=== PATIENT | male | born 1935 | race Caucasian/White ===

== ENCOUNTER 2020-08-02 10:48 | Outpatient (CLI) | payer MEDICARE, OTHER, SELFPAY ==
--- NOTE | 2020-08-02 11:02 | USCV_ITS ---
Jesus Saucedo Age: 84 Gender: M : 1935 Exam Date: 08/02/2020 11:22 Ordering Phys: Lisa Murrieta MD Technologist: Leslie Hernandez [place] [facility] [place]: afib BP: 166 / 94 HR: 57 Rhythm: Atrial fibrillation Technical Quality: Good MEASUREMENTS (Male / Female) Normal Values 2D ECHO LV Diastolic Diameter PLAX 6.0 cm 4.2 - 5.9 / 3.9 - 5.3 cm LV Systolic Diameter PLAX 4.3 cm LV Chamber Size 4.6 cm IVS Diastolic Thickness 1.3 cm 0.6 - 1.0 / 0.6 - 0.9 cm IVS Systolic Thickness 2.3 cm LVPW Diastolic Thickness 1.5 cm 0.6 - 1.0 / 0.6 - 0.9 cm LVPW Systolic Thickness 1.9 cm RV Chamber Size 3.0 cm LVOT Diameter 2.1 cm LV Ejection Fraction 2D Teich 54.0 % LV Ejection Fraction MOD 2C 36.9 % LV Ejection Fraction 2C AL 42.1 % LA Diameter 6.7 cm LA Width 3.5 cm LA Height 5.4 cm RA Width 4.0 cm RA Height 4.8 cm Aorta at Sinotubular Diameter 3.2 cm M-MODE LV Diastolic Diameter MM 5.3 cm 4.2 - 5.9 / 3.9 - 5.3 cm LV Systolic Diameter MM 4.5 cm LV Ejection Fraction MM Teich 32.6 % IVS Diastolic Thickness MM 2.0 cm 0.6 - 1.0 / 0.6 - 0.9 cm IVS Systolic Thickness MM 2.1 cm LVPW Diastolic Thickness MM 2.4 cm 0.6 - 1.0 / 0.6 - 0.9 cm LVPW Systolic Thickness MM 2.7 cm RV Diastolic Diameter MM 1.9 cm Aortic Annulus Diameter 3.4 cm LA Ao Ratio MM 1.9 MV E Point Septal Separation 1.2 cm DOPPLER AV Peak Velocity 167.0 cm/s LVOT Peak Velocity 58.0 cm/s AV Area Cont Eq vti 1.5 cm squared AV Area Cont Eq pk 1.2 cm squared MV Area PHT 3.9 cm squared Mitral E to A Ratio 75.8 MV E' Velocity 91.0 cm/s TR Peak Velocity 267.7 cm/s TR Peak Gradient 28.7 mmHg TR Mean Velocity 188.1 cm/s TR Mean Gradient 16.5 mmHg TR Velocity Time Integral 94.8 cm TV Peak E Velocity 57.0 cm/s Right Atrial Pressure 3.0 mmHg Pulmonary Artery Systolic Pressu 31.7 mmHg PV Peak Velocity 87.0 cm/s RV Acceleration Time 0.1 s RV Ejection Time 0.4 s RV AcT/ET 0.3 FINDINGS Left Ventricle Mildly dilated left ventricle. LV systolic function is mildly reduced with EF of 40 to 45%. Mild global hypokinesis is seen. Diastolic function is indeterminate because of atrial fibrillation. Right Ventricle The right ventricle is normal in size and function. Right Atrium The right atrium is enlarged. Left Atrium The left atrium is severely enlarged. Mitral Valve Structurally normal mitral valve without significant stenosis or prolapse. There is moderate eccentric mitral regurgitation. Aortic Valve Structurally normal aortic valve without significant sclerosis or stenosis. There is mild aortic regurgitation. Tricuspid Valve Structurally normal tricuspid valve without significant stenosis. Mild tricuspid regurgitation. RVSP is 30 to 35 mmHg. This is consistent with mild pulmonary hypertension. Pulmonic Valve Structurally normal pulmonic valve without significant stenosis. There is no pulmonic regurgitation. Pericardium Normal pericardium without effusion. Aorta Normal ascending aorta dimension. CONCLUSIONS Mildly dilated left ventricle. LV systolic function is mildly reduced with EF of 40 to 45%. Mild global hypokinesis is seen. Diastolic function is indeterminate because of atrial fibrillation. Biatrial enlargement is seen. Mitral valve has moderate eccentric mitral regurgitation. Mild pulmonary hypertension is seen. Mild aortic regurgitation is noted. No comparison studies are available. Ayaan Sen MD (Electronically Signed) Final Date: 11 August 2020 17:42 S
== END 2020-08-02 10:49 | disposition home or self-care (01) ==
LOC: RAD 10:57
PROVIDERS: PCP Family Medicine; Visit Provider Internal Medicine Interventional Cardiology
DX: I48.91 Unspecified atrial fibrillation (principal); I25.10 Atherosclerotic heart disease of native coronary artery without angina pectoris; E78.5 Hyperlipidemia, unspecified; I42.9 Cardiomyopathy, unspecified; I08.0 Rheumatic disorders of both mitral and aortic valves; I27.20 Pulmonary hypertension, unspecified
CPT/HCPCS: 93306

== ENCOUNTER 2021-04-11 15:46 | Inpatient (IN) | payer MEDICARE, OTHER, SELFPAY ==
[2021-04-11] VITALS (12 sets, daily range): BP systolic 97–140; BP diastolic 51–73; PULSE 49–83; RESP 14–20; TEMP 36.4–37.1; O2SAT 83–100
--- NOTE | 2021-04-11 | XRR_ITS ---
PROCEDURE INFORMATION: Exam: XR Chest Exam date and time: 04/11/2021 4:43 PM Age: 85 years old Clinical indication: Device placement; Other: Et and og placement; Additional info: Et/og placement TECHNIQUE: Imaging protocol: XR of the chest. Views: 1 view. COMPARISON: No relevant prior studies available. FINDINGS: Tubes, catheters and devices: The endotracheal tube tip is in the upper thoracic trachea 5.7 cm above the robin. The orogastric tube is positioned in the stomach, well beyond the diaphragmatic hiatus. The tip is not imaged. Lungs: There is no consolidation. Pleural spaces: There is no pleural effusion or pneumothorax. Heart/Mediastinum: There is moderate enlargement of the cardiac silhouette. Bones/joints: Bones are unremarkable. XR/XR chest 1V portable [id number] IMPRESSION: 1. Endotracheal tube is in the upper thoracic trachea 5.7 cm above the robni. 2. OG tube is in the stomach. The tip is not imaged. Radiation Dose CTDIVOL = (mGy): DLP = (mGy-cm)
--- NOTE | 2021-04-11 16:02 | ECG_ITS ---
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 Measurements Intervals [place] Rate: 198 P: TX: QRS: 220 QRSD: 160 T: 60 QT: 232 QTc: 422 Interpretive Statements VENTRICULAR TACHYCARDIA RIGHT AXIS DEVIATION [QRS AXIS > 100] RIGHT BUNDLE BRANCH BLOCK [120+ ms QRS DURATION, UPRIGHT V1, 40+ ms S IN I/aVL/V4/V5/V6] No previous ECG available for comparison Electronically Signed On 04-12-2021 21:31:50 CDT by Ayaan Sen M.D. [id number] brissa
--- NOTE | 2021-04-11 16:20 | ECG_ITS ---
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 Measurements Intervals [place] Rate: 58 P: AR: QRS: 11 QRSD: 139 T: -36 QT: 481 QTc: 474 Interpretive Statements JUNCTIONAL RHYTHM DIFFUSE ST DEPRESSIONS No previous ECG available for comparison Electronically Signed On 04-12-2021 21:31:05 CDT by Ayaan Sen M.D. [id number] f
--- NOTE | 2021-04-11 16:24 | XACV_ITS ---
Ht: 188 cm Wt: 91 kg BSA: 2.18 m2 Gender: Male : 1935 Any Known Allergies: No known allergies Exam Priority: Routine Procedure(s): Procedure Description: Diagnostic procedure Procedure Description: PCI procedure Procedure Description: Drug Eluting Coronary Stent Procedure Description: PTCA Procedure Description: Miscellaneous Procedure Description: ACT Procedure Description: Coronary Angiography Diagnostic Cath Status: Emergency Diagnostic Findings * INDICATION: Patient presented with chest pain and dizziness. Found to be in ventricular tachycardia in the emergency room. Underwent successful cardioversion and is intubated and sedated. * Circumflex has luminal irregularities. * Left Main: minimal 30% stenosis, VENKAT: 3 flow. * Proximal Left Anterior Descending to Mid Left Anterior Descending: significant 80% stenosis, VENKAT: 3 flow. * Proximal Right Coronary Artery: subtotal occlusion, VENKAT: 3 flow. * Coronary angiography shows right dominance. PCI Status: Emergency PCI Indication: Other Interventional Findings * INDICATION: Ventricular tachycardia/ Critical ostial RCA/ Severe proximal LAD stenosis. * Procedure details: We engaged RCA with a JR4 guide catheter. IV heparin was administered to maintain an ACT above 250 seconds. A 0.014 run-through guidewire was used to cross the stenosis and was placed in distal vessel. 2.5 x 8 mm semicompliant balloon was used to predilate the stenosis in the ostial RCA. This was followed by placement of 3.0 x 12 mm resolute [place] drug-eluting stent. We postdilated the proximal part of stent with 3.5 x 8 mm NC balloon. There was concern for geographical miss of the ostium. We then placed a second stent 3.0x8mm ALEXANDRA proximally. Same 3.5x8mm NC balloon was used to post dilate the stent. Guidewire and guide catheter were removed. Final angiogram was performed that showed excellent stent expansion, VENKAT-3 flow and no residual stenosis. Guidewire and guide catheter were removed. We then turned our attention to the proximal LAD. We engaged the left main artery with XB 3.5 guide catheter. This was followed crossing the stenosis of 0.014 run-through guidewire. We predilated LAD stenosis with a 2.5 x 8 mm semicompliant balloon. With then placed 3.0 x 18 mm resolute [place] drug-eluting stent in proximal LAD. This was followed by placement of a second 3.0 x 15 mm drug-eluting stent overlapping with the proximal stent. We postdilated proximal part of stents with 3.5 x 8 mm NC balloon. At this time, final angiogram was performed that showed excellent stent expansion, no residual stenosis at VENKAT-3 flow.Patient left the Ux Architect in a stable condition. * Proximal Left Anterior Descending to Mid Left Anterior Descendin% stenosis treated with a AB TREK 2.50X8 RX BALLOON, AB TREK 2.75X15 RX BALLOON, MDT R LORAINE 3.0X18 ALEXANDRA, MDT R LORAINE 3.0X15 ALEXANDRA, and MDT NC EUPHORA RX 3.39T26CE BALLOON. 0% residual stenosis, VENKAT: 3 flow. * Proximal Right Coronary Artery: 99% stenosis treated with a AB TREK 2.50X8 RX BALLOON, MDT R LORAINE 3.0X12 ALEXANDRA, MDT NC EUPHORA RX 3.50F63VN BALLOON, and MDT R LORAINE 3.0X8 ALEXANDRA. 0% residual stenosis, VENKAT: 3 flow. Conclusions 1. Severe 99% ostial RCA stenosis s/p successful revascularization with ALEXANDRA x 2. 2. Severe proximal LAD stenosis s/p successful revascularization with ALEXANDRA X 2. Recommendations * Transfer to ICU. * Continue plavix. Will restart Eliquis tonight. * High intensity statin therapy. * Attempt extubation today. * Beta ashley therapy. Interventional RX Recommendation: PCI w/o planned CABG Diagnostic RX Recommendation: PCI w/o planned CABG Anticoagulation: Heparin Pressures Phase:Rest AO : 118 / 56 ( 78 ) @ 4:21:00 PM 186 / 93 ( 130 ) @ 4:46:00 PM 99 / 56 ( 73 ) @ 5:12:00 PM 126 / 64 ( 86 ) @ 5:25:00 PM Clinical Evaluation EBL: 5mL-10mL Procedural Details Pre-Procedure Time Out. Identified patient by full name and date of as verbalized by the patient/guarantor. Does the consent match the physician's order: N/A Emergent. Accurate & Complete Informed Consent: N/A Emergent. Inpatient/Outpatient History & Physical on Chart: N/A Emergent. If H&P is completed, is and addenduem needed: N/A Emergent; If yes, is the addendum complete: N/A Emergent. Visualize and Verify Site with Patient/Guarantor: N/A. Relevant Radiology Images available: N/A Emergent. Pre-op teaching completed and patient verbalized understanding. The risks, benefits, and alternatives of sedation and/or procedure were discussed by physician. The patient agrees to continue. Procedure started. [facility] Clinical Fraility Score: 5: Mildly Frail. Ux Architect Indications: ACS <= 24 hours. Chest Pain Symptom Assessment: Asymptomatic. Cardiovascular Instability: Yes, if yes, Hemodynamic Instability. Correct patient, site and procedure confirmed by cath team. PERRLA. 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 Lungs clear x 5 lobes. Equipment: 6F - Femoral. Physician arrived. Cardiac Cath Pack. ACIST Manifold Kit Model BT 2000. Heparinized Saline (2 units/mL), 1000 mL bag. Kit, Micropuncture. Physician scrubbed in. Immediate Pre-Procedure Time Out. Correct Patient: Yes; Correct Procedure: Yes; Correct Site: N/A Emergent; Correct Patient Position: N/A Emergent; Correct Supplies: N/A Emergent; Dried Flammable Prep: N/A Emergent; Blood Products Available: N/A Emergent;. bilateral groins was prepped with chloroprep then draped in the usual sterile fashion. Baseline sample Acquired. HR: 54 BPM. Patient arrived to lab pack chemist on a ventilator and will be managed by respiratiory. Lidocaine 1% infiltrated to the right groin. Arterial access obtained with micropuncture set. A 5 malagasy JL4 catheter in over wire. Multiple views taken of left coronary artery. Catheter removed over the standard wire. A CRD 5F JR4 Diagnostic Catheter was advanced over the wire and used for Right coronary angiography. Catheter removed over the standard wire. Inventory is CRD 6FR JR 4 GUIDE 100cm. Trinidad Graves RN circulating nurse for procedure. 6 malagasy JR 4 guide catheter was inserted over the wire. Runthrough guidewire was advanced through the guide catheter to lesion in the prox RCA. Inflation number : 1 A AB TREK 2.50X8 RX BALLOON was prepped and advanced across the Prox RCA , then inflated to 8 KAYLAH for 0:06 seconds. Inflation number: 2 The AB TREK 2.50X8 RX BALLOON was reinflated across the Prox RCA, to 8 KAYLAH for 0:18 seconds. Inflation number: 3 The AB TREK 2.50X8 RX BALLOON was reinflated across the Prox RCA, to 12 KAYLAH for 0:16 seconds. Balloon out. Inflation Number : 4 A MDT R LORAINE 3.0X12 ALEXANDRA -Lot Number# [id number] exp date 12/02/2023 was prepped and advanced across the Prox RCA. The stent was deployed at 14 KAYLAH for 0:25 seconds. Stent balloon out over wire. Results checked. Inflation number : 5 A MDT NC EUPHORA RX 3.44Z50RC BALLOON was prepped and advanced across the Prox RCA , then inflated to 12 KAYLAH for 0:24 seconds. Inflation number: 6 The MDT NC EUPHORA RX 3.12F56UN BALLOON was reinflated across the Prox RCA, to 14 KAYLAH for 0:17 seconds. Inflation number: 7 The MDT NC EUPHORA RX 3.84D19AR BALLOON was reinflated across the Prox RCA, to 12 KAYLAH for 0:13 seconds. Balloon out. Inflation Number : 8 A MDT R LORAINE 3.0X8 ALEXANDRA -Lot Number# [id number] exp date 12/24/2021 was prepped and advanced across the Prox RCA. The stent was deployed at 12 KAYLAH for 0:23 seconds. Stent balloon out over wire. Pt arrived to lab pack chemist with multiple drips running, including fentanyl, versed, dopamine. Inflation number: 9 The MDT NC EUPHORA RX 3.56U89NA BALLOON was reinflated across the Prox RCA, to 14 KAYLAH for 0:18 seconds. Balloon out. Wire out. Results checked. Guide catheter out. ACT drawn. Results 251 seconds. Therapeutic limits - pre-heparin administration 90-150 seconds and monitoring heparin during a vascular procedure >250 seconds. Inventory is CRD 6 FR XB 3.5 GUIDE. 6 malagasy XB 3.5 guide catheter was inserted over the wire. Runthrough guidewire was advanced through the guide catheter to lesion in the prox LAD. A second Runthrough guidewire was advanced through the guide catheter to lesion in the mid LAD. Second runthrough wire removed. Inflation number: 1 The AB TREK 2.50X8 RX BALLOON was reinflated across the Prox LAD, to 8 KAYLAH for 0:15 seconds. Inflation number: 2 The AB TREK 2.50X8 RX BALLOON was reinflated across the Prox LAD, to 12 KAYLAH for 0:27 seconds. Balloon out. Inflation number : 3 A AB TREK 2.75X15 RX BALLOON was prepped and advanced across the Prox LAD , then inflated to 10 KAYLAH for 0:22 seconds. Inflation number: 4 The AB TREK 2.75X15 RX BALLOON was reinflated across the Prox LAD, to 10 KAYLAH for 0:16 seconds. Inflation number: 5 The AB TREK 2.75X15 RX BALLOON was reinflated across the Prox LAD, to 8 KAYLAH for 0:22 seconds. Inflation number: 6 The AB TREK 2.75X15 RX BALLOON was reinflated across the Prox LAD, to 8 KAYLAH for 0:17 seconds. Balloon out. Inflation Number : 7 A MDT R LORAINE 3.0X18 ALEXANDRA -Lot Number# [id number] exp date 07/28/2022 was prepped and advanced across the Prox LAD. The stent was deployed at 12 KAYLAH for 0:32 seconds. Stent balloon out over wire. Inflation Number : 8 A MDT R LORAINE 3.0X15 ALEXANDRA -Lot Number# [id number] exp date 06/15/2022 was prepped and advanced across the Prox LAD. The stent was deployed at 12 KAYLAH for 0:25 seconds. Inflation number: 9 The stent balloon was then re-inflated across the Prox LAD to 12 KAYLAH for 0:12 seconds. Stent balloon out over wire. Inflation number: 10 The MDT NC EUPHORA RX 3.58Q46VC BALLOON was reinflated across the Prox LAD, to 16 KAYLAH for 0:16 seconds. Inflation number: 11 The MDT NC EUPHORA RX 3.18O01VK BALLOON was reinflated across the Prox LAD, to 12 KAYLAH for 0:15 seconds. Inflation number: 12 The MDT NC EUPHORA RX 3.05P18FI BALLOON was reinflated across the Prox LAD, to 16 KAYLAH for 0:22 seconds. Balloon out. Results checked. Wire out. Guide catheter out. Blood drawn to send to lab. ACT drawn. Results 349 seconds. Therapeutic limits - pre-heparin administration 90-150 seconds and monitoring heparin during a vascular procedure >250 seconds. A Right femoral angiogram was performed to determine safe placement of closure device. Ventilator Settings: TV: 500, FI02: 100, Mode: ac-vc, Rate: 14, PEEP: 5. A Angio-Seal VIP ([facility]. Kailash) was successful obtaining hemostatsis at the Right Femoral artery insertion site. Angioseal placed without complications. No signs or symptoms of hematoma noted. Sterile dressing applied per usual sterile fashion. Post Procedure: Pulses reassessed and unchanged. PERRLA. 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 Post-op diagnosis: cardiac arrest. Complications: none. Estimated blood loss: 5mL-10mL. No VTE prophylaxis required. Medication's Wasted: Nitro = 49.6 mg. Medication's Wasted: Heparin = 1000. units. Contrast type used: Omnipaque 300 mgI/mL, 500 mL bottle. Procedure completed. Patient transferred by bed to ICU. Vital chart was stopped. Access Site Site: Right Femoral artery Sheath Size: 6 Fr Hemostasis Method: Angio-Seal VIP ([facility]. Kailash) Hemostasis Success: Successful Procedure Medications Start: 5:19 PM Stop: 5:19 PM Medication: Heparin Amount: 5000 units Route: I.V. Start: 5:30 PM Stop: 5:30 PM Medication: Heparin Amount: 1000 units Route: I.V. Start: 5:30 PM Stop: 5:30 PM Medication: Aggrastat 12.5 mg/250 mL Amount: 46 ml Route: I.V. bolus Start: 5:33 PM Stop: 5:33 PM Medication: Aggrastat 12.5 mg/250 mL Amount: 16.6 ml/hr Route: I.V. bolus Start: 5:37 PM Stop: 5:37 PM Medication: Nitrogylcerin Amount: 200 mcg Route: I.C. Start: 5:53 PM Stop: 5:53 PM Medication: Heparin Amount: 2000 units Route: I.V. Start: 5:53 PM Stop: 5:53 PM Medication: Hydralazine Amount: 10 mg Route: I.V. Start: 6:06 PM Stop: 6:06 PM Medication: Heparin Amount: 1000 units Route: I.V. Start: 6:10 PM Stop: 6:10 PM Medication: Versed Amount: 1 mg Route: I.V. Start: 6:21 PM Stop: 6:21 PM Medication: Nitrogylcerin Amount: 200 mcg Route: I.C. Start: 6:22 PM Stop: 6:22 PM Medication: Heparin Amount: 1000 units Route: I.V. I, the attending physician, have reviewed and verified all procedure medications. Yes, all medications given per verbal order History/Risk Factors Hypertension: No Dyslipidemia: No Peripheral Arterial Disease (PAD): No Myocardial Infarction (WI): No Obesity: No Renal Disease: No Prior Interventions PCI: Yes CABG: No Valve Surgery: No Report Signatures Finalized by Ayaan Sen MD on 04/26/2021 01:58 PM
--- NOTE | 2021-04-11 16:53 | P.HP_ITS ---
Providers/Chief Complaint Admitting Physician: Ayaan Sen MD Primary Care Provider: Gene Peralta Chief Complaint: CP, Dizzy, Trouble Breathing History of Present Illness Jesus Saucedo is a 85 year old male with PMH of Coronary artery disease and hypertension patient started presented with chest pain and dizziness. According to his daughter, he was driving with her when complained of sudden onset dizziness, severe chest pain and shortness of breath. She switched places with him and drove him to the ER. In the ER he was found to be in Ventricular tachycardia and shocks x 3. He was also intubated. Per ER physician, he was mentating well even after the shock. Intubated and sedated. Post arrest EKG shows diffuse ST depressions. laboratory associate was activated and patient taken emergently to the collaborative physician. Coronary angiogram of the also had a thrombotic 99% occlusion of ostial RCA and severe proximal LAD stenosis. He underwent successful revascularization of both vessels. Review of Systems General: Reports: ROS unobtainable due to endotracheal tube and ROS unobtainable due to medical condition Medications/Allergies Home Medications Medication Instructions Recorded Confirmed Last Taken Type apixaban [Eliquis] 2.5 mg PO BID 04/12/21 04/12/21 Unknown History carvedilol 12.5 mg PO BID 04/12/21 04/12/21 Unknown History ezetimibe 10 mg PO DAILY 04/12/21 04/12/21 Unknown History furosemide 40 mg PO BID 04/12/21 04/12/21 Unknown History isosorbide mononitrate 30 mg PO DAILY 04/12/21 04/12/21 Unknown History losartan 25 mg PO DAILY 04/12/21 04/12/21 Unknown History nitroglycerin 0.4 mg SUBLINGUAL Q5MIN PRN 04/12/21 04/12/21 Unknown History potassium chloride 20 meq PO BID 04/12/21 04/12/21 Unknown History rosuvastatin 40 mg PO DAILY 04/12/21 04/12/21 Unknown History Allergies Allergy/AdvReac Type Severity Reaction Status Date / Time JACKIE Inhibitors Allergy Unknown Unknown Verified 04/12/21 10:57 PFSH Acute PFSH: Medical History (Updated 04/12/21 @ 11:15 by Ayaan Sne M.D) Coronary artery disease Hypertension Vitals/I&O/Wt Last Vital Signs Temp 97.5 F L 04/11/21 16:41 Pulse 83 04/11/21 16:41 Resp 20 H 04/11/21 16:41 Pulse Ox 96 04/11/21 16:41 Physical Exam Narrative: EXAM NARRATIVE: GENERAL: Patient is intubated and sedated NECK: No jugular vein distension. [] HEENT: No cyanosis. No icterus. No pallor. [] HEART: Bradycardic. S1 plus S2. LUNGS: Mild crackles ABDOMEN: Soft, nontender and nondistended. Positive bowel sounds. No guarding, rebound or tenderness. [] CENTRAL NERVOUS SYSTEM: Intubated and sedated EXTREMITIES: Lower extremities with 1+ edema bilaterally. Pulses palpable in the lower extremities, both dorsalis pedis and posterior tibial. [] Data : 04/12/21 04:51 04/12/21 04:51 A&P Assessment and plan (1) Ventricular tachycardia: Status: Acute (2) Coronary artery disease: Status: Acute (3) Hypertension: Status: Acute (4) Congestive heart failure: Status: Acute Patient presented with acute onset chest pain and went into ventricular tachycardia/cardiac arrest in the ER, had cardioversion shocks x 3. Taken emergently to collaborative physician Transfer to ICU Aspirin and Plavix Wean off lidocaine drip. We we will start metoprolol at a low dose versus bradycardic. Order echocardiogram. ECHO from july showed mildly reduced LV systolic function High intensity statin therapy. Monitor electrolytes and creatinine We will consult the hospitalist team for help with management of Vent and other medical conditions. Appreciate their recommendations. Attestations Medical Necessity Statement*: Care expected to cross 2 midnights. Patient presented with NM and cardiac arrest. Status post successful revascularization. Intubated and sedated currently. Coding Level of Care Code Acute Change Management Specialist for [facility] Diagnoses Ventricular tachycardia I47.2 Coronary artery disease I25.10 Hypertension I10 Congestive heart failure I50.9
[2021-04-11 17:06] LABS: Glucose Point of Care 141 mg/dL (70-110)
--- NOTE | 2021-04-11 17:06 | PC.NURSE ---
1608 DR Evans, rt, Chadd rn, Curly rn, Lennie rn Pete rn to bedside, left ac 18 dominique IV started, pads placed. patient alert, pale diaphoretic 1610 shock #1 delivered 1611 shock #2 delivered 1612 shock #3 delivered, 300 of Amioderone bolus in 250ml, sinus melissa, 2 mg versed. 1616 1 gram of magnesium 1618 18 dominique iv right ac, Stemi alert called 1622 accucheck 141, time ouot and prep for intubation 1623 20 of etomidate, 10of vec 1624 4000 heperin bolus, et tube 23 lip, 1627 lidocane drip started at 1 1631 18 fench og tube placed, asa given 1636 dopamine started at 3 mcg 1641 fentynal stared at 25 mg, versed stared at 2, plavix 600 mg oc tube, 1644 vs herat rate 47, bp/ 88/61, dopamine increased to 5mcg 1650 20 dominique iv left hand, 1654 cathlab to bedside, report by Dr Nowak 1656 patient to cathlab,
--- NOTE | 2021-04-11 17:14 | ED_ITS ---
HPI - Chest Pain General: Chief Complaint: Chest Pain Stated Complaint: CP, Dizzy, Trouble Breathin Time Seen by Provider: 04/11/21 16:31 History of Present Illness: HPI narrative: 85-year-old male presented to the emergency room with complaint of chest pain I was called for a critical patient to room 2 when I arrived patient was found to be in sustained V. fib was lethargic and poorly responsible MD complaint: chest pain Onset (ago): minute(s) Review of Systems General: Reports: ROS unobtainable due to medical condition PFSH ED PFSH: Medical History Acute MS Coronary artery disease Coronary artery disease Hypertension Ventricular tachycardia Physical Exam Narrative: EXAM NARRATIVE: Patient in unstable condition on arrival once monitor was placed he was found to be in V. tach. He was able to vocalize that he was having chest pain similar to his previous heart attack. See notes below. ACLS protocol was initiated. Resp: AUSCULTATION: crackles and diminished lung sounds OTHER: Exam prior to intubation Cardio: COMMON NORMALS: regular rate and regular rhythm RATE: regular rate and tachycardic RHYTHM: regular rhythm GI: COMMON NORMALS: Normal to inspection, nondistended, normoactive bowel sounds present, Soft to palpation, non-tender, No hepatosplenomegaly present and no masses PALPATION: Yes Soft to palpation and Yes No hepatosplenomegaly present Extremity: COMMON NORMALS: no pedal edema OTHER: Femoral pulses equal bilaterally Procedures Intubation Time out performed: Yes sedative: Etomidate paralytic: Succinylcholine Laryngoscope: fiber optic video scope Assist Device Used: fiber optic device ET Tube Size: 8.5 ET Tube Uncuffed: No Tube Secured Depth (cm): 22 Tube Placement Confirmation: visualized tube passing through cords, equal breath sounds bilaterally, no breath sounds over epigastrium and confirmation by capnometry Patient Tolerated Procedure: well Intubation Complications: none Course Vital Signs: Vital signs: Vital Signs Temperature 98.7 F 04/15/21 10:51 Pulse Rate 76 04/15/21 10:51 Respiratory Rate 18 04/15/21 10:51 Blood Pressure 175/95 04/15/21 10:51 Pulse Oximetry 98 04/15/21 10:51 MDM - Chest Pain MDM Narrative: Medical decision making narrative: See code note for full details. Initially on arrival patient very unstable once we had him on the monitor he was found to be in V. tach he was defibrillated 3 times and then maintained in normal sinus rhythm. He was very unstable and in respiratory distress. He was intubated and started on the ventilator. Subsequently he was given amiodarone and lidocaine. We also gave dopamine to support heart rate and blood pressure. Patient tolerated these interventions well. Cardiology was called during this process and consulted in the room. Once patient was adequately stabilized he was transferred directly to the Rotary Filter Operator under the care of Dr. Oshea. Lab Data: Labs: Lab Results 04/11/21 04/11/21 04/11/21 16:21 17:46 18:27 WBC 6.4 10^3/uL 10^3/ uL (4.0-10.0) RBC 3.56 10^6/uL L 10 ^6/uL (4.1-5.3) Hgb 11.2 g/dL L g/dL (11.7-16.6) Hct 33.5 % L % (42.0-52.0) MCV 94.1 fl H fl (80-94) MCH 31.5 pg pg (28.0-34.0) MCHC 33.4 g/dL g/dL (30.0-36.0) RDW 13.2 % % (12.1-15.1) Plt Count 143 10^3/cmm 10^3 /cmm (130-400) MPV 10.0 fL fL (7.4-10.4) Neut % (Auto) 74.9 % % Lymph % (Auto) 18.7 % % [place] % (Auto) 2.8 % % Eos % (Auto) 2.7 % % Baso % (Auto) 0.3 % % Neut # (Auto) 4.78 10^3/uL 10^3 /uL (1.8-7.7) Lymph # (Auto) 1.2 10^3/uL 10^3/ uL (0.8-4.8) [place] # (Auto) 0.2 10^3/uL 10^3/ uL (0.2-0.9) Eos # (Auto) 0.2 10^3/uL 10^3/ uL (0.0-0.8) Baso # (Auto) 0.0 10^3/uL 10^3/ uL (0.0-0.1) Nucleated RBC % (a uto) 0 % % Nucleated RBCs # 0.0 /100WBC /100W BC Specimen Type Arterial Sample Site Art line ABG pH 7.44 (7.35-7.45) ABG pCO2 32.0 mmHg L mmHg (35-45) ABG pO2 70.5 mmHg L mmHg (80.0-100.0) ABG HCO3 21.8 mmol/L L mmo l/L (22-26) ABG O2 Saturation 95.3 ABG Base Excess -1.6 mmol/L mmol/ L (-2.0-2.0) Daniel Test Pos A-a O2 Gradient 22.5 mmHg H mmHg (5-10) Hematocrit 38.5 % L % (42-52) Hgb O2 Saturation 93.6 % L % (95-100) Carboxyhemoglobin 0.9 %THgb %THgb (0.4-20.1) Methemoglobin 0.9 % % (0.4-1.5) Total Hemoglobin 12.6 g/dL L g/dL (14-18) Sodium 137.0 mmol/L mmol /L (131-143) Potassium 3.1 mmol/L L mmol /L (3.5-5.0) Glucose 193.0 mg/dL H mg/ dL (70-115) Ionized Calcium 1.1 mmol/L mmol/L (1.1-1.4) O2 Delivery Device Vent FiO2 40.0 % % Tidal Volume 0.50 PEEP 5.0 cmH20 cmH20 Incising Machine Operator ID [place] Chloride Carbon Dioxide Anion Gap BUN Creatinine GFR Calculation POC Glucose 141 mg/dL H mg/dL (70-110) Calculated Osmolal ity Calcium NT-Pro-B Natriuret Pep 04/11/21 04/11/21 18:27 18:27 WBC RBC Hgb Hct MCV MCH MCHC RDW Plt Count MPV Neut % (Auto) Lymph % (Auto) [place] % (Auto) Eos % (Auto) Baso % (Auto) Neut # (Auto) Lymph # (Auto) [place] # (Auto) Eos # (Auto) Baso # (Auto) Nucleated RBC % (a uto) Nucleated RBCs # Specimen Type Sample Site ABG pH ABG pCO2 ABG pO2 ABG HCO3 ABG O2 Saturation ABG Base Excess Daniel Test A-a O2 Gradient Hematocrit Hgb O2 Saturation Carboxyhemoglobin Methemoglobin Total Hemoglobin Sodium 133 mmol/L L mmol /L (136-145) Potassium 3.1 mmol/L L mmol /L (3.5-5.1) Glucose 231 mg/dL H mg/dL (65-115) Ionized Calcium O2 Delivery Device FiO2 Tidal Volume PEEP Incising Machine Operator ID Chloride 102 mmol/L mmol/L (98-107) Carbon Dioxide 20 mmol/L L mmol/ L (22-29) Anion Gap 14.1 (5-19) BUN 11 mg/dL mg/dL (8-23) Creatinine 0.9 mg/dL mg/dL (0.7-1.2) GFR Calculation Not Reportable POC Glucose Calculated Osmolal ity 283 mOsm/kg L mOs m/kg (285-295) Calcium 7.7 mg/dL L mg/dL (8.5-10.5) NT-Pro-B Natriuret Pep 1446 pg/mL H pg/m L (0-450) Critical Care Time Critical Care Time: Critical Care Time: Yes Total Critical Care Time: 30 Attestation: This case had a high probability of a clinically significant, sudden, or life threatening deterioration of this patient's condition which required my full and direct attention, intervention and personal management. Patient required ACLS protocols. Critical care separate of other procedures particularly intubation. Discharge Plan Discharge Patient Disposition: Admitted As Inpatient Admit Provider: Ayaan Sen Clinical Impression: Acute non-ST elevation myocardial infarction (NSTEMI), Sustained VT (ventricular tachycardia) Condition: Stable Discharge Diet: Cardiac Discharge Activity: Increase activity as tolerated Coding Level of Care Code ED Field Logistics Coordinator for Lawson Zelaya
[2021-04-11 17:58] LABS: ABG PH Result 7.44 (7.35-7.45); Arterial Blood Gas Hematocrit 38.5 % (42-52); Base Excess ABG -1.6 mmol/L (-2.0-2.0); Blood Gas Allen Test Pos; Blood Gas Sample Type Arterial; Carboxyhemoglobin 0.9 %THgb (0.4-20.1); HCO3 ABG 21.8 mmol/L (22-26); HGB O2 Sat 93.6 % (95-100); Ionized Calcium Level - ABG 1.1 mmol/L (1.1-1.4); Methemoglobin 0.9 % (0.4-1.5); Oxygen Saturation ABG 95.3; PO2 ABG 70.5 mmHg (80.0-100.0); Potassium Level - ABG 3.1 mmol/L (3.5-5.0); Total Hemoglobin 12.6 g/dL (14-18)
[2021-04-11 17:59] LABS: Alveolar-Arterial Oxygen Gradi 22.5 mmHg (5-10); Blood Gas Operator Identificat MONRO; Blood Gas Sample Site ART LINE; Oxygen Device VENT
[2021-04-11 18:35] LABS: Basophils % 0.3 %; Eosinophils # 0.2 10^3/uL (0.0-0.8); Eosinophils % 2.7 %; Hematocrit 33.5 % (42.0-52.0); Hemoglobin 11.2 g/dL (11.7-16.6); Lymphocytes # 1.2 10^3/uL (0.8-4.8); Lymphocytes % 18.7 %; Mean Corpuscular HGB Conc 33.4 g/dL (30.0-36.0); Mean Corpuscular Hemoglobin 31.5 pg (28.0-34.0); Mean Corpuscular Volume 94.1 fl (80-94); Monocytes # 0.2 10^3/uL (0.2-0.9); Monocytes % 2.8 %; Neutrophils # 4.78 10^3/uL (1.8-7.7); Neutrophils % 74.9 %; Nucleated Red Blood Cells % 0 %; Platelet Count 143 10^3/cmm (130-400); Red Blood Count 3.56 10^6/uL (4.1-5.3); Red Cell Distribution Width 13.2 % (12.1-15.1); White Blood Count 6.4 10^3/uL (4.0-10.0)
[2021-04-11 18:55] LABS: Anion Gap 14.1 (5-19); Blood Urea Nitrogen 11 mg/dL (8-23); Calcium 7.7 mg/dL (8.5-10.5); Carbon Dioxide 20 mmol/L (22-29); Chloride 102 mmol/L (98-107); Glucose 231 mg/dL (65-115); Osmolality Calculated 283 mOsm/kg (285-295); Potassium 3.1 mmol/L (3.5-5.1); Sodium 133 mmol/L (136-145)
--- NOTE | 2021-04-11 19:07 | PC.NURSE ---
Arrived from helper animal laboratory via bed, intubated and ventilated with BVM until ventilator hooked up per RT. Dr. Gauthier at bedside observed melissa cardia in the 40's and 50's no n.o. associated with melissa cardia. v.o. given to stop agrrastat at 2140 and get EKG
--- NOTE | 2021-04-11 19:37 | ECG_ITS ---
[facility] Test Date: 2021-04-11 Pat Name: Jesus Saucedo Department: Room: ICU10 Gender: Male Senior Tax Analyst: : 1935 Requested By: Ayaan Sen Order Number: [id number] Anders MD: Ayaan Sen M.D. Measurements Intervals [place] Rate: 49 P: [place]: QRS: -10 QRSD: 145 T: -33 QT: 517 QTc: 471 Interpretive Statements ATRIAL FIBRILLATION WITH SLOW VENTRICULAR RESPONSE Compared to ECG 04/11/2021 16:20:02 No significant changes Electronically Signed On 04-12-2021 21:40:31 CDT by Ayaan Sen M.D. [id number]
[2021-04-11] MEDS: potassium chloride premix 100 ML 25 MEQ IV (19:39)
[2021-04-11] MEDS: sodium chloride 0.9% 1,000 ML 100 ML IV (19:40)
[2021-04-11 20:23] LABS: NT Pro B Type Natriuretic Pept 1446 pg/mL (0-450)
[2021-04-11] MEDS: atorvastatin 40 mg Tablet PO (20:25)
--- NOTE | 2021-04-11 21:19 | PC.NURSE ---
HR drops down to 30s irregular with pauses and pvcs, MAP 62 to 63, Dr. Diaz at bedside gave v.o. to start dopamine, lidocaine drip thats dc on sep stopped
--- NOTE | 2021-04-11 21:23 | PM.CONSULT ---
Providers/Reason For Consult Consulting Physician/Specialty*: Anna Diaz MD Reason for Consult*: medical comorbidity management Attending Physician: Ayaan Sen M.D Primary Care Provider: Gene Peralta History of Present Illness History of Present Illness Jesus Saucedo is a 85 year old male that presented to ER today with acute onset chest pain, palpitations while driving, brought to ER by family and found to be in V fib. He was lethragc and poorly responsive per ER note, EKG showed diffuse ST segment depressions. Patient had CPR and defibrillation x 3. he was intubated and taken emergently to computer lab assistant where he was found to have critical LAD lesion and had stent placement. He has been brought to the ICU thereafter. He was briefly on dopamine for bradycardia which has since been discontinued. At time of evaluation, patient is intubated and sedated with fentanyl and versed. HR ranging between 45-50 with intermittent pauses, MAP currently at 65. Review of Systems General: Reports: ROS unobtainable due to endotracheal tube Meds/Allergies Current Medications Current Medications Generic Name Dose Route Start Last Admin Trade Name Freq PRN Reason Stop Dose Admin Atorvastatin Calcium 40 mg 04/11/21 21:00 04/11/21 20:25 Atorvastatin 40 Mg Tablet PO 40 mg BEDTIME RICARDO Administration Sodium Chloride 1,000 mls @ 100 mls/hr 04/11/21 19:15 04/11/21 19:40 Sodium Chloride 0.9% IV 100 mls/hr .Q10H RICARDO Administration Potassium Chloride 100 mls @ 25 mls/hr 04/11/21 19:15 04/11/21 19:39 K-Jaleel IV 04/11/21 23:14 25 mls/hr ONCE ONE Administration Metoprolol Tartrate 25 mg 04/11/21 19:10 04/11/21 19:40 Metoprolol Tartrate 50 Mg Tablet PO Not Given BID RICARDO PFSH Acute PFSH: Medical History Coronary artery disease Vitals/I&O/Wt Last Vital Signs Temp 97.5 F L 04/11/21 16:41 Pulse 54 L 04/11/21 19:10 Resp 15 04/11/21 19:15 BP 126/73 04/11/21 19:10 Pulse Ox 99 04/11/21 19:15 Weight last 48 hrs Weight 98.43 kg Physical Exam Narrative: EXAM NARRATIVE: General: intubated, sedated HEENT: pupils bilaterally equal and reactive Chest: Normal vesicular breath sounds CVS: S1-S2 regular, no murmurs, no tachycardia Abdomen: Soft, nontender, no organomegaly, bowel sounds present Neuro: No focal deficits, no facial deformity, AO x3, power 5/5 in all limbs A&P Assessment and plan (1) Acute LA: Status: Acute Qualifiers: Myocardial infarction type: non-ST elevation myocardial infarction Qualified Code(s): I21.4 - Non-ST elevation (NSTEMI) myocardial infarction (2) Coronary artery disease: Status: Acute Qualifiers: Coronary Disease-Associated Artery/Lesion type: [place] artery [place] vs. transplanted heart: [place] heart Associated angina: unspecified whether angina present Qualified Code(s): I25.10 - Atherosclerotic heart disease of [place] coronary artery without angina pectoris (3) Ventricular tachycardia: Status: Acute Additional A&P Information Presenting with acute LA and venticular arrhythmia s/p CPR, defibrilaltion x 3 , intubated upon arrival emergently taken to computer lab assistant s/p angiogram and ALEXANDRA in LAD In ICU for cirtical care thereafter Intubated- on fentanyl and versed currently - appropriately sedated Bradycardic with HR 45-50, MAP currently at 65, lidocaine infusion just turned off. Will monitor closely for improvement in HR. If persistent bradycardia &/or hypotension, will resume dopamine infusion. Currently on ASA and plavix, metoprolol, stain echocardiogram ordered, pending Consult Attestations Medical Necessity Statement: per admitting note, ICU care post acute LA Critical Care Time: The high probability of a clinically significant, sudden or life threatening deterioration of the patient's [cardiovascular, respiratory] system(s) required my full and direct attention, intervention and personal management. The critical care time is as shown. This time is in addition to time spent performing any reported procedures but includes the following: [x] Data and vital sign review and interpretation [x] Patient assessment, examination and intervention [x] Documentation [x] Medication orders and management Critical Care Time (min): 35 Coding Level of Care Code Acute Notching Machine Operator for Lawson Zelaya Diagnoses Acute LA I21.4 Myocardial infarction type: non-ST elevation myocardial infarction Coronary artery disease I25.10 Coronary Disease-Associated Artery/Lesion type: [place] artery [place] vs. transplanted heart: [place] heart Associated angina: unspecified whether angina present Ventricular tachycardia I47.2
--- NOTE | 2021-04-11 23:25 | PC.NURSE ---
fentanyl and versed running from pathology laboratory aide not scanned in sep, Rx brought new labels to scan
[2021-04-12] VITALS (30 sets, daily range): BP systolic 93–162; BP diastolic 48–95; PULSE 50–81; RESP 13–18; O2SAT 93–99
[2021-04-12 01:02] LABS: INR 1.18 (0.8-1.2)
[2021-04-12 01:04] LABS: Partial Thromboplastin Time 47.7 SECONDS (23.9-36.7)
--- NOTE | 2021-04-12 04:00 | XRR_ITS ---
PROCEDURE INFORMATION: Exam: XR Chest Exam date and time: 04/12/2021 4:00 AM Age: 85 years old Clinical indication: Device placement; Ett placement (vent status); Additional info: Tubes, lines TECHNIQUE: Imaging protocol: XR of the chest. Views: 1 view. Total images: 1 COMPARISON: CR XR chest 1V portable [id number] 04/11/2021 4:29 PM FINDINGS: Tubes, catheters and devices: An endotracheal tube is present, terminating above the robin by 5 cm. Enteric tube is seen with the tip in the body of the stomach. Lungs: Nonspecific bibasilar opacities, favoring atelectasis or pneumonia. Pleural spaces: Unremarkable. No pleural effusion. No pneumothorax. Heart/Mediastinum: Heart is enlarged but stable when compared to the prior exam. Bones/joints: Osseous structures are unchanged from the prior exam. XR/XR chest 1V portable [id number] IMPRESSION: 1. An endotracheal tube is present, terminating above the robin by 5 cm. 2. Enteric tube is seen with the tip in the body of the stomach. 3. Heart is enlarged but stable when compared to the prior exam. 4. Nonspecific bibasilar opacities, favoring atelectasis or pneumonia. Radiation Dose CTDIVOL = (mGy): DLP = (mGy-cm)
--- NOTE | 2021-04-12 04:07 | PC.NURSE ---
approximately 2300 Dr. Diaz approved order for foly insertion, approximately 0000 bleeding from mouth and penis reported to dr Diaz, clotting times drawn
[2021-04-12 04:11] LABS: ABG PH Result 7.51 (7.35-7.45); Arterial Blood Gas Hematocrit 37.8 % (42-52); Base Excess ABG -0.7 mmol/L (-2.0-2.0); Blood Gas Allen Test Pos; Blood Gas Sample Site Radial, left; Blood Gas Sample Type Arterial; HCO3 ABG 21.3 mmol/L (22-26); Oxygen Device VENT; PO2 ABG 81.4 mmHg (80.0-100.0)
--- NOTE | 2021-04-12 04:15 | PC.NURSE ---
11 beat run vtach, few minutes later two five eat runs reported to Dr. Diaz t.jacque for 12.5 mg metoprolol
[2021-04-12] MEDS: metoprolol tartrate 25 mg Tablet 12.5 MG PO ×2 (04:33→05:42)
--- NOTE | 2021-04-12 04:56 | PC.NURSE ---
Dr. Diaz called and gave t.o. for 2nd dose of 12.5 mg metoprolol to equal 25 mg total if systolic above 100
[2021-04-12 05:21] LABS: Basophils % 0.4 %; Eosinophils % 0.3 %; Hematocrit 36.3 % (42.0-52.0); Hemoglobin 11.8 g/dL (11.7-16.6); Lymphocytes # 1.2 10^3/uL (0.8-4.8); Lymphocytes % 16.3 %; Mean Corpuscular HGB Conc 32.5 g/dL (30.0-36.0); Mean Corpuscular Hemoglobin 31.7 pg (28.0-34.0); Mean Corpuscular Volume 97.6 fl (80-94); Monocytes # 0.9 10^3/uL (0.2-0.9); Monocytes % 11.4 %; Neutrophils # 5.29 10^3/uL (1.8-7.7); Neutrophils % 71.2 %; Nucleated Red Blood Cells % 0 %; Platelet Count 141 10^3/cmm (130-400); Red Blood Count 3.72 10^6/uL (4.1-5.3); Red Cell Distribution Width 13.7 % (12.1-15.1); White Blood Count 7.4 10^3/uL (4.0-10.0)
[2021-04-12] MEDS: sodium chloride 0.9% 1,000 ML 100 ML IV (05:43)
[2021-04-12 05:46] LABS: Anion Gap 13.5 (5-19); Blood Urea Nitrogen 13 mg/dL (8-23); Calcium 8.4 mg/dL (8.5-10.5); Carbon Dioxide 19 mmol/L (22-29); Chloride 109 mmol/L (98-107); Chol HDL Ratio 3.84 mg/dL (1.0-5.00); Cholesterol 123 mg/dL (0-200); Glucose 106 mg/dL (65-115); HDL Cholesterol 32 mg/dL (60-100); LDL Cholesterol Calculated 66 mg/dL (50-129); LDL HDL Ratio 2.06 RATIO (0.00-3.22); Osmolality Calculated 287 mOsm/kg (285-295); Potassium 3.5 mmol/L (3.5-5.1); Sodium 138 mmol/L (136-145); Triglycerides 124 mg/dL (0-150)
[2021-04-12 05:53] LABS: Estmated Average Glucose 108; Hemoglobin A1C 5.4 % (4.0-6.0)
[2021-04-12 05:58] LABS: Slide Review Slide Review Perform
[2021-04-12 06:34] LABS: Magnesium 2.1 mg/dL (1.7-2.3)
[2021-04-12] MEDS: clopidogrel 75 mg Tablet PO (08:10)
[2021-04-12] MEDS: aspirin 81 mg EC Tablet PO (08:10)
[2021-04-12] MEDS: metoprolol tartrate 50 mg Tablet 25 MG PO ×2 (08:10→17:07)
--- NOTE | 2021-04-12 09:11 | ECG_ITS ---
[facility] Test Date: 2021-04-12 Pat Name: Jesus Saucedo Department: Room: ICU10 Gender: Male Baker Head: : 1935 Requested By: Ayaan Sen Order Number: [id number] Anders MD: Ayaan Sen M.D. Measurements Intervals [place] Rate: 49 P: ID: QRS: -45 QRSD: 142 T: 124 QT: 559 QTc: 505 Interpretive Statements ATRIAL FIBRILLATION RIGHT BUNDLE BRANCH BLOCK [120+ ms QRS DURATION, UPRIGHT V1, 40+ ms S IN I/aVL/V4/V5/V6] LEFT ANTERIOR FASCICULAR BLOCK [QRS AXIS <= -45, QR IN I, RS IN II] LEFT VENTRICULAR HYPERTROPHY AND ST-T CHANGE [VOLTAGE CRITERIA PLUS ST/T ABNORMALITY] PROLONGED QT INTERVAL CRITICAL TEST RESULT Compared to ECG 04/11/2021 19:14:24 Right bundle-branch block now present Left anterior fascicular block now present Prolonged QT interval now present Ventricular-paced complex(es) or rhythm no longer present Electronically Signed On 04-12-2021 21:35:45 CDT by Ayaan Sen M.D. [id number]
--- NOTE | 2021-04-12 09:33 | PC.NURSE ---
0700 Report received, assessment completed. No s/s of pain or SOB. Remains intubated and sedated. Gtts per orders. NS infusion stopped per orders. Some episodes of bradycardia noted into upper 40's. OGT in place. Sanderson cath in place, scant amount of blood noted around catheter. No active bleeding noted. Area cleaned and stat lock applied. Pt repositioned, sanderson and oral care performed. Will continue to monitor. 0915 Md at bedside, aware of bradycardic episodes. Weaning sedation down to attempt to wake pt to ascertain responsiveness per MD orders. Will monitor.
[2021-04-12] MEDS: FUROsemide 10 mg/mL SDV 2mL 20 MG IVP (10:56)
--- NOTE | 2021-04-12 11:16 | P.PN_ITS ---
Subjective Subjective: Interval history: Patient is doing much better today. He has been extubated. Mentating well. His blood pressure is still elevated. Has good urine output Vitals/I&O/Wt Last Vital Signs Temp 97.5 F L 04/11/21 16:41 Pulse 67 04/12/21 05:46 Resp 14 04/12/21 10:30 BP 126/73 04/11/21 19:10 Pulse Ox 96 04/12/21 10:30 04/11/21 04/12/21 04/12/21 22:59 06:59 14:59 Intake Total 1100 / 1100 599.225 / 599.225 Output Total 600 / 600 450 / 1050 Balance -600 / -600 650 / 50 599.225 / 599.225 Weight last 48 hrs Weight 215 lb Weight 217 lb Physical Exam Narrative: EXAM NARRATIVE: GENERAL: Patient is awake, alert and oriented x3 NECK: No jugular vein distension. [] HEENT: No cyanosis. No icterus. No pallor. [] HEART: Normal rate and rhythm, S1+S2, grade 2/6 systolic murmur LUNGS: Mild crackles ABDOMEN: Soft, nontender and nondistended. Positive bowel sounds. No guarding, rebound or tenderness. [] CENTRAL NERVOUS SYSTEM: Intubated and sedated EXTREMITIES: Lower extremities with 1+ edema bilaterally. Pulses palpable in the lower extremities, both dorsalis pedis and posterior tibial. [] Urinary Catheter Management^: Whitman: Cath Placed During This Visit: yes Reason for Continuing Indwelling Catheter: Accurate Measurement of Urinary Output in Critically Ill Patients Urinary Catheter Date of Insertion: 04/11/21 Urinary Catheter Time of Insertion: 22:12 Data : 04/13/21 05:05 04/13/21 05:05 A&P Assessment and plan (1) Ventricular tachycardia: Status: Acute (2) Coronary artery disease: Status: Acute Qualifiers: Coronary Disease-Associated Artery/Lesion type: [place] artery [place] vs. transplanted heart: [place] heart Associated angina: unspecified whether ang alen present Qualified Code(s): I25.10 - Atherosclerotic heart disease of [place] coronary artery without angina pectoris (3) Hypertension: Status: Acute (4) Congestive heart failure: Status: Acute Patient presented with acute onset chest pain and went into ventricular tachycardia/cardiac arrest in the ER, had cardioversion shocks x 3. Taken emergently to clinical lab technologist. Found to have severe thrombotic subtotal occlusion of ostial RCA and severe proximal LAD stenosis. Underwent successful revascularization with ALEXANDRA x4. Was extubated today. Oxygenating well on 3 L oxygen. Continue ICU stable. Aspirin and Plavix Continue metoprolol. Heart rates have improved since extubation. Echocardiogram pending. High intensity statin therapy. Monitor electrolytes and creatinine Hospitalist team on consult. Appreciate their recommendations. Attestations Medical Necessity Statement*: Care expected to cross 2 midnights. Patient had presented with ventricular tachycardia and cardiac arrest status post revascularization of RCA and LAD. Extubated today. Coding Level of Care Code Acute Curator [employer] for fifi Zelaya Diagnoses Ventricular tachycardia I47.2 Coronary artery disease I25.10 Coronary Disease-Associated Artery/Lesion type: [place] artery [place] vs. transplanted heart: [place] heart Associated angina: unspecified whether angina present Hypertension I10 Congestive heart failure I50.9
--- NOTE | 2021-04-12 11:42 | PC.NURSE ---
Sedation off, pt following some commands. On CPAP at this time. MD aware. Orders to extubate. RT notified.
--- NOTE | 2021-04-12 11:58 | PC.NURSE ---
Pt extubated to 4LNC per MD orders. Tolerated well. VSS. Follows all commands. Resting quietly in bed.
[2021-04-12 12:05] LABS: Add Urine Microscopic? YES; Bilirubin Urine Neg (Negative); Blood Urine 3+ (Negative); Glucose Urine UA Norm (Normal); Ketones Urine Negative (Negative); Leukocyte Esterase Urine Negative (Negative); Nitrate Urine Negative (Negative); Protein Urine Neg (Negative); Specific Gravity, Urine 1.005 (1.005-1.030); Urine Appearance Clear (CLEAR); Urine Color Straw (Yellow); Urobilinogen Urine Norm (Negative); pH Urine 6.5 (5-7)
[2021-04-12 12:07] LABS: Add Urine Culture? Yes; Bacteria Urine TRACE /hpf; RBC Urine 25-40 /hpf (0-2)
[2021-04-12 12:34] LABS: Troponin T (5th) Once 885 ng/L (0-15)
[2021-04-12] MEDS: metoprolol tartrate 25 mg Tablet PO (14:35)
--- NOTE | 2021-04-12 14:39 | PC.NURSE ---
Bedside swallow study done. Slight cough noted with water. Able to swallow small pill with a small amount of water without difficulty. Will monitor.
[2021-04-12 15:47] LABS: Anion Gap 11.1 (5-19); Blood Urea Nitrogen 11 mg/dL (8-23); Calcium 8.5 mg/dL (8.5-10.5); Carbon Dioxide 24 mmol/L (22-29); Chloride 110 mmol/L (98-107); Glucose 128 mg/dL (65-115); Magnesium 2.1 mg/dL (1.7-2.3); Osmolality Calculated 295 mOsm/kg (285-295); Potassium 3.1 mmol/L (3.5-5.1); Sodium 142 mmol/L (136-145)
--- NOTE | 2021-04-12 15:53 | P.PN_ITS ---
Subjective Subjective: Interval history: Seen multiple times during the day. Early in the morning patient was on sedation. Sedation was been given IV Lasix 20 mg and was later extubated around 12 to 3 L nasal cannula. Has remained hemodynamically stable and afebrile. Has an occasional VPCs. Vitals/I&O/Wt Last Vital Signs Temp 97.5 F L 04/11/21 16:41 Pulse 75 04/12/21 14:00 Resp 13 04/12/21 11:33 BP 126/73 04/11/21 19:10 Pulse Ox 98 04/12/21 11:33 04/12/21 04/12/21 04/12/21 06:59 14:59 22:59 Intake Total 1100 / 1100 601.183 / 601.183 Output Total 450 / 1050 Balance 650 / 50 601.183 / 601.183 Weight last 48 hrs Weight 97.522 kg Weight 98.43 kg Physical Exam Narrative: EXAM NARRATIVE: General: No acute distress, AO x3, drowsy HEENT: PERRLA, pupils bilaterally equal and reactive Chest: Normal vesicular breath sounds, no added sounds, equal good air entry bilaterally CVS: S1-S2 regular, no murmurs, no tachycardia, no gallops, no rubs Abdomen: Soft, nontender, no organomegaly, bowel sounds present Neuro: No focal deficits, no facial deformity, AO x3, power 5/5 in all limbs Urinary Catheter Management^: Whitman: Cath Placed During This Visit: yes Reason for Continuing Indwelling Catheter: Accurate Measurement of Urinary Output in Critically Ill Patients Urinary Catheter Date of Insertion: 04/11/21 Urinary Catheter Time of Insertion: 22:12 Data : 04/12/21 04:51 04/12/21 15:06 Micro: Microbiology 04/12/21 12:30 Gram Stain - Final Sputum - Endotracheal Tube Aspirate A&P Assessment and plan (1) Acute [place]: Status: Acute Qualifiers: Myocardial infarction type: non-ST elevation myocardial infarction Qualified Code(s): I21.4 - Non-ST elevation (NSTEMI) myocardial infarction (2) Coronary artery disease: Status: Acute Qualifiers: Coronary Disease-Associated Artery/Lesion type: [place] artery [place] vs. transplanted heart: [place] heart Associated angina: unspecified whether angina present Qualified Code(s): I25.10 - Atherosclerotic heart disease of [place] coronary artery without angina pectoris (3) Ventricular tachycardia: Status: Acute (4) Respiratory failure: Status: Acute Additional A&P Information CAD/acute MN: Treatment as per cardiology. Continue with Plavix, statin. Continue with home dose of Eliquis. Check HbA1c, lipid panel Check echocardiogram. Atrial fibrillation: Possible past medical history as well. Continue with low-dose beta-ashley and Eliquis. Keep potassium around 4, magnesium around 2. Respiratory failure: Intubated on arrival to the ER. ABG acceptable today morning. IV Lasix 20 mg. Wean off sedation. Plan for extubation later in the day. Sputum culture prior to extubation. Repeat BMP at 5. Thank you for involving us in the care of Mr. Saucedo. Please call with any questions. Attestations Medical Necessity Statement*: As per primary team. Time Spent in Patient Care: Greater than 35 minutes (>than 50% of time spent in counselling and/or direct pt care on unit) . Coding Level of Care Code Acute Ophthalmic Nurse for Lawson Zelaya Diagnoses Acute [place] I21.4 Myocardial infarction type: non-ST elevation myocardial infarction Coronary artery disease I25.10 Coronary Disease-Associated Artery/Lesion type: [place] artery [place] vs. transplanted heart: [place] heart Associated angina: unspecified whether angina present Ventricular tachycardia I47.2 Respiratory failure J96.90
[2021-04-12] MEDS: potassium chloride oral liq 20 mEq/15 mL UDC 80 MEQ PO (16:08)
[2021-04-12] MEDS: hyDRALAzine 20 mg/mL INJ 1 mL 10 MG IVP (17:28)
[2021-04-12] MEDS: amlodipine 5 mg Tablet PO (17:39)
--- NOTE | 2021-04-12 17:43 | PC.NURSE ---
Shift Note Frequent safety and comfort rounds continue. Orders and/or nursing care completed as indicated. Patient monitored for response to intervention and treatment(s). Education provided includes treatment plan and medication regimen. Pt and family verbalize understanding. Pt requires reminding, AAO to self only, reoriented as needed. PRN med givne for HTN, acquisition consultant aware. No other issues noted. Will continue to monitor.
--- NOTE | 2021-04-12 18:00 | PC.NURSE ---
wasted 50ml fentanyl and 57ml versed with Lesa GUIDRY.
--- NOTE | 2021-04-12 19:13 | USCV_ITS ---
Willis Saucedomie Age: 85 Gender: M : 1935 Exam Date: 04/12/2021 08:26 Ordering Phys: Ayaan Sen M.D ([email or web address]) Technologist: [place] [facility] [place]: Post cardiac arrest BP: 100 / 50 HR: 60 Rhythm: Sinus Technical Quality: Fair MEASUREMENTS (Male / Female) Normal Values 2D ECHO LV Diastolic Diameter PLAX 4.5 cm 4.2 - 5.9 / 3.9 - 5.3 cm LV Systolic Diameter PLAX 3.6 cm LV Chamber Size 4.9 cm IVS Diastolic Thickness 1.7 cm 0.6 - 1.0 / 0.6 - 0.9 cm IVS Systolic Thickness 2.1 cm LVPW Diastolic Thickness 1.1 cm 0.6 - 1.0 / 0.6 - 0.9 cm LVPW Systolic Thickness 0.9 cm RV Chamber Size 3.6 cm LVOT Diameter 1.9 cm LV Ejection Fraction 2D Teich 42.1 % LV Ejection Fraction MOD 2C 41.8 % LV Ejection Fraction 2C AL 46.3 % LA Diameter 3.7 cm LA Width 4.7 cm LA Height 7.1 cm RA Width 3.7 cm RA Height 7.0 cm Aorta at Sinotubular Diameter 2.8 cm M-MODE LV Diastolic Diameter MM 6.4 cm 4.2 - 5.9 / 3.9 - 5.3 cm LV Systolic Diameter MM 5.4 cm LV Ejection Fraction MM Teich 32.8 % IVS Diastolic Thickness MM 1.1 cm 0.6 - 1.0 / 0.6 - 0.9 cm IVS Systolic Thickness MM 1.3 cm LVPW Diastolic Thickness MM 1.4 cm 0.6 - 1.0 / 0.6 - 0.9 cm LVPW Systolic Thickness MM 1.4 cm RV Diastolic Diameter MM 0.8 cm Aortic Annulus Diameter 3.8 cm LA Ao Ratio MM 1.3 DOPPLER AV Peak Velocity 160.0 cm/s LVOT Peak Velocity 135.0 cm/s AV Area Cont Eq vti 2.8 cm squared AV Area Cont Eq pk 2.5 cm squared MV Area PHT 3.7 cm squared MV E' Velocity 52.0 cm/s Mitral E to MV E' Ratio 9.4 Mitral E to LV E' Lateral Ratio 8.4 Mitral E to LV E' Septal Ratio 10.6 TR Peak Velocity 217.0 cm/s TR Peak Gradient 18.8 mmHg TV Peak E Velocity 32.0 cm/s Right Atrial Pressure 15.0 mmHg Pulmonary Artery Systolic Pressu 33.8 mmHg PV Peak Velocity 81.0 cm/s RV Acceleration Time 0.1 s RV Ejection Time 0.2 s RV AcT/ET 0.3 FINDINGS Left Ventricle Normal left ventricular size. LV systolic function is mildly reduced with EF of 40-45%. Has mild global hypokinesis with moderate hypokinesis of the inferior wall. Diastolic function is indeterminate because of atrial fibrillation. Right Ventricle The right ventricle is normal in size and function. Right Atrium The right atrium is dilated Left Atrium The left atrium is severely dilated Mitral Valve Structurally normal mitral valve without significant stenosis or prolapse. There is mild mitral regurgitation. Aortic Valve Structurally normal aortic valve without significant sclerosis or stenosis. There is mild aortic regurgitation. Tricuspid Valve Structurally normal tricuspid valve without significant stenosis. Trace regurgitation. RVSP is 30-35mmHg consistent with mild pulmonary hypertension Pulmonic Valve Structurally normal pulmonic valve without significant stenosis. There is no pulmonic regurgitation. Pericardium Normal pericardium without effusion. Aorta Normal ascending aorta dimension. CONCLUSIONS LV systolic function is mildly reduced with EF of 40-45%. Above mentioned regional wall motion abnormalities Diastolic function is indeterminate because of atrial fibrillation. Biatrial enlargement Mild mitral regurgitation Mild aortic regurgitation Mild pulmonary hypertension Compared to prior echocardiogram from 07/2020, inferior wall is moderately hypokinetic now but overall LV systolic function is unchanged at 40-45% Ayaan Sen MD (Electronically Signed) Final Date: 13 April 2021 11:00 S
[2021-04-12] MEDS: apixaban 5 mg Tablet PO (19:55)
[2021-04-12] MEDS: atorvastatin 40 mg Tablet PO (19:55)
[2021-04-13] VITALS (27 sets, daily range): BP systolic 109–176; BP diastolic 66–119; PULSE 47–82; RESP 12–25; TEMP 36.6–36.9; O2SAT 92–98
[2021-04-13 05:25] LABS: Basophils % 0.2 %; Eosinophils # 0.1 10^3/uL (0.0-0.8); Eosinophils % 1.2 %; Hematocrit 34.8 % (42.0-52.0); Hemoglobin 11.1 g/dL (11.7-16.6); Lymphocytes # 1.9 10^3/uL (0.8-4.8); Lymphocytes % 22.5 %; Mean Corpuscular HGB Conc 31.9 g/dL (30.0-36.0); Mean Corpuscular Hemoglobin 31.4 pg (28.0-34.0); Mean Corpuscular Volume 98.6 fl (80-94); Mean Platelet Volume 10.7 fL (7.4-10.4); Monocytes # 0.9 10^3/uL (0.2-0.9); Monocytes % 10.6 %; Neutrophils # 5.56 10^3/uL (1.8-7.7); Neutrophils % 65.4 %; Nucleated Red Blood Cells % 0 %; Platelet Count 129 10^3/cmm (130-400); Red Blood Count 3.53 10^6/uL (4.1-5.3); Red Cell Distribution Width 14.2 % (12.1-15.1); White Blood Count 8.5 10^3/uL (4.0-10.0)
[2021-04-13 05:55] LABS: Blood Urea Nitrogen 9 mg/dL (8-23); Calcium 8.8 mg/dL (8.5-10.5); Carbon Dioxide 20 mmol/L (22-29); Chloride 112 mmol/L (98-107); Glucose 94 mg/dL (65-115); Osmolality Calculated 290 mOsm/kg (285-295); Sodium 141 mmol/L (136-145)
[2021-04-13 06:14] LABS: Anion Gap 12.6 (5-19); Potassium 3.6 mmol/L (3.5-5.1)
--- NOTE | 2021-04-13 07:21 | PC.NURSE ---
Report received, assessment completed. Pt AAOx4, makes all needs known. Pt coughed up some bloody sputum, will monitor. Whitman cath in place. VSS. Will monitor.
[2021-04-13] MEDS: potassium chloride oral liq 20 mEq/15 mL UDC 40 MEQ PO ×2 (08:06→18:38)
[2021-04-13] MEDS: metoprolol tartrate 50 mg Tablet 25 MG PO (08:07)
[2021-04-13] MEDS: clopidogrel 75 mg Tablet PO (08:07)
[2021-04-13] MEDS: apixaban 5 mg Tablet PO ×2 (08:07→20:23)
[2021-04-13] MEDS: losartan 50 mg Tablet PO (09:25)
--- NOTE | 2021-04-13 10:46 | PM.PN ---
Subjective Subjective: Interval history: Patient is doing much better today. Denies any chest pain. Has good urine output. Blood pressure is elevated. Vitals/I&O/Wt Last Vital Signs Temp 98.4 F 04/13/21 08:00 Pulse 74 04/13/21 08:00 Resp 16 04/13/21 08:00 BP 143/71 04/13/21 10:00 Pulse Ox 96 04/13/21 09:00 04/12/21 04/13/21 04/13/21 22:59 06:59 14:59 Intake Total 420 / 1021.183 450 / 450 Output Total 1725 / 1725 850 / 2575 Balance -1305 / -703.817 -850 / -1553.817 450 / 450 Weight last 48 hrs Weight 215 lb Weight 215 lb Weight 217 lb Physical Exam Narrative: EXAM NARRATIVE: GENERAL: Patient is awake, alert and oriented x3 NECK: No jugular vein distension. [] HEENT: No cyanosis. No icterus. No pallor. [] HEART: Normal rate and rhythm, S1+S2, grade 2/6 systolic murmur LUNGS: Mild crackles ABDOMEN: Soft, nontender and nondistended. Positive bowel sounds. No guarding, rebound or tenderness. [] CENTRAL NERVOUS SYSTEM: Intubated and sedated EXTREMITIES: Lower extremities with 1+ edema bilaterally. Pulses palpable in the lower extremities, both dorsalis pedis and posterior tibial. [] Urinary Catheter Management^: Whitman: Cath Placed During This Visit: yes Reason for Continuing Indwelling Catheter: Accurate Measurement of Urinary Output in Critically Ill Patients Urinary Catheter Date of Insertion: 04/11/21 Urinary Catheter Time of Insertion: 22:12 Data : 04/13/21 05:05 04/13/21 05:05 Micro: Microbiology 04/12/21 11:20 Urine Culture - Preliminary Urine,Clean Catch 04/12/21 12:30 Gram Stain - Final Sputum - Endotracheal Tube Aspirate A&P Assessment and plan (1) Ventricular tachycardia: Status: Acute (2) Coronary artery disease: Status: Acute Qualifiers: Coronary Disease-Associated Artery/Lesion type: [place] artery [place] vs. transplanted heart: [place] heart Associated angina: unspecified whether angina present Qualified Code(s): I25.10 - Atherosclerotic heart disease of [place] coronary artery without angina pectoris (3) Hypertension: Status: Acute (4) Congestive heart failure: Status: Acute Patient presented with acute onset chest pain and went into ventricular tachycardia/cardiac arrest in the ER, had cardioversion shocks x 3. Taken emergently to labeling associate. Found to have severe thrombotic subtotal occlusion of ostial RCA and severe proximal LAD stenosis. Underwent successful revascularization with ALEXANDRA x4. Was extubated today. Oxygenating well. Patient is stable to be transferred out of ICU Aspirin and Plavix We will uptitrate metoprolol to 50 mg twice daily. Start losartan 50 mg daily as blood pressure is elevated. Close monitoring of blood pressure. Echo performed yesterday shows mildly reduced LV systolic function of 40 to 45%. Moderate hypokinesis of inferior wall. High intensity statin therapy. Patient is diuresing well. His creatinine has improved to 0.7. Hospitalist team on consult. Appreciate their recommendations. Attestations Medical Necessity Statement*: Care expected to cross 2 midnights. Patient had presented with cardiac arrest and underwent successful revascularization of RCA and LAD. He was extubated yesterday. He is stable to be transferred out of ICU today. Coding Level of Care Code Acute Horticultural Services Supervisor for Lawson Zelaya Diagnoses Ventricular tachycardia I47.2 Coronary artery disease I25.10 Coronary Disease-Associated Artery/Lesion type: [place] artery [place] vs. transplanted heart: [place] heart Associated angina: unspecified whether angina present Hypertension I10 Congestive heart failure I50.9
--- NOTE | 2021-04-13 11:06 | XRR_ITS ---
PROCEDURE INFORMATION: Exam: XR Chest Exam date and time: 04/13/2021 11:06 AM Age: 85 years old Clinical indication: Shortness of breath; Additional info: SOB TECHNIQUE: Imaging protocol: XR of the chest. Views: 1 view. COMPARISON: CR (CHEST, ) 04/12/2021 6:03 AM FINDINGS: Lungs: Mild basilar atelectasis/scarring. No consolidation. Pleural spaces: Small effusions not excluded. No pneumothorax. Heart/Mediastinum: Cardiac silhouette mildly enlarged. Bones/joints: Unremarkable. XR/XR chest 1V portable [id number] IMPRESSION: 1. Mild basilar atelectasis/scarring. No consolidation. 2. Small pleural effusions not excluded. Radiation Dose CTDIVOL = (mGy): DLP = (mGy-cm)
[2021-04-13] MEDS: FUROsemide 10 mg/mL SDV 2mL 20 MG IVP (11:17)
--- NOTE | 2021-04-13 11:24 | PC.NURSE ---
Pt c/o increased SOB, notified . New orders for 20mg lasix IV, STAT CXR. Lung sounds unchanged from this AM, remains clear but coarse, diminished bilateral lower breath sounds. Orders processed. Lasix given, awaiting CXR.
--- NOTE | 2021-04-13 12:31 | P.PN_ITS ---
Subjective Subjective: Interval history: Patient doing much better. Extubated yesterday afternoon. Currently on 2 L saturating 92%. Heart rate better. Blood pressure elevated today. Being managed as per cardiology team. Had one episode of difficulty in breathing for which he required Lasix. Has remained hemodynamically stable and afebrile otherwise. Vitals/I&O/Wt Last Vital Signs Temp 98.4 F 04/13/21 08:00 Pulse 74 04/13/21 08:00 Resp 16 04/13/21 08:00 BP 143/71 04/13/21 10:00 Pulse Ox 96 04/13/21 09:00 04/12/21 04/13/21 04/13/21 22:59 06:59 14:59 Intake Total 420 / 1021.183 450 / 450 Output Total 1725 / 1725 850 / 2575 Balance -1305 / -703.817 -850 / -1553.817 450 / 450 Weight last 48 hrs Weight 97.522 kg Weight 97.522 kg Weight 98.43 kg Physical Exam Narrative: EXAM NARRATIVE: General: No acute distress, AO x3, drowsy HEENT: PERRLA, pupils bilaterally equal and reactive Chest: Normal vesicular breath sounds, no added sounds, equal good air entry bilaterally CVS: S1-S2 regular, no murmurs, no tachycardia, no gallops, no rubs Abdomen: Soft, nontender, no organomegaly, bowel sounds present Neuro: No focal deficits, no facial deformity, AO x3, power 5/5 in all limbs Urinary Catheter Management^: Whitman: Cath Placed During This Visit: yes Reason for Continuing Indwelling Catheter: Accurate Measurement of Urinary Output in Critically Ill Patients Urinary Catheter Date of Insertion: 04/11/21 Urinary Catheter Time of Insertion: 22:12 Data : 04/13/21 05:05 04/13/21 05:05 Micro: Microbiology 04/12/21 11:20 Urine Culture - Preliminary Urine,Clean Catch 04/12/21 12:30 Gram Stain - Final Sputum - Endotracheal Tube Aspirate A&P Assessment and plan (1) Acute PR: Status: Acute Qualifiers: Myocardial infarction type: non-ST elevation myocardial infarction Qualified Code(s): I21.4 - Non-ST elevation (NSTEMI) myocardial infarction (2) Coronary artery disease: Status: Acute Qualifiers: Coronary Disease-Associated Artery/Lesion type: [place] artery [place] vs. transplanted heart: [place] heart Associated angina: unspecified whether angina present Qualified Code(s): I25.10 - Atherosclerotic heart disease of [place] coronary artery without angina pectoris (3) Ventricular tachycardia: Status: Acute (4) Respiratory failure: Status: Resolved Additional A&P Information CAD/acute PR: Treatment as per cardiology. Continue with Plavix, statin. Continue with home dose of Eliquis. Lipid panel, A1c results appreciated. Echocardiogram shows an EF of 40 to 45% with moderate hypokinesis of the inferior wall and mild global LV hypokinesia, mild MR. Atrial fibrillation: Possible past medical history as well. Continue with low-dose beta-ashley and Eliquis. Keep potassium around 4, magnesium around 2. Respiratory failure: Extubated on April 12. Check proBNP. Chest x-ray. IV Lasix 20 mg. Monitor strict input output charting. Can transfer to CSU if okay with cardiology. Thank you for involving us in the care of Mr. Saucedo. Please call with any questions. Attestations Medical Necessity Statement*: As per primary team. Time Spent in Patient Care: Greater than 35 minutes (>than 50% of time spent in counselling and/or direct pt care on unit) . Coding Level of Care Code Acute Night Warehouse Selector for Lawson Zelaya Diagnoses Acute [place] I21.4 Myocardial infarction type: non-ST elevation myocardial infarction Coronary artery disease I25.10 Coronary Disease-Associated Artery/Lesion type: [place] artery [place] vs. transplanted heart: [place] heart Associated angina: unspecified whether angina present Ventricular tachycardia I47.2 Respiratory failure J96.90
[2021-04-13 14:02] LABS: NT Pro B Type Natriuretic Pept 3731 pg/mL (0-450)
[2021-04-13] MEDS: metoprolol tartrate 50 mg Tablet PO (17:13)
[2021-04-13 17:40] LABS: Magnesium 1.8 mg/dL (1.7-2.3); Potassium 3.4 mmol/L (3.5-5.1)
--- NOTE | 2021-04-13 18:06 | PC.NURSE ---
Shift Note Frequent safety and comfort rounds continue. Orders and/or nursing care completed as indicated. Patient monitored for response to intervention and treatment(s). Education provided includes treatment plan and medication regimen. Patient and/or financial services sales representative verbalizes understanding but needs frequent reminding. Pt verbalizes that he is ready to go home often. Reminded that he will need to be in hospital for a few days. VSS. Potassium and magnesium redrawn due to extensive diuresis today. Labs reported to MD, awaiting orders. Pt has been up to chair 3 times today, ambulates with assist x 1 for standby. No c/o CP or any other issues. Will continue to monitor.
[2021-04-13] MEDS: atorvastatin 40 mg Tablet PO (20:23)
[2021-04-14] VITALS (19 sets, daily range): BP systolic 127–175; BP diastolic 65–116; PULSE 49–73; RESP 15–35; TEMP 36.5–37.3; O2SAT 89–99
[2021-04-14 04:36] LABS: Basophils % 0.5 %; Eosinophils # 0.3 10^3/uL (0.0-0.8); Eosinophils % 3.1 %; Hematocrit 37.8 % (42.0-52.0); Hemoglobin 12.1 g/dL (11.7-16.6); Lymphocytes # 2.3 10^3/uL (0.8-4.8); Lymphocytes % 26.4 %; Mean Corpuscular Hemoglobin 30.8 pg (28.0-34.0); Mean Corpuscular Volume 96.2 fl (80-94); Mean Platelet Volume 10.7 fL (7.4-10.4); Monocytes # 0.8 10^3/uL (0.2-0.9); Monocytes % 9.4 %; Neutrophils # 5.29 10^3/uL (1.8-7.7); Neutrophils % 60.4 %; Nucleated Red Blood Cells % 0 %; Platelet Count 156 10^3/cmm (130-400); Red Blood Count 3.93 10^6/uL (4.1-5.3); Red Cell Distribution Width 13.6 % (12.1-15.1); White Blood Count 8.8 10^3/uL (4.0-10.0)
[2021-04-14 05:04] LABS: Blood Urea Nitrogen 8 mg/dL (8-23); Calcium 9.1 mg/dL (8.5-10.5); Carbon Dioxide 22 mmol/L (22-29); Chloride 110 mmol/L (98-107); Glucose 101 mg/dL (65-115); Osmolality Calculated 288 mOsm/kg (285-295); Sodium 140 mmol/L (136-145)
--- NOTE | 2021-04-14 08:00 | PM.PN ---
Subjective Subjective: Interval history: Patient is overall doing well. His blood pressure is still elevated. Denies any chest pain or shortness of breath. Has been in negative fluid balance. Vitals/I&O/Wt Last Vital Signs Temp 99.0 F 04/14/21 07:00 Pulse 66 04/14/21 07:00 Resp 25 H 04/14/21 07:00 BP 135/74 04/14/21 07:00 Pulse Ox 95 04/14/21 07:00 04/13/21 04/14/21 04/14/21 22:59 06:59 14:59 Intake Total 772 / 1462 Output Total 450 / 2450 500 / 2950 Balance 322 / -988 -500 / -1488 Weight last 48 hrs Weight 210 lb Weight 215 lb Physical Exam Narrative: EXAM NARRATIVE: GENERAL: Patient is awake, alert and oriented x3 NECK: No jugular vein distension. [] HEENT: No cyanosis. No icterus. No pallor. [] HEART: Normal rate and rhythm, S1+S2, grade 2/6 systolic murmur LUNGS: Mild crackles ABDOMEN: Soft, nontender and nondistended. Positive bowel sounds. No guarding, rebound or tenderness. [] CENTRAL NERVOUS SYSTEM: Intubated and sedated EXTREMITIES: Lower extremities with 1+ edema bilaterally. Pulses palpable in the lower extremities, both dorsalis pedis and posterior tibial. [] Urinary Catheter Management^: Whitman: Cath Placed During This Visit: yes Reason for Continuing Indwelling Catheter: Accurate Measurement of Urinary Output in Critically Ill Patients Urinary Catheter Date of Insertion: 04/11/21 Urinary Catheter Time of Insertion: 22:12 Data : 04/14/21 04:14 04/14/21 04:14 Micro: Microbiology 04/12/21 12:30 Gram Stain - Final Sputum - Endotracheal Tube Aspirate Sputum Culture - Preliminary Gram Negative Rods 04/12/21 11:20 Urine Culture - Preliminary Urine,Clean Catch A&P Assessment and plan (1) Ventricular tachycardia: Status: Acute (2) Coronary artery disease: Status: Acute Qualifiers: Coronary Disease-Associated Artery/Lesion type: [place] artery [place] vs. transplanted heart: [place] heart Associated angina: unspecified whether angina present Qualified Code(s): I25.10 - Atherosclerotic heart disease of [place] coronary artery without angina pectoris (3) Hypertension: Status: Acute (4) Congestive heart failure: Status: Acute Patient presented with acute onset chest pain and went into ventricular tachycardia/cardiac arrest in the ER, had cardioversion shocks x 3. Taken emergently to custodial laborer. Found to have severe thrombotic subtotal occlusion of ostial RCA and severe proximal LAD stenosis. Underwent successful revascularization with ALEXANDRA x4. Was extubated on Wednesday. Oxygenating well. He has been started on lasix 20mg BID Aspirin and Plavix We will uptitrate losartan to 100mg daily. Will add amlodipine 5mg daily Echo performed yesterday shows mildly reduced LV systolic function of 40 to 45%. Moderate hypokinesis of inferior wall. High intensity statin therapy. Patient is stable to be transferred out of the ICU Hospitalist team on consult. Appreciate their recommendations. Attestations Medical Necessity Statement*: Care expected to cross 2 midnights. Patient presented with cardiac arrest and underwent successful revascularization of the LAD and RCA. Currently requiring diuresis. Coding Level of Care Code Acute Software Database Architect for Lawson Zelaya Diagnoses Ventricular tachycardia I47.2 Coronary artery disease I25.10 Coronary Disease-Associated Artery/Lesion type: [place] artery [place] vs. transplanted heart: [place] heart Associated angina: unspecified whether angina present Hypertension I10 Congestive heart failure I50.9
[2021-04-14] MEDS: FUROsemide 20 mg Tablet PO ×2 (08:06→17:56)
[2021-04-14] MEDS: losartan 50 mg Tablet PO (08:06)
[2021-04-14] MEDS: clopidogrel 75 mg Tablet PO (08:06)
[2021-04-14] MEDS: apixaban 5 mg Tablet PO ×2 (08:06→20:13)
[2021-04-14] MEDS: metoprolol tartrate 50 mg Tablet PO (08:07)
--- NOTE | 2021-04-14 09:20 | PC.NURSE ---
Pt sitting up in chair in room for breakfast. AAOx4, makes all needs known, CLWR. VSS, bradycardic at times, occasional PVC's. No c/o SOB or CP. Urine draining freely to BSD, will monitor.
[2021-04-14] MEDS: losartan 50 mg Tablet 100 MG PO (09:28)
[2021-04-14] MEDS: amlodipine 5 mg Tablet PO (09:28)
--- NOTE | 2021-04-14 09:44 | PC.CHAP ---
Pastoral Care Encounter/Spiritual Assessment Type of Contact [] Declined seo executive visit [] Patient/Family/Request visit [] Outpatient visit [] Follow-up visit [] Physician referral [] Code/Alert [x] Routine visit [] Staff referral [] Actively dying [] Patient sleeping [] Family support [] [] Out of room [] Palliative care [] [] Receiving care in room [] Pre-surgical visit [] Trauma [] Long length of stay [x] ICU visit [] Other: Relational/Emotional Strength [] Patient feels connected with others/family/visitors/staff [] Distress [] Loneliness/isolation [] Abandonment Spirituality of Patient [] Person of Shy [] Attends Islam of their Shy [] Believes in Prayer [] Reads Bible or Church materials [] There are Spiritual issues to be addressed Yard Labor Supervisor Interventions [x] Prayer [] Active listening [] Non-anxious presence [] Spiritual/emotional support [] Crisis/trauma care [] Spiritual counseling [] Bereavement support [] Provided bereavement packet [] Provided Bible/devotional materials [] Provided toy/stuffed animal, coloring book to patient or family member [] Provided Communion [] Anointing/[place] [] Salvation [x] Completed spiritual assessment [] Other: Impact on Illness or Injury [] Angry [] Fearful [] Anxious [] Often cries [] Exhaustion [] Unable to work [] Unable to attend tenriism [] Unable to walk/stand [] Unable to read [] Unable to drive [] Unable to eat/drink [] Unable to sleep [] Unable to be with family [] Patient intubated [] Other: Summary patient setting in chair having breakfast... prayed for total healing Time spent with patient 5 min
--- NOTE | 2021-04-14 10:08 | PC.NURSE ---
Pt had 8 beat run of vtach. notified. VO given to remove catheter.
--- NOTE | 2021-04-14 11:23 | PC.NURSE ---
Catheter removed, tolerated well. Pt educated to use urinal and to notify staff if need to empty urinal. Episodes of bradycardia into low 40's. aware of bradycardic episodes.
--- NOTE | 2021-04-14 11:57 | PC.NURSE ---
Urine noted to be light red in color with a small clot noted in urinal.
--- NOTE | 2021-04-14 13:01 | PC.SOCIAL ---
IMM Update: pg 2 of IMM updated and reviewed w/ patient. Copy provided.
--- NOTE | 2021-04-14 13:21 | PC.NURSE ---
1245 Report given to Luis Eduardo GUIDRY
--- NOTE | 2021-04-14 13:45 | PC.NURSE ---
PT transferred to room 101. Tolerated well, hooked to CSU monitor. CSU nurse, Luis Eduardo at bedside.
--- NOTE | 2021-04-14 15:31 | PM.PN ---
Subjective Subjective: Interval history: Patient was seen and examined this morning, no acute events overnight.overall he is doing.H/R slightly on lower side.Metoprolol.T dose has been reduced to 25 mg po BID. His other vitals and labs have been reviewed. Medications: Reviewed: Yes Vitals/I&O/Wt Last Vital Signs Temp 97.7 F 04/14/21 11:00 Pulse 49 L 04/14/21 11:00 Resp 20 H 04/14/21 11:00 BP 152/75 04/14/21 11:00 Pulse Ox 96 04/14/21 11:00 04/14/21 04/14/21 04/14/21 06:59 14:59 22:59 Intake Total 600 / 600 Output Total 500 / 2950 725 / 725 Balance -500 / -1488 -125 / -125 Weight last 48 hrs Weight 95.254 kg Weight 97.522 kg Physical Exam Const: COMMON NORMALS: patient oriented x3 HENMT: COMMON NORMALS: normocephalic and atraumatic HEAD & SCALP: normocephalic and atraumatic Resp: OTHER: Minimal basal crackles at lung bases Cardio: COMMON NORMALS: regular rate, regular rhythm, S1 normal heart sound present, S2 normal heart sound present, No gallops present (Cardio), No murmurs present (Cardio), No rub (Cardio) and Peripheral pulses 2+ throughout RATE: regular rate RHYTHM: regular rhythm HEART SOUNDS: S1 normal heart sound present and S2 normal heart sound present PERIPHERAL PULSES: Peripheral pulses 2+ throughout GI: COMMON NORMALS: Normal to inspection, nondistended, normoactive bowel sounds present, Soft to palpation, non-tender, No hepatosplenomegaly present and no masses AUSCULTATION: Yes normoactive bowel sounds PALPATION: Yes Soft to palpation and Yes No hepatosplenomegaly present RECTAL EXAM: Yes deferred Extremity: COMMON NORMALS: no clubbing, cyanosis or edema and no pedal edema Neuro: COMMON NORMALS: patient oriented x3 Urinary Catheter Management^: Whitman: Cath Placed During This Visit: yes, but has since been removed by the nurse Reason for Continuing Indwelling Catheter: Decision to DC Catheter Urinary Catheter Date of Insertion: 04/11/21 Urinary Catheter Time of Insertion: 22:12 Date Urinary Catheter Removed: 04/14/21 Time Urinary Catheter Discontinued: 11:08 Data : 04/14/21 04:14 04/14/21 04:14 Micro: Microbiology 04/12/21 12:30 Gram Stain - Final Sputum - Endotracheal Tube Aspirate Sputum Culture - Final Klebsiella pneumoniae 04/12/21 11:20 Urine Culture - Final Urine,Clean Catch A&P Assessment and plan (1) Acute [place]: Status: Acute Qualifiers: Myocardial infarction type: non-ST elevation myocardial infarction Qualified Code(s): I21.4 - Non-ST elevation (NSTEMI) myocardial infarction (2) Coronary artery disease: Status: Acute Qualifiers: Associated angina: unspecified whether angina present Coronary Disease-Associated Artery/Lesion type: [place] artery [place] vs. transplanted heart: [place] heart Qualified Code(s): I25.10 - Atherosclerotic heart disease of [place] coronary artery without angina pectoris (3) Ventricular tachycardia: Status: Acute (4) Respiratory failure: Status: Resolved Additional A&P Information CAD/acute WA: Treatment as per cardiology. Continue with Plavix, statin. Continue with home dose of Eliquis. Lipid panel, A1c results appreciated. Echocardiogram shows an EF of 40 to 45% with moderate hypokinesis of the inferior wall and mild global LV hypokinesia, mild MR. Atrial fibrillation: Currently rate Controlled.H/r has dropped to as low as 49. Continue with low-dose beta-ashley and Eliquis. Keep potassium around 4, magnesium around 2. Respiratory failure:S/P Extubation. Currently saturating well on 2ls Continue Lasix 20 mg po BID Monitor strict input output charting. Medicine will sign off now call us with question Attestations Medical Necessity Statement*: per primary team Coding Level of Care Code Acute Phlebotomy Coordinator for [facility] Fwd Exam Detailed Diagnoses Acute [place] I21.4 Myocardial infarction type: non-ST elevation myocardial infarction Coronary artery disease I25.10 Associated angina: unspecified whether angina present Coronary Disease-Associated Artery/Lesion type: [place] artery [place] vs. transplanted heart: [place] heart Ventricular tachycardia I47.2 Respiratory failure J96.90
[2021-04-14] MEDS: metoprolol tartrate 25 mg Tablet PO (20:13)
[2021-04-14] MEDS: atorvastatin 40 mg Tablet PO (20:13)
[2021-04-15 03:00] VITALS: BP 111/51; PULSE 62; RESP 18; O2SAT 96
[2021-04-15] MEDS: temazepam 15 mg Capsule PO (03:09)
[2021-04-15 05:20] VITALS: PULSE 71
[2021-04-15 08:11] VITALS: BP 175/95
[2021-04-15] MEDS: metoprolol tartrate 25 mg Tablet PO (08:11)
[2021-04-15] MEDS: FUROsemide 20 mg Tablet PO (08:11)
[2021-04-15] MEDS: apixaban 5 mg Tablet PO (08:11)
[2021-04-15] MEDS: amlodipine 5 mg Tablet PO (08:11)
[2021-04-15] MEDS: clopidogrel 75 mg Tablet PO (08:11)
[2021-04-15] MEDS: losartan 50 mg Tablet 100 MG PO (08:11)
[2021-04-15 08:54] VITALS: BP 175/95; PULSE 76; RESP 18; TEMP 37.1; O2SAT 98
--- NOTE | 2021-04-15 09:42 | PM.DCS ---
Discharge Providers Date of Admission: 04/11/21 18:44 Date of Discharge: April 15, 2021 Attending Provider at Admission: Ayaan Sen M.D Attending Provider at Discharge: Ayaan Sen M.D Primary Care Provider: Gene Peralta Diagnoses at Discharge Discharge Diagnosis (1) Acute CT: Qualifiers: Myocardial infarction type: non-ST elevation myocardial infarction Qualified Code(s): I21.4 - Non-ST elevation (NSTEMI) myocardial infarction (2) Coronary artery disease: Qualifiers: Associated angina: unspecified whether angina present Coronary Disease-Associated Artery/Lesion type: [place] artery [place] vs. transplanted heart: [place] heart Qualified Code(s): I25.10 - Atherosclerotic heart disease of [place] coronary artery without angina pectoris (3) Ventricular tachycardia: (4) Respiratory failure: Status: Resolved (5) Sustained VT (ventricular tachycardia): Status: Acute (6) Cardiac arrest: Status: Acute (7) Cardiomyopathy: Status: Acute (8) Atrial fibrillation: Status: Acute Reason for Visit Reason for Visit: NSTEMI/ Cardiac arrest Hospital Course Hospital Course 85 year old male with PMH of Coronary artery disease, atrial fibrillation and hypertension patient presented with chest pain and dizziness. According to his daughter, he was driving with her when complained of sudden onset dizziness, severe chest pain and shortness of breath. She switched places with him and drove him to the ER. In the ER he was found to be in Ventricular tachycardia and shocks x 3. He was also intubated. Per ER physician, he was mentating well even after the shock. Intubated and sedated. Post arrest EKG shows diffuse ST depressions. oil laboratory analyst was activated and patient taken emergently to the component lab tech. Coronary angiogram of the also had a thrombotic 99% occlusion of ostial RCA and severe proximal LAD stenosis. He underwent successful revascularization of both vessels. He was successfully extubated. He went back into A. fib with normal heart rate. No more VT episodes however had PVCs on telemetry. His heart rate has been staying low. Metoprolol dose could not be increased secondary to bradycardia. He stayed stable and plan for discharge on Eliquis and Plavix. He will be scheduled for outpatient cardiology follow up. Physical Exam Narrative: EXAM NARRATIVE: Patient is awake, alert and oriented x3 NECK: No jugular vein distension. [] HEENT: No cyanosis. No icterus. No pallor. [] HEART: Normal rate and rhythm, S1+S2, grade 2/6 systolic murmur LUNGS: Mild crackles ABDOMEN: Soft, nontender and nondistended. Positive bowel sounds. No guarding, rebound or tenderness. [] CENTRAL NERVOUS SYSTEM: Intubated and sedated EXTREMITIES: Lower extremities with 1+ edema bilaterally. Pulses palpable in the lower extremities, both dorsalis pedis and posterior tibial. [] Urinary Catheter Management^: Whitman: Cath Placed During This Visit: yes, but has since been removed by the nurse Reason for Continuing Indwelling Catheter: Decision to DC Catheter Urinary Catheter Date of Insertion: 04/11/21 Urinary Catheter Time of Insertion: 22:12 Date Urinary Catheter Removed: 04/14/21 Time Urinary Catheter Discontinued: 11:08 Discharge Data Data Completed and Pending: Completed Studies During Hospitalization Category Date Time Status XR chest 1V mary ble [id number] AM LABS Exams 04/12/21 04:00 Completed XR chest 1V mary ble [id number] Stat Exams 04/13/21 11:06 Completed XR chest 1V mary ble [id number] Urgent Exams 04/11/21 Completed CV. 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 Stat Exams 04/11/21 16:24 Taken Vitals: Last Vital Signs Temp 98.7 F 04/15/21 08:54 Pulse 76 04/15/21 08:54 Resp 18 04/15/21 08:54 BP 175/95 04/15/21 08:54 Pulse Ox 98 04/15/21 08:54 Discharge Plan Discharge Patient Disposition: Home Condition: Stable Prescriptions: New amlodipine 5 mg Tablet 5 mg PO DAILY Qty: 90 RF: 3 Eliquis 5 mg Tablet 5 mg PO BID@0900,2100 Qty: 90 RF: 3 clopidogrel 75 mg Tablet 75 mg PO DAILY Qty: 90 RF: 3 Continued isosorbide mononitrate 30 mg tablet extended release 24 hr 30 mg PO DAILY RF: 0 potassium chloride 20 mEq tablet,ER particles/crystals 20 meq PO BID RF: 0 nitroglycerin 0.4 mg tablet, sublingual 0.4 mg sublingual Q5MIN PRN (Reason: Chest Pain) RF: 0 ezetimibe 10 mg tablet 10 mg PO DAILY RF: 0 rosuvastatin 40 mg tablet 40 mg PO DAILY RF: 0 Discontinued furosemide 40 mg tablet 40 mg PO BID RF: 0 carvedilol 12.5 mg tablet 12.5 mg PO BID RF: 0 losartan 25 mg tablet 25 mg PO DAILY RF: 0 Eliquis 2.5 mg tablet 2.5 mg PO BID RF: 0 No Action metoprolol tartrate 25 mg tablet 12.5 mg PO BID RF: 0 losartan 100 mg tablet 150 mg PO DAILY Qty: 240 RF: 3 furosemide 40 mg tablet 40 mg PO DAILY Qty: 90 RF: 3 Centrum Silver 400-250 mcg Tablet,Chewable 1 tab PO DAILY RF: 0 Discharge Orders: Discharge Order (Routine); Ordered 04/15/21 Ordered By: Ayaan Sen Referrals: Ayaan Sen M.D [Physician] - 1 month (Please follow-up with Dr. Sen on on at 3:00P.M. If you have any questions or need to reschedule. Please call ) Nancy Jorgensen FNP [Nurse Practitioner] - 7-10 days (Please follow-up Nancy Jorgensen on at 10:15A.M. If you have any questions or need to reschedule. Please call ) Discharge Diet: Cardiac Discharge Activity: Increase activity as tolerated Patient Instructions: Metoprolol (By mouth), Amlodipine (By mouth), Losartan (By mouth) (Cozaar), Clopidogrel (By mouth) (Plavix), Apixaban (By mouth) (Eliquis), Coronary Angioplasty (DC), Hypertension (DC), CHF Stoplight, Opioid Safety, Post Angiogram Home Care Instructions Discharge Attestations Time Spent in Discharge Care*: greater than 30 min Quality Metrics Clinical Quality Measures During this hospital stay, did patient experience: AMI Clinical Trial Participant: No Contraindication to aspirin (AMI): Aspirin given Contraindication to statin: Statin prescribed Coding Level of Care Code Acute Chg FW DC note Diagnoses Acute CT I21.4 Myocardial infarction type: non-ST elevation myocardial infarction Coronary artery disease I25.10 Associated angina: unspecified whether angina present Coronary Disease-Associated Artery/Lesion type: [place] artery [place] vs. transplanted heart: [place] heart Ventricular tachycardia I47.2 Respiratory failure J96.90 Sustained VT (ventricular tachycardia) I47.2 Cardiac arrest I46.9 Cardiomyopathy I42.9 Atrial fibrillation I48.91
[2021-04-15 10:51] VITALS: BP 175/95; PULSE 76; RESP 18; TEMP 37.1; O2SAT 98
--- NOTE | 2021-04-15 11:45 | PC.NURSE ---
Pt education provided, no questions or concerns and family present to help interpret. Pt VS stable upon departure. Left via w/c with family.
--- NOTE | 2021-04-16 15:33 | PC.SOCIAL ---
discharge follow up call made, spoke with patient and patients daughter. patient denies chest pain or shortness of breath. reports incision looks good, free from redness of swelling. spoke with pts daughter and she is helping with medications. patient is taking medication as prescribed. picked up all new meds from the pharmacy. they are aware of lasix being changed. patient has follow up appointments with hung treadwell and dr. harvey and the daughter is aware of dates and times.
== END 2021-04-15 11:45 | disposition home or self-care (01) | DRG 246 ==
LOC: ER 16:36 → CCL 17:14 → ICU 18:45 → CSU 04-14 13:30
PROVIDERS: Student in an Organized Health Care Education/Training Program; Admitting Provider Internal Medicine; Emergency Provider Family Medicine; PCP Family Medicine; Visit Provider Internal Medicine
PROC: 027137Z Dilation of Coronary Artery, Two Arteries with Four or More Drug-eluting Intraluminal Devices, Percutaneous Approach (ICD-10-PCS; principal; 2021-04-11 16:45)
PROC: 027137Z Dilation of Coronary Artery, Two Arteries with Four or More Drug-eluting Intraluminal Devices, Percutaneous Approach (ICD-10-PCS; 2021-04-11 16:45)
DX: I21.4 Non-ST elevation (NSTEMI) myocardial infarction (principal); I46.2 Cardiac arrest due to underlying cardiac condition; J96.00 Acute respiratory failure, unspecified whether with hypoxia or hypercapnia; I47.2 Ventricular tachycardia; I25.10 Atherosclerotic heart disease of native coronary artery without angina pectoris; I11.0 Hypertensive heart disease with heart failure; I50.9 Heart failure, unspecified; I25.2 Old myocardial infarction; I48.91 Unspecified atrial fibrillation
CPT/HCPCS: 31500; 36415; 36416; 36600; 51702; 71045; 80048; 80051; 80061; 81001; 82330; 82803; 82805; 82962; 83036; 83735; 83880; 84132; 84484; 85025; 85347; 85610; 85730; 87070; 87077; 87086; 87186; 87205; 93005; 93306; 93454; 94002; 94003; 94799; 96365; 96375; 97110; 97161; 97165; 99291; A4570; C1725; C1760; C1769; C1874; C1887; C1894; C9600; C9601; J0360; J1644; J1940; J2250; J3010; J3246; J3475; J3480; J3490; J7030; Q9967

== ENCOUNTER → 2021-04-21 10:08 | Outpatient (BNVA) | payer MEDICARE, OTHER, SELFPAY | PROVIDERS: PCP Family Medicine; Visit Provider Nurse Practitioner Family | DX: I10 Essential (primary) hypertension (principal); I21.4 Non-ST elevation (NSTEMI) myocardial infarction; I50.9 Heart failure, unspecified; Z09 Encounter for follow-up examination after completed treatment for conditions other than malignant neoplasm; I25.10 Atherosclerotic heart disease of native coronary artery without angina pectoris | CPT/HCPCS: 80048 ==

== ENCOUNTER 2021-04-25 10:33 | Inpatient (IN) | payer MEDICARE, OTHER, SELFPAY ==
[2021-04-25] VITALS (47 sets, daily range): BP systolic 86–146; BP diastolic 50–86; PULSE 61–250; RESP 13–32; TEMP 35.7–36.7; O2SAT 70–100; BMI 24.7
[2021-04-25] MEDS: amiodarone 50 mg/mL SDV 3 mL 150 MG IVP (10:40)
[2021-04-25] MEDS: amiodarone 50 mg/mL SDV 3 mL 300 MG IVP (10:46)
[2021-04-25] MEDS: EPINEPHrine 0.1 mg/mL SYR 10 mL 1 MG IVP ×2 (10:46→10:49)
[2021-04-25] MEDS: sodium bicarbonate 8.4% 1 mEq/mL 50mL Syr 50 MEQ IVP (10:47)
[2021-04-25] MEDS: atropine 0.1 mg/mL Syr 10 mL 1 MG IVP (10:50)
--- NOTE | 2021-04-25 10:52 | ECG_ITS ---
[facility] Test Date: 2021-04-25 Pat Name: Jesus Saucedo Department: Room: ICU02 Gender: Male Sat Tutor: : 1935 Requested By: Zach Singer Order Number: [id number] Reading MD: Ayaan Sen M.D. Measurements Intervals [place] Rate: 105 P: CO: QRS: 59 QRSD: 131 T: 18 QT: 395 QTc: 523 Interpretive Statements ATRIAL FIBRILLATION WITH RAPID VENTRICULAR RESPONSE INTRAVENTRICULAR CONDUCTION DELAY [130+ ms QRS DURATION] POSSIBLE INFERIOR MYOCARDIAL INFARCTION , PROBABLY OLD [30 ms Q WAVE IN II/aVF] Compared to ECG 04/12/2021 10:24:49 Intraventricular conduction delay now present Myocardial infarct finding now present Right bundle-branch block no longer present Left anterior fascicular block no longer present Left ventricular hypertrophy no longer present ST (T wave) deviation no longer present Prolonged QT interval no longer present Electronically Signed On 04-25-2021 22:42:34 CDT by Ayaan Sen M.D. [email or web address]
--- NOTE | 2021-04-25 10:52 | XR_ITS ---
WS: [id number] Portable AP upright chest, 04/25/2021 Clinical Data: chest pain; intubated Comparison: Portable chest, 04/13/2021. Findings: Endotracheal tube is above the robin. There is left basilar atelectasis and/or small conso lidation. The right lung is clear. No nodules or masses are seen. The heart is slightly enlarged. The aortic arch shows calcification and tortuosity. Monitor leads are on the chest wall. XR/XR chest 1V portable [id number] Impression: 1. Endotracheal tube above the robin. 2. Cardiomegaly. 3. Possible consolidation and/or atelectasis at the left lung base.
[2021-04-25] MEDS: midazolam 1 mg/mL INJ 2 mL 0.5 MG IVP ×2 (11:00→11:25)
[2021-04-25 11:03] LABS: Basophils # 0.1 10^3/uL (0.0-0.1); Basophils % 0.7 %; Eosinophils # 0.6 10^3/uL (0.0-0.8); Eosinophils % 6.5 %; Lymphocytes # 4.4 10^3/uL (0.8-4.8); Lymphocytes % 51.3 %; Mean Corpuscular HGB Conc 32.5 g/dL (30.0-36.0); Mean Corpuscular Hemoglobin 31.2 pg (28.0-34.0); Mean Corpuscular Volume 95.9 fl (80-94); Mean Platelet Volume 9.5 fL (7.4-10.4); Monocytes # 0.7 10^3/uL (0.2-0.9); Monocytes % 8.5 %; Neutrophils # 2.81 10^3/uL (1.8-7.7); Neutrophils % 32.9 %; Nucleated Red Blood Cells % 0 %; Platelet Count 282 10^3/cmm (130-400); Red Blood Count 4.17 10^6/uL (4.1-5.3); Red Cell Distribution Width 13.2 % (12.1-15.1); White Blood Count 8.5 10^3/uL (4.0-10.0)
--- NOTE | 2021-04-25 11:07 | XACV_ITS ---
Exam Room: [facility] Ht: 180 cm Wt: 80 kg BSA: 2.01 m2 Gender: Male : 1935 Any Known Allergies: No known allergies Exam Priority: Routine Procedure(s): Procedure Description: Diagnostic procedure Procedure Description: PCI procedure Procedure Description: PTCA Procedure Description: Coronary Angiography Diagnostic Cath Status: Emergency Diagnostic Findings * Left Main has mild to moderate distal disease. * Left Anterior Descending is patent stent in the proximal segment.. * Circumflex has diffuse luminal irregularities. * Proximal Right Coronary Artery: obstructive 70% stenosis, VENKAT: 3 flow. Hazy lesion is seen. * Coronary angiography shows right dominance. PCI Status: Emergency PCI Indication: Other Interventional Findings * Procedure details: We engaged RCA with a JR4 guide catheter. IV heparin was administered to maintain an ACT above 250 seconds. A 0.014 run-through guidewire was used to cross the stenosis and was placed in PLV branch. 3.5 x 8 mm NC balloon was lost to perform balloon angioplasty inside ostial RCA stent. At this time final angiogram was performed that showed excellent stent expansion, VENKAT-3 flow and no residual stenosis. Guidewire and guide catheter were removed. 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 * Proximal Right Coronary Artery: 70% stenosis treated with a MDT NC EUPHORA RX [id number] BALLOON. 0% residual stenosis, VENKAT: 3 flow. Conclusions 1. There is 2. hazy stenosis inside ostial RCA stent 3. that was successfully revascularized with balloon angioplasty.. 4. Patent LAD stent. 5. Proximal Right Coronary Artery was treated with a Balloon. Recommendations * Continue aspirin and Plavix. * Transfer to ICU. * Extubate when possible. * Continue beta-ashley and amiodarone. Interventional RX Recommendation: PCI w/o planned CABG Diagnostic RX Recommendation: PCI w/o planned CABG Anticoagulation: Heparin Pressures Phase:Rest AO : 83 / 36 ( 42 ) @ 11:06:00 AM 150 / 69 ( 97 ) @ 11:17:00 AM 106 / 62 ( 81 ) @ 11:19:00 AM Clinical Evaluation EBL: 5mL-10mL Procedural Details Procedure Consent Obtained. Pre-Procedure Time Out. Identified patient by full name and date of as verbalized by the patient/guarantor. Does the consent match the physician's order: N/A Emergent. Accurate & Complete Informed Consent: N/A Emergent. Inpatient/Outpatient History & Physical on Chart: N/A Emergent. If H&P is completed, is and addenduem needed: N/A Emergent; If yes, is the addendum complete: N/A. Visualize and Verify Site with Patient/Guarantor: N/A. Relevant Radiology Images available: N/A. Pre-op teaching completed and patient verbalized understanding. The risks, benefits, and alternatives of sedation and/or procedure were discussed by physician. The patient agrees to continue. Procedure started. [facility] Clinical Fraility Score: 5: Mildly Frail. Welding Equipment Repairer Indications: Cardiac Arrhythmia. Chest Pain Symptom Assessment: Atypical Angina. Cardiovascular Instability: Yes, if yes, Ventricular Arrhythmias. Correct patient, site and procedure confirmed by cath team. PERRLA. Strong, equal hand tennis player bilaterally. Lungs clear x 5 lobes. Patient arrived to lab animal technician on a ventilator and will be managed by respiratiory. Physician notified. Baseline sample Acquired. HR: 89 BPM. Equipment: 6F - Femoral. Cardiac Cath Pack. ACIST Manifold Kit Model BT 2000. Heparinized Saline (2 units/mL), 1000 mL bag. Kit, Micropuncture. Inventory is CRD 6FR JR [address] Villarreal present at this time to give sedation orders. Physician arrived. Pt arrived with sanderson and NG tube in place. Lidocaine 1% infiltrated to the left groin. Arterial access obtained with micropuncture set. A 5 ukrainian JL4 catheter in over wire. Catheter removed over the standard wire. 6 ukrainian JR 4 guide catheter was inserted over the wire. propofol decreased to 5 mcg/kg/min. Norepi increased to 12 mcg/min. Pt arrived with propofol at 10 mcg/kg/min. Pt arrived with amiodorone at 0.5mg/ min. Multiple views taken of right coronary artery. Guide catheter out. A 5 ukrainian JR4 catheter in over wire. Catheter removed over the standard wire. Runthrough guidewire was advanced through the guide catheter to lesion in the prox RCA. Wire out. Guide catheter out. 6 ukrainian 3DRC guide catheter was inserted over the wire. Runthrough guidewire was advanced through the guide catheter to lesion in the prox RCA. Pt recieved 600 mg Plavix via OG tube in ER. Inflation number : 1 A MDT NC EUPHORA RX [id number] BALLOON was prepped and advanced across the Prox RCA , then inflated to 14 KAYLAH for 0:18 seconds. Inflation number: 2 The MDT NC EUPHORA RX [id number] BALLOON was reinflated across the Prox RCA, to 12 KAYLAH for 0:16 seconds. Inflation number: 3 The MDT NC EUPHORA RX [id number] BALLOON was reinflated across the Prox RCA, to 12 KAYLAH for 0:22 seconds. Balloon out. Results checked. Wire out. Guide catheter out. A Left femoral angiogram was performed to determine safe placement of closure device. A Perclose (Datapipe) was successful obtaining hemostatsis at the Left Femoral artery insertion site. Propofol increased to 10 mcg/kg/min. Perclose placed without complications. No signs or symptoms of hematoma noted. Sterile dressing applied per usual sterile fashion. Post Procedure: Pulses reassessed and unchanged. PERRLA. Strong, equal hand tennis player bilaterally. No VTE prophylaxis required. Medication's Wasted: Heparin = 1000 units. Physician scrubbed out. Contrast type used: Visipaque 320 mgI/mL, 500 mL bottle. Complications: none. Estimated blood loss: 5mL-10mL. Post-op diagnosis: moderate to severe instent stenosis prox RCA. Procedure completed. Patient transferred by bed to ICU. Vital chart was stopped. Access Site Site: Left Femoral artery Sheath Size: 6 Fr Hemostasis Method: Perclose (Datapipe) Hemostasis Success: Successful Procedure Medications Start: 11:56 AM Stop: 11:56 AM Medication: 0.9% Saline Amount: 250 ml Route: I.V. bolus Start: 11:58 AM Stop: 11:58 AM Medication: Versed Amount: 1 mg Route: I.V. Start: 11:58 AM Stop: 11:58 AM Medication: Fentanyl Amount: 50 mcg Route: I.V. Start: 12:08 PM Stop: 12:08 PM Medication: Levophed (norepinephrine) Amount: 10 mcg/min Route: I.V. drip Start: 12:19 PM Stop: 12:19 PM Medication: Fentanyl Amount: 50 mcg Route: I.V. Start: 12:19 PM Stop: 12:19 PM Medication: Versed Amount: 1 mg Route: I.V. Start: 12:35 PM Stop: 12:35 PM Medication: Heparin Amount: 5000 units Route: I.V. I, the attending physician, have reviewed and verified all procedure medications. Yes, all medications given per verbal order History/Risk Factors Hypertension: No Dyslipidemia: No Peripheral Arterial Disease (PAD): No Myocardial Infarction (AL): No Obesity: No Renal Disease: No Prior Interventions PCI: Yes CABG: No Valve Surgery: No Report Signatures Finalized by Ayaan Sen MD on 05/11/2021 07:51 PM
--- NOTE | 2021-04-25 11:10 | PC.NURSE ---
Pt arrives to ED with chest pain and shortness of breath. He has hx of 3 stents recently, pt in v-tach at 250, after failed vagal maneuvers, pt still in distress, rate continues to increase to 275. 1039: Pt cardioverted at 200J, continues in V-tach 1040: 150mg Amiodarone administered 1041: Pt cardioverted at 200J again, continues in V-tach. 1042: Pt now in asystole, Code blue called, chest compressions started. 1044: RT, Dr. Guadalupe, Ambreen RN, Jeannie RN, Sushant RN, Chadd RN in room. 1046: 1mg Epi administered 1047: 1 amp Sodium bicarb administered. 1049: 1mg epi administered. Pt in V-fib 1050: Pt defibrillated at 200J. Pt now sinus melissa with pulse. Atropine administered at this time as well, improvement in rate noted. See Mar for Versed r/t sedation afterward.
[2021-04-25 11:22] LABS: ABG PCO2 27.2 mmHg (35-45); ABG PH Result 7.32 (7.35-7.45); Base Excess ABG -10.6 mmol/L (-2.0-2.0); Oxygen Saturation ABG 98.3
--- NOTE | 2021-04-25 11:22 | ED_ITS ---
HPI - Chest Pain General: Chief Complaint: Chest Pain Stated Complaint: SVT, CHEST PAIN Time Seen by Provider: 04/25/21 10:36 Source: patient and EMS Mode of arrival: EMS Limitations: other (Patient is in ventricular tachycardia) History of Present Illness: HPI narrative: Patient with complaints of chest pain or shortness of breath upon arrival. Telemetry shows ventricular tac hycardia rate up to 220-270. See procedure note and critical care for procedures done. After discussion with family, patient reportedly had chest pain shortness of breath and anxiety just before arrival to the hospital. EMS was called patient was transported to the emergency room with diagnosis of SVT. Upon presentation emergency room and my physical exam, patient was found to be in ventricular tachycardia. Patient has recent possible history of acute OH with sustained ventricular tachycardia that required lexical cardioversion 2 to 3 weeks ago. Patient had 3 stents at that time. Family also states that there was a problem with his aorta but problem is not known. Patient is allergic to aspirin. Family states that rate controlling medication was not given this morning due to his heart rate being 49. MD complaint: chest pain, chest heaviness and chest discomfort Pertinent past history: coronary artery disease and prior OH Onset (ago): minute(s) (30) Timing of current episode: constant Prior episodes: Yes Onset: during rest Pain location: substernal Pain radiation: none Severity: mild Quality: aching Relieving factors: nothing Exacerbating factors: nothing Context: new medications Associated symptoms: Reports dyspnea and palpitations; Deny abdominal pain, fever(s), nausea, syncope or vomiting Treatment prior to arrival: none Review of Systems Const: Reports: fatigue and malaise; Denies: fever(s) or chills Eyes: Denies: change in vision ENMT: Denies: throat pain Card: Reports: chest pain, palpitations and dyspnea on exertion; Denies: syncope Resp: Reports: dyspnea and non-productive cough GI: Denies: abdominal pain, nausea or vomiting : Denies: flank pain Musc: Denies: neck pain or back pain Skin/Breast: Denies: rash or pruritus Neuro: Denies: headache(s) or numbness in extremities Psych: Reports: anxiety Lyle/Lymph: Denies: enlarged lymph nodes PFSH ED PFSH: Medical History Acute OH Acute non-ST elevation myocardial infarction (NSTEMI) Coronary artery disease Coronary artery disease Hypertension Sustained VT (ventricular tachycardia) Ventricular tachycardia Social History Smoking and tobacco status: never smoked Physical Exam Const: COMMON NORMALS: patient oriented x3, alert and well nourished GENERAL APPEARANCE: cooperative and anxious ORIENTATION/CONSCIOUSNESS: Yes awake, Yes oriented to person, Yes oriented to place and Yes oriented to time OTHER: Patient is anxious moderate general malaise. Telemetry shows ventricular tachycardia initially to 220/min HENMT: COMMON NORMALS: normocephalic and atraumatic HEAD & SCALP: normocephalic and atraumatic FACE & SINUS: normal facial exam Eye: COMMON NORMALS: EOMs intact bilaterally Neck/C-Spine: COMMON NORMALS: full ROM, no lymphadenopathy, supple and no meningeal signs GENERAL: Yes normal visual inspection Lymph: LYMPHATIC: no lymphadenopathy noted Chest: COMMONS NORMALS: normal inspection of the chest and normal palpation of entire chest wall CHEST: No Ecchymosis present and No rash Resp: COMMON NORMALS: normal respiratory effort and No retractions EFFORT & INSPECTION: No respiratory distress AUSCULTATION: rales (Mild) bilateral Cardio: COMMON NORMALS: regular rate and Peripheral pulses 2+ throughout JUGULAR VENOUS DISTENTION: other (Mild JVD) RATE: regular rate and tachycardic PERIPHERAL PULSES: Peripheral pulses 2+ throughout OTHER: Patient did have good pulses bilaterally with the ventricular tachycardia initially. However, after second defibrillation, patient became pulseless and CPR was started. GI: COMMON NORMALS: Normal to inspection, nondistended, normoactive bowel sounds present and non-tender : COMMON NORMALS: Yes no CVA tenderness BLADDER/KIDNEY EXAM: Yes no CVA tenderness Back/Pelvis: COMMON NORMALS: no CVA tenderness Extremity: COMMON NORMALS: normal to inspection, full ROM and capillary refill normal Neuro: COMMON NORMALS: patient oriented x3, CN's II-XII intact bilaterally, no focal motor deficits and no sensory deficits noted SENSORIUM/ORIENTATION: Yes alert, Yes oriented to person, Yes oriented to place and Yes oriented to time MENINGEAL SIGNS: Yes no meningeal signs Psych: COMMON NORMALS: mental status grossly normal and Normal thought process present THOUGHT PROCESS: Normal thought process present Skin: COMMON NORMALS: no rashes or lesions noted and no wounds GENERAL SKIN EXAM: no rashes or lesions noted Procedures Intubation Time out performed: No sedative: none paralytic: other (none) Laryngoscope: other ([place] scope) ET Tube Size: 7.5 ET Tube Uncuffed: Yes Tube Secured Depth (cm): 24 Tube Secured Location: teeth Tube Placement Confirmation: visualized tube passing through cords, equal breath sounds bilaterally and no breath sounds over epigastrium Patient Tolerated Procedure: well and no complications Intubation Complications: none Additional Comments: No complications. Oxygen saturation 98% after intubation. Patient intubated approximately 2 minutes after patient went into asystole. See critical care documentation for cardioversion notes. No sedation done with cardioversion. Cardioversion done couple minutes after patient arrives emergency room. Course ED course: After patient was found to have unstable ventricular tachycardia, cardioversion was done twice a 200 J. Patient converted to asystole with second cardioversion after no conversion with first cardioversion. Patient progressed from asystole to ventricular fibrillation. Patient obtained an atrial rate rhythm after third cardioversion and administration of epinephrine, atropine, bicarb and amiodarone. CPR was done by the nurse for approximately 10 minutes.. I did supervise the CPR. Vital Signs: Vital signs: Vital Signs Temperature 97.8 F 04/25/21 10:57 Pulse Rate 250 H 04/25/21 10:57 Respiratory Rate 26 H 04/25/21 10:57 Blood Pressure 90/50 04/25/21 10:57 Pulse Oximetry 96 04/25/21 10:57 MDM - Chest Pain MDM Narrative: Medical decision making narrative: see nursing assessment. Cardiology was consulted immediately after patient converted to atrial rhythm and pulse was regained. Dr. Sen came to the emergency room and evaluate the patient. He will take the patient to the Change Management Facilitator this morning. He asked that the hospitalist admit the patient to ICU. He asked that the patient received Plavix or aspirin. Patient is allergic to aspirin so Plavix will be given. Patient is intubated. Hospitalist asked for orogastric to be done ; we will give Plavix via orogastric tube. Patient's blood pressure was 96 over 50s. Therefore will hold on propofol for sedation. Patient responds well to half milligram of Versed as needed. Labs are pending. Lab Data: Attestation: I reviewed the patient's lab results. Labs: Lab Results 04/25/21 04/25/21 04/25/21 10:50 10:50 10:55 WBC 8.5 10^3/uL 10^3/ uL (4.0-10.0) RBC 4.17 10^6/uL 10^6 /uL (4.1-5.3) Hgb 13.0 g/dL g/dL (11.7-16.6) Hct 40.0 % L % (42.0-52.0) MCV 95.9 fl H fl (80-94) MCH 31.2 pg pg (28.0-34.0) MCHC 32.5 g/dL g/dL (30.0-36.0) RDW 13.2 % % (12.1-15.1) Plt Count 282 10^3/cmm 10^3 /cmm (130-400) MPV 9.5 fL fL (7.4-10.4) Neut % (Auto) 32.9 % % Lymph % (Auto) 51.3 % % Harris % (Auto) 8.5 % % Eos % (Auto) 6.5 % % Baso % (Auto) 0.7 % % Neut # (Auto) 2.81 10^3/uL 10^3 /uL (1.8-7.7) Lymph # (Auto) 4.4 10^3/uL 10^3/ uL (0.8-4.8) Harris # (Auto) 0.7 10^3/uL 10^3/ uL (0.2-0.9) Eos # (Auto) 0.6 10^3/uL 10^3/ uL (0.0-0.8) Baso # (Auto) 0.1 10^3/uL 10^3/ uL (0.0-0.1) Nucleated RBC % (a uto) 0 % % Nucleated RBCs # 0.0 /100WBC /100W BC APTT 35.0 SECONDS SECO NDS (23.9-36.7) Specimen Type Cancelled Sample Site Cancelled O2 Sat Pulse Oxime try Cancelled ABG pH ABG pCO2 ABG pO2 ABG HCO3 ABG O2 Saturation ABG Base Excess Daniel Test Cancelled A-a O2 Gradient Cancelled Hematocrit Cancelled Hgb O2 Saturation Cancelled Carboxyhemoglobin Cancelled Methemoglobin Cancelled Total Hemoglobin Cancelled Sodium Potassium Glucose Ionized Calcium Respiration Rate Cancelled O2 Delivery Device Cancelled O2 Liters/Min Cancelled SIMV Cancelled Vent Mode Cancelled Mechanical Rate Cancelled Spontaneous Rate Cancelled FiO2 Cancelled Tidal Volume Cancelled PEEP Cancelled Pressure Support Cancelled Pressure Control Cancelled CPAP Cancelled Mode BiPAP Cancelled Specimen Drawn By Cancelled Curtain Cutter ID Cancelled Crit Value Read Ba ck Cancelled Blood Gas Notified Time Cancelled 04/25/21 11:05 WBC RBC Hgb Hct MCV MCH MCHC RDW Plt Count MPV Neut % (Auto) Lymph % (Auto) Harris % (Auto) Eos % (Auto) Baso % (Auto) Neut # (Auto) Lymph # (Auto) Harris # (Auto) Eos # (Auto) Baso # (Auto) Nucleated RBC % (a uto) Nucleated RBCs # APTT Specimen Type arterial Sample Site lr O2 Sat Pulse Oxime try ABG pH 7.32 L (7.35-7.45) ABG pCO2 27.2 mmHg L mmHg (35-45) ABG pO2 110.0 mmHg H mmHg (80.0-100.0) ABG HCO3 14.0 mmol/L L mmo l/L (22-26) ABG O2 Saturation 98.3 ABG Base Excess -10.6 mmol/L L mm ol/L (-2.0-2.0) Daniel Test pos A-a O2 Gradient 136.7 mmHg H mmHg (5-10) Hematocrit 38.9 % L % (42-52) Hgb O2 Saturation 96.7 % % (95-100) Carboxyhemoglobin 0.6 %THgb %THgb (0.4-20.1) Methemoglobin 0.9 % % (0.4-1.5) Total Hemoglobin 12.7 g/dL L g/dL (14-18) Sodium 143.0 mmol/L mmol /L (131-143) Potassium 2.7 mmol/L L mmol /L (3.5-5.0) Glucose 209.0 mg/dL H mg/ dL (70-115) Ionized Calcium 1.2 mmol/L mmol/L (1.1-1.4) Respiration Rate O2 Delivery Device vent O2 Liters/Min SIMV Vent Mode Mechanical Rate Spontaneous Rate FiO2 40.0 % % Tidal Volume PEEP Pressure Support Pressure Control CPAP Mode BiPAP Specimen Drawn By Curtain Cutter ID amh Crit Value Read Ba ck Blood Gas Notified Time Imaging Data^: CXR: Attestation: I personally reviewed and interpreted this imaging study as follows: My impression: Endotracheal tube in good position in the trachea. There is a small left pleural effusion. Nothing else acute. EKG Data^: EKG 1: Attestation: I personally reviewed and interpreted this EKG as follows: EKG interpretation date: 04/25/21 EKG interpretation time: 11:05 Prior EKG tracings: not available for review Ischemic changes: non-specific ST-T wave changes Interpretation: EKG shows atrial fibrillation with right ventricular rate with rate of 105. IVCD, nonspecific ST-T changes. LVH. No acute OH. EKG was after cardioversion. Other EKG comments: Initial telemetry showed ventricular tachycardia with rate of 220-270. This was before cardioversion. Critical Care Time Critical Care Time: Critical Care Time: Yes Total Critical Care Time: 50 Attestation: See orders. Patient required 2 separate conscious cardioversion 200 J. Patient then required another cardioversion while unconscious at 200 J. Patient was in respiratory distress and having active chest pain at the initial cardioversion. Patient had no change in rhythm with first cardioversion. After second cardioversion, patient went into asystole and became unconscious. CPR and ACLS protocol was followed. Patient was given initially 150 mg amiodarone followed by another 150 mg of amiodarone for a total of 300 mg of amiodarone. Patient was also given epinephrine 1 or 2 doses of 1 mg each. Patient also given milligram atropine and amp of bicarb. Patient was intubated with 7.5 mm endotracheal tube via the glide scope without complications. No sedation was required for intubation. No aspiration. No emesis in the posterior pharynx. Patient intubated on first attempt. Endotracheal tube was at 24 cm at the teeth. Good breath sounds bilaterally. No epigastric sounds. Oxygen saturation 98% on ventilator. Again no complications with intubation. Family was notified of the procedure and results. Discharge Plan Discharge Patient Disposition: Admitted As Inpatient Admit Provider: Emmanuel Villarreal Clinical Impression: Sustained VT (ventricular tachycardia), Unstable angina pectoris Chest pain Qualifiers: Chest pain type: chest pain due to myocardial ischemia Ischemic chest pain type: unstable angina pectoris Qualified Code(s): I20.0 - Unstable angina Condition: Critical Discharge Activity: Bedrest Coding Level of Care Code ED Special Education Professional for Lawson Zelaya
[2021-04-25 11:23] LABS: Arterial Blood Gas Hematocrit 38.9 % (42-52); Blood Gas Allen Test pos; Blood Gas Operator Identificat amh; Blood Gas Sample Site lr; Oxygen Device vent; Potassium Level - ABG 2.7 mmol/L (3.5-5.0)
[2021-04-25 11:24] LABS: Alveolar-Arterial Oxygen Gradi 136.7 mmHg (5-10); Carboxyhemoglobin 0.6 %THgb (0.4-20.1); HGB O2 Sat 96.7 % (95-100); Ionized Calcium Level - ABG 1.2 mmol/L (1.1-1.4); Methemoglobin 0.9 % (0.4-1.5); Total Hemoglobin 12.7 g/dL (14-18)
[2021-04-25] MEDS: fentaNYL 50 mcg/mL INJ 2mL 25 MCG IVP (11:25)
[2021-04-25 11:31] LABS: Troponin(5th) Baseline 22 ng/L (0-15)
[2021-04-25] MEDS: clopidogrel 300 mg Tablet OG-TUBE (11:37)
[2021-04-25] MEDS: propofol 1,000 MG/100 ML INJ 5.78 MG IV (11:38)
--- NOTE | 2021-04-25 11:38 | PC.PHAR ---
pt unable to verify due to intubation - pt daughter states he no longer takes carvedilol 12.5 mg BID, pt is only taking metoprolol 12.5mg BID occasionally because his heart rate has been so low lately.
--- NOTE | 2021-04-25 11:40 | PM.HP ---
Providers/Chief Complaint Admitting Physician: Emmanuel Villarreal MD Primary Care Provider: Gene Peralta Chief Complaint: SVT, CHEST PAIN History of Present Illness Jesus Saucedo is a 85 year old male who presents to the hospital with shortness of breath. Apparently he was in ventricular tachycardia at an accelerated rate over 200. Cardioversion was attempted, and he ended up going into ventricular fibrillation. He received several doses of amiodarone and was placed on an amiodarone drip. He received CPR. He received at least 2 doses of epinephrine, 1 dose of bicarb, 1 dose of atropine. Eventually sinus rhythm was achieved. During this time he was intubated. He has been taken to the [facility] for evaluation of his coronary arteries, and plan is to admit him to the ICU following this. He had a similar admission April 11 for which an LAD stent was placed. He was discharged on the . Ejection fraction at that time was approximately 40% with mild valvular abnormalities and inferior wall motion abnormality. Following the code he came awake, was able to look around prior to sedation. Review of Systems General: Reports: ROS unobtainable due to mental status (Intubated and sedated) Medications/Allergies Home Medications Medication Instructions Recorded Confirmed Last Taken Type ezetimibe 10 mg PO DAILY 04/12/21 04/25/21 Unknown History isosorbide mononitrate 30 mg PO DAILY 04/12/21 04/25/21 Unknown History nitroglycerin 0.4 mg SUBLINGUAL Q5MIN PRN 04/12/21 04/25/21 Unknown History potassium chloride 20 meq PO BID 04/12/21 04/25/21 Unknown History rosuvastatin 40 mg PO DAILY 04/12/21 04/25/21 Unknown History amlodipine 5 mg PO DAILY #90 tab 04/15/21 04/25/21 Unknown Rx apixaban [Eliquis] 5 mg PO BID@0900,2100 #90 tab 04/15/21 04/25/21 Unknown Rx clopidogrel 75 mg PO DAILY #90 tab 04/15/21 04/25/21 Unknown Rx furosemide 40 mg tablet 40 mg PO DAILY #90 tab 04/21/21 04/25/21 Unknown Rx losartan 100 mg tablet 150 mg PO DAILY #240 tab 04/21/21 04/25/21 Unknown Rx metoprolol tartrate 25 mg tablet 12.5 mg PO BID tab 04/21/21 04/25/21 Unknown History [id number] acid-lutein [Centrum 1 tab PO DAILY 04/25/21 04/25/21 Unknown History Silver] Allergies Allergy/AdvReac Type Severity Reaction Status Date / Time JACKIE Inhibitors Allergy Unknown Unknown Verified 04/21/21 09:35 aspirin Allergy ALGY-Hives Verified 04/21/21 09:35 PFSH Acute PFSH: Medical History (Updated 04/25/21 @ 11:53 by Emmanuel Villarreal MD) Acute GA Acute non-ST elevation myocardial infarction (NSTEMI) Coronary artery disease Coronary artery disease Hyperlipidemia Hypertension Sustained VT (ventricular tachycardia) Ventricular tachycardia Surgical History Stented coronary artery Social History Smoking and tobacco status: never smoked Supplemental PFSH Information: Unable to review family history or social history currently secondary to intubation and sedation. Vitals/I&O/Wt Last Vital Signs Temp 97.8 F 04/25/21 10:57 Pulse 250 H 04/25/21 10:57 Resp 26 H 04/25/21 10:57 BP 90/50 04/25/21 10:57 Pulse Ox 96 04/25/21 10:57 Weight last 48 hrs Weight 80.286 kg Physical Exam Narrative: EXAM NARRATIVE: General exam is an intubated white male who will come awake when stimulated. HEENT: Atraumatic and normocephalic. Endotracheal tube and orogastric tube no noted. Neck is supple no lymphadenopathy or thyromegaly Cardiovascular regular rate and rhythm, heart sounds distant. No obvious murmur Lungs clear no wheezing or crackles Abdomen is soft, positive bowel sounds. No obvious organomegaly exam Whitman noted Extremities no cyanosis clubbing. Trace of edema. Cap refill intact. Skin no rash Neuro no obvious focal deficits. Urinary Catheter Management^: Whitman: Cath Placed During This Visit: yes Urinary Catheter Date of Insertion: 04/25/21 Urinary Catheter Time of Insertion: 11:00 Data : 04/25/21 10:50 04/25/21 10:50 A&P Assessment and plan (1) Sustained VT (ventricular tachycardia): Cardioverted in the emergency department and amiodarone drip initiated. Coronary angiogram to be done momentarily Potassium 3.6. Will supplement. Awaiting magnesium. Status: Acute (2) Cardiac arrest: See above Serial troponins Echocardiogram, limited Cardiology consultation Await angiogram Status: Acute (3) Coronary artery disease: Continue statin Hold beta-ashley secondary to hypotension currently Angiogram momentarily Continue Plavix Patient allergic to from Status: Acute (4) Cardiomyopathy: Last ejection fraction 40%. Repeat, limited echo Status: Acute (5) Hypertension: Hold meds secondary hypotension. Status: Acute (6) Pneumonia: Possible pneumonia with left lower lobe infiltrate Initiate Zosyn, vancomycin Sputum culture Blood culture Status: Acute Additional A&P Information Full code Patient on Eliquis prior to hospitalization. Unknown yet if he took his morning medications. Currently undergoing angiogram. Will determine if anticoagulation needs to continue following this. SCDs currently for DVT prophylaxis. Attestations Medical Necessity Statement*: Will need greater than 2 midnight stay for evaluation and treatment of cardiac arrhythmia status post code Time Spent in Patient Care: Greater than 35 minutes Coding Level of Care Code Acute [facility] Worker for Lawson Zelaya Diagnoses Sustained VT (ventricular tachycardia) I47.2 Cardiac arrest I46.9 Coronary artery disease I25.10 Cardiomyopathy I42.9 Hypertension I10 Pneumonia J18.9
[2021-04-25 11:44] LABS: Anion Gap 16.6 (5-19); Blood Urea Nitrogen 9 mg/dL (8-23); Calcium 9.2 mg/dL (8.5-10.5); Carbon Dioxide 21 mmol/L (22-29); Chloride 104 mmol/L (98-107); Glucose 105 mg/dL (65-115); NT Pro B Type Natriuretic Pept 834 pg/mL (0-450); Osmolality Calculated 285 mOsm/kg (285-295); Potassium 3.6 mmol/L (3.5-5.1); Sodium 138 mmol/L (136-145)
--- NOTE | 2021-04-25 12:03 | USCV_ITS ---
Jesus Saucedo Age: 85 Gender: M : 1935 Exam Date: 04/25/2021 15:55 Ordering Phys: Emmanuel Vilalrreal MD Technologist: Leslie Hernandez [place] [facility] [place]ication: S/P CODE BP: / HR: Rhythm: Sinus Technical Quality: Adequate MEASUREMENTS (Male / Female) Normal Values FINDINGS Left Ventricle Technically limited quality echocardiogram. LV systolic function is moderately reduced with EF of 35-40%. Moderate global hypokinesis Right Ventricle Grossly normal Right Atrium Enlarged Left Atrium Left atrium is enlarged Mitral Valve Grossly normal. Mild mitral regurgitation Aortic Valve Aortic valve is mildly thickened. Tricuspid Valve Not well visualized Pulmonic Valve Not visualized Pericardium Grossly normal Aorta Not well visualized CONCLUSIONS Technically limited quality echocardiogram because of limited ultrasonic windows LV systolic function is moderately reduced with EF of 35-40%. Moderate global hypokinesis Biatrial enlargement Mild mitral regurgitation Compared to prior echocardiogram from 02/11/2021,LV systolic function is reduced further to 35-40%. Ayaan Sen MD (Electronically Signed) Final Date: 25 April 2021 18:28 S
[2021-04-25 12:12] LABS: Bacteria Urine 3+ /hpf; Bilirubin Urine Neg (Negative); Blood Urine Neg (Negative); Glucose Urine UA Norm (Normal); Ketones Urine Negative (Negative); Leukocyte Esterase Urine Trace (Negative); Nitrate Urine Negative (Negative); Protein Urine Trace (Negative); RBC Urine 0-4 /hpf (0-2); Urine Appearance Hazy (CLEAR); Urine Color Yellow (Yellow); Urobilinogen Urine Norm (Negative); pH Urine 7 (5-7)
[2021-04-25 12:13] LABS: Add Urine Culture? Yes; Amorphous Sediment Urine 2+ /hpf; Mucus Urine 1+ /hpf
[2021-04-25 12:33] LABS: Magnesium 2.1 mg/dL (1.7-2.3)
[2021-04-25 13:38] LABS: Thyroid Stimulating Hormone 1.71 uIU/mL (0.27-4.20)
--- NOTE | 2021-04-25 13:58 | PM.CONSULT ---
Providers/Reason For Consult Consulting Physician/Specialty*: Ayaan Sen MD/ Cardiology Reason for Consult*: Ventricular tachycardia Requesting Physician: Dr Anayeli TELLO Attending Physician: Emmanuel Villarreal MD Primary Care Provider: Gene Peralta History of Present Illness History of Present Illness Jesus Saucedo is a 85 year old male with past medical history of atrial fibrillation, hypertension, coronary artery disease who had recent ventricular tachycardia event a couple of weeks ago when he underwent successful revascularization of ostial RCA with ALEXANDRA x2 and proximal LAD with ALEXANDRA x1. He presented today again with chest pain, shortness of breath and was found to be in ventricular tachycardia. He underwent cardioversion and was intubated. EKG post arrest showed ST depressions and prolonged QTC interval. Coronary angiogram was performed as he had recent stents placed and he had VT. Patient had patent LAD stent. RCA stent was ostial in location and difficult to engage. However flow was present throughout RCA. In ostial RCA stent haziness was noted concerning for possible thrombus. Given we did not have IVUS availability, balloon angioplasty was performed and flow improved after angioplasty. Review of Systems General: Reports: ROS unobtainable due to endotracheal tube Meds/Allergies Home Medications and Allergies Home Medications Medication Instructions Recorded Confirmed Last Taken Type ezetimibe 10 mg PO DAILY 04/12/21 04/25/21 Unknown History isosorbide mononitrate 30 mg PO DAILY 04/12/21 04/25/21 Unknown History nitroglycerin 0.4 mg SUBLINGUAL Q5MIN PRN 04/12/21 04/25/21 Unknown History potassium chloride 20 meq PO BID 04/12/21 04/25/21 Unknown History rosuvastatin 40 mg PO DAILY 04/12/21 04/25/21 Unknown History amlodipine 5 mg PO DAILY #90 tab 04/15/21 04/25/21 Unknown Rx apixaban [Eliquis] 5 mg PO BID@0900,2100 #90 tab 04/15/21 04/25/21 Unknown Rx clopidogrel 75 mg PO DAILY #90 tab 04/15/21 04/25/21 Unknown Rx furosemide 40 mg tablet 40 mg PO DAILY #90 tab 04/21/21 04/25/21 Unknown Rx losartan 100 mg tablet 150 mg PO DAILY #240 tab 04/21/21 04/25/21 Unknown Rx metoprolol tartrate 25 mg tablet 12.5 mg PO BID tab 04/21/21 04/25/21 Unknown History cx-wmy-ngznc acid-lutein [Centrum 1 tab PO DAILY 04/25/21 04/25/21 Unknown History Silver] Allergies Allergy/AdvReac Type Severity Reaction Status Date / Time JACKIE Inhibitors Allergy Unknown Unknown Verified 04/21/21 09:35 aspirin Allergy ALGY-Hives Verified 04/21/21 09:35 Current Medications Current Medications Generic Name Dose Route Start Last Admin Trade Name Aliza PRN Reason Stop Dose Admin Amiodarone HCl 900 mg/ 518 mls @ 0 mls/hr 04/25/21 10:45 04/25/21 11:09 Dextrose/ IV Miscellaneous IV 1 mg/min Supplies .Q0M RICARDO 34.53 mls/hr Administration Protocol Per Protocol Propofol 1,000 mg in 100 mls @ 0 mls/hr 04/25/21 11:30 04/25/21 11:38 Diprivan IV 12 mcg/kg/min .Q0M RICARDO 5.78 mls/hr Administration Protocol Per Protocol PFSH Acute PFSH: Medical History Acute [place] Acute non-ST elevation myocardial infarction (NSTEMI) Atrial fibrillation Coronary artery disease Coronary artery disease Hyperlipidemia Hypertension Sustained VT (ventricular tachycardia) Ventricular tachycardia Surgical History Stented coronary artery Social History Smoking and tobacco status: never smoked Vitals/I&O/Wt Last Vital Signs Temp 97.8 F 04/25/21 10:57 Pulse 250 H 04/25/21 10:57 Resp 26 H 04/25/21 10:57 BP 90/50 04/25/21 10:57 Pulse Ox 96 04/25/21 10:57 Weight last 48 hrs Weight 177 lb Physical Exam Narrative: EXAM NARRATIVE: NARRATIVE: Intubated and sedated NECK: No jugular vein distension. [] HEENT: No cyanosis. No icterus. No pallor. [] HEART: Normal rate and rhythm, S1+S2, grade 2/6 systolic murmur LUNGS: Mild crackles ABDOMEN: Soft, nontender and nondistended. Positive bowel sounds. No guarding, rebound or tenderness. [] CENTRAL NERVOUS SYSTEM: Intubated and sedated EXTREMITIES: Lower extremities with 1+ edema bilaterally. Pulses palpable in the lower extremities, both dorsalis pedis and posterior tibial. [] Urinary Catheter Management^: Whitman: Cath Placed During This Visit: yes Urinary Catheter Date of Insertion: 04/25/21 Urinary Catheter Time of Insertion: 11:00 A&P Assessment and plan (1) Sustained VT (ventricular tachycardia): Status: Acute (2) Coronary artery disease: Status: Acute (3) Congestive heart failure: Status: Acute (4) Hypertension: Status: Acute (5) Cardiomyopathy: Status: Acute (6) Atrial fibrillation: Status: Acute Patient has presented with ventricular tachycardia. Given his recent stents he underwent coronary angiogram that showed patent LAD stent. RCA stents were ostial in location and difficult to engage with the guide catheter. Possible haziness seen in the stent. Given IVUS nonavailability, we proceeded with balloon angioplasty of the stent to ensure excellent flow. VT is unlikely to be ischemic in nature as overall patient has good coronary blood supply. It could be secondary to prior scar, prolonged QT or idiopathic.As patient has 2 episodes of sustained ventricular tachycardia in last 2-3 weeks, requiring cardioversion, we will recommend placement of ICD. This will also allow us to increase the dose of beta blockers/anti-arrhthmics as he is bradycardic at baseline. Will consult Dr Diamond for ICD placement on Wednesday. Patient is on amiodarone drip. We will repeat EKG and if QTc interval is still prolonged, we will stop amnio drip. Continue Eliquis 5 mg twice daily and plavix 75 daily Start metoprolol at low dose and can uptitrate the dose if heart rate tolerates. Order limited echocardiogram to assess the LV systolic function Keep Mg >2, K > 4 Thank you for involving us with care of this patient. We will continue to follow. Please call with questions. Coding Level of Care Code Acute Climatology Professor for Chg Fwd Diagnoses Sustained VT (ventricular tachycardia) I47.2 Coronary artery disease I25.10 Congestive heart failure I50.9 Hypertension I10 Cardiomyopathy I42.9 Atrial fibrillation I48.91
[2021-04-25] MEDS: morphine 4 mg/mL SDV 1 mL 2 MG IVP ×3 (14:18→23:40)
--- NOTE | 2021-04-25 14:23 | PC.RESP ---
extubated pt extubated and placed on 3lpm nc
--- NOTE | 2021-04-25 14:30 | PC.NURSE ---
Admit Note Patient admitted to ICU 2 from [facility] via bed. Covering service notified. Patient presents with clothing, wallet, belt, nitro, chewing tobacco, and chap stick as personal belongings. Family shown to room. Orders reviewed & will continue to monitor. Patient came intubated. Patient had amiodarone at 0.5, Propofol at 10, saline at 75, and norepinephrine at 12. Around 1355 the patient was extubated. Family was brought in after extubation. Patient and/or community health program representative oriented to environment, equipment, and informed of the following as found in the admission booklet: patient rights & responsibilities, visitor policy, hand and respiratory hygiene practice. Other education includes: admin teaching, CAUTI education, pain program, and treatment plan. Patient verbalized understanding.
--- NOTE | 2021-04-25 14:54 | XR_ITS ---
WS: [id number] Portable AP upright chest, 04/25/2021, 1457 hours Clinical Data: post cath Comparison: Portable chest, today, 1109 hours. Findings: No nodules, masses or effusions are seen. The heart is large. The pulmonary vascularity is not increased. No pneumonia or pneumothorax is seen. There is left basilar atelectasis and/or consoli dation. The endotracheal tube has been removed. Monitor leads on the chest wall. XR/XR chest 1V portable [id number] Impression: 1. No change in cardiomegaly and left basilar consolidation or atelectasis. 2. Removal of endotracheal tube.
[2021-04-25] MEDS: piperacillin-tazobactam 3.375 GM in sodium chloride 0.9% (plus) 50 ML IV ×2 (15:35→20:01)
[2021-04-25] MEDS: pantoprazole 40 mg SDV IVP (15:35)
[2021-04-25] MEDS: lidocaine 1% 5 ML in potassium chloride premix 100 ML 25 ML IV (15:36)
[2021-04-25] MEDS: vancomycin 1,250 MG/250 ML PIGGYBACK 250 MG IV (16:45)
[2021-04-25] MEDS: acetaminophen 325 mg Tablet 650 MG PO (16:45)
--- NOTE | 2021-04-25 16:52 | ECG_ITS ---
[facility] Test Date: 2021-04-25 Pat Name: Jesus Saucedo Department: Room: ICU02 Gender: Male Cad Draftsman: : 1935 Requested By: Zach Singer Order Number: [id number] Anders MD: Ayaan Sen M.D. Measurements Intervals [place] Rate: 80 P: ME: QRS: -12 QRSD: 126 T: 0 QT: 438 QTc: 505 Interpretive Statements ATRIAL FIBRILLATION MODERATE INTRAVENTRICULAR CONDUCTION DELAY [110+ ms QRS DURATION] VOLTAGE CRITERIA FOR LVH [MEETS CRITERIA IN ONE OF: R(aVL), S(V1), R(V5), R(V5/V6)+S(V1)] MODERATE ST DEPRESSION [0.05+ mV ST DEPRESSION] PROLONGED QT INTERVAL Compared to ECG 04/25/2021 11:01:40 Left ventricular hypertrophy now present ST (T wave) deviation now present Prolonged QT interval now present Myocardial infarct finding no longer present Electronically Signed On 04-25-2021 22:48:48 CDT by Ayaan Sen M.D. [id number]
[2021-04-25] MEDS: oxyCODONE 5 mg IR Tab/Cap PO ×2 (17:29→21:17)
[2021-04-25 18:01] LABS: Troponin 5 6HR 819.9 ng/L (0-15); Troponin 5 6HR Delta 797.9 ng/L (0-12)
--- NOTE | 2021-04-25 18:32 | PC.NURSE ---
Patient states that when he does not move the pain is at a 3. The patient states that when he feels like he needs to cough or moves his arms the pain is goes up to 10 or 20, on a zero to 10 pain scale. The room is darkened and TV turned on.
--- NOTE | 2021-04-25 18:53 | PC.NURSE ---
Shift Note Frequent safety and comfort rounds continue. Orders and/or nursing care completed as indicated. Patient monitored for response to intervention and treatment(s). Education provided includes treatment plan, medications, new results, and pain control plan. Patient verbalized understanding. Patient states, I was ok but after I took a shower this morning this started . Patient states the moving arms and coughing makes the pain in his chest worse. Patient expresses concern about the pain in his chest. Stated that the patient had cardioversion and CRP. Turned on TV for the patient and the patient went to sleep with the television playing.
[2021-04-25] MEDS: HYDROmorphone 1 mg/mL INJ 1 mL IVP (20:52)
[2021-04-25 22:06] LABS: SARS Covid-2 Antigen Negative (Negative)
[2021-04-25] MEDS: acetaminophen-codeine 120-12 mg/5 mL UDC 2.5 ML PO (23:01)
[2021-04-26] VITALS (55 sets, daily range): BP systolic 99–158; BP diastolic 56–96; PULSE 57–93; RESP 13–31; TEMP 36.8–37.1; O2SAT 86–98
[2021-04-26] MEDS: oxyCODONE 5 mg IR Tab/Cap PO ×3 (01:25→14:56)
[2021-04-26] MEDS: HYDROmorphone 1 mg/mL INJ 1 mL IVP ×3 (04:13→20:02)
[2021-04-26] MEDS: piperacillin-tazobactam 3.375 GM in sodium chloride 0.9% (plus) 50 ML IV ×3 (04:14→20:04)
[2021-04-26 05:13] LABS: Basophils % 0.2 %; Eosinophils % 0.1 %; Hematocrit 34.9 % (42.0-52.0); Hemoglobin 11.3 g/dL (11.7-16.6); Lymphocytes # 1.8 10^3/uL (0.8-4.8); Lymphocytes % 14.4 %; Mean Corpuscular HGB Conc 32.4 g/dL (30.0-36.0); Mean Corpuscular Hemoglobin 31.3 pg (28.0-34.0); Mean Corpuscular Volume 96.7 fl (80-94); Mean Platelet Volume 9.7 fL (7.4-10.4); Monocytes % 8.1 %; Neutrophils # 9.73 10^3/uL (1.8-7.7); Neutrophils % 76.8 %; Nucleated Red Blood Cells % 0 %; Platelet Count 211 10^3/cmm (130-400); Red Blood Count 3.61 10^6/uL (4.1-5.3); Red Cell Distribution Width 13.5 % (12.1-15.1); White Blood Count 12.7 10^3/uL (4.0-10.0)
[2021-04-26 05:45] LABS: Alanine Aminotransferase 60 U/L (0-41); Albumin Level 3.4 g/dL (3.5-5.2); Alkaline Phosphatase 57 IU/L (40-130); Anion Gap 14.3 (5-19); Aspartate Amino Transferase 70 U/L (0-40); Blood Urea Nitrogen 11 mg/dL (8-23); Calcium 8.7 mg/dL (8.5-10.5); Carbon Dioxide 21 mmol/L (22-29); Chloride 107 mmol/L (98-107); Glucose 101 mg/dL (65-115); Magnesium 1.9 mg/dL (1.7-2.3); Osmolality Calculated 286 mOsm/kg (285-295); Potassium 4.3 mmol/L (3.5-5.1); Sodium 138 mmol/L (136-145); Total Bilirubin 0.8 mg/dL (0.15-1.2); Total Protein 6.4 g/dL (6.6-8.7)
--- NOTE | 2021-04-26 08:01 | PC.NURSE ---
1120 recd. from [facility] on amiodarone at o.5
--- NOTE | 2021-04-26 08:46 | XRR_ITS ---
PROCEDURE INFORMATION: Exam: XR Chest Exam date and time: 04/26/2021 8:46 AM Age: 85 years old Clinical indication: Pain; Chest pressure; Additional info: Chest pain TECHNIQUE: Imaging protocol: XR of the chest. Views: 1 view. COMPARISON: CR XR chest 1V portable [id number] 04/25/2021 2:54 PM FINDINGS: Lungs and pleural spaces: Pulmonary vascular congestion with evidence for mild interstitial edema. Streaky left basilar opacities similar to prior, with suspected small effusion. No dense consolidation is appreciated. Small right effusion not excluded. No visible pneumothorax. Heart/Mediastinum: Cardiac silhouette remains moderately enlarged. Bones/joints: Unremarkable. XR/XR chest 1V portable [id number] IMPRESSION: No significant interval change. Findings most consistent with congestive failure with mild edema and suspected small effusions, left greater than right. Developing left lower lobe pneumonia difficult to exclude. Radiation Dose CTDIVOL = (mGy): DLP = (mGy-cm)
[2021-04-26 08:59] LABS: D Dimer 7.26 ug/mIFEU (0-0.59)
[2021-04-26] MEDS: atorvastatin 40 mg Tablet 80 MG PO (10:19)
[2021-04-26] MEDS: clopidogrel 75 mg Tablet PO (10:20)
[2021-04-26] MEDS: pantoprazole 40 mg SDV IVP (10:20)
[2021-04-26] MEDS: vancomycin 1,250 MG/250 ML PIGGYBACK 100 MG IV (10:21)
--- NOTE | 2021-04-26 10:37 | PC.NURSE ---
m.s. given for chest pain. when pt coughing, can feel ribs grating in upper right chest area. he describes the feeling he gets prior to coughing as a bubble that starts down low then comes on up.
--- NOTE | 2021-04-26 10:47 | PC.NURSE ---
Removal of Whitman catheter, 10 mL of fluid removed from balloon. Pt tolerated removal of Whitman well. Emptied 230 mL of urine out of bag into the toilet. GERARD AguilarN
[2021-04-26] MEDS: amiodarone 200 mg Tablet 400 MG PO (10:59)
[2021-04-26] MEDS: apixaban 5 mg Tablet PO ×2 (10:59→20:04)
[2021-04-26] MEDS: morphine 4 mg/mL SDV 1 mL 2 MG IVP (11:11)
--- NOTE | 2021-04-26 11:52 | P.PN_ITS ---
Subjective Subjective: Interval history: Patient is overall doing well. Extubated yesterday. He has chest pain when coughs . Possible pneumonia noted on CXR and is on treatment per medicine team. QTc prolonged on the EKG. Telemetry has occasional PVCs. Vitals/I&O/Wt Last Vital Signs Temp 98.2 F 04/26/21 08:00 Pulse 70 04/26/21 10:30 Resp 20 H 04/26/21 11:11 BP 143/65 04/26/21 10:30 Pulse Ox 93 04/26/21 10:30 04/25/21 04/26/21 04/26/21 22:59 06:59 14:59 Intake Total 455 / 499.598 100 / 599.598 568 / 568 Output Total 375 / 375 500 / 875 230 / 230 Balance 80 / 124.598 -400 / -275.402 338 / 338 Weight last 48 hrs Weight 180 lb 7.279 oz Weight 177 lb Physical Exam Narrative: EXAM NARRATIVE: NARRATIVE: Alert and oriented x3 NECK: No jugular vein distension. [] HEENT: No cyanosis. No icterus. No pallor. [] HEART: Normal rate and rhythm, S1+S2, grade 2/6 systolic murmur LUNGS: Mild crackles ABDOMEN: Soft, nontender and nondistended. Positive bowel sounds. No guarding, rebound or tenderness. [] CENTRAL NERVOUS SYSTEM: Alert and oriented x 3 EXTREMITIES: Lower extremities with 1+ edema bilaterally. Pulses palpable in the lower extremities, both dorsalis pedis and posterior tibial. [] Urinary Catheter Management^: Whitman: Cath Placed During This Visit: yes, but has since been removed by the nurse Reason for Continuing Indwelling Catheter: Not indwelling catheter Urinary Catheter Date of Insertion: 04/25/21 Urinary Catheter Time of Insertion: 11:00 Date Urinary Catheter Removed: 04/26/21 Time Urinary Catheter Discontinued: 10:35 Data : 04/26/21 04:36 04/26/21 04:36 Micro: Microbiology 04/25/21 11:30 Urine Culture - Preliminary Urine,Clean Catch Enterococcus species 04/25/21 14:07 Gram Stain - Final Sputum - Endotracheal Tube Aspirate Sputum Culture - Preliminary 04/25/21 17:22 Blood Culture - Preliminary Blood SPECIMEN COLLECTED 04/25/21 17:08 Blood Culture - Preliminary Blood SPECIMEN COLLECTED 04/25/21 14:07 MRSA Culture - Final Nose A&P Assessment and plan (1) Sustained VT (ventricular tachycardia): Status: Acute (2) Coronary artery disease: Status: Acute (3) Congestive heart failure: Status: Acute (4) Hypertension: Status: Acute (5) Cardiomyopathy: Status: Acute (6) Atrial fibrillation: Status: Acute (7) Prolonged QT interval: Status: Acute Patient has presented with ventricular tachycardia. Given his recent stents he underwent coronary angiogram that showed patent LAD stent. RCA stents were ostial in location and difficult to engage with the guide catheter. Possible haziness seen in the stent. Given IVUS nonavailability, we proceeded with balloon angioplasty of the stent to ensure excellent flow. VT unlikely to be ischemic in nature as overall patient has good coronary blood supply. It could be secondary to prior scar, prolonged QTc or idiopathic. As patient has 2 episodes of sustained ventricular tachycardia in last 2-3 weeks, requiring cardioversion, we will recommend placement of ICD. This will also allow us to increase the dose of beta blockers/anti-arrhthmics as he is melissa cardic at baseline. Will consult Dr Diamond for ICD placement on Wednesday. EKG showing prolonged QTc. Stop amiodarone. Start metoprolol 12.5 mg BID. Can uptitrate to 25mg BID, if heart rate tolerates. Start Mexiletine 200 mg TID. Continue Eliquis 5 mg twice daily and plavix 75 daily ECHO shows reduction of EF to 35-40% from 40-45% on last echocardiogram Keep Mg >2, K > 4 Thank you for involving us with care of this patient. We will continue to follow. Please call with questions. Attestations Medical Necessity Statement*: Care expected to cross 2 midnights. Coding Level of Care Code Acute Claim Processing Specialist for g Fwd Diagnoses Sustained VT (ventricular tachycardia) I47.2 Coronary artery disease I25.10 Congestive heart failure I50.9 Hypertension I10 Cardiomyopathy I42.9 Atrial fibrillation I48.91 Prolonged QT interval R94.31
[2021-04-26] MEDS: magnesium sulfate premix 2 GM/50 ML PIGGYBACK IV (12:56)
--- NOTE | 2021-04-26 13:14 | P.PN_ITS ---
Subjective Subjective: Interval history: Overnight bradycardia noted on telemetry this morning heart rate was ultimately 60-80 A. fib He was extubated on 04/25 He was saturating 2 L however this was weaned off this morning and he was saturating well on room air No active shortness of breath He does experience chest pain on deep breathing Requested D-dimer this morning to rule PE D-dimer 7.2 EKG showing QTC prolongation 505 amiodarone discontinued this morning, started metoprolol as per cardiology recommendations, Dr. Sen also recommended mexiletine 200 mg every 8 hours Patient finished amiodarone drip today, no p.o. amiodarone tablets for concern of QTC prolongation Clean cardiac cath Potassium 4.3 magnesium 1.9, will replete magnesium today as well Awaiting AICD placement Whitman catheter to be removed today Repeat chest x-ray this morning Vitals/I&O/Wt Last Vital Signs Temp 98.2 F 04/26/21 08:00 Pulse 70 04/26/21 10:30 Resp 20 H 04/26/21 11:11 BP 143/65 04/26/21 10:30 Pulse Ox 93 04/26/21 10:30 04/25/21 04/26/21 04/26/21 22:59 06:59 14:59 Intake Total 455 / 499.598 100 / 599.598 818 / 818 Output Total 375 / 375 500 / 875 230 / 230 Balance 80 / 124.598 -400 / -275.402 588 / 588 Weight last 48 hrs Weight 81.853 kg Weight 80.286 kg Physical Exam Narrative: EXAM NARRATIVE: Patient was awake and alert Saturating well on room air Does experience chest pain with deep breathing, he also experiences cough on deep breathing Abdomen soft Lower extremity trace edema Whitman catheter with concentrated urine to be removed today EOMI, PERRLA Nonfocal neuro exam Urinary Catheter Management^: Whitman: Cath Placed During This Visit: yes, but has since been removed by the nurse Reason for Continuing Indwelling Catheter: Not indwelling catheter Urinary Catheter Date of Insertion: 04/25/21 Urinary Catheter Time of Insertion: 11:00 Date Urinary Catheter Removed: 04/26/21 Time Urinary Catheter Discontinued: 10:35 Data : 04/26/21 04:36 04/26/21 04:36 Micro: Microbiology 04/25/21 11:30 Urine Culture - Preliminary Urine,Clean Catch Enterococcus species 04/25/21 14:07 Gram Stain - Final Sputum - Endotracheal Tube Aspirate Sputum Culture - Preliminary 04/25/21 17:22 Blood Culture - Preliminary Blood SPECIMEN COLLECTED 04/25/21 17:08 Blood Culture - Preliminary Blood SPECIMEN COLLECTED 04/25/21 14:07 MRSA Culture - Final Nose A&P Assessment and plan (1) Prolonged QT interval: Status: Acute (2) Atrial fibrillation: Status: Acute (3) Pneumonia: Status: Acute (4) Cardiomyopathy: Status: Acute (5) Cardiac arrest: Status: Acute (6) Chest pain: Status: Acute Qualifiers: Chest pain type: chest pain due to myocardial ischemia Ischemic chest pain type: unstable angina pectoris Qualified Code(s): I20.0 - Unstable angina (7) Sustained VT (ventricular tachycardia): Status: Acute (8) Congestive heart failure: Status: Acute (9) Hypertension: Status: Acute Additional A&P Information Cardiac arrest Unstable V. tach in ER, he was cardioverted twice at 200 J, patient converted to asystole after 2nd cardioversion from asystole converted to V. fib &after administration of epinephrine, atropine bicarb and amiodarone and 3rd cardioversion atrial rhythm was obtained CPR was continued for about 10 minutes He was taken to the [facility] Administrative Assistant, no significant blockage/stenosis noted He was returned to ICU, extubated on 04/25 to 3 L nasal cannula This morning he saturating well on room air Finished amiodarone gtt. Requested D-dimer to rule out PE Patient did receive 200-240 cc of contrast during cath yesterday I would do CTA chest tomorrow he is already anticoagulated therapeutically Awaiting AICD placement by Dr. Dimaond For QT prolongation received mag today magnesium 1.9, potassium normal, discontinue amiodarone, Dr. Sen recommended mexiletine 200 mg every 8 hours and metoprolol 12.5 twice daily which can be increased to 25 twice daily if he stays hemodynamically stable We will touch base with pharmacy as well Chest x-ray consistent with mild interstitial edema left lower lobe pneumonia not excluded noticed leukocytosis which could be stress leukemoid reaction, he has been afebrile, I would continue his antibiotics for now Cardiomyopathy with EF 35 to 40%, clinically does not look to be in fluid overload state can start Lasix at lower dose Full code Remove Whitman catheter currently today 3L nasal cannula discontinued saturating well on room air Cardiac diet He is fully anticoagulated Attestations Medical Necessity Statement*: Continue ICU management Time Spent in Patient Care: Greater than 35 minutes Coding Level of Care Code Acute Vault Worker for Chg Fwd Diagnoses Prolonged QT interval R94.31 Atrial fibrillation I48.91 Pneumonia J18.9 Cardiomyopathy I42.9 Cardiac arrest I46.9 Chest pain I20.0 Chest pain type: chest pain due to myocardial ischemia Ischemic chest pain type: unstable angina pectoris Sustained VT (ventricular tachycardia) I47.2 Congestive heart failure I50.9 Hypertension I10
--- NOTE | 2021-04-26 15:29 | PC.NURSE ---
assisted out of bed with c/o lots of pain on movement. oxy ir on board. ambulated from room to icu 5 and back to chair. tol. shahid.
--- NOTE | 2021-04-26 16:25 | PC.NURSE ---
attempted to use urinal prior to ambulation. voided minimal amt.
--- NOTE | 2021-04-26 16:44 | PC.NURSE ---
encouraged to sit up until supper time. coughing not as frequent.
--- NOTE | 2021-04-26 17:33 | PC.NURSE ---
daughter called back concerned about her dads c/o dizziness, while they were visiting. stated when he was having the irregular heart beats {coupletts, pvcs.}his eyes would roll back and he would close his eyes just very briefly, then he would open them and be fine. assured her i would put him back to bed as soon as he was through eating.
--- NOTE | 2021-04-26 18:22 | PC.NURSE ---
returned to bed, after voiding 100cc. very painful prodctive cough of tenacious thick krishna sputum.
[2021-04-26] MEDS: metoprolol tartrate 25 mg Tablet 12.5 MG PO (20:04)
[2021-04-26] MEDS: MEXILETINE 200 MG 200 EACH PO (23:48)
[2021-04-27] VITALS (58 sets, daily range): BP systolic 113–169; BP diastolic 56–101; PULSE 56–88; RESP 13–26; TEMP 36.4–37.2; O2SAT 83–97
[2021-04-27] MEDS: morphine 4 mg/mL SDV 1 mL 2 MG IVP ×2 (00:12→08:19)
[2021-04-27 03:25] LABS: Basophils % 0.2 %; Eosinophils # 0.1 10^3/uL (0.0-0.8); Eosinophils % 0.6 %; Hemoglobin 11.1 g/dL (11.7-16.6); Lymphocytes # 1.5 10^3/uL (0.8-4.8); Lymphocytes % 13.3 %; Mean Corpuscular HGB Conc 32.6 g/dL (30.0-36.0); Mean Corpuscular Hemoglobin 31.3 pg (28.0-34.0); Mean Corpuscular Volume 95.8 fl (80-94); Mean Platelet Volume 9.8 fL (7.4-10.4); Monocytes # 0.9 10^3/uL (0.2-0.9); Monocytes % 7.8 %; Neutrophils % 77.7 %; Nucleated Red Blood Cells % 0 %; Platelet Count 220 10^3/cmm (130-400); Red Blood Count 3.55 10^6/uL (4.1-5.3); Red Cell Distribution Width 13.5 % (12.1-15.1); White Blood Count 10.9 10^3/uL (4.0-10.0)
[2021-04-27] MEDS: HYDROmorphone 1 mg/mL INJ 1 mL IVP ×2 (03:29→22:10)
[2021-04-27] MEDS: oxyCODONE 5 mg IR Tab/Cap PO ×2 (03:30→11:24)
[2021-04-27] MEDS: vancomycin 1,250 MG/250 ML PIGGYBACK 250 MG IV ×2 (03:31→16:07)
--- NOTE | 2021-04-27 03:44 | PC.NURSE ---
Patient complaining of several episodes of pain this shift. Gave pain medication per MAR and orders. Continue care.
[2021-04-27 03:52] LABS: Anion Gap 13.2 (5-19); Blood Urea Nitrogen 10 mg/dL (8-23); Calcium 8.7 mg/dL (8.5-10.5); Carbon Dioxide 20 mmol/L (22-29); Chloride 105 mmol/L (98-107); Glucose 104 mg/dL (65-115); Magnesium 1.9 mg/dL (1.7-2.3); Osmolality Calculated 277 mOsm/kg (285-295); Potassium 4.2 mmol/L (3.5-5.1); Sodium 134 mmol/L (136-145)
[2021-04-27 03:54] LABS: Vancomycin Trough 8.2 ug/mL (10-15)
[2021-04-27 04:54] LABS: Procalcitonin 0.16 ng/mL (0-0.5)
[2021-04-27] MEDS: piperacillin-tazobactam 3.375 GM in sodium chloride 0.9% (plus) 50 ML IV ×3 (04:55→20:19)
--- NOTE | 2021-04-27 07:00 | CTR_ITS ---
PROCEDURE INFORMATION: Exam: CTA Chest With Contrast Exam date and time: 04/27/2021 7:00 AM Age: 85 years old Clinical indication: Intercostal and sternal or substernal pain; Additional info: Cardiac arrest TECHNIQUE: Imaging protocol: Computed tomographic angiography of the chest with contrast. 3D rendering (Not supervised by radiologist): MIP and/or 3D reconstructed images were created by the technologist. Radiation optimization: All CT scans at this facility use at least one of these dose optimization techniques: automated exposure control; mA and/or kV adjustment per patient size (includes targeted exams where dose is matched to clinical indication); or iterative reconstruction. Contrast material: OMNIPAQUE 350; Contrast volume: 70 ml; Contrast route: INTRAVENOUS (IV); COMPARISON: XR CHEST 04/26/2021 12:12 PM RADIATION DOSE METRICS: Total DLP (mGy-cm): 598.97 FINDINGS: Pulmonary arteries: No sign of acute pulmonary embolism. There is a single thin web-like filling defect in the right intralobar artery, adherent to the wall of the pulmonary artery, which would be compatible with residual change from a remote prior embolic episode. Aorta: The thoracic aorta is atherosclerotic. No thoracic aortic aneurysm or displaced intimal calcifications. Lungs: Mild bilateral lower lobe atelectasis. Pleural spaces: Small right pleural effusion. Trace left pleural effusion. No pneumothorax. Heart: The heart is enlarged. No pericardial effusion. There is coronary artery disease. The RV/LV ratio is approximately 0.8. Lymph nodes: No pathologically enlarged lymph nodes. Small calcified right hilar lymph node from prior granulomatous disease. Bones/joints: There is diffuse idiopathic skeletal hyperostosis. Soft tissues: No acute soft tissue abnormality. CT/CT angio chest PE protcl [id number] IMPRESSION: 1. No sign of acute pulmonary embolism. 2. Cardiomegaly. Coronary artery disease. Radiation Dose CTDIVOL = (mGy): DLP = 598.97 (mGy-cm)
[2021-04-27] MEDS: iohexol 350 mg/mL 100 mL Btl IV (08:56)
[2021-04-27] MEDS: metoprolol tartrate 25 mg Tablet 12.5 MG PO ×2 (09:06→20:20)
[2021-04-27] MEDS: atorvastatin 40 mg Tablet 80 MG PO (09:07)
[2021-04-27] MEDS: clopidogrel 75 mg Tablet PO (09:07)
[2021-04-27] MEDS: FUROsemide 20 mg Tablet PO (09:07)
[2021-04-27] MEDS: MEXILETINE 200 MG 200 EACH PO (09:07)
[2021-04-27] MEDS: acetaminophen-codeine 120-12 mg/5 mL UDC 2.5 ML PO ×2 (09:08→17:35)
[2021-04-27] MEDS: pantoprazole 40 mg SDV IVP (09:08)
[2021-04-27] MEDS: apixaban 5 mg Tablet PO ×2 (09:15→20:20)
--- NOTE | 2021-04-27 11:44 | ECG_ITS ---
[facility] Test Date: 2021-04-27 Pat Name: Jesus Saucedo Department: Room: ICU02 Gender: Male Steno Typist: : 1935 Requested By: Charley Covington Order Number: [id number] Anders MD: Mike Gonzalez M.D. Measurements Intervals [place] Rate: 70 P: [place]: QRS: -14 QRSD: 122 T: 191 QT: 450 QTc: 487 Interpretive Statements ATRIAL FIBRILLATION MODERATE T-WAVE ABNORMALITY, CONSIDER LATERAL ISCHEMIA [-0.1+ mV T-WAVE IN I/aVL/V5/V6] Compared to ECG 04/25/2021 14:59:54 T-wave abnormality now present Possible ischemia now present Intraventricular conduction delay no longer present Left ventricular hypertrophy no longer present ST (T wave) deviation no longer present Prolonged QT interval no longer present Electronically Signed On 04-27-2021 18:41:32 CDT by Mike Gonzalez M.D. [id number]
--- NOTE | 2021-04-27 12:15 | PM.PN ---
Subjective Subjective: Interval history: Seen and examined this morning. Patient was sitting up in his recliner feeling well. He had no acute events overnight and did not complain of any issues. However he did state that every time he coughs it hurts on the right side of his chest. He feels as if the had broken a rib related to CPR. Otherwise chest pain does not occur at rest. He is aware that he will be evaluated for ICD tomorrow by Dr. Diamond. Vitals/I&O/Wt Last Vital Signs Temp 97.8 F 04/27/21 10:00 Pulse 73 04/27/21 10:00 Resp 17 04/27/21 11:24 BP 137/82 04/27/21 10:00 Pulse Ox 94 04/27/21 11:24 04/26/21 04/27/21 04/27/21 22:59 06:59 14:59 Intake Total 400 / 1218 330 / 1548 440 / 440 Output Total 275 / 505 375 / 375 Balance 400 / 988 55 / 1043 65 / 65 Weight last 48 hrs Weight 95.878 kg Weight 81.853 kg Physical Exam Narrative: EXAM NARRATIVE: General: Alert oriented x3, patient seen sitting up in recliner appearing very comfortable. Vitals stable on monitor at bedside. HEENT: Normocephalic, atraumatic, EOMI, breathing comfortably. Cardio: Regular rate rhythm, normal S1-S2, no murmurs rubs gallops, Respiratory: Good bilateral air entry, no wheezes no rhonchi appreciated GI: Abdomen soft, nontender, nondistended, bowel sounds + Behavior: Appropriate and cooperative Extremities: Trace lower extremity edema present., no cyanosis Urinary Catheter Management^: Whitman: Cath Placed During This Visit: yes, but has since been removed by the nurse Reason for Continuing Indwelling Catheter: Accurate Measurement of Urinary Output in Critically Ill Patients Urinary Catheter Date of Insertion: 04/25/21 Urinary Catheter Time of Insertion: 11:00 Date Urinary Catheter Removed: 04/26/21 Time Urinary Catheter Discontinued: 11:00 Data : 04/27/21 02:40 04/27/21 02:40 Micro: Microbiology 04/25/21 14:07 Gram Stain - Final Sputum - Endotracheal Tube Aspirate Sputum Culture - Final 04/25/21 17:22 Blood Culture - Preliminary Blood NEGATIVE TO DATE 04/25/21 17:08 Blood Culture - Preliminary Blood NEGATIVE TO DATE 04/25/21 11:30 Urine Culture - Preliminary Urine,Clean Catch Enterococcus species A&P Assessment and plan (1) Prolonged QT interval: Status: Acute (2) Atrial fibrillation: Status: Acute (3) Pneumonia: Status: Acute (4) Cardiomyopathy: Status: Acute (5) Cardiac arrest: Status: Acute (6) Chest pain: Status: Acute Qualifiers: Chest pain type: chest pain due to myocardial ischemia Ischemic chest pain type: unstable angina pectoris Qualified Code(s): I20.0 - Unstable angina (7) Sustained VT (ventricular tachycardia): Status: Acute (8) Congestive heart failure: Status: Acute (9) Hypertension: Hold meds secondary hypotension. Status: Acute Additional A&P Information #Cardiac arrest Unstable V. tach in ER, he was cardioverted twice at 200 J, patient converted to asystole after 2nd cardioversion from asystole converted to V. fib &after administration of epinephrine, atropine bicarb and amiodarone and 3rd cardioversion atrial rhythm was obtained CPR was continued for about 10 minutes He was taken to the [employer] [facility], no significant blockage/stenosis noted He was returned to ICU, extubated on 04/25 to 3 L nasal cannula This morning he saturating well on room air Finished amiodarone gtt. D-Dimer elevated. CTA ruled out PE 04/27 Awaiting AICD placement by Dr. Diamond 04/27: For QT prolongation: On mexelitine but was having blurry vision and feeling tremulous. Held afternoon dose after discussing with Dr. Sen. He will evaluate patient and dose adjust. Nurse notified. 04/26: Dr. Sen recommended mexiletine 200 mg every 8 hours and metoprolol 12.5 twice daily which can be increased to 25 twice daily if he stays hemodynamically stable. Continue antibiotics for now. Cardiomyopathy with EF 35 to 40%, clinically does not look to be in fluid overload state. Will consider starting lasix at lower dose in AM. Full code Cardiac diet DVT PPX: Patient on Eliquis. Attestations Medical Necessity Statement*: > 24 hours of hospital stay Time Spent in Patient Care: less than 15 minutes Coding Level of Care Code Acute Retail Management Trainee for [facility] Diagnoses Prolonged QT interval R94.31 Atrial fibrillation I48.91 Pneumonia J18.9 Cardiomyopathy I42.9 Cardiac arrest I46.9 Chest pain I20.0 Chest pain type: chest pain due to myocardial ischemia Ischemic chest pain type: unstable angina pectoris Sustained VT (ventricular tachycardia) I47.2 Congestive heart failure I50.9 Hypertension I10
--- NOTE | 2021-04-27 13:00 | PC.NURSE ---
All care and documentation provided by student nurse Alejandra Wu was directly supervised by this nurse.
--- NOTE | 2021-04-27 15:00 | PM.PN ---
Subjective Subjective: Interval history: Patient is overall doing well. He was started on mexiletine however had adverse effects from it including shaking, vision disturbance and nausea. No more VT episodes. Vitals/I&O/Wt Last Vital Signs Temp 98.1 F 04/27/21 14:30 Pulse 70 04/27/21 14:44 Resp 21 H 04/27/21 14:30 BP 143/69 04/27/21 14:30 Pulse Ox 95 04/27/21 14:30 04/27/21 04/27/21 04/27/21 06:59 14:59 22:59 Intake Total 330 / 1548 440 / 440 Output Total 275 / 505 700 / 700 Balance 55 / 1043 -260 / -260 Weight last 48 hrs Weight 211 lb 6 oz Weight 180 lb 7.279 oz Physical Exam Narrative: EXAM NARRATIVE: NARRATIVE: Alert and oriented x3 NECK: No jugular vein distension. [] HEENT: No cyanosis. No icterus. No pallor. [] HEART: Normal rate and rhythm, S1+S2, grade 2/6 systolic murmur LUNGS: Mild crackles ABDOMEN: Soft, nontender and nondistended. Positive bowel sounds. No guarding, rebound or tenderness. [] CENTRAL NERVOUS SYSTEM: Alert and oriented x 3 EXTREMITIES: Lower extremities with 1+ edema bilaterally. Pulses palpable in the lower extremities, both dorsalis pedis and posterior tibial. [] Urinary Catheter Management^: Wihtman: Cath Placed During This Visit: yes, but has since been removed by the nurse Reason for Continuing Indwelling Catheter: Accurate Measurement of Urinary Output in Critically Ill Patients Urinary Catheter Date of Insertion: 04/25/21 Urinary Catheter Time of Insertion: 11:00 Date Urinary Catheter Removed: 04/26/21 Time Urinary Catheter Discontinued: 11:00 Data : 04/28/21 03:09 04/28/21 03:09 Micro: Microbiology 04/25/21 14:07 Gram Stain - Final Sputum - Endotracheal Tube Aspirate Sputum Culture - Final 04/25/21 17:22 Blood Culture - Preliminary Blood NEGATIVE TO DATE 04/25/21 17:08 Blood Culture - Preliminary Blood NEGATIVE TO DATE 04/25/21 11:30 Urine Culture - Preliminary Urine,Clean Catch Enterococcus species A&P Assessment and plan (1) Sustained VT (ventricular tachycardia): Status: Acute (2) Coronary artery disease: Status: Acute (3) Congestive heart failure: Status: Acute (4) Hypertension: Status: Acute (5) Cardiomyopathy: Status: Acute (6) Atrial fibrillation: Status: Acute (7) Prolonged QT interval: Status: Acute Patient has presented with ventricular tachycardia. Given his recent stents he underwent coronary angiogram that showed patent LAD stent. RCA stents were ostial in location and difficult to engage with the guide catheter. Possible haziness seen in the stent. Given IVUS nonavailability, we proceeded with balloon angioplasty of the stent to ensure excellent flow. VT unlikely to be ischemic in nature as overall patient has good coronary blood supply. It could be secondary to prior scar, prolonged QTc or idiopathic. As patient has 2 episodes of sustained ventricular tachycardia in last 2-3 weeks, requiring cardioversion, we will recommend placement of ICD. This will also allow us to increase the dose of beta blockers/anti-arrhthmics as he is bradycardic at baseline. Will consult Dr Diamond for ICD placement on Wednesday. EKG showing prolonged QTc. Amiodarone was stopped and mexiletine started. However patient did not tolerate mexiletine secondary to adverse effects. That has been held. Uptitrate metoprolol. Continue Eliquis 5 mg twice daily and plavix 75 daily ECHO shows reduction of EF to 35-40% from 40-45% on last echocardiogram Keep Mg >2, K > 4 Thank you for involving us with care of this patient. We will continue to follow. Please call with questions. Attestations Medical Necessity Statement*: Care expected to cross 2 midnights. Coding Level of Care Code Acute Electro Mechanical Technician for [facility] Zelaya Diagnoses Sustained VT (ventricular tachycardia) I47.2 Coronary artery disease I25.10 Congestive heart failure I50.9 Hypertension I10 Cardiomyopathy I42.9 Atrial fibrillation I48.91 Prolonged QT interval R94.31
--- NOTE | 2021-04-27 19:10 | PC.NURSE ---
Shift Note Frequent safety and comfort rounds continue. Orders and/or nursing care completed as indicated. Patient monitored for response to intervention and treatment(s). Education provided includes upcoming procedures, care plan, and medications. Patient and/or packaging sales representative verbalized understanding. Patient spent most of day up in chair with family at beside. Patient ambulated today and tolerated well. Patient received pain mediation in the morning and did not require any more pain medication until the evening.
[2021-04-28] VITALS (38 sets, daily range): BP systolic 119–182; BP diastolic 67–112; PULSE 55–100; RESP 16–25; TEMP 36.5–36.9; O2SAT 70–97; BMI 28.3
[2021-04-28] MEDS: HYDROmorphone 1 mg/mL INJ 1 mL IVP ×3 (04:21→20:54)
[2021-04-28 04:25] LABS: Basophils % 0.3 %; Eosinophils # 0.2 10^3/uL (0.0-0.8); Eosinophils % 2.1 %; Hematocrit 34.2 % (42.0-52.0); Hemoglobin 11.2 g/dL (11.7-16.6); Lymphocytes # 1.4 10^3/uL (0.8-4.8); Lymphocytes % 17.3 %; Mean Corpuscular HGB Conc 32.7 g/dL (30.0-36.0); Mean Corpuscular Hemoglobin 31.6 pg (28.0-34.0); Mean Corpuscular Volume 96.6 fl (80-94); Mean Platelet Volume 9.8 fL (7.4-10.4); Monocytes # 0.8 10^3/uL (0.2-0.9); Monocytes % 9.9 %; Neutrophils # 5.57 10^3/uL (1.8-7.7); Neutrophils % 70.1 %; Nucleated Red Blood Cells % 0 %; Platelet Count 217 10^3/cmm (130-400); Red Blood Count 3.54 10^6/uL (4.1-5.3); Red Cell Distribution Width 13.3 % (12.1-15.1); White Blood Count 7.9 10^3/uL (4.0-10.0)
--- NOTE | 2021-04-28 04:32 | ECG_ITS ---
[facility] Test Date: 2021-04-28 Pat Name: Jesus Saucedo Department: Room: ICU02 Gender: Male General Office Clerk: : [id number] Requested By: Anna Diaz Order Number: [id number] Anders MD: Mike Gonzalez M.D. Measurements Intervals [place] Rate: 89 P: [place]: QRS: 7 QRSD: 118 T: -9 QT: 335 QTc: 409 Interpretive Statements Atrial fibrillation with a frequent PVCs. ST-T changes, may assess anterolateral ischemia ABNORMAL RHYTHM ECG Compared to ECG 04/27/2021 13:18:27 No significant changes Electronically Signed On 04-28-2021 23:39:54 CDT by Mike Gonzalez M.D. [id number]
[2021-04-28 04:40] LABS: Glucose Point of Care 107 mg/dL (70-110)
--- NOTE | 2021-04-28 04:50 | PM.MISC ---
Miscellaneous Note Purpose of Documentation: V Tach Note: Called by RN that patient had changed to SVT on monitor at 4:17AM. He had already received 6mg and then 12 mg iv Adenosine at 4:22 and 4:23 by the time of my assessment. BP 193/93mmhg at time of onset of symptoms. Rhythm on monitor and telemetry per my read was Vtach, stable with pulse, HR 190bpm, alert and awake, c/o chest pain , BP 106/76 mmHg. Then received 150mg iv amiodarone at 4:25AM. Converted to sinus rhythm with frequent VPCs at 4:30pm. 12 lead EKG taken. Qtc interval 382msec. Chest pain improved. Started on amiodarone infusion at 1mg/min. Pending electrolytes including K and Mag at this time. Dr. Sen updated.
[2021-04-28 04:59] LABS: Anion Gap 13.5 (5-19); Blood Urea Nitrogen 10 mg/dL (8-23); Calcium 8.4 mg/dL (8.5-10.5); Carbon Dioxide 23 mmol/L (22-29); Chloride 104 mmol/L (98-107); Glucose 93 mg/dL (65-115); Magnesium 1.7 mg/dL (1.7-2.3); Osmolality Calculated 283 mOsm/kg (285-295); Potassium 3.5 mmol/L (3.5-5.1); Sodium 137 mmol/L (136-145)
--- NOTE | 2021-04-28 05:00 | PC.NURSE ---
Patient went into SVT at 0417 for approximately 10 minutes with a sustained heart rate between 195-200 bpm. The patient was hooked up to the zoll monitor on the crash cart, and 6mg of adenosine was administered with no success. Another 12 mg. of adenosine was administered followed by 150 mg of Amiodarone. A stat EKG was performed, and the heart rated steadily decreased. The results of the EKG showed a normal sinus rhythm. An amiodarone drip was started 0440 at 1mg/min. During the SVT episode the patient remained awake and alert. Additionally, the patient was started on 2L nasal cannula and a dose of dilaudid 1 mg was administered at 0421. Dr. Diaz came quickly to the bedside once notified that the SVT had started. Patient currently denies any pain.
--- NOTE | 2021-04-28 05:24 | PC.NURSE ---
Cherie Chandler (granddaughter) was notified at 0524 of her grandfather's SVT episode that took place at 0417 this morning.
[2021-04-28] MEDS: vancomycin 1,250 MG/250 ML PIGGYBACK 250 MG IV ×2 (05:40→16:28)
[2021-04-28] MEDS: piperacillin-tazobactam 3.375 GM in sodium chloride 0.9% (plus) 50 ML IV ×3 (05:43→20:54)
[2021-04-28] MEDS: lidocaine 1% 5 ML in potassium chloride premix 100 ML 25 ML IV (05:45)
--- NOTE | 2021-04-28 08:20 | P.PN_ITS ---
Subjective Subjective: Interval history: Seen and examined this morning. Acute overnight events noted. Patient went into V. tach around 4 in the morning was given amiodarone load and then placed on a drip. Mexiletine has not been given since yesterday due to his side effect symptoms. I discussed with cardiology this morning we can keep him off the mexiletine and continue with the amiodarone drip. He will also be evaluated for ICD placement today. Vitals/I&O/Wt Last Vital Signs Temp 98.2 F 04/28/21 04:00 Pulse 85 04/28/21 07:30 Resp 25 H 04/28/21 07:30 BP 159/91 04/28/21 07:30 Pulse Ox 92 04/28/21 07:30 04/27/21 04/28/21 04/28/21 22:59 06:59 14:59 Intake Total 1017 / 1457 352 / 1809 Output Total 125 / 825 650 / 1475 Balance 892 / 632 -298 / 334 Weight last 48 hrs Weight 92.334 kg Weight 95.878 kg Physical Exam Narrative: EXAM NARRATIVE: General: Alert oriented x3, seen laying in bed appearing very comfortable. HEENT: Normocephalic, atraumatic, EOMI, breathing comfortably. Cardio: Regular rate rhythm, normal S1-S2, no murmurs rubs gallops, Respiratory: Good bilateral air entry, no wheezes no rhonchi appreciated GI: Abdomen soft, nontender, nondistended, bowel sounds + Behavior: Appropriate and cooperative Extremities: Trace lower extremity edema present., no cyanosis Urinary Catheter Management^: Whitman: Cath Placed During This Visit: yes, but has since been removed by the nurse Reason for Continuing Indwelling Catheter: Accurate Measurement of Urinary Output in Critically Ill Patients Urinary Catheter Date of Insertion: 04/25/21 Urinary Catheter Time of Insertion: 11:00 Date Urinary Catheter Removed: 04/26/21 Time Urinary Catheter Discontinued: 11:00 Data : 04/28/21 03:09 04/28/21 03:09 Micro: Microbiology 04/25/21 11:30 Urine Culture - Final Urine,Clean Catch Enterococcus faecalis 04/25/21 14:07 Gram Stain - Final Sputum - Endotracheal Tube Aspirate Sputum Culture - Final A&P Assessment and plan (1) Prolonged QT interval: Status: Acute (2) Atrial fibrillation: Status: Acute (3) Pneumonia: Status: Acute (4) Cardiomyopathy: Status: Acute (5) Cardiac arrest: Status: Acute (6) Chest pain: Status: Acute Qualifiers: Chest pain type: chest pain due to myocardial ischemia Ischemic chest pain type: unstable angina pectoris Qualified Code(s): I20.0 - Unstable angina (7) Sustained VT (ventricular tachycardia): Status: Acute (8) Congestive heart failure: Status: Acute (9) Hypertension: Hold meds secondary hypotension. Status: Acute Additional A&P Information #Cardiac arrest #V.Tach Unstable V. tach in ER, he was cardioverted twice at 200 J, patient converted to asystole after 2nd cardioversion from asystole converted to V. fib &after administration of epinephrine, atropine bicarb and amiodarone and 3rd cardioversion atrial rhythm was obtained CPR was continued for about 10 minutes He was taken to the Software Release Manager, no significant blockage/stenosis noted He was returned to ICU, extubated on 04/25 to 3 L nasal cannula D-Dimer elevated. CTA ruled out PE 04/27 Awaiting AICD placement by Dr. Diamond Patient got 1 dose of insulin but started having blurry vision and feeling tremulous. The later doses were held. Overnight patient had an episode of V. tach at 4 in the morning and was given an amnio load and started on amiodarone drip. At this time we will continue the amiodarone drip as per cardiology recommendations. He will also be receiving an ICD tomorrow on 1:30 PM. We will do serial EKGs to monitor the QTC. Continue antibiotics for now. Cardiomyopathy with EF 35 to 40%, clinically does not look to be in fluid overload state. Full code Cardiac diet DVT PPX: Patient on Eliquis. Patient has requested that I call his daughter for an update and I will be calling her today. Attestations Medical Necessity Statement*: Will require further inpatient stay due to ICD placement tomorrow and monitoring of his arrhythmia. Time Spent in Patient Care: 16 - 35 minutes Coding Level of Care Code Acute Pattern Keeper for [employer] Diagnoses Prolonged QT interval R94.31 Atrial fibrillation I48.91 Pneumonia J18.9 Cardiomyopathy I42.9 Cardiac arrest I46.9 Chest pain I20.0 Chest pain type: chest pain due to myocardial ischemia Ischemic chest pain type: unstable angina pectoris Sustained VT (ventricular tachycardia) I47.2 Congestive heart failure I50.9 Hypertension I10
--- NOTE | 2021-04-28 08:35 | PC.SOCIAL ---
IMM update IMM updated with patient. Verbalized an understanding. Copy Pg 2 provided. Initialled, dated, timed, and placed in chart.
[2021-04-28] MEDS: FUROsemide 20 mg Tablet PO (08:46)
--- NOTE | 2021-04-28 08:47 | P.PN_ITS ---
Subjective Subjective: Interval history: Patient had episode of V. tach this morning. Resolved after receiving amiodarone. He is overall doing well. Plan for ICD placement tomorrow. Vitals/I&O/Wt Last Vital Signs Temp 98.2 F 04/28/21 04:00 Pulse 85 04/28/21 07:30 Resp 25 H 04/28/21 07:30 BP 159/91 04/28/21 07:30 Pulse Ox 92 04/28/21 07:30 04/27/21 04/28/21 04/28/21 22:59 06:59 14:59 Intake Total 1017 / 1457 352 / 1809 Output Total 125 / 825 650 / 1475 Balance 892 / 632 -298 / 334 Weight last 48 hrs Weight 203 lb 9 oz Weight 211 lb 6 oz Physical Exam Narrative: EXAM NARRATIVE: NARRATIVE: Alert and oriented x3 NECK: No jugular vein distension. [] HEENT: No cyanosis. No icterus. No pallor. [] HEART: Normal rate and rhythm, S1+S2, grade 2/6 systolic murmur LUNGS: Mild crackles ABDOMEN: Soft, nontender and nondistended. Positive bowel sounds. No guarding, rebound or tenderness. [] CENTRAL NERVOUS SYSTEM: Alert and oriented x 3 EXTREMITIES: Lower extremities with 1+ edema bilaterally. Pulses palpable in the lower extremities, both dorsalis pedis and posterior tibial. [] Urinary Catheter Management^: Whitman: Cath Placed During This Visit: yes, but has since been removed by the nurse Reason for Continuing Indwelling Catheter: Accurate Measurement of Urinary Output in Critically Ill Patients Urinary Catheter Date of Insertion: 04/25/21 Urinary Catheter Time of Insertion: 11:00 Date Urinary Catheter Removed: 04/26/21 Time Urinary Catheter Discontinued: 11:00 Data : 04/30/21 04:27 04/30/21 04:27 Micro: Microbiology 04/25/21 11:30 Urine Culture - Final Urine,Clean Catch Enterococcus faecalis 04/25/21 14:07 Gram Stain - Final Sputum - Endotracheal Tube Aspirate Sputum Culture - Final A&P Assessment and plan (1) Sustained VT (ventricular tachycardia): Status: Acute (2) Coronary artery disease: Status: Acute (3) Congestive heart failure: Status: Acute (4) Hypertension: Status: Acute (5) Cardiomyopathy: Status: Acute (6) Atrial fibrillation: Status: Acute (7) Prolonged QT interval: Status: Acute Patient has presented with ventricular tachycardia. Given his recent stents he underwent coronary angiogram that showed patent LAD stent. RCA stents were ostial in location and difficult to engage with the guide catheter. Possible haziness seen in the stent. Given IVUS nonavailability, we proceeded with balloon angioplasty of the stent to ensure excellent flow. VT unlikely to be ischemic in nature as overall patient has good coronary blood supply. It could be secondary to prior scar, prolonged QTc or idiopathic. As patient has 2 episodes of sustained ventricular tachycardia in last 2-3 weeks, requiring cardioversion, we will recommend placement of ICD. This will also allow us to increase the dose of beta blockers/anti-arrhthmics as he is bradycardic at baseline. Will consult Dr Diamond for ICD placement on Wednesday. EKG showing prolonged QTc. Amiodarone was stopped and mexiletine started. However patient did not tolerate mexiletine secondary to adverse effects. That has been held. We will uptitrate dose of metoprolol once ICD is in place. Continue Eliquis 5 mg twice daily and plavix 75 daily ECHO shows reduction of EF to 35-40% from 40-45% on last echocardiogram Keep Mg >2, K > 4 Thank you for involving us with care of this patient. We will continue to follow. Please call with questions. Attestations Medical Necessity Statement*: Care expected to cross 2 midnights. Coding Level of Care Code Acute Coin Wrapping Machine Operator for [facility] Diagnoses Sustained VT (ventricular tachycardia) I47.2 Coronary artery disease I25.10 Congestive heart failure I50.9 Hypertension I10 Cardiomyopathy I42.9 Atrial fibrillation I48.91 Prolonged QT interval R94.31
[2021-04-28] MEDS: pantoprazole 40 mg SDV IVP ×2 (09:10→09:14)
[2021-04-28] MEDS: mupirocin oint 22 gm 1 APPLIC NOSTRIL-B (09:14)
--- NOTE | 2021-04-28 09:26 | PC.CHAP ---
Pastoral Care Encounter/Spiritual Assessment Type of Contact [] Declined end finder twisting department visit [] Patient/Family/Request visit [] Outpatient visit [] Follow-up visit [] Physician referral [] Code/Alert [x] Routine visit [] Staff referral [] Actively dying [] Patient sleeping [] Family support [] [] Out of room [] Palliative care [] [] Receiving care in room [] Pre-surgical visit [] Trauma [] Long length of stay [x] ICU visit [] Other: Relational/Emotional Strength [] Patient feels connected with others/family/visitors/staff [] Distress [] Loneliness/isolation [] Abandonment Spirituality of Patient [] Person of Shy [] Attends Mormonism of their Shy [] Believes in Prayer [] Reads Bible or Jainism materials [] There are Spiritual issues to be addressed Relief Worker Interventions [x] Prayer [x] Active listening [x] Non-anxious presence [x] Spiritual/emotional support [] Crisis/trauma care [] Spiritual counseling [] Bereavement support [] Provided bereavement packet [] Provided Bible/devotional materials [] Provided toy/stuffed animal, coloring book to patient or family member [] Provided Communion [] Anointing/[place] [] Salvation [x] Completed spiritual assessment [] Other: Impact on Illness or Injury [] Angry [] Fearful [] Anxious [] Often cries [] Exhaustion [] Unable to work [] Unable to attend caodaism [] Unable to walk/stand [] Unable to read [] Unable to drive [] Unable to eat/drink [] Unable to sleep [] Unable to be with family [] Patient intubated [] Other: Summary confusion, as to what day, time and why he was in hospital Time spent with patient 5 min
[2021-04-28] MEDS: atorvastatin 40 mg Tablet 80 MG PO (09:45)
[2021-04-28] MEDS: metoprolol tartrate 25 mg Tablet PO ×2 (09:45→20:54)
[2021-04-28] MEDS: chlorhexidine gluconate 4% Btl 118 mL 1 APPLIC TOPICAL ×2 (09:46→18:24)
--- NOTE | 2021-04-28 13:00 | ECG_ITS ---
[facility] Test Date: 2021-04-28 Pat Name: Jesus Saucedo Department: Room: ICU02 Gender: Male Licensed Retail Supervisor: : 1935 Requested By: Charley Covington Order Number: [id number] Anders MD: Mike Gonzalez M.D. Measurements Intervals [place] Rate: 61 P: [place]: QRS: -3 QRSD: 110 T: 196 QT: 424 QTc: 428 Interpretive Statements ATRIAL FIBRILLATION ST DEVIATION AND MODERATE T-WAVE ABNORMALITY, CONSIDER LATERAL ISCHEMIA [-0.1+ mV T-WAVE IN I/aVL/V5/V6] Compared to ECG 04/28/2021 04:34:39 T-wave abnormality now present Possible ischemia now present Ventricular-paced complex(es) or rhythm no longer present Electronically Signed On 04-28-2021 23:56:20 CDT by Mike Gonzalez M.D. [id number]
[2021-04-28] MEDS: morphine 4 mg/mL SDV 1 mL 2 MG IVP (13:45)
--- NOTE | 2021-04-28 14:30 | PC.NURSE ---
[address] Oshea of HR in 50-60 and occasionally upper 40s He says to leave Amnio gtt on unless HR constissitly in 40's then call again.
[2021-04-28 16:13] LABS: Vancomycin Trough 14.1 ug/mL (10-15)
[2021-04-28] MEDS: clopidogrel 75 mg Tablet PO (18:24)
--- NOTE | 2021-04-28 18:25 | PM.CONSULT ---
Providers/Reason For Consult Consulting Physician/Specialty*: Dr. Diamond/cardiothoracic surgery Reason for Consult*: AICD implantation Requesting Physician: Dr. Sen Attending Physician: Charley Covington MD Primary Care Provider: Gene Peralta History of Present Illness History of Present Illness Jesus Saucedo is an 85 year old male currently in ICU bed 2. He was admitted on April 25 complaining of dyspnea and was found to be in V. tach with accelerated rate of over 200. Attempted cardioversion resulted in ventricular fibrillation which required CPR per ACLS protocol. He received amiodarone, epinephrine, atropine, and bicarb. Subsequently developed sinus rhythm. He then was intubated for airway protection and taken to the catheterization laboratory for evaluation prior stenting of the LAD and RCA performed on April 11 during her ER presentation with subsequent ventricular fibrillation. Stents were found to be patent. Given has had 2 episodes of V. tach/V. fib in the past 3 weeks with subsequent CPR and cardioversion, Dr. Sen feels Mr. Holloway would benefit from AICD implantation. He is in agreement. Currently he is in a sinus rhythm though he has had recurrent A. fib. He has been on Plavix, and Eliquis. Eliquis has been discontinued. I did hold his Plavix for 1 dose. He will receive a dose this afternoon and the morning dose will be held prior to AICD implantation. Review of Systems Const: Reports: fatigue; Denies: fever(s), chills, change in appetite, change in weight or night sweats Eyes: Denies: change in vision or blurry vision ENMT: Denies: odynophagia or hoarseness Card: Reports: chest pain (Prior CPR), palpitations, irregular heart rhythm, lightheadedness, pre-syncope and dyspnea on exertion; Denies: edema Resp: Reports: dyspnea; Denies: productive cough GI: Denies: abdominal pain, nausea, vomiting, dysphagia, heartburn or change in bowel habits : Denies: difficulty urinating, dysuria, urinary frequency, urinary urgency or urinary hesitancy Musc: Reports: neck pain; Denies: extremity pain or extremity swelling Skin/Breast: Denies: rash Neuro: Reports: headache(s) and difficulty walking; Denies: numbness in extremities, weakness in extremities or sensory changes Psych: Denies: anxiety, depression or change in appetite Endo: Denies: polyuria, polydipsia or cold intolerance Lyle/Lymph: Denies: easy bruising, easy bleeding, petechiae or enlarged lymph nodes Meds/Allergies Home Medications and Allergies Home Medications Medication Instructions Recorded Confirmed Last Taken Type ezetimibe 10 mg PO DAILY 04/12/21 04/25/21 Unknown History isosorbide mononitrate 30 mg PO DAILY 04/12/21 04/25/21 Unknown History nitroglycerin 0.4 mg SUBLINGUAL Q5MIN PRN 04/12/21 04/25/21 Unknown History potassium chloride 20 meq PO BID 04/12/21 04/25/21 Unknown History rosuvastatin 40 mg PO DAILY 04/12/21 04/25/21 Unknown History amlodipine 5 mg PO DAILY #90 tab 04/15/21 04/25/21 Unknown Rx apixaban [Eliquis] 5 mg PO BID@0900,2100 #90 tab 04/15/21 04/25/21 Unknown Rx clopidogrel 75 mg PO DAILY #90 tab 04/15/21 04/25/21 Unknown Rx furosemide 40 mg tablet 40 mg PO DAILY #90 tab 04/21/21 04/25/21 Unknown Rx losartan 100 mg tablet 150 mg PO DAILY #240 tab 04/21/21 04/25/21 Unknown Rx metoprolol tartrate 25 mg tablet 12.5 mg PO BID tab 04/21/21 04/25/21 Unknown History jm-oyp-tidrt acid-lutein [Centrum 1 tab PO DAILY 04/25/21 04/25/21 Unknown History Silver] mexiletine 200 mg PO TID 04/26/21 04/26/21 04/26/21 History Allergies Allergy/AdvReac Type Severity Reaction Status Date / Time JACKIE Inhibitors Allergy Unknown Unknown Verified 04/21/21 09:35 aspirin Allergy ALGY-Hives Verified 04/21/21 09:35 Current Medications Current Medications Generic Name Dose Route Start Last Admin Trade Name Freq PRN Reason Stop Dose Admin Acetaminophen 650 mg 04/25/21 12:06 04/25/21 16:45 Acetaminophen 325 Mg Tablet PO 650 mg Q6H PRN Administration MILD PAIN Acetaminophen/Codeine Phosphate 2.5 ml 04/25/21 22:40 04/27/21 17:35 Acetaminophen-Codeine 120-12 Mg/5 Ml Udc PO 2.5 ml Q8H PRN Administration MODERATE PAIN Atorvastatin Calcium 80 mg 04/26/21 09:00 04/28/21 09:45 Atorvastatin 40 Mg Tablet PO 80 mg DAILY RICARDO Administration Chlorhexidine Gluconate 1 applic 04/28/21 09:00 04/28/21 18:24 Chlorhexidine Gluconate 4% Btl 118 Ml TOPICAL 1 applic BID RICARDO Administration Furosemide 20 mg 04/27/21 08:00 04/28/21 08:46 Furosemide 20 Mg Tablet PO 20 mg DAILY@0800 RICARDO Administration Hydromorphone HCl 1 mg 04/25/21 20:11 04/28/21 08:58 Hydromorphone 1 Mg/Ml Inj 1 Ml IVP 1 mg Q6H PRN Administration pain Norepinephrine Bitartrate 4 mg 254 mls @ 0 mls/hr 04/25/21 12:00 04/25/21 13:50 / Dextrose IV 0 mcg/min .Q0M RICARDO 0 mls/hr Titration Protocol Per Protocol Piperacillin Sod/Tazobactam 50 mls @ 12.5 mls/hr 04/25/21 12:30 04/28/21 13:48 Sod 3.375 gm/ Sodium Chloride IV 12.5 mls/hr Q8H RICARDO Administration Protocol Vancomycin/PEG/NADA/Lysine/Water 1,250 mg in 250 mls @ 250 mls/hr 04/27/21 16:00 04/28/21 16:28 Vancocin IV 250 mls/hr Q12H RICARDO Administration Amiodarone HCl 900 mg/ 518 mls @ 0 mls/hr 04/28/21 04:30 04/28/21 11:00 Dextrose/ IV Miscellaneous IV 0.5 mg/min Supplies .Q0M RICARDO 17.27 mls/hr Titration Protocol Per Protocol Metoprolol Tartrate 25 mg 04/28/21 09:45 04/28/21 09:45 Metoprolol Tartrate 25 Mg Tablet PO 25 mg BID@0900,2100 RICARDO Administration Morphine Sulfate 2 mg 04/25/21 11:18 04/28/21 13:45 Morphine 4 Mg/Ml Sdv 1 Ml IVP 2 mg Q4H PRN Administration SEVERE PAIN Non-Formulary Medication 200 mg 04/26/21 17:15 04/27/21 09:07 Mexiletine PO 200 mg TID RICARDO Administration Oxycodone HCl 5 mg 04/25/21 16:52 04/27/21 11:24 Oxycodone 5 Mg Ir Tab/Cap PO 5 mg Q4H PRN Administration MODERATE PAIN Pantoprazole Sodium 40 mg 04/25/21 13:00 04/28/21 09:14 Pantoprazole 40 Mg Sdv IVP 40 mg DAILY RICARDO Administration PFSH Acute PFSH: Medical History Acute [place] Acute non-ST elevation myocardial infarction (NSTEMI) Atrial fibrillation Coronary artery disease Coronary artery disease Hyperlipidemia Hypertension Sustained VT (ventricular tachycardia) Ventricular tachycardia Surgical History Stented coronary artery Social History Smoking and tobacco status: never smoked Vitals/I&O/Wt Last Vital Signs Temp 98.4 F 04/28/21 14:00 Pulse 67 04/28/21 18:00 Resp 16 04/28/21 18:00 BP 138/75 04/28/21 18:00 Pulse Ox 97 04/28/21 18:00 04/28/21 04/28/21 04/28/21 06:59 14:59 22:59 Intake Total 352 / 1809 493.69 / 493.69 60 / 553.69 Output Total 650 / 1475 450 / 450 550 / 1000 Balance -298 / 334 43.69 / 43.69 -490 / -446.31 Weight last 48 hrs Weight 203 lb 9 oz Weight 211 lb 6 oz Physical Exam HENMT: COMMON NORMALS: normocephalic, atraumatic, hearing grossly normal bilaterally, external ears normal and Normal external nose present HEAD & SCALP: normocephalic and atraumatic NOSE: Normal external nose present EXTERNAL EAR: Yes external ears normal Neck/C-Spine: COMMON NORMALS: supple; negative for no lymphadenopathy GENERAL: Yes trachea midline, No anterior neck swelling and No tracheal deviation Chest: COMMONS NORMALS: negative for normal palpation of entire chest wall (Tenderness anteriorly) CHEST: Yes Symmetrical chest wall rise Resp: COMMON NORMALS: normal respiratory effort, No retractions and No use of accessory muscles EFFORT & INSPECTION: Yes able to speak in complete sentences and Yes symmetric chest movement AUSCULTATION: diminished lung sounds on the right in the lower lung ramirez Cardio: COMMON NORMALS: regular rate and S1 normal heart sound present JUGULAR VENOUS DISTENTION: no JVD PALPATION: abnormal PMI RATE: regular rate HEART SOUNDS: S1 normal heart sound present BRUITS: no abdominal aortic bruits PERIPHERAL PULSES: radial pulses present Extremity: COMMON NORMALS: no calf tenderness GENERAL: No cyanosis and Yes edema (Trace) Urinary Catheter Management^: Whitman: Cath Placed During This Visit: yes, but has since been removed by the nurse Reason for Continuing Indwelling Catheter: Accurate Measurement of Urinary Output in Critically Ill Patients Urinary Catheter Date of Insertion: 04/25/21 Urinary Catheter Time of Insertion: 11:00 Date Urinary Catheter Removed: 04/26/21 Time Urinary Catheter Discontinued: 11:00 Data Micro: Micro: Microbiology 04/25/21 11:30 Urine Culture - Fi nal Urine,Clean Catch Enterococcus fa ecalis A&P Assessment and plan (1) Sustained VT (ventricular tachycardia): Plan for AICD implantation tomorrow. Eliquis has been held. Dr. Sen is concerned of stent thrombosis, therefore Plavix will be continued. He will receive a dose this evening. Rationale for AICD implantation was discussed. All questions answered. He appears to have a good understanding. He will be at increased risk for wound and bleeding complication related to Plavix administration for his stents. Status: Acute Consult Attestations Medical Necessity Statement: Recurrent malignant ventricular arrhythmia requiring electrical cardioversion and CPR. AICD recommended Time Spent in Patient Care: 16 - 35 minutes Coding Level of Care Code Acute Adjunct Faculty Mathematics Department for [facility] Diagnoses Sustained VT (ventricular tachycardia) I47.2
[2021-04-28] MEDS: guaiFENesin-dextromethorphan UDC 10 mL 5 ML PO (20:58)
[2021-04-29] VITALS (27 sets, daily range): BP systolic 120–178; BP diastolic 62–106; PULSE 52–97; RESP 17–26; TEMP 36.7–37.7; O2SAT 90–98; BMI 28.3
--- NOTE | 2021-04-29 | SCC_ITS ---
Procedure Done: AICD implantation 52.6 seconds of fluoroscopic guidance, for a cumulative dose of 19.30 mGy, was provided to Dr. Diamond by the radiology department. C-arm images of the chest were saved for the patient's permanent record. MTDD
[2021-04-29] MEDS: vancomycin 1,250 MG/250 ML PIGGYBACK 250 MG IV (04:22)
[2021-04-29] MEDS: piperacillin-tazobactam 3.375 GM in sodium chloride 0.9% (plus) 50 ML IV ×3 (04:24→21:20)
[2021-04-29] MEDS: HYDROmorphone 1 mg/mL INJ 1 mL IVP ×2 (05:10→11:04)
--- NOTE | 2021-04-29 07:25 | P.PN_ITS ---
Subjective Subjective: Interval history: Awake on rounds. Other than the chest discomfort and soreness from his previous CPR, he has no other complaints. He is in good spirits. No concerns reported by nurses. No substantial arrhythmias reported. He did receive Plavix yesterday afternoon. I will hold his Plavix this morning for his planned AICD this afternoon. He will still be at an incre ased risk for bleeding complications, however given his recent coronary stenting, this seems to be the best balanced approach for stent protection and that hopefully allowing for decrease chance for hematoma or bleeding complications from his AICD implantation. Vitals/I&O/Wt Last Vital Signs Temp 98.3 F 04/29/21 04:00 Pulse 74 04/29/21 07:00 Resp 22 H 04/29/21 07:00 BP 164/90 04/29/21 07:00 Pulse Ox 91 04/29/21 07:00 04/28/21 04/29/21 04/29/21 22:59 06:59 14:59 Intake Total 360 / 853.69 659.31 / 1513.00 Output Total 550 / 1000 750 / 1750 Balance -190 / -146.31 -90.69 / -237.00 Weight last 48 hrs Weight 203 lb 9 oz Weight 203 lb 9 oz Physical Exam Chest: COMMONS NORMALS: normal inspection of the chest Resp: COMMON NORMALS: normal respiratory effort, No retractions and No use of accessory muscles EFFORT & INSPECTION: Yes able to speak in complete sentences and Yes symmetric chest movement Cardio: COMMON NORMALS: regular rate, regular rhythm, S1 normal heart sound present and No rub (Cardio) RATE: regular rate RHYTHM: regular rhythm HEART SOUNDS: S1 normal heart sound present Urinary Catheter Management^: Whitman: Cath Placed During This Visit: yes, but has since been removed by the nurse Reason for Continuing Indwelling Catheter: Accurate Measurement of Urinary Output in Critically Ill Patients Urinary Catheter Date of Insertion: 04/25/21 Urinary Catheter Time of Insertion: 11:00 Date Urinary Catheter Removed: 04/26/21 Time Urinary Catheter Discontinued: 11:00 Data : 04/28/21 03:09 04/28/21 03:09 A&P Assessment and plan (1) Sustained VT (ventricular tachycardia): Planned AICD implantation this afternoon. Given her recent coronary stenting, only 1 dose of Plavix has been held, which is this morning. He will have an increased risk for bleeding complications related to his antiplatelet therapy. Status: Acute Attestations Medical Necessity Statement*: Repetitive episodes of V. tach/V. fib. Planned AICD implantation. Time Spent in Patient Care: less than 15 minutes Coding Level of Care Code Acute Endodontic Assistant for [facility] Diagnoses Sustained VT (ventricular tachycardia) I47.2
--- NOTE | 2021-04-29 07:25 | PC.NURSE ---
Shift Note Frequent safety and comfort rounds continue. Orders and/or nursing care completed as indicated. Patient monitored for response to intervention and treatment(s). Education provided to patient and to the daughter via telephone. The patient has remained NPO in preparation for the scheduled surgery. Urine output was 750 mL, and the patient appeared to have less chest pain issues than the assembler 1st shift before. Robitussin was given once, and 1 mg of Dilaudid twice during the shift for pain. The patient was able to sleep some, once the bed had been laid flat. There were several times when the patient displayed episodes of confusion and tried to get out of bed. There were a couple of blood pressure readings where the SBP had read in the 160-170's. The only drip continually running as of now is Amiodarone. The patient has remained on room air with an oxygen saturation that has stayed in the low 90's, and lungs sound clear. Despite the confusion the patient is alert, and oriented to person, place, time, and situation.
[2021-04-29] MEDS: benzonatate 100 mg Capsule PO ×2 (07:54→21:53)
[2021-04-29] MEDS: FUROsemide 20 mg Tablet PO (07:55)
[2021-04-29] MEDS: atorvastatin 40 mg Tablet 80 MG PO (07:55)
[2021-04-29] MEDS: metoprolol tartrate 25 mg Tablet PO (07:55)
[2021-04-29] MEDS: pantoprazole 40 mg SDV IVP (07:55)
[2021-04-29] MEDS: chlorhexidine gluconate 4% Btl 118 mL 1 APPLIC TOPICAL (07:56)
--- NOTE | 2021-04-29 08:00 | XRR_ITS ---
PROCEDURE INFORMATION: Exam: XR Chest Exam date and time: 04/29/2021 8:00 AM Age: 85 years old Clinical indication: Dyspnea; Additional info: Preop aicd/? Lll infiltrate TECHNIQUE: Imaging protocol: XR of the chest. Views: 1 view. COMPARISON: CR (CHEST, ) 04/26/2021 12:12 PM FINDINGS: Lungs: Patchy bibasilar opacities which may be seen with atelectasis or other infiltrates. Pleural spaces: Small pleural effusions. Heart/Mediastinum: Mild cardiomegaly. Bones/joints: No acute fracture. XR/XR chest 1V portable [id number] IMPRESSION: Patchy bibasilar opacities which may be seen with atelectasis or other infiltrates. Small pleural effusions. Radiation Dose CTDIVOL = (mGy): DLP = (mGy-cm)
--- NOTE | 2021-04-29 08:43 | P.PN_ITS ---
Subjective Subjective: Interval history: Seen this morning. Patient continues to complain of reproducible pinpoint pain on right side of his chest. He believes he broke a rib there. The pain is pleuritic in nature. He also says he was experiencing a little bit of heartburn this morning. I offered him a GI cocktail. Vitals are stable no arrhythmia on telemetry noted this morning. He will be going for ICD placement today with Dr. Diamond. I also updated the family yesterday and spoke to granddaughter. Vitals/I&O/Wt Last Vital Signs Temp 98.3 F 04/29/21 04:00 Pulse 74 04/29/21 07:00 Resp 22 H 04/29/21 07:00 BP 164/90 04/29/21 07:00 Pulse Ox 91 04/29/21 07:00 04/28/21 04/29/21 04/29/21 22:59 06:59 14:59 Intake Total 360 / 853.69 659.31 / 1513.00 Output Total 550 / 1000 750 / 1750 Balance -190 / -146.31 -90.69 / -237.00 Weight last 48 hrs Weight 92.334 kg Weight 92.334 kg Physical Exam Narrative: EXAM NARRATIVE: General: Alert oriented x3, seen laying in bed appearing very comfortable. HEENT: Normocephalic, atraumatic, EOMI, breathing comfortably. Cardio: Regular rate rhythm, normal S1-S2, no murmurs rubs gallops, chest pain on right side of chest is reproducible to palpation. Respiratory: Good bilateral air entry, mild rhonchi appreciated bilaterally at bases. GI: Abdomen soft, nontender, nondistended, bowel sounds + Behavior: Appropriate and cooperative Extremities: Trace lower extremity edema present., no cyanosis Whitman catheter in place draining dark yellow urine. Urinary Catheter Management^: Whitman: Cath Placed During This Visit: yes, but has since been removed by the nurse Reason for Continuing Indwelling Catheter: Accurate Measurement of Urinary Output in Critically Ill Patients Urinary Catheter Date of Insertion: 04/25/21 Urinary Catheter Time of Insertion: 11:00 Date Urinary Catheter Removed: 04/26/21 Time Urinary Catheter Discontinued: 11:00 Data : 04/28/21 03:09 04/28/21 03:09 A&P Assessment and plan (1) Prolonged QT interval: Status: Acute (2) Atrial fibrillation: Status: Acute (3) Pneumonia: Status: Acute (4) Cardiomyopathy: Status: Acute (5) Cardiac arrest: Status: Acute (6) Chest pain: Status: Acute Qualifiers: Chest pain type: chest pain due to myocardial ischemia Ischemic chest pain type: unstable angina pectoris Qualified Code(s): I20.0 - Unstable angina (7) Sustained VT (ventricular tachycardia): Status: Acute (8) Congestive heart failure: Status: Acute (9) Hypertension: Hold meds secondary hypotension. Status: Acute Additional A&P Information #Cardiac arrest #V.Tach Unstable V. tach in ER, he was cardioverted twice at 200 J, patient converted to asystole after 2nd cardioversion from asystole converted to V. fib &after administration of epinephrine, atropine bicarb and amiodarone and 3rd cardioversion atrial rhythm was obtained CPR was continued for about 10 minutes He was taken to the [facility], no significant blockage/stenosis noted He was returned to ICU, extubated on 04/25 to 3 L nasal cannula D-Dimer elevated. CTA ruled out PE 04/27 Awaiting AICD placement by Dr. Diamond Patient got 1 dose of insulin but started having blurry vision and feeling tremulous. The later doses were held. 04/28 Overnight patient had an episode of V. tach at 4 in the morning and was given an amnio load and started on amiodarone drip. At this time we will continue the amiodarone drip as per ca rdiology recommendations. Patient will go for ICD placement today at 1:30 PM. EKGs were done and QTC was not prolonged. Continue antibiotics for now. Cardiomyopathy with EF 35 to 40%, clinically does not look to be in fluid overload state. Eliquis was held by Dr. Diamond yesterday evening. Only 1 dose of Plavix held this morning due to concern of stent thrombosis. Full code Cardiac diet DVT PPX: Patient on Eliquis. Family updated 04/28 Attestations Medical Necessity Statement*: Requires another 48 hours of hospital stay Time Spent in Patient Care: less than 15 minutes Coding Level of Care Code Acute Funeral Home Manager for [facility] Diagnoses Prolonged QT interval R94.31 Atrial fibrillation I48.91 Pneumonia J18.9 Cardiomyopathy I42.9 Cardiac arrest I46.9 Chest pain I20.0 Chest pain type: chest pain due to myocardial ischemia Ischemic chest pain type: unstable angina pectoris Sustained VT (ventricular tachycardia) I47.2 Congestive heart failure I50.9 Hypertension I10
[2021-04-29] MEDS: morphine 4 mg/mL SDV 1 mL 2 MG IVP (10:18)
[2021-04-29] MEDS: lidocaine 2% viscous 15 ML, aluminum-mag hydrox-simethicon 30 ML, sucralfate oral liq 1 GM PO (12:20)
--- NOTE | 2021-04-29 12:35 | XR_ITS ---
WS: [id number] PORTABLE CHEST HISTORY: follow up pneumonia COMPARISON: 04/29/2021 Hyperinflated lungs. Mild pulmonary congestion. Small bilateral pleural effusions. No areas of dense consolidation. No pneumothorax. Cardiac size: Mildly enlarged cardiac silhouette. Mediastinum/Aorta: Mild atherosclerosis aorta. No osseous abnormality seen. XR/XR chest 1V portable [id number] IMPRESSION: 1. Small bilateral pleural effusions and mild pulmonary congestion. 2. Moderate cardiomegaly. 3. No focal pneumonia.
--- NOTE | 2021-04-29 12:41 | PC.NURSE ---
PRN pain medications given for chest pain. Pain unrelieved. GI cocktail given.
--- NOTE | 2021-04-29 13:00 | PC.NURSE ---
Pt has been getting up and urinating in in bedside commode this shift
--- NOTE | 2021-04-29 13:19 | P.PN_ITS ---
Subjective Subjective: Interval history: Patient had ICD placement today. Doing well. Vitals/I&O/Wt Last Vital Signs Temp 98.3 F 04/29/21 04:00 Pulse 68 04/29/21 11:00 Resp 20 H 04/29/21 11:04 BP 152/85 04/29/21 11:00 Pulse Ox 94 04/29/21 11:04 04/28/21 04/29/21 04/29/21 22:59 06:59 14:59 Intake Total 360 / 853.69 659.31 / 1513.00 80 / 80 Output Total 550 / 1000 750 / 1750 500 / 500 Balance -190 / -146.31 -90.69 / -237.00 -420 / -420 Weight last 48 hrs Weight 203 lb 9 oz Weight 203 lb 9 oz Physical Exam Narrative: EXAM NARRATIVE: NARRATIVE: Alert and oriented x3 NECK: No jugular vein distension. [] HEENT: No cyanosis. No icterus. No pallor. [] HEART: Normal rate and rhythm, S1+S2, grade 2/6 systolic murmur LUNGS: Mild crackles ABDOMEN: Soft, nontender and nondistended. Positive bowel sounds. No guarding, rebound or tenderness. [] CENTRAL NERVOUS SYSTEM: Alert and oriented x 3 EXTREMITIES: Lower extremities with 1+ edema bilaterally. Pulses palpable in the lower extremities, both dorsalis pedis and posterior tibial. [] Urinary Catheter Management^: Whitman: Cath Placed During This Visit: yes, but has since been removed by the nurse Reason for Continuing Indwelling Catheter: Accurate Measurement of Urinary Output in Critically Ill Patients Urinary Catheter Date of Insertion: 04/25/21 Urinary Catheter Time of Insertion: 11:00 Date Urinary Catheter Removed: 04/26/21 Time Urinary Catheter Discontinued: 11:00 Data : 04/30/21 04:27 04/30/21 04:27 A&P Assessment and plan (1) Sustained VT (ventricular tachycardia): Status: Acute (2) Coronary artery disease: Status: Acute (3) Congestive heart failure: Status: Acute (4) Hypertension: Status: Acute (5) Cardiomyopathy: Status: Acute (6) Atrial fibrillation: Status: Acute (7) Prolonged QT interval: Status: Acute Patient has presented with ventricular tachycardia. Given his recent stents he underwent coronary angiogram that showed patent LAD stent. RCA stents were ostial in location and difficult to engage with the guide catheter. Possible haziness seen in the stent. Given IVUS nonavailability, we proceeded with balloon angioplasty of the stent to ensure excellent flow. VT unlikely to be ischemic in nature as overall patient has good coronary blood supply. It could be secondary to prior scar, prolonged QTc or idiopathic. As patient has 2 episodes of sustained ventricular tachycardia in last 2-3 weeks, requiring cardioversion, ICD has an ICD has been placed today. Patient could not tolerate mexiletine before. Uptitrate metoprolol to 100 mg twice daily. We can add cardizem 30mg q6 hours Continue Eliquis 5 mg twice daily and plavix 75 daily ECHO shows reduction of EF to 35-40% from 40-45% on last echocardiogram Keep Mg >2, K > 4 Thank you for involving us with care of this patient. We will continue to follow. Please call with questions. Attestations Medical Necessity Statement*: 2280 Coding Level of Care Code Acute Clay Hoister for [facility] Diagnoses Sustained VT (ventricular tachycardia) I47.2 Coronary artery disease I25.10 Congestive heart failure I50.9 Hypertension I10 Cardiomyopathy I42.9 Atrial fibrillation I48.91 Prolonged QT interval R94.31
--- NOTE | 2021-04-29 13:36 | PC.NURSE ---
Yeimy, $20, nitro, and chewing tobacco given to daughter. She states she is going to take it home with her.
[2021-04-29 13:37] LABS: Procalcitonin 0.11 ng/mL (0-0.5)
--- NOTE | 2021-04-29 13:46 | PC.NURSE ---
Patient left for surgery with OR staff. Family aware.
--- NOTE | 2021-04-29 14:14 | SC_ITS ---
WS: [id number] Exam: C-arm [place] for Pacemaker Date/Time of Exam: 04/29/2021 2:14 PM Reason For Exam: aicd placement Single anterior posterior C-arm image of the upper chest is submitted for evaluation. An ICD is noted in place over the upper left chest. The leads course across the upper chest and inferiorly along the right cardiac silhouette. No other significant finding on this limited study.
[2021-04-29] MEDS: lidocaine 1% INJ 20 mL INJECTION (14:31)
[2021-04-29] MEDS: ceFAZolin 1,000 mg SDV 1000 MG IRRIGATION (14:31)
--- NOTE | 2021-04-29 15:28 | P.OP_ITS ---
Operative Report Date of procedure: April 29, 2021 Pre-op Diagnosis: Recurrent ventricular fibrillation/tachycardia Post-op diagnosis: same Procedure Done: AICD implantation Implants: AICD and lead Surgeon: Jose Eduardo Diamond Anesthesia: MAC and Local Complications: None: Post procedure chest x-ray pending Findings: Fluoroscopy utilized for guidewire and lead advancement and positioning Condition: stable Disposition: PACU Brief History: Mr. Saucedo is an 85-year-old gentleman who presented with V. tach on April 25. He had had prior cardiac intervention on April 11 with stenting to the LAD and RCA. Follow-up catheterization this hospitalization revealed the stents are widely patent. He had a prior admission for V. tach/V. fib as well. He has chronic A. fib. Because of his recurrent malignant arrhythmias, AICD has been recommended by Dr. Sen. Rationale for this was Discussed with Mr. Child. Appropriate consents have been obtained. Procedure: Procedure: Mr. Saucedo was taken to the OR suite and placed in the supine position over a shoulder roll. He received conscious sedation with continuous anesthesia monitoring by. His entire chest was sterilely prepped and draped. 1% lidocaine was infiltrated in the left subclavicular region. While in Trendelenburg position, utilizing modified seldinger technique, a guidewire was placed in the left subclavian vein. This was confirmed in position by fluoroscopy. Next, after infiltration with lidocaine, a subcutaneous pocket was created beginning from the exit point of the guidewire and extending laterally and inferiorly. Cautery was utilized to create the pocket just above the pectoralis musculature. Hemostasis was confirmed. An antibiotic-soaked sponge was placed in the wound. A dilator and tear-away sheath was placed over the guidewire and advanced under fluoroscopy. Guidewire and dilator were removed. Next using a combination of curved and straight stylettes, the right ventricular lead was placed in position by fluoroscopy. The distal screw was extended. Interrogation was then performed confirming appropriate parameters. The tear- away sheath was then removed and the ventricular lead was sewn to the floor of the subcutaneous pocket. Generator was brought into the field, and after confirmation of hemostasis in the subcutaneous pocket, the leads was connected to the generator with appropriate capture. Generator was placed in a Tyvec pouch for further prophylaxis against infection. The entire system was interrogated by fluoroscopy. Leads and generator were secured in the pocket. Sponge and needle count was correct. The wound was then closed in 2 layers of 3-0 Vicryl suture. Skin was reapproximated in a subcuticular manner with 4-0 Monocryl suture. A pressure dressing was applied. The left arm was placed in a sling. The patient had equal breath sounds bilaterally. He was then gillespie sferred to the PACU, where chest x-ray is currently pending. He will continue to be monitored in the ICU Following are the specifics of this system: Right ventricular lead is 62 cm and model [id number]. Serial number [id number] Ventricular lead had sensing of 10.3 mV with an impedance of 513 ohms. Threshold was 0.75 [employer] generator: Model # [id number] Serial # [id number] AICD is currently active with mode being VVI at 50 with therapy on for VT/V. fib
--- NOTE | 2021-04-29 15:53 | ANES.PREANE2 ---
Pre-Anesthetic Assessment Pre-Anesthetic Assessment: Height/Weight: Height 1.8 m Weight 92.334 kg Temp Pulse Resp BP Pulse Ox 98.3 F 52 L 18 147/86 96 04/29/21 04:00 04/29/21 14:00 04/29/21 13:00 04/29/21 13:00 04/29/21 13:00 Preop Diagnosis: Recurrent ventricular fibrillation/tachycardia Proposed Procedure: Operation Date: 04/25/21 11:00 Proposed Procedures p Percutaneous Coronary Intervention(Not Applicable) - Ayaan Sen M.D Operation Date: 04/29/21 13:30 Proposed Procedures p Defibrillator Placement(Not Applicable) - Jose Eduardo Diamond MD Was Beta Sudhir taken within 24 hours: Yes Was Clonidine taken within 24 hours: N/A Social: Social History: No tobacco Exam: Pre-Anes Outpt Exam: alert, oriented x 3 and clear to auscultation bilaterally Airway: Submandibular: WNL Cervical ROM: WNL MP: 2 CV/HEM: CV/HEM: Arrythmia, CAD, CHF and HTN Anesthetic Plan: ASA status: 3 Anesthesia: Anesthesia Evaluation and MAC Risk of > 500 ml blood loss (7ml/kg in children): No Meds/Allergies Current Medications: Current Medications Generic Name Dose Route Start Last Admin Trade Name Freq PRN Reason Stop Dose Admin Acetaminophen 650 mg 04/25/21 12:06 04/25/21 16:45 Acetaminophen 32 5 Mg Tablet PO 650 mg Q6H PRN Administration MILD PAIN Acetaminophen/Code ine Phosphate 2.5 ml 04/25/21 22:40 04/27/21 17:35 Acetaminophen-Co deine 120-12 Mg/5 Ml Udc PO 2.5 ml Q8H PRN Administration MODERATE PAIN Atorvastatin Calci um 80 mg 04/26/21 09:00 04/29/21 07:55 Atorvastatin 40 Mg Tablet PO 80 mg DAILY RICARDO Administration Benzonatate 100 mg 04/25/21 20:11 04/29/21 07:54 Benzonatate 100 Mg Capsule PO 100 mg TID PRN Administration COUGH Furosemide 20 mg 04/27/21 08:00 04/29/21 07:55 Furosemide 20 Mg Tablet PO 20 mg DAILY@0800 RICARDO Administration Guaifenesin/Dextro methorphan 5 ml 04/26/21 13:33 04/28/21 20:58 Guaifenesin-Dext romethorphan Udc 1 0 Ml PO 5 ml Q4H PRN Administration COUGH Hydromorphone HCl 1 mg 04/25/21 20:11 04/29/21 11:04 Hydromorphone 1 Mg/Ml Inj 1 Ml IVP 1 mg Q6H PRN Administration pain Norepinephrine Bit artrate 4 mg 254 mls @ 0 mls/h r 04/25/21 12:00 04/25/21 13:50 / Dextrose IV 0 mcg/min .Q0M RICARDO 0 mls/hr Titration Protocol Per Protocol Amiodarone HCl 900 mg/ 518 mls @ 0 mls/h r 04/28/21 04:30 04/29/21 05:10 Dextrose/ IV Misce llaneous IV 0.5 mg/min Supplies .Q0M RICARDO 17.27 mls/hr Administration Protocol Per Protocol Metoprolol Tartrat e 25 mg 04/28/21 09:45 04/29/21 07:55 Metoprolol Tartr ate 25 Mg Tablet PO 25 mg BID@0900,2100 RICARDO Administration Non-Formulary Medi cation 200 mg 04/26/21 17:15 04/27/21 09:07 Mexiletine PO 200 mg TID RICARDO Administration Oxycodone HCl 5 mg 04/25/21 16:52 04/27/21 11:24 Oxycodone 5 Mg I r Tab/Cap PO 5 mg Q4H PRN Administration MODERATE PAIN Pantoprazole Sodiu m 40 mg 04/25/21 13:00 04/29/21 07:55 Pantoprazole 40 Mg Sdv IVP 40 mg DAILY RICARDO Administration PFSH Anesthesia PFSH: Medical History Acute MO Acute non-ST elevation myocardial infarction (NSTEMI) Atrial fibrillation Coronary artery disease Coronary artery disease Hyperlipidemia Hypertension Sustained VT (ventricular tachycardia) Ventricular tachycardia Surgical History Stented coronary artery Social History Smoking and tobacco status: never smoked Supplemental PFSH Information: Unable to review family history or social history currently secondary to intubation and sedation. Data Anesthesia CBC & Chem 7: 04/28/21 03:09 04/28/21 03:09 Other Labs: Laboratory Results - last 48 hr 04/28/21 04/28/21 04/28/21 03:09 03:09 04:24 WBC 7.9 RBC 3.54 L Hgb 11.2 L Hct 34.2 L MCV 96.6 H MCH 31.6 MCHC 32.7 RDW 13.3 Plt Count 217 MPV 9.8 Neut % (Auto) 70.1 Lymph % (Auto) 17.3 [place] % (Auto) 9.9 Eos % (Auto) 2.1 Baso % (Auto) 0.3 Neut # (Auto) 5.57 Lymph # (Auto) 1.4 [place] # (Auto) 0.8 Eos # (Auto) 0.2 Baso # (Auto) 0.0 Nucleated RBC % (auto) 0 Nucleated RBCs # 0.0 Sodium 137 Potassium 3.5 Chloride 104 Carbon Dioxide 23 Anion Gap 13.5 BUN 10 Creatinine 0.7 GFR Calculation Not Reportable Glucose 93 POC Glucose 107 Calculated Osmolality 283 L Calcium 8.4 L Magnesium 1.7 Procalcitonin Vancomycin Trough 04/28/21 04/28/21 15:11 15:11 WBC RBC Hgb Hct MCV MCH MCHC RDW Plt Count MPV Neut % (Auto) Lymph % (Auto) [place] % (Auto) Eos % (Auto) Baso % (Auto) Neut # (Auto) Lymph # (Auto) [place] # (Auto) Eos # (Auto) Baso # (Auto) Nucleated RBC % (auto) Nucleated RBCs # Sodium Potassium Chloride Carbon Dioxide Anion Gap BUN Creatinine GFR Calculation Glucose POC Glucose Calculated Osmolality Calcium Magnesium Procalcitonin 0.11 Vancomycin Trough 14.1 Cardiac Studies: Echocardiogram 04/12/21
--- NOTE | 2021-04-29 16:11 | ANE.PACU2 ---
Inpatient post-anesthesia follow up: Vital signs: Temperature 98.0 F Pulse Rate [Left R adial] 250 Pulse Rate 69 Respiratory Rate 20 Blood Pressure [Ri ght Arm] 90/50 Blood Pressure 154/71 Pulse Oximetry 94 Oxygen Delivery Me thod Room Air Oxygen Flow Rate 2 Fraction of Inspir ed Oxygen 40 Hydration adequate: Yes Nausea and vomiting: No Pain level: 2 Mental status: Baseline
--- NOTE | 2021-04-29 16:52 | PC.NURSE ---
Pt returned from OR at around 1532 on a non re breather with amio running. Dressing on left upper chest is dry and intact and arm is in sling.
--- NOTE | 2021-04-29 16:55 | PC.NURSE ---
Infiltration Where amio was running previously had infiltrated and IV was pulled by OR staff. Site was red, warm to touch, and was blanchable. Area was marked, warm compress was applied and arm was elevated. No pain at site. Dr. Covington aware. No new orders
--- NOTE | 2021-04-29 19:05 | PC.NURSE ---
This nurse noticed Vtach on the monitor and when she entered the patients room he was thrashing around in bed, sling was off, and patient was attempting to hit the staff with monitor wires. Patient was very confused thinking we were trying to hurt him and he stated he did not know where he was. PRN orders were entered. Other staff was in room and assisted in calming the patient down. Multiple episodes of vtach was noted on the monitor at this time. All lasting around 30 seconds and the patients reports a shocking feeling in chest every time. Dr. Covington and Dr. Sen aware.
[2021-04-29] MEDS: lidocaine drip 2,000 MG/500 ML PREMIX 30 MG IV (19:51)
[2021-04-29] MEDS: metoprolol tartrate 50 mg Tablet 100 MG PO (20:17)
[2021-04-29 21:15] LABS: Basophils % 0.6 %; Eosinophils # 0.2 10^3/uL (0.0-0.8); Eosinophils % 2.5 %; Hematocrit 37.1 % (42.0-52.0); Hemoglobin 12.4 g/dL (11.7-16.6); Lymphocytes # 0.5 10^3/uL (0.8-4.8); Lymphocytes % 7.4 %; Mean Corpuscular HGB Conc 33.4 g/dL (30.0-36.0); Mean Corpuscular Hemoglobin 31.4 pg (28.0-34.0); Mean Corpuscular Volume 93.9 fl (80-94); Mean Platelet Volume 9.2 fL (7.4-10.4); Monocytes # 0.8 10^3/uL (0.2-0.9); Monocytes % 11.5 %; Neutrophils # 5.25 10^3/uL (1.8-7.7); Neutrophils % 77.7 %; Nucleated Red Blood Cells % 0 %; Platelet Count 251 10^3/cmm (130-400); Red Blood Count 3.95 10^6/uL (4.1-5.3); Red Cell Distribution Width 13.3 % (12.1-15.1); White Blood Count 6.8 10^3/uL (4.0-10.0)
[2021-04-29] MEDS: metoprolol tartrate 1 mg/1 mL SDV 5 mL 5 MG IVP (21:20)
[2021-04-30] VITALS (24 sets, daily range): BP systolic 106–167; BP diastolic 57–109; PULSE 55–94; RESP 12–28; TEMP 36.4–37.2; O2SAT 90–95
--- NOTE | 2021-04-30 | PC.NURSE ---
From [id number] the patient's new ICD detected/treated: 15 treated VT, with a total therapy ATP (Antitachycardia pacing) X24 and 35J shock X3. Please see the full report of the pacemaker interrogation in the patient's binder for any further information. Dr. Sen was on the floor shortly at the start of shift and gave orders for 100 mg of Metoprolol PO and also to adminster 5 mg of metoprolol IVP. Further instructions given were to start a lidocaine drip, and to stop the amiodarone drip 1 hour after starting the lidocaine drip. Lastly, he requested the pacemaker to be interrogated, which report has since been handed to Dr. Sen. Before the physician left, he said to start the patient on a cardizem drip if the pacemaker started going off again. Andria, the clubhouse manager for [employer] had also given permission for the patient's daughters to come by. They were both with their father until about 2300. The patient has had no further episodes of ventricular tachycardia this shift. The patient is alert and oriented to person, place, time, and situation. Despite being oriented and alert, the patient displays confusion.
[2021-04-30] MEDS: piperacillin-tazobactam 3.375 GM in sodium chloride 0.9% (plus) 50 ML IV (04:53)
[2021-04-30 05:33] LABS: Basophils % 0.3 %; Eosinophils # 0.2 10^3/uL (0.0-0.8); Hematocrit 38.8 % (42.0-52.0); Lymphocytes # 0.8 10^3/uL (0.8-4.8); Lymphocytes % 12.5 %; Mean Corpuscular HGB Conc 30.9 g/dL (30.0-36.0); Mean Corpuscular Hemoglobin 31.3 pg (28.0-34.0); Mean Corpuscular Volume 101.3 fl (80-94); Mean Platelet Volume 9.8 fL (7.4-10.4); Monocytes # 0.8 10^3/uL (0.2-0.9); Monocytes % 12.5 %; Neutrophils # 4.49 10^3/uL (1.8-7.7); Neutrophils % 71.2 %; Nucleated Red Blood Cells % 0 %; Platelet Count 231 10^3/cmm (130-400); Red Blood Count 3.83 10^6/uL (4.1-5.3); Red Cell Distribution Width 13.4 % (12.1-15.1); White Blood Count 6.3 10^3/uL (4.0-10.0)
[2021-04-30 06:06] LABS: Anion Gap 12.9 (5-19); Blood Urea Nitrogen 9 mg/dL (8-23); Calcium 8.5 mg/dL (8.5-10.5); Carbon Dioxide 23 mmol/L (22-29); Chloride 103 mmol/L (98-107); Glucose 104 mg/dL (65-115); Magnesium 1.9 mg/dL (1.7-2.3); Osmolality Calculated 281 mOsm/kg (285-295); Sodium 136 mmol/L (136-145)
[2021-04-30 06:18] LABS: Potassium 2.9 mmol/L (3.5-5.1)
--- NOTE | 2021-04-30 06:38 | P.PN_ITS ---
Subjective Subjective: Interval history: POD #1 status post AICD implantation. Nurses report Mr. Saucedo had a restless night and was moving his left arm well above his head, despite the fact that it was supposed to be secured in a shoulder immobilizer. He has little recall of events of last night. He appears to be appropriate and at baseline this morning. Oriented to person place and time. Surgical dressing was removed. The incision line is intact, clean and dry. No obvious fluid collections or evidence for hematoma. Sterile dressing was reapplied and secured. Vitals/I&O/Wt Last Vital Signs Temp 99 F 04/30/21 00:00 Pulse 71 04/30/21 06:00 Resp 22 H 04/30/21 06:00 BP 142/91 04/30/21 06:00 Pulse Ox 90 04/30/21 06:00 04/29/21 04/29/21 04/30/21 14:59 22:59 06:59 Intake Total 80 / 80 270.851 / 350.851 50 / 400.851 Output Total 1100 / 1100 450 / 1550 700 / 2250 Balance -1020 / -1020 -179.149 / -1199.149 -650 / -1849.149 Weight last 48 hrs Weight 203 lb 9 oz Physical Exam Chest: OTHER: Left subclavicular incision is intact and dry. No apparent pocket fluid collection. New sterile dressing reapplied. Urinary Catheter Management^: Whitman: Cath Placed During This Visit: yes, but has since been removed by the nurse Reason for Continuing Indwelling Catheter: Accurate Measurement of Urinary Output in Critically Ill Patients Urinary Catheter Date of Insertion: 04/25/21 Urinary Catheter Time of Insertion: 11:00 Date Urinary Catheter Removed: 04/26/21 Time Urinary Catheter Discontinued: 11:00 Data : 04/30/21 04:27 04/30/21 04:27 A&P Assessment and plan (1) Status post implantation of automatic cardioverter/defibrillator (AICD): POD #1 status post AICD implantation Limit activity with left upper extremity for 2 weeks. Do not raise left arm above eye level for 2 weeks. Incision line should be covered daily for the next 5 days. May follow-up at [facility] pacemaker clinic 1 week after discharge. 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
[2021-04-30 06:52] LABS: Phosphorus 2.3 mg/dL (2.5-4.5)
--- NOTE | 2021-04-30 07:00 | PC.NURSE ---
There were no further episodes where the pacemaker went off or started pacing since the earlier episodes at the start of the shift. The patient remained pleasant and cooperative. Denied any pain, but experienced bouts of coughing fits. The patient's total urine output was 700 mL. The lidocaine drip remains running at 2 mg/min. Shift report given to Jasmine.
[2021-04-30] MEDS: lidocaine 1% 5 ML in potassium chloride premix 100 ML 25 ML IV (07:34)
[2021-04-30] MEDS: potassium chloride ER 20 mEq Tablet 40 MEQ PO (07:35)
[2021-04-30] MEDS: FUROsemide 20 mg Tablet PO (07:35)
[2021-04-30] MEDS: docusate sodium 100 mg Capsule PO (09:24)
[2021-04-30] MEDS: metoprolol tartrate 50 mg Tablet 100 MG PO (09:24)
[2021-04-30] MEDS: polyethylene glycol 3350 Pkt 17 gm PO (09:25)
--- NOTE | 2021-04-30 09:26 | P.PN_ITS ---
Subjective Subjective: Interval history: Patient is doing well. He had multiple VT episodes last evening and had 3 shocks and multiple ATP runs on device interrogation. Patient was started on lidocaine gtt last night and had uptitration of metoprolol. Vitals/I&O/Wt Last Vital Signs Temp 99 F 04/30/21 00:00 Pulse 86 04/30/21 09:00 Resp 20 H 04/30/21 09:00 BP 158/80 04/30/21 09:00 Pulse Ox 93 04/30/21 09:00 04/29/21 04/30/21 04/30/21 22:59 06:59 14:59 Intake Total 270.851 / 350.851 50 / 400.851 Output Total 450 / 1550 700 / 2250 Balance -179.149 / -1199.149 -650 / -1849.149 Weight last 48 hrs Weight 203 lb 9 oz Physical Exam Narrative: EXAM NARRATIVE: NARRATIVE: Alert and oriented x3 NECK: No jugular vein distension. [] HEENT: No cyanosis. No icterus. No pallor. [] HEART: Normal rate and rhythm, S1+S2, grade 2/6 systolic murmur LUNGS: Mild crackles ABDOMEN: Soft, nontender and nondistended. Positive bowel sounds. No guarding, rebound or tenderness. [] CENTRAL NERVOUS SYSTEM: Alert and oriented x 3 EXTREMITIES: Lower extremities with 1+ edema bilaterally. Pulses palpable in the lower extremities, both dorsalis pedis and posterior tibial. [] Urinary Catheter Management^: Whitman: Cath Placed During This Visit: yes, but has since been removed by the nurse Reason for Continuing Indwelling Catheter: Accurate Measurement of Urinary Output in Critically Ill Patients Urinary Catheter Date of Insertion: 04/25/21 Urinary Catheter Time of Insertion: 11:00 Date Urinary Catheter Removed: 04/26/21 Time Urinary Catheter Discontinued: 11:00 Data : 05/01/21 04:53 05/01/21 04:53 A&P Assessment and plan (1) Sustained VT (ventricular tachycardia): Status: Acute (2) Coronary artery disease: Status: Acute (3) Congestive heart failure: Status: Acute (4) Hypertension: Status: Acute (5) Cardiomyopathy: Status: Acute (6) Atrial fibrillation: Status: Acute (7) Prolonged QT interval: Status: Acute Patient has presented with ventricular tachycardia. Given his recent stents he underwent coronary angiogram that showed patent LAD stent. RCA stents were ostial in location and difficult to engage with the guide catheter. Possible haziness seen in the stent. Given IVUS nonavailability, we proceeded with balloon angioplasty of the stent to ensure excellent flow. VT unlikely to be ischemic in nature as overall patient has good coronary blood supply. It could be secondary to prior scar, prolonged QTc or idiopathic. As patient has 2 episodes of sustained ventricular tachycardia in last 2-3 weeks, requiring cardioversion, ICD was placed yesterday. Patient went into VT again last evening and had multiple shocks. Has been put on lidocaine drip. We will start Cardizem 30 mg every 6 hours. Continue metoprolol 100 mg twice daily. We will stop lidocaine drip. Mexiletine was again started however patient was having hallucinations which could be from lidocaine drip. Mexiletine is also stopped now. Continue Eliquis 5 mg twice daily and plavix 75 daily ECHO shows reduction of EF to 35-40% from 40-45% on last echocardiogram Keep Mg >2, K > 4 Had a discussion with the EP team in [place] who recommend medical therapy at this time as VT ablation would be high risk given his age. We will also start amiodarone 400 mg twice daily. It will be titrated down to 200 mg twice daily in 1 week. I had a detailed family discussion and family understands the rationale of continued medical therapy and agree with it. Patient also does not want to be transferred out at this time. Thank you for involving us with care of this patient. We will continue to follow. Please call with questions. Attestations Medical Necessity Statement*: Care expected to cross 2 midnights. Coding Level of Care Code Acute Rehabilitation Assistant for Lawson Zelaya Diagnoses Sustained VT (ventricular tachycardia) I47.2 Coronary artery disease I25.10 Congestive heart failure I50.9 Hypertension I10 Cardiomyopathy I42.9 Atrial fibrillation I48.91 Prolonged QT interval R94.31
[2021-04-30] MEDS: atorvastatin 40 mg Tablet 80 MG PO (09:40)
--- NOTE | 2021-04-30 09:58 | PC.CHAP ---
Pastoral Care Encounter/Spiritual Assessment Type of Contact [] Declined informatics consultant visit [] Patient/Family/Request visit [] Outpatient visit [] Follow-up visit [] Physician referral [] Code/Alert [x] Routine visit [] Staff referral [] Actively dying [] Patient sleeping [] Family support [] [] Out of room [] Palliative care [] [x] Receiving care in room [] Pre-surgical visit [] Trauma [] Long length of stay [x] ICU visit [] Other: Relational/Emotional Strength [] Patient feels connected with others/family/visitors/staff [] Distress [] Loneliness/isolation [] Abandonment Spirituality of Patient [] Person of Shy [] Attends Taoism of their Shy [] Believes in Prayer [] Reads Bible or Yazidi materials [] There are Spiritual issues to be addressed [employer] 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 Interventions [x] Prayer [] Active listening [] Non-anxious presence [] Spiritual/emotional support [] Crisis/trauma care [] Spiritual counseling [] Bereavement support [] Provided bereavement packet [] Provided Bible/devotional materials [] Provided toy/stuffed animal, coloring book to patient or family member [] Provided Communion [] Anointing/[place] [] Salvation [x] Completed spiritual assessment [] Other: Impact on Illness or Injury [] Angry [] Fearful [] Anxious [] Often cries [] Exhaustion [] Unable to work [] Unable to attend mosque [] Unable to walk/stand [] Unable to read [] Unable to drive [] Unable to eat/drink [] Unable to sleep [] Unable to be with family [] Patient intubated [] Other: Summary Time spent with patient
[2021-04-30] MEDS: dilTIAZem 30 mg Tablet PO ×3 (10:38→21:39)
[2021-04-30] MEDS: diphenhydrAMINE 25 mg Capsule PO (10:38)
[2021-04-30] MEDS: pantoprazole 40 mg SDV IVP (10:39)
[2021-04-30] MEDS: MEXILETINE 200 MG 200 EACH PO (11:36)
--- NOTE | 2021-04-30 11:45 | PC.NURSE ---
Around 0900 Dr. Nadya casillas. Talked to the patient about possible transfer to a [facility] for a specialized procedure that could stop the heart from receiving the electrical impulses that cause ventricular rhythms. Told nurse to contact her after Dr. Francy casillas with his care plan. Got orders for Muralax and Docusate for constipation. Around 1000 Dr. Francy casillas. Gave new medication orders. Told nurse that plan of care is to see how the medications work. Notifed Dr. Covington about rounding with Dr. Sen. Got order to turn Lidocaine off at noon. Patient called family and stated, You need to come. I don't feel that I will make it . Talked to the patient after the phone call. Patient stated that when he took some oral medications and drank water he got sort of breath. Patient stated that he got that feeling. Stayed with the patient and explained the care plan. Explained that if something was wrong then the nursing staff and doctors would be in the room taking care of the patient. Stayed with the patient until he verbalized that he was feeling better and not afraid. Called family and explained that with the shortness of breath the patient felt afraid. Updated the family about doctor rounding and care plan. Explained to the family if something was critical with the patient then we would be the ones calling the family. Family verbalized understanding. Family told nurse that they are planning on visiting and will come shortly. Family visiting patient. Educated family and patient about possible transfer and reason getting patient to a specialized cardiac hospital.
--- NOTE | 2021-04-30 11:47 | PC.SOCIAL ---
IMM Update: pg 2 of IMM updated and reviewed w/ patient. Copy provided.
--- NOTE | 2021-04-30 11:52 | PM.PN ---
Subjective Subjective: Interval history: Seen and examined this morning. Events noted from yesterday. Patient did get his AICD placed and was shocked 3x after going into V.tach. Metoprolol 100 was given and he was started on lidocaine drip. He seemed to do ok overnight on lidocaine. Patient was confused yesterday and doesnt really remember yesterdays events this morning. He offers no complaints today and says he feels well. Vitals/I&O/Wt Last Vital Signs Temp 97.7 F 04/30/21 10:00 Pulse 72 04/30/21 10:00 Resp 12 04/30/21 10:00 BP 136/60 04/30/21 10:00 Pulse Ox 95 04/30/21 10:00 04/29/21 04/30/21 04/30/21 22:59 06:59 14:59 Intake Total 270.851 / 350.851 50 / 010.905 3752.5 / 1462.5 Output Total 450 / 1550 700 / 2250 300 / 300 Balance -179.149 / -1199.149 -650 / -2932.064 2270.5 / 1162.5 Weight last 48 hrs Weight 92.334 kg Physical Exam Narrative: EXAM NARRATIVE: General: Alert oriented x3, seen laying in bed appearing very comfortable. lidocaine gtt running. HEENT: Normocephalic, atraumatic, EOMI, breathing comfortably. Cardio: Regular rate rhythm, normal S1-S2, no murmurs rubs gallops, no chest pain on palpation on right side today. Respiratory: Good bilateral air entry, mainly clear to auscultation. GI: Abdomen soft, nontender, nondistended, bowel sounds + Behavior: Appropriate and cooperative Extremities: Trace lower extremity edema present., no cyanosis Whitman catheter in place draining dark yellow urine. Urinary Catheter Management^: Whitman: Cath Placed During This Visit: yes, but has since been removed by the nurse Reason for Continuing Indwelling Catheter: Accurate Measurement of Urinary Output in Critically Ill Patients Urinary Catheter Date of Insertion: 04/25/21 Urinary Catheter Time of Insertion: 11:00 Date Urinary Catheter Removed: 04/26/21 Time Urinary Catheter Discontinued: 11:00 Data : 04/30/21 04:27 04/30/21 04:27 A&P Assessment and plan (1) Prolonged QT interval: Status: Acute (2) Atrial fibrillation: Status: Acute (3) Pneumonia: Status: Acute (4) Cardiomyopathy: Status: Acute (5) Cardiac arrest: Status: Acute (6) Chest pain: Status: Acute Qualifiers: Chest pain type: chest pain due to myocardial ischemia Ischemic chest pain type: unstable angina pectoris Qualified Code(s): I20.0 - Unstable angina (7) Sustained VT (ventricular tachycardia): Status: Acute (8) Congestive heart failure: Status: Acute (9) Hypertension: Hold meds secondary hypotension. Status: Acute Additional A&P Information #Cardiac arrest #V.Tach #Atrial fibrillation #HTN #HLD Unstable V. tach in ER, he was cardioverted twice at 200 J, patient converted to asystole after 2nd cardioversion from asystole converted to V. fib &after administration of epinephrine, atropine bicarb and amiodarone and 3rd cardioversion atrial rhythm was obtained CPR was continued for about 10 minutes He was taken to the Metal Patternmaker Apprentice, no significant blockage/stenosis noted He was returned to ICU, extubated on 04/25 to 3 L nasal cannula D-Dimer elevated. CTA ruled out PE 04/27 ICD was placed 04/29. Patient had v.tach and was shocked x3 in evening Metoprolol 100 was given and lidocaine ggt started. ICD interrogation requested. As per cardio recs, will start cardizem 30 q6 hours, metoprolol 100 BID and wean off lidocaine drip. Amio has been turned off. Will restart mexelitine at lower dose of 200 BID see patient response. Restart eliquis and plavix. Dressing changed by Dr. Hinds this morning. No evidence of hematoma at ICD site. Further management as per cardio, #Constipation - Will order miralax and doc senna. Full code Cardiac diet DVT PPX: Patient on Eliquis. Family was here night of 04/29 and stayed with patient till 11 pm. Attestations Medical Necessity Statement*: requires Icu level care additional > 48 hours Time Spent in Patient Care: 16 - 35 minutes Coding Level of Care Code Acute Ux Design Manager for g Fwd Diagnoses Prolonged QT interval R94.31 Atrial fibrillation I48.91 Pneumonia J18.9 Cardiomyopathy I42.9 Cardiac arrest I46.9 Chest pain I20.0 Chest pain type: chest pain due to myocardial ischemia Ischemic chest pain type: unstable angina pectoris Sustained VT (ventricular tachycardia) I47.2 Congestive heart failure I50.9 Hypertension I10
[2021-04-30] MEDS: clopidogrel 75 mg Tablet PO (12:13)
[2021-04-30 12:57] LABS: Anion Gap 9.8 (5-19); Blood Urea Nitrogen 10 mg/dL (8-23); Calcium 8.6 mg/dL (8.5-10.5); Carbon Dioxide 24 mmol/L (22-29); Chloride 103 mmol/L (98-107); Glucose 74 mg/dL (65-115); Osmolality Calculated 274 mOsm/kg (285-295); Potassium 3.8 mmol/L (3.5-5.1); Sodium 133 mmol/L (136-145)
--- NOTE | 2021-04-30 14:43 | PC.NURSE ---
[id number] Covington about patient vitals, sinus melissa heart rate 54, oxygen at 92, blood pressure 125/63 (83). Notifed that the family would like to know more about possible transfer. Notified that patient had some pacing. Notified that patient is seeing bugs on the reed. Dr. Covington stated that Dr. Sen was going to talk to the family. [id number]. Sen rounded with the family. Dr. Sen explained what the procedure would do and chance of success with the family. The family agreed for Dr. Sen to get consult with a specialist who does the procedures before making a decision. Dr. Sen stated the alternatives. Dr. Sen ordered for the Mexiletine to be stopped. Family wanted to talk to case management about insurance and meals on wheels. Called case management to visit with family.
[2021-04-30] MEDS: acetaminophen 325 mg Tablet 650 MG PO (15:29)
--- NOTE | 2021-04-30 16:06 | PC.NURSE ---
Dr. Sen educated family that chance of success is low and risk of complications are high. The family decided to not transfer the patient. Family said that they want to treat with medications. Family stated that they have people at home that can look after patient upon discharge. Dr. Covington notified that Dr. Sen talked with family and that family wants to do medications for now. Patient voiced dissatisfaction that he has only Tylenol ordered for pain. Educated that patient did not need pain mediation throughout the day. Educated patient that when asked about pain he denied it. Educated patient that the goal is to be able to go home with no pain or pain mediation needed.
--- NOTE | 2021-04-30 17:09 | PC.NURSE ---
Gave information booklet about pacer and/or defibrillator to family. Educated the family about when to call the physician and/or nurse. Educated family that the patient needs to keep identification card with patient at all times. Informed the family that the card is temporary and a permanent card will arrive in the mail.
[2021-04-30] MEDS: amiodarone 200 mg Tablet 400 MG PO (18:34)
--- NOTE | 2021-04-30 18:51 | PC.NURSE ---
Shift Note Frequent safety and comfort rounds continue. Orders and/or nursing care completed as indicated. Patient monitored for response to intervention and treatment(s). Education provided includes new medication, care plan, and disease precess. Patient and/or international account representative verbalized understanding. Patient states that he does not see bugs on the reed at this moment. Patient stated the he seen bugs throughout the day. Patient resting in bed at the moment. Patient rounded on frequently.
[2021-04-30] MEDS: apixaban 5 mg Tablet PO (21:35)
[2021-05-01] VITALS (20 sets, daily range): BP systolic 119–165; BP diastolic 61–98; PULSE 51–71; RESP 16–27; TEMP 36.6–37; O2SAT 91–98; BMI 27.8
[2021-05-01] MEDS: acetaminophen 325 mg Tablet 650 MG PO ×3 (00:02→20:20)
[2021-05-01] MEDS: guaiFENesin-dextromethorphan UDC 10 mL 5 ML PO (00:03)
[2021-05-01] MEDS: dilTIAZem 30 mg Tablet PO ×3 (04:01→20:20)
[2021-05-01 05:41] LABS: Basophils % 0.6 %; Eosinophils # 0.5 10^3/uL (0.0-0.8); Eosinophils % 8.4 %; Hematocrit 37.1 % (42.0-52.0); Hemoglobin 12.1 g/dL (11.7-16.6); Lymphocytes # 1.5 10^3/uL (0.8-4.8); Lymphocytes % 22.6 %; Mean Corpuscular HGB Conc 32.6 g/dL (30.0-36.0); Mean Corpuscular Hemoglobin 31.5 pg (28.0-34.0); Mean Corpuscular Volume 96.6 fl (80-94); Mean Platelet Volume 9.7 fL (7.4-10.4); Monocytes # 0.8 10^3/uL (0.2-0.9); Neutrophils # 3.54 10^3/uL (1.8-7.7); Neutrophils % 54.9 %; Nucleated Red Blood Cells % 0 %; Platelet Count 219 10^3/cmm (130-400); Red Blood Count 3.84 10^6/uL (4.1-5.3); Red Cell Distribution Width 13.7 % (12.1-15.1); White Blood Count 6.5 10^3/uL (4.0-10.0)
[2021-05-01 06:10] LABS: Anion Gap 10.3 (5-19); Blood Urea Nitrogen 11 mg/dL (8-23); Calcium 8.4 mg/dL (8.5-10.5); Carbon Dioxide 23 mmol/L (22-29); Chloride 106 mmol/L (98-107); Glucose 88 mg/dL (65-115); Magnesium 2.2 mg/dL (1.7-2.3); Osmolality Calculated 281 mOsm/kg (285-295); Potassium 3.3 mmol/L (3.5-5.1); Sodium 136 mmol/L (136-145)
--- NOTE | 2021-05-01 06:32 | PC.NURSE ---
Shift Note Frequent safety and comfort rounds continue. Orders and/or nursing care completed as indicated. Patient monitored for response to intervention and treatment(s). Education provided to the patient and on the phone to the patient's daughter. There were no new changes that took place during the shift. The patient experienced about 2 medium size bowel movements and had 400 mL or urine output. The patient went from bradycardia to a normal sinus rhythm with PAC's, and a BBB. The patient was awake, alert, and oriented to person, place, time and situation.
[2021-05-01] MEDS: metoprolol tartrate 50 mg Tablet 100 MG PO ×2 (07:46→20:19)
[2021-05-01] MEDS: clopidogrel 75 mg Tablet PO (07:57)
[2021-05-01] MEDS: amiodarone 200 mg Tablet 400 MG PO ×2 (07:57→17:31)
[2021-05-01] MEDS: FUROsemide 20 mg Tablet PO (07:58)
[2021-05-01] MEDS: atorvastatin 40 mg Tablet 80 MG PO (07:58)
[2021-05-01] MEDS: apixaban 5 mg Tablet PO ×2 (07:58→20:20)
[2021-05-01] MEDS: pantoprazole 40 mg SDV IVP (08:05)
[2021-05-01] MEDS: potassium chloride oral liq 20 mEq/15 mL UDC 40 MEQ PO (09:54)
--- NOTE | 2021-05-01 10:02 | PC.CHAP ---
Pastoral Care Encounter/Spiritual Assessment Type of Contact [] Declined research laboratory technician visit [] Patient/Family/Request visit [] Outpatient visit [] Follow-up visit [] Physician referral [] Code/Alert [x] Routine visit [] Staff referral [] Actively dying [] Patient sleeping [] Family support [] [] Out of room [] Palliative care [] [] Receiving care in room [] Pre-surgical visit [] Trauma [] Long length of stay [x] ICU visit [x] Other: sitting up in chair.... Relational/Emotional Strength [] Patient feels connected with others/family/visitors/staff [] Distress [] Loneliness/isolation [] Abandonment Spirituality of Patient [x] Person of Shy [] Attends Christianity of their Shy [] Believes in Prayer [] Reads Bible or Sabianism materials [] There are Spiritual issues to be addressed Crop And Soil Technician Interventions [x] Prayer [x] Active listening [x] Non-anxious presence [x] Spiritual/emotional support [] Crisis/trauma care [] Spiritual counseling [] Bereavement support [] Provided bereavement packet [] Provided Bible/devotional materials [] Provided toy/stuffed animal, coloring book to patient or family member [] Provided Communion [] Anointing/[facility] [] Salvation [x] Completed spiritual assessment [] Other: Impact on Illness or Injury [] Angry [] Fearful [] Anxious [] Often cries [] Exhaustion [] Unable to work [] Unable to attend lutheran [] Unable to walk/stand [] Unable to read [] Unable to drive [] Unable to eat/drink [] Unable to sleep [] Unable to be with family [] Patient intubated [] Other: Summary feeling stronger.. coloring much better... Time spent with patient 5 min
--- NOTE | 2021-05-01 12:16 | P.PN_ITS ---
Subjective Subjective: Interval history: Seen this morning. He has not had any more arrhythmias overnight. He will be placed on amiodarone 400 twice daily, metoprolol 100 twice daily and Cardizem 30 every 6 hours. He is stable to move out of the ICU today. We will move him to cardiac stepdown. Patient reports feeling well and has no complaints. He also states his chest pain on the right side that he was having for the last few days has also gotten a lot better at this point. Vitals/I&O/Wt Last Vital Signs Temp 98.1 F 05/01/21 04:00 Pulse 51 L 05/01/21 10:00 Resp 22 H 05/01/21 10:00 BP 135/61 05/01/21 10:00 Pulse Ox 98 05/01/21 10:00 04/30/21 05/01/21 05/01/21 22:59 06:59 14:59 Intake Total 957 / 2762.375 100 / 2862.375 Output Total 150 / 600 400 / 1000 450 / 450 Balance 807 / 2162.375 -300 / 1862.375 -450 / -450 Weight last 48 hrs Weight 90.407 kg Physical Exam Narrative: EXAM NARRATIVE: General: Alert oriented x3, seen laying in bed appearing in good spirits today. HEENT: Normocephalic, atraumatic, EOMI, breathing comfortably. Cardio: Regular rate rhythm, normal S1-S2, no murmurs rubs gallops, no chest pain on palpation on right side today. Respiratory: Good bilateral air entry, mainly clear to auscultation. GI: Abdomen soft, nontender, nondistended, bowel sounds + Behavior: Appropriate and cooperative Extremities: Trace lower extremity edema present., no cyanosis Urinary Catheter Management^: Whitman: Cath Placed During This Visit: yes, but has since been removed by the nurse Reason for Continuing Indwelling Catheter: Accurate Measurement of Urinary Output in Critically Ill Patients Urinary Catheter Date of Insertion: 04/25/21 Urinary Catheter Time of Insertion: 11:00 Date Urinary Catheter Removed: 04/26/21 Time Urinary Catheter Discontinued: 11:00 Data : 05/01/21 04:53 05/01/21 04:53 Micro: Microbiology 04/25/21 17:22 Blood Culture - Final Blood NO GROWTH AFTER 5 DAYS 04/25/21 17:08 Blood Culture - Final Blood NO GROWTH AFTER 5 DAYS A&P Assessment and plan (1) Prolonged QT interval: Status: Acute (2) Atrial fibrillation: Status: Acute (3) Pneumonia: Status: Acute (4) Cardiomyopathy: Status: Acute (5) Cardiac arrest: Status: Acute (6) Chest pain: Status: Acute Qualifiers: Chest pain type: chest pain due to myocardial ischemia Ischemic chest pain type: unstable angina pectoris Qualified Code(s): I20.0 - Unstable angina (7) Sustained VT (ventricular tachycardia): Status: Acute (8) Congestive heart failure: Status: Acute (9) Hypertension: Hold meds secondary hypotension. Status: Acute Additional A&P Information #Cardiac arrest #V.Tach #Atrial fibrillation #HTN #HLD Unstable V. tach in ER, he was cardioverted twice at 200 J, patient converted to asystole after 2nd cardioversion from asystole converted to V. fib &after administration of epinephrine, atropine bicarb and amiodarone and 3rd cardioversion atrial rhythm was obtained CPR was continued for about 10 minutes He was taken to the Security Control Center Operator, no significant blockage/stenosis noted He was returned to ICU, extubated on 04/25 to 3 L nasal cannula D-Dimer elevated. CTA ruled out PE 04/27 ICD was placed 04/29. Patient had v.tach and was shocked x3 in evening Metoprolol 100 was given and lidocaine ggt started. ICD interrogation requested. Eliquis and Plavix have been continued 04/30 Continue patient on metoprolol 100 twice daily, Cardizem 30 every 6 and amiodarone 400 twice daily as per cardiology recommendations. We will move patient from ICU to cardiac stepdown floor today. If he continues to stay stable we will plan for discharge tomorrow to home with outpatient cardiology follow-up. #Constipation - Will order miralax and doc senna. Full code Cardiac diet DVT PPX: Patient on Eliquis. Dr. Sen updated the family yesterday in detail. I will call them today as well. Attestations Medical Necessity Statement*: Potential discharge in next 24 to 48 hours. Time Spent in Patient Care: 16 - 35 minutes Coding Level of Care Code Acute Material Control Specialist for [facility] Fwd Diagnoses Prolonged QT interval R94.31 Atrial fibrillation I48.91 Pneumonia J18.9 Cardiomyopathy I42.9 Cardiac arrest I46.9 Chest pain I20.0 Chest pain type: chest pain due to myocardial ischemia Ischemic chest pain type: unstable angina pectoris Sustained VT (ventricular tachycardia) I47.2 Congestive heart failure I50.9 Hypertension I10
--- NOTE | 2021-05-01 12:20 | P.PN_ITS ---
Subjective Subjective: Interval history: Patient is doing well. No chest pain. He is volume overloaded. Vitals/I&O/Wt Last Vital Signs Temp 98.1 F 05/01/21 04:00 Pulse 51 L 05/01/21 10:00 Resp 22 H 05/01/21 10:00 BP 135/61 05/01/21 10:00 Pulse Ox 98 05/01/21 10:00 04/30/21 05/01/21 05/01/21 22:59 06:59 14:59 Intake Total 957 / 2762.375 100 / 2862.375 Output Total 150 / 600 400 / 1000 450 / 450 Balance 807 / 2162.375 -300 / 1862.375 -450 / -450 Weight last 48 hrs Weight 199 lb 5 oz Physical Exam Narrative: EXAM NARRATIVE: NARRATIVE: Alert and oriented x3 NECK: No jugular vein distension. [] HEENT: No cyanosis. No icterus. No pallor. [] HEART: Normal rate and rhythm, S1+S2, grade 2/6 systolic murmur LUNGS: Mild crackles ABDOMEN: Soft, nontender and nondistended. Positive bowel sounds. No guarding, rebound or tenderness. [] CENTRAL NERVOUS SYSTEM: Alert and oriented x 3 EXTREMITIES: Lower extremities with 1+ edema bilaterally. Pulses palpable in the lower extremities, both dorsalis pedis and posterior tibial. [] Urinary Catheter Management^: Whitman: Cath Placed During This Visit: yes, but has since been removed by the nurse Reason for Continuing Indwelling Catheter: Accurate Measurement of Urinary Output in Critically Ill Patients Urinary Catheter Date of Insertion: 04/25/21 Urinary Catheter Time of Insertion: 11:00 Date Urinary Catheter Removed: 04/26/21 Time Urinary Catheter Discontinued: 11:00 Data : 05/02/21 03:25 05/03/21 03:52 Micro: Microbiology 04/25/21 17:22 Blood Culture - Final Blood NO GROWTH AFTER 5 DAYS 04/25/21 17:08 Blood Culture - Final Blood NO GROWTH AFTER 5 DAYS A&P Assessment and plan (1) Sustained VT (ventricular tachycardia): Status: Acute (2) Coronary artery disease: Status: Acute (3) Congestive heart failure: Status: Acute (4) Hypertension: Status: Acute (5) Cardiomyopathy: Status: Acute (6) Atrial fibrillation: Status: Acute (7) Prolonged QT interval: Status: Acute Patient has presented with ventricular tachycardia. Given his recent stents he underwent coronary angiogram that showed patent LAD stent. RCA stents were ostial in location and difficult to engage with the guide catheter. Possible haziness seen in the stent. Given IVUS nonavailability, we proceeded with balloon angioplasty of the stent to ensure excellent flow. VT unlikely to be ischemic in nature as overall patient has good coronary blood supply. Likely secondary to prior scar tissue. As patient has 2 episodes of sustained ventricular tachycardia in last 2-3 weeks, requiring cardioversion, ICD was placed yesterday. Patient went into VT after getting the ICD and had multiple shocks. Cardizem stopped as patient has heart failure symptoms. Continue metoprolol 100 mg twice daily. We will stop lidocaine drip. Mexiletine was again started however patient was having hallucinations which could be from lidocaine drip. Mexiletine is also stopped now. For volume overload, patient has been given lasix 40mg daily Continue Eliquis 5 mg twice daily and plavix 75 daily ECHO shows reduction of EF to 35-40% from 40-45% on last echocardiogram Keep Mg >2, K > 4 Had a discussion with the EP team in [place] who recommend medical therapy at this time as VT ablation would be high risk given his age. Has been started on amiodarone 400mg bid. It will be titrated down to 200 mg twice daily in 1 week. I had a detailed family discussion and family understands the rationale of continued medical therapy and agree with it. Patient also does not want to be transferred out at this time. Thank you for involving us with care of this patient. We will continue to follow. Please call with questions. Attestations Medical Necessity Statement*: Care expected to cross 2 midnights. Coding Level of Care Code Acute Center Human Resources Manager for [facility] Diagnoses Sustained VT (ventricular tachycardia) I47.2 Coronary artery disease I25.10 Congestive heart failure I50.9 Hypertension I10 Cardiomyopathy I42.9 Atrial fibrillation I48.91 Prolonged QT interval R94.31
--- NOTE | 2021-05-01 12:42 | XR_ITS ---
WS: [id number] Exam: XR chest 1V portable [id number] Date/Time of Exam: 05/01/2021 1:00 PM Reason For Exam: shortness of breath Comparison 04/29/2021. Right-sided pleural effusion show slight increase. Very small left basal pleural effusion. The heart is enlarged but unchanged in size. A cardiac pacer superimposes the left chest. The lungs remain full y expanded. No focal infiltrates are seen. Regional bony elements are intact. The mediastinum is unre markable in appearance. XR/XR chest 1V portable [id number] IMPRESSION: 1. Slight increase in right-sided pleural effusion. Small stable appearing left pleural effusion. 2. Cardiac enlargement unchanged. 3. No acute infiltrates are noted.
[2021-05-01] MEDS: FUROsemide 10 mg/mL SDV 2mL 20 MG IVP (14:19)
--- NOTE | 2021-05-01 17:45 | PC.NURSE ---
Patient arrived to floor via wheelchair, pt oriented to room and call das use. Pt is resting in bed with family at bedside.
[2021-05-01 18:32] LABS: NT Pro B Type Natriuretic Pept 3329 pg/mL (0-450)
--- NOTE | 2021-05-01 20:26 | PC.NURSE ---
Received report from SUZY Coronado. Patient resting in bed watching TV. Patient using pillow to splint during cough. Patient s/p code with broken ribs. Instructed patient on Tylenol, metoprolol, cardizem, eliquis. Patient verbalized understanding.
--- NOTE | 2021-05-01 23:05 | PC.NURSE ---
Patient reports not being able to sleep. Stated, I have not slept in 3 nights.
[2021-05-02] VITALS (9 sets, daily range): BP systolic 105–169; BP diastolic 74–80; PULSE 52–67; RESP 19–23; TEMP 36.4–36.9; O2SAT 92–96
[2021-05-02] MEDS: temazepam 15 mg Capsule PO ×2 (00:41→20:02)
[2021-05-02 04:04] LABS: Basophils % 0.7 %; Eosinophils # 0.3 10^3/uL (0.0-0.8); Hematocrit 36.2 % (42.0-52.0); Hemoglobin 11.8 g/dL (11.7-16.6); Lymphocytes # 1.3 10^3/uL (0.8-4.8); Mean Corpuscular HGB Conc 32.6 g/dL (30.0-36.0); Mean Corpuscular Hemoglobin 31.3 pg (28.0-34.0); Mean Platelet Volume 9.5 fL (7.4-10.4); Monocytes # 0.8 10^3/uL (0.2-0.9); Monocytes % 14.3 %; Neutrophils # 3.28 10^3/uL (1.8-7.7); Neutrophils % 56.7 %; Nucleated Red Blood Cells % 0 %; Platelet Count 220 10^3/cmm (130-400); Red Blood Count 3.77 10^6/uL (4.1-5.3); Red Cell Distribution Width 13.8 % (12.1-15.1); White Blood Count 5.8 10^3/uL (4.0-10.0)
[2021-05-02 04:27] LABS: Anion Gap 12.5 (5-19); Blood Urea Nitrogen 10 mg/dL (8-23); Calcium 8.6 mg/dL (8.5-10.5); Carbon Dioxide 24 mmol/L (22-29); Chloride 106 mmol/L (98-107); Glucose 87 mg/dL (65-115); Magnesium 2.1 mg/dL (1.7-2.3); Osmolality Calculated 286 mOsm/kg (285-295); Potassium 3.5 mmol/L (3.5-5.1); Sodium 139 mmol/L (136-145)
[2021-05-02] MEDS: acetaminophen 325 mg Tablet 650 MG PO ×2 (05:47→15:50)
--- NOTE | 2021-05-02 06:12 | PC.NURSE ---
Shift Note Frequent safety and comfort rounds continue. Orders and/or nursing care completed as indicated. Patient monitored for response to intervention and treatment(s). Education provided includes Restoril and Tylenol. Patient verbalized complete understanding. Pateint was given Restoril 15mg PO as documented and ordered by Dr Dorsey. Patient stated, I was able to get a good couple hours of sleep last night. Patient reports feeling much better however still has pain to chest s/p code with rib fx. Tylenol given as ordered. Patient sitting on edge of bed. Patient look good this evening. Patient's heart rate is currently 55-56bpm. Patient denies other needs. No further distress observed. Will continue to monitor.
--- NOTE | 2021-05-02 08:08 | XR_ITS ---
WS: [id number] Exam: XR chest 1V portable [id number] Date/Time of Exam: 05/02/2021 8:10 AM Reason For Exam: follow up Comparison 05/01/2021. Bibasal pleural effusions are noted most marked on the right. Mild cardiac enlargement unchanged. No consolidating infiltrates or pneumothorax. A cardiac pacer superimposes the left chest. XR/XR chest 1V portable [id number] IMPRESSION: 1. Bibasal pleural effusions most marked on the right. Overall, very little jayson nge since previous study.
[2021-05-02] MEDS: metoprolol tartrate 50 mg Tablet 100 MG PO ×2 (08:57→20:02)
[2021-05-02] MEDS: FUROsemide 40 mg Tablet PO (08:57)
[2021-05-02] MEDS: atorvastatin 40 mg Tablet 80 MG PO (08:57)
[2021-05-02] MEDS: clopidogrel 75 mg Tablet PO (08:57)
[2021-05-02] MEDS: apixaban 5 mg Tablet PO ×2 (08:57→20:02)
[2021-05-02] MEDS: amiodarone 200 mg Tablet 400 MG PO ×2 (08:57→17:02)
[2021-05-02] MEDS: pantoprazole 40 mg SDV IVP (08:58)
[2021-05-02] MEDS: FUROsemide 10 mg/mL SDV 4mL 40 MG IVP (08:58)
--- NOTE | 2021-05-02 11:13 | PC.SOCIAL ---
IMM updated IMM updated with patient. Verbalized an understanding. Copy Pg 2 provided. Initialled, dated, timed, and placed in chart.
--- NOTE | 2021-05-02 14:53 | P.PN_ITS ---
Subjective Subjective: Interval history: Seen today. He does not really report any major improvement in his shortness of breath. However he is a little bit better. No acute events overnight. Patient would like to know when he can go home and I told him he cannot leave today. Vitals/I&O/Wt Last Vital Signs Temp 97.6 F 05/02/21 12:00 Pulse 54 L 05/02/21 12:00 Resp 19 H 05/02/21 03:24 BP 105/80 05/02/21 12:00 Pulse Ox 96 05/02/21 12:00 05/01/21 05/02/21 05/02/21 22:59 06:59 14:59 Intake Total 118 / 633 420 / 1053 834 / 834 Output Total 700 / 1325 450 / 1775 1100 / 1100 Balance -582 / -692 -30 / -722 -266 / -266 Weight last 48 hrs Weight 94.892 kg Weight 90.407 kg Physical Exam Narrative: EXAM NARRATIVE: General: Alert oriented x3, seen laying in bed appearing comfortable. HEENT: Normocephalic, atraumatic, EOMI, breathing comfortably. Cardio: Regular rate rhythm, normal S1-S2, no murmurs rubs gallops, Respiratory: Bilateral air entry moderately okay, mild crackles heard at the bases. GI: Abdomen soft, nontender, nondistended, bowel sounds + Behavior: Appropriate and cooperative Extremities: Trace lower extremity edema present., no cyanosis Urinary Catheter Management^: Whitman: Cath Placed During This Visit: yes, but has since been removed by the nurse Reason for Continuing Indwelling Catheter: Accurate Measurement of Urinary Output in Critically Ill Patients Urinary Catheter Date of Insertion: 04/25/21 Urinary Catheter Time of Insertion: 11:00 Date Urinary Catheter Removed: 04/26/21 Time Urinary Catheter Discontinued: 11:00 Data : 05/02/21 03:25 05/02/21 03:25 A&P Assessment and plan (1) Prolonged QT interval: Status: Acute (2) Atrial fibrillation: Status: Acute (3) Pneumonia: Status: Acute (4) Cardiomyopathy: Status: Acute (5) Cardiac arrest: Status: Acute (6) Chest pain: Status: Acute Qualifiers: Chest pain type: chest pain due to myocardial ischemia Ischemic chest pain type: unstable angina pectoris Qualified Code(s): I20.0 - Unstable angina (7) Sustained VT (ventricular tachycardia): Status: Acute (8) Congestive heart failure: Status: Acute (9) Hypertension: Status: Acute Additional A&P Information #Cardiac arrest #V.Tach #Atrial fibrillation #HTN #HLD Unstable V. tach in ER, he was cardioverted twice at 200 J, patient converted to asystole after 2nd cardioversion from asystole converted to V. fib &after administration of epinephrine, atropine bicarb and amiodarone and 3rd cardioversion atrial rhythm was obtained CPR was continued for about 10 minutes He was taken to the Central Communications Specialist, no significant blockage/stenosis noted He was returned to ICU, extubated on 04/25 to 3 L nasal cannula D-Dimer elevated. CTA ruled out PE 04/27 ICD was placed 04/29. Patient had v.tach and was shocked x3 in evening Metoprolol 100 was given and lidocaine ggt started. ICD interrogation requested. Eliquis and Plavix have been continued 04/30 Continue patient on metoprolol 100 twice daily, and amiodarone 400 twice daily as per cardiology recommendations. Patient moved from ICU to the floor 05/01. He complained of shortness of breath yesterday. Chest x-ray was done which showed increasing bilateral pleural effusions right greater than left. BNP was elevated at 3300. Cardizem has now been discontinued as per cardiology recommendations. We will place him on Lasix 40 IV daily to diurese him. Possibility of transferring patient to higher level of care for elec trophysiology study was discussed with family extensively by the computer numeric control setter. After discussing they have decided to pursue medical management for now. #Constipation - Will order miralax and doc senna. Full code Cardiac diet DVT PPX: Patient on Eliquis. Family was updated yesterday. Attestations Medical Necessity Statement*: Will require greater than 2 midnight stay at this point. Coding Level of Care Code Acute Physiological Chemist for Alejandrog Fwd Diagnoses Prolonged QT interval R94.31 Atrial fibrillation I48.91 Pneumonia J18.9 Cardiomyopathy I42.9 Cardiac arrest I46.9 Chest pain I20.0 Chest pain type: chest pain due to myocardial ischemia Ischemic chest pain type: unstable angina pectoris Sustained VT (ventricular tachycardia) I47.2 Congestive heart failure I50.9 Hypertension I10
[2021-05-02] MEDS: benzonatate 100 mg Capsule PO (17:02)
[2021-05-02 18:05] LABS: Anion Gap 12.1 (5-19); Blood Urea Nitrogen 10 mg/dL (8-23); Calcium 8.5 mg/dL (8.5-10.5); Carbon Dioxide 25 mmol/L (22-29); Chloride 103 mmol/L (98-107); Glucose 124 mg/dL (65-115); Osmolality Calculated 284 mOsm/kg (285-295); Potassium 3.1 mmol/L (3.5-5.1); Sodium 137 mmol/L (136-145)
--- NOTE | 2021-05-02 19:42 | PC.NURSE ---
Shift Note Frequent safety and comfort rounds continue. Orders and/or nursing care completed as indicated. Patient monitored for response to intervention and treatment(s). Education provided includes deep breathing and coughing exercises. Patient and/or statement services representative verbalizes understanding. Will continue to monitor.
[2021-05-02] MEDS: potassium chloride oral liq 20 mEq/15 mL UDC 40 MEQ PO (20:01)
[2021-05-03 00:28] VITALS: BP 146/78; PULSE 55; RESP 24; O2SAT 93
[2021-05-03] MEDS: temazepam 15 mg Capsule PO (01:55)
--- NOTE | 2021-05-03 02:04 | PC.NURSE ---
Patient c/o no sleep. Reports only sleeping for about 2.5 hours . Patient had requested another sleeping pill. Informed patient that was probably not possible. Dr Dorsey on the floor at this time. Discussed this with her in passing and received a verbal order to give 2nd dose of Restoril 15mg PO now. RBVO. Instructed patient that this RN was able to talk to the doctor and would be able to give a second of his sleeping medication. Patient most grateful and expressed great thanks verbalizing compete understanding. Patient denies pain or other needs. Report chest pain from post code compressions improving. No distress observed.
[2021-05-03 03:50] VITALS: BP 162/80; PULSE 63; RESP 27; TEMP 36.9; O2SAT 97
[2021-05-03 05:18] VITALS: PULSE 63
[2021-05-03 05:36] LABS: Anion Gap 13.2 (5-19); Blood Urea Nitrogen 8 mg/dL (8-23); Calcium 8.5 mg/dL (8.5-10.5); Carbon Dioxide 24 mmol/L (22-29); Chloride 107 mmol/L (98-107); Glucose 88 mg/dL (65-115); Magnesium 1.9 mg/dL (1.7-2.3); Osmolality Calculated 290 mOsm/kg (285-295); Potassium 3.2 mmol/L (3.5-5.1); Sodium 141 mmol/L (136-145)
--- NOTE | 2021-05-03 06:01 | PC.NURSE ---
Shift Note Frequent safety and comfort rounds continue. Orders and/or nursing care completed as indicated. Patient monitored for response to intervention and treatment(s). Education provided includes Restoril. Patient verbalized understanding. Patient reports being able to sleep with the Restoril however only lasting about two and half hours at a time. Does seem to feel better however and not requesting tylenol as often for his chest pain. Patient stated, I am ready to go home and sleep in my own bed. Patient denies other needs or complaints presently. No distress observed. Will continue to monitor.
[2021-05-03 08:00] VITALS: BP 159/80; PULSE 64; RESP 21; O2SAT 95
--- NOTE | 2021-05-03 08:16 | XRR_ITS ---
PROCEDURE INFORMATION: Exam: XR Chest Exam date and time: 05/03/2021 8:16 AM Age: 85 years old Clinical indication: Shortness of breath; Additional info: Follow up TECHNIQUE: Imaging protocol: XR of the chest. Views: 1 view. COMPARISON: CR XR chest 1V portable [id number] 05/02/2021 8:18 AM FINDINGS: Tubes, catheters and devices: A permanent pacemaker appears intact. Lungs: There is bibasilar opacity consistent with bibasilar infiltration/atelectasis and small effusions. This is more prominently on the right side. Pleural spaces: No pneumothorax. Heart/Mediastinum: The cardiac silhouette is enlarged but unchanged. Bones/joints: Unremarkable. XR/XR chest 1V portable [id number] IMPRESSION: Bibasilar opacity consistent with basilar infiltration/atelectasis and effusions. No significant change.. Radiation Dose CTDIVOL = (mGy): DLP = (mGy-cm)
[2021-05-03] MEDS: potassium chloride oral liq 20 mEq/15 mL UDC 40 MEQ PO (09:27)
[2021-05-03] MEDS: clopidogrel 75 mg Tablet PO (09:27)
[2021-05-03] MEDS: pantoprazole 40 mg SDV IVP (09:27)
[2021-05-03] MEDS: atorvastatin 40 mg Tablet 80 MG PO (09:27)
[2021-05-03] MEDS: FUROsemide 10 mg/mL SDV 4mL 40 MG IVP ×2 (09:27→14:24)
[2021-05-03] MEDS: metoprolol tartrate 50 mg Tablet 100 MG PO (09:28)
[2021-05-03] MEDS: amiodarone 200 mg Tablet 400 MG PO (09:28)
[2021-05-03] MEDS: apixaban 5 mg Tablet PO (09:30)
[2021-05-03 10:08] LABS: NT Pro B Type Natriuretic Pept 2597 pg/mL (0-450)
--- NOTE | 2021-05-03 11:51 | P.DS_ITS ---
Discharge Providers Date of Admission: 04/25/21 11:20 Date of Discharge: May 03, 2021 Attending Provider at Admission: Emmanuel Villarreal MD Attending Provider at Discharge: Charley Covington MD Primary Care Provider: Gene Peralta Diagnoses at Discharge Discharge Diagnosis (1) Sustained VT (ventricular tachycardia): Status: Resolved Permanent problem details: Continue current regimen including beta-ashley, amiodarone. Appear to be stable not in VT anymore. Can be discharged home. (2) Coronary artery disease: Status: Resolved (3) Congestive heart failure: Status: Acute Permanent problem details: Well compensated, continue current continue current regimen (4) Hypertension: Status: Acute Permanent problem details: Well-controlled (5) Cardiomyopathy: Status: Acute Permanent problem details: History of ischemic cardiomyopathy, do not need revascularization, continue optimal medical regimen (6) Atrial fibrillation: Status: Acute Permanent problem details: Rate control on anticoagulation (7) Prolonged QT interval: Status: Resolved Reason for Visit Reason for Visit: SVT, CHEST PAIN Hospital Course Hospital Course Jesus Saucedo is a 85 year old male who presents to the hospital with shortness of breath. Apparently he was in ventricular tachycardia at an accelerated rate over 200. Cardioversion was attempted, and he ended up going into ventricular fibrillation. He received several doses of amiodarone and was placed on an amiodarone drip. He received CPR. He received at least 2 doses of epinephrine, 1 dose of bicarb, 1 dose of atropine. Eventually sinus rhythm was achieved. During this time he was intubated. He has been taken to the [facility] for evaluation of his coronary arteries, and plan is to admit him to the ICU following this. He had a similar admission April 11 for which an LAD stent was placed. He was discharged on the . Ejection fraction at that time was approximately 40% with mild valvular abnormalities and inferior wall motion abnormality. Following the code he came awake, was able to look around prior to sedation. Course Unstable V. tach in ER, he was cardioverted twice at 200 J, patient converted to asystole after 2nd cardioversion from asystole converted to V. fib &after administration of epinephrine, atropine bicarb and amiodarone and 3rd cardioversion atrial rhythm was obtained CPR was continued for about 10 minutes He was taken to the [facility], no significant blockage/stenosis noted He was returned to ICU, extubated on 04/25 to 3 L nasal cannula D-Dimer elevated. CTA ruled out PE 04/27 ICD was placed 04/29. Patient had v.tach and was shocked x3 in evening Metoprolol 100 was given and lidocaine ggt started. ICD interrogation requested. Eliquis and Plavix have been continued 04/30 Continue patient on metoprolol 100 twice daily, and amiodarone 400 twice daily as per cardiology recommendations. Patient moved from ICU to the floor 05/01. Patient developed acute on chronic systolic HF. Chest x-ray was done which showed increasing bilateral pleural effusions right greater than left. BNP was elevated at 3300. Cardizem has now been discontinued as per cardiology recommendations. He was diuresed with IV lasix. Possibility of transferring patient to higher level of care for electrophysiology study was discussed with family extensively by the top case assembler. After discussing they have decided to pursue medical management for now. Patient was moved to [facility]. AFter addequate diuresis, patient was discharged home. His new medications were sent to [facility] as it was a weekend. It was confirmed from patient that he would be able to diamond picker his prescriptions. He was discharged to follow closely with cardiology.Patient's discharged med rec was personally done by cardiology and I was asked to only place discharge order. Physical Exam Narrative: EXAM NARRATIVE: General: Alert oriented x3, seen laying in bed appearing comfortable. HEENT: Normocephalic, atraumatic, EOMI, breathing comfortably. Cardio: Regular rate rhythm, normal S1-S2, no murmurs rubs gallops, Respiratory: Bilateral air entry moderately okay, lungs CTA GI: Abdomen soft, nontender, nondistended, bowel sounds + Behavior: Appropriate and cooperative Extremities: Trace lower extremity edema present., no cyanosis Urinary Catheter Management^: Whitman: Cath Placed During This Visit: yes, but has since been removed by the nurse Reason for Continuing Indwelling Catheter: Accurate Measurement of Urinary Output in Critically Ill Patients Urinary Catheter Date of Insertion: 04/25/21 Urinary Catheter Time of Insertion: 11:00 Date Urinary Catheter Removed: 04/26/21 Time Urinary Catheter Discontinued: 11:00 Discharge Data Data Completed and Pending: Completed Studies During Hospitalization Category Date Time Status CT angio chest PE protcl [id number] Rout ine Cat Scan 04/27/21 07:00 Completed CXRP [XR chest 1V portable [id number]] R outine Exams 04/25/21 14:54 Completed CXRP [XR chest 1V portable [id number]] R outine Exams 04/26/21 08:46 Completed XR chest 1V mary ble [id number] Routine Exams 04/29/21 08:00 Completed XR chest 1V mary ble [id number] Routine Exams 04/29/21 12:35 Completed XR chest 1V mary ble [id number] Stat Exams 04/25/21 10:52 Completed XR chest 1V mary ble [id number] Stat Exams 05/01/21 12:42 Completed XR chest 1V mary ble [id number] Urgent Exams 05/02/21 08:08 Completed XR chest 1V mary ble [id number] Urgent Exams 05/03/21 08:16 Completed CV. echo limited [id number] Routine Ultrasound 04/25/21 12:03 Completed Pending at discharge Category Date Time Status PHARMACIST HELPER request for service Stat Exams 04/25/21 11:07 Taken Labs from last 24 hours 05/03/21 05/03/21 05/02/21 03:52 03:52 17:36 Sodium 141 137 Potassium 3.2 L 3.1 L Chloride 107 103 Carbon Dioxide 24 25 Anion Gap 13.2 12.1 BUN 8 10 Creatinine 0.7 0.6 L GFR Calculation Not Reportable Not Reportable Glucose 88 124 H Calculated Osmolal ity 290 284 L Calcium 8.5 8.5 Magnesium 1.9 2.0 NT-Pro-B Natriuret Pep 2597 H Vitals: Last Vital Signs Temp 98.5 F 05/03/21 03:50 Pulse 64 05/03/21 08:00 Resp 21 H 05/03/21 08:00 BP 159/80 05/03/21 08:00 Pulse Ox 95 05/03/21 08:00 Discharge Plan Discharge Patient Disposition: Home Condition: Stable Prescriptions: New metoprolol tartrate 50 mg Tablet 100 mg PO BID@0900,2100 30 Days Qty: 120 RF: 0 Pacerone 200 mg Tablet 400 mg PO BID 30 Days Qty: 120 RF: 0 Continued losartan 100 mg tablet 150 mg PO DAILY Qty: 240 RF: 3 furosemide 40 mg tablet 40 mg PO DAILY Qty: 90 RF: 3 isosorbide mononitrate 30 mg tablet extended release 24 hr 30 mg PO DAILY RF: 0 potassium chloride 20 mEq tablet,ER particles/crystals 20 meq PO BID RF: 0 nitroglycerin 0.4 mg tablet, sublingual 0.4 mg sublingual Q5MIN PRN (Reason: Chest Pain) RF: 0 rosuvastatin 40 mg tablet 40 mg PO DAILY RF: 0 Eliquis 5 mg Tablet 5 mg PO BID@0900,2100 Qty: 90 RF: 3 clopidogrel 75 mg Tablet 75 mg PO DAILY Qty: 90 RF: 3 Centrum Silver 400-250 mcg Tablet,Chewable 1 tab PO DAILY RF: 0 Discontinued metoprolol tartrate 25 mg tablet 12.5 mg PO BID RF: 0 ezetimibe 10 mg tablet 10 mg PO DAILY RF: 0 amlodipine 5 mg Tablet 5 mg PO DAILY Qty: 90 RF: 3 mexiletine 200 mg PO TID RF: 0 Discharge Orders: Discharge Order (Routine); Ordered 05/03/21 Ordered By: Charley Covington Referrals: [facility] [Outside] Ayaan Sen M.D [Physician] - 1 month ([facility] will contact you to schedule an follow-up appointment with Dr. Sen in 1 month. If you haven't heard from them by Wednesday. Please call ) Gene Peralta [Primary Care Provider] - 05/09/21 ([facility] will contact you to schedule an follow-up appointment in 4 to 7 days. If you haven't heard from them by Wednesday. Please call ) Nancy Jorgensen FNP [Nurse Practitioner] - 05/08/21 ([facility] will contact you to schedule an follow-up appointment in 1 week. If you haven't heard from them by Wednesday. Please call ) Discharge Diet: Cardiac and Low Salt Discharge Activity: Increase activity as tolerated Patient Instructions: Metoprolol (By mouth), Amiodarone (By mouth), A-fib (Atrial Fibrillation) (DC), Coronary Angioplasty (DC), CHF Stoplight, Chest Pain Stoplight, Opioid Safety, Pneumonia Stoplight, Post Pacemaker - Diamond Discharge Attestations Time Spent in Discharge Care*: greater than 30 min Quality Metrics Clinical Quality Measures During this hospital stay, did patient experience: AMI Clinical Trial Participant: No Contraindication to aspirin (AMI): Aspirin given Contraindication to statin: Statin prescribed Contraindication to PCI: PCI performed Coding Level of Care Code Acute Chg FW DC note Diagnoses Sustained VT (ventricular tachycardia) I47.2 Coronary artery disease I25.10 Congestive heart failure I50.9 Hypertension I10 Cardiomyopathy I42.9 Atrial fibrillation I48.91 Prolonged QT interval R94.31
--- NOTE | 2021-05-03 12:42 | PM.PN ---
Subjective Subjective: Interval history: No more significant arrhythmia patient is status post ICD and left angiogram. Overall he is fine and would like to go home Vitals/I&O/Wt Last Vital Signs Temp 98.5 F 05/03/21 03:50 Pulse 64 05/03/21 08:00 Resp 21 H 05/03/21 08:00 BP 159/80 05/03/21 08:00 Pulse Ox 95 05/03/21 08:00 05/02/21 05/03/21 05/03/21 22:59 06:59 14:59 Intake Total 237 / 1071 Output Total 450 / 1550 750 / 2300 350 / 350 Balance -213 / -479 -750 / -1229 -350 / -350 Weight last 48 hrs Weight 206 lb 3.2 oz Weight 209 lb 3.2 oz Physical Exam Narrative: EXAM NARRATIVE: GENERAL: Patient is alert, awake and oriented x3. NECK: No jugular vein distension. HEENT: No cyanosis. No icterus. No pallor. HEART: Regular S1 and S2. No murmur, rub or gallop. LUNGS: Clear to auscultate bilaterally. ABDOMEN: Soft, nontender and nondistended. Positive bowel sounds. No guarding, rebound or tenderness. CENTRAL NERVOUS SYSTEM: Grossly nonfocal. EXTREMITIES: Lower extremities without edema bilaterally. Urinary Catheter Management^: Whitman: Cath Placed During This Visit: yes, but has since been removed by the nurse Reason for Continuing Indwelling Catheter: Accurate Measurement of Urinary Output in Critically Ill Patients Urinary Catheter Date of Insertion: 04/25/21 Urinary Catheter Time of Insertion: 11:00 Date Urinary Catheter Removed: 04/26/21 Time Urinary Catheter Discontinued: 11:00 Data : 05/02/21 03:25 05/03/21 03:52 A&P Assessment and plan (1) Sustained VT (ventricular tachycardia): Status: Acute (2) Coronary artery disease: Status: Acute (3) Congestive heart failure: Status: Acute (4) Hypertension: Status: Acute (5) Cardiomyopathy: Status: Acute (6) Atrial fibrillation: Status: Acute (7) Prolonged QT interval: Status: Acute Patient has presented with ventricular tachycardia. Given his recent stents he underwent coronary angiogram that showed patent LAD stent. RCA stents were ostial in location and difficult to engage with the guide catheter. Possible haziness seen in the stent. Given IVUS nonavailability, we proceeded with balloon angioplasty of the stent to ensure excellent flow. VT unlikely to be ischemic in nature as overall patient has good coronary blood supply. Likely secondary to prior scar tissue. As patient has 2 episodes of sustained ventricular tachycardia in last 2-3 weeks, requiring cardioversion, ICD was placed yesterday. Patient went into VT after getting the ICD and had multiple shocks. Cardizem stopped as patient has heart failure symptoms. Continue metoprolol 100 mg twice daily. We will stop lidocaine drip. Mexiletine was again started however patient was having hallucinations which could be from lidocaine drip. Mexiletine is also stopped now. For volume overload, patient has been given lasix 40mg daily Continue Eliquis 5 mg twice daily and plavix 75 daily ECHO shows reduction of EF to 35-40% from 40-45% on last echocardiogram Keep Mg >2, K > 4 Had a discussion with the EP team in [place] who recommend medical therapy at this time as VT ablation would be high risk given his age. Has been started on amiodarone 400mg bid. It will be titrated down to 200 mg twice daily in 1 week. I had a detailed family discussion and family understands the rationale of continued medical therapy and agree with it. Patient also does not want to be transferred out at this time. Thank you for involving us with care of this patient. We will continue to follow. Please call with questions. Attestations Medical Necessity Statement*: From cardiovascular perspective patient can be discharged home, follow up with Nancy treadwell in [address] Sen in 4 weeks Coding Level of Care Code Established Pt Acute Physician Office Nurse for Lawson Fwkaycee Patient Type Established History Detailed Exam Detailed Medical Decision Making Moderate Complexity Diagnoses Sustained VT (ventricular tachycardia) I47.2 Coronary artery disease I25.10 Congestive heart failure I50.9 Hypertension I10 Cardiomyopathy I42.9 Atrial fibrillation I48.91 Prolonged QT interval R94.31
[2021-05-03] MEDS: benzonatate 100 mg Capsule PO (14:23)
[2021-05-03] MEDS: acetaminophen 325 mg Tablet 650 MG PO (14:23)
[2021-05-03 14:40] VITALS: O2SAT 93; O2SAT 95
[2021-05-03 15:15] VITALS: BP 164/90; PULSE 60; RESP 18; O2SAT 95
--- NOTE | 2021-05-03 15:15 | PC.NURSE ---
Discharge Note Patient discharged to Home via Private vehicle accompanied by family. Discharge instructions reviewed with patient and/or manufacturer's representative. Mobile pharmacy medications and/or prescriptions provided. Belongings/home medications returned.
== END 2021-05-03 15:15 | disposition home health service (06) | DRG 224 ==
LOC: ER 11:21 → ICU 11:25 → CSU 05-01 17:22
PROVIDERS: Hospitalist; Internal Medicine; Thoracic Surgery (Cardiothoracic Vascular Surgery); Admitting Provider Internal Medicine; Emergency Provider Family Medicine; PCP Family Medicine; Visit Provider Internal Medicine
PROC: B211YZZ Fluoroscopy of Multiple Coronary Arteries using Other Contrast (ICD-10-PCS; principal; 2021-04-25 11:00)
PROC: 0JH608Z Insertion of Defibrillator Generator into Chest Subcutaneous Tissue and Fascia, Open Approach (ICD-10-PCS; CPT 33249; principal; 2021-04-29 13:30)
DX: I47.1 Supraventricular tachycardia (principal); I50.23 Acute on chronic systolic (congestive) heart failure; I25.110 Atherosclerotic heart disease of native coronary artery with unstable angina pectoris; T82.855A Stenosis of coronary artery stent, initial encounter; I42.9 Cardiomyopathy, unspecified; Z95.5 Presence of coronary angioplasty implant and graft; Y71.1 Therapeutic (nonsurgical) and rehabilitative cardiovascular devices associated with adverse incidents; Z88.8 Allergy status to other drugs, medicaments and biological substances; I11.0 Hypertensive heart disease with heart failure; I46.9 Cardiac arrest, cause unspecified; I48.91 Unspecified atrial fibrillation; Z79.02 Long term (current) use of antithrombotics/antiplatelets; Z79.01 Long term (current) use of anticoagulants; K59.00 Constipation, unspecified; T46.2X5A Adverse effect of other antidysrhythmic drugs, initial encounter; H53.8 Other visual disturbances
CPT/HCPCS: 36415; 36416; 36600; 51702; 71045; 71275; 76000; 80048; 80051; 80053; 80202; 81001; 82330; 82805; 82962; 83735; 83880; 84100; 84145; 84443; 84484; 85025; 85378; 85730; 86140; 87040; 87070; 87077; 87086; 87186; 87205; 87426; 87641; 92920; 93005; 93308; 94002; 94799; 97116; 97161; 99291; C1722; C1725; C1760; C1769; C1777; C1887; C1894; C9113; J0171; J0282; J0461; J0690; J1170; J1644; J1940; J2001; J2250; J2270; J2543; J2704; J3010; J3370; J3475; J3480; J3490; J7060; Q9967

== ENCOUNTER → 2021-05-08 16:21 | Outpatient (BNVA) | payer MEDICARE, OTHER, SELFPAY | PROVIDERS: PCP Family Medicine; Visit Provider Nurse Practitioner Family | DX: I50.9 Heart failure, unspecified (principal); I10 Essential (primary) hypertension; I48.91 Unspecified atrial fibrillation; Z95.810 Presence of automatic (implantable) cardiac defibrillator | CPT/HCPCS: 80048 ==

== ENCOUNTER → 2021-05-21 15:49 | Outpatient (BNVA) | payer MEDICARE, OTHER, SELFPAY | PROVIDERS: PCP Family Medicine; Visit Provider Internal Medicine | DX: I42.9 Cardiomyopathy, unspecified (principal); I25.10 Atherosclerotic heart disease of native coronary artery without angina pectoris; E78.5 Hyperlipidemia, unspecified; I10 Essential (primary) hypertension | CPT/HCPCS: 80048; 83880 ==

== ENCOUNTER → 2021-06-12 08:50 | Outpatient (BNVA) | payer MEDICARE, OTHER, SELFPAY | PROVIDERS: PCP Family Medicine; Visit Provider Internal Medicine | DX: I42.9 Cardiomyopathy, unspecified (principal); E78.5 Hyperlipidemia, unspecified | CPT/HCPCS: 80048; 83880 ==

== ENCOUNTER → 2021-07-28 08:40 | Outpatient (BNVA) | payer MEDICARE, OTHER, SELFPAY | PROVIDERS: PCP Family Medicine; Visit Provider Internal Medicine | DX: E78.5 Hyperlipidemia, unspecified (principal); I10 Essential (primary) hypertension; I25.10 Atherosclerotic heart disease of native coronary artery without angina pectoris; I42.9 Cardiomyopathy, unspecified | CPT/HCPCS: 80048; 83880 ==

== ENCOUNTER 2021-11-08 04:31 | Emergency (ER) | payer MEDICARE, OTHER, SELFPAY ==
[2021-11-08 04:37] VITALS: BP 125/83; PULSE 50; RESP 20; TEMP 37.1; O2SAT 98; BMI 28.3
[2021-11-08 04:54] VITALS: BP 131/80; PULSE 50; RESP 20; O2SAT 96
--- NOTE | 2021-11-08 05:13 | XRR_ITS ---
PROCEDURE INFORMATION: Exam: XR Chest Exam date and time: 11/08/2021 5:24 AM Age: 85 years old Clinical indication: Shortness of breath. Pacemaker. Coronary stent. History of prostate cancer. TECHNIQUE: Imaging protocol: XR of the chest. Views: 1 view. COMPARISON: CR XR chest 1V portable [id number] 05/03/2021 8:43 AM FINDINGS: Tubes, catheters and devices: A left subclavian AICD is again noted. Lungs: There is hazy opacity in the peripheral mid right chest which may reflect developing pneumonia. Consider CT to better characterize if clinically warranted. Probable bibasilar atelectasis. Pleural spaces: No pleural effusion. No pneumothorax. Heart/Mediastinum: The cardiac silhouette is unchanged. No gross evidence of pneumomediastinum. Bones/joints: No gross fracture. XR/XR chest 1V portable [id number] IMPRESSION: 1. There is hazy opacity in the peripheral mid right chest which may reflect developing pneumonia. Consider CT to better characterize if clinically warranted. 2. Stable cardiomegaly.
--- NOTE | 2021-11-08 05:15 | ECG_ITS ---
[facility] Test Date: 2021-11-08 Pat Name: Jesus Saucedo Department: Room: Gender: Male Environmental Science Instructor: : 1935 Requested By: Jeff Easton Order Number: [id number] Anders MD: Mike Gonzalez M.D. Measurements Intervals [place] Rate: 50 P: DC: QRS: -58 QRSD: 189 T: 148 QT: 557 QTc: 508 Interpretive Statements ELECTRONIC VENTRICULAR PACEMAKER-100% V paced rhythm PROLONGED QT INTERVAL CRITICAL TEST RESULT Compared to ECG 04/28/2021 15:37:09 Prolonged QT interval now present T-wave abnormality no longer present Possible ischemia no longer present Electronically Signed On 11-08-2021 21:58:32 CDT by Mike Gonzalez M.D. [email or web address]
--- NOTE | 2021-11-08 05:46 | ED_ITS ---
Documented by User: Jeff Eid DO 11/08/21 19:26 HPI - SOB/Dyspnea General: Chief Complaint: Shortness of Breath/Dyspnea Stated Complaint: SOB Time Seen by Provider: 11/08/21 04:51 Source: patient and family History of Present Illness: HPI Narrative: 85-year-old gentleman with a history of heart failure. He is here with shortness of breath. He states that he cannot walk much more than 15 to 20 feet without shortness of breath. He has trouble lying flat. He essentially has 3 pillow orthopnea. He denies any fever, cough, congestion. He has noticed some increased leg swelling. He refuses an IV this morning. MD elicited complaint: shortness of breath Pertinent past history: congestive heart failure Onset (ago): day(s) Context: anxiety (According to daughter) Timing: intermittent Severity: moderate Exacerbating factors: lying flat and exertion Relieving factors: oxygen Known history of: congestive heart failure Associated symptoms: Reports cough (Mild nonproductive); Deny abdominal pain, chest congestion, chest pain, fever(s), nausea, palpitations or vomiting Treatment prior to arrival: none Review of Systems Const: Denies: fever(s) ENMT: Denies: throat pain Card: Denies: chest pain or palpitations Resp: Reports: dyspnea and non-productive cough (Mild); Denies: productive cough or chest congestion GI: Denies: abdominal pain, nausea or vomiting Psych: Reports: anxiety [facility] ED PFSH: Medical History Acute AL Acute non-ST elevation myocardial infarction (NSTEMI) Atrial fibrillation Rate control on anticoagulation Coronary artery disease Coronary artery disease Hyperlipidemia Hypertension Well-controlled Sustained VT (ventricular tachycardia) Continue current regimen including beta-ashley, amiodarone. Appear to be stable not in VT anymore. Can be discharged home. Ventricular tachycardia Surgical History Stented coronary artery Social History Smoking and tobacco status: current every day smoker smokeless tobacco Smokeless tobacco user: chewing tobacco Alcohol intake: never Physical Exam Const: GENERAL APPEARANCE: cooperative and frail appearing (Mildly) ORIENTATION/CONSCIOUSNESS: Yes awake, Yes oriented to person, Yes oriented to place and Yes oriented to time HENMT: COMMON NORMALS: normocephalic, atraumatic and Normal external nose present HEAD & SCALP: normocephalic and atraumatic NOSE: Normal external nose present Eye: COMMON NORMALS: Equal, round and reactive pupils present and EOMs intact bilaterally PUPIL: Yes Equal, round and reactive pupils present Chest: COMMONS NORMALS: normal inspection of the chest CHEST: Yes Symmetrical chest wall rise Resp: COMMON NORMALS: clear to auscultation bilaterally EFFORT & INSPECTION: Yes tachypneic, No labored and No tracheal deviation AUSCULTATION: clear to auscultation bilaterally, no rhonchi and wheezes expiratory wheezes Cardio: COMMON NORMALS: regular rate RATE: regular rate RHYTHM: abnormal rhythm irregularly irregular GI: COMMON NORMALS: Normal to inspection, nondistended, normoactive bowel sounds present, Soft to palpation and non-tender PALPATION: Yes Soft to palpation Extremity: GENERAL: Yes edema Neuro: SENSORIUM/ORIENTATION: Yes oriented to person, Yes oriented to place and Yes oriented to time Course Vital Signs: Vital signs: Vital Signs Temperature 98.8 F 11/08/21 04:37 Pulse Rate 50 L 11/08/21 10:24 Respiratory Rate 18 11/08/21 10:24 Blood Pressure 131/87 11/08/21 10:24 Pulse Oximetry 94 11/08/21 10:24 MDM - SOB/Dyspnea Lab Data : 11/08/21 05:48 11/08/21 05:48 Labs/Radiology: Radiology Impressions Chest X-Ray 11/08/21 05:13 IMPRESSION: 1. There is hazy opacity in the peripheral mid right chest which may reflect developing pneumonia. Consider CT to better characterize if clinically warranted. 2. Stable cardiomegaly. Laboratory Results WBC 5.8 10^3/uL (4.0-10.0) 11/08/21 05:48 RBC 3.21 10^6/uL (4.1-5.3) L 11/08/21 05:48 Hgb 9.9 g/dL (11.7-16.6) L 11/08/21 05:48 Hct 31.7 % (42.0-52.0) L 11/08/21 05:48 MCV 98.8 fl (80-94) H 11/08/21 05:48 MCH 30.8 pg (28.0-34.0) 11/08/21 05:48 MCHC 31.2 g/dL (30.0-36.0) 11/08/21 05:48 RDW 14.8 % (12.1-15.1) 11/08/21 05:48 Plt Count 191 10^3/cmm (130-400) 11/08/21 05:48 MPV 9.8 fL (7.4-10.4) 11/08/21 05:48 Neut % (Auto) 56.4 % 11/08/21 05:48 Lymph % (Auto) 28.0 % 11/08/21 05:48 [place] % (Auto) 11.4 % 11/08/21 05:48 Eos % (Auto) 3.1 % 11/08/21 05:48 Baso % (Auto) 0.9 % 11/08/21 05:48 Neut # (Auto) 3.26 10^3/uL (1.8-7.7) 11/08/21 05:48 Lymph # (Auto) 1.6 10^3/uL (0.8-4.8) 11/08/21 05:48 [place] # (Auto) 0.7 10^3/uL (0.2-0.9) 11/08/21 05:48 Eos # (Auto) 0.2 10^3/uL (0.0-0.8) 11/08/21 05:48 Baso # (Auto) 0.1 10^3/uL (0.0-0.1) 11/08/21 05:48 Nucleated RBC % (auto) 0 % 11/08/21 05:48 Nucleated RBCs # 0.0 /100WBC 11/08/21 05:48 Sodium 140 mmol/L (136-145) 11/08/21 05:48 Potassium 3.9 mmol/L (3.5-5.1) 11/08/21 05:48 Chloride 106 mmol/L (98-107) 11/08/21 05:48 Carbon Dioxide 23 mmol/L (22-29) 11/08/21 05:48 Anion Gap 14.9 (5-19) 11/08/21 05:48 BUN 19 mg/dL (8-23) 11/08/21 05:48 Creatinine 1.4 mg/dL (0.7-1.2) H 11/08/21 05:48 GFR Calculation Not Reportable 11/08/21 05:48 Glucose 99 mg/dL (65-115) 11/08/21 05:48 Calculated Osmolality 292 mOsm/kg (285-295) 11/08/21 05:48 Calcium 9.4 mg/dL (8.5-10.5) 11/08/21 05:48 Magnesium 2.5 mg/dL (1.7-2.3) H 11/08/21 05:48 Total Bilirubin 0.5 mg/dL (0.15-1.2) 11/08/21 05:48 AST 21 U/L (0-40) 11/08/21 05:48 ALT 21 U/L (0-41) 11/08/21 05:48 Alkaline Phosphatase 68 IU/L (40-130) 11/08/21 05:48 Troponin T Baseline 26 ng/L (0-15) H 11/08/21 05:48 Troponin T 120 Minute 26.21 ng/L (0-15) H 11/08/21 08:11 Delta Troponin T 0.21 ABS# (0-10) 11/08/21 08:11 NT-Pro-B Natriuret Pep 2595 pg/mL (0-450) H 11/08/21 05:48 Total Protein 6.5 g/dL (6.6-8.7) L 11/08/21 05:48 Albumin 3.8 g/dL (3.5-5.2) 11/08/21 05:48 Globulin 2.7 g/dL (1.3-4.6) 11/08/21 05:48 Discharge Plan Discharge Patient Disposition: Home Clinical Impression: Congestive heart failure, Atrial fibrillation Condition: Stable Prescriptions: Changed furosemide 40 mg tablet 40 mg PO BID Qty: 0 0RF Rx Instructions: Take 1.5 in the morning and take 1 tab in the afternoon. No Action acetaminophen [Tylenol Extra Strength] 500 mg tablet 500 mg PO Q6H PRN0RF losartan 100 mg tablet 100 mg PO DAILY 0RF budesonide-formoterol 160-4.5 mcg/actuation HFA aerosol inhaler 2 puff inhalation BID 0RF albuterol sulfate 90 mcg/actuation HFA aerosol inhaler 2 puff inhalation BID 0RF Pacerone 200 mg tablet 200 mg PO DAILY Qty: 90 3RF isosorbide mononitrate 30 mg tablet extended release 24 hr 30 mg PO DAILY 0RF potassium chloride 20 mEq tablet,ER particles/crystals 20 meq PO BID 0RF nitroglycerin 0.4 mg tablet, sublingual 0.4 mg sublingual Q5MIN PRN (Reason: Chest Pain) 0RF rosuvastatin 40 mg tablet 40 mg PO DAILY 0RF Eliquis 5 mg Tablet 5 mg PO BID@0900,2100 Qty: 90 3RF clopidogrel 75 mg Tablet 75 mg PO DAILY Qty: 90 3RF Centrum Silver 400-250 mcg Tablet,Chewable 1 tab PO DAILY 0RF Discharge Orders: Discharge ED (Routine); Ordered 11/08/21 Ordered By: Jayant Nowak Referrals: Gene Peralta [Primary Care Provider] - Discharge Diet: Usual diet Discharge Activity: Increase activity as tolerated Patient Instructions: Opioid Safety Activity Restrictions/Additional Instructions: Activities as tolerated. Increase your Lasix to 40 mg twice daily. During that time and take your potassium 3 times daily. Recheck with your primary care doctor within 1 week. Sign Out Sign Out Data: Patient Sign Out occurred on 11/08/21 at 06:43. Patient's care was discussed, and care was transferred from to Jayant Nowak DO. Coding Level of Care Code ED [place] Counselor for Chg Fwd Documented by User: Jayant Nowak DO 11/08/21 11:01 HPI - SOB/Dyspnea General: Chief Complaint: Shortness of Breath/Dyspnea Stated Complaint: SOB Time Seen by Provider: 11/08/21 04:51 PFSH ED PFSH: Medical History Acute AL Acute non-ST elevation myocardial infarction (NSTEMI) Atrial fibrillation Rate control on anticoagulation Coronary artery disease Coronary artery disease Hyperlipidemia Hypertension Well-controlled Sustained VT (ventricular tachycardia) Continue current regimen including beta-ashley, amiodarone. Appear to be stable not in VT anymore. Can be discharged home. Ventricular tachycardia Surgical History Stented coronary artery Social History Smoking and tobacco status: current every day smoker smokeless tobacco Smokeless tobacco user: chewing tobacco Alcohol intake: never Course Vital Signs: Vital signs: Vital Signs Temperature 98.8 F 11/08/21 04:37 Pulse Rate 50 L 11/08/21 10:24 Respiratory Rate 18 11/08/21 10:24 Blood Pressure 131/87 11/08/21 10:24 Pulse Oximetry 94 11/08/21 10:24 MDM - SOB/Dyspnea Medical Decision Making Care assumed a change of shift from Dr. Eid. Patient states he is feeling better. He was given Lasix by Dr. Eid he has had improvement since he began diuresing. He has no chest pain prefers to just go home. Looks like he is in exacerbation of his CHF. We will increase his Lasix to 40 twice daily have him take potassium 3 times daily for the next several days follow-up with his primary care doctor or court officer within the week. Return if he has further problems. Medical Records I reviewed the patient's medical records. Lab Data I reviewed the patient's lab results. : 11/08/21 05:48 11/08/21 05:48 Labs/Radiology: Radiology Impressions Chest X-Ray 11/08/21 05:13 IMPRESSION: 1. There is hazy opacity in the peripheral mid right chest which may reflect developing pneumonia. Consider CT to better characterize if clinically warranted. 2. Stable cardiomegaly. Laboratory Results WBC 5.8 10^3/uL (4.0-10.0) 11/08/21 05:48 RBC 3.21 10^6/uL (4.1-5.3) L 11/08/21 05:48 Hgb 9.9 g/dL (11.7-16.6) L 11/08/21 05:48 Hct 31.7 % (42.0-52.0) L 11/08/21 05:48 MCV 98.8 fl (80-94) H 11/08/21 05:48 MCH 30.8 pg (28.0-34.0) 11/08/21 05:48 MCHC 31.2 g/dL (30.0-36.0) 11/08/21 05:48 RDW 14.8 % (12.1-15.1) 11/08/21 05:48 Plt Count 191 10^3/cmm (130-400) 11/08/21 05:48 MPV 9.8 fL (7.4-10.4) 11/08/21 05:48 Neut % (Auto) 56.4 % 11/08/21 05:48 Lymph % (Auto) 28.0 % 11/08/21 05:48 [place] % (Auto) 11.4 % 11/08/21 05:48 Eos % (Auto) 3.1 % 11/08/21 05:48 Baso % (Auto) 0.9 % 11/08/21 05:48 Neut # (Auto) 3.26 10^3/uL (1.8-7.7) 11/08/21 05:48 Lymph # (Auto) 1.6 10^3/uL (0.8-4.8) 11/08/21 05:48 [place] # (Auto) 0.7 10^3/uL (0.2-0.9) 11/08/21 05:48 Eos # (Auto) 0.2 10^3/uL (0.0-0.8) 11/08/21 05:48 Baso # (Auto) 0.1 10^3/uL (0.0-0.1) 11/08/21 05:48 Nucleated RBC % (auto) 0 % 11/08/21 05:48 Nucleated RBCs # 0.0 /100WBC 11/08/21 05:48 Sodium 140 mmol/L (136-145) 11/08/21 05:48 Potassium 3.9 mmol/L (3.5-5.1) 11/08/21 05:48 Chloride 106 mmol/L (98-107) 11/08/21 05:48 Carbon Dioxide 23 mmol/L (22-29) 11/08/21 05:48 Anion Gap 14.9 (5-19) 11/08/21 05:48 BUN 19 mg/dL (8-23) 11/08/21 05:48 Creatinine 1.4 mg/dL (0.7-1.2) H 11/08/21 05:48 GFR Calculation Not Reportable 11/08/21 05:48 Glucose 99 mg/dL (65-115) 11/08/21 05:48 Calculated Osmolality 292 mOsm/kg (285-295) 11/08/21 05:48 Calcium 9.4 mg/dL (8.5-10.5) 11/08/21 05:48 Magnesium 2.5 mg/dL (1.7-2.3) H 11/08/21 05:48 Total Bilirubin 0.5 mg/dL (0.15-1.2) 11/08/21 05:48 AST 21 U/L (0-40) 11/08/21 05:48 ALT 21 U/L (0-41) 11/08/21 05:48 Alkaline Phosphatase 68 IU/L (40-130) 11/08/21 05:48 Troponin T Baseline 26 ng/L (0-15) H 11/08/21 05:48 Troponin T 120 Minute 26.21 ng/L (0-15) H 11/08/21 08:11 Delta Troponin T 0.21 ABS# (0-10) 11/08/21 08:11 NT-Pro-B Natriuret Pep 2595 pg/mL (0-450) H 11/08/21 05:48 Total Protein 6.5 g/dL (6.6-8.7) L 11/08/21 05:48 Albumin 3.8 g/dL (3.5-5.2) 11/08/21 05:48 Globulin 2.7 g/dL (1.3-4.6) 11/08/21 05:48 Discharge Plan Discharge Patient Disposition: Home Clinical Impression: Congestive heart failure, Atrial fibrillation Condition: Stable Prescriptions: Changed furosemide 40 mg tablet 40 mg PO BID Qty: 0 0RF Rx Instructions: Take 1.5 in the morning and take 1 tab in the afternoon. No Action acetaminophen [Tylenol Extra Strength] 500 mg tablet 500 mg PO Q6H PRN0RF losartan 100 mg tablet 100 mg PO DAILY 0RF budesonide-formoterol 160-4.5 mcg/actuation HFA aerosol inhaler 2 puff inhalation BID 0RF albuterol sulfate 90 mcg/actuation HFA aerosol inhaler 2 puff inhalation BID 0RF Pacerone 200 mg tablet 200 mg PO DAILY Qty: 90 3RF isosorbide mononitrate 30 mg tablet extended release 24 hr 30 mg PO DAILY 0RF potassium chloride 20 mEq tablet,ER particles/crystals 20 meq PO BID 0RF nitroglycerin 0.4 mg tablet, sublingual 0.4 mg sublingual Q5MIN PRN (Reason: Chest Pain) 0RF rosuvastatin 40 mg tablet 40 mg PO DAILY 0RF Eliquis 5 mg Tablet 5 mg PO BID@0900,2100 Qty: 90 3RF clopidogrel 75 mg Tablet 75 mg PO DAILY Qty: 90 3RF Centrum Silver 400-250 mcg Tablet,Chewable 1 tab PO DAILY 0RF Discharge Orders: Discharge ED (Routine); Ordered 11/08/21 Ordered By: Jayant Nowak Referrals: Gene Peralta [Primary Care Provider] - Discharge Diet: Usual diet Discharge Activity: Increase activity as tolerated Patient Instructions: Opioid Safety Activity Restrictions/Additional Instructions: Activities as tolerated. Increase your Lasix to 40 mg twice daily. During that time and take your potassium 3 times daily. Recheck with your primary care doctor within 1 week. Sign Out Sign Out Data: Patient Sign Out occurred on 11/08/21 at 06:43. Patient's care was discussed, and care was transferred from to Jayant Nowak DO. Coding Level of Care Code ED [place] Counselor for Lawson Zelaya
[2021-11-08 05:55] LABS: Basophils # 0.1 10^3/uL (0.0-0.1); Basophils % 0.9 %; Eosinophils # 0.2 10^3/uL (0.0-0.8); Eosinophils % 3.1 %; Hematocrit 31.7 % (42.0-52.0); Hemoglobin 9.9 g/dL (11.7-16.6); Lymphocytes # 1.6 10^3/uL (0.8-4.8); Mean Corpuscular HGB Conc 31.2 g/dL (30.0-36.0); Mean Corpuscular Hemoglobin 30.8 pg (28.0-34.0); Mean Corpuscular Volume 98.8 fl (80-94); Mean Platelet Volume 9.8 fL (7.4-10.4); Monocytes # 0.7 10^3/uL (0.2-0.9); Monocytes % 11.4 %; Neutrophils # 3.26 10^3/uL (1.8-7.7); Neutrophils % 56.4 %; Nucleated Red Blood Cells % 0 %; Platelet Count 191 10^3/cmm (130-400); Red Blood Count 3.21 10^6/uL (4.1-5.3); Red Cell Distribution Width 14.8 % (12.1-15.1); White Blood Count 5.8 10^3/uL (4.0-10.0)
[2021-11-08 06:19] LABS: Troponin(5th) Baseline 26 ng/L (0-15)
[2021-11-08] MEDS: FUROsemide 40 mg Tablet 80 MG PO (06:23)
[2021-11-08 06:26] LABS: Alanine Aminotransferase 21 U/L (0-41); Albumin Level 3.8 g/dL (3.5-5.2); Alkaline Phosphatase 68 IU/L (40-130); Anion Gap 14.9 (5-19); Aspartate Amino Transferase 21 U/L (0-40); Blood Urea Nitrogen 19 mg/dL (8-23); Calcium 9.4 mg/dL (8.5-10.5); Carbon Dioxide 23 mmol/L (22-29); Chloride 106 mmol/L (98-107); Globulin 2.7 g/dL (1.3-4.6); Glucose 99 mg/dL (65-115); Magnesium 2.5 mg/dL (1.7-2.3); NT Pro B Type Natriuretic Pept 2595 pg/mL (0-450); Osmolality Calculated 292 mOsm/kg (285-295); Potassium 3.9 mmol/L (3.5-5.1); Sodium 140 mmol/L (136-145); Total Bilirubin 0.5 mg/dL (0.15-1.2); Total Protein 6.5 g/dL (6.6-8.7)
--- NOTE | 2021-11-08 07:02 | PC.NURSE ---
Report received from CHAO Hernadez. Pt sitting at side of bed for comfort. Resp even and unlabored. Lung sounds diminished with fine crackles at bases.
--- NOTE | 2021-11-08 07:15 | ECG_ITS ---
[facility] Test Date: 2021-11-08 Pat Name: Jesus Saucedo Department: Room: Gender: Male [employer]: : 1935 Requested By: Jeff Easton Order Number: [id number] Anders MD: Mike Gonzalez M.D. Measurements Intervals [place] Rate: 49 P: [place]: QRS: -56 QRSD: 190 T: 142 QT: 549 QTc: 500 Interpretive Statements ELECTRONIC VENTRICULAR PACEMAKER. 100% V paced with ABNORMAL RHYTHM ECG Compared to ECG 11/08/2021 06:29:28 Prolonged QT interval no longer present Electronically Signed On 11-08-2021 22:02:14 CDT by Mike Gonzalez M.D. [email or web address]
[2021-11-08 08:45] LABS: Troponin 5 2HR 26.21 ng/L (0-15)
[2021-11-08 09:14] LABS: Troponin 5 2HR Delta 0.21 ABS# (0-10)
[2021-11-08 09:18] VITALS: BP 131/93; PULSE 50; RESP 22; O2SAT 91
[2021-11-08 10:24] VITALS: BP 131/87; PULSE 50; RESP 18; O2SAT 94
== END 2021-11-08 10:25 | disposition home or self-care (01) ==
PROVIDERS: Emergency Medicine; Emergency Provider Family Medicine; PCP Family Medicine
DX: I50.9 Heart failure, unspecified (principal); I48.91 Unspecified atrial fibrillation; I25.2 Old myocardial infarction; I25.10 Atherosclerotic heart disease of native coronary artery without angina pectoris; I10 Essential (primary) hypertension; E78.5 Hyperlipidemia, unspecified; F17.290 Nicotine dependence, other tobacco product, uncomplicated; Z79.01 Long term (current) use of anticoagulants
CPT/HCPCS: 36415; 71045; 80053; 83735; 83880; 84484; 85025; 93005; 99285

== ENCOUNTER → 2021-12-19 10:41 | Outpatient (BNVA) | payer MEDICARE, OTHER, SELFPAY | PROVIDERS: PCP Family Medicine; Visit Provider Internal Medicine | DX: I25.10 Atherosclerotic heart disease of native coronary artery without angina pectoris (principal); E78.5 Hyperlipidemia, unspecified; Z95.810 Presence of automatic (implantable) cardiac defibrillator; I48.91 Unspecified atrial fibrillation; I10 Essential (primary) hypertension; I42.9 Cardiomyopathy, unspecified; I25.2 Old myocardial infarction; Z79.01 Long term (current) use of anticoagulants | CPT/HCPCS: 99214 ==

== ENCOUNTER 2022-02-21 20:27 | Emergency (ER) | payer MEDICARE, OTHER, SELFPAY ==
[2022-02-21 20:56] VITALS: BP 87/53; PULSE 110; RESP 16; TEMP 36.3; O2SAT 99; BMI 28.3
--- NOTE | 2022-02-21 21:16 | W.ED.FALL ---
Documented by User: Wili Bazan MD 03/09/22 22:04 HPI - Fall General: Chief Complaint: Fall Stated Complaint: Fall hand and Back\Wrist Time Seen by Provider: 02/21/22 21:16 History of Present Illness: 86-year-old gentleman on Eliquis who presents to the emergency department due to fall. He reports being at his baseline health and he tried to grab his dog that was running around. He tried to walk backwards and falling backwards and landing on his back. He denies loss of consciousness. Currently endorses moderate intensity back and rib pain. He has been dealing with low blood pressure issues but denies preceding lightheadedness or dizziness he simply tripped. End HPI. Fall from: standing Loss of consciousness: None Prolonged down time: no Symptoms prior to fall: none Context: tripped/slipped Review of Systems General: Reports: 10 or more systems reviewed and unremarkable except in HPI and below PFSH ED PFSH: Medical History Acute IN Acute non-ST elevation myocardial infarction (NSTEMI) Anemia Atrial fibrillation Rate control on anticoagulation Chronic kidney disease Coronary artery disease Coronary artery disease Hyperlipidemia Hypertension Well-controlled Sustained VT (ventricular tachycardia) Continue current regimen including beta-ashley, amiodarone. Appear to be stable not in VT anymore. Can be discharged home. Ventricular tachycardia Surgical History Stented coronary artery Family History Other CAD (coronary artery disease) Social History Smoking and tobacco status: never smoked Alcohol intake: never Physical Exam Const: COMMON NORMALS: alert GENERAL APPEARANCE: cooperative and well developed HENMT: COMMON NORMALS: normocephalic and atraumatic HEAD & SCALP: normocephalic and atraumatic THROAT: posterior oropharynx normal OTHER: No garcia signs or raccoon eyes. No hemotympanum. No otorrhea or rhinorrhea. Jaw alignment normal. Dentition baseline. No obvious bony step-offs. No septal hematoma. No evidence of ocular entrapment. Eye: COMMON NORMALS: conjunctivae normal CONJUNCTIVA: Yes conjunctivae normal SCLERA: sclerae normal Neck/C-Spine: COMMON NORMALS: supple GENERAL: Yes trachea midline Chest: OTHER: Lateral chest wall pain Resp: COMMON NORMALS: normal respiratory effort and clear to auscultation bilaterally EFFORT & INSPECTION: Yes able to speak in complete sentences AUSCULTATION: clear to auscultation bilaterally Cardio: COMMON NORMALS: regular rate and regular rhythm RATE: regular rate RHYTHM: regular rhythm GI: COMMON NORMALS: Soft to palpation PALPATION: Yes Soft to palpation and No Tenderness to palpation present (GI) Back/Pelvis: OTHER: He and L-spine tenderness palpation. Extremity: GENERAL: Yes normal exam except as noted and No edema OTHER: Hand and wrist pain to palpation, no snuffbox tenderness. CMS intact. Neuro: COMMON NORMALS: moves all extremities SENSORIUM/ORIENTATION: Yes alert and No Orientation impaired Psych: COMMON NORMALS: mental status grossly normal and Normal thought process present THOUGHT PROCESS: Normal thought process present Course ED course: - Patient was seen and evaluated by me at bedside - Patient placed on cardiac monitors, IV access obtained - Initial evaluation notable for exam as above. Head to toe exam performed. - Labs and xrays personally interpreted by me -Analgesia ordered and Tdap for skin tears. -No indication currently for laboratory studies -Handed off pending completion of imaging studies. Vital Signs: Vital signs: Vital Signs Temperature 97.4 F L 02/21/22 20:56 Pulse Rate 65 02/22/22 01:30 Respiratory Rate 18 02/22/22 01:30 Blood Pressure 115/71 02/22/22 01:30 Pulse Oximetry 93 02/22/22 01:30 Oxygen Delivery Ri thod 02/22/22 01:30 MDM - Fall Medical Decision Making 86-year-old gentleman presenting with mechanical fall. Head to toe exam performed and appropriate imaging ordered. Handed off pending completion of imaging reads. 86 year old gentleman checked out to me by doctor Bazan at shift change. this gentleman was pending CT results. CT of the head and cervical spine showed no acute abnormality. CT of the chest abdomen and pelvis revealed a chalk stick fracture through T9 and T10. the patient is completely neurologically intact distally. There does not appear to be significant herniation or cord compression or involvement By imaging. He will be placed in a TLSO brace allowed to follow up with orthopedic spine surgery. His wrist is also placed in a thumb spica splint given his snuff box tenderness on exam despite negative X-ray. He will follow up for this as well. Medical Records I reviewed the patient's medical records. Lab Data I reviewed the patient's lab results. Radiology Impressions Cervical Spine CT 02/21/22 21:27 IMPRESSION: No fracture is identified. Chest/Abdomen/Pelvis CT 02/21/22 21:27 IMPRESSION: 1. Possible ankylosing spondylitis with bridging lateral vertebral body ossifications and ossification of the supraspinous ligament. 2. Chalk stick fracture through the T9 and T10 vertebral bodies going through the anterior and lateral T9-T10 syndesmophytes with some widening or distraction of the anterior vertebral disc space and associated fracture/step-off through the posterior T9-T10 spinous process syndesmophyte. Sagittal series 9, image 35, coronal series 8, images 41-45. Essentially this is a hyperextension fracture/injury in a patient with ankylosing spondylitis. Chalk stick fractures occur through fused spines, classically seen with ankylosing spondylitis or DISH syndrome. IMPRESSION: No acute findings. COMMENTS: Consistent with the [employer]'s Incidental Findings Committee white paper (J Am Jeremy Radiol 2018): Any incidental renal lesion less than 1 cm or classified as too small to characterize, or any incidental cystic renal lesion characterized as simple-appearing, is likely benign. No follow-up imaging is recommended for these lesions per consensus recommendations based on imaging criteria. Hand X-Ray 02/21/22 21:27 IMPRESSION: 1. No fracture is identified 2. Small metallic foreign body of uncertain significance Head CT 02/21/22 21:27 IMPRESSION: No acute intracranial finding Wrist X-Ray 02/21/22 21:27 IMPRESSION: No acute findings. Discharge Plan Discharge Patient Disposition: Home Clinical Impression: Fall, Multiple contusions, Closed fracture of thoracic vertebral body Condition: Stable Prescriptions: No Action acetaminophen [Tylenol Extra Strength] 500 mg tablet 500 mg PO Q6H PRN (Reason: Pain) (DME) Thumb Spica See Rx Instructions .Route .MEDSUPPLY Qty: 1 0RF Rx Instructions: As directed. (DME) Bone Growth Stimulator E0748 See Rx Instructions .Route .MEDSUPPLY Qty: 1 0RF Rx Instructions: As directed isosorbide mononitrate 30 mg tablet extended release 24 hr 30 mg PO QAM potassium chloride 20 mEq tablet,ER particles/crystals 20 meq PO BID nitroglycerin 0.4 mg tablet, sublingual 0.4 mg sublingual Q5MIN PRN (Reason: Chest Pain) rosuvastatin 40 mg tablet 40 mg PO BEDTIME Centrum Silver 400-250 mcg Tablet,Chewable 1 tab PO DAILY levothyroxine 75 mcg tablet 75 mcg PO QAM bumetanide 2 mg tablet 2 mg PO BID trazodone 50 mg tablet 50 mg PO BEDTIME PRN (Reason: Sleep) albuterol sulfate 90 mcg/actuation HFA aerosol inhaler 2 puff INHALATION Q6H PRN (Reason: Shortness Of Breath) clopidogrel 75 mg tablet 75 mg PO QAM amiodarone 100 mg tablet 100 mg PO QAM Eliquis 5 mg tablet 5 mg PO BID@07,19 oxycodone 10 mg tablet 10 mg PO Q4H PRN (Reason: pain) 7 Days Qty: 40 0RF tamsulosin 0.4 mg Capsule 0.4 mg PO DAILY Qty: 30 0RF oxycodone 10 mg tablet 10 mg PO Q4H PRN (Reason: pain) 7 Days Qty: 40 0RF metoprolol tartrate 25 mg tablet 25 mg PO BID Qty: 60 0RF losartan 25 mg tablet 25 mg PO DAILY Qty: 90 0RF diphenhydramine HCl 12.5 mg/5 mL Elixir 12.5 mg PO Q4H PRN (Reason: Itching) 7 Days Qty: 500 0RF Discharge Orders: Discharge ED (Routine); Ordered 02/22/22 Ordered By: eJff Eid Referrals: Juan Zhang DO [Physician] - 4-7 days Gene Peralta [Primary Care Provider] - 4-7 days Discharge Diet: Usual diet Discharge Activity: Increase activity as tolerated Patient Instructions: Fall Prevention for Older Adults (ED), Contusion in Adults (ED) Activity Restrictions/Additional Instructions: Thank you for visiting the emergency department. You were seen and evaluated for fall. Stay in your splint for the wrist, until seen by either your doctor or orthopedics. This will need to be re-imaged in a week or so. When not in bed, you should wear your TLSO brace for your back fracture. You will get a call at the beginning of the week for a follow-up appointment with orthopedic spine. Their numbers listed on these instructions should you not get that call. Return to the emergency department for any development of neurological symptoms such as weakness, significant numbness or tingling, loss of function of your bowel or bladder control that is new, or any other concerns. The treatment for this is supportive. Please follow-up with your primary care provider. Please return to the emergency department for uncontrolled symptoms or anything else that you are concerned about a feel needs emergency department evaluation. Coding Level of Care Code ED Termite Technician for Chg Fwd Documented by User: Jeff Eid DO 02/22/22 16:41 HPI - Fall General: Chief Complaint: Fall Stated Complaint: Fall hand and Back\Wrist Time Seen by Provider: 02/21/22 21:16 [facility] ED PFSH: Medical History Acute IN Acute non-ST elevation myocardial infarction (NSTEMI) Anemia Atrial fibrillation Rate control on anticoagulation Chronic kidney disease Coronary artery disease Coronary artery disease Hyperlipidemia Hypertension Well-controlled Sustained VT (ventricular tachycardia) Continue current regimen including beta-ashley, amiodarone. Appear to be stable not in VT anymore. Can be discharged home. Ventricular tachycardia Surgical History Stented coronary artery Family History Other CAD (coronary artery disease) Social History Smoking and tobacco status: never smoked Alcohol intake: never Course Vital Signs: Vital signs: Vital Signs Temperature 97.4 F L 02/21/22 20:56 Pulse Rate 65 02/22/22 01:30 Respiratory Rate 18 02/22/22 01:30 Blood Pressure 115/71 02/22/22 01:30 Pulse Oximetry 93 02/22/22 01:30 Oxygen Delivery Me thod 02/22/22 01:30 MDM - Fall Medical Decision Making 86 year old gentleman checked out to me by doctor Beni at shift change. this gentleman was pending CT results. CT of the head and cervical spine showed no acute abnormality. CT of the chest abdomen and pelvis revealed a chalk stick fracture through T9 and T10. the patient is completely neurologically intact distally. There does not appear to be significant herniation or cord compression or involvement By imaging. He will be placed in a TLSO brace allowed to follow up with orthopedic spine surgery. His wrist is also placed in a thumb spica splint given his snuff box tenderness on exam despite negative X-ray. He will follow up for this as well. Lab Data Radiology Impressions Cervical Spine CT 02/21/22 21:27 IMPRESSION: No fracture is identified. Chest/Abdomen/Pelvis CT 02/21/22 21:27 IMPRESSION: 1. Possible ankylosing spondylitis with bridging lateral vertebral body ossifications and ossification of the supraspinous ligament. 2. Chalk stick fracture through the T9 and T10 vertebral bodies going through the anterior and lateral T9-T10 syndesmophytes with some widening or distraction of the anterior vertebral disc space and associated fracture/step-off through the posterior T9-T10 spinous process syndesmophyte. Sagittal series 9, image 35, coronal series 8, images 41-45. Essentially this is a hyperextension fracture/injury in a patient with ankylosing spondylitis. Chalk stick fractures occur through fused spines, classically seen with ankylosing spondylitis or DISH syndrome. IMPRESSION: No acute findings. COMMENTS: Consistent with the [employer]'s Incidental Findings Committee white paper (J Am Jeremy Radiol 2018): Any incidental renal lesion less than 1 cm or classified as too small to characterize, or any incidental cystic renal lesion characterized as simple-appearing, is likely benign. No follow-up imaging is recommended for these lesions per consensus recommendations based on imaging criteria. Hand X-Ray 02/21/22 21:27 IMPRESSION: 1. No fracture is identified 2. Small metallic foreign body of uncertain significance Head CT 02/21/22 21:27 IMPRESSION: No acute intracranial finding Wrist X-Ray 02/21/22 21:27 IMPRESSION: No acute findings. Discharge Plan Discharge Patient Disposition: Home Clinical Impression: Fall, Multiple contusions, Closed fracture of thoracic vertebral body Condition: Stable Prescriptions: No Action acetaminophen [Tylenol Extra Strength] 500 mg tablet 500 mg PO Q6H PRN (Reason: Pain) (DME) Thumb Spica See Rx Instructions .Route .MEDSUPPLY Qty: 1 0RF Rx Instructions: As directed. (DME) Bone Growth Stimulator E0748 See Rx Instructions .Route .MEDSUPPLY Qty: 1 0RF Rx Instructions: As directed isosorbide mononitrate 30 mg tablet extended release 24 hr 30 mg PO QAM potassium chloride 20 mEq tablet,ER particles/crystals 20 meq PO BID nitroglycerin 0.4 mg tablet, sublingual 0.4 mg sublingual Q5MIN PRN (Reason: Chest Pain) rosuvastatin 40 mg tablet 40 mg PO BEDTIME Centrum Silver 400-250 mcg Tablet,Chewable 1 tab PO DAILY levothyroxine 75 mcg tablet 75 mcg PO QAM bumetanide 2 mg tablet 2 mg PO BID trazodone 50 mg tablet 50 mg PO BEDTIME PRN (Reason: Sleep) albuterol sulfate 90 mcg/actuation HFA aerosol inhaler 2 puff INHALATION Q6H PRN (Reason: Shortness Of Breath) clopidogrel 75 mg tablet 75 mg PO QAM amiodarone 100 mg tablet 100 mg PO QAM Eliquis 5 mg tablet 5 mg PO BID@07,19 oxycodone 10 mg tablet 10 mg PO Q4H PRN (Reason: pain) 7 Days Qty: 40 0RF tamsulosin 0.4 mg Capsule 0.4 mg PO DAILY Qty: 30 0RF oxycodone 10 mg tablet 10 mg PO Q4H PRN (Reason: pain) 7 Days Qty: 40 0RF metoprolol tartrate 25 mg tablet 25 mg PO BID Qty: 60 0RF losartan 25 mg tablet 25 mg PO DAILY Qty: 90 0RF diphenhydramine HCl 12.5 mg/5 mL Elixir 12.5 mg PO Q4H PRN (Reason: Itching) 7 Days Qty: 500 0RF Discharge Orders: Discharge ED (Routine); Ordered 02/22/22 Ordered By: Jeff Eid Referrals: Leatha,Juan H, DO [Physician] - 4-7 days Gene Peralta [Primary Care Provider] - 4-7 days Discharge Diet: Usual diet Discharge Activity: Increase activity as tolerated Patient Instructions: Fall Prevention for Older Adults (ED), Contusion in Adults (ED) Activity Restrictions/Additional Instructions: Thank you for visiting the emergency department. You were seen and evaluated for fall. Stay in your splint for the wrist, until seen by either your doctor or orthopedics. This will need to be re-imaged in a week or so. When not in bed, you should wear your TLSO brace for your back fracture. You will get a call at the beginning of the week for a follow-up appointment with orthopedic spine. Their numbers listed on these instructions should you not get that call. Return to the emergency department for any development of neurological symptoms such as weakness, significant numbness or tingling, loss of function of your bowel or bladder control that is new, or any other concerns. The treatment for this is supportive. Please follow-up with your primary care provider. Please return to the emergency department for uncontrolled symptoms or anything else that you are concerned about a feel needs emergency department evaluation. Coding Level of Care Code ED Termite Technician for Lawson Zelaya
--- NOTE | 2022-02-21 21:27 | XRR_ITS ---
PROCEDURE INFORMATION: Exam: XR Left Hand Exam date and time: 02/21/2022 9:34 PM Age: 86 years old Clinical indication: Injury or trauma; Fall; Blunt trauma (contusions or hematomas); Hand; Left; Additional info: Fall, pain, bruising 1st digit TECHNIQUE: Imaging protocol: Radiologic exam of the Left hand. Views: 3 or more views. COMPARISON: No relevant prior studies available. FINDINGS: Bones/joints: Normal. Soft tissues: There is a small metallic opaque foreign body in the index finger adjacent to the 2nd proximal PIP joint. XR/XR hand LT min 3V* [id number] IMPRESSION: 1. No fracture is identified 2. Small metallic foreign body of uncertain significance
--- NOTE | 2022-02-21 21:27 | XRR_ITS ---
PROCEDURE INFORMATION: Exam: XR Left Wrist Exam date and time: 02/21/2022 9:34 PM Age: 86 years old Clinical indication: Injury or trauma; Fall; Blunt trauma (contusions or hematomas); Wrist; Left; Additional info: Fall, pain TECHNIQUE: Imaging protocol: Radiologic exam of the Left wrist. Views: 3 or more views. COMPARISON: No relevant prior studies available. FINDINGS: Bones/joints: Normal. Soft tissues: Normal. XR/XR wrist LT min 3V* [id number] IMPRESSION: No acute findings.
--- NOTE | 2022-02-21 21:27 | CTR_ITS ---
PROCEDURE INFORMATION: Exam: CT Chest With Contrast; Diagnostic Exam date and time: 02/21/2022 10:37 PM Age: 86 years old Clinical indication: Injury or trauma; Fall; Lower; Blunt trauma (contusions or hematomas); Injury date: 02-21-22; Injury details: Fell and injured left hand/wrist and mid to low back pain; Prior surgery; Surgery date: 6+ months; Surgery type: Appy, defibulator; Additional info: Fall on thinners, back and rib pain TECHNIQUE: Imaging protocol: Diagnostic computed tomography of the chest with contrast. Radiation optimization: All CT scans at this facility use at least one of these dose optimization techniques: automated exposure control; mA and/or kV adjustment per patient size (includes targeted exams where dose is matched to clinical indication); or iterative reconstruction. Contrast material: OMPNIPAQUE 350; Contrast volume: 95 ml; Contrast route: INTRAVENOUS (IV); COMPARISON: CT angio chest PE protcl [id number] 04/27/2021 8:43 AM RADIATION DOSE METRICS: Total DLP (mGy-cm): 1346.72 FINDINGS: Tubes, catheters and devices: Left -sided pacemaker. Lungs: Unremarkable. No consolidation. No masses. Pleural spaces: Unremarkable. No pneumothorax. No pleural effusion. Heart: Stable severe calcified coronary artery disease. Lymph nodes: Unremarkable. No enlarged lymph nodes. Vasculature: Unremarkable. No aortic aneurysm. Bones/joints: Possible ankylosing spondylitis with bridging lateral vertebral body ossifications and ossification of the supraspinous ligament. Chalk stick fracture through the T9 and T10 vertebral bodies going through the anterior and lateral T9-T10 syndesmophytes with some widening or distraction of the anterior vertebral disc space and associated fracture/step-off through the posterior T9-T10 spinous process syndesmophyte. Sagittal series 9, image 35, coronal series 8, images 41-45. Essentially this is a hyperextension fracture/injury in a patient with ankylosing spondylitis. Chalk stick fractures occur through fused spines, classically seen with ankylosing spondylitis or DISH syndrome. Soft tissues: Unremarkable. PROCEDURE INFORMATION: Exam: CT Abdomen And Pelvis With Contrast Exam date and time: 02/21/2022 10:37 PM Age: 86 years old Clinical indication: Injury or trauma; Fall; Lower; Blunt trauma (contusions or hematomas); Injury date: 02-21-22; Injury details: Fell and injured left hand/wrist and mid to low back pain; Prior surgery; Surgery date: 6+ months; Surgery type: Appy, defibulator; Additional info: Fall on thinners, back and rib pain TECHNIQUE: Imaging protocol: Computed tomography of the abdomen and pelvis with contrast. Radiation optimization: All CT scans at this facility use at least one of these dose optimization techniques: automated exposure control; mA and/or kV adjustment per patient size (includes targeted exams where dose is matched to clinical indication); or iterative reconstruction. Contrast material: OMPNIPAQUE 350; Contrast volume: 95 ml; Contrast route: INTRAVENOUS (IV); COMPARISON: CT angio chest PE protcl [id number] 04/27/2021 8:43 AM RADIATION DOSE METRICS: Total DLP (mGy-cm): 1346.72 FINDINGS: Liver: Normal. No mass. Gallbladder and bile ducts: Normal. No calcified stones. No ductal dilation. Pancreas: Normal. No ductal dilation. Spleen: Normal. No splenomegaly. Adrenal glands: Normal. No mass. Kidneys and ureters: Multiple left renal simple cysts with the largest measuring > 1.0 cm. Stomach and bowel: Mild colonic diverticulosis. Appendix: No evidence of appendicitis. Intraperitoneal space: Unremarkable. No free air. No significant fluid collection. Vasculature: Calcification of the abdominal aorta and/or iliac arteries consistent with atherosclerotic vessel disease. One or more calcified pelvic phleboliths. Lymph nodes: Unremarkable. No enlarged lymph nodes. Urinary bladder: Unremarkable as visualized. Reproductive: Unremarkable as visualized. Bones/joints: Unremarkable. No acute fracture. Soft tissues: Unremarkable. Other findings: Severe calcified peripheral vascular disease. CT/CT chest abd pel w con* IMPRESSION: 1. Possible ankylosing spondylitis with bridging lateral vertebral body ossifications and ossification of the supraspinous ligament. 2. Chalk stick fracture through the T9 and T10 vertebral bodies going through the anterior and lateral T9-T10 syndesmophytes with some widening or distraction of the anterior vertebral disc space and associated fracture/step-off through the posterior T9-T10 spinous process syndesmophyte. Sagittal series 9, image 35, coronal series 8, images 41-45. Essentially this is a hyperextension fracture/injury in a patient with ankylosing spondylitis. Chalk stick fractures occur through fused spines, classically seen with ankylosing spondylitis or DISH syndrome. IMPRESSION: No acute findings. COMMENTS: Consistent with the [employer] [place]'s Incidental Findings Committee white paper (J Am Jeremy Radiol 2018): Any incidental renal lesion less than 1 cm or classified as too small to characterize, or any incidental cystic renal lesion characterized as simple-appearing, is likely benign. No follow-up imaging is recommended for these lesions per consensus recommendations based on imaging criteria.
--- NOTE | 2022-02-21 21:27 | CTR_ITS ---
PROCEDURE INFORMATION: Exam: CT Cervical Spine Without Contrast Exam date and time: 02/21/2022 10:32 PM Age: 86 years old Clinical indication: Injury or trauma; Fall; Blunt trauma; Injury date: 02-21-22; Injury details: Fell and injured left hand/wrist and mid to low back pain; Additional info: Fall, head strike TECHNIQUE: Imaging protocol: Computed tomography of the cervical spine without contrast. Radiation optimization: All CT scans at this facility use at least one of these dose optimization techniques: automated exposure control; mA and/or kV adjustment per patient size (includes targeted exams where dose is matched to clinical indication); or iterative reconstruction. COMPARISON: CT head wo con* [id number] 02/21/2022 10:28 PM RADIATION DOSE METRICS: Total DLP (mGy-cm): 161.87 FINDINGS: Bones/joints: No fracture is identified. Discs/Spinal canal/Neural foramina: There is decreased height of the C4-C5 disc space. There is degenerative change in the anterior atlantoaxial joint. Lungs: Lung apices are normal. Soft tissues: Unremarkable. CT/CT cervical spin wo con* [id number] IMPRESSION: No fracture is identified.
--- NOTE | 2022-02-21 21:27 | CTR_ITS ---
PROCEDURE INFORMATION: Exam: CT Head Without Contrast Exam date and time: 02/21/2022 10:28 PM Age: 86 years old Clinical indication: Injury or trauma; Fall; Blunt trauma (contusions or hematomas); Without loss of consciousness; Injury date: 02-21-22; Injury details: Fell and injured left hand/wrist and mid to low back pain; Prior surgery; Surgery date: 6+ months; Surgery type: Appy, defibulator; Additional info: Fall head strike +thinners TECHNIQUE: Imaging protocol: Computed tomography of the head without contrast. Radiation optimization: All CT scans at this facility use at least one of these dose optimization techniques: automated exposure control; mA and/or kV adjustment per patient size (includes targeted exams where dose is matched to clinical indication); or iterative reconstruction. COMPARISON: No relevant prior studies available. RADIATION DOSE METRICS: Total DLP (mGy-cm): 1039.98 FINDINGS: Brain: There is moderate cortical atrophy. Low-density changes in the white matter are consistent with nonspecific small vessel chronic ischemic change. There is no intracranial mass, hemorrhage or edema. Cerebral ventricles: No ventriculomegaly. Paranasal sinuses: Visualized sinuses are unremarkable. No fluid levels. Mastoid air cells: Visualized mastoid air cells are well aerated. Bones/joints: Unremarkable. No acute fracture. Soft tissues: Unremarkable. CT/CT head wo con* [id number] IMPRESSION: No acute intracranial finding
[2022-02-21] MEDS: morphine 4 mg/mL SDV 1 mL IVP (21:44)
[2022-02-21] MEDS: tetanus-dipt-pertussis 0.5 mL SDV IM (21:44)
[2022-02-21 21:55] VITALS: BP 83/42; PULSE 50; RESP 19; O2SAT 94
[2022-02-22 00:14] VITALS: PULSE 50; RESP 18; O2SAT 94
[2022-02-22 01:30] VITALS: BP 115/71; PULSE 65; RESP 18; O2SAT 93
== END 2022-02-22 01:42 | disposition home or self-care (01) ==
PROVIDERS: Emergency Provider Emergency Medicine; PCP Family Medicine
DX: S22.078A Other fracture of T9-T10 vertebra, initial encounter for closed fracture (principal); T14.8XXA Other injury of unspecified body region, initial encounter; Z79.01 Long term (current) use of anticoagulants; W19.XXXA Unspecified fall, initial encounter; I25.2 Old myocardial infarction; I25.10 Atherosclerotic heart disease of native coronary artery without angina pectoris; E78.5 Hyperlipidemia, unspecified; I10 Essential (primary) hypertension; Z23 Encounter for immunization
CPT/HCPCS: 70450; 71260; 72125; 73110; 73130; 74177; 90471; 90715; 96374; 99285; J2270; Q9967

== ENCOUNTER → 2022-02-26 08:26 | Outpatient (BNVA) | payer MEDICARE, OTHER, SELFPAY | PROVIDERS: PCP Family Medicine; Visit Provider Orthopaedic Surgery | DX: S22.079A Unspecified fracture of T9-T10 vertebra, initial encounter for closed fracture (principal); S69.92XA Unspecified injury of left wrist, hand and finger(s), initial encounter; W19.XXXA Unspecified fall, initial encounter; M45.4 Ankylosing spondylitis of thoracic region | CPT/HCPCS: 72070; 72100; 73130; 99204 ==

== ENCOUNTER 2022-02-26 10:39 | Outpatient (CLI) | payer MEDICARE, OTHER, SELFPAY | END 2022-02-26 10:40 | disposition home or self-care (01) | LOC: SPT 10:40 | PROVIDERS: PCP Family Medicine; Visit Provider Orthopaedic Surgery | DX: Z46.89 Encounter for fitting and adjustment of other specified devices (principal); M25.532 Pain in left wrist | CPT/HCPCS: 97760; L3809 ==

== ENCOUNTER 2022-03-02 12:37 | Inpatient (IN) | payer MEDICARE, OTHER, SELFPAY ==
[2022-02-27 10:01] VITALS: BMI 28.3
--- NOTE | 2022-02-27 10:31 | ECG_ITS ---
[facility] Test Date: 2022-02-27 Pat Name: Jesus Saucedo Department: Room: Gender: Male Director Veterinary: : 1935 Requested By: Mak Garcia Order Number: [id number] Anders MD: Christopher Aguilera M.D. Measurements Intervals [place] Rate: 49 P: [place]: QRS: -56 QRSD: 190 T: 123 QT: 578 QTc: 525 Interpretive Statements ELECTRONIC VENTRICULAR PACEMAKER PROLONGED QT INTERVAL CRITICAL TEST RESULT Compared to ECG 11/08/2021 07:16:10 Prolonged QT interval now present Electronically Signed On 02-28-2022 9:19:32 CDT by Christopher Aguilera M.D. [id number]
--- NOTE | 2022-02-27 13:05 | ANES.PREANE2 ---
Pre-Anesthetic Assessment Height/Weight: Height 1.78 m Weight 89.358 kg Preop Diagnosis: Unstable thoracic spine fracture Operation Date: 03/02/22 07:00 Proposed Procedures p T7-T12 POSTERIOR INSTRUMENTAION PERCUTANEOUSLY [id number]/04258/M45.4(Not Applicable) - Juan Zhang, Familial anesthetic complications: none Was Beta Sudhir taken within 24 hours: N/A Was Clonidine taken within 24 hours: N/A Social No alcohol and No tobacco Exam alert, oriented x 3 and clear to auscultation bilaterally Bradycardia with regular rhythm Airway Submandibular: within normal limits Cervical ROM: within normal limits Mallampati: Class II Dentition: full Pulmonary Denies COPD, KYRA CV/HEM Acquired Immunodeficiency Syndrome, Anemia, Arrythmia (Prolonged QT, Hx of sustained vtach requiring CPR, defib and subsequent pacemaker/ICD ), Coronary Artery Disease (RCA with ALEXANDRA x2 and proximal LAD with ALEXANDRA x1), Hypertension and Myocardial Infarction Hx of cardiomyopathy Pacemaker ICD - VVI lower rate 50 ([employer] VISIA AF [id number] - SN [id number]) EKG 02/27/22 ? Intervals? [place]? Rate: ? 49 ? P:? [place]:? QRS:? -56 QRSD: ? 190? T:? 123 QT: ? 578? QTc:? 525? Interpretive Statements ELECTRONIC VENTRICULAR PACEMAKER PROLONGED QT INTERVAL CRITICAL TEST RESULT Compared to ECG 11/08/2021 07:16:10 Prolonged QT interval now present [id number] ? EKG 11/08/21 Intervals? [place]? Rate: ? 49 ? P:? [place]:? QRS:? -56 QRSD: ? 190? T:? 142 QT: ? 549? QTc:? 500? Interpretive Statements ELECTRONIC VENTRICULAR PACEMAKER.? 100% V paced with ABNORMAL RHYTHM ECG Compared to ECG 11/08/2021 06:29:28 Prolonged QT interval no longer present Electronically Signed On 11-08-2021 22:02:14 CDT by Mike Gonzalez M.D. [id number] TTE 04/2021 ?CONCLUSIONS ?Technically limited quality echocardiogram because of limited ?ultrasonic windows ?LV systolic function is moderately reduced with EF of 35-40%. ?Moderate global hypokinesis ?Biatrial enlargement ?Mild mitral regurgitation ?Compared to prior echocardiogram from 02/11/2021,LV systolic ?function is reduced further to 35-40%. Hepatic None reported GI None reported Metabolic None reported [facility] Akylosing spondylitis Acute thoracic fracture Neuropsych Head CT 02/21/22 CT/CT head wo con* [id number] IMPRESSION: No acute intracranial finding ? Anesthetic Plan ASA status: 4 Anesthesia: Anesthesia Evaluation and General Other: We discussed risk and benefits of general anesthesia including PONV, sore throat (sometimes severe), corneal abrasion, positioning and peripheral nerve injuries, life threatening allergic reaction, post operative ICU admission requiring prolonged intubation, aspiration, stroke, heart attack, , and rare incidences of recall. Patient consents to proceed with general anesthesia. Plan GETA, arterial line, defibrillation/cardiovdrsion patches, possible central line Risk of > 500 ml blood loss (7ml/kg in children): No Other Pertinent Information Pre op labs drawn and sent 02/27/22, no results noted. Re-ordered for DOS along with Type and Screen. Cardilogist contacted by pre op RN. Per software designer hold apixaban, continue clopidogrel through surgery . Medications/Allergies Home Medications Medication Instructions Recorded Confirmed Last Taken Type isosorbide mononitrate 30 mg 30 mg PO DAILY 04/12/21 02/27/22 Unknown History tablet,extended release 24 hr nitroglycerin 0.4 mg sublingual 0.4 mg sublingual Q5MIN PRN Chest 04/12/21 02/27/22 Unknown History tablet Pain potassium chloride 20 mEq 20 meq PO BID 04/12/21 02/27/22 Unknown History tablet,extended release(part/cryst) rosuvastatin 40 mg tablet 40 mg PO DAILY 04/12/21 02/27/22 Unknown History multivit with min-folic 1 tab PO DAILY 04/25/21 02/26/22 Unknown History acid-lutein 400 mcg-250 mcg chewable tablet (Centrum Silver) acetaminophen 500 mg tablet 500 mg PO Q6H PRN Pain 05/21/21 02/27/22 Unknown History (Tylenol Extra Strength) losartan 100 mg tablet 100 mg PO DAILY 08/22/21 02/27/22 Unknown History furosemide 40 mg tablet 40 mg PO BID #0 tabs 11/08/21 02/27/22 Unknown Rx apixaban 5 mg tablet (Eliquis) 5 mg PO BID@0900,2100 #90 tabs 12/04/21 02/27/22 Unknown Rx amiodarone 100 mg tablet 100 mg PO DAILY #90 tabs 12/19/21 02/27/22 Unknown Rx clopidogrel 75 mg tablet 75 mg PO DAILY #90 tabs 01/28/22 02/27/22 Unknown Rx Thumb Spica #1 ea 02/26/22 02/26/22 Unknown Rx Allergies Allergy/AdvReac Type Severity Reaction Status Date / Time JACKIE Inhibitors Allergy Unknown Unknown Verified 02/26/22 08:10 aspirin Allergy ALGY-Hives Verified 02/26/22 08:10 Latex, Natural Rubber Allergy ALGY-Rash Verified 02/27/22 10:12 [facility] Anesthesia Medical History Acute [place] Acute non-ST elevation myocardial infarction (NSTEMI) Atrial fibrillation Rate control on anticoagulation Coronary artery disease Coronary artery disease Hyperlipidemia Hypertension Well-controlled Sustained VT (ventricular tachycardia) Continue current regimen including beta-sudhir, amiodarone. Appear to be stable not in VT anymore. Can be discharged home. Ventricular tachycardia Surgical History Stented coronary artery Social History Smoking and tobacco status: never smoked Alcohol intake: never Data Anesthesia Cardiac Studies: Echocardiogram 04/12/21 Echocardiogram Limited Views 04/25/21 Echocardiogram Ultrasound 08/02/20
[2022-02-27 14:08] LABS: Basophils % 0.7 %; Eosinophils # 0.4 10^3/uL (0.0-0.8); Eosinophils % 6.8 %; Hemoglobin 9.3 g/dL (11.7-16.6); Lymphocytes # 1.5 10^3/uL (0.8-4.8); Lymphocytes % 28.3 %; Mean Corpuscular Volume 93.5 fl (80-94); Mean Platelet Volume 10.2 fL (7.4-10.4); Monocytes # 0.8 10^3/uL (0.2-0.9); Monocytes % 14.7 %; Neutrophils # 2.68 10^3/uL (1.8-7.7); Neutrophils % 49.1 %; Nucleated Red Blood Cells % 0 %; Platelet Count 267 10^3/cmm (130-400); Red Blood Count 3.21 10^6/uL (4.1-5.3); White Blood Count 5.5 10^3/uL (4.0-10.0)
[2022-02-27 14:32] LABS: Anion Gap 15.4 (5-19); Blood Urea Nitrogen 25 mg/dL (8-23); Calcium 8.8 mg/dL (8.5-10.5); Carbon Dioxide 24 mmol/L (22-29); Chloride 101 mmol/L (98-107); Glucose 81 mg/dL (65-115); Osmolality Calculated 285 mOsm/kg (285-295); Potassium 4.4 mmol/L (3.5-5.1); Sodium 136 mmol/L (136-145)
[2022-02-27 14:40] LABS: Creatinine Clr Calc Pharmacy 41.2446
[2022-03-02] VITALS (26 sets, daily range): BP systolic 95–164; BP diastolic 55–121; PULSE 50–89; RESP 12–19; TEMP 36.1–36.9; O2SAT 91–100; BMI 32.7
--- NOTE | 2022-03-02 | SCC_ITS ---
Procedure done: 1. T7-T12 Posterior spine instrumentation 2. Use of computer navigation Stereotactic for spine 42 seconds of fluoroscopic guidance, for a cumulative dose of 96.4 mGy, was provided to Dr. Zhang by the radiology department. C-arm images of the lumbar spine were saved for the patient's permanent record. [facility]
--- NOTE | 2022-03-02 | XR_ITS ---
WS: [id number] Exam: XR thoracic spine 1V [id number] Date/Time of Exam: 03/02/2022 12:00 AM Reason For Exam: T7-T12 fusion Intraoperative images of the mid and lower thoracic spine submitted for evaluation. AP and lateral images depict pedicle screws in place from T7 to T12. No other significant finding on this limited study.
--- NOTE | 2022-03-02 06:51 | W.PM.OPSUD ---
Surgery/Procedure H&P Update DATE OF PROCEDURE: March 02, 2022 DATE H&P PERFORMED: 02/26/22 H&P UPDATE INFORMATION: I have reviewed H&P completed within last 30 days, I have examined patient prior to procedure and No changes to prior documentation PREOP DIAGNOSIS: T9-T10 Fracture PLANNED PROCEDURE: Operation Date: 03/02/22 07:00 Proposed Procedures p T7-T12 POSTERIOR INSTRUMENTAION PERCUTANEOUSLY [id number]/17089/M45.4(Not Applicable) - Juan Zhang DO
[2022-03-02] MEDS: sodium chloride 0.9% 1,000 ML 30 ML IV (06:53)
[2022-03-02 06:58] LABS: Basophils # 0.1 10^3/uL (0.0-0.1); Eosinophils # 0.4 10^3/uL (0.0-0.8); Hematocrit 28.7 % (42.0-52.0); Lymphocytes # 1.8 10^3/uL (0.8-4.8); Lymphocytes % 28.1 %; Mean Corpuscular HGB Conc 31.4 g/dL (30.0-36.0); Mean Corpuscular Hemoglobin 28.9 pg (28.0-34.0); Mean Corpuscular Volume 92.3 fl (80-94); Mean Platelet Volume 9.6 fL (7.4-10.4); Monocytes # 0.9 10^3/uL (0.2-0.9); Monocytes % 14.8 %; Neutrophils # 3.14 10^3/uL (1.8-7.7); Neutrophils % 49.9 %; Nucleated Red Blood Cells % 0 %; Platelet Count 275 10^3/cmm (130-400); Red Blood Count 3.11 10^6/uL (4.1-5.3); Red Cell Distribution Width 17.1 % (12.1-15.1); White Blood Count 6.3 10^3/uL (4.0-10.0)
--- NOTE | 2022-03-02 06:59 | P.ANESUD_ITS ---
Pre-Anesthetic Update Pre-Anesthetic Assessment: Date of Surgery/Procedure: 03/02/22 Preop Becca gnosis: T9-T10 Fracture Proposed Procedure: Operation Date: 03/02/22 07:00 Proposed Procedures p T7-T12 POSTERIOR INSTRUMENTAION PERCUTANEOUSLY [id number]/48791/M45.4(Not Applicable) - Juan Zhang, DO Any changes to Pre-Anesthetic Assessment?: No Last Intake: Intake Last Liquid Date 03/01/22 Last Liquid Time 21:15 Last Solid Date 03/01/22 Last Solid Time 16:30 Labs Last 48hrs: Short CBC 03/02/22 Range/Units 06:42 WBC 6.3 (4.0-10.0) 10^3/ uL Hgb 9.0 L (11.7-16.6) g/dL Hct 28.7 L (42.0-52.0) % MCV 92.3 (80-94) fl Plt Count 275 (130-400) 10^3/c mm Neut % (Auto) 49.9 % Neut # (Auto) 3.14 (1.8-7.7) 10^3/u L Vitals: Temperature 97.0 F L 03/02/22 06:15 Temperature Source Temporal Artery S can 03/02/22 06:15 Pulse Rate 50 L 03/02/22 06:15 Respiratory Rate 18 03/02/22 06:15 Blood Pressure 124/63 03/02/22 06:15 Blood Pressure Carey n 83 03/02/22 06:15 Pulse Oximetry 95 03/02/22 06:15 Oxygen Delivery Me thod 03/02/22 06:23 Exam: Pre-Anes Outpt Exam: alert, oriented x 3, clear to auscultation bilaterally and regular rate & rhythm Cardiac Studies: Echocardiogram 04/12/21 Echocardiogram Limited Views 04/25/21 Echocardiogram Ultrasound 08/02/20
[2022-03-02] MEDS: ceFAZolin 2,000 MG in sodium chloride 0.9% (plus) 50 ML 100 MG IV ×3 (07:07→20:50)
[2022-03-02 07:21] LABS: Anion Gap 14.3 (5-19); Blood Urea Nitrogen 31 mg/dL (8-23); Calcium 9.3 mg/dL (8.5-10.5); Carbon Dioxide 23 mmol/L (22-29); Chloride 104 mmol/L (98-107); Glucose 92 mg/dL (65-115); Osmolality Calculated 290 mOsm/kg (285-295); Potassium 4.3 mmol/L (3.5-5.1); Sodium 137 mmol/L (136-145)
[2022-03-02] MEDS: vancomycin 1,000 MG SDV 1000 MG XX (08:34)
--- NOTE | 2022-03-02 08:37 | SUR.OPER ---
Family Notified Of Patient's Status Via Phone.
--- NOTE | 2022-03-02 09:00 | P.ANESASSM_ITS ---
Pre-Anesthetic Assessment Height/Weight: Height 1.78 m Weight 89.358 kg Temp Pulse Resp BP Pulse Ox O2 Del Method 97.0 F L 50 L 18 124/63 95 03/02/22 06:15 03/02/22 06:15 03/02/22 06:15 03/02/22 06:15 03/02/22 06:15 03/02/22 06:23 Preop Diagnosis: T9-T10 Fracture Operation Date: 03/02/22 07:00 Proposed Procedures p T7-T12 POSTERIOR INSTRUMENTAION PERCUTANEOUSLY [id number]/[id number]/M45.4(Not Applicable) - Juan Zhang DO Last intake: Intake Last Liquid Date 03/01/22 Last Liquid Time 21:15 Last Solid Date 03/01/22 Last Solid Time 16:30 CV/HEM Acquired Immunodeficiency Syndrome Medications/Allergies Home Medications Medication Instructions Recorded Confirmed Last Taken Type isosorbide mononitrate 30 mg 30 mg PO DAILY 04/12/21 03/02/22 03/01/22 History tablet,extended release 24 hr nitroglycerin 0.4 mg sublingual 0.4 mg sublingual Q5MIN PRN Chest 04/12/21 03/02/22 Unknown History tablet Pain potassium chloride 20 mEq 20 meq PO BID 04/12/21 03/02/22 03/01/22 History tablet,extended release(part/cryst) rosuvastatin 40 mg tablet 40 mg PO DAILY 04/12/21 03/02/22 03/01/22 History multivit with min-folic 1 tab PO DAILY 04/25/21 03/02/22 03/01/22 History acid-lutein 400 mcg-250 mcg chewable tablet (Centrum Silver) acetaminophen 500 mg tablet 500 mg PO Q6H PRN Pain 05/21/21 03/02/22 03/01/22 History (Tylenol Extra Strength) losartan 100 mg tablet 100 mg PO DAILY 08/22/21 03/02/22 03/01/22 History furosemide 40 mg tablet 40 mg PO BID #0 tabs 11/08/21 03/02/22 03/01/22 Rx apixaban 5 mg tablet (Eliquis) 5 mg PO BID@0900,2100 #90 tabs 12/04/21 03/02/22 02/27/22 Rx amiodarone 100 mg tablet 100 mg PO DAILY #90 tabs 12/19/21 03/02/22 03/01/22 Rx clopidogrel 75 mg tablet 75 mg PO DAILY #90 tabs 01/28/22 03/02/22 03/02/22 05:00 Rx Thumb Spica #1 ea 02/26/22 02/26/22 Unknown Rx hydrocodone 5 mg-acetaminophen 325 1 tab PO Q6H PRN Pain 03/02/22 03/02/22 03/02/22 05:00 History mg tablet levothyroxine 75 mcg tablet 75 mcg PO DAILY 03/02/22 03/02/22 03/01/22 History Allergies Allergy/AdvReac Type Severity Reaction Status Date / Time JACKIE Inhibitors Allergy Unknown Unknown Verified 03/02/22 06:16 aspirin Allergy ALGY-Hives Verified 03/02/22 06:16 Latex, Natural Rubber Allergy ALGY-Rash Verified 03/02/22 06:16 Current Medications Generic Name Dose Route Start Last Admin Trade Name Freq PRN Reason Stop Dose Admin Sodium Chloride 1,000 mls @ 30 mls/hr 03/02/22 06:00 03/02/22 06:53 Sodium Chloride 0.9% IV 03/03/22 05:59 30 mls/hr .Q24H RICARDO Administration PFSH Anesthesia Medical History Acute [place] Acute non-ST elevation myocardial infarction (NSTEMI) Atrial fibrillation Rate control on anticoagulation Coronary artery disease Coronary artery disease Hyperlipidemia Hypertension Well-controlled Sustained VT (ventricular tachycardia) Continue current regimen including beta-ashley, amiodarone. Appear to be s table not in VT anymore. Can be discharged home. Ventricular tachycardia Surgical History Stented coronary artery Social History Smoking and tobacco status: never smoked Alcohol intake: never Data Anesthesia : 03/02/22 06:42 03/02/22 06:40 Short CBC 03/02/22 Range/Units 06:42 WBC 6.3 (4.0-10.0) 10^3/uL Hgb 9.0 L (11.7-16.6) g/dL Hct 28.7 L (42.0-52.0) % MCV 92.3 (80-94) fl Plt Count 275 (130-400) 10^3/cmm Neut % (Auto) 49.9 % Neut # (Auto) 3.14 (1.8-7.7) 10^3/uL BMP 03/02/22 06:40 Sodium 137 Potassium 4.3 Chloride 104 Carbon Dioxide 23 BUN 31 H Creatinine 1.7 H Glucose 92 Calcium 9.3 Blood Bank 03/02/22 06:40 Blood Type A Positive Rho(D) Type Positive Antibody Screen Negative Cardiac Studies: Echocardiogram 04/12/21 Echocardiogram Limited Views 04/25/21 Echocardiogram Ultrasound 08/02/20
--- NOTE | 2022-03-02 10:48 | PM.OP ---
Operative Report Date of procedure: March 02, 2022 Pre-op diagnosis: Preop Diagnosis T9-T10 Fracture Post-op diagnosis: same Procedure done: 1. T7-T12 Posterior spine instrumentation 2. Use of computer navigation Stereotactic for spine Surgeon: Juan Zhang Rodeo Performer: Julio Cesar Louie Rodeo Performer: The rn surgical pcu, Julio Cesar Louie, BRANDY was needed for his expertise with spine fracture. He was important and necessary throughout the procedure to complete in a safe and timely manner. He assisted with patient positioning prepping and draping tissue retraction suctioning of the operative field protection of the dural sac and tissue closure Estimated blood loss (mL): 100 Procedure: 1. T7-T12 Posterior spine instrumentation 2. Use of computer navigation Stereotactic for spine Patient was brought to the operative suite after undergoing anesthesia all areas impingement were well-padded after he was placed into the prone position. Patient was then prepped and draped in normal sterile fashion. Skin incision was made over the L1 spinous process. A spinous process clamp was clamped onto the spinous process. And then this will fiducial was attached to this. The C-arm was brought in and the information from the serum after it spun around the patient was linked into the computer in order to facilitate using computer navigation to play screws. Next attention was brought to placing screws. This was done by using a computer navigated Jamshidi needle. This was placed at the lateral edge of the pedicle and then driven into the pedicle and following computer navigation. This was brought about mcfp into the vertebral body. Then a guidewire was passed. Then a computer navigated tap was used and then the screw was placed under computer navigation. T10-11 and 12 were 6.5 screws T7-8 and 9 were 4.5 screws. The screws were placed using this technique bilaterally at T7, T8, T9, T10, T11, and T12. Once the screws were passed the C-arm was again brought in and spun around the patient in order to facilitate evaluating screw. Screws were found to be in good position. Next attention was brought to passing the rods. The rods were bent in order to facilitate the patient's kyphosis and then were passed subcutaneously under the fascia. 3 to the screws this was done bilaterally. And caps were then passed to lock the rods down. Rods were then torqued into position. And then the tubes were then broken off. AP lateral fluoroscopy ensure that the hardware and fracture in good position. Wounds were then irrigated vancomycin powder was placed and wounds were closed with 0 Vicryl 2-0 Vicryl and Monocryl suture. Sterile dressings were applied and patient was transferred to PACU in stable condition.
[2022-03-02] MEDS: HYDROmorphone 1 mg/mL INJ 1 mL 0.25 MG IVP ×2 (11:05→11:20)
--- NOTE | 2022-03-02 11:29 | SUR.PHASEI ---
1039 PT TO PACU AWAKE RESTLESS ON RT SIDE, PT MOANING AND SAYING , ( OH IT HURTS , GET ME UP) PT REORIENTED FREQUENTLY TO PLACE AND RECENT SURGERY, MONITIR PACED RYTHM IN 50'S, NO ECTOPY, VSS IV TO RT WRIST #20 PATENT WITH NS 150ML UP AT KVO RATE PER GRAVITY. ARTERIAL LINE TO RT INNER WRIST PATENT FLUSHES EASILY,WRIST BRACE IN PLACE, IV #18 TO LT FOREARM, PATENT WITH BLOOD TUBING AND NS, HEPLOCKED. PT BACK DRESSING D/I LARGE DRESSING TO BACK CONKLIN CATHETER LATEX FREE PATENT OF YELLOW URINE TO TUBING AND BAG, STATLOCK TO RT INNER THIGH. BILAT SCDS ON .PT MOVES BOTH LOWER EXTREMITIES WEAKLY TO COMMAND, EQUALLY, PT CONFUSED AND DOES NOT FOLLOW INSTRUCTIONS WELL 1105 PT CRYING OUT WITH PAIN, SEE MED GIVEN, PT AWAKE ORIENTED TO SELF ONLY, DRESSING TO BACK D/I PT CONTINUES TO MOVE BILAT FEET EQUALLY, DR GUTIERREZ AT BEDSIDE, NO FAMILY IN WAITING ROOM.
--- NOTE | 2022-03-02 11:54 | SUR.PHASEI ---
1120 PT STILL C/O OF PAIN OF 10 PT REPOSTIONED TO BACK PER PT REQUEST, PT DRESSING TO BACK D/I CONKLIN EMPTIED OF YELLOW CLEAR URINE, PT REMAINS CONFUSED TO ALL BUT SELF, FAMILY Keila MCELROY CALLED AND UPDATED PT STABLE AND WAITING FOR FLOOR ROOM, FAMILY NOT HERE AT THIS TIME TO SIGN PERMISSION FOR LABS , NURSING DOOR TO DOOR SALESMAN CALLED AND VERBAL CONSENT NOT ADEQUATE IN THIS CASE. 1200 PT SLEEPS OFF AND ON , PT C/O OF PAIN OF 10 ON AWAKENING, THEN QUICKLY BACK TO SLEEP VSS IV PATENT ,PREPARING TO PULL ART LINE.
--- NOTE | 2022-03-02 12:38 | SUR.PHASEI ---
PT SLEEPS IF NOT DISTURBED ART LINE REMOVED INTACT TO RT WRIST, DRESSING TO BACK D/I RT HAND PINK WARM, WITH CAP RFILL LESS THAN 3 SECONDS, PT MOVES BILAT FEET TO COMMAND, PT REMAINS CONFUSED TO ALL BUT NAME, PT NOW OUT OF PHASE ONE AND IN HOLDING WILL CALL REPORT.
--- NOTE | 2022-03-02 12:40 | PM.CONSULT ---
Providers/Reason For Consult Consulting Physician/Specialty*: Emmanuel Villarreal MD, Hospitalist Reason for Consult*: Medical management Attending Physician: Juan Zhang DO Primary Care Provider: Gene Peralta History of Present Illness History of Present Illness Jesus Saucedo is a 86 year old male who underwent spinal surgery today secondary to fracture at T9/10 following a fall on February 21. He has a past medical history of ischemic cardiomyopathy and atrial fibrillation for which she was on Eliquis and Plavix. Eliquis was held prior to surgery, but Plavix continued. From my understanding his estimated blood loss was only 100 cc, he tolerated surgery well without complication. I am seeing the patient in the direct postoperative period. He is able to answer few questions but is still sleepy. He denies any chest discomfort currently. He has some back pain, which is expected following his surgery. Review of Systems General: Reports: 10 or more systems reviewed and unremarkable except in HPI and below Const: Denies: fever(s) Eyes: Denies: change in vision ENMT: Denies: throat pain Card: Denies: chest pain Resp: Denies: dyspnea GI: Denies: abdominal pain : Denies: flank pain Musc: Reports: back pain Skin/Breast: Denies: rash Neuro: Denies: headache(s) Psych: Denies: anxiety or depression Endo: Denies: polyuria Lyle/Lymph: Denies: easy bruising All/Imm: Denies: urticaria Medications/Allergies Home Medications Medication Instructions Recorded Confirmed Last Taken Type isosorbide mononitrate 30 mg 30 mg PO DAILY 04/12/21 03/02/22 03/01/22 History tablet,extended release 24 hr nitroglycerin 0.4 mg sublingual 0.4 mg sublingual Q5MIN PRN Chest 04/12/21 03/02/22 Unknown History tablet Pain potassium chloride 20 mEq 20 meq PO BID 04/12/21 03/02/22 03/01/22 History tablet,extended release(part/cryst) rosuvastatin 40 mg tablet 40 mg PO DAILY 04/12/21 03/02/22 03/01/22 History multivit with min-folic 1 tab PO DAILY 04/25/21 03/02/22 03/01/22 History acid-lutein 400 mcg-250 mcg chewable tablet (Centrum Silver) acetaminophen 500 mg tablet 500 mg PO Q6H PRN Pain 05/21/21 03/02/22 03/01/22 History (Tylenol Extra Strength) losartan 100 mg tablet 100 mg PO DAILY 08/22/21 03/02/22 03/01/22 History furosemide 40 mg tablet 40 mg PO BID #0 tabs 11/08/21 03/02/22 03/01/22 Rx apixaban 5 mg tablet (Eliquis) 5 mg PO BID@0900,2100 #90 tabs 12/04/21 03/02/22 02/27/22 Rx amiodarone 100 mg tablet 100 mg PO DAILY #90 tabs 12/19/21 03/02/22 03/01/22 Rx clopidogrel 75 mg tablet 75 mg PO DAILY #90 tabs 01/28/22 03/02/22 03/02/22 05:00 Rx Thumb Spica #1 ea 02/26/22 02/26/22 Unknown Rx Bone Growth Stimulator [id number] #1 ea 03/02/22 Unknown Rx hydrocodone 5 mg-acetaminophen 325 1 tab PO Q6H PRN Pain 03/02/22 03/02/22 03/02/22 05:00 History mg tablet levothyroxine 75 mcg tablet 75 mcg PO DAILY 03/02/22 03/02/22 03/01/22 History Allergies Allergy/AdvReac Type Severity Reaction Status Date / Time JACKIE Inhibitors Allergy Unknown Unknown Verified 03/02/22 06:16 aspirin Allergy ALGY-Hives Verified 03/02/22 06:16 Latex, Natural Rubber Allergy ALGY-Rash Verified 03/02/22 06:16 Current Medications Generic Name Dose Route Start Last Admin Trade Name Freq PRN Reason Stop Dose Admin Hydromorphone HCl 0.25 mg 03/02/22 07:22 03/02/22 11:20 Hydromorphone 1 Mg/Ml Inj 1 Ml IVP 03/03/22 07:22 0.25 mg Q10M PRN Administration Pain level 4-6 PACU Phase I Sodium Chloride 1,000 mls @ 30 mls/hr 03/02/22 06:00 03/02/22 06:53 Sodium Chloride 0.9% IV 03/03/22 05:59 30 mls/hr .Q24H RICARDO Administration PFSH Acute PFSH: Medical History (Updated 03/02/22 @ 12:47 by Emmanuel Villarreal MD) Acute [place] Acute non-ST elevation myocardial infarction (NSTEMI) Anemia Atrial fibrillation Rate control on anticoagulation Chronic kidney disease Coronary artery disease Coronary artery disease Hyperlipidemia Hypertension Well-controlled Sustained VT (ventricular tachycardia) Continue current regimen including beta-ashley, amiodarone. Appear to be stable not in VT anymore. Can be discharged home. Ventricular tachycardia Surgical History Stented coronary artery Family History Other CAD (coronary artery disease) Social History Smoking and tobacco status: never smoked Alcohol intake: never Vitals/I&O/Wt Last Vital Signs Temp 97.5 F L 03/02/22 12:20 Pulse 52 L 03/02/22 12:20 Resp 16 03/02/22 12:20 BP 140/85 03/02/22 12:20 Pulse Ox 98 03/02/22 12:20 O2 Del Method 03/02/22 12:20 O2 Flow Rate 3 03/02/22 12:20 03/01/22 03/02/22 03/02/22 22:59 06:59 14:59 Intake Total 950 / 950 Output Total 250 / 250 Balance 700 / 700 Physical Exam Narrative: General exam demonstrates a white male, complaining of back pain, who can focus and answer a few questions in the postoperative period HEENT: Pupils are equally round. Head is atraumatic and normocephalic. There is a small abrasion left cheek, likely from tape. Oropharynx is clear Neck is supple no lymphadenopathy or thyromegaly Cardiovascular regular rate and rhythm with a 2/6 systolic murmur heard best at the right upper sternal border Lungs clear no wheezing or crackles Abdomen is soft positive bowel sounds. No obvious organomegaly exam demonstrates Whitman catheter Extremities demonstrate no cyanosis or clubbing. Trace edema is present. He is able to move both lower extremities with dorsi and plantar flexion Skin no rash, see findings on HEENT. Neuro no obvious focal deficits Urinary Catheter Management: 2-way Urethral Latex Free: Cath Placed During This Visit: yes Urinary Catheter Date of Insertion: 03/02/22 Urinary Catheter Time of Insertion: 07:25 Data : 03/02/22 06:42 03/02/22 06:40 Other Labs: Preoperative EKG demonstrated ventricular paced rhythm A&P Assessment and plan (1) Thoracic spine fracture: Patient is directly postoperative T7-T12 instrumentation and fusion for T9/10 chalk stick fracture. Eliquis was held preoperatively, Plavix continued. As per orthopedic spine surgery Therapy consultations Status: Acute (2) Anemia: Patient with anemia preoperatively Monitor hemoglobin postoperatively Status: Acute (3) Chronic kidney disease: Patient with evidence of chronic kidney disease Avoid renal toxic medication No NSAIDs Status: Acute (4) Coronary artery disease: Continue patient's home medications Status: Acute (5) Atrial fibrillation: Currently on amiodarone, anticoagulant. Note that he has a ventricular pacer and was in a paced rhythm prior to surgery Status: Acute (6) Hypertension: Continue home medications Status: Acute (7) Cardiomyopathy: Has known ischemic cardiomyopathy. Last intervention April 2021 with 2 RCA and 2 LAD stents. Ejection fraction is approximately 35 to 40%. Reduce postoperative fluids to 50 cc an hour, monitor for any fluid overload Status: Acute Plan Multiple other medical problems as outlined in his past medical history Full code currently Eliquis will suffice for DVT prophylaxis Thank you for this consultation Consult Attestations Medical Necessity Statement: As per primary Coding Level of Care Code Acute Surgical Elastic Knitter Hand Frame for Chg Fwd Diagnoses Thoracic spine fracture S22.009A Anemia D64.9 Chronic kidney disease N18.9 Coronary artery disease I25.10 Atrial fibrillation I48.91 Hypertension I10 Cardiomyopathy I42.9
--- NOTE | 2022-03-02 13:05 | SUR.PHASEI ---
PT TO FLOOR PER BED, GRANDDAUGHTER CHANG CALLED AND UPDATED THAT PT IS GOING TO 255 BED 2 , PT AWAKES OFF AND ON, SLEEPS IF NOT DISTURBED, PT ORIENTED TO SELF AND SURGERY ONLY, VSS MONITOR REMAINS PACED NO ECTOPY, BEDSIDE HANDOFF TO RN, DRESSING D/I CONKLIN PATENT AND IV TO RT WRIST PATENT. PT MOVES BILAT FEET TO COMMAND.
--- NOTE | 2022-03-02 13:27 | ANE.PACU2 ---
Inpatient post-anesthesia follow up: Airway intact: Yes Vital signs: Temperature 97.8 F Pulse Rate 50 Respiratory Rate 12 Blood Pressure 154/93 Pulse Oximetry 98 Oxygen Delivery Me thod Nasal Cannula Oxygen Flow Rate 3 Fraction of Inspir ed Oxygen Hydration adequate: Yes Nausea and vomiting: No Pain level: 1 Mental status: Baseline
[2022-03-02] MEDS: HYDROcodone-acetaminophen 5-325 mg Tablet PO ×3 (14:16→23:18)
[2022-03-02] MEDS: lactated ringers 1,000 ML 50 ML IV (14:43)
[2022-03-02] MEDS: docusate sodium 100 mg Capsule PO (18:03)
[2022-03-02] MEDS: FUROsemide 40 mg Tablet PO (18:03)
[2022-03-02] MEDS: potassium chloride ER 20 mEq Tablet PO (18:03)
[2022-03-03] VITALS (12 sets, daily range): BP systolic 106–140; BP diastolic 46–66; PULSE 56–63; RESP 16–18; TEMP 36.4–36.8; O2SAT 90–98
[2022-03-03] MEDS: HYDROcodone-acetaminophen 5-325 mg Tablet PO ×3 (03:20→13:02)
--- NOTE | 2022-03-03 03:25 | PC.NURSE ---
Patient weaned to room air. Oxygen saturation 95 percent on room air.
[2022-03-03] MEDS: ceFAZolin 2,000 MG in sodium chloride 0.9% (plus) 50 ML 100 MG IV (04:27)
--- NOTE | 2022-03-03 06:06 | PC.NURSE ---
Patient alert and oriented, but forgetful. Bed alarm set.
--- NOTE | 2022-03-03 07:28 | PM.PN ---
Subjective Subjective: POD 1 Patient sitting at bedside with mild back pain. Denies any shortness of breath, chest pain, headaches. Vitals/I&O/Wt Last Vital Signs Temp 98.0 F 03/03/22 03:53 Pulse 56 L 03/03/22 03:53 Resp 18 03/03/22 03:53 BP 135/66 03/03/22 03:53 Pulse Ox 96 03/03/22 03:53 O2 Del Method 03/03/22 03:53 O2 Flow Rate 2 03/02/22 23:40 03/02/22 03/03/22 03/03/22 22:59 06:59 14:59 Intake Total 580 / 1530 950 / 2480 Output Total 1400 / 1650 Balance 580 / 1280 -450 / 830 Weight last 48 hrs Weight 228 lb 3.2 oz Physical Exam Narrative: Patient presents alert and oriented x3 with a good general appearance normal mood and affect. Normal coordination normal stability. Mild tenderness around the incisional site with the incision appear clean and dry. No signs of erythema or drainage. No signs of infection. Patient denies any fevers or chills. 4/5 motor strength both lower extremities with negative straight leg raise bilaterally. Calves are supple no medial thigh tenderness. Pulses are 2+ at the dorsalis pedis and posterior tibial region. Good capillary refill throughout normal sensation light touch both lower extremities. Urinary Catheter Management: 2-way Urethral Latex Free: Cath Placed During This Visit: yes, but has since been removed by the nurse Reason for Continuing Indwelling Catheter: Decision to DC Catheter Urinary Catheter Date of Insertion: 03/02/22 Urinary Catheter Time of Insertion: 07:25 Date Urinary Catheter Removed: 03/03/22 Time Urinary Catheter Discontinued: 05:27 Data : 03/02/22 06:42 03/02/22 06:40 A&P Assessment and plan (1) Thoracic spine fracture: Physical therapy to evaluate and mobilize. No bending lifting or twisting activities. Continue incentive spirometry for pulmonary toilet. We will see him back in the office in 1 week's time for wound check. Status: Acute (2) S/P spinal fusion: Status: Acute Attestations Medical Necessity Statement*: home later today if stable with Physical therapy Coding Level of Care Code Acute Plant Health Care Technician for Lawson Zelaya Diagnoses Thoracic spine fracture S22.009A S/P spinal fusion Z98.1
[2022-03-03] MEDS: FUROsemide 40 mg Tablet PO (08:02)
[2022-03-03] MEDS: multivitamin therapeutic Tablet 1 TAB PO (08:02)
[2022-03-03] MEDS: atorvastatin 40 mg Tablet 80 MG PO (08:02)
[2022-03-03] MEDS: potassium chloride ER 20 mEq Tablet PO (08:03)
[2022-03-03] MEDS: clopidogrel 75 mg Tablet PO (08:03)
[2022-03-03] MEDS: amiodarone 200 mg Tablet 100 MG PO (08:03)
[2022-03-03] MEDS: docusate sodium 100 mg Capsule PO (08:03)
[2022-03-03] MEDS: losartan 50 mg Tablet 100 MG PO (08:03)
[2022-03-03] MEDS: levothyroxine 75 mcg Tablet PO (08:03)
[2022-03-03] MEDS: isosorbide mononitrate ER 30 mg Tablet PO (08:03)
--- NOTE | 2022-03-03 08:46 | PM.PN ---
Subjective Subjective: Jesus reports it is hard to get comfortable secondary to his back pain. His catheter was removed this morning and he is having some difficulty urinating. Denies any chest pain. Reports his shortness of breath is at baseline. Medications: Reviewed: Yes Vitals/I&O/Wt Last Vital Signs Temp 97.6 F 03/03/22 07:33 Pulse 60 03/03/22 07:33 Resp 18 03/03/22 07:33 BP 140/61 03/03/22 08:03 Pulse Ox 93 03/03/22 07:33 O2 Del Method 03/03/22 07:33 O2 Flow Rate 2 03/02/22 23:40 03/02/22 03/03/22 03/03/22 22:59 06:59 14:59 Intake Total 580 / 1530 950 / 2480 Output Total 1400 / 1650 Balance 580 / 1280 -450 / 830 Weight last 48 hrs Weight 103.51 kg Physical Exam Narrative: General exam complains of some back pain Neck is supple no lymphadenopathy or thyromegaly Cardiovascular regular rate and rhythm with a 2/6 systolic murmur heard best at the right upper sternal border Lungs clear no wheezing or crackles Abdomen is soft positive bowel sounds. No obvious organomegaly Extremities demonstrate no cyanosis or clubbing. Trace edema is present. He is able to move both lower extremities with dorsi and plantar flexion Skin no rash, see findings on HEENT. Urinary Catheter Management: 2-way Urethral Latex Free: Cath Placed During This Visit: yes, but has since been removed by the nurse Reason for Continuing Indwelling Catheter: Decision to DC Catheter Urinary Catheter Date of Insertion: 03/02/22 Urinary Catheter Time of Insertion: 07:25 Date Urinary Catheter Removed: 03/03/22 Time Urinary Catheter Discontinued: 05:27 Data : 03/02/22 06:42 03/02/22 06:40 A&P Assessment and plan (1) Thoracic spine fracture: Patient is postoperative day #1 T7-T12 instrumentation and fusion for T9/10 chalk stick fracture. Eliquis was held preoperatively, Plavix continued. Both have currently been restarted As per orthopedic spine surgery Therapy consultations Status: Acute (2) Anemia: Patient with anemia preoperatively. Awaiting repeat hemoglobin today Status: Acute (3) Chronic kidney disease: Patient with evidence of chronic kidney disease Avoid renal toxic medication No NSAIDs Awaiting repeat creatinine today Status: Acute (4) Coronary artery disease: Continue patient's home medications Status: Acute (5) Atrial fibrillation: Currently on amiodarone, anticoagulant. Note that he has a ventricular pacer and was in a paced rhythm prior to surgery Status: Acute (6) Hypertension: Continue home medications Status: Acute (7) Cardiomyopathy: Has known ischemic cardiomyopathy. Last intervention April 2021 with 2 RCA and 2 LAD stents. Ejection fraction is approximately 35 to 40%. Reduce postoperative fluids to 50 cc an hour, monitor for any fluid overload IV fluids can now be discontinued Status: Acute Plan Multiple other medical problems as outlined in his past medical history Full code currently Tan will suffice for DVT prophylaxis Thank you for this consultation Attestations Medical Necessity Statement*: As per primary Coding Level of Care Code Acute Test Lab Technician for Lawson Zelaya Diagnoses Thoracic spine fracture S22.009A Anemia D64.9 Chronic kidney disease N18.9 Coronary artery disease I25.10 Atrial fibrillation I48.91 Hypertension I10 Cardiomyopathy I42.9
[2022-03-03 08:50] LABS: Basophils % 0.1 %; Hematocrit 25.3 % (42.0-52.0); Hemoglobin 7.9 g/dL (11.7-16.6); Lymphocytes # 1.3 10^3/uL (0.8-4.8); Lymphocytes % 11.1 %; Mean Corpuscular HGB Conc 31.2 g/dL (30.0-36.0); Mean Corpuscular Hemoglobin 29.3 pg (28.0-34.0); Mean Corpuscular Volume 93.7 fl (80-94); Mean Platelet Volume 9.4 fL (7.4-10.4); Monocytes % 8.1 %; Neutrophils # 9.41 10^3/uL (1.8-7.7); Neutrophils % 80.1 %; Nucleated Red Blood Cells % 0 %; Platelet Count 246 10^3/cmm (130-400); Red Cell Distribution Width 17.3 % (12.1-15.1); White Blood Count 11.8 10^3/uL (4.0-10.0)
[2022-03-03 09:02] LABS: Blood Urea Nitrogen 29 mg/dL (8-23); Carbon Dioxide 22 mmol/L (22-29); Chloride 102 mmol/L (98-107); Glucose 103 mg/dL (65-115); Osmolality Calculated 288 mOsm/kg (285-295); Sodium 136 mmol/L (136-145)
[2022-03-03 09:06] LABS: Anion Gap 16.8 (5-19); Potassium 4.8 mmol/L (3.5-5.1)
--- NOTE | 2022-03-03 12:04 | PC.CHAP ---
Pastoral Care Encounter/Spiritual Assessment Type of Contact [] Declined doctor of nurse anesthesia practice visit [] Patient/Family/Request visit [] Outpatient visit [] Follow-up visit [] Physician referral [] Code/Alert [x] Routine visit [] Staff referral [] Actively dying [] Patient sleeping [] Family support [] [] Out of room [] Palliative care [] [] Receiving care in room [] Pre-surgical visit [] Trauma [] Long length of stay [] ICU visit [] Other: Relational/Emotional Strength [x] Patient feels connected with others/family/visitors/staff [] Distress [] Loneliness/isolation [] Abandonment Spirituality of Patient [x] Person of Shy [] Attends Jainism of their Shy [x] Believes in Prayer [] Reads Bible or Anglican materials [] There are Spiritual issues to be addressed Paper Baler Interventions x] Prayer [] Active listening [] Non-anxious presence [] Spiritual/emotional support [] Crisis/trauma care [] Spiritual counseling [] Bereavement support [] Provided bereavement packet [] Provided Bible/devotional materials [] Provided toy/stuffed animal, coloring book to patient or family member [] Provided Communion [] Anointing/[place] [] Salvation [x] Completed spiritual assessment [] Other: Impact on Illness or Injury [] Angry [] Fearful [] Anxious [] Often cries [] Exhaustion [] Unable to work [] Unable to attend orthodoxy [] Unable to walk/stand [] Unable to read [] Unable to drive [] Unable to eat/drink [] Unable to sleep [] Unable to be with family [] Patient intubated [] Other: Summary Time spent with patient t5 min
[2022-03-03] MEDS: FUROsemide 10 mg/mL SDV 2mL 20 MG IVP (13:53)
[2022-03-03] MEDS: sodium chloride 0.9% (100 ml) 100 ML (13:53)
--- NOTE | 2022-03-05 11:16 | P.DS_ITS ---
Discharge Providers Date of Admission: 03/02/22 12:37 Date of Discharge: 03/03/2022 Attending Provider at Admission: Juan Zhang DO Attending Provider at Discharge: Juan Zhang DO Primary Care Provider: Gene Peralta Diagnoses at Discharge Discharge Diagnosis (1) Thoracic spine fracture: Status: Acute (2) Anemia: Status: Acute (3) Chronic kidney disease: Status: Acute (4) Coronary artery disease: Status: Acute (5) Atrial fibrillation: Status: Acute Permanent problem details: Rate control on anticoagulation (6) Hypertension: Status: Acute Permanent problem details: Well-controlled (7) Cardiomyopathy: Status: Acute Permanent problem details: History of ischemic cardiomyopathy, do not need revascularization, continue optimal medical regimen Reason for Visit Reason for Visit: T7-T12 POSTERIOR INSTRUMENTATION PERCUTANEOUSLY 22 Hospital Course Hospital Course uneventful Physical Exam Urinary Catheter Management: 2-way Urethral Latex Free: Cath Placed During This Visit: yes, but has since been removed by the nurse Reason for Continuing Indwelling Catheter: Decision to DC Catheter Urinary Catheter Date of Insertion: 03/02/22 Urinary Catheter Time of Insertion: 07:25 Date Urinary Catheter Removed: 03/03/22 Time Urinary Catheter Discontinued: 05:27 Discharge Data Studies Completed and Pending Completed Studies During Hospitalization Category Date Time Status XR thoracic spine 1V 26030 Routine Exams 03/02/22 Completed Laboratory Results WBC 11.8 10^3/uL (4.0-10.0) H 03/03/22 08:38 RBC 2.70 10^6/uL (4.1-5.3) L 03/03/22 08:38 Hgb 7.9 g/dL (11.7-16.6) L 03/03/22 08:38 Hct 25.3 % (42.0-52.0) L 03/03/22 08:38 MCV 93.7 fl (80-94) 03/03/22 08:38 MCH 29.3 pg (28.0-34.0) 03/03/22 08:38 MCHC 31.2 g/dL (30.0-36.0) 03/03/22 08:38 RDW 17.3 % (12.1-15.1) H 03/03/22 08:38 Plt Count 246 10^3/cmm (130-400) 03/03/22 08:38 MPV 9.4 fL (7.4-10.4) 03/03/22 08:38 Neut % (Auto) 80.1 % 03/03/22 08:38 Lymph % (Auto) 11.1 % 03/03/22 08:38 Crook % (Auto) 8.1 % 03/03/22 08:38 Eos % (Auto) 0.0 % 03/03/22 08:38 Baso % (Auto) 0.1 % 03/03/22 08:38 Neut # (Auto) 9.41 10^3/uL (1.8-7.7) H 03/03/22 08:38 Lymph # (Auto) 1.3 10^3/uL (0.8-4.8) 03/03/22 08:38 Crook # (Auto) 1.0 10^3/uL (0.2-0.9) H 03/03/22 08:38 Eos # (Auto) 0.0 10^3/uL (0.0-0.8) 03/03/22 08:38 Baso # (Auto) 0.0 10^3/uL (0.0-0.1) 03/03/22 08:38 Nucleated RBC % (auto) 0 % 03/03/22 08:38 Nucleated RBCs # 0.0 /100WBC 03/03/22 08:38 Sodium 136 mmol/L (136-145) 03/03/22 08:38 Potassium 4.8 mmol/L (3.5-5.1) 03/03/22 08:38 Chloride 102 mmol/L (98-107) 03/03/22 08:38 Carbon Dioxide 22 mmol/L (22-29) 03/03/22 08:38 Anion Gap 16.8 (5-19) 03/03/22 08:38 BUN 29 mg/dL (8-23) H 03/03/22 08:38 Creatinine 1.4 mg/dL (0.7-1.2) H 03/03/22 08:38 GFR Calculation Not Reportable 03/03/22 08:38 Glucose 103 mg/dL (65-115) 03/03/22 08:38 Calculated Osmolality 288 mOsm/kg (285-295) 03/03/22 08:38 Calcium 9.0 mg/dL (8.5-10.5) 03/03/22 08:38 Blood Type A Positive 03/02/22 06:40 Rho(D) Type Positive 03/02/22 06:40 Antibody Screen Negative 03/02/22 06:40 Crossmatch See Detail 03/02/22 06:40 Vitals Last Vital Signs Temp 97.6 F 03/03/22 15:55 Pulse 63 03/03/22 15:55 Resp 18 03/03/22 15:55 BP 122/62 03/03/22 15:55 Pulse Ox 98 03/03/22 15:55 O2 Del Method 03/03/22 11:43 O2 Flow Rate 1 03/03/22 08:00 Discharge Plan Discharge Patient Disposition: Home Health Service Condition: Stable Prescriptions: New hydrocodone-acetaminophen 5-325 mg Tablet 1 - 2 tab PO Q4H PRN (Reason: Moderate To Severe Pain) Qty: 30 0RF Continued acetaminophen [Tylenol Extra Strength] 500 mg tablet 500 mg PO Q6H PRN (Reason: Pain) losartan 100 mg tablet 100 mg PO QAM (DME) Thumb Spica See Rx Instructions .Route .MEDSUPPLY Qty: 1 0RF Rx Instructions: As directed. (DME) Bone Growth Stimulator E0748 See Rx Instructions .Route .MEDSUPPLY Qty: 1 0RF Rx Instructions: As directed isosorbide mononitrate 30 mg tablet extended release 24 hr 30 mg PO QAM potassium chloride 20 mEq tablet,ER particles/crystals 20 meq PO BID nitroglycerin 0.4 mg tablet, sublingual 0.4 mg sublingual Q5MIN PRN (Reason: Chest Pain) rosuvastatin 40 mg tablet 40 mg PO BEDTIME Centrum Silver 400-250 mcg Tablet,Chewable 1 tab PO DAILY hydrocodone-acetaminophen 5-325 mg Tablet 1 tab PO Q6H MDD 4 tabs PRN (Reason: Pain) levothyroxine 75 mcg tablet 75 mcg PO QAM No Action bumetanide 2 mg tablet 2 mg PO BID trazodone 50 mg tablet 50 mg PO BEDTIME PRN (Reason: Sleep) metoprolol tartrate 100 mg tablet 100 mg PO BID albuterol sulfate 90 mcg/actuation HFA aerosol inhaler 2 puff INHALATION Q6H PRN (Reason: Shortness Of Breath) clopidogrel 75 mg tablet 75 mg PO QAM amiodarone 100 mg tablet 100 mg PO QAM Eliquis 5 mg tablet 5 mg PO BID@ Discharge Orders: Discharge Order (Routine); Ordered 03/03/22 Ordered By: Julio Cesar Louie Referrals: [facility] [Outside] Juan Zhang DO [Physician] - 03/17/22 10:30 am (APPOINTMENT WITH [facility]) Discharge Diet: Advance as tolerated Discharge Activity: Limit activity as instructed Patient Instructions: Hydrocodone/Acetaminophen (By mouth), Anterior Posterior Spinal Fusion (DC), Opioid Safety Activity Restrictions/Additional Instructions: Thank you for choosing [facility] for your care! The following is a list of instructions, from your provider, to follow upon your discharge to ensure you have the optimal recovery from your recent injury or surgery. Follow-up care is a graves part of your treatment and safety. Be sure to make and go to all appointments and call your doctor if you are having problems. If you do not already have a follow-up appointment made, call Dr. Zhang's] office in the next 1-3 days to make follow up appointment for 1 weeks at [phone]. It is also a good idea to know your test results and keep a list of the medicines you take. Medications will be prescribed for you at your provider's discretion. These medications are to be used as instructed; if they are taken more often that pre scribed they will not be refilled early and in most cases will not be refilled at all. > When a refill is needed, you should contact jef guerrero 2-3 business days before your prescription runs out. Medications will NOT be refilled by ssn/ssbn weapons equipment operator providers after hours! > Many pain medications contain Tylenol (Acetaminophen). Do not consume more than 4,000 mg of Tylenol per day in total with any combination of medications. > Pain medications can cause constipation. Please use an over the counter stool softener as directed, while taking pain medications. Consult your local pharmacist with questions or recommendations on stool softeners. If constipation persists, contact our office or your primary care provider. > While under our care, you are not to receive pain medications or other controlled substances from any other provider unless our office is notified and approves. Any attempts to do so will result in refusal to prescribe any further pain medications and possible dismissal from our practice. ? Walking is essential for the healing process after surgery. We would like you to slowly advance your walking. This should be done on rel atively flat clear ground (inside or out) or can be done on a treadmill. Remember this goal does not have to happen all at once, slowly increase your distance and duration. This can be broken into more more than one walk per day as tolerated. Patients who walk as directed after surgery rarely require Physical Therapy. In the unlikely event this issue arises your provider will direct hospital staff to make the appropriate arrangements. ? No lifting over 5 pounds {a gallon of milk) or bending/twisting until further notice. Each of these activities places an unnecessary amount of stress onto the body and can impede the delicate healing process. > Instead of bending at the waist, keep your back straight and bend at the knees. > Instead of twisting your torso, keep your back straight and turn your entire body with your feet. ? You may sleep in any position which makes you comfortable. Many patients find comfort sleeping in a reclining chair. It is not abnormal to have difficulty sleeping for the first several weeks following your surgery. We recommend trying Benadry! or Tylenol PM as directed to help with your sleeping difficulties. Both medications are over the counter and available without prescription. ? NO SMOKING!!! Smoking dramatically increases the probability of developing postoperative wound infections. ? Common complaints after lumbar and/or thoracic spine surgery include, but are not limited to: numbness and/or tingling in the legs, pain around the incision and surrounding tissues, muscle spasms, or stiffness of the middle to low back. Contact our office if these symptoms persist or if an acute change occurs. ? No driving for the first 3-5days, and not while taking narcotics until seen at your follow-up appointment and cleared. There are no restrictions for riding on short trips, however if you take a longer trip, arrangements should be made to make regular stops to get out of the vehicle and stretch . ? Swelling is an unfortunate event that will take place with any surgery and is the primary source of your postoperative discomfort. While walking and regular approved activities helps control inflammation, there are additional steps you can take to minimize swelling. > Place ice over the surgical site and surrounding tissue for twenty minutes, followed by applying a low/medium heat (heating pad) for an additional twenty minutes every 1-2 hours as needed for painrelief. > You may use of over the counter anti-inflammatory medications (Ibuprofen, Motrin, Aleve, Advil, etc) as directed on the package label. These types of medicines will significantly reduce the amount of discomfort you experience after surgery from swelling. It should be noted that if you have and allergy to any of these medications, or a history of ulcers or kidney disease you should consult you primary care provider prior to starting these medications. Discharge Attestations Time Spent in Discharge Care*: less than 30 min Quality Metrics Clinical Quality Measures [ No reported AMI, CVA or VTE this stay] Coding Level of Care Code Acute [facility] [place] note Diagnoses Thoracic spine fracture S22.009A Anemia D64.9 Chronic kidney disease N18.9 Coronary artery disease I25.10 Atrial fibrillation I48.91 Hypertension I10 Cardiomyopathy I42.9
== END 2022-03-03 15:55 | disposition home health service (06) | DRG 460 ==
LOC: MEDSURG 12:37
PROVIDERS: Anesthesiology; Internal Medicine; Admitting Provider Orthopaedic Surgery; PCP Family Medicine; Visit Provider Orthopaedic Surgery
PROC: 0RG70J1 Fusion of 2 to 7 Thoracic Vertebral Joints with Synthetic Substitute, Posterior Approach, Posterior Column, Open Approach (ICD-10-PCS; principal; 2022-03-02 07:00)
DX: S22.079A Unspecified fracture of T9-T10 vertebra, initial encounter for closed fracture (principal); X58.XXXA Exposure to other specified factors, initial encounter; M45.4 Ankylosing spondylitis of thoracic region; Z88.8 Allergy status to other drugs, medicaments and biological substances; Z79.02 Long term (current) use of antithrombotics/antiplatelets; Z79.51 Long term (current) use of inhaled steroids; I25.2 Old myocardial infarction; I48.91 Unspecified atrial fibrillation; I25.10 Atherosclerotic heart disease of native coronary artery without angina pectoris; Z95.5 Presence of coronary angioplasty implant and graft; E78.5 Hyperlipidemia, unspecified; I12.9 Hypertensive chronic kidney disease with stage 1 through stage 4 chronic kidney disease, or unspecified chronic kidney disease; N18.9 Chronic kidney disease, unspecified; I25.5 Ischemic cardiomyopathy; D63.1 Anemia in chronic kidney disease; Z79.891 Long term (current) use of opiate analgesic
CPT/HCPCS: 36415; 36416; 36430; 51702; 71045; 72020; 76000; 80048; 80053; 81001; 82962; 85014; 85018; 85025; 86706; 86803; 86850; 86900; 86920; 87086; 87340; 87426; 87806; 93005; 96374; 97116; 97161; 97530; 99285; C1713; J1100; J1170; J1940; J2270; J2370; J2405; J2704; J3010; J3370; J3490; J7030; J7050; P9040

== ENCOUNTER 2022-03-04 08:00 | Inpatient (IN) | payer MEDICARE, OTHER, SELFPAY ==
[2022-03-04] VITALS (9 sets, daily range): BP systolic 122–150; BP diastolic 55–68; PULSE 60–89; RESP 15–25; TEMP 36.6–37.3; O2SAT 84–94; BMI 28.3
--- NOTE | 2022-03-04 08:18 | PC.NURSE ---
Pt reportedly had previously fallen, resulting in a broken wrist and needing back surgery. pt reports he had a back surgery, but does not know what kind of surgery, discharged home yesterday. reports he came to ED because of back pain, states he was up all night because of the pain. States he was prescribed hydrocodone-acetaminophen 5-325mg a few days prior to surgery from his PCP. Was not discharged home with any different pain medications due to this. Family reports pt is wanting to be admitted to the hospital for pain control due to his pain medication is prescribed every 6 hours and that it only lasts around an hour. Also would like his catheter that was placed during hospitalization taken out. reports he was told he is supposed to have the catheter in until his follow up with his PCP. Pt resting in bed, lung sounds clear bilat. 2+ edema to BLE, reportedly baseline for pt, clear yellow urine noted in catheter bag. skin pink/warm/dry.
--- NOTE | 2022-03-04 08:23 | ED_ITS ---
HPI - Back Pain/Injury General: Chief Complaint: Back Pain/Injury Stated Complaint: Back pain from surgery Time Seen by Provider: 03/04/22 08:05 Source: patient Mode of arrival: ambulatory Limitations: no limitations History of Present Illness: 86-year-old male who underwent thoracic spine surgery 2 days ago at our facility. Patient has a known history of ankylosing spondylitis patient had a traumatic fracture of ankle spine at T9 and 10 and underwent external fixation from T7-T12 posteriorly done by Dr. Zhang. He was discharged home yesterday states he had significant pain last night was not able to sleep. Prior to his procedure he was on Eliquis. He has a history of an ischemic cardiomyopathy as well and has atrial fibrillation hospitalist was consulted postoperatively. Eliquis was held prior to surgery with the Plavix was continued. He has some chronic kidney disease in addition although this. Postop his fluids are managed to avoid congestive heart failure. His primary complaint today is that of pain in his back he has no significant shortness of breath or orthopnea. MD elicited complaint: back pain Pertinent past history: prior back pain Quality: sharp Location: thoracic spine Radiation: none Exacerbating factors: movement and walking Relieving factors: sitting upright Context: other (Recent surgery) Associated symptoms: Reports difficulty walking, fatigue and weakness; Deny abdominal pain, arthralgias, chills, change in bowel habits, dysuria, fecal incontinence, fever(s), hematuria, myalgias, nausea, numbness, syncope, tingling/numbness/burning, urinary frequency, urinary urgency or vomiting Review of Systems Const: Reports: fatigue and malaise; Denies: fever(s) or chills ENMT: Denies: throat pain, ear or mastoid pain, nasal discharge or nasal congestion Card: Denies: chest pain or syncope Resp: Denies: dyspnea, productive cough or non-productive cough GI: Denies: abdominal pain, nausea, vomiting, fecal incontinence or change in bowel habits : Reports: difficulty urinating (Postop urinary retention); Denies: dysuria, urinary urgency or hematuria Musc: Reports: back pain Skin/Breast: Denies: rash or pruritus Neuro: Reports: difficulty walking PFSH ED PFSH: Medical History (Updated 03/04/22 @ 09:40 by Jayant Nowak DO) Acute [place] Acute non-ST elevation myocardial infarction (NSTEMI) Anemia Atrial fibrillation Rate control on anticoagulation Chronic kidney disease Coronary artery disease Coronary artery disease Hyperlipidemia Hypertension Well-controlled Sustained VT (ventricular tachycardia) Continue current regimen including beta-ashley, amiodarone. Appear to be stable not in VT anymore. Can be discharged home. Ventricular tachycardia Surgical History Stented coronary artery Family History Other CAD (coronary artery disease) Social History Smoking and tobacco status: never smoked Alcohol intake: never Physical Exam Const: COMMON NORMALS: no acute distress GENERAL APPEARANCE: cooperative and comfortable ORIENTATION/CONSCIOUSNESS: Yes awake, Yes oriented to person, Yes oriented to place and Yes oriented to time HENMT: COMMON NORMALS: normocephalic, atraumatic and hearing grossly normal bilaterally HEAD & SCALP: normocephalic and atraumatic Resp: COMMON NORMALS: normal respiratory effort, No retractions, No use of accessory muscles and clear to auscultation bilaterally AUSCULTATION: clear to auscultation bilaterally Cardio: COMMON NORMALS: regular rate, regular rhythm and No murmurs present (Cardio) RATE: regular rate RHYTHM: regular rhythm GI: COMMON NORMALS: Soft to palpation and No hepatosplenomegaly present AUSCULTATION: Yes normoactive bowel sounds PALPATION: Yes Soft to palpation, No Tenderness to palpation present (GI), No Guarding due to palpation present (GI) and Yes No hepatosplenomegaly present Extremity: COMMON NORMALS: normal to inspection, capillary refill normal, no clubbing, cyanosis or edema, no calf tenderness and no pedal edema Neuro: SENSORIUM/ORIENTATION: Yes oriented to person, Yes oriented to place and Yes oriented to time Skin: COMMON NORMALS: no rashes or lesions noted GENERAL SKIN EXAM: no rashes or lesions noted OTHER: Examination of the skin incision there is some ecchymosis around the incision sites of very mild periincisional erythema and no signs of infection no evidence of drainage no evidence of hematoma significant swelling or purulence. Course Vital Signs: Vital signs: Vital Signs Temperature 97.8 F 03/04/22 08:07 Pulse Rate 70 03/04/22 09:33 Respiratory Rate 25 H 03/04/22 09:33 Blood Pressure 128/68 03/04/22 09:33 Pulse Oximetry 92 03/04/22 09:33 Oxygen Delivery Me thod 03/04/22 08:07 MDM - Back Pain/Injury Medical Decision Making Discussed with Dr. Zhang from orthopedics. He will readmit for pain control. He has consultation note from hospitalist for medical management anticipate placement for rehab Medical Records I reviewed the patient's medical records. Labs I reviewed the patient's lab results. : 03/04/22 09:15 03/04/22 09:15 Radiology Impressions Chest X-Ray 03/04/22 08:36 IMPRESSION: 1. Cardiac enlargement. No change. 2. No acute infiltrate or other significant finding. Discharge Plan Discharge Patient Disposition: Admitted As Inpatient Admit Provider: Juan Zhang Clinical Impression: Thoracic spine fracture, S/P spinal fusion, Hypertension, Chronic kidney disease, Status post implantation of automatic cardioverter/defibrillator (AICD), Cardiomyopathy, Atrial fibrillation, Anemia, Coronary artery disease Condition: Stable Coding Level of Care Code ED Bilingual Customer Service for Chg Garcia
--- NOTE | 2022-03-04 08:36 | ECG_ITS ---
[facility] Test Date: 2022-03-04 Pat Name: Jesus Saucedo Department: Room: Gender: Male [employer]: : [id number] Requested By: Jayant Leavitt Order Number: [id number] Anders MD: Carrie Dallas M.D. Measurements Intervals [place] Rate: 62 P: W[place]: QRS: -3 QRSD: 123 T: -86 QT: 477 QTc: 487 Interpretive Statements POSSIBLY SINUS RHYTHM WITH DEMAND V PACING AND PVC'S MODERATE INTRAVENTRICULAR CONDUCTION DELAY [110+ ms QRS DURATION] ST DEVIATION AND MODERATE T-WAVE ABNORMALITY, CONSIDER ANTEROLATERAL ISCHEMIA DEVIATION AND MODERATE T-WAVE ABNORMALITY, CONSIDER INFERIOR ISCHEMIA Compared to ECG 02/27/2022 10:53:28 Intraventricular conduction delay now present T-wave abnormality now present Possible ischemia now present Prolonged QT interval no longer present Electronically Signed On 03-05-2022 6:08:13 CDT by Carrie Dallas M.D. [id number]
--- NOTE | 2022-03-04 08:36 | XR_ITS ---
WS: [id number] Exam: XR chest 1V portable [id number] Date/Time of Exam: 03/04/2022 8:46 AM Reason For Exam: dyspnea/cough Comparison 11/08/2021. The lungs are fully expanded and clear. The heart is enlarged but unchanged in size. A cardiac pacer superimposes the left chest. No pleural effusions noted. Fusion hardware in the thoracic spine. Bony structures are otherwise intact. XR/XR chest 1V portable [id number] IMPRESSION: 1. Cardiac enlargement. No change. 2. No acute infiltrate or other significant finding.
[2022-03-04 09:23] LABS: Basophils % 0.4 %; Eosinophils # 0.1 10^3/uL (0.0-0.8); Eosinophils % 1.4 %; Hematocrit 27.8 % (42.0-52.0); Hemoglobin 8.7 g/dL (11.7-16.6); Lymphocytes # 1.4 10^3/uL (0.8-4.8); Lymphocytes % 14.9 %; Mean Corpuscular HGB Conc 31.3 g/dL (30.0-36.0); Mean Corpuscular Hemoglobin 28.8 pg (28.0-34.0); Mean Corpuscular Volume 92.1 fl (80-94); Mean Platelet Volume 9.1 fL (7.4-10.4); Monocytes % 10.8 %; Neutrophils # 6.61 10^3/uL (1.8-7.7); Nucleated Red Blood Cells % 0 %; Platelet Count 227 10^3/cmm (130-400); Red Blood Count 3.02 10^6/uL (4.1-5.3); Red Cell Distribution Width 17.7 % (12.1-15.1); White Blood Count 9.2 10^3/uL (4.0-10.0)
[2022-03-04] MEDS: fentaNYL 50 mcg/mL INJ 2mL IVP (09:24)
--- NOTE | 2022-03-04 09:29 | P.CONIM_ITS ---
Providers/Reason For Consult Consulting Physician/Specialty*: Emmanuel Villarreal MD, Hospitalist Reason for Consult*: MEdical Mgmt Requesting Physician: Dr. Zhang Attending Physician: Juan Zhang DO Primary Care Provider: Gene Peralta History of Present Illness History of Present Illness Jesus Saucedo is a 86 year old male to the emergency department with uncontrolled pain. Released from the hospital yesterday after spinal surgery for fracture at T9/T10. He received his surgery on March 02, with fusion and instrumentation T7-T12. He did well during his hospital stay with the exception of anemia, acute on chronic likely from blood loss in which he received 1 unit of packed red blood cells. He also had some urinary retention for which a catheter was placed and left on the discharge. He reports he has quite a bit of back pain. He is still getting up and down. It is uncontrolled with his current hydrocodone order. He feels a little nauseous because of the pain. He states his breathing is short but it always is. Chest discomfort. Family is present during my interview. Review of Systems General: Reports: 10 or more systems reviewed and unremarkable except in HPI and below Const: Denies: fever(s) or chills Eyes: Denies: change in vision ENMT: Denies: throat pain Card: Denies: chest pain Resp: Reports: dyspnea GI: Denies: abdominal pain Musc: Reports: back pain; Denies: neck pain Skin/Breast: Denies: rash Psych: Reports: sleeping less; Denies: anxiety or depression Endo: Denies: polyuria Lyle/Lymph: Denies: easy bruising All/Imm: Denies: urticaria Medications/Allergies Home Medications Medication Instructions Recorded Confirmed Last Taken Type isosorbide mononitrate 30 mg 30 mg PO QAM 04/12/21 03/04/22 03/01/22 History tablet,extended release 24 hr nitroglycerin 0.4 mg sublingual 0.4 mg sublingual Q5MIN PRN Chest 04/12/21 03/04/22 Unknown History tablet Pain potassium chloride 20 mEq 20 meq PO BID 04/12/21 03/04/22 03/03/22 History tablet,extended release(part/cryst) rosuvastatin 40 mg tablet 40 mg PO BEDTIME 04/12/21 03/04/22 03/03/22 History multivit with min-folic 1 tab PO DAILY 04/25/21 03/04/22 03/03/22 History acid-lutein 400 mcg-250 mcg chewable tablet (Centrum Silver) acetaminophen 500 mg tablet 500 mg PO Q6H PRN Pain 05/21/21 03/04/22 03/01/22 History (Tylenol Extra Strength) losartan 100 mg tablet 100 mg PO QAM 08/22/21 03/04/22 03/03/22 History Thumb Spica #1 ea 02/26/22 03/04/22 Unknown Rx Bone Growth Stimulator E0748 #1 ea 03/02/22 03/04/22 Unknown Rx hydrocodone 5 mg-acetaminophen 325 1 tab PO Q6H PRN Pain 03/02/22 03/04/22 03/04/22 03:00 History mg tablet levothyroxine 75 mcg tablet 75 mcg PO QAM 03/02/22 03/04/22 03/03/22 History hydrocodone 5 mg-acetaminophen 325 1 - 2 tab PO Q4H PRN Moderate To 03/03/22 03/04/22 Unknown Rx mg tablet Severe Pain #30 tabs albuterol sulfate 90 mcg/actuation 2 puff inhalation Q6H PRN 03/04/22 03/04/22 Unknown History aerosol inhaler Shortness Of Breath amiodarone 100 mg tablet 100 mg PO QAM 03/04/22 03/04/22 03/03/22 History apixaban 5 mg tablet (Eliquis) 5 mg PO BID@07,19 03/04/22 03/04/22 03/03/22 History bumetanide 2 mg tablet 2 mg PO BID 03/04/22 03/04/22 03/03/22 History clopidogrel 75 mg tablet 75 mg PO QAM 03/04/22 03/04/22 03/03/22 History metoprolol tartrate 100 mg tablet 100 mg PO BID 03/04/22 03/04/22 03/03/22 History trazodone 50 mg tablet 50 mg PO BEDTIME PRN Sleep 03/04/22 03/04/22 5 Days Ago History ~02/27/22 doesnt want pt Allergies Allergy/AdvReac Type Severity Reaction Status Date / Time JACKIE Inhibitors Allergy Unknown Unknown Verified 03/04/22 09:41 aspirin Allergy ALGY-Hives Verified 03/04/22 09:41 Latex, Natural Rubber Allergy ALGY-Rash Verified 03/04/22 09:41 PFSH Acute PFSH: Medical History Acute [place] Acute non-ST elevation myocardial infarction (NSTEMI) Anemia Atrial fibrillation Rate control on anticoagulation Chronic kidney disease Coronary artery disease Coronary artery disease Hyperlipidemia Hypertension Well-controlled Sustained VT (ventricular tachycardia) Continue current regimen including beta-ashley, amiodarone. Appear to be stable not in VT anymore. Can be discharged home. Ventricular tachycardia Surgical History Stented coronary artery Family History Other CAD (coronary artery disease) Social History Smoking and tobacco status: never smoked Alcohol intake: never Vitals/I&O/Wt Last Vital Signs Temp 97.8 F 03/04/22 08:07 Pulse 89 03/04/22 08:07 Resp 23 H 03/04/22 09:24 BP 138/57 03/04/22 08:07 Pulse Ox 94 03/04/22 09:24 O2 Del Method 03/04/22 08:07 Weight last 48 hrs Weight 89.358 kg Physical Exam Narrative: White male, complaining of back pain in the area of surgery. Conversant. HEENT: Atraumatic and normocephalic. Pupils equally round. Oropharynx clear. Neck is supple no lymphadenopathy thyromegaly Cardiovascular regular rate and rhythm with 2/6 systolic murmur Lungs diminished breath sounds Abdomen is soft with positive bowel sounds. No obvious organomegaly. No pain exam Whitman Extremities 2+ edema Skin no rash Neuro no focal deficits Back demonstrates bandage covering surgical site. Will defer to orthopedics for evaluation of this. Data : 03/04/22 09:15 03/04/22 09:15 Other Labs: LFTs normal with exception of AST of 71 Urinalysis ordered and pending Chest x-ray no infiltrate A&P Assessment and plan (1) S/P spinal fusion: Post operative day number 2 . Readmitted today with increased pain. Pain control per primary PT eval discharge planning Status: Acute (2) Cardiomyopathy: Continue current home meds. Status: Acute (3) Chronic kidney disease: Renal function currently stable Status: Acute (4) Atrial fibrillation: Heart rate controlled currently Continue Eliquis. Status: Acute (5) Anemia: Transfused yesterday. Had acute on chronic anemia, likely acute post operative blood loss. Hemoglobin today is appropriate following transfusion yesterday. Continue to monitor inpatient. Status: Acute (6) Hypertension: Continue home meds. Status: Acute Plan Other medical problems as listed in [facility] Eliquis will suffice for DVT prophylaxis. Thank you for consultation. Consult Attestations Medical Necessity Statement: As per primary. Coding Level of Care Code Acute Locomotive Engineer Electric for g Fwd Diagnoses S/P spinal fusion Z98.1 Cardiomyopathy I42.9 Chronic kidney disease N18.9 Atrial fibrillation I48.91 Anemia D64.9 Hypertension I10
--- NOTE | 2022-03-04 09:42 | PC.NURSE ---
attempted to call report for Med Surg. Nurse unavailable at this time and will return call to ED for report.
[2022-03-04 09:46] LABS: Alanine Aminotransferase 34 U/L (0-41); Albumin Level 3.4 g/dL (3.5-5.2); Alkaline Phosphatase 124 U/L (40-130); Anion Gap 11.8 (5-19); Aspartate Amino Transferase 71 U/L (0-40); Blood Urea Nitrogen 28 mg/dL (8-23); Calcium 9.2 mg/dL (8.5-10.5); Carbon Dioxide 26 mmol/L (22-29); Chloride 100 mmol/L (98-107); Globulin 3.3 g/dL (1.3-4.6); Glucose 113 mg/dL (65-115); Osmolality Calculated 282 mOsm/kg (285-295); Potassium 4.8 mmol/L (3.5-5.1); Sodium 133 mmol/L (136-145); Total Bilirubin 0.9 mg/dL (0.15-1.2); Total Protein 6.7 g/dL (6.6-8.7)
--- NOTE | 2022-03-04 09:48 | PC.PHAR ---
pts and daughter verified pts medications-rx filled 02/17/22 30d/ for trazodone 50mg hs pts states stop giving the pt this medication 5 days ago states she doesnt want the pt to take-states the pt is only using the albuterol inhaler-spiriva respimat filled 11/11/21 states pt not using-notes made in the pharmacy comment
--- NOTE | 2022-03-04 10:51 | P.HP_ITS ---
Providers/Chief Complaint Admitting Physician: Juan Zhang DO Primary Care Provider: Gene Peralta Chief Complaint: Back pain from surgery History of Present Illness Jesus Saucedo is a 86 year old male who underwent a T7-T12 instrumented fusion on 03/02/2022. He was discharged home with increased strength of hydrocodone tens but unfortunately the pharmacy would not fill because he had a prescription for hydrocodone fives and it was not time for more pain medication. His pain became uncontrolled last evening could not gain any control of his pain that presented to the emergency room on 03/04/2022. He denies any falls denies any new injuries although his pain is localized in the surgical region. Denies any leg pain denies any shortness of breath or chest pain. His biggest complaint also is the itching around the incisional sites. He was evaluated in room 259 bed 1 with family present and appeared very comfortable. An extensive review of the patient's past medical history, surgical history, allergies, medications, family history, social history, and review of systems was completed Review of Systems Const: Reports: fatigue and malaise; Denies: fever(s) or chills ENMT: Denies: throat pain, ear or mastoid pain, nasal discharge or nasal congestion Card: Denies: chest pain or syncope Resp: Denies: dyspnea, productive cough or non-productive cough GI: Denies: abdominal pain, nausea, vomiting, fecal incontinence or change in bowel habits : Reports: difficulty urinating (Postop urinary retention); Denies: dysuria, urinary urgency or hematuria Musc: Reports: back pain Skin/Breast: Denies: rash or pruritus Neuro: Reports: difficulty walking Medications/Allergies Home Medications Medication Instructions Recorded Confirmed Last Taken Type isosorbide mononitrate 30 mg 30 mg PO QAM 04/12/21 03/04/22 03/01/22 History tablet,extended release 24 hr nitroglycerin 0.4 mg sublingual 0.4 mg sublingual Q5MIN PRN Chest 04/12/21 03/04/22 Unknown History tablet Pain potassium chloride 20 mEq 20 meq PO BID 04/12/21 03/04/22 03/03/22 History tablet,extended release(part/cryst) rosuvastatin 40 mg tablet 40 mg PO BEDTIME 04/12/21 03/04/22 03/03/22 History multivit with min-folic 1 tab PO DAILY 04/25/21 03/04/22 03/03/22 History acid-lutein 400 mcg-250 mcg chewable tablet (Centrum Silver) acetaminophen 500 mg tablet 500 mg PO Q6H PRN Pain 05/21/21 03/04/22 03/01/22 History (Tylenol Extra Strength) losartan 100 mg tablet 100 mg PO QAM 08/22/21 03/04/22 03/03/22 History Thumb Spica #1 ea 02/26/22 03/04/22 Unknown Rx Bone Growth Stimulator E0748 #1 ea 03/02/22 03/04/22 Unknown Rx hydrocodone 5 mg-acetaminophen 325 1 tab PO Q6H PRN Pain 03/02/22 03/04/22 03/04/22 03:00 History mg tablet levothyroxine 75 mcg tablet 75 mcg PO QAM 03/02/22 03/04/22 03/03/22 History hydrocodone 5 mg-acetaminophen 325 1 - 2 tab PO Q4H PRN Moderate To 03/03/22 03/04/22 Unknown Rx mg tablet Severe Pain #30 tabs albuterol sulfate 90 mcg/actuation 2 puff inhalation Q6H PRN 03/04/22 03/04/22 Unknown History aerosol inhaler Shortness Of Breath amiodarone 100 mg tablet 100 mg PO QAM 03/04/22 03/04/22 03/03/22 History apixaban 5 mg tablet (Eliquis) 5 mg PO BID@07,19 03/04/22 03/04/22 03/03/22 History bumetanide 2 mg tablet 2 mg PO BID 03/04/22 03/04/22 03/03/22 History clopidogrel 75 mg tablet 75 mg PO QAM 03/04/22 03/04/22 03/03/22 History metoprolol tartrate 100 mg tablet 100 mg PO BID 03/04/22 03/04/22 03/03/22 History trazodone 50 mg tablet 50 mg PO BEDTIME PRN Sleep 03/04/22 03/04/22 5 Days Ago History ~02/27/22 doesnt want pt Allergies Allergy/AdvReac Type Severity Reaction Status Date / Time JACKIE Inhibitors Allergy Unknown Unknown Verified 03/04/22 09:41 aspirin Allergy ALGY-Hives Verified 03/04/22 09:41 Latex, Natural Rubber Allergy ALGY-Rash Verified 03/04/22 09:41 PFSH Acute 2 PFSH: Medical History (Updated 03/04/22 @ 09:40 by Jayant Nowak DO) Acute [place] Acute non-ST elevation myocardial infarction (NSTEMI) Anemia Atrial fibrillation Rate control on anticoagulation Chronic kidney disease Coronary artery disease Coronary artery disease Hyperlipidemia Hypertension Well-controlled Sustained VT (ventricular tachycardia) Continue current regimen including beta-ashley, amiodarone. Appear to be stable not in VT anymore. Can be discharged home. Ventricular tachycardia Surgical History Stented coronary artery Family History Other CAD (coronary artery disease) Social History Smoking and tobacco status: never smoked Alcohol intake: never Vitals/I&O/Wt Last Vital Signs Temp 97.8 F 03/04/22 08:07 Pulse 60 03/04/22 09:59 Resp 19 H 03/04/22 09:59 BP 150/58 03/04/22 09:59 Pulse Ox 93 03/04/22 09:59 O2 Del Method 03/04/22 10:25 Weight last 48 hrs Weight 197 lb Weight 197 lb Physical Exam Narrative: Patient presents alert and oriented x3 with a good general appearance normal mood and affect. Normal coordination normal stability. Mild tenderness around the incisional site with the incision appear clean and dry. No signs of erythema or drainage. No signs of infection. Patient denies any fevers or chills. 4/5 motor strength both lower extremities with negative straight leg raise bilaterally. Calves are supple no medial thigh tenderness. Pulses are 2+ at the dorsalis pedis and posterior tibial region. 1+ edema in both lower extremities. good capillary refill throughout normal sensation light touch both lower extremities. HENMT: COMMON NORMALS: normocephalic Resp: COMMON NORMALS: normal respiratory effort Cardio: COMMON NORMALS: regular rate and regular rhythm GI: COMMON NORMALS: Soft to palpation and non-tender : COMMON NORMALS: Yes no CVA tenderness Psych: COMMON NORMALS: mental status grossly normal and cooperative Data : 03/04/22 09:15 03/04/22 09:15 A&P Assessment and plan (1) S/P spinal fusion: Discussed at length with the family we will place him back on the pain medication that he was taking during his hospitalization 2 days ago which is Oxy codon IR. We will consult physical therapy to begin mobilization and reevaluation. We will consult social service technician for placement. Encourage incentive spirometry for pulmonary toilet. Hospitalist team is available for medical management. We will have SCDs for mechanical DVT prophylaxis. Dressing changed with Silverlon dressing. Status: Acute (2) Thoracic spine fracture: Status: Acute (3) Anemia: Status: Acute Attestations Medical Necessity Statement*: await placement and pain control Coding Level of Care Code Established Pt Acute [place] Machine Operator for Chg Fwd Patient Type Established History Expanded Problem Focused Exam Expanded Problem Focused Medical Decision Making Low Complexity Diagnoses S/P spinal fusion Z98.1 Thoracic spine fracture S22.009A Anemia D64.9
[2022-03-04] MEDS: FUROsemide 10 mg/mL SDV 4mL 40 MG IVP (11:49)
[2022-03-04] MEDS: oxyCODONE 5 mg IR Tab/Cap 10 MG PO ×2 (11:49→17:58)
[2022-03-04 16:23] LABS: Hepatitis B Surface AB 3.5 (11.5-1000); Hepatitis B Surface Antigen Non-Reactive (Nonreactive); Hepatitis C Virus Antibody Non-Reactive (Nonreactive)
[2022-03-04 17:12] LABS: HIV 1 & 2 Antibody Non-Reactive (Non-Reactiv); HIV 1 & 2 Antigen Non-Reactive (Non-Reactiv)
[2022-03-04] MEDS: bumetanide 1 mg Tablet 2 MG PO (17:57)
[2022-03-04] MEDS: metoprolol tartrate 50 mg Tablet 100 MG PO (17:57)
[2022-03-04] MEDS: potassium chloride ER 20 mEq Tablet PO (17:59)
[2022-03-04 18:29] LABS: Add Urine Culture? Yes; Add Urine Microscopic? YES; Bilirubin Urine Neg (Negative); Blood Urine 3+ (Negative); Glucose Urine UA Norm (Normal); Ketones Urine Negative (Negative); Leukocyte Esterase Urine Negative (Negative); Nitrate Urine Negative (Negative); Protein Urine Neg (Negative); RBC Urine 50-80 /hpf (0-2); Squamous Epithelial Cell Urine 0-4 /hpf (0-5); Urine Appearance Clear (CLEAR); Urine Color Yellow (Yellow); Urobilinogen Urine Norm (Negative); WBC Urine 0-4 /hpf (0-5); pH Urine 6.5 (5-7)
[2022-03-04] MEDS: atorvastatin 40 mg Tablet 80 MG PO (20:17)
[2022-03-04] MEDS: apixaban 5 mg Tablet PO (20:17)
[2022-03-04 20:39] LABS: Glucose Point of Care 124 mg/dL (70-110)
[2022-03-05] VITALS (12 sets, daily range): BP systolic 96–146; BP diastolic 44–68; PULSE 50–98; RESP 16–24; TEMP 36.1–36.8; O2SAT 91–96
[2022-03-05] MEDS: oxyCODONE 5 mg IR Tab/Cap 10 MG PO ×4 (01:00→16:30)
[2022-03-05] MEDS: diphenhydrAMINE 12.5 mg/5 mL UDC 10 mL PO ×4 (01:00→17:08)
[2022-03-05 03:09] LABS: Basophils % 0.5 %; Eosinophils # 0.2 10^3/uL (0.0-0.8); Eosinophils % 3.1 %; Hematocrit 27.4 % (42.0-52.0); Hemoglobin 8.6 g/dL (11.7-16.6); Mean Corpuscular HGB Conc 31.4 g/dL (30.0-36.0); Mean Corpuscular Hemoglobin 29.6 pg (28.0-34.0); Mean Corpuscular Volume 94.2 fl (80-94); Mean Platelet Volume 9.3 fL (7.4-10.4); Monocytes # 0.8 10^3/uL (0.2-0.9); Monocytes % 13.1 %; Neutrophils # 4.37 10^3/uL (1.8-7.7); Nucleated Red Blood Cells % 0 %; Platelet Count 193 10^3/cmm (130-400); Red Blood Count 2.91 10^6/uL (4.1-5.3); Red Cell Distribution Width 17.7 % (12.1-15.1); White Blood Count 6.4 10^3/uL (4.0-10.0)
[2022-03-05 03:45] LABS: Anion Gap 10.8 (5-19); Blood Urea Nitrogen 23 mg/dL (8-23); Calcium 8.9 mg/dL (8.5-10.5); Carbon Dioxide 29 mmol/L (22-29); Chloride 98 mmol/L (98-107); Glucose 103 mg/dL (65-115); Osmolality Calculated 282 mOsm/kg (285-295); Potassium 3.8 mmol/L (3.5-5.1); Sodium 134 mmol/L (136-145)
[2022-03-05] MEDS: levothyroxine 75 mcg Tablet PO (05:05)
[2022-03-05] MEDS: amiodarone 200 mg Tablet 100 MG PO (05:05)
[2022-03-05] MEDS: isosorbide mononitrate ER 30 mg Tablet PO (05:05)
[2022-03-05] MEDS: clopidogrel 75 mg Tablet PO (05:06)
[2022-03-05] MEDS: apixaban 5 mg Tablet PO ×2 (05:06→17:04)
[2022-03-05] MEDS: losartan 50 mg Tablet 100 MG PO (05:06)
[2022-03-05 06:15] LABS: Glucose Point of Care 117 mg/dL (70-110)
--- NOTE | 2022-03-05 07:53 | PM.PN ---
Subjective Subjective: Patient resting comfortably. Denies any chest pain, shortness of breath or headaches. Denies any lightheadedness or dizziness. He is very difficult of hearing. Vitals/I&O/Wt Last Vital Signs Temp 98.3 F 03/05/22 07:46 Pulse 53 L 03/05/22 07:46 Resp 18 03/05/22 07:46 BP 117/47 03/05/22 07:46 Pulse Ox 91 03/05/22 07:46 O2 Del Method 03/05/22 07:46 03/04/22 03/05/22 03/05/22 22:59 06:59 14:59 Intake Total 120 / 360 Output Total 2950 / 2950 1000 / 3950 Balance -2830 / -2590 -1000 / -3590 Weight last 48 hrs Weight 197 lb Weight 197 lb Physical Exam Narrative: Patient presents alert and oriented x3 with a good general appearance normal mood and affect. Normal coordination normal stability. Mild tenderness around the incisional site with the incision appear to be clean and dry. No signs of erythema or drainage. No signs of infection. Patient denies any fevers or chills. 4/5 motor strength both lower extremities with negative straight leg raise bilaterally. Calves are supple no medial thigh tenderness. Pulses are 2+ at the dorsalis pedis and posterior tibial region. Good capillary refill throughout normal sensation light touch both lower extremities. Data : 03/05/22 02:48 03/05/22 02:48 A&P Assessment and plan (1) S/P spinal fusion: Physical therapy to mobilize. travel services professional to work with placement to a rehab facility or [facility] facility for continued work on his deconditioning. Continue incentive spirometry for pulmonary toilet. Patient has better control of his pain with the oxycodone IR. Okay to discharge to skilled facility or rehab facility when bed available from an orthopedic standpoint. Status: Acute (2) Anemia: Status: Acute Attestations Medical Necessity Statement*: Awaiting Bed at SNF/Rehab facility Coding Level of Care Code Acute Retail Pharmacist for g Fwd Diagnoses S/P spinal fusion Z98.1 Anemia D64.9
--- NOTE | 2022-03-05 08:19 | PM.PN ---
Subjective Subjective: Jesus reports he has less pain. He denies any shortness of breath. Swelling is better. Medications: Reviewed: Yes Vitals/I&O/Wt Last Vital Signs Temp 98.3 F 03/05/22 07:46 Pulse 53 L 03/05/22 07:46 Resp 18 03/05/22 07:46 BP 117/47 03/05/22 07:46 Pulse Ox 91 03/05/22 07:46 O2 Del Method 03/05/22 07:46 03/04/22 03/05/22 03/05/22 22:59 06:59 14:59 Intake Total 120 / 360 Output Total 2950 / 2950 1000 / 3950 Balance -2830 / -2590 -1000 / -3590 Weight last 48 hrs Weight 89.358 kg Weight 89.358 kg Physical Exam Narrative: White male, reporting his pain is better. Significant diuresis noted from yesterday Neck is supple no lymphadenopathy thyromegaly Cardiovascular regular rate and rhythm with 2/6 systolic murmur Lungs diminished breath sounds Abdomen is soft with positive bowel sounds. No obvious organomegaly. No pain exam Whitman Extremities trace to 1+ edema Skin no rash Neuro no focal deficits Back demonstrates bandage covering surgical site. Will defer to orthopedics for evaluation of this. Data : 03/05/22 02:48 03/05/22 02:48 A&P Assessment and plan (1) S/P spinal fusion: Post operative day number 3 . Readmitted 03/04 with increased pain. Pain control per primary PT eval discharge planning Status: Acute (2) Cardiomyopathy: Continue current home meds. Status: Acute (3) Chronic kidney disease: Renal function currently stable Status: Acute (4) Atrial fibrillation: Heart rate controlled currently Continue Eliquis. Status: Acute (5) Anemia: Transfused 03/04. Had acute on chronic anemia, likely acute post operative blood loss. Hemoglobin appears stable Continue to monitor inpatient. Status: Acute (6) Hypertension: Continue home meds. Status: Acute Plan Urinary retention. Discharged with Whitman last hospital stay. Add Flomax. Other medical problems as listed in [facility] Eliquis will suffice for DVT prophylaxis. Thank you for consultation. Attestations Medical Necessity Statement*: As per primary Coding Level of Care Code Acute Collective Bargaining Specialist for [facility] Fw Diagnoses S/P spinal fusion Z98.1 Cardiomyopathy I42.9 Chronic kidney disease N18.9 Atrial fibrillation I48.91 Anemia D64.9 Hypertension I10
[2022-03-05] MEDS: metoprolol tartrate 50 mg Tablet 100 MG PO ×2 (09:27→17:03)
[2022-03-05] MEDS: potassium chloride ER 20 mEq Tablet PO ×2 (09:27→17:09)
[2022-03-05] MEDS: bumetanide 1 mg Tablet 2 MG PO ×2 (09:27→17:03)
[2022-03-05] MEDS: tamsulosin 0.4 mg Capsule PO (09:30)
--- NOTE | 2022-03-05 10:55 | PC.CHAP ---
Pastoral Care Encounter/Spiritual Assessment Type of Contact [] Declined middle school resource teacher visit [] Patient/Family/Request visit [] Outpatient visit [] Follow-up visit [] Physician referral [] Code/Alert [x] Routine visit [] Staff referral [] Actively dying [] Patient sleeping [] Family support [] [] Out of room [] Palliative care [] [x] Receiving care in room [] Pre-surgical visit [] Trauma [x] Long length of stay [] ICU visit [] Other: Relational/Emotional Strength [x] Patient feels connected with others/family/visitors/staff [] Distress [] Loneliness/isolation [] Abandonment Spirituality of Patient [x] Person of Shy [] Attends Latter-Day of their Shy [x] Believes in Prayer [] Reads Bible or Nondenominational materials [] There are Spiritual issues to be addressed Upkeep Worker Interventions [x] Prayer [x] Active listening [x] Non-anxious presence [x] Spiritual/emotional support [] Crisis/trauma care [x] Spiritual counseling [] Bereavement support [] Provided bereavement packet [] Provided Bible/devotional materials [] Provided toy/stuffed animal, coloring book to patient or family member [] Provided Communion [] Anointing/[place] [] Salvation [x] Completed spiritual assessment [] Other: Impact on Illness or Injury [] Angry [] Fearful [x] Anxious [] Often cries [] Exhaustion [x] Unable to work [] Unable to attend restorationist [] Unable to walk/stand [] Unable to read [] Unable to drive [] Unable to eat/drink [] Unable to sleep [] Unable to be with family [] Patient intubated [] Other: Summary blockage had surgery well prpbable go into rehad or be able to go home at some point has a pastive attitude Time spent with patient 10 mins
[2022-03-05 11:05] LABS: Glucose Point of Care 109 mg/dL (70-110)
[2022-03-05] MEDS: atorvastatin 40 mg Tablet 80 MG PO (20:22)
[2022-03-05] MEDS: sodium chloride 0.9% 250 ML IV (20:50)
[2022-03-06] VITALS (11 sets, daily range): BP systolic 78–144; BP diastolic 36–66; PULSE 55–82; RESP 13–20; TEMP 36.6–37.1; O2SAT 83–97
--- NOTE | 2022-03-06 00:02 | PC.NURSE ---
midnight vitals- O2 sat when this nurse initially took pt O2 sat it was approx 85%. pt was asleep, and when woken up and started talking pt saturation went up to 97% within two minutes.
[2022-03-06 02:39] LABS: Hematocrit 26.4 % (42.0-52.0); Hemoglobin 8.2 g/dL (11.7-16.6)
[2022-03-06 03:13] LABS: Anion Gap 12.6 (5-19); Blood Urea Nitrogen 22 mg/dL (8-23); Calcium 8.6 mg/dL (8.5-10.5); Carbon Dioxide 28 mmol/L (22-29); Chloride 99 mmol/L (98-107); Glucose 100 mg/dL (65-115); Osmolality Calculated 285 mOsm/kg (285-295); Potassium 3.6 mmol/L (3.5-5.1); Sodium 136 mmol/L (136-145)
[2022-03-06] MEDS: oxyCODONE 5 mg IR Tab/Cap 10 MG PO ×2 (04:56→18:23)
[2022-03-06] MEDS: amiodarone 200 mg Tablet 100 MG PO (05:41)
[2022-03-06] MEDS: apixaban 5 mg Tablet PO ×2 (05:41→18:23)
[2022-03-06] MEDS: levothyroxine 75 mcg Tablet PO (05:41)
[2022-03-06] MEDS: clopidogrel 75 mg Tablet PO (05:41)
[2022-03-06] MEDS: potassium chloride ER 20 mEq Tablet PO ×2 (08:24→18:23)
[2022-03-06] MEDS: tamsulosin 0.4 mg Capsule PO (08:24)
--- NOTE | 2022-03-06 08:35 | PM.PN ---
Subjective Subjective: Patient sitting up eating breakfast pain is controlled. Anticipate being discharged home or discharged to nursing care facility today Vitals/I&O/Wt Last Vital Signs Temp 98.1 F 03/06/22 04:38 Pulse 55 L 03/06/22 04:38 Resp 18 03/06/22 04:56 BP 120/66 03/06/22 04:38 Pulse Ox 97 03/06/22 00:01 O2 Del Method 03/06/22 04:38 03/05/22 03/06/22 03/06/22 22:59 06:59 14:59 Intake Total 540 / 1140 50 / 1190 Output Total 750 / 750 2000 / 2750 Balance -210 / 390 -1950 / -1560 Weight last 48 hrs Weight 197 lb Physical Exam Narrative: Dressing is dry. No drainage. Data : 03/06/22 01:55 03/06/22 01:55 Micro: Microbiology 03/04/22 18:15 Urine Culture - Final Urine,Clean Catch A&P Assessment and plan (1) S/P spinal fusion: Status post percutaneous spinal fusion. At this point patient is ready for discharge with his home with home health or to a nursing care facility. Status: Acute Attestations Medical Necessity Statement*: Okay to discharge Coding Level of Care Code Acute Infrastructure Manager for [facility] Diagnoses S/P spinal fusion Z98.1
--- NOTE | 2022-03-06 08:36 | PM.PN ---
Subjective Subjective: Jesus reports he is doing okay. Pain under control. He is hungry this morning. No shortness of breath currently. Custom Decorating Consultant was called early this morning, with slightly low blood pressure and orders to hold several of his medicines were given. Blood pressure currently much improved. He got a small bolus of IV fluids. Medications: Reviewed: Yes Vitals/I&O/Wt Last Vital Signs Temp 98.1 F 03/06/22 04:38 Pulse 55 L 03/06/22 04:38 Resp 18 03/06/22 04:56 BP 120/66 03/06/22 04:38 Pulse Ox 97 03/06/22 00:01 O2 Del Method 03/06/22 04:38 03/05/22 03/06/22 03/06/22 22:59 06:59 14:59 Intake Total 540 / 1140 50 / 1190 Output Total 750 / 750 2000 / 2750 Balance -210 / 390 -1950 / -1560 Weight last 48 hrs Weight 89.358 kg Physical Exam Narrative: White male no distress Neck is supple no lymphadenopathy thyromegaly Cardiovascular regular rate and rhythm with 2/6 systolic murmur Lungs diminished breath sounds. No crackles Abdomen is soft with positive bowel sounds. No obvious organomegaly. No pain exam [facility] Extremities trace edema Skin no rash Neuro no focal deficits Back demonstrates bandage covering surgical site. Data : 03/06/22 01:55 03/06/22 01:55 Micro: Microbiology 03/04/22 18:15 Urine Culture - Final Urine,Clean Catch A&P Assessment and plan (1) S/P spinal fusion: Post operative day number 4 . Readmitted 03/04 with increased pain. Pain currently under good control Continue physical therapy Discharge planning Status: Acute (2) Cardiomyopathy: Blood pressure was slightly low this morning as was heart rate. Reduce losartan to 50 mg daily Reduce metoprolol to 75 mg twice daily No other changes needed Status: Acute (3) Chronic kidney disease: Renal function currently stable Status: Acute (4) Atrial fibrillation: Heart rate controlled currently Continue Eliquis. Status: Acute (5) Anemia: Transfused 03/04. Had acute on chronic anemia, likely acute post operative blood loss. Hemoglobin appears stable Will need continued monitoring outpatient. No evidence of acute ongoing bleeding Status: Acute (6) Hypertension: Continue home meds. Status: Acute Plan Urinary retention. Discharged with [facility] last hospital stay. Flomax. Currently with [facility]. Will require urology follow-up. Other medical problems as listed in PMH Eliquis will suffice for DVT prophylaxis. Thank you for consultation. Attestations Medical Necessity Statement*: As per primary Coding Level of Care Code Acute Mold Repairer for [facility] Diagnoses S/P spinal fusion Z98.1 Cardiomyopathy I42.9 Chronic kidney disease N18.9 Atrial fibrillation I48.91 Anemia D64.9 Hypertension I10
--- NOTE | 2022-03-06 08:46 | PM.DCS ---
Discharge Providers Date of Admission: 03/04/22 08:41 Date of Discharge: March 06, 2022 Attending Provider at Admission: Juan Zhang DO Attending Provider at Discharge: Juan Zhang DO Primary Care Provider: Gene Peralta Diagnoses at Discharge Discharge Diagnosis (1) S/P spinal fusion: Status: Acute (2) Cardiomyopathy: Status: Acute Permanent problem details: History of ischemic cardiomyopathy, do not need revascularization, continue optimal medical regimen (3) Chronic kidney disease: Status: Acute (4) Atrial fibrillation: Status: Acute Permanent problem details: Rate control on anticoagulation (5) Anemia: Status: Acute (6) Hypertension: Status: Acute Permanent problem details: Well-controlled Reason for Visit Reason for Visit: Back pain from surgery Hospital Course Hospital Course Patient was readmitted for pain control at this point his pain is well controlled. His stay was uneventful. Discharge Data Studies Completed and Pending Completed Studies During Hospitalization Category Date Time Status XR chest 1V portable [id number] Stat Exams 03/04/22 08:36 Completed Radiology Impressions Chest X-Ray 03/04/22 08:36 IMPRESSION: 1. Cardiac enlargement. No change. 2. No acute infiltrate or other significant finding. Laboratory Results WBC 6.4 10^3/uL (4.0-10.0) 03/05/22 02:48 RBC 2.91 10^6/uL (4.1-5.3) L 03/05/22 02:48 Hgb 8.2 g/dL (11.7-16.6) L 03/06/22 01:55 Hct 26.4 % (42.0-52.0) L 03/06/22 01:55 MCV 94.2 fl (80-94) H 03/05/22 02:48 MCH 29.6 pg (28.0-34.0) 03/05/22 02:48 MCHC 31.4 g/dL (30.0-36.0) 03/05/22 02:48 RDW 17.7 % (12.1-15.1) H 03/05/22 02:48 Plt Count 193 10^3/cmm (130-400) 03/05/22 02:48 MPV 9.3 fL (7.4-10.4) 03/05/22 02:48 Neut % (Auto) 68.0 % 03/05/22 02:48 Lymph % (Auto) 15.0 % 03/05/22 02:48 [place] % (Auto) 13.1 % 03/05/22 02:48 Eos % (Auto) 3.1 % 03/05/22 02:48 Baso % (Auto) 0.5 % 03/05/22 02:48 Neut # (Auto) 4.37 10^3/uL (1.8-7.7) 03/05/22 02:48 Lymph # (Auto) 1.0 10^3/uL (0.8-4.8) 03/05/22 02:48 [place] # (Auto) 0.8 10^3/uL (0.2-0.9) 03/05/22 02:48 Eos # (Auto) 0.2 10^3/uL (0.0-0.8) 03/05/22 02:48 Baso # (Auto) 0.0 10^3/uL (0.0-0.1) 03/05/22 02:48 Nucleated RBC % (auto) 0 % 03/05/22 02:48 Nucleated RBCs # 0.0 /100WBC 03/05/22 02:48 Sodium 136 mmol/L (136-145) 03/06/22 01:55 Potassium 3.6 mmol/L (3.5-5.1) 03/06/22 01:55 Chloride 99 mmol/L (98-107) 03/06/22 01:55 Carbon Dioxide 28 mmol/L (22-29) 03/06/22 01:55 Anion Gap 12.6 (5-19) 03/06/22 01:55 BUN 22 mg/dL (8-23) 03/06/22 01:55 Creatinine 1.3 mg/dL (0.7-1.2) H 03/06/22 01:55 GFR Calculation Not Reportable 03/06/22 01:55 Glucose 100 mg/dL (65-115) 03/06/22 01:55 POC Glucose 109 mg/dL (70-110) 03/05/22 11:01 Calculated Osmolality 285 mOsm/kg (285-295) 03/06/22 01:55 Calcium 8.6 mg/dL (8.5-10.5) 03/06/22 01:55 Total Bilirubin 0.9 mg/dL (0.15-1.2) 03/04/22 09:15 AST 71 U/L (0-40) H 03/04/22 09:15 ALT 34 U/L (0-41) 03/04/22 09:15 Alkaline Phosphatase 124 U/L (40-130) 03/04/22 09:15 Total Protein 6.7 g/dL (6.6-8.7) 03/04/22 09:15 Albumin 3.4 g/dL (3.5-5.2) L 03/04/22 09:15 Globulin 3.3 g/dL (1.3-4.6) 03/04/22 09:15 Urine Color Yellow (Yellow) 03/04/22 18:15 Urine Appearance Clear (CLEAR) 03/04/22 18:15 Urine pH 6.5 (5-7) 03/04/22 18:15 Ur Specific [place] 1.000 (1.005-1.030) L 03/04/22 18:15 Urine Protein Neg (Negative) 03/04/22 18:15 Urine Glucose (UA) Norm (Normal) 03/04/22 18:15 Urine Ketones Negative (Negative) 03/04/22 18:15 Urine Blood 3+ (Negative) H 03/04/22 18:15 Urine Nitrate Negative (Negative) 03/04/22 18:15 Urine Bilirubin Neg (Negative) 03/04/22 18:15 Urine Urobilinogen Norm mg/dL (Negative) 03/04/22 18:15 Ur Leukocyte Esterase Negative (Negative) 03/04/22 18:15 Urine RBC 50-80 /hpf (0-2) H 03/04/22 18:15 Urine WBC 0-4 /hpf (0-5) H 03/04/22 18:15 Ur Squamous Epith Cells 0-4 /hpf (0-5) H 03/04/22 18:15 Amorphous Sediment Not Reportable 03/04/22 18:15 Urine Bacteria None /hpf (NONE) 03/04/22 18:15 Hep Bs Antigen Non-reactive (Nonreactive) 03/04/22 15:35 Hep Bs Antibody 3.5 (11.5-1000) L 03/04/22 15:35 Hepatitis C Antibody Non-reactive (Nonreactive) 03/04/22 15:35 HIV 1&2 Ab & HIV 1 Ag Non-reactive (Non-Reactiv) 03/04/22 15:35 HIV 1&2 Antibody Non-reactive (Non-Reactiv) 03/04/22 15:35 Vitals Last Vital Signs Temp 98.1 F 03/06/22 04:38 Pulse 55 L 03/06/22 04:38 Resp 18 03/06/22 04:56 BP 120/66 03/06/22 04:38 Pulse Ox 97 03/06/22 00:01 O2 Del Method 03/06/22 04:38 Discharge Plan Discharge Patient Disposition: Home Condition: Stable Prescriptions: New losartan 50 mg tablet 50 mg PO DAILY Qty: 30 0RF metoprolol tartrate 75 mg tablet 75 mg PO BID Qty: 60 0RF oxycodone 10 mg tablet 10 mg PO Q4H PRN (Reason: pain) 7 Days Qty: 40 0RF Continued acetaminophen [Tylenol Extra Strength] 500 mg tablet 500 mg PO Q6H PRN (Reason: Pain) (DME) Thumb Spica See Rx Instructions .Route .MEDSUPPLY Qty: 1 0RF Rx Instructions: As directed. (DME) Bone Growth Stimulator E0748 See Rx Instructions .Route .MEDSUPPLY Qty: 1 0RF Rx Instructions: As directed isosorbide mononitrate 30 mg tablet extended release 24 hr 30 mg PO QAM potassium chloride 20 mEq tablet,ER particles/crystals 20 meq PO BID nitroglycerin 0.4 mg tablet, sublingual 0.4 mg sublingual Q5MIN PRN (Reason: Chest Pain) rosuvastatin 40 mg tablet 40 mg PO BEDTIME Centrum Silver 400-250 mcg Tablet,Chewable 1 tab PO DAILY levothyroxine 75 mcg tablet 75 mcg PO QAM bumetanide 2 mg tablet 2 mg PO BID trazodone 50 mg tablet 50 mg PO BEDTIME PRN (Reason: Sleep) albuterol sulfate 90 mcg/actuation HFA aerosol inhaler 2 puff INHALATION Q6H PRN (Reason: Shortness Of Breath) clopidogrel 75 mg tablet 75 mg PO QAM amiodarone 100 mg tablet 100 mg PO QAM Eliquis 5 mg tablet 5 mg PO BID@07,19 Discontinued losartan 100 mg tablet 100 mg PO QAM hydrocodone-acetaminophen 5-325 mg Tablet 1 tab PO Q6H MDD 4 tabs PRN (Reason: Pain) hydrocodone-acetaminophen 5-325 mg Tablet 1 - 2 tab PO Q4H PRN (Reason: Moderate To Severe Pain) Qty: 30 0RF metoprolol tartrate 100 mg tablet 100 mg PO BID Discharge Orders: Discharge Order (Routine); Ordered 03/06/22 Ordered By: Juan Zhang Referrals: Frankie Floyd MD [Physician] - 2 weeks (follow up urinary retention. Discharged with catheter) Gene Peralta [Primary Care Provider] - 4-7 days (CBC on follo wup) Discharge Diet: Advance as tolerated Discharge Activity: Limit activity as instructed Patient Instructions: Opioid Safety Activity Restrictions/Additional Instructions: CBC on follow up in 3-5 days Take all meds as prescribed. Thank you for [facility] for your care! The following is a list of instructions, from your provider, to follow upon your discharge to ensure you have the optimal recovery from your recent injury orsurgery. Follow-up care is a graves part of your treatment and safety. Be sure to make and go to all appointments, and call your doctor if you are having problems. If you do not already have a follow-up appointment made, call Dr. Zhang office in the next 1-3 days to make follow up appointment for 1 weeks at [phone]. It is also a good idea to know your test results and keep a list of the medicines you take. Medications will be prescribed for you at your provider's discretion. These medications are to be used as instructed; if they are taken more often that prescribed they will not be refilled early and in most cases will not be refilled at all. > When a refill is needed,you should contact jef guerrero 2-3 business days before your prescription runs out. Medications will NOT be refilled by vocational teacher providers after hours! > Many pain medications contain Tylenol (Acetaminophen). Do not consume more than 4,000 mg of Tylenol per day in total with any combination ofmedications. > Pain medications can cause constipation. Please use an over the counter stool softener as directed, while taking pain medications. Consulty our local pharmacist with questions or recommendations on stool softeners. If constipation persists, contact our office or your primary care provider. > While under our care,you are not to receive pain medications or other controlled substances from any other provider unless our office is notified and approves. Any attempts to do so will result in refusal to prescribe any further pain medications and possible dismissal from our practice. ? Your wound and/or dressing should remain clean and dry for 2 days after surgery. On postoperative day 2 (48 hours after your surgery) the dressing (if present) should be removed and it is okay to shower and get the incision wet. Pad dry afterwards. No further dressing should be required from that point on. Do not put any creams or ointments on theincision > It is normal for there to be a small amount of discharge (bloody or blood tinged) present from a surgical wound for the first 1-3days. > The wound should be examined twice a day for signs of infection. Mild redness or bruising is to be expected but indications that an infection maybe starting would include; An increase in redness, swelling, or discharge, a foul odor present around the incision, and/or a fever greater than 101 ?F ? Showering is permitted, however we ask that you do not take a bath, sit in a whirlpool / Jacuzzi, or go swimming for 1 month. For only the first 2 days after surgery, lt wilt be necessary for you to cover your wound/dressing with plastic and tape to keep it dry. ? Walking is essential for the healing process after surgery. We would like you to slowly advance your walking. This should be done on relatively flat clear ground (inside or out) or can be done on a treadmill. Remember this goal does not have to happen all at once, slowly increase your distance and duration. This can be broken into more more than one walk per day as tolerated. Patients who walk as directed after surgery rarely require Physical Therapy. In the unlikely event this issue arises your provider will direct hospital staff to make the appropriate arrangements. ? No lifting over 5 pounds {a gallon of milk) or bending/twisting until further notice. Each of these activities places an unnecessary amount of stress onto the body and can impede the delicate healing process. > Instead of bending at the waist, keep your back straight and bend at the knees. > Instead of twisting your torso, keep your back straight and turn your entire body with your feet. ? You may sleep in any position which makes you comfortable. Many patients find comfort sleeping in a reclining chair. It is not abnormal to have difficulty sleeping for the first several weeks following your surgery. We recommend trying Benadry! or Tylenol PM as directed to help with your sleeping difficulties. Both medications are over the counter and available withoutprescription. ? NO SMOKING!!! Smoking dramatically increases the probability of developing postoperative wound infections. ? Common complaints after lumbar and/or thoracic spine surgery include, but are not limited to: numbness and/or tingling in the legs, pain around the incision and surrounding tissues, muscle spasms, or stiffness of the middle to low back. Contact our office if these symptoms persist or if an acute change occurs. ? No driving for the first 3-5days, and not while taking narcotics [] until seen at your follow-up appointment and cleared. There are no restrictions for riding on short trips, however if you take a longer trip, arrangements should be made to make regular stops to get out of the vehicle and stretch . ? Swelling is an unfortunate event that will take place with any surgery and is the primary source of your postoperative discomfort. While walking and regular approved activities helps control inflammation, there are additional steps you can take to minimizeswelling. > Place ice over the surgical site and surrounding tissue for twenty minutes, followed by applying a low/medium heat (heating pad) for an additional twenty minutes every 1-2 hours as needed for painrelief. > You may use of over the counter anti-inflammatory medications (Ibuprofen, Motrin, Aleve, Advil, etc) as directed on the package label. These types of medicines wm significantly reduce the amount of discomfort you experience after surgery from swelling. It should be noted that if you have and allergy to any of these medications, or a history of ulcers or kidney disease you should consult you primary care provider prior to starting these medications. Discharge Attestations Time Spent in Discharge Care*: less than 30 min Quality Metrics Clinical Quality Measures [ No reported AMI, CVA or VTE this stay] Coding Level of Care Code Acute Chg FW DC note Diagnoses S/P spinal fusion Z98.1 Cardiomyopathy I42.9 Chronic kidney disease N18.9 Atrial fibrillation I48.91 Anemia D64.9 Hypertension I10
--- NOTE | 2022-03-06 10:35 | PC.NURSE ---
pt noted to have hypotension (78/36) upon administering imdur and metoprolol. this nurse held off on administering medictions, notified Dr. Villarreal of change, orders received to hold medications. Dr. Villarreal gave orders to take another manual BP with patient laying supine, this reading was 102/48. Dr. Villarreal notified, no new orders received.
[2022-03-06 11:04] LABS: SARS Covid-2 Antigen Negative (Negative)
[2022-03-06] MEDS: bumetanide 1 mg Tablet 2 MG PO (18:23)
[2022-03-06] MEDS: trazodone 50 mg Tablet PO (21:28)
[2022-03-06] MEDS: atorvastatin 40 mg Tablet 80 MG PO (21:28)
[2022-03-06] MEDS: metoprolol tartrate 50 mg Tablet PO (21:28)
--- NOTE | 2022-03-06 21:48 | XRR_ITS ---
PROCEDURE INFORMATION: Exam: XR Chest Exam date and time: 03/06/2022 9:54 PM Age: 86 years old Clinical indication: Other: O2 desat TECHNIQUE: Imaging protocol: Radiologic exam of the chest. Views: 1 view. COMPARISON: CR XR chest 1V portable [id number] 03/04/2022 8:51 AM FINDINGS: Tubes, catheters and devices: Left-sided pacemaker. Lungs: Emphysematous changes. Bibasilar atelectasis versus minimal infiltrate. Pleural spaces: Unremarkable. No pleural effusion. No pneumothorax. Heart/Mediastinum: Unremarkable. No cardiomegaly. Bones/joints: Surgical hardware in the spine. Other findings: Equivocal air beneath the right hemidiaphragm, consider further evaluation with CT abdomen and pelvis as clinically indicated. XR/XR chest 1V portable [id number] IMPRESSION: 1. Equivocal air beneath the right hemidiaphragm, consider further evaluation with CT abdomen and pelvis as clinically indicated. 2. Emphysematous changes. 3. Bibasilar atelectasis versus minimal infiltrate. 4. Surgical hardware in the spine. 5. Left-sided pacemaker.
[2022-03-07] VITALS (9 sets, daily range): BP systolic 91–129; BP diastolic 43–61; PULSE 53–87; RESP 13–16; TEMP 36.7–36.9; O2SAT 91–94
[2022-03-07] MEDS: oxyCODONE 5 mg IR Tab/Cap 10 MG PO ×2 (01:57→08:18)
[2022-03-07 05:11] LABS: Basophils % 0.5 %; Eosinophils # 0.2 10^3/uL (0.0-0.8); Eosinophils % 3.8 %; Hematocrit 26.3 % (42.0-52.0); Hemoglobin 8.1 g/dL (11.7-16.6); Lymphocytes # 0.5 10^3/uL (0.8-4.8); Lymphocytes % 11.7 %; Mean Corpuscular HGB Conc 30.8 g/dL (30.0-36.0); Mean Corpuscular Hemoglobin 29.7 pg (28.0-34.0); Mean Corpuscular Volume 96.3 fl (80-94); Mean Platelet Volume 9.4 fL (7.4-10.4); Monocytes # 0.5 10^3/uL (0.2-0.9); Monocytes % 11.5 %; Neutrophils # 3.21 10^3/uL (1.8-7.7); Neutrophils % 72.3 %; Nucleated Red Blood Cells % 0 %; Platelet Count 186 10^3/cmm (130-400); Red Blood Count 2.73 10^6/uL (4.1-5.3); Red Cell Distribution Width 17.3 % (12.1-15.1); White Blood Count 4.4 10^3/uL (4.0-10.0)
[2022-03-07 05:35] LABS: Anion Gap 12.7 (5-19); Blood Urea Nitrogen 19 mg/dL (8-23); Calcium 8.5 mg/dL (8.5-10.5); Carbon Dioxide 26 mmol/L (22-29); Chloride 98 mmol/L (98-107); Glucose 96 mg/dL (65-115); Osmolality Calculated 278 mOsm/kg (285-295); Potassium 3.7 mmol/L (3.5-5.1); Sodium 133 mmol/L (136-145)
[2022-03-07] MEDS: apixaban 5 mg Tablet PO (05:59)
[2022-03-07] MEDS: levothyroxine 75 mcg Tablet PO (05:59)
[2022-03-07] MEDS: clopidogrel 75 mg Tablet PO (05:59)
[2022-03-07] MEDS: amiodarone 200 mg Tablet 100 MG PO (05:59)
[2022-03-07] MEDS: bumetanide 1 mg Tablet 2 MG PO (08:19)
[2022-03-07] MEDS: isosorbide mononitrate ER 30 mg Tablet PO (08:19)
[2022-03-07] MEDS: tamsulosin 0.4 mg Capsule PO (08:19)
[2022-03-07] MEDS: losartan 50 mg Tablet PO (08:19)
[2022-03-07] MEDS: docusate sodium 100 mg Capsule PO (08:19)
[2022-03-07] MEDS: potassium chloride ER 20 mEq Tablet PO (08:20)
[2022-03-07] MEDS: metoprolol tartrate 50 mg Tablet PO (08:24)
[2022-03-07] MEDS: diphenhydrAMINE 12.5 mg/5 mL UDC 10 mL PO (08:52)
--- NOTE | 2022-03-07 09:18 | PC.SOCIAL ---
Pg 2 IMM Explained to pt Pg 2 IMM. No questions voiced. Provided pt a copy. Initialed, dated, & timed a copy & placed in chart.
--- NOTE | 2022-03-07 12:09 | P.PN_ITS ---
Subjective Subjective: His back was sore after head of bed was too high, so he had to readjust his position with some pillows. Some itching from the dressing was helped by Benadryl. Vitals/I&O/Wt Last Vital Signs Temp 98.4 F 03/07/22 11:50 Pulse 53 L 03/07/22 11:50 Resp 16 03/07/22 11:50 BP 91/43 03/07/22 11:50 Pulse Ox 91 03/07/22 11:50 O2 Del Method 03/07/22 11:50 O2 Flow Rate 1.5 03/07/22 04:00 03/06/22 03/07/22 03/07/22 22:59 06:59 14:59 Intake Total 120 / 600 240 / 840 360 / 360 Output Total 1600 / 1600 500 / 2100 Balance -1480 / -1000 -260 / -1260 360 / 360 Physical Exam Narrative: Reclined in bed. Const: COMMON NORMALS: patient oriented x3 and alert GENERAL APPEARANCE: cooperative ORIENTATION/CONSCIOUSNESS: Yes awake HENMT: COMMON NORMALS: oropharynx normal Neck/C-Spine: COMMON NORMALS: no JVD Resp: COMMON NORMALS: normal respiratory effort and clear to auscultation bi laterally AUSCULTATION: clear to auscultation bilaterally Cardio: COMMON NORMALS: no JVD, regular rhythm, S1 normal heart sound present, S2 normal heart sound present and No murmurs present (Cardio) RHYTHM: regular rhythm HEART SOUNDS: S1 normal heart sound present and S2 normal heart sound present GI: COMMON NORMALS: Normal to inspection, nondistended, normoactive bowel sounds present, Soft to palpation and non-tender PALPATION: Yes Soft to palpation Back/Pelvis: OTHER: No surrounding erythema around dressing were visible. Extremity: COMMON NORMALS: no joint enlargement and no pedal edema Neuro: COMMON NORMALS: patient oriented x3 and moves all extremities SENSORIUM/ORIENTATION: Yes alert Skin: COMMON NORMALS: no rashes or lesions noted GENERAL SKIN EXAM: no rashes or lesions noted Data : 03/07/22 04:05 03/07/22 04:05 Micro: Microbiology 03/04/22 18:15 Urine Culture - Final Urine,Clean Catch A&P Assessment and plan (1) S/P spinal fusion: Post operative day number 4 . Readmitted 03/04 with increased pain. Pain currently under good control Continue physical therapy Discharge planning Status: Acute (2) Cardiomyopathy: Tolerating adjusted dose losartan and metoprolol, although still blood pressures on softer side 91/43, heart rate 53, for now losartan dose decreased to 25 mg daily, metoprolol down to 25 mg twice daily until blood pressures rebound more with decreasing pain medication requirement. Status: Acute (3) Chronic kidney disease: Renal function currently stable Status: Acute (4) Atrial fibrillation: Heart rate controlled currently Continue Eliquis. Status: Acute (5) Anemia: Transfused 03/04. Had acute on chronic anemia, likely acute post operative blood loss. Hemoglobin appears stable Reassess CBC outpatient. No evidence of acute ongoing bleeding Status: Acute (6) Hypertension: Medications as adjusted. Status: Acute Plan Urinary retention. Discharged with [facility] last hospital stay. Flomax. Currently with [facility]. Follow-up with urology. Other medical problems as listed in PMH Attestations Medical Necessity Statement*: Transitioning to SNF for rehabilitation. Coding Level of Care Code Acute [employer] Cast Supervisor for [facility] Fwd Exam Comprehensive Diagnoses S/P spinal fusion Z98.1 Cardiomyopathy I42.9 Chronic kidney disease N18.9 Atrial fibrillation I48.91 Anemia D64.9 Hypertension I10
== END 2022-03-07 13:52 | disposition skilled nursing facility (03) | DRG 948 ==
LOC: ER 08:32 → MEDSURG 08:56
PROVIDERS: Internal Medicine; Admitting Provider Orthopaedic Surgery; Emergency Provider Family Medicine; PCP Family Medicine; Visit Provider Orthopaedic Surgery
DX: G89.18 Other acute postprocedural pain (principal); I42.9 Cardiomyopathy, unspecified; I47.2 Ventricular tachycardia; Z98.1 Arthrodesis status; I25.2 Old myocardial infarction; I48.91 Unspecified atrial fibrillation; I12.9 Hypertensive chronic kidney disease with stage 1 through stage 4 chronic kidney disease, or unspecified chronic kidney disease; N18.9 Chronic kidney disease, unspecified; D63.1 Anemia in chronic kidney disease; I25.10 Atherosclerotic heart disease of native coronary artery without angina pectoris; Z95.5 Presence of coronary angioplasty implant and graft; E78.5 Hyperlipidemia, unspecified; R33.9 Retention of urine, unspecified; Z79.891 Long term (current) use of opiate analgesic; Z79.51 Long term (current) use of inhaled steroids; Z79.02 Long term (current) use of antithrombotics/antiplatelets; Z79.01 Long term (current) use of anticoagulants
CPT/HCPCS: 36415; 36416; 71045; 80048; 80053; 81001; 82962; 85014; 85018; 85025; 86706; 86803; 87086; 87340; 87426; 87806; 93005; 96374; 97116; 97161; 97530; 99285; J1940; J3010; J7050

== ENCOUNTER → 2022-03-17 10:37 | Outpatient (BNVA) | payer MEDICARE, OTHER, SELFPAY | PROVIDERS: PCP Family Medicine; Visit Provider Physician Assistant | DX: Z47.89 Encounter for other orthopedic aftercare (principal); Z98.1 Arthrodesis status | CPT/HCPCS: 72070; 99024 ==

== ENCOUNTER → 2022-03-18 15:22 | Outpatient (BNVA) | payer OTHER, MEDICARE, SELFPAY | PROVIDERS: PCP Family Medicine; Visit Provider Nurse Practitioner Family | DX: R33.9 Retention of urine, unspecified (principal) | CPT/HCPCS: 51798; 99203; 99213 ==

== ENCOUNTER 2022-03-23 13:02 | Emergency (ER) | payer MEDICARE, OTHER, SELFPAY ==
[2022-03-23 13:42] VITALS: BP 89/52; PULSE 63; RESP 16; TEMP 36.1; O2SAT 97
--- NOTE | 2022-03-23 15:44 | CTR_ITS ---
PROCEDURE INFORMATION: Exam: CT Abdomen And Pelvis Without Contrast Exam date and time: 03/23/2022 4:51 PM Age: 86 years old Clinical indication: Abdominal pain; Generalized; Prior surgery; Surgery date: <1 month; Surgery type: S/P lumbar spine surgery 3 weeks ago; Patient HX: Constipation, no bowel movements, bleeding post back surgery TECHNIQUE: Imaging protocol: Computed tomography of the abdomen and pelvis without contrast. Radiation optimization: All CT scans at this facility use at least one of these dose optimization techniques: automated exposure control; mA and/or kV adjustment per patient size (includes targeted exams where dose is matched to clinical indication); or iterative reconstruction. COMPARISON: CT chest abd pel w con* 02/21/2022 10:37 PM RADIATION DOSE METRICS: Total DLP (mGy-cm): 809.87 FINDINGS: Tubes, catheters and devices: Permanent pacemaker/AICD leads are noted in the right atrium and right ventricle. Diaphragm: There is a small hiatal hernia present. Liver: The liver is unremarkable in appearance. Gallbladder and bile ducts: Hyperdense appearance of the gallbladder. No gallstones are demonstrated. No gallbladder wall thickening. No biliary dilatation. Pancreas: The pancreas is normal in appearance. No pancreatic duct dilatation. Spleen: The spleen is normal in size and appearance. Adrenal glands: The adrenal glands appear within normal limits. Kidneys and ureters: Simple appearing renal cysts measuring up to 2.5 cm. No hydronephrosis. Normal ureters. Stomach and bowel: No acute gastric abnormality demonstrated. The small bowel is unremarkable as demonstrated. Diverticulosis of the colon. No evidence of acute diverticulitis. Appendix: No evidence of appendicitis. Intraperitoneal space: No pneumoperitoneum. No significant fluid collection. Vasculature: Atherosclerosis of the aorta. No abdominal aortic aneurysm. Lymph nodes: No pathologically enlarged lymph nodes are demonstrated. Urinary bladder: Unremarkable as visualized. Reproductive: Unremarkable as visualized. Bones/joints: Postop changes of the spine noted. No fracture or other acute osseous abnormality. Soft tissues: Unremarkable. CT/CT abdomen pelvis wo con [id number] IMPRESSION: 1. Diverticulosis of the colon. No evidence of acute diverticulitis. 2. No acute abnormality demonstrated in the abdomen and pelvis. 3. There is no interval change from the prior examination. COMMENTS: Consistent with the [employer] [place] [employer]'s Incidental Findings Committee white paper (J Am Jeremy Radiol 2018): Any incidental renal lesion less than 1 cm or classified as too small to characterize, or any incidental cystic renal lesion characterized as simple-appearing, is likely benign. No follow-up imaging is recommended for these lesions per consensus recommendations based on imaging criteria.
[2022-03-23 15:50] VITALS: BP 114/49; PULSE 69; RESP 18; O2SAT 99
--- NOTE | 2022-03-23 15:50 | ED_ITS ---
HPI - Abdominal Pain General: Chief Complaint: Abdominal Pain Stated Complaint: No bowel movement/bleeding post back surgery Time Seen by Provider: 03/23/22 15:44 Source: patient Mode of arrival: ambulatory Limitations: no limitations History of Present Illness: 86-year-old male states he had a lumbar surgery 2 weeks ago he states has been taking Percocet for his pain he states he not been on any stool softeners and has been constipated. He states not had a bowel movement last 2 weeks started to have some abdominal pain with nausea states he is got chronic hemorrhoids had some blood when he tries to go to the bathroom. Rates his pain a 4 out of 10 denies any worsening improving factors. Associated Symptoms: Reports constipation; Denies chills, dysuria and fever(s) Review of Systems Const: Denies: fever(s), chills, body aches or change in appetite Eyes: Denies: blurry vision or eye discomfort ENMT: Denies: throat pain or dental pain Card: Denies: chest pain Resp: Denies: dyspnea GI: Reports: abdominal pain and constipation : Denies: dysuria Musc: Denies: neck pain or back pain Skin/Breast: Denies: rash Neuro: Denies: headache(s) Psych: Denies: depression Lyle/Lymph: Denies: easy bruising All/Imm: Denies: urticaria PFSH ED PFSH: Medical History Acute MD Acute non-ST elevation myocardial infarction (NSTEMI) Anemia Atrial fibrillation Rate control on anticoagulation Chronic kidney disease Coronary artery disease Coronary artery disease Hyperlipidemia Hypertension Well-controlled Sustained VT (ventricular tachycardia) Continue current regimen including beta-ashley, amiodarone. Appear to be stable not in VT anymore. Can be discharged home. Ventricular tachycardia Surgical History Stented coronary artery Family History Mother No problems noted. Father No problems noted. Other CAD (coronary artery disease) Social History Smoking and tobacco status: never smoked Alcohol intake: never Adopted: No Caregiver/support person: Yes Housing: Snf Marital status: / Current occupational status: retired History of recent travel: No Physical Exam Const: COMMON NORMALS: no acute distress, patient oriented x3 and healthy appearing HENMT: COMMON NORMALS: normocephalic and atraumatic HEAD & SCALP: no rmocephalic and atraumatic Eye: COMMON NORMALS: Equal, round and reactive pupils present and EOMs intact bilaterally PUPIL: Yes Equal, round and reactive pupils present Neck/C-Spine: COMMON NORMALS: full ROM and supple Chest: COMMONS NORMALS: normal inspection of the chest and normal palpation of entire chest wall Resp: COMMON NORMALS: normal respiratory effort, No retractions, No use of accessory muscles and clear to auscultation bilaterally AUSCULTATION: clear to auscultation bilaterally Cardio: COMMON NORMALS: regular rate, regular rhythm and No murmurs present (Cardio) RATE: regular rate RHYTHM: regular rhythm GI: COMMON NORMALS: Normal to inspection, nondistended, normoactive bowel sounds present, Soft to palpation, non-tender and no masses PALPATION: Yes Soft to palpation OTHER: Rectal exam shows hemorrhoid with some slight bright red blood likely from the hemorrhoid no large amount of blood noted Extremity: COMMON NORMALS: normal to inspection and full ROM Neuro: COMMON NORMALS: patient oriented x3, moves all extremities and no focal motor deficits Psych: COMMON NORMALS: mental status grossly normal, Normal thought process present and cooperative THOUGHT PROCESS: Normal thought process present Skin: COMMON NORMALS: no rashes or lesions noted and no wounds GENERAL SKIN EXAM: no rashes or lesions noted Course Vital Signs: Vital signs: Vital Signs Temperature 97.0 F L 03/23/22 13:42 Pulse Rate 69 03/23/22 15:50 Respiratory Rate 18 03/23/22 15:50 Blood Pressure 114/49 03/23/22 15:50 Pulse Oximetry 99 03/23/22 15:50 Oxygen Delivery Me thod 03/23/22 15:50 MDM - Abdominal Pain Medical Decision Making Patient presents with constipation likely from his opioid use after his back pain we will place him on MiraLAX CT scan shows no signs of obstruction or large impaction. He does have a urinary tract infection as well. Amount of blood on rectal exam it was a small amount he has no signs of any major GI bleed this is likely from hemorrhoid if it does worsen he is to return we will treat him with antibiotics. Lab Data : 03/23/22 16:00 03/23/22 16:00 Labs/Radiology: Radiology Impressions Abdomen/Pelvis CT 03/23/22 15:44 IMPRESSION: 1. Diverticulosis of the colon. No evidence of acute diverticulitis. 2. No acute abnormality demonstrated in the abdomen and pelvis. 3. There is no interval change from the prior examination. COMMENTS: Consistent with the [employer]'s Incidental Findings Committee white paper (J Am Jeremy Radiol 2018): Any incidental renal lesion less than 1 cm or classified as too small to characterize, or any incidental cystic renal lesion characterized as simple-appearing, is likely benign. No follow-up imaging is recommended for these lesions per consensus recommendations based on imaging criteria. Laboratory Results WBC 6.2 10^3/uL (4.0-10.0) 03/23/22 16:00 RBC 2.99 10^6/uL (4.1-5.3) L 03/23/22 16:00 Hgb 8.6 g/dL (11.7-16.6) L 03/23/22 16:00 Hct 27.8 % (42.0-52.0) L 03/23/22 16:00 MCV 93.0 fl (80-94) 03/23/22 16:00 MCH 28.8 pg (28.0-34.0) 03/23/22 16:00 MCHC 30.9 g/dL (30.0-36.0) 03/23/22 16:00 RDW 16.8 % (12.1-15.1) H 03/23/22 16:00 Plt Count 425 10^3/cmm (130-400) H 03/23/22 16:00 MPV 8.8 fL (7.4-10.4) 03/23/22 16:00 Neut % (Auto) 66.7 % 03/23/22 16:00 Lymph % (Auto) 17.9 % 03/23/22 16:00 [place] % (Auto) 12.2 % 03/23/22 16:00 Eos % (Auto) 1.8 % 03/23/22 16:00 Baso % (Auto) 0.6 % 03/23/22 16:00 Neut # (Auto) 4.16 10^3/uL (1.8-7.7) 03/23/22 16:00 Lymph # (Auto) 1.1 10^3/uL (0.8-4.8) 03/23/22 16:00 [place] # (Auto) 0.8 10^3/uL (0.2-0.9) 03/23/22 16:00 Eos # (Auto) 0.1 10^3/uL (0.0-0.8) 03/23/22 16:00 Baso # (Auto) 0.0 10^3/uL (0.0-0.1) 03/23/22 16:00 Nucleated RBC % (auto) 0 % 03/23/22 16:00 Nucleated RBCs # 0.0 /100WBC 03/23/22 16:00 Sodium 132 mmol/L (136-145) L 03/23/22 16:00 Potassium 4.7 mmol/L (3.5-5.1) 03/23/22 16:00 Chloride 97 mmol/L (98-107) L 03/23/22 16:00 Carbon Dioxide 21 mmol/L (22-29) L 03/23/22 16:00 Anion Gap 18.7 (5-19) 03/23/22 16:00 BUN 63 mg/dL (8-23) H 03/23/22 16:00 Creatinine 3.5 mg/dL (0.7-1.2) H 03/23/22 16:00 GFR Calculation Not Reportable 03/23/22 16:00 Glucose 98 mg/dL (65-115) 03/23/22 16:00 Calculated Osmolality 292 mOsm/kg (285-295) 03/23/22 16:00 Lactate 1.0 mmol/L (0.5-2.2) 03/23/22 16:00 Calcium 9.6 mg/dL (8.5-10.5) 03/23/22 16:00 Total Bilirubin 0.7 mg/dL (0.15-1.2) 03/23/22 16:00 AST 103 U/L (0-40) H 03/23/22 16:00 ALT 107 U/L (0-41) H 03/23/22 16:00 Alkaline Phosphatase 122 U/L (40-130) 03/23/22 16:00 Total Protein 7.4 g/dL (6.6-8.7) 03/23/22 16:00 Albumin 3.4 g/dL (3.5-5.2) L 03/23/22 16:00 Globulin 4.0 g/dL (1.3-4.6) 03/23/22 16:00 Lipase 67 U/L (13-60) H 03/23/22 16:00 Urine Color Yellow (Yellow) 03/23/22 15:55 Urine Appearance Cloudy (CLEAR) 03/23/22 15:55 Urine pH 5 (5-7) 03/23/22 15:55 Ur Specific [place] 1.010 (1.005-1.030) 03/23/22 15:55 Urine Protein Trace (Negative) 03/23/22 15:55 Urine Glucose (UA) Norm (Normal) 03/23/22 15:55 Urine Ketones 1+ (Negative) H 03/23/22 15:55 Urine Blood 2+ (Negative) H 03/23/22 15:55 Urine Nitrate Negative (Negative) 03/23/22 15:55 Urine Bilirubin Neg (Negative) 03/23/22 15:55 Urine Urobilinogen Norm mg/dL (Negative) 03/23/22 15:55 Ur Leukocyte Esterase 2+ (Negative) H 03/23/22 15:55 Urine RBC 0-4 /hpf (0-2) H 03/23/22 15:55 Urine WBC Too numerous to cnt /hpf (0-5) H 03/23/22 15:55 Ur Squamous Epith Cells 0-4 /hpf (0-5) H 03/23/22 15:55 Amorphous Sediment Not Reportable 03/23/22 15:55 Urine Bacteria 4+ /hpf (NONE) H 03/23/22 15:55 Discharge Plan Discharge Patient Disposition: Home Clinical Impression: Acute cystitis, Constipation Condition: Stable Prescriptions: New cephalexin 500 mg capsule 500 mg PO TID 7 Days Qty: 21 0RF Miralax 17 gram powder in packet 17 g PO DAILY PRN (Reason: constipation) Qty: 14 0RF No Action acetaminophen [Tylenol Extra Strength] 500 mg tablet 500 mg PO Q6H PRN (Reason: Pain) (DME) Thumb Spica See Rx Instructions .Route .MEDSUPPLY Qty: 1 0RF Rx Instructions: As directed. tamsulosin 0.4 mg capsule 0.4 mg PO DAILY Qty: 30 12RF (DME) Bone Growth Stimulator E0748 See Rx Instructions .Route .MEDSUPPLY Qty: 1 0RF Rx Instructions: As directed isosorbide mononitrate 30 mg tablet extended release 24 hr 30 mg PO QAM potassium chloride 20 mEq tablet,ER particles/crystals 20 meq PO BID nitroglycerin 0.4 mg tablet, sublingual 0.4 mg sublingual Q5MIN PRN (Reason: Chest Pain) rosuvastatin 40 mg tablet 40 mg PO BEDTIME Centrum Silver 400-250 mcg Tablet,Chewable 1 tab PO DAILY levothyroxine 75 mcg tablet 75 mcg PO QAM bumetanide 2 mg tablet 2 mg PO BID albuterol sulfate 90 mcg/actuation HFA aerosol inhaler 2 puff INHALATION Q6H PRN (Reason: Shortness Of Breath) clopidogrel 75 mg tablet 75 mg PO QAM amiodarone 100 mg tablet 100 mg PO QAM Eliquis 5 mg tablet 5 mg PO BID@ metoprolol tartrate 25 mg tablet 25 mg PO BID Qty: 60 0RF losartan 25 mg tablet 25 mg PO DAILY Qty: 90 0RF senna 8.6 mg Capsule 17.2 mg PO BID Discharge Orders: Discharge ED (Routine); Ordered 03/23/22 Ordered By: Stephanie Paz Referrals: Gene Peralta [Primary Care Provider] - Discharge Diet: Advance as tolerated Discharge Activity: Resume usual activity Patient Instructions: Constipation (ED), Urinary Tract Infection in Men (ED) Coding Level of Care Code ED Manager Group Home for Chg Fwd Exam Comprehensive
[2022-03-23 16:15] LABS: Basophils % 0.6 %; Eosinophils # 0.1 10^3/uL (0.0-0.8); Eosinophils % 1.8 %; Hematocrit 27.8 % (42.0-52.0); Hemoglobin 8.6 g/dL (11.7-16.6); Lymphocytes # 1.1 10^3/uL (0.8-4.8); Lymphocytes % 17.9 %; Mean Corpuscular HGB Conc 30.9 g/dL (30.0-36.0); Mean Corpuscular Hemoglobin 28.8 pg (28.0-34.0); Mean Platelet Volume 8.8 fL (7.4-10.4); Monocytes # 0.8 10^3/uL (0.2-0.9); Monocytes % 12.2 %; Neutrophils # 4.16 10^3/uL (1.8-7.7); Neutrophils % 66.7 %; Nucleated Red Blood Cells % 0 %; Platelet Count 425 10^3/cmm (130-400); Red Blood Count 2.99 10^6/uL (4.1-5.3); Red Cell Distribution Width 16.8 % (12.1-15.1); White Blood Count 6.2 10^3/uL (4.0-10.0)
[2022-03-23 16:40] LABS: Add Urine Culture? Yes; Add Urine Microscopic? YES; Bacteria Urine 4+ /hpf; Bilirubin Urine Neg (Negative); Blood Urine 2+ (Negative); Glucose Urine UA Norm (Normal); Ketones Urine 1+ (Negative); Leukocyte Esterase Urine 2+ (Negative); Nitrate Urine Negative (Negative); Protein Urine Trace (Negative); RBC Urine 0-4 /hpf (0-2); Squamous Epithelial Cell Urine 0-4 /hpf (0-5); Urine Appearance Cloudy (CLEAR); Urine Color Yellow (Yellow); Urobilinogen Urine Norm (Negative); WBC Urine TOO NUMEROUS TO CNT /hpf (0-5); pH Urine 5 (5-7)
[2022-03-23 16:42] LABS: Alanine Aminotransferase 107 U/L (0-41); Albumin Level 3.4 g/dL (3.5-5.2); Alkaline Phosphatase 122 U/L (40-130); Anion Gap 18.7 (5-19); Aspartate Amino Transferase 103 U/L (0-40); Blood Urea Nitrogen 63 mg/dL (8-23); Calcium 9.6 mg/dL (8.5-10.5); Carbon Dioxide 21 mmol/L (22-29); Chloride 97 mmol/L (98-107); Glucose 98 mg/dL (65-115); Lipase 67 U/L (13-60); Osmolality Calculated 292 mOsm/kg (285-295); Potassium 4.7 mmol/L (3.5-5.1); Sodium 132 mmol/L (136-145); Total Bilirubin 0.7 mg/dL (0.15-1.2); Total Protein 7.4 g/dL (6.6-8.7)
[2022-03-23] MEDS: cefTRIAXone 1,000 MG in sodium chloride 0.9% (plus) 50 ML 100 MG IV (17:05)
[2022-03-23 17:52] VITALS: BP 105/54; PULSE 74; RESP 17; O2SAT 100
== END 2022-03-23 18:12 | disposition home or self-care (01) ==
PROVIDERS: Emergency Provider Emergency Medicine; PCP Family Medicine
DX: N30.00 Acute cystitis without hematuria (principal); K59.00 Constipation, unspecified; Z79.01 Long term (current) use of anticoagulants; Z79.02 Long term (current) use of antithrombotics/antiplatelets; I25.2 Old myocardial infarction; I25.10 Atherosclerotic heart disease of native coronary artery without angina pectoris; E78.5 Hyperlipidemia, unspecified; I10 Essential (primary) hypertension
CPT/HCPCS: 74176; 80053; 81001; 83605; 83690; 85025; 87077; 87086; 87186; 96365; 99285; J0696

== ENCOUNTER 2022-03-24 18:27 | Emergency (ER) | payer MEDICARE, OTHER, SELFPAY ==
[2022-03-24] VITALS (10 sets, daily range): BP systolic 70–121; BP diastolic 40–61; PULSE 56–68; RESP 15–18; TEMP 36; O2SAT 96–99
--- NOTE | 2022-03-24 19:26 | ECG_ITS ---
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 Measurements Intervals [place] Rate: 62 P: 29 MD: 273 QRS: -4 QRSD: 130 T: -56 QT: 436 QTc: 446 Interpretive Statements SINUS RHYTHM WITH FIRST DEGREE AV BLOCK MODERATE INTRAVENTRICULAR CONDUCTION DELAY [110+ ms QRS DURATION] NONSPECIFIC ST & T-WAVE ABNORMALITY INTERPRETATION BASED ON A DEFAULT AGE OF 40 YEARS Compared to ECG 03/04/2022 08:46:54 First degree AV block now present Possible ischemia no longer present T-wave abnormality still present Baseline artifact, defective EKG Electronically Signed On 03-24-2022 20:46:48 CDT by Mike Gonzalez M.D. [id number] f
--- NOTE | 2022-03-24 19:28 | W.ED.GENADLT ---
HPI - General Adult General: Chief complaint: General Medical Stated complaint: SOB\Low Blood Pressure\Indigestion Time Seen by Provider: 03/24/22 19:19 History of Present Illness: 86-year-old male brought in with low blood pressure. Patient was seen here yesterday for some constipation and difficulty peeing. He was found to have a urinary tract infection and started on Keflex. Patient's family reports that yesterday has had a little bit of low blood pressure but this evening it was quite a bit worse. He received both doses of Bumex today of 2 mg and then amlodipine earlier just prior to arrival. He reports that he gets dizzy when he stands up. He denies any chest pain. Has some mild nausea. Patient has had an Ensure today and maybe a little bit other fluids. Associated symptoms: Reports malaise and nausea; Deny chest pain, headache(s), rash or palpitations Review of Systems Const: Reports: malaise; Denies: fever(s) or chills Eyes: Denies: change in vision or blurry vision ENMT: Denies: throat pain or ear or mastoid pain Card: Denies: chest pain or palpitations Resp: Denies: productive cough or wheezing GI: Reports: nausea and constipation; Denies: abdominal pain : Reports: other (Please see HPI) Musc: Denies: neck pain or back pain Skin/Breast: Denies: rash or pruritus Neuro: Reports: dizziness; Denies: headache(s) Psych: Denies: anxiety or depression PFSH ED PFSH: Medical History Acute LA Acute non-ST elevation myocardial infarction (NSTEMI) Anemia Atrial fibrillation Rate control on anticoagulation Chronic kidney disease Coronary artery disease Coronary artery disease Hyperlipidemia Hypertension Well-controlled Sustained VT (ventricular tachycardia) Continue current regimen including beta-ashley, amiodarone. Appear to be stable not in VT anymore. Can be discharged home. Ventricular tachycardia Surgical History Stented coronary artery Family History Mother No problems noted. Father No problems noted. Other CAD (coronary artery disease) Social History Smoking and tobacco status: never smoked Alcohol intake: never Adopted: No Caregiver/support person: Yes Housing: [facility]dc Marital status: / Current occupational status: retired History of recent travel: No Physical Exam Const: COMMON NORMALS: patient oriented x3 and alert Resp: COMMON NORMALS: normal respiratory effort and No use of accessory muscles EFFORT & INSPECTION: Yes able to speak in complete sentences Cardio: COMMON NORMALS: regular rate and regular rhythm RATE: regular rate RHYTHM: regular rhythm GI: COMMON NORMALS: Soft to palpation and non-tender PALPATION: Yes Soft to palpation Neuro: COMMON NORMALS: patient oriented x3 and no focal motor deficits SENSORIUM/ORIENTATION: Yes alert Psych: COMMON NORMALS: cooperative and speech normal SPEECH: Yes normal speech Skin: COMMON NORMALS: no rashes or lesions noted GENERAL SKIN EXAM: no rashes or lesions noted Course Vital Signs: Vital signs: Vital Signs Temperature 96.8 F L 03/24/22 19:15 Pulse Rate 66 03/24/22 22:23 Respiratory Rate 17 03/24/22 22:23 Blood Pressure 121/55 03/24/22 22:23 Pulse Oximetry 96 03/24/22 22:23 Oxygen Delivery Me thod 03/24/22 22:23 MDM - General Adult Medical Decision Making Patient is likely a little bit mildly hydrated with Bumex twice daily and has been urinating a significant amount per family. Patient has elevated troponin but is likely his baseline. Did discuss with on-call cardiology and with no chest pain or other symptoms felt that he can follow-up on outpatient basis. Patient is feeling a lot better following his IV fluids and will be discharged home Lab Data : 03/24/22 19:28 03/24/22 19: Laboratory Results WBC 6.1 10^3/uL (4.0-10.0) 03/24/22 19: RBC 2.89 10^6/uL (4.1-5.3) L 03/24/22 19: Hgb 8.3 g/dL (11.7-16.6) L 03/24/22 19: Hct 26.9 % (42.0-52.0) L 03/24/22 19: MCV 93.1 fl (80-94) 03/24/22 19: MCH 28.7 pg (28.0-34.0) 03/24/22: MCHC 30.9 g/dL (30.0-36.0) 03/24/22 RDW 16.9 % (12.1-15.1) H 03/24/22: Plt Count 394 10^3/cmm (130-400) 03/24/22: MPV 8.6 fL (7.4-10.4) 03/24/22: Neut % (Auto) 64.0 % 03/24/22: Lymph % (Auto) 19.9 % 03/24/22: [place] % (Auto) 13.0 % 03/24/22 Eos % (Auto) 2.1 % 03/24/22 Baso % (Auto) 0.7 % 03/24/22 Neut # (Auto) 3.88 10^3/uL (1.8-7.7) 03/24/22 Lymph # (Auto) 1.2 10^3/uL (0.8-4.8) 03/24/22 [place] # (Auto) 0.8 10^3/uL (0.2-0.9) 03/24/22 Eos # (Auto) 0.1 10^3/uL (0.0-0.8) 03/24/22 Baso # (Auto) 0.0 10^3/uL (0.0-0.1) 03/24/22 Nucleated RBC % (auto) 0 % 03/24/22 Nucleated RBCs # 0.0 /100WBC 03/24/22 Sodium 133 mmol/L (136-145) L 03/24/22: Potassium 4.5 mmol/L (3.5-5.1) 03/24/22 Chloride 98 mmol/L (98-107) 03/24/22: Carbon Dioxide 23 mmol/L (22-29) 03/24/22: Anion Gap 16.5 (5-19) 03/24/22: BUN 59 mg/dL (8-23) H 09/20/22 19:28 Creatinine 3.0 mg/dL (0.7-1.2) H 03/24/22 19:28 GFR Calculation Not Reportable 03/24/22 19:28 Glucose 122 mg/dL (65-115) H 03/24/22 19:28 Calculated Osmolality 294 mOsm/kg (285-295) 03/24/22 19:28 Calcium 9.1 mg/dL (8.5-10.5) 03/24/22 19:28 Magnesium 2.5 mg/dL (1.7-2.3) H 03/24/22 19:28 Total Bilirubin 0.5 mg/dL (0.15-1.2) 03/24/22 19:28 AST 105 U/L (0-40) H 03/24/22 19:28 ALT 112 U/L (0-41) H 03/24/22 19:28 Alkaline Phosphatase 116 U/L (40-130) 03/24/22 19:28 Troponin T Gen 5 ng/L 83 ng/L (0-15) H 03/24/22 19:28 Troponin T 120 Minute 73.43 ng/L (0-15) H 03/24/22 21:37 Delta Troponin T -9.57 ABS# (0-10) L 03/24/22 21:37 Total Protein 6.8 g/dL (6.6-8.7) 03/24/22 19:28 Albumin 2.9 g/dL (3.5-5.2) L 03/24/22 19:28 Globulin 3.9 g/dL (1.3-4.6) 03/24/22 19:28 EKG Data EKG 1: I personally reviewed and interpreted this EKG as follows: EKG interpretation date: 03/24/22 EKG interpretation time: 19:26 Interpretation: sinus hr 65. pr 273, qrs 130, qtc 442, 1st degree block Discharge Plan Discharge Patient Disposition: Home Clinical Impression: Orthostatic hypotension, Dehydration, mild Condition: Stable Prescriptions: No Action acetaminophen [Tylenol Extra Strength] 500 mg tablet 500 mg PO Q6H PRN (Reason: Pain) (DME) Thumb Spica See Rx Instructions .Route .MEDSUPPLY Qty: 1 0RF Rx Instructions: As directed. tamsulosin 0.4 mg capsule 0.4 mg PO DAILY Qty: 30 12RF (DME) Bone Growth Stimulator E0748 See Rx Instructions .Route .MEDSUPPLY Qty: 1 0RF Rx Instructions: As directed isosorbide mononitrate 30 mg tablet extended release 24 hr 30 mg PO QAM potassium chloride 20 mEq tablet,ER particles/crystals 20 meq PO BID nitroglycerin 0.4 mg tablet, sublingual 0.4 mg sublingual Q5MIN PRN (Reason: Chest Pain) rosuvastatin 40 mg tablet 40 mg PO BEDTIME Centrum Silver 400-250 mcg Tablet,Chewable 1 tab PO DAILY levothyroxine 75 mcg tablet 75 mcg PO QAM bumetanide 2 mg tablet 2 mg PO BID albuterol sulfate 90 mcg/actuation HFA aerosol inhaler 2 puff INHALATION Q6H PRN (Reason: Shortness Of Breath) clopidogrel 75 mg tablet 75 mg PO QAM amiodarone 100 mg tablet 100 mg PO QAM Eliquis 5 mg tablet 5 mg PO BID@07,19 metoprolol tartrate 25 mg tablet 25 mg PO BID Qty: 60 0RF losartan 25 mg tablet 25 mg PO DAILY Qty: 90 0RF senna 8.6 mg Capsule 17.2 mg PO BID cephalexin 500 mg capsule 500 mg PO TID 7 Days Qty: 21 0RF Miralax 17 gram powder in packet 17 g PO DAILY PRN (Reason: constipation) Qty: 14 0RF ondansetron 4 mg tablet,disintegrating 4 mg PO Q6H PRN (Reason: nausea and vomiting) Qty: 14 0RF Discharge Orders: Discharge ED (Routine); Ordered 03/24/22 Ordered By: Ant Perry Referrals: Gene Peralta [Primary Care Provider] - Discharge Diet: Usual diet Discharge Activity: Resume usual activity Patient Instructions: Opioid Safety, Pain Management, Dehydration - Adult, Hypotension (ED) Activity Restrictions/Additional Instructions: Please call Dr. Gauthier office in the morning to arrange for outpatient follow-up Follow-up with your primary care provider to discuss your Bumex dosage and fluid intake Coding Level of Care Code ED Architectural Draftsman for Chg Fwd Exam Detailed
[2022-03-24] MEDS: lactated ringers 1,000 ML 999 ML IV (19:31)
[2022-03-24 19:38] LABS: Basophils % 0.7 %; Eosinophils # 0.1 10^3/uL (0.0-0.8); Eosinophils % 2.1 %; Hematocrit 26.9 % (42.0-52.0); Hemoglobin 8.3 g/dL (11.7-16.6); Lymphocytes # 1.2 10^3/uL (0.8-4.8); Lymphocytes % 19.9 %; Mean Corpuscular HGB Conc 30.9 g/dL (30.0-36.0); Mean Corpuscular Hemoglobin 28.7 pg (28.0-34.0); Mean Corpuscular Volume 93.1 fl (80-94); Mean Platelet Volume 8.6 fL (7.4-10.4); Monocytes # 0.8 10^3/uL (0.2-0.9); Neutrophils # 3.88 10^3/uL (1.8-7.7); Nucleated Red Blood Cells % 0 %; Platelet Count 394 10^3/cmm (130-400); Red Blood Count 2.89 10^6/uL (4.1-5.3); Red Cell Distribution Width 16.9 % (12.1-15.1); White Blood Count 6.1 10^3/uL (4.0-10.0)
[2022-03-24 19:58] LABS: Troponin T (5th) Once 83 ng/L (0-15)
[2022-03-24 19:59] LABS: Alanine Aminotransferase 112 U/L (0-41); Albumin Level 2.9 g/dL (3.5-5.2); Alkaline Phosphatase 116 U/L (40-130); Anion Gap 16.5 (5-19); Aspartate Amino Transferase 105 U/L (0-40); Blood Urea Nitrogen 59 mg/dL (8-23); Calcium 9.1 mg/dL (8.5-10.5); Carbon Dioxide 23 mmol/L (22-29); Chloride 98 mmol/L (98-107); Globulin 3.9 g/dL (1.3-4.6); Glucose 122 mg/dL (65-115); Magnesium 2.5 mg/dL (1.7-2.3); Osmolality Calculated 294 mOsm/kg (285-295); Potassium 4.5 mmol/L (3.5-5.1); Sodium 133 mmol/L (136-145); Total Bilirubin 0.5 mg/dL (0.15-1.2); Total Protein 6.8 g/dL (6.6-8.7)
--- NOTE | 2022-03-24 21:38 | ECG_ITS ---
[facility] Test Date: 2022-03-24 Pat Name: Jesus Saucedo Department: Room: Gender: Male Log Inspector: : 1935 Requested By: Ant Perry Order Number: [id number] Anders MD: Carrie Dalals M.D. Measurements Intervals [place] Rate: 63 P: 42 [place]: 300 QRS: -6 QRSD: 137 T: 52 QT: 451 QTc: 463 Interpretive Statements SINUS RHYTHM WITH FIRST DEGREE AV BLOCK INTRAVENTRICULAR CONDUCTION DELAY [130+ ms QRS DURATION] Compared to ECG 03/24/2022 19:26:42 T-wave abnormality no longer present Electronically Signed On 03-25-2022 20:32:11 CDT by Carrie Dallas M.D. [id number]
[2022-03-24 22:10] LABS: Troponin 5 2HR 73.43 ng/L (0-15)
== END 2022-03-24 23:13 | disposition home or self-care (01) ==
PROVIDERS: Emergency Provider Student in an Organized Health Care Education/Training Program; PCP Family Medicine
DX: I95.1 Orthostatic hypotension (principal); E86.0 Dehydration; N39.0 Urinary tract infection, site not specified; I25.2 Old myocardial infarction; I25.10 Atherosclerotic heart disease of native coronary artery without angina pectoris; I48.91 Unspecified atrial fibrillation; I44.0 Atrioventricular block, first degree; E78.5 Hyperlipidemia, unspecified; I10 Essential (primary) hypertension; D64.9 Anemia, unspecified; Z79.02 Long term (current) use of antithrombotics/antiplatelets; Z79.01 Long term (current) use of anticoagulants
CPT/HCPCS: 36415; 80053; 83735; 84484; 85025; 93005; 96360; 99284

== ENCOUNTER → 2022-03-25 12:48 | Outpatient (BNVA) | payer MEDICARE, OTHER, SELFPAY | PROVIDERS: PCP Family Medicine; Visit Provider Nurse Practitioner Family | DX: I95.1 Orthostatic hypotension (principal); Z95.810 Presence of automatic (implantable) cardiac defibrillator | CPT/HCPCS: 93282; 99213; 99214 ==

== ENCOUNTER 2022-04-03 10:33 | Inpatient (IN) | payer MEDICARE, OTHER, SELFPAY ==
[2022-04-03] VITALS (93 sets, daily range): BP systolic 94–193; BP diastolic 49–124; PULSE 59–150; RESP 10–37; TEMP 36.9; O2SAT 85–100; BMI 34.9
--- NOTE | 2022-04-03 10:37 | ECG_ITS ---
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 Measurements Intervals [place] Rate: 74 P: 26 [place]: 278 QRS: 2 QRSD: 130 T: 120 QT: 254 QTc: 282 Interpretive Statements SINUS RHYTHM WITH FIRST DEGREE AV BLOCK WITH OCCASIONAL ECTOPIC PREMATURE COMPLEXES MODERATE INTRAVENTRICULAR CONDUCTION DELAY [110+ ms QRS DURATION] NONSPECIFIC ST & T-WAVE ABNORMALITY Compared to ECG 03/24/2022 21:38:54 T-wave abnormality now present Electronically Signed On 04-03-2022 19:07:33 CDT by Mike Gonzalez M.D. [id number] f
--- NOTE | 2022-04-03 10:37 | ECG_ITS ---
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 Measurements Intervals [place] Rate: 74 P: 26 [place]: 278 QRS: 2 QRSD: 130 T: 120 QT: 254 QTc: 282 Interpretive Statements SINUS RHYTHM WITH FIRST DEGREE AV BLOCK WITH OCCASIONAL ECTOPIC PREMATURE COMPLEXES with aberrancy MODERATE INTRAVENTRICULAR CONDUCTION DELAY [110+ ms QRS DURATION] NONSPECIFIC ST & T-WAVE ABNORMALITY Compared to ECG 03/24/2022 21:38:54 T-wave abnormality now present Electronically Signed On 04-03-2022 19:12:03 CDT by Mike Gonzalez M.D. [id number] f
--- NOTE | 2022-04-03 10:44 | XR_ITS ---
WS: [id number] Exam: XR chest 1V portable [id number] Date/Time of Exam: 04/03/2022 10:58 AM Reason For Exam: dyspnea/cough Comparison 03/06/2022. The lungs are clear and fully inflated. Mild cardiac enlargement. The mediastinum is normal in contou r. Stephen rods are noted in the thoracic spine. A cardiac pacer superimposes the left chest. Bony structures are intact. XR/XR chest 1V portable [id number] IMPRESSION: 1. Mild cardiac enlargement. No acute process noted.
--- NOTE | 2022-04-03 10:44 | CTR_ITS ---
PROCEDURE INFORMATION: Exam: CT Head Without Contrast Exam date and time: 04/03/2022 11:48 AM Age: 86 years old Clinical indication: Injury or trauma; Fall; Abrasion; Head, generalized; Additional info: Fall, closed head injury TECHNIQUE: Imaging protocol: Computed tomography of the head without contrast. Radiation optimization: All CT scans at this facility use at least one of these dose optimization techniques: automated exposure control; mA and/or kV adjustment per patient size (includes targeted exams where dose is matched to clinical indication); or iterative reconstruction. COMPARISON: CT head wo con* [id number] 02/21/2022 10:28 PM RADIATION DOSE METRICS: Total DLP (mGy-cm): 844.08 FINDINGS: Brain: No hemorrhage, mass effect or midline shift. No acute, major vascular distribution infarction identified. There is foci of decreased attenuation in the periventricular and subcortical white matter, likely representing chronic small vessel ischemic changes. Mild cerebral volume loss is present. No intra-axial or extra-axial fluid collection seen. Cerebral ventricles: No ventriculomegaly. Paranasal sinuses: Visualized sinuses are unremarkable. No fluid levels. Mastoid air cells: Visualized mastoid air cells are well aerated. Orbital cavities: Bilateral lens replacement noted. Bones/joints: Unremarkable. No acute fracture. Soft tissues: Unremarkable. CT/CT head wo con* [id number] IMPRESSION: No acute intracranial abnormality.
[2022-04-03 11:00] LABS: Basophils % 0.6 %; Eosinophils # 0.3 10^3/uL (0.0-0.8); Hematocrit 27.5 % (42.0-52.0); Hemoglobin 8.7 g/dL (11.7-16.6); Lymphocytes # 1.5 10^3/uL (0.8-4.8); Mean Corpuscular HGB Conc 31.6 g/dL (30.0-36.0); Mean Corpuscular Hemoglobin 29.3 pg (28.0-34.0); Mean Corpuscular Volume 92.6 fl (80-94); Mean Platelet Volume 9.1 fL (7.4-10.4); Monocytes # 0.8 10^3/uL (0.2-0.9); Monocytes % 15.9 %; Neutrophils # 2.35 10^3/uL (1.8-7.7); Neutrophils % 47.3 %; Nucleated Red Blood Cells % 0 %; Platelet Count 252 10^3/cmm (130-400); Red Blood Count 2.97 10^6/uL (4.1-5.3); Red Cell Distribution Width 17.2 % (12.1-15.1)
[2022-04-03 11:14] LABS: Troponin(5th) Baseline 64 ng/L (0-15)
[2022-04-03 11:17] LABS: Alanine Aminotransferase 43 U/L (0-41); Alkaline Phosphatase 107 U/L (40-130); Aspartate Amino Transferase 33 U/L (0-40); Blood Urea Nitrogen 14 mg/dL (8-23); Calcium 9.1 mg/dL (8.5-10.5); Carbon Dioxide 21 mmol/L (22-29); Chloride 103 mmol/L (98-107); Globulin 3.7 g/dL (1.3-4.6); Glucose 113 mg/dL (65-115); Osmolality Calculated 279 mOsm/kg (285-295); Sodium 134 mmol/L (136-145); Total Bilirubin 0.4 mg/dL (0.15-1.2); Total Protein 6.7 g/dL (6.6-8.7)
--- NOTE | 2022-04-03 11:19 | ED_ITS ---
HPI - Weakness General: Chief complaint: Weakness Stated complaint: WEAKNESS/ DIZZINESS Time Seen by Provider: 04/03/22 10:36 Source: patient Mode of arrival: ambulatory Limitations: no limitations History of Present Illness: 86-year-old male presents emergency room planing weakness and dizziness. He is concerned he may have had problems with his pacer. He has been having this for quite some time he states several syncopal- like episodes. He has been seen Several times I have not really found anything significant or reversible. He denies any chest pain. No recent medication changes. Patient several abrasions on the frontal area of his scalp he does not recall getting these. He is on anticoagulation. MD Complaint: generalized weakness Onset (ago): hour(s) Duration: intermittent Migration: none Quality: tingling and numbness Relieving factors: none Exacerbating factors: none Associated symptoms: Denies chest pain, chills, confusion, melena, decreased appetite, diaphoresis, dysuria, easy bruising, fever(s), headache(s), myalgias, nausea, rash, short of breath, syncope or vomiting Review of Systems Const: Denies: fever(s), chills or diaphoresis Card: Denies: chest pain or syncope GI: Denies: nausea, vomiting or melena : Denies: dysuria Neuro: Denies: headache(s) or confusion Lyle/Lymph: Denies: easy bruising PFSH ED PFSH: Medical History Acute [place] Acute non-ST elevation myocardial infarction (NSTEMI) Anemia Atrial fibrillation Rate control on anticoagulation Chronic kidney disease Coronary artery disease Coronary artery disease Hyperlipidemia Hypertension Well-controlled Sustained VT (ventricular tachycardia) Continue current regimen including beta-ashley, amiodarone. Appear to be stable not in VT anymore. Can be discharged home. Ventricular tachycardia Surgical History History of back surgery History of cardiac defibrillator placement Stented coronary artery Family History Mother No problems noted. Father No problems noted. Other CAD (coronary artery disease) Social History Smoking and tobacco status: never smoked Alcohol intake: never Adopted: No Caregiver/support person: Yes Housing: Detention Marital status: / Current occupational status: retired History of recent travel: No Physical Exam Const: GENERAL APPEARANCE: cooperative and comfortable ORIENTATION/CONSCIOUSNESS: Yes awake, Yes oriented to person, Yes oriented to place and Yes oriented to time HENMT: COMMON NORMALS: normocephalic and hearing grossly normal bilaterally HEAD & SCALP: normocephalic Resp: COMMON NORMALS: normal respiratory effort, No retractions, No use of accessory muscles and clear to auscultation bilaterally AUSCULTATION: clear to auscultation bilaterally Cardio: COMMON NORMALS: regular rate, regular rhythm and No murmurs present ( Cardio) RATE: regular rate RHYTHM: regular rhythm GI: COMMON NORMALS: Soft to palpation and No hepatosplenomegaly present AUSCULTATION: Yes normoactive bowel sounds PALPATION: Yes Soft to palpation, No Tenderness to palpation present (GI), No Guarding due to palpation present (GI) and Yes No hepatosplenomegaly present Extremity: COMMON NORMALS: normal to inspection, capillary refill normal, no clubbing, cyanosis or edema, no calf tenderness and no pedal edema Neuro: SENSORIUM/ORIENTATION: Yes oriented to person, Yes oriented to place and Yes oriented to time Skin: COMMON NORMALS: no rashes or lesions noted GENERAL SKIN EXAM: no rashes or lesions noted Course Vital Signs: Vital signs: Vital Signs Temperature 98.3 F 04/06/22 15:59 Pulse Rate 58 L 04/06/22 15:59 Respiratory Rate 16 04/06/22 15:59 Blood Pressure 105/58 04/06/22 15:59 Pulse Oximetry 97 04/06/22 15:59 Oxygen Delivery Me thod 04/06/22 12:00 MDM - Weakness Medical Decision Making 86-year-old male who we monitor for about 3 and half hours got serial troponins were trended negative. We reviewed his medication list he had recently started [place] and based on his history of this episode happening right as he tried to stand up out of bed and thought he was having orthostatic hypotension. He has known cardiomyopathy. Given his recent initiation of this medicine and the symptoms without the tumor-associated. However as we are preparing to discharge him he went into nonsustained V. tach that self terminated. He was relatively asymptomatic of it but did at 3 times in succession there was no discharge from his ICD. We will admit start amiodarone drip interrogate his ICD discussed with hospitalist and cardiology Medical Records I reviewed the patient's medical records. Lab Data I reviewed the patient's lab results. : 04/06/22 01:39 04/06/22 01:39 Radiology Impressions Chest X-Ray 04/03/22 10:44 IMPRESSION: 1. Mild cardiac enlargement. No acute process noted. Head CT 04/03/22 10:44 IMPRESSION: No acute intracranial abnormality. Laboratory Results WBC 5.0 10^3/uL (4.0-10.0) 04/03/22 10:39 RBC 2.97 10^6/uL (4.1-5.3) L 04/03/22 10:39 Hgb 8.7 g/dL (11.7-16.6) L 04/03/22 10:39 Hct 27.5 % (42.0-52.0) L 04/03/22 10:39 MCV 92.6 fl (80-94) 04/03/22 10:39 MCH 29.3 pg (28.0-34.0) 04/03/22 10:39 MCHC 31.6 g/dL (30.0-36.0) 04/03/22 10:39 RDW 17.2 % (12.1-15.1) H 04/03/22 10:39 Plt Count 252 10^3/cmm (130-400) 04/03/22 10:39 MPV 9.1 fL (7.4-10.4) 04/03/22 10:39 Neut % (Auto) 47.3 % 04/03/22 10:39 Lymph % (Auto) 30.0 % 04/03/22 10:39 [place] % (Auto) 15.9 % 04/03/22 10:39 Eos % (Auto) 6.0 % 04/03/22 10:39 Baso % (Auto) 0.6 % 04/03/22 10:39 Neut # (Auto) 2.35 10^3/uL (1.8-7.7) 04/03/22 10:39 Lymph # (Auto) 1.5 10^3/uL (0.8-4.8) 04/03/22 10:39 [place] # (Auto) 0.8 10^3/uL (0.2-0.9) 04/03/22 10:39 Eos # (Auto) 0.3 10^3/uL (0.0-0.8) 04/03/22 10:39 Baso # (Auto) 0.0 10^3/uL (0.0-0.1) 04/03/22 10:39 Nucleated RBC % (auto) 0 % 04/03/22 10:39 Nucleated RBCs # 0.0 /100WBC 04/03/22 10:39 Sodium 134 mmol/L (136-145) L 04/03/22 10:39 Potassium 3.3 mmol/L (3.5-5.1) L 04/03/22 10:39 Chloride 103 mmol/L (98-107) 04/03/22 10:39 Carbon Dioxide 21 mmol/L (22-29) L 04/03/22 10:39 Anion Gap 13.3 (5-19) 04/03/22 10:39 BUN 14 mg/dL (8-23) 04/03/22 10:39 Creatinine 1.5 mg/dL (0.7-1.2) H 04/03/22 10:39 GFR Calculation Not Reportable 04/03/22 10:39 Glucose 113 mg/dL (65-115) 04/03/22 10:39 Calculated Osmolality 279 mOsm/kg (285-295) L 04/03/22 10:39 Calcium 9.1 mg/dL (8.5-10.5) 04/03/22 10:39 Magnesium 2.1 mg/dL (1.7-2.3) 04/03/22 10:39 Total Bilirubin 0.4 mg/dL (0.15-1.2) 04/03/22 10:39 AST 33 U/L (0-40) 04/03/22 10:39 ALT 43 U/L (0-41) H 04/03/22 10:39 Alkaline Phosphatase 107 U/L (40-130) 04/03/22 10:39 Troponin T Baseline 64 ng/L (0-15) H 04/03/22 10:39 Troponin T 120 Minute 51.59 ng/L (0-15) H 04/03/22 12:46 Delta Troponin T -12.41 ABS# (0-10) L 04/03/22 12:46 Total Protein 6.7 g/dL (6.6-8.7) 04/03/22 10:39 Albumin 3.0 g/dL (3.5-5.2) L 04/03/22 10:39 Globulin 3.7 g/dL (1.3-4.6) 04/03/22 10:39 TSH 1.80 uIU/mL (0.27-4.20) 04/03/22 10:39 Discharge Plan Discharge Patient Disposition: Admitted As Inpatient Admit Provider: Yossi Austin Clinical Impression: Non-sustained ventricular tachycardia, Coronary artery disease, Cardiomyopathy, Atrial fibrillation, Status post implantation of automatic cardioverter/defibrillator (AICD), Chronic kidney disease, Anemia, Hypertension Condition: Stable Discharge Diet: Cardiac Discharge Activity: Increase activity as tolerated Coding Level of Care Code ED Onboarding Specialist for Chg Fwd Exam Detailed
[2022-04-03 11:21] LABS: Anion Gap 13.3 (5-19)
[2022-04-03 11:22] LABS: Potassium 3.3 mmol/L (3.5-5.1)
--- NOTE | 2022-04-03 12:56 | ECG_ITS ---
[facility] Test Date: 2022-04-03 Pat Name: Jesus Saucedo Department: Room: Gender: Male Yarn Sizer: : 1935 Requested By: Jayant Leavitt Order Number: [id number] Anders MD: Mike Gonzalez M.D. Measurements Intervals [place] Rate: 68 P: -34 TX: 210 QRS: -10 QRSD: 138 T: -26 QT: 446 QTc: 476 Interpretive Statements SINUS RHYTHM WITH FIRST DEGREE AV BLOCK INTRAVENTRICULAR CONDUCTION DELAY [130+ ms QRS DURATION] Compared to ECG 03/24/2022 21:38:54 No significant changes Electronically Signed On 04-03-2022 19:12:46 CDT by Mike Gonzalez M.D. [id number]
[2022-04-03 13:09] LABS: Troponin 5 2HR 51.59 ng/L (0-15)
[2022-04-03 13:11] LABS: Troponin 5 2HR Delta -12.41 ABS# (0-10)
--- NOTE | 2022-04-03 14:09 | PC.NURSE ---
notified that bedside monitoring and evaluation advisor shows intermittent V-Fib. pt states he doesn't feel any pain but feels intermittent dizziness. Physician aware, new orders placed. Pt placed on ZOLL monitor.
[2022-04-03] MEDS: potassium chloride oral liq 20 mEq/15 mL UDC 40 MEQ PO (15:22)
--- NOTE | 2022-04-03 15:30 | P.HP_ITS ---
Providers/Chief Complaint Primary Care Provider: Gene Peralta Chief Complaint: WEAKNESS/ DIZZINESS History of Present Illness Pleasant 86-year-old gentleman with history of CAD, coronary stenting most recently in April 2021, cardiomyopathy, EF 40-45%, ventricular tachycardia, atrial fibrillation, status post PPM, ICD, HTN, HLD, chronic back pain, BPH, CKD, recent KARL, recent orthostatic symptoms, Flomax was switched to terazosin r ecently, dementia dose was decreased, due to orthostasis losartan was held, metoprolol dose decreased from 25 mg daily to 12.5 mg daily, continues on amiodarone 100 mg daily. Recently with symptoms of orthostasis, dizzy episodes, episodes of hot flashes and sweats . This morning syncopal episode during which he fell to the floor. In ER CT of the head unremarkable. Since falling he had some tenderness in the left side chest wall. Chest x-ray mild cardiac enlargement no acute process noted. Troponin 64, 2-hour troponin 51.6. Potassium 3.3. Creatinine 1.5. EKG sinus rhythm, intraventricular conduction delay. Multiple episodes of ventricular tachycardia, atrial fibrillation in ER. In ER longest episode appears to be about 50 seconds in duration. ICD device is functioning on interrogation delivering overdrive pacing during episodes, this morning corresponding to roughly around when he had syncopal episode appears to have also had defibrillation. He is started on amiodarone drip and cardiology is consulted. In terms of CODE STATUS he would want attempted CPR/resuscitation, would not want indefinite continuous life support. Review of Systems Const: Reports: diaphoresis; Denies: fever(s), chills, body aches or malaise Eyes: Denies: change in vision, eye discomfort or eye redness ENMT: Denies: throat pain, oral sores or ear or mastoid pain Card: Reports: lightheadedness, syncope and pre-syncope; Denies: chest pain, edema or dyspnea on exertion Resp: Denies: dyspnea, productive cough, change in phlegm color or hemoptysis GI: Denies: abdominal pain, nausea, vomiting, diarrhea, constipation, hematochezia or melena : Denies: flank pain, difficulty urinating, urinary frequency or hematuria Musc: Denies: back pain, joint swelling or joint redness Skin/Breast: Denies: rash or new lesions Neuro: Reports: dizziness; Denies: headache(s), numbness in extremities, weakness in extremities, confusion or seizure-like activity Endo: Denies: polyuria or polydipsia Lyle/Lymph: Denies: easy bleeding or tender lymph nodes All/Imm: Denies: urticaria or tongue swelling Medications/Allergies Home Medications Medication Instructions Recorded Confirmed Last Taken Type isosorbide mononitrate 30 mg 30 mg PO QAM 04/12/21 04/03/22 04/03/22 History tablet,extended release 24 hr nitroglycerin 0.4 mg sublingual 0.4 mg sublingual Q5MIN PRN Chest 04/12/21 04/03/22 Unknown History tablet Pain potassium chloride 20 mEq 20 meq PO BID 04/12/21 04/03/22 04/03/22 History tablet,extended release(part/cryst) rosuvastatin 40 mg tablet 40 mg PO BEDTIME 04/12/21 04/03/22 04/02/22 History multivit with min-folic 1 tab PO DAILY 04/25/21 04/03/22 04/03/22 History acid-lutein 400 mcg-250 mcg chewable tablet (Centrum Silver) acetaminophen 500 mg tablet 500 mg PO Q6H PRN Pain 05/21/21 04/03/22 03/01/22 History (Tylenol Extra Strength) Thumb Spica #1 ea 02/26/22 04/03/22 Unknown Rx Bone Growth Stimulator E0748 #1 ea 03/02/22 04/03/22 Unknown Rx levothyroxine 75 mcg tablet 75 mcg PO QAM 03/02/22 04/03/22 04/03/22 History albuterol sulfate 90 mcg/actuation 2 puff inhalation Q6H PRN 03/04/22 04/03/22 Unknown History aerosol inhaler Shortness Of Breath amiodarone 100 mg tablet 100 mg PO QAM 03/04/22 04/03/22 04/03/22 History apixaban 5 mg tablet (Eliquis) 5 mg PO BID@07,03/04/22 04/03/22 03/22/22 History clopidogrel 75 mg tablet 75 mg PO QAM 03/04/22 04/03/22 04/03/22 History sennosides 8.6 mg capsule (senna) 17.2 mg PO BID 03/23/22 04/03/22 04/03/22 History bumetanide 2 mg tablet 2 mg PO DAILY 03/25/22 04/03/22 04/03/22 History metoprolol tartrate 25 mg tablet 12.5 mg PO BID #60 tabs 03/25/22 04/03/22 04/03/22 Rx Allergies Allergy/AdvReac Type Severity Reaction Status Date / Time JACKIE Inhibitors Allergy Unknown Unknown Verified 04/03/22 12:26 aspirin Allergy ALGY-Hives Verified 04/03/22 12:26 Latex, Natural Rubber Allergy ALGY-Rash Verified 04/03/22 12:26 PFSH Acute PFSH: Medical History (Updated 04/03/22 @ 15:48 by Yossi Austin MD) Acute [place] Acute non-ST elevation myocardial infarction (NSTEMI) Anemia Atrial fibrillation Rate control on anticoagulation Chronic kidney disease Coronary artery disease Coronary artery disease Hyperlipidemia Hypertension Well-controlled Sustained VT (ventricular tachycardia) Continue current regimen including beta-ashley, amiodarone. Appear to be stable not in VT anymore. Can be discharged home. Ventricular tachycardia Surgical History (Updated 04/03/22 @ 15:48 by Yossi Austin MD) History of back surgery History of cardiac defibrillator placement Stented coronary artery Family History Mother No problems noted. Father No problems noted. Other CAD (coronary artery disease) Social History Smoking and tobacco status: never smoked Alcohol intake: never Adopted: No Caregiver/support person: Yes Housing: [facility] Marital status: / Current occupational status: retired History of recent travel: No Vitals/I&O/Wt Last Vital Signs Temp 98.4 F 04/03/22 10:35 Pulse 86 04/03/22 14:10 Resp 22 H 04/03/22 14:10 BP 107/50 04/03/22 14:10 Pulse Ox 91 04/03/22 14:10 O2 Del Method 04/03/22 10:35 Weight last 48 hrs Weight 83.915 kg Physical Exam Narrative: Family at bedside Const: COMMON NORMALS: patient oriented x3 and alert GENERAL APPEARANCE: cooperative ORIENTATION/CONSCIOUSNESS: Yes awake HENMT: COMMON NORMALS: oropharynx normal OTHER: Mild abrasions on right frontal and coronal scalp Neck/C-Spine: COMMON NORMALS: no JVD Chest: OTHER: Left side chest ICD appears unremarkable Resp: COMMON NORMALS: normal respiratory effort and clear to auscultation bilaterally AUSCULTATION: clear to auscultation bilaterally Cardio: COMMON NORMALS: no JVD, regular rhythm, S1 normal heart sound present, S2 normal heart sound present and No murmurs present (Cardio) RATE: tachycardic RHYTHM: abnormal rhythm HEART SOUNDS: S1 normal heart sound present and S2 normal heart sound present GI: COMMON NORMALS: Normal to inspection, nondistended, normoactive bowel sounds present, Soft to palpation and non-tender PALPATION: Yes Soft to palpation Extremity: COMMON NORMALS: no joint enlargement and no pedal edema Neuro: COMMON NORMALS: patient oriented x3 and moves all extremities SENSORIUM/ORIENTATION: Yes alert Skin: COMMON NORMALS: no rashes or lesions noted GENERAL SKIN EXAM: no rashes or lesions noted Data : 04/03/22 10:39 04/03/22 10:39 A&P Assessment and plan (1) Ventricular tachycardia: Ventricular tachycardia, atrial fibrillation episodes. Most nonsustained. Has required overdrive pacing, and this morning around 930 around the time he had syncopal episode defibrillation. Continue amiodarone. Replace potassium. Check museum. Complete troponin EKG series. He denies any chest pain. He is going to ICU. Cardiology consultation has been requested. Resume metoprolol 25 mg twice daily. Check TSH (2) Syncope: Secondary to the above. Recently has been having some orthostatic like symptoms, unclear at this point whether orthostasis is contributing or whether it is due to entirely rounds of ventricular arrhythmia. (3) Chronic kidney disease: Recently KARL, creatinine improved down to 1.5. Losartan was held. Bumex dose was decreased. His metoprolol recently was decreased from 25 mg twice daily to 12.5 mg twice daily due to orthostatic symptoms. Plan Hypothyroidism: Check TSH Mild abrasion on scalp after fall Chronic back pain Recent back surgery Anemia Atrial fibrillation CAD status post stenting HTN HLD Other chronic morbidities noted Attestations Medical Necessity Statement*: Admission of over 2 midnights is anticipated for assessment of management of recurrent episodes of ventricular tachycardia, fibrillation, both nonsustained and sustained Coding Level of Care Code Acute Steel Division Supervisor for Chg Fwd Diagnoses Ventricular tachycardia I47.2 Syncope R55 Chronic kidney disease N18.9
[2022-04-03 15:48] LABS: Magnesium 2.1 mg/dL (1.7-2.3)
--- NOTE | 2022-04-03 16:16 | PC.NURSE ---
report called to [facility]AO Mera
--- NOTE | 2022-04-03 17:13 | P.CONIM_ITS ---
Providers/Reason For Consult Consulting Physician/Specialty*: Ayaan Sen MD/ Cardiology Reason for Consult*: Syncope/ ventricular tachycardia Requesting Physician: Dr Austin Attending Physician: Yossi Austin Primary Care Provider: Gene Peralta History of Present Illness History of Present Illness Jesus Saucedo is a 86 year old male with past medical history of CAD with PCI of RCA and LAD in 2020, cardiomyopathy with EF of 40%, ventricular tachycardia, atrial fibrillation, hypertension and hyperlipidemia who presented to the hospital after feeling weak and dizzy. He had syncopal episode earlier in the day. ICD interrogation showed appropriate overdrive pacing however no shocks. Patient's amiodarone dose was recently reduced to 200 mg daily Review of Systems Const: Reports: diaphoresis; Denies: fever(s), chills, body aches or malaise Eyes: Denies: change in vision, eye discomfort or eye redness ENMT: Denies: throat pain, oral sores or ear or mastoid pain Card: Reports: lightheadedness, syncope and pre-syncope; Denies: chest pain, edema or dyspnea on exertion Resp: Denies: dyspnea, productive cough, change in phlegm color or hemoptysis GI: Denies: abdominal pain, nausea, vomiting, diarrhea, constipation, hematochezia or melena : Denies: flank pain, difficulty urinating, urinary frequency or hematuria Musc: Denies: back pain, joint swelling or joint redness Skin/Breast: Denies: rash or new lesions Neuro: Reports: dizziness; Denies: headache(s), numbness in extremities, weakness in extremities, confusion or seizure-like activity Endo: Denies: polyuria or polydipsia Lyle/Lymph: Denies: easy bleeding or tender lymph nodes All/Imm: Denies: urticaria or tongue swelling Medications/Allergies Home Medications Medication Instructions Recorded Confirmed Last Taken Type isosorbide mononitrate 30 mg 30 mg PO QAM 04/12/21 04/03/22 04/03/22 History tablet,extended release 24 hr nitroglycerin 0.4 mg sublingual 0.4 mg sublingual Q5MIN PRN Chest 04/12/21 04/03/22 Unknown History tablet Pain potassium chloride 20 mEq 20 meq PO BID 04/12/21 04/03/22 04/03/22 History tablet,extended release(part/cryst) rosuvastatin 40 mg tablet 40 mg PO BEDTIME 04/12/21 04/03/22 04/02/22 History multivit with min-folic 1 tab PO DAILY 04/25/21 04/03/22 04/03/22 History acid-lutein 400 mcg-250 mcg chewable tablet (Centrum Silver) acetaminophen 500 mg tablet 500 mg PO Q6H PRN Pain 05/21/21 04/03/22 03/01/22 History (Tylenol Extra Strength) Thumb Spica #1 ea 02/26/22 04/03/22 Unknown Rx Bone Growth Stimulator E0748 #1 ea 03/02/22 04/03/22 Unknown Rx levothyroxine 75 mcg tablet 75 mcg PO QAM 03/02/22 04/03/22 04/03/22 History albuterol sulfate 90 mcg/actuation 2 puff inhalation Q6H PRN 03/04/22 04/03/22 Unknown History aerosol inhaler Shortness Of Breath amiodarone 100 mg tablet 100 mg PO QAM 03/04/22 04/03/22 04/03/22 History apixaban 5 mg tablet (Eliquis) 5 mg PO BID@07,19 03/04/22 04/03/22 03/22/22 History clopidogrel 75 mg tablet 75 mg PO QAM 03/04/22 04/03/22 04/03/22 History sennosides 8.6 mg capsule (senna) 17.2 mg PO BID 03/23/22 04/03/22 04/03/22 History bumetanide 2 mg tablet 2 mg PO DAILY 03/25/22 04/03/22 04/03/22 History metoprolol tartrate 25 mg tablet 12.5 mg PO BID #60 tabs 03/25/22 04/03/22 04/03/22 Rx Allergies Allergy/AdvReac Type Severity Reaction Status Date / Time JACKIE Inhibitors Allergy Unknown Unknown Verified 04/03/22 12:26 aspirin Allergy ALGY-Hives Verified 04/03/22 12:26 Latex, Natural Rubber Allergy ALGY-Rash Verified 04/03/22 12:26 Current Medications Generic Name Dose Route Start Last Admin Trade Name Freq PRN Reason Stop Dose Admin Amiodarone HCl 900 mg/ 518 mls @ 17.267 mls/hr 04/03/22 14:15 04/03/22 14:30 Dextrose/ IV Miscellaneous IV 0.5 mg/min Supplies CONT RICARDO 17.27 mls/hr Administration 0.5 MG/MIN PFSH Acute PFSH: Medical History Acute [place] Acute non-ST elevation myocardial infarction (NSTEMI) Anemia Atrial fibrillation Rate control on anticoagulation Chronic kidney disease Coronary artery disease Coronary artery disease Hyperlipidemia Hypertension Well-controlled Sustained VT (ventricular tachycardia) Continue current regimen including beta-ashley, amiodarone. Appear to be stable not in VT anymore. Can be discharged home. Ventricular tachycardia Surgical History History of back surgery History of cardiac defibrillator placement Stented coronary artery Family History Mother No problems noted. Father No problems noted. Other CAD (coronary artery disease) Social History Smoking and tobacco status: never smoked Alcohol intake: never Adopted: No Caregiver/support person: Yes Housing: Jail Marital status: / Current occupational status: retired History of recent travel: No Vitals/I&O/Wt Last Vital Signs Temp 98.4 F 04/03/22 10:35 Pulse 88 04/03/22 17:05 Resp 22 H 04/03/22 17:05 BP 139/63 04/03/22 17:05 Pulse Ox 98 04/03/22 17:05 O2 Del Method 04/03/22 16:54 Weight last 48 hrs Weight 185 lb Weight 185 lb Physical Exam Narrative: GENERAL: Patient is alert, awake and oriented x3. [] HEART: Regular S1 and S2. No murmur, rub or gallop. [] LUNGS: Clear to auscultate bilaterally. [] ABDOMEN: Soft CENTRAL NERVOUS SYSTEM: Grossly nonfocal. [] EXTREMITIES: Lower extremities with 1+ edema bilaterally. Pulses palpable in the lower extremities, both dorsalis pedis and posterior tibial. [] Data : 04/04/22 02:30 10/01/22 02:30 A&P Assessment and plan (1) Syncope: (2) Ventricular tachycardia: (3) Hypertension: (4) Coronary artery disease: (5) Cardiomyopathy: (6) Hyperlipidemia: (7) Atrial fibrillation: Plan Patient has been having more frequent or ventricular tachycardia episodes. Continue on amiodarone drip. Tomorrow we will switch to p.o. amiodarone 400 mg twice daily. Trend troponins. If Rhythm stays stable, will need higher dose of amiodarone as outpatient. Order echocardiogram Can restart metoprolol. Monitor blood pressure Monitor electrolytes keep mag> over 2 K>4. Thank you for involving us with care of this patient. We will continue to follow. Please call with questions. Consult Attestations Medical Necessity Statement: Care expected to cross 2 midnights. Coding Level of Care Code Acute Water Treatment Plant Supervisor for Lawson Zelaya Diagnoses Syncope R55 Ventricular tachycardia I47.2 Hypertension I10 Coronary artery disease I25.10 Cardiomyopathy I42.9 Hyperlipidemia E78.5 Atrial fibrillation I48.91
[2022-04-03 17:39] LABS: Troponin 5 6HR 51.91 ng/L (0-15)
--- NOTE | 2022-04-03 18:05 | USCV_ITS ---
Willis Saucedomie Age: 86 Gender: M : 1935 Exam Date: 04/03/2022 18:16 Ordering Phys: Ayaan Sen M.D ([email or web address]) Technologist: Leslie Hernandez [place] [facility] [place]ication: Vent Tachy BP: 144 / 63 HR: 104 Rhythm: Sinus Technical Quality: Adequate MEASUREMENTS (Male / Female) Normal Values 2D ECHO LV Diastolic Diameter PLAX 4.4 cm 4.2 - 5.9 / 3.9 - 5.3 cm LV Systolic Diameter PLAX 2.4 cm LV Chamber Size 4.7 cm IVS Diastolic Thickness 1.1 cm 0.6 - 1.0 / 0.6 - 0.9 cm IVS Systolic Thickness 1.5 cm LVPW Diastolic Thickness 1.6 cm 0.6 - 1.0 / 0.6 - 0.9 cm LVPW Systolic Thickness 1.4 cm RV Chamber Size 4.0 cm LVOT Diameter 2.0 cm LV Ejection Fraction 2D Teich 77.6 % LV Ejection Fraction MOD 2C 64.0 % LV Ejection Fraction 2C AL 66.0 % LA Diameter 4.8 cm LA Width 5.0 cm LA Height 6.9 cm RA Width 4.4 cm RA Height 5.4 cm Aorta at Sinotubular Diameter 2.5 cm M-MODE Aortic Annulus Diameter 1.8 cm LA Ao Ratio MM 1.4 MV E Point Septal Separation 1.1 cm DOPPLER AV Peak Velocity 193.0 cm/s LVOT Peak Velocity 94.0 cm/s AV Area Cont Eq vti 2.0 cm squared AV Area Cont Eq pk 1.6 cm squared MV Area PHT 5.8 cm squared MV E' Velocity 115.0 cm/s Mitral E to LV E' Septal Ratio 9.0 TR Peak Velocity 283.4 cm/s TR Peak Gradient 32.1 mmHg TR Mean Velocity 220.2 cm/s TR Mean Gradient 21.7 mmHg TR Velocity Time Integral 86.4 cm TV Peak E Velocity 77.0 cm/s Right Atrial Pressure 3.0 mmHg Pulmonary Artery Systolic Pressu 35.1 mmHg RV Acceleration Time 0.2 s RV Ejection Time 0.4 s RV AcT/ET 0.6 FINDINGS Left Ventricle Left ventricle is normal in size. LV systolic function is normal with EF of 50 to 55%. No regional wall motion abnormalities are seen. Right Ventricle RV is normal in size and function. Pacemaker lead is seen Right Atrium Normal in size. Pacemaker lead is seen Left Atrium Left atrium is dilated. Mitral Valve Grossly normal mitral valve. Mild mitral regurgitation. Aortic Valve Aortic valve is thickened. Mild aortic stenosis is seen. Aortic valve area is 1.6 cm squared with mean gradient of 7 mmHg.Mild aortic regurgitation Tricuspid Valve Mild tricuspid regurgitation. RVSP is 35 to 40 mmHg. This is consistent with mild pulmonary hypertension Pulmonic Valve Not well visualized Pericardium Grossly normal Aorta Aorta is normal size IVC CONCLUSIONS LV systolic function is normal with EF 55 to 55%. Left atrial dilation seen Mild mitral regurgitation Aortic valve is thickened. Mild aortic stenosis. Mild aortic regurgitation Mild tricuspid regurgitation Compared to prior echocardiogram from 04/25/2021, LV systolic function has improved and has normalized. Ayaan Sen MD (Electronically Signed) Final Date: 04 April 2022 21:30 S
[2022-04-03] MEDS: sennosides 8.6 mg Tablet 17.2 MG PO (18:17)
[2022-04-03] MEDS: apixaban 5 mg Tablet PO (18:17)
[2022-04-03] MEDS: metoprolol tartrate 25 mg Tablet PO (20:39)
[2022-04-03] MEDS: atorvastatin 40 mg Tablet 80 MG PO (20:39)
[2022-04-04] VITALS (47 sets, daily range): BP systolic 98–139; BP diastolic 49–93; PULSE 0–92; RESP 14–35; TEMP 36.6–36.9; O2SAT 85–98; BMI 34.9
[2022-04-04 03:59] LABS: Basophils % 0.7 %; Eosinophils # 0.2 10^3/uL (0.0-0.8); Eosinophils % 3.7 %; Hematocrit 27.9 % (42.0-52.0); Hemoglobin 8.6 g/dL (11.7-16.6); Lymphocytes # 1.2 10^3/uL (0.8-4.8); Lymphocytes % 26.7 %; Mean Corpuscular HGB Conc 30.8 g/dL (30.0-36.0); Mean Corpuscular Hemoglobin 28.9 pg (28.0-34.0); Mean Corpuscular Volume 93.6 fl (80-94); Mean Platelet Volume 9.3 fL (7.4-10.4); Monocytes # 0.7 10^3/uL (0.2-0.9); Monocytes % 15.8 %; Neutrophils # 2.44 10^3/uL (1.8-7.7); Neutrophils % 52.9 %; Nucleated Red Blood Cells % 0 %; Platelet Count 256 10^3/cmm (130-400); Red Blood Count 2.98 10^6/uL (4.1-5.3); Red Cell Distribution Width 17.3 % (12.1-15.1); White Blood Count 4.6 10^3/uL (4.0-10.0)
[2022-04-04 04:20] LABS: Anion Gap 13.4 (5-19); Blood Urea Nitrogen 12 mg/dL (8-23); Calcium 9.2 mg/dL (8.5-10.5); Carbon Dioxide 22 mmol/L (22-29); Chloride 106 mmol/L (98-107); Glucose 95 mg/dL (65-115); Magnesium 2.1 mg/dL (1.7-2.3); Osmolality Calculated 286 mOsm/kg (285-295); Potassium 3.4 mmol/L (3.5-5.1); Sodium 138 mmol/L (136-145)
[2022-04-04] MEDS: apixaban 5 mg Tablet PO ×2 (06:12→18:05)
[2022-04-04] MEDS: isosorbide mononitrate ER 30 mg Tablet PO (06:12)
[2022-04-04] MEDS: levothyroxine 75 mcg Tablet PO (06:12)
[2022-04-04] MEDS: clopidogrel 75 mg Tablet PO (06:13)
[2022-04-04] MEDS: potassium chloride ER 20 mEq Tablet PO ×2 (08:09→18:05)
[2022-04-04] MEDS: bumetanide 1 mg Tablet 2 MG PO (08:09)
[2022-04-04] MEDS: metoprolol tartrate 25 mg Tablet PO ×2 (08:09→20:07)
[2022-04-04] MEDS: amiodarone 200 mg Tablet 400 MG PO ×2 (10:56→18:06)
--- NOTE | 2022-04-04 12:04 | PM.PN ---
Subjective Subjective: Patient is doing well. no further episodes of prolonged/ sustained VT. On IV amiodarone Vitals/I&O/Wt Last Vital Signs Temp 98.4 F 04/04/22 08:00 Pulse 78 04/04/22 08:30 Resp 19 H 04/04/22 08:30 BP 124/52 04/04/22 08:30 Pulse Ox 97 04/04/22 08:30 O2 Del Method 04/04/22 08:00 04/03/22 04/04/22 04/04/22 22:59 06:59 14:59 Intake Total 50 / 50 360 / 360 Output Total 150 / 150 150 / 300 700 / 700 Balance -100 / -100 -150 / -250 -340 / -340 Weight last 48 hrs Weight 185 lb Weight 185 lb Weight 185 lb Physical Exam Narrative: GENERAL: Patient is alert, awake and oriented x3. [] HEART: Regular S1 and S2. No murmur, rub or gallop. [] LUNGS: Clear to auscultate bilaterally. [] ABDOMEN: Soft CENTRAL NERVOUS SYSTEM: Grossly nonfocal. [] EXTREMITIES: Lower extremities with 1+ edema bilaterally. Pulses palpable in the lower extremities, both dorsalis pedis and posterior tibial. [] Data : 04/05/22 03:33 04/05/22 03:33 A&P Assessment and plan (1) Syncope: (2) Ventricular tachycardia: (3) Hypertension: (4) Coronary artery disease: (5) Cardiomyopathy: (6) Hyperlipidemia: (7) Atrial fibrillation: Plan Patient's ventricular ectopy has improved significantly and no sustained VT episodes. Switch to p.o. amiodarone 400 mg twice daily today. Continue metoprolol. We will watch overnight and if rhythm stays stable by tomorrow, can be discharged home. Echocardiogram shows LV systolic function is improved from before. Monitor electrolytes keep mag> over 2 K>4. Thank you for involving us with care of this patient. We will continue to follow. Please call with questions. Attestations Medical Necessity Statement*: Care expected to cross 2 midnights. Coding Level of Care Code Acute Political Science Faculty Member for g Fwd Diagnoses Syncope R55 Ventricular tachycardia I47.2 Hypertension I10 Coronary artery disease I25.10 Cardiomyopathy I42.9 Hyperlipidemia E78.5 Atrial fibrillation I48.91
--- NOTE | 2022-04-04 14:54 | PC.NURSE ---
Report called to CHAO Ang patient to be transferred via bed to a cardiac step down bed located on the [facility] floor room 275.
--- NOTE | 2022-04-04 16:44 | P.PN_ITS ---
Subjective Subjective: He has not had any further episodes of presyncope. This morning he is having diarrhea. Overnight reported to have had 5 episodes of diarrhea. He is having itching at the Steri-Strips on his back after his recent surgery. Vitals/I&O/Wt Last Vital Signs Temp 98.4 F 04/04/22 08:00 Pulse 67 04/04/22 16:00 Resp 21 H 04/04/22 16:00 BP 114/56 04/04/22 16:00 Pulse Ox 97 04/04/22 15:00 O2 Del Method 04/04/22 08:00 04/04/22 04/04/22 04/04/22 06:59 14:59 22:59 Intake Total 971.305 / 971.305 Output Total 150 / 300 1175 / 1175 425 / 1600 Balance -150 / -250 -203.695 / -203.695 -425 / -628.695 Weight last 48 hrs Weight 83.915 kg Weight 83.915 kg Weight 83.915 kg Physical Exam Narrative: Family at bedside Const: COMMON NORMALS: patient oriented x3 and alert GENERAL APPEARANCE: cooperative ORIENTATION/CONSCIOUSNESS: Yes awake HENMT: COMMON NORMALS: oropharynx normal OTHER: Mild abrasions on right frontal and coronal scalp Neck/C-Spine: COMMON NORMALS: no JVD Chest: OTHER: Left side chest ICD appears unremarkable Resp: COMMON NORMALS: normal respiratory effort and clear to auscultation bilaterally AUSCULTATION: clear to auscultation bilaterally Cardio: COMMON NORMALS: no JVD, regular rhythm, S1 normal heart sound present, S2 normal heart sound present and No murmurs present (Cardio) RATE: tachycardic RHYTHM: regular rhythm and abnormal rhythm HEART SOUNDS: S1 normal heart sound present and S2 normal heart sound present GI: COMMON NORMALS: Normal to inspection, nondistended, normoactive bowel sounds present, Soft to palpation and non-tender PALPATION: Yes Soft to palpation Back/Pelvis: OTHER: Steri strips peeling off over incisional wounds. Small amount of crusting/scabbing under. Slight swelling wound margins, no surrounding erythema, no drainage. Extremity: COMMON NORMALS: no joint enlargement and no pedal edema Neuro: COMMON NORMALS: patient oriented x3 and moves all extremities SENSORIUM/ORIENTATION: Yes alert Skin: COMMON NORMALS: no rashes or lesions noted GENERAL SKIN EXAM: no rashes or lesions noted Data : 04/04/22 02:30 04/04/22 02:30 A&P Assessment and plan (1) Ventricular tachycardia: Few short runs of VT, but no longer having long runs like yesterday. Discussed with cardiology. Transition to oral amiodarone 400 mg twice daily for a week. Transition subsequently to 200 twice daily. Continue metoprolol 25 mg twice daily. Continue care on CSU. Ventricular tachycardia, atrial fibrillation episodes. Most nonsustained. Has required overdrive pacing, and this morning around 930 around the time he had syncopal episode defibrillation. Normal TSH (2) Syncope: Secondary to the above. Recently has been having some orthostatic like symptoms, unclear at this point whether orthostasis is contributing or whether it is due to entirely rounds of ventricular arrhythmia. (3) Chronic kidney disease: Creatinine continues to improve, down to 1.2. Recently KARL, creatinine was as high as 3. Losartan was held. Bumex dose was decreased. Replace potassium. Magnesium is okay. His metoprolol recently was decreased from 25 mg twice daily to 12.5 mg twice daily due to orthostatic symptoms. Plan Diarrhea: Multiple episodes. Check C. difficile. Itching Steri-Strips: Remove remaining Steri-Strips which are still in place. Some scabbing/crusting under Steri-Strips, mild swelling, no erythema, no drainage. Reassess wounds. Follow-up with orthopedics. Hypothyroidism: Normal TSH Mild abrasion on scalp after fall Chronic back pain Recent back surgery Anemia Atrial fibrillation CAD status post stenting HTN HLD Other chronic morbidities noted Attestations Medical Necessity Statement*: Continue admission for assessment of management of recurrent ventricular tachycardia, changing renal function, replacement of electrolytes, transition to oral amiodarone. Coding Level of Care Code Acute Technician Support Association for [facility] Fwd Diagnoses Ventricular tachycardia I47.2 Syncope R55 Chronic kidney disease N18.9
--- NOTE | 2022-04-04 17:24 | PC.NURSE ---
Pt transferred to [facility] room 275 via bed accompanied by this nurse, CHAO Chanel, and daughter. Sav RN noted to be at bedside. Pt A&OX4, on RA, and denies pain at time of transfer.
[2022-04-04] MEDS: atorvastatin 40 mg Tablet 80 MG PO (20:07)
[2022-04-04] MEDS: trazodone 50 mg Tablet 25 MG PO (20:07)
[2022-04-05] VITALS (13 sets, daily range): BP systolic 89–127; BP diastolic 42–81; PULSE 55–73; RESP 16–21; TEMP 36.6–37; O2SAT 95–98
[2022-04-05] MEDS: acetaminophen 500 mg Tablet PO ×2 (03:13→22:17)
[2022-04-05 04:22] LABS: Basophils % 0.8 %; Eosinophils # 0.3 10^3/uL (0.0-0.8); Eosinophils % 6.3 %; Hematocrit 27.9 % (42.0-52.0); Hemoglobin 8.5 g/dL (11.7-16.6); Lymphocytes # 1.1 10^3/uL (0.8-4.8); Lymphocytes % 21.4 %; Mean Corpuscular HGB Conc 30.5 g/dL (30.0-36.0); Mean Corpuscular Hemoglobin 28.6 pg (28.0-34.0); Mean Corpuscular Volume 93.9 fl (80-94); Monocytes # 0.8 10^3/uL (0.2-0.9); Monocytes % 15.1 %; Neutrophils # 2.83 10^3/uL (1.8-7.7); Neutrophils % 56.2 %; Nucleated Red Blood Cells % 0 %; Platelet Count 242 10^3/cmm (130-400); Red Blood Count 2.97 10^6/uL (4.1-5.3); Red Cell Distribution Width 17.3 % (12.1-15.1)
[2022-04-05 04:41] LABS: Anion Gap 9.5 (5-19); Blood Urea Nitrogen 12 mg/dL (8-23); Calcium 8.9 mg/dL (8.5-10.5); Carbon Dioxide 24 mmol/L (22-29); Chloride 104 mmol/L (98-107); Glucose 92 mg/dL (65-115); Osmolality Calculated 277 mOsm/kg (285-295); Potassium 3.5 mmol/L (3.5-5.1); Sodium 134 mmol/L (136-145)
[2022-04-05] MEDS: isosorbide mononitrate ER 30 mg Tablet PO (06:01)
[2022-04-05] MEDS: levothyroxine 75 mcg Tablet PO (06:02)
[2022-04-05] MEDS: clopidogrel 75 mg Tablet PO (06:02)
[2022-04-05] MEDS: apixaban 5 mg Tablet PO ×2 (06:02→18:01)
[2022-04-05] MEDS: sennosides 8.6 mg Tablet 17.2 MG PO ×2 (08:32→18:00)
[2022-04-05] MEDS: potassium chloride ER 20 mEq Tablet PO ×2 (08:33→18:01)
--- NOTE | 2022-04-05 09:20 | PM.PN ---
Subjective Subjective: Patient's rhythm has been staying stable. Had hypotensive episode this AM Vitals/I&O/Wt Last Vital Signs Temp 98.1 F 04/05/22 07:45 Pulse 64 04/05/22 08:00 Resp 16 04/05/22 08:00 BP 89/42 04/05/22 07:45 Pulse Ox 95 04/05/22 08:00 O2 Del Method 04/05/22 08:00 04/04/22 04/05/22 04/05/22 22:59 06:59 14:59 Intake Total 480 / 1451.305 300 / 1751.305 Output Total 425 / 1600 400 / 2000 Balance 55 / -148.695 -100 / -248.695 Weight last 48 hrs Weight 179 lb 3.2 oz Weight 185 lb Weight 185 lb Weight 185 lb Physical Exam Narrative: GENERAL: Patient is alert, awake and oriented x3. [] HEART: Regular S1 and S2. No murmur, rub or gallop. [] LUNGS: Clear to auscultate bilaterally. [] ABDOMEN: Soft CENTRAL NERVOUS SYSTEM: Grossly nonfocal. [] EXTREMITIES: Lower extremities with 1+ edema bilaterally. Pulses palpable in the lower extremities, both dorsalis pedis and posterior tibial. [] Data : 04/05/22 03:33 04/05/22 03:33 A&P Assessment and plan (1) Syncope: (2) Ventricular tachycardia: (3) Hypertension: (4) Coronary artery disease: (5) Cardiomyopathy: (6) Hyperlipidemia: (7) Atrial fibrillation: Plan No significant VT episodes. Continue p.o. amiodarone 400 mg twice daily today. Continue metoprolol. As had hypotensive episode, will recommend stopping Imdur. Echocardiogram shows LV systolic function is improved from before. Monitor electrolytes keep mag> over 2 K>4. Thank you for involving us with care of this patient. We will continue to follow. Please call with questions. Attestations Medical Necessity Statement*: Care expected to cross 2 midnights. Coding Level of Care Code Acute Shipping Room Supervisor for [facility] Diagnoses Syncope R55 Ventricular tachycardia I47.2 Hypertension I10 Coronary artery disease I25.10 Cardiomyopathy I42.9 Hyperlipidemia E78.5 Atrial fibrillation I48.91
[2022-04-05] MEDS: amiodarone 200 mg Tablet 400 MG PO ×2 (09:31→18:00)
[2022-04-05] MEDS: metoprolol tartrate 25 mg Tablet PO ×2 (09:31→20:24)
[2022-04-05] MEDS: bumetanide 1 mg Tablet 0.5 MG PO (11:57)
--- NOTE | 2022-04-05 15:36 | P.PN_ITS ---
Subjective Subjective: He has not had any more syncopal or presyncopal episodes. Having some discomfort in the left side rib cage with movement, deep inspiration, after a fall, but feels it was exacerbated after sleeping on an EKG lead. This morning noted little bit darker urine. Was having some itching of his back but also some other places. Steri-Strips were removed. Wounds on the back. Good. Vitals/I&O/Wt Last Vital Signs Temp 98.3 F 04/05/22 11:54 Pulse 56 L 04/05/22 11:53 Resp 19 H 04/05/22 11:53 BP 108/54 04/05/22 11:53 Pulse Ox 95 04/05/22 11:53 O2 Del Method 04/05/22 11:53 04/05/22 04/05/22 04/05/22 06:59 14:59 22:59 Intake Total 300 / 1751.305 596 / 596 Output Total 400 / 2000 200 / 200 Balance -100 / -248.695 396 / 396 Weight last 48 hrs Weight 81.284 kg Weight 83.915 kg Weight 83.915 kg Physical Exam Narrative: Daughter at bedside Const: COMMON NORMALS: patient oriented x3 and alert GENERAL APPEARANCE: cooperative ORIENTATION/CONSCIOUSNESS: Yes awake HENMT: COMMON NORMALS: oropharynx normal OTHER: Mild abrasions on right frontal and coronal scalp healing Neck/C-Spine: COMMON NORMALS: no JVD Chest: OTHER: Left side chest ICD appears unremarkable Resp: COMMON NORMALS: normal respiratory effort and clear to auscultation bilaterally AUSCULTATION: clear to auscultation bilaterally Cardio: COMMON NORMALS: no JVD, regular rhythm, S1 normal heart sound present, S2 normal heart sound present and No murmurs present (Cardio) RATE: tachycardic RHYTHM: regular rhythm and abnormal rhythm HEART SOUNDS: S1 normal heart sound present and S2 normal heart sound present GI: COMMON NORMALS: Normal to inspection, nondistended, normoactive bowel sounds present, Soft to palpation and non-tender PALPATION: Yes Soft to palpation Back/Pelvis: OTHER: Steri strips removed from back, wounds appear to be healing well, no erythema or swelling, no drainage. Extremity: COMMON NORMALS: no joint enlargement and no pedal edema Neuro: COMMON NORMALS: patient oriented x3 and moves all extremities SENSORIUM/ORIENTATION: Yes alert Skin: COMMON NORMALS: no rashes or lesions noted GENERAL SKIN EXAM: no rashes or lesions noted Data : 04/05/22 03:33 04/05/22 03:33 A&P Assessment and plan (1) Ventricular tachycardia: This morning blood pressure 1 episode low at 89/42 after receiving Imdur. Imdur for now discontinued. Discussed with cardiology, cardiology requesting to monitor additional night in the hospital. Continue amiodarone 400 mg twice daily for 1 week, then transition to 200 mg twice daily. Continue metoprolol 25 mg twice daily. Ventricular tachycardia, atrial fibrillation episodes. Most nonsustained. Has required overdrive pacing, and admission morning around 930 around the time he had syncopal episode defibrillation. Normal TSH (2) Syncope: Secondary to the above. Recently has been having some orthostatic like symptoms, unclear at this point whether orthostasis is contributing or whether it is due to entirely rounds of ventricular arrhythmia. (3) Chronic kidney disease: Creatinine continues to improve, down to 1. Possibly with improvement in left ventricular ejection fraction. Recently KARL, creatinine was as high as 3. [place] was held. Bumex dose was decreased. Replace potassium. Magnesium is okay. His metoprolol recently was decreased from 25 mg twice daily to 12.5 mg twice daily due to orthostatic symptoms. Plan Recent UTI: Completed antibiotic course Mild left-sided chest wall discomfort: After fall at home, worsening if he takes deep breaths or moves around. Feels it worsened also after sleeping on EKG lead overnight. Suspect he had further injured musculoskeletal structures in his chest wall after the syncope and collapse likely previously injured during cardiopulmonary arrest and CPR. Diarrhea: Multiple episodes. Check C. difficile. Itching Steri-Strips: Steri-Strips removed. Wounds appear clean, healing well. Benadryl topical as needed available. Follow-up with orthopedics. Hypothyroidism: Normal TSH Mild abrasion on scalp after fall Chronic back pain Recent back surgery Anemia Atrial fibrillation CAD status post stenting HTN HLD Other chronic morbidities noted Attestations Medical Necessity Statement*: Continue admission for assessment agement of ventricular tachycardia episodes, optimization of control, reassessment of blood pressure. Coding Level of Care Code Acute Boat Ride Operator for [facility] Fwd Diagnoses Ventricular tachycardia I47.2 Syncope R55 Chronic kidney disease N18.9
[2022-04-05] MEDS: atorvastatin 40 mg Tablet 80 MG PO (20:24)
[2022-04-05] MEDS: trazodone 50 mg Tablet 25 MG PO (22:18)
[2022-04-06] VITALS: BP 127/74; PULSE 61; RESP 17; TEMP 36.8; O2SAT 94
[2022-04-06 02:19] LABS: Basophils % 0.6 %; Eosinophils # 0.4 10^3/uL (0.0-0.8); Eosinophils % 7.8 %; Hematocrit 27.2 % (42.0-52.0); Hemoglobin 8.4 g/dL (11.7-16.6); Lymphocytes # 1.1 10^3/uL (0.8-4.8); Lymphocytes % 22.3 %; Mean Corpuscular HGB Conc 30.9 g/dL (30.0-36.0); Mean Corpuscular Hemoglobin 29.1 pg (28.0-34.0); Mean Corpuscular Volume 94.1 fl (80-94); Monocytes # 0.7 10^3/uL (0.2-0.9); Monocytes % 14.7 %; Neutrophils # 2.71 10^3/uL (1.8-7.7); Neutrophils % 54.4 %; Nucleated Red Blood Cells % 0 %; Platelet Count 231 10^3/cmm (130-400); Red Blood Count 2.89 10^6/uL (4.1-5.3); Red Cell Distribution Width 17.2 % (12.1-15.1)
[2022-04-06 02:42] LABS: Anion Gap 11.7 (5-19); Blood Urea Nitrogen 16 mg/dL (8-23); Calcium 8.8 mg/dL (8.5-10.5); Carbon Dioxide 22 mmol/L (22-29); Chloride 104 mmol/L (98-107); Creatinine Clr Calc Pharmacy 55.2167; Glucose 89 mg/dL (65-115); Osmolality Calculated 279 mOsm/kg (285-295); Potassium 3.7 mmol/L (3.5-5.1); Sodium 134 mmol/L (136-145)
--- NOTE | 2022-04-06 03:03 | PC.NURSE ---
Spoke with regarding changing patient to medsurg with tele. said was ok to downgrade patient to medsurg with tele. Patient was moved to room 271, placed on telemetry box 10. Patients call das placed within reach, patient voiced no complaints at this time.
[2022-04-06 04:00] VITALS: BP 128/65; PULSE 60; RESP 18; TEMP 36.8; O2SAT 95
[2022-04-06] MEDS: apixaban 5 mg Tablet PO (06:07)
[2022-04-06] MEDS: clopidogrel 75 mg Tablet PO (06:07)
[2022-04-06] MEDS: levothyroxine 75 mcg Tablet PO (06:07)
[2022-04-06 08:00] VITALS: BP 130/70; PULSE 62; RESP 18; RESP 20; TEMP 37.1; O2SAT 94; O2SAT 95
--- NOTE | 2022-04-06 08:01 | PM.PN ---
Subjective Subjective: Patient is stable. Rhythm has been staying stable. Vitals/I&O/Wt Last Vital Signs Temp 98.3 F 04/06/22 04:00 Pulse 60 04/06/22 04:00 Resp 18 04/06/22 04:00 BP 128/65 04/06/22 04:00 Pulse Ox 95 04/06/22 04:00 O2 Del Method 04/05/22 19:47 04/05/22 04/06/22 04/06/22 22:59 06:59 14:59 Intake Total 420 / 1016 900 / 1916 Output Total 180 / 380 275 / 655 Balance 240 / 636 625 / 1261 Weight last 48 hrs Weight 184 lb 11.2 oz Weight 179 lb 3.2 oz Physical Exam Narrative: GENERAL: Patient is alert, awake and oriented x3. [] HEART: Regular S1 and S2. No murmur, rub or gallop. [] LUNGS: Clear to auscultate bilaterally. [] ABDOMEN: Soft CENTRAL NERVOUS SYSTEM: Grossly nonfocal. [] EXTREMITIES: Lower extremities with 1+ edema bilaterally. Pulses palpable in the lower extremities, both dorsalis pedis and posterior tibial. [] Data : 04/06/22 01:39 04/06/22 01:39 A&P Assessment and plan (1) Syncope: (2) Ventricular tachycardia: (3) Hypertension: (4) Coronary artery disease: (5) Cardiomyopathy: (6) Hyperlipidemia: (7) Atrial fibrillation: Plan Rhythm has stayed stable. Continue amiodarone 400 mg twice daily for 1 week and then switch to 200 mg twice daily. Imdur stopped. Continue metoprolol Thank you for involving us with care of this patient. Patient is stable to be discharged from cardiology standpoint. Please call with questions. Attestations Medical Necessity Statement*: Care expected to cross 2 midnights. Coding Level of Care Code Acute Retail Coordinator for [facility] Fwd Diagnoses Syncope R55 Ventricular tachycardia I47.2 Hypertension I10 Coronary artery disease I25.10 Cardiomyopathy I42.9 Hyperlipidemia E78.5 Atrial fibrillation I48.91
[2022-04-06] MEDS: potassium chloride ER 20 mEq Tablet PO (10:05)
[2022-04-06] MEDS: amiodarone 200 mg Tablet 400 MG PO (10:06)
[2022-04-06] MEDS: metoprolol tartrate 25 mg Tablet PO (10:06)
[2022-04-06 12:00] VITALS: BP 105/58; PULSE 58; RESP 16; TEMP 36.8; O2SAT 97
--- NOTE | 2022-04-06 12:26 | PC.CHAP ---
Pastoral Care Encounter/Spiritual Assessment Type of Contact [] Declined lens grinding machine operator visit [] Patient/Family/Request visit [] Outpatient visit [] Follow-up visit [] Physician referral [] Code/Alert [x] Routine visit [] Staff referral [] Actively dying [] Patient sleeping [] Family support [] [] Out of room [] Palliative care [] [] Receiving care in room [] Pre-surgical visit [] Trauma [] Long length of stay [] ICU visit [] Other: Relational/Emotional Strength [x] Patient feels connected with others/family/visitors/staff [] Distress [] Loneliness/isolation [] Abandonment Spirituality of Patient [x] Person of Shy [] Attends Baptism of their Shy [] Believes in Prayer [] Reads Bible or Muslim materials [] There are Spiritual issues to be addressed Assistant Grocery Interventions [x] Prayer [x] Active listening [x] Non-anxious presence [] Spiritual/emotional support [] Crisis/trauma care [] Spiritual counseling [] Bereavement support [] Provided bereavement packet [] Provided Bible/devotional materials [] Provided toy/stuffed animal, coloring book to patient or family member [] Provided Communion [] Anointing/[place] [] Salvation [x] Completed spiritual assessment [] Other: Impact on Illness or Injury [] Angry [] Fearful [] Anxious [] Often cries [] Exhaustion [] Unable to work [] Unable to attend faith [] Unable to walk/stand [] Unable to read [] Unable to drive [] Unable to eat/drink [] Unable to sleep [] Unable to be with family [] Patient intubated [] Other: Summary Time spent with patient 15 min
--- NOTE | 2022-04-06 12:42 | PM.DCS ---
Discharge Providers Date of Admission: 04/03/22 14:14 Date of Discharge: April 06, 2022 Attending Provider at Admission: Yossi Austin Attending Provider at Discharge: Vasu Mckeon MD Primary Care Provider: Gene Peralta Diagnoses at Discharge Discharge Diagnosis (1) Syncope: Status: Acute (2) Ventricular tachycardia: Status: Acute (3) Hypertension: Status: Acute Permanent problem details: Well-controlled (4) Coronary artery disease: Status: Acute (5) Cardiomyopathy: Status: Acute Permanent problem details: History of ischemic cardiomyopathy, do not need revascularization, continue optimal medical regimen (6) Hyperlipidemia: Status: Acute (7) Atrial fibrillation: Status: Acute Permanent problem details: Rate control on anticoagulation Reason for Visit Reason for Visit: WEAKNESS/ DIZZINESS Hospital Course Hospital Course 86-year-old gentleman with history of CAD, coronary stenting most recently in April 2021, cardiomyopathy, EF 40-45%, ventricular tachycardia, atrial fibrillation, status post PPM, ICD, HTN, HLD, chronic back pain, BPH, CKD, recent KARL, recent orthostatic symptoms, Flomax was switched to terazosin recently, dementia dose was decreased, due to orthostasis losartan was held, metoprolol dose decreased from 25 mg daily to 12.5 mg daily, continues on amiodarone 100 mg daily. Recently with symptoms of orthostasis, dizzy episodes, episodes of hot flashes and sweats .? This morning syncopal episode during which he fell to the floor.? Patient was admitted to [facility] with syncopal episodes CKD. Patient was managed with amiodarone therapy, medical management with decreasing his Metroprolol to 12.5 twice daily, stop his Imdur, clinical monitoring. No recurrent syncopal episodes. Will be discharged on amiodarone tapering dose with close follow-up with cardiology as outpatient. Patient currently 5 mg twice daily, Imdur was stopped. Due to his KARL on CKD, losartan has been stopped, Bumex has been held, can be restarted as outpatient. Follow-up with cardiology, follow-up with primary care Physical Exam Const: COMMON NORMALS: no acute distress Resp: COMMON NORMALS: normal respiratory effort, No retractions, No use of accessory muscles and clear to auscultation bilaterally AUSCULTATION: clear to auscultation bilaterally Cardio: COMMON NORMALS: regular rate, regular rhythm, S1 normal heart sound present and S2 normal heart sound present RATE: regular rate RHYTHM: regular rhythm HEART SOUNDS: S1 normal heart sound present and S2 normal heart sound present GI: COMMON NORMALS: Normal to inspection, nondistended, normoactive bowel sounds present and non-tender Extremity: COMMON NORMALS: no pedal edema Discharge Data Studies Completed and Pending Completed Studies During Hospitalization Category Date Time Status CT head wo con* [id number] Stat Cat Scan 04/03/22 10:44 Completed XR chest 1V portable [id number] Stat Exams 04/03/22 10:44 Completed CV. echo complete* [id number] Routine Ultrasound 04/03/22 18:05 Completed Pending at discharge Category Date Time Status Basic Metabolic Panel AM LABS Lab 04/07/22 04:00 Ordered C DIFF [Clostridioides Difficile PCR] Routine Lab 04/06/22 08:30 Received Complete Blood Count w/Auto AM LABS Lab 04/07/22 04:00 Ordered Radiology Impressions Chest X-Ray 04/03/22 10:44 IMPRESSION: 1. Mild cardiac enlargement. No acute process noted. Head CT 04/03/22 10:44 IMPRESSION: No acute intracranial abnormality. Laboratory Results WBC 5.0 10^3/uL (4.0-10.0) 04/06/22 01:39 RBC 2.89 10^6/uL (4.1-5.3) L 04/06/22 01:39 Hgb 8.4 g/dL (11.7-16.6) L 04/06/22 01:39 Hct 27.2 % (42.0-52.0) L 04/06/22 01:39 MCV 94.1 fl (80-94) H 04/06/22 01:39 MCH 29.1 pg (28.0-34.0) 04/06/22 01:39 MCHC 30.9 g/dL (30.0-36.0) 04/06/22 01:39 RDW 17.2 % (12.1-15.1) H 04/06/22 01:39 Plt Count 231 10^3/cmm (130-400) 04/06/22 01:39 MPV 9.0 fL (7.4-10.4) 04/06/22 01:39 Neut % (Auto) 54.4 % 04/06/22 01:39 Lymph % (Auto) 22.3 % 04/06/22 01:39 [place] % (Auto) 14.7 % 04/06/22 01:39 Eos % (Auto) 7.8 % 04/06/22 01:39 Baso % (Auto) 0.6 % 04/06/22 01:39 Neut # (Auto) 2.71 10^3/uL (1.8-7.7) 04/06/22 01:39 Lymph # (Auto) 1.1 10^3/uL (0.8-4.8) 04/06/22 01:39 [place] # (Auto) 0.7 10^3/uL (0.2-0.9) 04/06/22 01:39 Eos # (Auto) 0.4 10^3/uL (0.0-0.8) 04/06/22 01:39 Baso # (Auto) 0.0 10^3/uL (0.0-0.1) 04/06/22 01:39 Nucleated RBC % (auto) 0 % 04/06/22 01:39 Nucleated RBCs # 0.0 /100WBC 04/06/22 01:39 Sodium 134 mmol/L (136-145) L 04/06/22 01:39 Potassium 3.7 mmol/L (3.5-5.1) 04/06/22 01:39 Chloride 104 mmol/L (98-107) 04/06/22 01:39 Carbon Dioxide 22 mmol/L (22-29) 04/06/22 01:39 Anion Gap 11.7 (5-19) 04/06/22 01:39 BUN 16 mg/dL (8-23) 04/06/22 01:39 Creatinine 0.9 mg/dL (0.7-1.2) 04/06/22 01:39 GFR Calculation Not Reportable 04/06/22 01:39 Glucose 89 mg/dL (65-115) 04/06/22 01:39 Calculated Osmolality 279 mOsm/kg (285-295) L 04/06/22 01:39 Calcium 8.8 mg/dL (8.5-10.5) 04/06/22 01:39 Magnesium 2.0 mg/dL (1.7-2.3) 04/05/22 03:33 Total Bilirubin 0.4 mg/dL (0.15-1.2) 04/03/22 10:39 AST 33 U/L (0-40) 04/03/22 10:39 ALT 43 U/L (0-41) H 04/03/22 10:39 Alkaline Phosphatase 107 U/L (40-130) 04/03/22 10:39 Troponin T Baseline 64 ng/L (0-15) H 04/03/22 10:39 Troponin T 120 Minute 51.59 ng/L (0-15) H 04/03/22 12:46 Delta Troponin T -12.41 ABS# (0-10) L 04/03/22 12:46 Troponin T Hi Sens 6Hr 51.91 ng/L (0-15) H 04/03/22 16:56 Troponin T Hi Sens 6Hr Delta -12.09 ng/L (0-12) L 04/03/22 16:56 Total Protein 6.7 g/dL (6.6-8.7) 04/03/22 10:39 Albumin 3.0 g/dL (3.5-5.2) L 04/03/22 10:39 Globulin 3.7 g/dL (1.3-4.6) 04/03/22 10:39 TSH 1.80 uIU/mL (0.27-4.20) 04/03/22 10:39 Vitals Last Vital Signs Temp 98.7 F 04/06/22 08:00 Pulse 62 04/06/22 08:00 Resp 20 H 04/06/22 08:00 BP 130/70 04/06/22 08:00 Pulse Ox 94 04/06/22 08:00 O2 Del Method 04/06/22 08:00 Discharge Plan Discharge Patient Disposition: Home Condition: Stable Prescriptions: New amiodarone 200 mg tablet See Rx Instructions .ROUTE .COMPLEX Qty: 90 0RF Rx Instructions: 400 mg twice a day for 1 week, then 200 mg twice a day for 1 week, then 200 mg once a day for 1 week Continued acetaminophen [Tylenol Extra Strength] 500 mg tablet 500 mg PO Q6H PRN (Reason: Pain) metoprolol tartrate 25 mg tablet 12.5 mg PO BID Qty: 60 3RF (DME) Thumb Spica See Rx Instructions .Route .MEDSUPPLY Qty: 1 0RF Rx Instructions: As directed. (DME) Bone Growth Stimulator E0748 See Rx Instructions .Route .MEDSUPPLY Qty: 1 0RF Rx Instructions: As directed potassium chloride 20 mEq tablet,ER particles/crystals 20 meq PO BID nitroglycerin 0.4 mg tablet, sublingual 0.4 mg sublingual Q5MIN PRN (Reason: Chest Pain) rosuvastatin 40 mg tablet 40 mg PO BEDTIME Centrum Silver 400-250 mcg Tablet,Chewable 1 tab PO DAILY levothyroxine 75 mcg tablet 75 mcg PO QAM albuterol sulfate 90 mcg/actuation HFA aerosol inhaler 2 puff INHALATION Q6H PRN (Reason: Shortness Of Breath) clopidogrel 75 mg tablet 75 mg PO QAM Eliquis 5 mg tablet 5 mg PO BID@ senna 8.6 mg Capsule 17.2 mg PO BID Discontinued bumetanide 2 mg tablet 2 mg PO DAILY isosorbide mononitrate 30 mg tablet extended release 24 hr 30 mg PO QAM terazosin 1 mg capsule 1 mg PO BEDTIME amiodarone 100 mg tablet 100 mg PO QAM Discharge Orders: Discharge Order (Routine); Ordered 04/06/22 Ordered By: Vasu Mckeon Referrals: Ayaan Sen M.D [Physician] - 1 month Gene Peralta [Primary Care Provider] - 4-7 days Nancy Jorgensen FNP [Nurse Practitioner] - 1 week Discharge Diet: Cardiac Discharge Activity: Increase activity as tolerated Patient Instructions: Amiodarone (By mouth), Fall Prevention (GEN), Tachycardia (GEN), Pain Management Activity Restrictions/Additional Instructions: Amiodarone has been changed to 400 mg twice daily. Continue that for a week. Then switch to 200 mg twice a day. Then 200 mg once a day Stop Imdur. Your metoprolol dose has been decreased to 12.5 mg twice daily, if you develop lightheadedness or dizziness or if your blood pressures are soft then he can further reduce to 6.25 twice daily Measure blood pressures at home at least twice daily, record values to bring to your appointment with cardiology and primary provider. Please have your primary provider reassess left side rib cage pain. Avoid falls, in case you feel like you may be getting sweats, hot flashes, or any palpitations, sit down or lie down immediately in case you are having abnormal heart rhythms previously to prevent falling down. Seek medical attention in case you have any additional episodes of fainting or feeling like you are about to faint. Follow-up with orthopedics for reassessment of continued healing of surgical wounds. Discharge Attestations Time Spent in Discharge Care*: less than 30 min Quality Metrics Clinical Quality Measures [ No reported AMI, CVA or VTE this stay] Coding Level of Care Code Acute g FW DC note Diagnoses Syncope R55 Ventricular tachycardia I47.2 Hypertension I10 Coronary artery disease I25.10 Cardiomyopathy I42.9 Hyperlipidemia E78.5 Atrial fibrillation I48.91
--- NOTE | 2022-04-06 15:57 | PC.NURSE ---
patient and daughter verbalized understanding of discharge instructions, home medications, and follow up appointments.
[2022-04-06 15:59] VITALS: BP 105/58; PULSE 58; RESP 16; TEMP 36.8; O2SAT 97
== END 2022-04-06 16:00 | disposition home or self-care (01) | DRG 309 ==
LOC: ER 14:07 → ICU 16:02 → MEDSURG 04-04 17:13
PROVIDERS: Admitting Provider Internal Medicine; Emergency Provider Family Medicine; PCP Family Medicine; Visit Provider Family Medicine
DX: I47.20 Ventricular tachycardia, unspecified (principal); I42.9 Cardiomyopathy, unspecified; I25.10 Atherosclerotic heart disease of native coronary artery without angina pectoris; Z95.5 Presence of coronary angioplasty implant and graft; I48.91 Unspecified atrial fibrillation; Z95.810 Presence of automatic (implantable) cardiac defibrillator; I12.9 Hypertensive chronic kidney disease with stage 1 through stage 4 chronic kidney disease, or unspecified chronic kidney disease; N18.9 Chronic kidney disease, unspecified; E78.5 Hyperlipidemia, unspecified; G89.29 Other chronic pain; M54.9 Dorsalgia, unspecified; N40.0 Benign prostatic hyperplasia without lower urinary tract symptoms; F03.90 Unspecified dementia, unspecified severity, without behavioral disturbance, psychotic disturbance, mood disturbance, and anxiety; W18.30XA Fall on same level, unspecified, initial encounter; I25.2 Old myocardial infarction; D63.1 Anemia in chronic kidney disease; R19.7 Diarrhea, unspecified; E03.9 Hypothyroidism, unspecified; I95.9 Hypotension, unspecified; Z79.01 Long term (current) use of anticoagulants; Z79.02 Long term (current) use of antithrombotics/antiplatelets; S00.01XA Abrasion of scalp, initial encounter; Z87.440 Personal history of urinary (tract) infections; R07.81 Pleurodynia
CPT/HCPCS: 36415; 70450; 71045; 80048; 80053; 83735; 84443; 84484; 85025; 87493; 93005; 93306; 96374; 99285; J0282; J7060

== ENCOUNTER → 2022-04-13 09:55 | Outpatient (BNVA) | payer MEDICARE, OTHER, SELFPAY | PROVIDERS: PCP Family Medicine; Visit Provider Nurse Practitioner Family | DX: I47.20 Ventricular tachycardia, unspecified (principal); Z95.810 Presence of automatic (implantable) cardiac defibrillator | CPT/HCPCS: 93282; 99213 ==

== ENCOUNTER → 2022-04-14 11:01 | Outpatient (BNVA) | payer MEDICARE, OTHER, SELFPAY | PROVIDERS: PCP Family Medicine; Visit Provider Physician Assistant | DX: Z98.1 Arthrodesis status (principal); Z47.89 Encounter for other orthopedic aftercare | CPT/HCPCS: 72070; 99024 ==

== ENCOUNTER → 2022-04-20 12:38 | Outpatient (BNVA) | payer MEDICARE, OTHER, SELFPAY | PROVIDERS: PCP Family Medicine; Visit Provider Surgery | DX: D64.9 Anemia, unspecified (principal) | CPT/HCPCS: 99203 ==

== ENCOUNTER 2022-04-23 11:43 | Outpatient (CLI) | payer MEDICARE, OTHER, SELFPAY ==
[2022-04-23 13:06] LABS: Anion Gap 10.1 (5-19); Blood Urea Nitrogen 7 mg/dL (8-23); Calcium 8.6 mg/dL (8.5-10.5); Carbon Dioxide 24 mmol/L (22-29); Chloride 108 mmol/L (98-107); Glucose 112 mg/dL (65-115); NT Pro B Type Natriuretic Pept 1684 pg/mL (0-450); Osmolality Calculated 287 mOsm/kg (285-295); Potassium 3.1 mmol/L (3.5-5.1); Sodium 139 mmol/L (136-145)
== END 2022-04-23 11:44 | disposition home or self-care (01) ==
PROVIDERS: PCP Family Medicine; Visit Provider Internal Medicine
DX: I42.9 Cardiomyopathy, unspecified (principal); I48.91 Unspecified atrial fibrillation; R55 Syncope and collapse
CPT/HCPCS: 36415; 80048; 83880

== ENCOUNTER → 2022-05-01 08:46 | Outpatient (BNVA) | payer MEDICARE, OTHER, SELFPAY | PROVIDERS: PCP Family Medicine; Visit Provider Nurse Practitioner Family | DX: Z45.02 Encounter for adjustment and management of automatic implantable cardiac defibrillator (principal); I42.9 Cardiomyopathy, unspecified; I47.20 Ventricular tachycardia, unspecified; I12.9 Hypertensive chronic kidney disease with stage 1 through stage 4 chronic kidney disease, or unspecified chronic kidney disease; N18.9 Chronic kidney disease, unspecified; E78.5 Hyperlipidemia, unspecified | CPT/HCPCS: 36415; 80048; 83880; 99214 ==

== ENCOUNTER → 2022-05-08 10:49 | Outpatient (BNVA) | payer MEDICARE, OTHER, SELFPAY | PROVIDERS: PCP Family Medicine; Visit Provider Internal Medicine | DX: Z45.02 Encounter for adjustment and management of automatic implantable cardiac defibrillator (principal) | CPT/HCPCS: 93282 ==

== ENCOUNTER → 2022-05-20 13:44 | Outpatient (BNVA) | payer MEDICARE, OTHER, SELFPAY | PROVIDERS: PCP Family Medicine; Visit Provider Internal Medicine | DX: I48.91 Unspecified atrial fibrillation (principal); Z95.810 Presence of automatic (implantable) cardiac defibrillator; I42.9 Cardiomyopathy, unspecified; I25.10 Atherosclerotic heart disease of native coronary artery without angina pectoris; E78.5 Hyperlipidemia, unspecified; I12.9 Hypertensive chronic kidney disease with stage 1 through stage 4 chronic kidney disease, or unspecified chronic kidney disease; N18.9 Chronic kidney disease, unspecified | CPT/HCPCS: 99214 ==

== ENCOUNTER 2022-06-03 06:07 | Day surgery (SDC) | payer MEDICARE, OTHER, SELFPAY ==
[2022-06-01 12:23] VITALS: BMI 28.3
[2022-06-03 06:36] VITALS: BP 141/73; PULSE 112; RESP 16; TEMP 36.3; O2SAT 95
[2022-06-03] MEDS: sodium chloride 0.9% 1,000 ML 30 ML IV (06:38)
--- NOTE | 2022-06-03 07:09 | P.ANESASSM_ITS ---
Pre-Anesthetic Assessment Height/Weight: Height 1.78 m Weight 89.358 kg Temp Pulse Resp BP Pulse Ox O2 Del Method 97.3 F L 112 H 16 141/73 95 06/03/22 06:36 06/03/22 06:36 06/03/22 06:36 06/03/22 06:36 06/03/22 06:36 06/03/22 06:36 Preop Diagnosis: T9-T10 Fracture Operation Date: 06/03/22 08:00 Proposed Procedures p EGD/colonoscopy 89447,17858,D50.9(Not Applicable) - Taco Canchola DO s Colonoscopy(Not Applicable) - Taco Canchola DO Familial anesthetic complications: None Was Beta Sudhir taken within 24 hours: Yes Was Clonidine taken within 24 hours: N/A Last intake: Intake Last Liquid Date 06/02/22 Last Liquid Time 22:00 Last Solid Date 06/01/22 Last Solid Time 17:00 Social No alcohol and No tobacco Exam alert, oriented x 3, clear to auscultation bilaterally and regular rate & rhythm Airway Mallampati: Class II Dentition: full CV/HEM Atrial Fibrillation, Coronary Artery Disease (stent 04/24), Hypertension and Myocardial Infarction cardiomyopathy V tach w'/ AICD Chronic Renal Insufficiency Metabolic Hyperlipidemia and Thyroid Disease Anesthetic Plan ASA status: 4 Anesthesia: MAC Risk of > 500 ml blood loss (7ml/kg in children): No Medications/Allergies Home Medications Medication Instructions Recorded Confirmed Last Taken Type nitroglycerin 0.4 mg sublingual 0.4 mg sublingual Q5MIN PRN Chest 04/12/21 06/03/22 Unknown History tablet Pain rosuvastatin 40 mg tablet 40 mg PO BEDTIME 04/12/21 06/03/22 06/01/22 History multivit with min-folic 1 tab PO DAILY 04/25/21 06/03/22 06/01/22 History acid-lutein 400 mcg-250 mcg chewable tablet (Centrum Silver) acetaminophen 500 mg tablet 500 mg PO Q6H PRN Pain 05/21/21 06/03/22 06/01/22 History (Tylenol Extra Strength) Thumb Spica #1 ea 02/26/22 06/01/22 Unknown Rx levothyroxine 75 mcg tablet 75 mcg PO QAM 03/02/22 06/03/22 06/02/22 History albuterol sulfate 90 mcg/actuation 2 puff inhalation Q6H PRN 03/04/22 06/03/22 06/01/22 History aerosol inhaler Shortness Of Breath apixaban 5 mg tablet (Eliquis) 5 mg PO BID@07,19 03/04/22 06/03/22 05/28/22 History metoprolol tartrate 25 mg tablet 12.5 mg PO BID #60 tabs 03/25/22 06/03/22 06/03/22 Rx lidocaine 4 % topical patch 1 patch topical DAILY PRN Pain 04/13/22 06/03/22 Unknown History (Salonpas (lidocaine)) amiodarone 200 mg tablet 200 mg PO BID #180 tabs 05/01/22 06/03/22 06/02/22 Rx clopidogrel 75 mg tablet 75 mg PO QAM #90 tabs 05/11/22 06/03/22 05/28/22 Rx bumetanide 1 mg tablet 1 mg PO BID 06/01/22 06/03/22 06/01/22 History potassium chloride 20 mEq 20 meq PO BID 06/01/22 06/03/22 06/01/22 History tablet,extended release Allergies Allergy/AdvReac Type Severity Reaction Status Date / Time JACKIE Inhibitors Allergy Unknown Unknown Verified 06/03/22 07:00 aspirin Allergy ALGY-Hives Verified 06/03/22 07:00 Latex, Natural Rubber Allergy ALGY-Rash Verified 06/03/22 07:00 Current Medications Generic Name Dose Route Start Last Admin Trade Name Freq PRN Reason Stop Dose Admin Sodium Chloride 1,000 mls @ 30 mls/hr 06/03/22 06:30 06/03/22 06:38 Sodium Chloride 0.9% IV 06/04/22 06:29 30 mls/hr .Q24H RICARDO Administration PFSH Anesthesia Medical History Acute ND Acute non-ST elevation myocardial infarction (NSTEMI) Anemia Atrial fibrillation Rate control on anticoagulation Chronic kidney disease Coronary artery disease Coronary artery disease Hyperlipidemia Hypertension Well-controlled Sustained VT (ventricular tachycardia) Continue current regimen including beta-sudhir, amiodarone. Appear to be stable not in VT anymore. Can be discharged home. Ventricular tachycardia Surgical History History of back surgery History of cardiac defibrillator placement Stented coronary artery Family History Mother No problems noted. Father No problems noted. Other CAD (coronary artery disease) Social History Smoking and tobacco status: never smoked Alcohol intake: never Adopted: No Caregiver/support person: Yes Housing: [facility] Marital status: / Current occupational status: retired History of recent travel: No Data Anesthesia Cardiac Studies: Echocardiogram 04/03/22 Echocardiogram Limited Views 04/25/21 Echocardiogram Ultrasound 08/02/20
--- NOTE | 2022-06-03 08:13 | P.HP_ITS ---
Providers/Chief Complaint Primary Care Provider: Gene Peralta Chief Complaint: D50.9 History of Present Illness Jesus Saucedo is a 86 year old male here for EGD and colonoscopy Medications/Allergies Home Medications Medication Instructions Recorded Confirmed Last Taken Type nitroglycerin 0.4 mg sublingual 0.4 mg sublingual Q5MIN PRN Chest 04/12/2106/03 Unknown History tablet Pain rosuvastatin 40 mg tablet 40 mg PO BEDTIME 04/12/21 06/03/22 06/01/22 History multivit with min-folic 1 tab PO DAILY 04/25/21 06/03/22 06/01/22 History acid-lutein 400 mcg-250 mcg chewable tablet (Centrum Silver) acetaminophen 500 mg tablet 500 mg PO Q6H PRN Pain 05/21/21 06/03/22 06/01/22 History (Tylenol Extra Strength) Thumb Spica #1 ea 02/26/22 06/01/22 Unknown Rx levothyroxine 75 mcg tablet 75 mcg PO QAM 03/02/22 06/03/22 06/02/22 History albuterol sulfate 90 mcg/actuation 2 puff inhalation Q6H PRN 03/04/22 06/03/22 06/01/22 History aerosol inhaler Shortness Of Breath apixaban 5 mg tablet (Eliquis) 5 mg PO BID@07,19 03/04/22 06/03/22 05/28/22 History metoprolol tartrate 25 mg tablet 12.5 mg PO BID #60 tabs 03/25/22 06/03/22 06/03/22 Rx lidocaine 4 % topical patch 1 patch topical DAILY PRN Pain 04/13/22 06/03/22 Unknown History (Salonpas (lidocaine)) amiodarone 200 mg tablet 200 mg PO BID #180 tabs 05/01/22 06/03/22 06/02/22 Rx clopidogrel 75 mg tablet 75 mg PO QAM #90 tabs 05/11/22 06/03/22 05/28/22 Rx bumetanide 1 mg tablet 1 mg PO BID 06/01/22 06/03/22 06/01/22 History potassium chloride 20 mEq 20 meq PO BID 06/01/22 06/03/22 06/01/22 History tablet,extended release Allergies Allergy/AdvReac Type Severity Reaction Status Date / Time JACKIE Inhibitors Allergy Unknown Unknown Verified 06/03/22 07:00 aspirin Allergy ALGY-Hives Verified 06/03/22 07:00 Latex, Natural Rubber Allergy ALGY-Rash Verified 06/03/22 07:00 PFSH Acute PFSH: Medical History Acute ME Acute non-ST elevation myocardial infarction (NSTEMI) Anemia Atrial fibrillation Rate control on anticoagulation Chronic kidney disease Coronary artery disease Coronary artery disease Hyperlipidemia Hypertension Well-controlled Sustained VT (ventricular tachycardia) Continue current regimen including beta-ashley, amiodarone. Appear to be stable not in VT anymore. Can be discharged home. Ventricular tachycardia Surgical History History of back surgery History of cardiac defibrillator placement Stented coronary artery Family History Mother No problems noted. Father No problems noted. Other CAD (coronary artery disease) Social History Smoking and tobacco status: never smoked Alcohol intake: never Adopted: No Caregiver/support person: Yes Housing: [facility] Marital status: / Current occupational status: retired History of recent travel: No Vitals/I&O/Wt Last Vital Signs Temp 97.3 F L 06/03/22 06:36 Pulse 112 H 06/03/22 06:36 Resp 16 06/03/22 06:36 BP 141/73 06/03/22 06:36 Pulse Ox 95 06/03/22 06:36 O2 Del Method 06/03/22 06:36 Weight last 48 hrs Weight 197 lb A&P Assessment and plan (1) Anemia: Plan EGD and colonoscopy Attestations Medical Necessity Statement*: Home Coding Level of Care Code Acute Customer Contact Representative for Chg Fwd Diagnoses Anemia D64.9
[2022-06-03 08:46] VITALS: BP 123/69; PULSE 56; RESP 10; TEMP 36.1; O2SAT 92
[2022-06-03 09:05] VITALS: BP 157/70; PULSE 64; RESP 16; O2SAT 97
--- NOTE | 2022-06-03 14:55 | ANE.PACU2 ---
Inpatient post-anesthesia follow up: Airway intact: Yes Vital signs: Temperature 97 F Pulse Rate 64 Respiratory Rate 16 Blood Pressure 157/70 Pulse Oximetry 97 Oxygen Delivery Me thod Room Air Oxygen Flow Rate Fraction of Inspir ed Oxygen Hydration adequate: Yes Nausea and vomiting: No Mental status: Baseline
== END 2022-06-03 09:22 | disposition home or self-care (01) ==
PROVIDERS: PCP Family Medicine; Visit Provider Surgery
PROC: 0DJ08ZZ Inspection of Upper Intestinal Tract, Via Natural or Artificial Opening Endoscopic (ICD-10-PCS; CPT 43235; principal; 2022-06-03 08:00)
PROC: 0DJD8ZZ Inspection of Lower Intestinal Tract, Via Natural or Artificial Opening Endoscopic (ICD-10-PCS; CPT 45378; 2022-06-03 08:00)
DX: D50.9 Iron deficiency anemia, unspecified (principal); K57.30 Diverticulosis of large intestine without perforation or abscess without bleeding; D12.0 Benign neoplasm of cecum; I48.91 Unspecified atrial fibrillation; I25.10 Atherosclerotic heart disease of native coronary artery without angina pectoris; Z95.5 Presence of coronary angioplasty implant and graft; I10 Essential (primary) hypertension; I25.2 Old myocardial infarction; I42.9 Cardiomyopathy, unspecified; Z79.01 Long term (current) use of anticoagulants; E78.5 Hyperlipidemia, unspecified
CPT/HCPCS: 43235; 45385; 88305; J2704; J3490; J7030

== ENCOUNTER → 2022-06-09 07:42 | Outpatient (BNVA) | payer MEDICARE, OTHER, SELFPAY | PROVIDERS: PCP Family Medicine; Visit Provider Physician Assistant | DX: Z98.1 Arthrodesis status (principal) | CPT/HCPCS: 72070; 99212 ==

== ENCOUNTER → 2022-06-16 15:57 | Outpatient (BNVA) | payer MEDICARE, OTHER, SELFPAY | PROVIDERS: PCP Family Medicine; Visit Provider Surgery | DX: Z09 Encounter for follow-up examination after completed treatment for conditions other than malignant neoplasm (principal); D12.6 Benign neoplasm of colon, unspecified | CPT/HCPCS: 99212 ==

== ENCOUNTER 2022-06-19 13:17 | Outpatient (RCR) | payer MEDICARE, OTHER, SELFPAY | END 2022-07-04 23:59 | disposition home or self-care (01) | LOC: SPT 13:17 | PROVIDERS: PCP Family Medicine; Visit Provider Physician Assistant | DX: Z98.1 Arthrodesis status (principal) | CPT/HCPCS: 97161 ==

== ENCOUNTER 2022-07-06 08:41 | Emergency (ER) | payer MEDICARE, OTHER, SELFPAY ==
[2022-07-06 08:48] VITALS: BP 158/69; PULSE 64; RESP 16; TEMP 36.8; O2SAT 96; BMI 28.3
[2022-07-06 08:54] VITALS: BP 158/69; PULSE 61; RESP 16; O2SAT 96
--- NOTE | 2022-07-06 08:54 | XRR_ITS ---
PROCEDURE INFORMATION: Exam: XR Left Shoulder Exam date and time: 07/06/2022 9:12 AM Age: 86 years old Clinical indication: Fall with blunt trauma. Pain. Left shoulder injury date: 07/05/22. TECHNIQUE: Imaging protocol: Radiologic exam of the Left shoulder. Views: 2 or more views. COMPARISON: CR XR chest 1V portable [id number] 04/03/2022 11:06 AM FINDINGS: Tubes, catheters and devices: A pacer or AICD is incompletely visualized. Bones/joints: Possible nondisplaced fracture involving the humeral head and greater tuberosity. This is poorly assessed. Possible calcific tendinosis of the left rotator cuff. 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 Bilateral spinal rods are seen. Soft tissues: No significant soft tissue swelling. XR/XR shoulder LT min 2V* [id number] IMPRESSION: 1. Possible nondisplaced fracture involving the humeral head and greater tuberosity. This is poorly assessed. Consider CT. 2. Possible calcific tendinosis of the left rotator cuff. 3. 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
--- NOTE | 2022-07-06 08:54 | XRR_ITS ---
PROCEDURE INFORMATION: Exam: XR Left Elbow Exam date and time: 07/06/2022 9:17 AM Age: 86 years old Clinical indication: Pain and injury or trauma; Fall; Blunt trauma (contusions or hematomas); Elbow; Left; Injury date: 07/05/22; Additional info: Trauma injury, get humerus between shoulder/elbow films TECHNIQUE: Imaging protocol: Radiologic exam of the Left elbow. Views: 3 or more views. COMPARISON: CR XR shoulder LT min 2V* [id number] 07/06/2022 9:12 AM FINDINGS: Bones/joints: A triceps enthesophyte is noted. No definite acute fracture is identified. Soft tissues: There is posterior soft tissue swelling. Other findings: The lateral view is poorly positioned precluding accurate assessment for effusion. XR/XR elbow LT min 3V* [id number] IMPRESSION: 1. The lateral view is poorly positioned precluding accurate assessment for effusion. 2. Posterior soft tissue swelling. 3. No definite acute fracture is seen. Consider CT if there is continued clinical concern.
--- NOTE | 2022-07-06 08:55 | ED_ITS ---
Documented by User: JACOB Parker 07/06/22 10:23 HPI - Extremity Injury (Upper) General: Chief Complaint: Extremity Injury, Upper Stated Complaint: Left Arm injury Time Seen by Provider: 07/06/22 08:42 Source: patient and family Mode of arrival: wheelchair Limitations: no limitations History of Present Illness: Patient is an 86-year-old male presents to ED today along with his caregiver for concerns of a left arm injury. Patient tells me yesterday he was in his home when he went to step and caught his foot on the lip of a concrete edge causing him to fall. He states he struck his left shoulder on a door jam before falling directly onto it. He was able to move the extremity after the injury but states throughout the evening and into this morning pain has increased. He has noticed swelling to the lower portion of his upper arm and elbow. He did sustain skin tears just distal to the elbow. These have been dressed by his caregiver. Patient denies striking his head or LOC. He does not complain of neck or back pain. He has been ambulatory since the fall without assistance and does not complain of any lower extremity discomfort. Caregiver is also requesting a CXR as patient has had a cough for the last several days. No fevers. He does have history of CHF and takes Bumex. His lower extremity swelling is at baseline and he does not complain of SOB. He is not complaining of PND or orthopnea. Lifter is Dr. Ibraham. TELLO complaint: injury to: left, shoulder and elbow Other injuries: none Place: home Severity: moderate Relieving factors: immobilization Exacerbating factors: movement of extremity Context: fall Associated symptoms: Reports no associated symptoms; Denies neck pain or weakness in extremities Treatments prior to arrival: bandage Review of Systems Const: Denies: fever(s), chills, body aches, fatigue or malaise ENMT: Denies: throat pain, odynophagia, ear or mastoid pain, nasal congestion or post nasal drip Card: Reports: edema (chronic-at baseline) and swelling of feet/ankles (chronic-at baseline); Denies: chest pain, palpitations, irregular heart rhythm, lightheadedness, syncope, pre-syncope or orthopnea Resp: Reports: non-productive cough; Denies: dyspnea, wheezing, hemoptysis or chest congestion GI: Denies: abdominal pain Musc: Reports: joint pain (L shoulder, L elbow) and joint swelling (L elbow); Denies: neck pain or back pain Skin/Breast: Reports: other (skin tear near L elbow) Neuro: Denies: headache(s), numbness in extremities, weakness in extremities or sensory changes [facility] ED PFSH: Medical History Acute CO Acute non-ST elevation myocardial infarction (NSTEMI) Anemia Atrial fibrillation Rate control on anticoagulation Chronic kidney disease Coronary artery disease Coronary artery disease Hyperlipidemia Hypertension Well-controlled Sustained VT (ventricular tachycardia) Continue current regimen including beta-ashley, amiodarone. Appear to be stable not in VT anymore. Can be discharged home. Tubular adenoma of colon Ventricular tachycardia Surgical History History of back surgery History of cardiac defibrillator placement Stented coronary artery Family History Mother No problems noted. Father No problems noted. Other CAD (coronary artery disease) Social History Smoking and tobacco status: never smoked Alcohol intake: never Adopted: No Caregiver/support person: Yes Housing: Retirement Marital status: / Current occupational status: retired History of recent travel: No Physical Exam Const: COMMON NORMALS: no acute distress, average body habitus, patient oriented x3, no limitations, healthy appearing, alert and well nourished GENERAL APPEARANCE: cooperative ORIENTATION/CONSCIOUSNESS: Yes awake, Yes oriented to person, Yes oriented to place and Yes oriented to time HENMT: COMMON NORMALS: normocephalic and atraumatic HEAD & SCALP: normal to inspection, normocephalic and atraumatic Neck/C-Spine: COMMON NORMALS: full ROM GENERAL: Yes normal visual inspection CERVICAL SPINE: Yes cervical ROM normal, No pain with cervical ROM, No Cervical spine tenderness and No step off deformity Chest: COMMONS NORMALS: normal inspection of the chest and normal palpation of entire chest wall Resp: COMMON NORMALS: normal respiratory effort and clear to auscultation bilaterally AUSCULTATION: clear to auscultation bilaterally Cardio: COMMON NORMALS: regular rate and regular rhythm RATE: regular rate RHYTHM: regular rhythm GI: COMMON NORMALS: Normal to inspection, nondistended, normoactive bowel sounds present, Soft to palpation and non-tender PALPATION: Yes Soft to palpation Back/Pelvis: COMMON NORMALS: thoracic and lumbar spine normal to inspection, no thoracic nor lumbar tenderness and thoraco-lumbar ROM normal Extremity: COMMON NORMALS: capillary refill normal GENERAL: Yes normal exam except as noted LEFT UPPER EXTREMITY: Yes shoulder joint, Yes upper arm and Yes elbow joint OTHER: pt has pain throughout his L shoulder and is unwilling to move shoulder much due to discomfort; I do not appreciate any dislocation; he does have notable swelling distally-just proximal to elbow and throughout elbow joint-he does complain of pain here as well and is unwilling to perform any ROM here either; he has several skin tears just distal to elbow that have been dressed appropriately with no active bleeding; distal pulses/cap refill are normal and sensation appears intact; he is able to extend/flex wrist and wiggle/move all fingers Neuro: SADE COMA SCALE: document GCS findings Sade coma scale eye opening: Spontaneous [employer] coma scale verbal response: Orientated Sade coma scale motor response: Obey commands [employer] coma scale total score: 15 COMMON NORMALS: patient oriented x3, no focal motor deficits and no sensory deficits noted SENSORIUM/ORIENTATION: Yes alert, Yes oriented to person, Yes oriented to place and Yes oriented to time Skin: TRAUMA: other (skin tear just distal to L elbow) Course Vital Signs: Vital signs: Vital Signs Temperature 98.2 F 07/06/22 08:48 Pulse Rate 53 L 07/06/22 11:18 Respiratory Rate 16 07/06/22 11:18 Blood Pressure 159/79 07/06/22 11:18 Pulse Oximetry 94 07/06/22 11:18 Oxygen Delivery Me thod 07/06/22 10:03 MDM - Extremity Injury (Upper) Medical Decision Making Patient with a probable fracture involving his humeral head. He was also found to have incidental nodules on his CXR. I will order patient CT of his left shoulder without contrast and have him follow-up with orthopedics. He will be placed in a sling. I will also order him a CT scan with contrast of his chest and have him follow-up with pulmonology. Patient was discussed with Dr. Nowka who agrees with care plan for patient. Lab Data Radiology Impressions Elbow X-Ray 07/06/22 08:54 IMPRESSION: 1. The lateral view is poorly positioned precluding accurate assessment for effusion. 2. Posterior soft tissue swelling. 3. No definite acute fracture is seen. Consider CT if there is continued clinical concern. Shoulder X-Ray 07/06/22 08:54 IMPRESSION: 1. Possible nondisplaced fracture involving the humeral head and greater tuberosity. This is poorly assessed. Consider CT. 2. Possible calcific tendinosis of the left rotator cuff. 3. 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 Chest X-Ray 07/06/22 08:55 IMPRESSION: 1. Possible small clustered nodules in the mid to lower right chest. Recommend CT chest to better characterize. 2. There is mild peribronchial wall thickening; query viral infection/bronchitis, chronic bronchitis and/or asthma. Discharge Plan Discharge Patient Disposition: Home Clinical Impression: Incidental lung nodule Closed fracture of head of left humerus Qualifiers: Encounter type: initial encounter Qualified Code(s): S42.292A - Other displaced fracture of upper end of left humerus, initial encounter for closed fracture Skin tear of left elbow without complication Qualifiers: Encounter type: initial encounter Qualified Code(s): S51.012A - Laceration without foreign body of left elbow, initial encounter Condition: Stable Prescriptions: New hydrocodone-acetaminophen 5-325 mg tablet 1 tab PO Q6H PRN (Reason: pain) Qty: 14 0RF No Action acetaminophen [Tylenol Extra Strength] 500 mg tablet 500 mg PO Q6H PRN (Reason: Pain) metoprolol tartrate 25 mg tablet 12.5 mg PO BID Qty: 60 3RF amiodarone 200 mg tablet 200 mg PO BID Qty: 180 0RF lidocaine [Salonpas (lidocaine)] 4 % adhesive patch,medicated 1 patch topical DAILY PRN (Reason: Pain) (DME) Thumb Spica See Rx Instructions .Route .MEDSUPPLY Qty: 1 0RF Rx Instructions: As directed. clopidogrel 75 mg tablet 75 mg PO QAM Qty: 90 3RF Hold Instructions: Resume on 06/06/22. nitroglycerin 0.4 mg tablet, sublingual 0.4 mg sublingual Q5MIN PRN (Reason: Chest Pain) rosuvastatin 40 mg tablet 40 mg PO BEDTIME Centrum Silver 400-250 mcg Tablet,Chewable 1 tab PO DAILY levothyroxine 75 mcg tablet 75 mcg PO QAM hydrocodone-acetaminophen 5-325 mg tablet 1 tab PO Q6H albuterol sulfate 90 mcg/actuation HFA aerosol inhaler 2 puff INHALATION Q6H PRN (Reason: Shortness Of Breath) Eliquis 5 mg tablet 5 mg PO BID@07,19 Hold Instructions: Resume on 06/06/22. bumetanide 1 mg tablet 1 mg PO BID potassium chloride 20 mEq tablet extended release 20 meq PO BID Discharge Orders: Discharge ED (Routine); Ordered 07/06/22 Ordered By: Angelina Guevara Referrals: Gene Peralta [Primary Care Provider] - Patient Instructions: Opioid Safety, Pain Management Activity Restrictions/Additional Instructions: As we discussed case management should contact you to set you up with your follow-up appointments with orthopedics for your probable humeral head fracture and pulmonology for your incidental right lung nodules that were found today. Central scheduling should be contacting you for CT imaging. Coding Level of Care Code ED News Videotape Editor for Chg Fwd Exam Comprehensive Documented by User: Jayant Nowak DO 07/06/22 13:51 HPI - Extremity Injury (Upper) General: Chief Complaint: Extremity Injury, Upper Stated Complaint: Left Arm injury Time Seen by Provider: 07/06/22 08:42 [facility] ED PFSH: Medical History Acute CO Acute non-ST elevation myocardial infarction (NSTEMI) Anemia Atrial fibrillation Rate control on anticoagulation Chronic kidney disease Coronary artery disease Coronary artery disease Hyperlipidemia Hypertension Well-controlled Sustained VT (ventricular tachycardia) Continue current regimen including beta-ashley, amiodarone. Appear to be stable not in VT anymore. Can be discharged home. Tubular adenoma of colon Ventricular tachycardia Surgical History History of back surgery History of cardiac defibrillator placement Stented coronary artery Family History Mother No problems noted. Father No problems noted. Other CAD (coronary artery disease) Social History Smoking and tobacco status: never smoked Alcohol intake: never Adopted: No Caregiver/support person: Yes Housing: Retirement Marital status: / Current occupational status: retired History of recent travel: No Physical Exam Neuro: SADE COMA SCALE: document GCS findings [employer] coma scale total score: 15 Course Vital Signs: Vital signs: Vital Signs Temperature 98.2 F 07/06/22 08:48 Pulse Rate 53 L 07/06/22 11:18 Respiratory Rate 16 07/06/22 11:18 Blood Pressure 159/79 07/06/22 11:18 Pulse Oximetry 94 07/06/22 11:18 Oxygen Delivery Me thod 07/06/22 10:03 MDM - Extremity Injury (Upper) Medical Decision Making Patient with a probable fracture involving his humeral head. He was also found to have incidental nodules on his CXR. I will order patient CT of his left shoulder without contrast and have him follow-up with orthopedics. He will be placed in a sling. I will also order him a CT scan with contrast of his chest and have him follow-up with pulmonology. Patient was discussed with Dr. Nowak who agrees with care plan for patient. Chart reviewed and patient discussed with midlevel. Agree with assessment and plan. Lab Data Radiology Impressions Elbow X-Ray 07/06/22 08:54 IMPRESSION: 1. The lateral view is poorly positioned precluding accurate assessment for effusion. 2. Posterior soft tissue swelling. 3. No definite acute fracture is seen. Consider CT if there is continued clinical concern. Shoulder X-Ray 07/06/22 08:54 IMPRESSION: 1. Possible nondisplaced fracture involving the humeral head and greater tuberosity. This is poorly assessed. Consider CT. 2. Possible calcific tendinosis of the left rotator cuff. 3. 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 Chest X-Ray 07/06/22 08:55 IMPRESSION: 1. Possible small clustered nodules in the mid to lower right chest. Recommend CT chest to better characterize. 2. There is mild peribronchial wall thickening; query viral infection/bronchitis, chronic bronchitis and/or asthma. Discharge Plan Discharge Patient Disposition: Home Clinical Impression: Incidental lung nodule Closed fracture of head of left humerus Qualifiers: Encounter type: initial encounter Qualified Code(s): S42.292A - Other displaced fracture of upper end of left humerus, initial encounter for closed fracture Skin tear of left elbow without complication Qualifiers: Encounter type: initial encounter Qualified Code(s): S51.012A - Laceration without foreign body of left elbow, initial encounter Condition: Stable Prescriptions: New hydrocodone-acetaminophen 5-325 mg tablet 1 tab PO Q6H PRN (Reason: pain) Qty: 14 0RF No Action acetaminophen [Tylenol Extra Strength] 500 mg tablet 500 mg PO Q6H PRN (Reason: Pain) metoprolol tartrate 25 mg tablet 12.5 mg PO BID Qty: 60 3RF amiodarone 200 mg tablet 200 mg PO BID Qty: 180 0RF lidocaine [Salonpas (lidocaine)] 4 % adhesive patch,medicated 1 patch topical DAILY PRN (Reason: Pain) (DME) Thumb Spica See Rx Instructions .Route .MEDSUPPLY Qty: 1 0RF Rx Instructions: As directed. clopidogrel 75 mg tablet 75 mg PO QAM Qty: 90 3RF Hold Instructions: Resume on 06/06/22. nitroglycerin 0.4 mg tablet, sublingual 0.4 mg sublingual Q5MIN PRN (Reason: Chest Pain) rosuvastatin 40 mg tablet 40 mg PO BEDTIME Centrum Silver 400-250 mcg Tablet,Chewable 1 tab PO DAILY levothyroxine 75 mcg tablet 75 mcg PO QAM hydrocodone-acetaminophen 5-325 mg tablet 1 tab PO Q6H albuterol sulfate 90 mcg/actuation HFA aerosol inhaler 2 puff INHALATION Q6H PRN (Reason: Shortness Of Breath) Eliquis 5 mg tablet 5 mg PO BID@, Hold Instructions: Resume on 06/06/22. bumetanide 1 mg tablet 1 mg PO BID potassium chloride 20 mEq tablet extended release 20 meq PO BID Discharge Orders: Discharge ED (Routine); Ordered 07/06/22 Ordered By: Angelina Guevara Referrals: Gene Peralta [Primary Care Provider] - Patient Instructions: Opioid Safety, Pain Management Activity Restrictions/Additional Instructions: As we discussed case management should contact you to set you up with your follow-up appointments with orthopedics for your probable humeral head fracture and pulmonology for your incidental right lung nodules that were found today. Central scheduling should be contacting you for CT imaging. Coding Level of Care Code ED News Videotape Editor for Chg Fwd Exam Comprehensive
--- NOTE | 2022-07-06 08:55 | XRR_ITS ---
PROCEDURE INFORMATION: Exam: XR Chest Exam date and time: 07/06/2022 9:22 AM Age: 86 years old Clinical indication: Cough; Prior surgery TECHNIQUE: Imaging protocol: Radiologic exam of the chest. Views: 1 view. COMPARISON: CR XR chest 1V portable [id number] 04/03/2022 11:06 AM FINDINGS: Tubes, catheters and devices: A left subclavian AICD is noted. Lungs: There is mild peribronchial wall thickening. Subsegmental atelectasis or scarring at the left base. Pleural spaces: No pleural effusion. No pneumothorax. Heart/Mediastinum: The cardiac silhouette is approximately unchanged. No gross evidence of pneumomediastinum. Bones/joints: Bilateral spinal rods are seen. No gross fracture. Soft tissues: Possible small clustered nodules in the mid to lower right chest. XR/XR chest 1V portable [id number] IMPRESSION: 1. Possible small clustered nodules in the mid to lower right chest. Recommend CT chest to better characterize. 2. There is mild peribronchial wall thickening; query viral infection/bronchitis, chronic bronchitis and/or asthma.
[2022-07-06 10:03] VITALS: BP 159/79; PULSE 53; RESP 16; O2SAT 94
--- NOTE | 2022-07-06 11:16 | PC.NURSE ---
Pt left without Rx arm sling as the ER was out of arm slings and Cartographic Designer was unable to locate one. Pt states that he has an arm sling at home. Provider Fermin Guevara was informed and was agreeable to letting the pt leave to home and applying home arm sling.
[2022-07-06 11:18] VITALS: BP 159/79; PULSE 53; RESP 16; O2SAT 94
--- NOTE | 2022-07-07 09:51 | DCPLANNER ---
Addendum entered by Caprice Mcgee 09/17/22 17:25: the CT for the shoulder was cancelled Addendum entered by Caprice Mcgee 07/15/22 10:57: Patient had a follow up appointment scheduled with ortho - patient did attend appointment. Addendum entered by Caprice Mcgee 07/08/22 14:02: Patient has a follow up appointment scheduled for Sunday, July 10, 2022 at 11:[address] Forbes at ortho. Clinic will call patient with appointment information. Original Note: business segment manager had message to schedule a follow up appointment for patient with ortho. business segment manager sent patients information to the front office staff at ortho. Patients information will be printed and reviewed. Clinic will call patient with appointment information. business segment manager also had message to schedule an outpatient CT of patients left shoulder. business segment manager faxed signed order to centralized scheduling, who will call patient with appointment information.
--- NOTE | 2022-07-07 10:11 | DCPLANNER ---
Addendum entered by Caprice Mcgee 10/07/22 09:03: Patient had an appointment scheduled for a chest CT - patient did attend appointment Addendum entered by Caprice Mcgee 09/17/22 17:23: Patient has an appointment scheduled for September at 10:[address] Addendum entered by Caprice Mcgee 09/17/22 17:23: Patient had an appointment with pulmonology - patient did attend appointment Addendum entered by Caprice Mcgee 07/08/22 14:05: Patient has a follow up appointment scheduled for Friday, September 09, 2022 at 3:[address] Fonseca at [facility]. Clinic will call patient with appointment information. Addendum entered by aCprice Mcgee 07/08/22 14:05: financial sales manager received the following message from [facility] regarding follow up appointment: Patient scheduled for 09.09.22 @ 2:45 - Patient is aware, thank you On 07/07/22 @ 16:19 Faina Beard Wrote To [facility] Front Office Attempted to call patient - no voicemail option On 07/07/22 @ 16:00 Romina Horton Wrote To [facility] Front Office please schedule for first available new pt appt. thank you On 07/07/22 @ 12:50 Juan Gillis Wrote To Romina Horton For now give him first available appointment. We will wait for CT chest and if there is any concerning lesion we we will try to see him sooner On 07/07/22 @ 12:23 Romina Horton Wrote To Juan Gillis 07/06/22 cxr: 1. Possible small clustered nodules in the mid to lower right chest. Recommend CT chest to better characterize. 2. There is mild peribronchial wall thickening; query viral infection/bronchitis, chronic bronchitis and/or asthma. On 07/07/22 @ 10:15 Faina Beard Wrote To Dr. Gillis Clinical Please review and decide where to schedule, thank you Original Note: financial sales manager had message to schedule a follow up appointment for patient with pulmonology. financial sales manager sent patients information to the front office staff at [facility]. Patients information will be printed and reviewed. Clinic will call patient with appointment information.
== END 2022-07-06 11:28 | disposition home or self-care (01) ==
PROVIDERS: Emergency Provider Physician Assistant; PCP Family Medicine
DX: S42.292A Other displaced fracture of upper end of left humerus, initial encounter for closed fracture (principal); S51.012A Laceration without foreign body of left elbow, initial encounter; R91.1 Solitary pulmonary nodule; Z79.01 Long term (current) use of anticoagulants; Z79.02 Long term (current) use of antithrombotics/antiplatelets; I25.2 Old myocardial infarction; I25.10 Atherosclerotic heart disease of native coronary artery without angina pectoris; I12.9 Hypertensive chronic kidney disease with stage 1 through stage 4 chronic kidney disease, or unspecified chronic kidney disease; N18.9 Chronic kidney disease, unspecified; Z95.810 Presence of automatic (implantable) cardiac defibrillator; W18.09XA Striking against other object with subsequent fall, initial encounter
CPT/HCPCS: 71045; 73030; 73080; 99283

== ENCOUNTER 2022-07-10 11:04 | Inpatient (IN) | payer MEDICARE, OTHER, SELFPAY ==
[2022-07-10] VITALS (35 sets, daily range): BP systolic 97–158; BP diastolic 61–101; PULSE 0–133; RESP 14–27; TEMP 36.2–37.3; O2SAT 94–100; BMI 28.3; BMI 29.4
--- NOTE | 2022-07-10 11:46 | XR_ITS ---
WS: [id number] Portable AP upright chest, 07/10/2022 Clinical Data: dyspnea/cough Comparison: Portable chest, 07/06/2022 Findings: No nodules or masses are seen. There may be small bilateral pleural effusions. The heart is enlarged. The heart is normal. The pulmonary vascularity is not increased. No pneumonia or pneumotho rax is seen. The aortic arch and descending thoracic aorta show mild tortuosity. There is a permanent pacemaker in position unchanged. The patient has had posterior thoracic fusion with bilateral pedicl e screws and connecting rods. There are monitor leads on the chest wall. XR/XR chest 1V portable [id number] Impression: 1. No change in cardiomegaly, atherosclerosis and permanent pacemaker. 2. Small bilateral pleural effusions.
--- NOTE | 2022-07-10 11:46 | W.ED.RECABL ---
HPI - Recheck/Abnormal Lab/Rx General: Chief Complaint: Recheck/Abnormal Lab/Rx Stated Complaint: sent for blood transfusion Time Seen by Provider: 07/10/22 11:45 Source: patient Mode of arrival: ambulatory History of Present Illness: 86-year-old male presents to the emergency room with complaints of anemia. He was seen yesterday at the doctor's office for cough blood work was done he was contacted today with a report of a hemoglobin of 5.7 he was told to come in for blood transfusion he has not noticed any dark black tarry stools or kalie blood in the stool no hematuria no hematemesis or coffee-ground emesis. He is on Eliquis. He is also on clopidogrel. He had a recent injury to his left shoulder when he tripped over a step his left arm is in a sling at this time. He denies any chest pain. He has significant swelling in his legs although he states that that is chronic. He is not particularly had any orthopnea recently. MD complaint: abnormal lab Initial visit (ago): day(s) (1) Context: called for abnormal lab result Associated symptoms: shortness of breath Review of Systems Const: Denies: fever(s), chills, body aches, change in appetite, fatigue or malaise ENMT: Denies: throat pain, ear or mastoid pain, nasal discharge or nasal congestion Card: Reports: dyspnea on exertion; Denies: chest pain, palpitations, irregular heart rhythm, edema or orthopnea Resp: Reports: dyspnea and non-productive cough; Denies: productive cough GI: Denies: abdominal pain, nausea, vomiting, hematemesis, coffee ground emesis, diarrhea, constipation, bloating, hematochezia or melena : Denies: flank pain, dysuria, urinary frequency or urinary urgency Skin/Breast: Denies: rash or pruritus PFSH ED PFSH: Medical History Acute diastolic (congestive) heart failure Acute [place] Acute non-ST elevation myocardial infarction (NSTEMI) Acute on chronic systolic heart failure Anemia Anemia Atherosclerosis of coronary artery of [place] heart without angina pectoris Atrial fibrillation Rate control on anticoagulation Cardiomyopathy History of ischemic cardiomyopathy, do not need revascularization, continue optimal medical regimen Chronic kidney disease Coronary artery disease Coronary artery disease Hyperlipidemia Hypertension Well-controlled Sustained VT (ventricular tachycardia) Continue current regimen including beta-ashley, amiodarone. Appear to be stable not in VT anymore. Can be discharged home. Tubular adenoma of colon Ventricular tachycardia Ventricular tachycardia Wide-complex tachycardia Surgical History History of back surgery History of cardiac defibrillator placement Stented coronary artery Family History Mother No problems noted. Father No problems noted. Other CAD (coronary artery disease) Social History Smoking and tobacco status: never smoked Alcohol intake: never Adopted: No Caregiver/support person: Yes Housing: Half-Way Marital status: / Current occupational status: retired History of recent travel: No Physical Exam Const: GENERAL APPEARANCE: cooperative and comfortable ORIENTATION/CONSCIOUSNESS: Yes awake, Yes oriented to person, Yes oriented to place and Yes oriented to time HENMT: COMMON NORMALS: normocephalic, atraumatic and hearing grossly normal bilaterally HEAD & SCALP: normocephalic and atraumatic Resp: COMMON NORMALS: normal respiratory effort, No retractions and No use of accessory muscles AUSCULTATION: crackles Cardio: COMMON NORMALS: regular rate, regular rhythm and No murmurs present (Cardio) RATE: regular rate RHYTHM: regular rhythm GI: COMMON NORMALS: Soft to palpation and No hepatosplenomegaly present AUSCULTATION: Yes normoactive bowel sounds PALPATION: Yes Soft to palpation, No Tenderness to palpation present (GI), No Guarding due to palpation present (GI) and Yes No hepatosplenomegaly present Extremity: COMMON NORMALS: normal to inspection, capillary refill normal and no calf tenderness GENERAL: Yes edema (3+ edema lower extremities) Neuro: SENSORIUM/ORIENTATION: Yes oriented to person, Yes oriented to place and Yes oriented to time Skin: COMMON NORMALS: no rashes or lesions noted GENERAL SKIN EXAM: no rashes or lesions noted Course Vital Signs: Vital signs: Vital Signs Temperature 98.0 F 07/11/22 16:58 Pulse Rate 50 L 07/11/22 16:58 Respiratory Rate 19 H 07/11/22 16:58 Blood Pressure 128/54 07/11/22 16:58 Pulse Oximetry 97 01/07/23 16:58 Oxygen Delivery Me thod 07/11/22 16:00 MDM - Recheck/Abnormal Lab/Rx Medical Decision Making Patient is significantly anemic. He developed sustained ventricular tachycardia. His ICD did not discharge to terminate it spontaneously terminated a couple of times and then other times remained persistent. We were about to sedate the patient and perform synchronized cardioversion when he spontaneously converted we have started him on amiodarone. Blood has begun discussed with hospitalist will consult cardiology. Orders have been written for admission. Medical Records I reviewed the patient's medical records. Lab Data I reviewed the patient's lab results. 07/10/22 12:07 Radiology Impressions Chest X-Ray 07/10/22 11:46 Impression: 1. No change in cardiomegaly, atherosclerosis and permanent pacemaker. 2. Small bilateral pleural effusions. Abdomen/Pelvis CT 07/10/22 15:01 IMPRESSION: 1. No acute findings within the abdomen or pelvis. 2. Colonic diverticulosis. No evidence of acute diverticulitis. 3. Cardiomegaly with interval development of small bibasilar pleural effusions and mild anasarca suggesting CHF/volume overload. 4. Additional nonemergent findings as above. Laboratory Results WBC 6.2 10^3/uL (4.0-10.0) 07/10/22 12:07 RBC 2.58 10^6/uL (4.1-5.3) L 07/10/22 12:07 Hgb 6.0 g/dL (11.7-16.6) L* 07/10/22 12:07 Hct 21.7 % (42.0-52.0) L 07/10/22 12:07 MCV 84.1 fl (80-94) 07/10/22 12:07 MCH 23.3 pg (28.0-34.0) L 07/10/22 12:07 MCHC 27.6 g/dL (30.0-36.0) L 07/10/22 12:07 RDW 17.3 % (12.1-15.1) H 07/10/22 12:07 Plt Count 275 10^3/cmm (130-400) 07/10/22 12:07 MPV 10.2 fL (7.4-10.4) 07/10/22 12:07 Neut % (Auto) 76.6 % 07/10/22 12:07 Lymph % (Auto) 16.2 % 07/10/22 12:07 [place] % (Auto) 6.4 % 07/10/22 12:07 Eos % (Auto) 0.2 % 07/10/22 12:07 Baso % (Auto) 0.3 % 07/10/22 12:07 Neut # (Auto) 4.78 10^3/uL (1.8-7.7) 07/10/22 12:07 Lymph # (Auto) 1.0 10^3/uL (0.8-4.8) 07/10/22 12:07 [place] # (Auto) 0.4 10^3/uL (0.2-0.9) 07/10/22 12:07 Eos # (Auto) 0.0 10^3/uL (0.0-0.8) 07/10/22 12:07 Baso # (Auto) 0.0 10^3/uL (0.0-0.1) 07/10/22 12:07 Nucleated RBC % (auto) 0.5 % 07/10/22 12:07 Nucleated RBCs # 0.0 /100WBC 07/10/22 12:07 PT 19.30 SECONDS (12.1-14.9) H 07/10/22 12:07 INR 1.59 (0.8-1.2) H 07/10/22 12:07 APTT 37.9 SECONDS (23.9-36.7) H 07/10/22 12:07 Sodium 133 mmol/L (136-145) L 07/10/22 12:07 Potassium 4.0 mmol/L (3.5-5.1) 07/10/22 12:07 Chloride 103 mmol/L (98-107) 07/10/22 12:07 Carbon Dioxide 21 mmol/L (22-29) L 07/10/22 12:07 Anion Gap 13.0 (5-19) 07/10/22 12:07 BUN 12 mg/dL (8-23) 07/10/22 12:07 Creatinine 1.0 mg/dL (0.7-1.2) 07/10/22 12:07 GFR Calculation Not Reportable 07/10/22 12:07 Glucose 103 mg/dL (65-115) 07/10/22 12:07 Calculated Osmolality 276 mOsm/kg (285-295) L 07/10/22 12:07 Calcium 8.5 mg/dL (8.5-10.5) 07/10/22 12:07 Magnesium 2.0 mg/dL (1.7-2.3) 07/10/22 12:07 Iron 16 ug/dL (59-158) L 07/10/22 12:07 TIBC 377 mcg/dl 07/10/22 12:07 % Saturation 4.2 % (20-50) L 07/10/22 12:07 Unsat Iron Binding 361 ug/dL (112-347) H 07/10/22 12:07 Ferritin 30 ng/mL (30-400) 07/10/22 12:07 Total Bilirubin 0.5 mg/dL (0.15-1.2) 07/10/22 12:07 AST 19 U/L (0-40) 07/10/22 12:07 ALT 13 U/L (0-41) 07/10/22 12:07 Alkaline Phosphatase 94 U/L (40-130) 07/10/22 12:07 Total Protein 6.9 g/dL (6.6-8.7) 07/10/22 12:07 Albumin 3.4 g/dL (3.5-5.2) L 07/10/22 12:07 Globulin 3.5 g/dL (1.3-4.6) 07/10/22 12:07 Blood Type A Positive 07/10/22 12:07 Rho(D) Type Positive 07/10/22 12:07 Antibody Screen Negative 07/10/22 12:07 Crossmatch See Detail 07/10/22 12:07 Critical Care Time Critical Care Time: Critical Care Time: Yes Total Critical Care Time: 45 Attestation: The high probability of a clinically significant, sudden or life threatening deterioration of the patient's cardiovascular system(s) required my full and direct attention, intervention and personal management. The critical care time is as shown. This time is in addition to time spent performing any reported procedures but includes the following: [x] Data and vital sign review and interpretation [x] Patient assessment, examination and intervention [x] Documentation [x] Medication orders and management Discharge Plan Discharge Patient Disposition: Admitted As Inpatient Admit Provider: Emmanuel Villarreal Clinical Impression: Anemia, Coronary artery disease, Status post implantation of automatic cardioverter/defibrillator (AICD), Chronic kidney disease, Non-sustained ventricular tachycardia, Acute on chronic diastolic (congestive) heart failure Condition: Stable Coding Level of Care Code ED Supervisor Smoke Control for Chg Fwd Exam Detailed
--- NOTE | 2022-07-10 12:00 | ECG_ITS ---
[facility] Test Date: 2022-07-10 Pat Name: Jesus Saucedo Department: Room: Gender: Male Director Of Marketing Communications: : 1935 Requested By: Jayant Leavitt Order Number: [id number] Anders MD: Carrie Dallas M.D. Measurements Intervals [place] Rate: 74 P: 68 SD: 296 QRS: 32 QRSD: 121 T: 28 QT: 454 QTc: 506 Interpretive Statements SINUS RHYTHM WITH FIRST DEGREE AV BLOCK MODERATE INTRAVENTRICULAR CONDUCTION DELAY [110+ ms QRS DURATION] ST DEVIATION AND MODERATE T-WAVE ABNORMALITY, CONSIDER LATERAL ISCHEMIA [-0.1+ mV T-WAVE IN I/aVL/V5/V6] Compared to ECG 04/03/2022 12:56:18 T-wave abnormality now present Possible ischemia now present Electronically Signed On 07-10-2022 16:50:17 BRUSHING MACHINE OPERATOR by Carrie Dallas M.D. [id number]
[2022-07-10 12:24] LABS: Basophils % 0.3 %; Eosinophils % 0.2 %; Hematocrit 21.7 % (42.0-52.0); Lymphocytes % 16.2 %; Mean Corpuscular HGB Conc 27.6 g/dL (30.0-36.0); Mean Corpuscular Hemoglobin 23.3 pg (28.0-34.0); Mean Corpuscular Volume 84.1 fl (80-94); Mean Platelet Volume 10.2 fL (7.4-10.4); Monocytes # 0.4 10^3/uL (0.2-0.9); Monocytes % 6.4 %; Neutrophils # 4.78 10^3/uL (1.8-7.7); Neutrophils % 76.6 %; Nucleated Red Blood Cells % 0.5 %; Platelet Count 275 10^3/cmm (130-400); Red Blood Count 2.58 10^6/uL (4.1-5.3); Red Cell Distribution Width 17.3 % (12.1-15.1); White Blood Count 6.2 10^3/uL (4.0-10.0)
[2022-07-10 12:49] LABS: Alanine Aminotransferase 13 U/L (0-41); Albumin Level 3.4 g/dL (3.5-5.2); Alkaline Phosphatase 94 U/L (40-130); Aspartate Amino Transferase 19 U/L (0-40); Blood Urea Nitrogen 12 mg/dL (8-23); Calcium 8.5 mg/dL (8.5-10.5); Carbon Dioxide 21 mmol/L (22-29); Chloride 103 mmol/L (98-107); Globulin 3.5 g/dL (1.3-4.6); Glucose 103 mg/dL (65-115); Osmolality Calculated 276 mOsm/kg (285-295); Sodium 133 mmol/L (136-145); Total Bilirubin 0.5 mg/dL (0.15-1.2); Total Protein 6.9 g/dL (6.6-8.7)
[2022-07-10 12:54] LABS: INR 1.59 (0.8-1.2); Partial Thromboplastin Time 37.9 SECONDS (23.9-36.7)
[2022-07-10] MEDS: amiodarone 50 mg/mL SDV 3 mL 150 MG IVP (13:06)
--- NOTE | 2022-07-10 13:29 | PM.HP ---
Providers/Chief Complaint Admitting Physician: Emmanuel Villarreal MD, Hospitalist Primary Care Provider: Gene Peralta Chief Complaint: sent for blood transfusion History of Present Illness Jesus Saucedo is a 86 year old male with an extensive past medical history of coronary disease as well as ventricular tachycardia who presented to the emergency department after call from his primary care provider about hemoglobin being 5.7. Patient has been swollen lately, short of breath. He has not noticed any blood in his stool, had any black or tarry stools, had any nosebleeds or any other blood loss he is aware of. He has been anemic before, and intermittently required transfusion. He has not been ill lately with any fevers, cough. Last coronary intervention according to family has been over a year ago. He is anticoagulated with Eliquis, and also on Plavix. Recently had an EGD and colonoscopy June 03, with no active bleeding. Some colonic polyps were found which were removed. Diverticuli were identified. While in the emergency department he developed ventricular tachycardia, initially nonsustained with approximately 10 beats within sustained. He required infusion of amiodarone, and ultimately converted back to sinus rhythm. It was not evident in reviewing his telemetry that his defibrillator fired. Review of Systems General: Denies: 10 or more systems reviewed and unremarkable except in HPI and below Const: Denies: fever(s) or chills Eyes: Denies: change in vision ENMT: Denies: throat pain Card: Reports: chest pain, palpitations and swelling of feet/ankles Resp: Reports: dyspnea GI: Denies: abdominal pain, nausea, vomiting, hematochezia or melena : Denies: flank pain Musc: Denies: neck pain Skin/Breast: Denies: rash Neuro: Denies: headache(s) Psych: Denies: anxiety or depression Endo: Denies: polyuria [place]/Lymph: Denies: easy bruising All/Imm: Denies: urticaria Medications/Allergies Home Medications Medication Instructions Recorded Confirmed Last Taken Type nitroglycerin 0.4 mg sublingual 0.4 mg sublingual Q5MIN PRN Chest 04/12/21 07/10/22 Unknown History tablet Pain rosuvastatin 40 mg tablet 40 mg PO BEDTIME 04/12/21 07/10/22 07/09/22 History multivit with min-folic 1 tab PO DAILY 04/25/21 07/10/22 07/10/22 History acid-lutein 400 mcg-250 mcg chewable tablet (Centrum Silver) acetaminophen 500 mg tablet 500 mg PO Q6H PRN Pain 05/21/21 07/10/22 06/01/22 History (Tylenol Extra Strength) Thumb Spica #1 ea 02/26/22 07/10/22 Unknown Rx levothyroxine 75 mcg tablet 75 mcg PO QAM 03/02/22 07/10/22 07/10/22 History albuterol sulfate 90 mcg/actuation 2 puff inhalation Q6H PRN 03/04/22 07/10/22 06/01/22 History aerosol inhaler Shortness Of Breath metoprolol tartrate 25 mg tablet 12.5 mg PO BID #60 tabs 03/25/22 07/10/22 07/10/22 Rx lidocaine 4 % topical patch 1 patch topical DAILY PRN Pain 04/13/22 07/10/22 Unknown History (Salonpas (lidocaine)) amiodarone 200 mg tablet 200 mg PO BID #180 tabs 05/01/22 07/10/22 07/10/22 Rx clopidogrel 75 mg tablet 75 mg PO QAM #90 tabs 05/11/22 07/10/22 07/10/22 Rx bumetanide 1 mg tablet 1 mg PO BID 06/01/22 07/10/22 07/10/22 History potassium chloride 20 mEq 20 meq PO BID 06/01/22 07/10/22 07/10/22 History tablet,extended release hydrocodone 5 mg-acetaminophen 325 1 tab PO Q6H PRN pain #14 tabs 07/06/22 07/10/22 Unknown Rx mg tablet apixaban 5 mg tablet (Eliquis) 5 mg PO BID@07,19 #180 tabs 07/08/22 07/10/22 07/10/22 Rx amoxicillin 500 mg capsule 500 mg PO BID 07/10/22 07/10/22 07/10/22 History prednisone 20 mg tablet 20 mg PO DAILY 07/10/22 07/10/22 07/10/22 History Allergies Allergy/AdvReac Type Severity Reaction Status Date / Time JACKIE Inhibitors Allergy Unknown Unknown Verified 07/10/22 14:00 aspirin Allergy ALGY-Hives Verified 07/10/22 14:00 Latex, Natural Rubber Allergy ALGY-Rash Verified 07/10/22 14:00 PFSH Acute PFSH: Medical History Acute [place] Acute non-ST elevation myocardial infarction (NSTEMI) Anemia Atrial fibrillation Rate control on anticoagulation Chronic kidney disease Coronary artery disease Coronary artery disease Hyperlipidemia Hypertension Well-controlled Sustained [place] (ventricular tachycardia) Continue current regimen including beta-ashley, amiodarone. Appear to be stable not in VT anymore. Can be discharged home. Tubular adenoma of colon Ventricular tachycardia Surgical History History of back surgery History of cardiac defibrillator placement Stented coronary artery Family History Mother No problems noted. Father No problems noted. Other CAD (coronary artery disease) Social History Smoking and tobacco status: never smoked Alcohol intake: never Adopted: No Caregiver/support person: Yes Housing: Assisted Marital status: / Current occupational status: retired History of recent travel: No Vitals/I&O/Wt Last Vital Signs Temp 99.1 F 07/10/22 11:17 Pulse 72 07/10/22 12:45 Resp 21 H 07/10/22 12:45 BP 133/84 07/10/22 12:45 Pulse Ox 98 07/10/22 12:45 O2 Del Method 07/10/22 12:31 Weight last 48 hrs Weight 89.358 kg Physical Exam Narrative: General exam is a very pale white male, when I initially evaluated him was in sinus rhythm. HEENT: Atraumatic and normocephalic. Pupils equally round. Oropharynx clear. Neck is supple no lymphadenopathy thyromegaly Cardiovascular regular rate and rhythm with 2/6 systolic murmur. Defibrillator noted left chest Lungs clear no wheezing or crackles Abdomen is soft nontender positive bowel sounds. No evidence organomegaly exams deferred Extremities show 2+ edema bilaterally. No cyanosis or clubbing Skin no rash Neuro no focal deficits Data 07/10/22 12:07 07/10/22 12:07 Other Labs: INR 1.59, PTT 38 LFTs normal Magnesium pending Albumin 3.4 Chest x-ray cardiomegaly, pacemaker, small bilateral effusions Telemetry multiple episodes of ventricular tachycardia EKG demonstrates sinus rhythm first-degree AV block normal axis, intraventricular conduction delay, nonspecific ST-T wave changes V4 through 6 and inferiorly Last echo since March 2022 demonstrated an EF of 50 to 55%, mild mitral regurgitation and mild aortic regurgitation Last pacemaker check June 2022 demonstrated no significant ventricular tachycardia A&P Assessment and plan (1) Anemia: Patient presents with severe anemia. Last coronary intervention was in April Hold Plavix, Eliquis currently Transfusion of 2 units packed red blood cell ordered Hemoglobin following transfusion Stool Hemoccult Anemia panel He is already had EGD and colonoscopy recently. May need pill endoscopy as an outpatient. (2) Ventricular tachycardia: Likely this was induced by his severe anemia Cardiology consultation Amiodarone drip has been initiated Potassium checked and normal. Check magnesium. TSH is recently been checked and was normal (3) Acute diastolic (congestive) heart failure: Patient with evidence of acute diastolic heart failure on exam Will need diuretic, 40 mg IV after first 2 units of packed red blood cells. Plan Multiple other medical problems as outlined in past medical history Full code SCDs for DVT prophylaxis. Anticoagulation contraindicated secondary to anemia. Attestations Medical Necessity Statement*: Will need greater than 2 midnight stay for evaluation of sustained ventricular tachycardia, severe anemia. Critical Care Time: The high probability of a clinically significant, sudden or life threatening deterioration of the patient's [cardiac, hematologic] system(s) required my full and direct attention, intervention and personal management. The critical care time is as shown. This time is in addition to time spent performing any reported procedures but includes the following: [x] Data and vital sign review and interpretation [x] Patient assessment, examination and intervention [x] Documentation [x] Medication orders and management Critical Care Time (min): 55 Coding Level of Care Code Acute Route Delivery Driver for g Fwd Diagnoses Anemia D64.9 Ventricular tachycardia I47.20 Acute diastolic (congestive) heart failure I50.31
--- NOTE | 2022-07-10 14:31 | PC.NURSE ---
This nurse pulled 6mg of versed per provider's order. This nurse simin up 6mg into a syringe with the patient about to be cardioverted. Patient was able to cardiovert without outside aid. This nurse left the syringe on the counter in case the patient would develop into another rhythm.
--- NOTE | 2022-07-10 14:34 | PM.CONSULT ---
Providers/Reason For Consult Consulting Physician/Specialty*: FIORDALIZA Gonzalez MD/cardiology Reason for Consult*: Patient with wide-complex tachycardia/hypotension/anemia Requesting Physician: Dr. Nowak/Dr. Villarreal Attending Physician: Emmanuel Villarreal MD Primary Care Provider: Gene Peralta History of Present Illness History of Present Illness Jesus Saucedo is a 86 year old male with a history of atherosclerotic heart disease, ischemic cardiomyopathy, congestive heart failure, ventricular tachycardia and ICD implantation, presented to the hospital today for elective blood transfusion. While being in the hospital, he went into wide-complex tachycardia. He also became hypotensive. There was no ICD discharges. Because of the hypotension and the wide-complex tachycardia, the ER physician was getting ready to do cardioversion. Apparently the patient converted to sinus rhythm while getting ready for the cardioversion. Cardiology consult is requested for further cardiac evaluation recommendations. Patiently has history of chronic anemia. His hemoglobin was around 6. Exact reason for the anemia is not clear at this time. Patient had a more or less similar presentation in March of last year. At that time, the dose of the amiodarone was increased and currently seems to be on amiodarone 200 mg p.o. twice daily. According to the patient, he has been doing okay at home except for shortness of breath with activities and some fatigue. His hemoglobin is gradually dropping. He was seen by the primary care physician and was recommended for blood transfusion. He did not have any recent ICD discharges since the last one in March 2022. He has no fever or chills. No cough. No significant chest pain or palpitations. He may have some chest discomfort off and on. No other specific complaints. The most recent ICD interrogation was done on May 08. The device was set for a VT detection rate of 171-200. No VT treatment . V. fib rate of greater than 200, ATP before charging. Apparently there was no ventricular tachycardia detected. No V. fib as well. Review of Systems Narrative: CONSTITUTIONAL: No fever or chills. Feeling of lethargy/weakness for couple of weeks. EYES: No blurring of vision or other visual disturbances lately. ENT: No hoarseness of voice, auditory disturbances or sore throat. CARDIOVASCULAR: As mentioned above. RESPIRATORY: Shortness of breath as mentioned above. GASTROINTESTINAL: No hematemesis or melena. GENITOURINARY: No dysuria or hematuria. INTEGUMENTARY: No skin rashes or history of skin cancer. NEURO: No transient ischemic attacks or amaurosis. PSYCHIATRIC: No history of psychosis or major depression. HEMATOLOGIC: No bleeding disorders or significant anemia. ENDOCRINE: No history of polyuria or polydipsia. MUSCULOSKELETAL: No recent joint pain or swelling. Some ecchymotic areas in the left upper arm, from a recent fall ALLERGY/IMMUNOLOGY: As mentioned above. Medications/Allergies Home Medications Medication Instructions Recorded Confirmed Last Taken Type nitroglycerin 0.4 mg sublingual 0.4 mg sublingual Q5MIN PRN Chest 04/12/21 07/10/22 Unknown History tablet Pain rosuvastatin 40 mg tablet 40 mg PO BEDTIME 04/12/21 07/10/22 07/09/22 History multivit with min-folic 1 tab PO DAILY 04/25/21 07/10/22 07/10/22 History acid-lutein 400 mcg-250 mcg chewable tablet (Centrum Silver) acetaminophen 500 mg tablet 500 mg PO Q6H PRN Pain 05/21/21 07/10/22 06/01/22 History (Tylenol Extra Strength) Thumb Spica #1 ea 02/26/22 07/10/22 Unknown Rx levothyroxine 75 mcg tablet 75 mcg PO QAM 03/02/22 07/10/22 07/10/22 History albuterol sulfate 90 mcg/actuation 2 puff inhalation Q6H PRN 03/04/22 07/10/22 06/01/22 History aerosol inhaler Shortness Of Breath metoprolol tartrate 25 mg tablet 12.5 mg PO BID #60 tabs 03/25/22 07/10/22 07/10/22 Rx lidocaine 4 % topical patch 1 patch topical DAILY PRN Pain 04/13/22 07/10/22 Unknown History (Salonpas (lidocaine)) clopidogrel 75 mg tablet 75 mg PO QAM #90 tabs 05/11/22 07/10/22 07/10/22 Rx hydrocodone 5 mg-acetaminophen 325 1 tab PO Q6H PRN pain #14 tabs 07/06/22 07/10/22 Unknown Rx mg tablet apixaban 5 mg tablet (Eliquis) 5 mg PO BID@,19 #180 tabs 07/08/22 07/10/22 07/10/22 Rx amiodarone 200 mg tablet 200 mg PO BID #180 tabs 07/11/22 07/10/22 07/10/22 Rx bumetanide 1 mg tablet 1 mg PO BID #60 tabs 07/11/22 07/10/22 07/10/22 Rx ferrous sulfate 325 mg (65 mg 325 mg PO DAILY #90 tabs 07/11/22 Unknown Rx iron) tablet (Feosol) polyethylene glycol 3350 17 4 g PO DAILY PRN constipation #119 07/11/22 Unknown Rx gram/dose oral powder (Miralax) grams potassium chloride 20 mEq 20 meq PO BID #60 tabs 07/11/22 07/10/22 07/10/22 Rx tablet,extended release Allergies Allergy/AdvReac Type Severity Reaction Status Date / Time JACKIE Inhibitors Allergy Unknown Unknown Verified 07/10/22 14:00 aspirin Allergy ALGY-Hives Verified 07/10/22 14:00 Latex, Natural Rubber Allergy ALGY-Rash Verified 07/10/22 14:00 Current Medications Generic Name Dose Route Start Last Admin Trade Name Freq PRN Reason Stop Dose Admin Amiodarone HCl 900 mg/ 518 mls @ 0 mls/hr 07/10/22 13:15 07/10/22 14:02 Dextrose/ IV Miscellaneous IV 1 mg/min Supplies .Q0M RICARDO 34.53 mls/hr Administration Protocol Per Protocol PFSH Acute PFSH: Medical History Acute DE Acute non-ST elevation myocardial infarction (NSTEMI) Anemia Atrial fibrillation Rate control on anticoagulation Chronic kidney disease Coronary artery disease Coronary artery disease Hyperlipidemia Hypertension Well-controlled Sustained VT (ventricular tachycardia) Continue current regimen including beta-ashley, amiodarone. Appear to be stable not in VT anymore. Can be discharged home. Tubular adenoma of colon Ventricular tachycardia Surgical History History of back surgery History of cardiac defibrillator placement Stented coronary artery Family History Mother No problems noted. Father No problems noted. Other CAD (coronary artery disease) Social History Smoking and tobacco status: never smoked Alcohol intake: never Adopted: No Caregiver/support person: Yes Housing: [place] Marital status: / Current occupational status: retired History of recent travel: No Vitals/I&O/Wt Last Vital Signs Temp 97.7 F 07/10/22 13:51 Pulse 72 07/10/22 13:45 Resp 19 H 07/10/22 13:45 BP 140/70 07/10/22 13:45 Pulse Ox 98 07/10/22 13:45 O2 Del Method 07/10/22 12:31 07/09/22 07/10/22 07/10/22 22:59 06:59 14:59 Intake Total 0 / 0 Balance 0 / 0 Weight last 48 hrs Weight 197 lb Physical Exam Narrative: GENERAL: The patient is alert and oriented times three. Not in any acute distress. HEENT: Moderate pallor no icterus or lymphadenopathy.Oral cavity: There are no mucous membrane lesions. NECK: Trachea appears to be central. No masses noted. No JVD or thyromegaly appreciated. RESPIRATORY: Chest is symmetrical. No intercostals muscle retraction or any accessory muscle activation. There is no chest wall tenderness. Breath sounds are heard bilaterally. No rales or rhonchi heard. No evidence of any consolidation. BREASTS: Deferred. HEART: The heart sounds are normal. No S3 or S4. Systolic murmur grade 3/6 in the left sternal border in the left sternal border. No diastolic murmurs. No pericardial rub ABDOMEN: No vessel pulsations or distention. No tenderness. No organomegaly appreciated. Bowel sounds are normally heard. : Deferred. RECTAL: Deferred. LYMPHATIC: No lymphadenopathy noted in the neck. EXTREMITIES: 2+ edema both lower extremities. No cyanosis. Peripheral pulses are palpable but weak bilaterally MUSCULOSKELETAL: No acute joint deformities or swelling SKIN: There are no significant rashes or ecchymosis NEUROPSYCHIATRIC: The patient is alert and oriented x3. Appears to be in a good mood. No tremors or rigidity noted. Data 07/10/22 12:07 07/10/22 12:07 Other Labs: PT 19.30 SECONDS (12.1-14.9) H 07/10/22 12:07 APTT 37.9 SECONDS (23.9-36.7) H 07/10/22 12:07 Echo: My impression: Echocardiogram in March 2022 LV systolic function is normal with EF 55 to 55%. ?Left atrial dilation seen ?Mild mitral regurgitation ?Aortic valve is thickened.? Mild aortic stenosis. Mild aortic ?regurgitation ?Mild tricuspid regurgitation ?Compared to prior echocardiogram from 04/25/2021, LV systolic ?function has improved and has normalized. EKG 1: My Interpretation: Thank you there is old sinus rhythm with a rate of 74 bpm. Relative AV block. Diffuse nonspecific ST-T changes most specifically in the anterolateral leads. A&P Assessment and plan (1) Acute on chronic diastolic (congestive) heart failure: Patient may be carefully treated with IV diuretics. The severe anemia could be a major contributing factor. Blood transfusion to keep the hemoglobin around 9 would be appropriate. May be given IV diuretics in between transfusions. (2) Wide-complex tachycardia: The patient seems to have wide-complex tachycardia and a rate of 120 to 130 bpm apparently the device has the VT therapy turned off, possibly because of the history of atrial fibrillation with rapid ventricular rate. We will consider returning to therapy on, if the patient has recurrence of the tachyarrhythmia even after blood transfusion. (3) Anemia: Is not clear as to whether the patient had any hematology evaluation for the etiology of the anemia. Apparently he has no review of GI bleed. (4) Hypertension: Blood pressure has been stable since the cardioversion. We will continue to monitor the heart rate and the blood pressure on telemetry (5) Cardiomyopathy: Patient has a history of cardiomyopathy. For the most recent echocardiogram revealed normal LV ejection fraction. He may be carefully treated with diuretics. (6) Atrial fibrillation: The feasibility of continuing the long-term oral anticoagulation need to be discussed. May hold off on medication for the time being. Plan Agree with the blood transfusion to keep the hemoglobin between 9 and 10. Continue on the amiodarone p.o. 200 mg twice daily. May discontinue the IV amiodarone once the current dose is finished. Based on the results of the above tests and the patient's clinical progress, further recommendations will be made. Thank you for the opportunity to eval this patient and make these recommendations Consult Attestations Medical Necessity Statement: Patient requires continued hospital stay for close monitoring and further management Coding Level of Care Code Acute Cotton Classer for Alejandrog Fwd History Detailed Exam Detailed Diagnoses Acute on chronic diastolic (congestive) heart failure I50.33 Wide-complex tachycardia R00.0 Anemia D64.9 Hypertension I10 Cardiomyopathy I42.9 Atrial fibrillation I48.91
[2022-07-10] MEDS: FUROsemide 10 mg/mL SDV 4mL 40 MG IVP (14:45)
[2022-07-10] MEDS: sodium chloride 0.9% (100 ml) 100 ML (14:45)
--- NOTE | 2022-07-10 15:01 | CTR_ITS ---
PROCEDURE INFORMATION: Exam: CT Abdomen And Pelvis Without Contrast Exam date and time: 07/10/2022 4:47 PM Age: 86 years old Clinical indication: Other: Anemia; Prior surgery; Surgery type: Spine; Patient HX: Prostate cancer; Additional info: Severe anemia TECHNIQUE: Imaging protocol: Computed tomography of the abdomen and pelvis without contrast. Radiation optimization: All CT scans at this facility use at least one of these dose optimization techniques: automated exposure control; mA and/or kV adjustment per patient size (includes targeted exams where dose is matched to clinical indication); or iterative reconstruction. COMPARISON: CT abdomen pelvis wo con [id number] 03/23/2022 4:51 PM RADIATION DOSE METRICS: Total DLP (mGy-cm): 905.8 FINDINGS: Limitations: Study is technically limited due to motion artifact. Lungs: There are small bibasilar pleural effusions that have developed that may be cardiogenic in nature. Heart: Heart is significantly enlarged. Liver: Normal. No mass. Gallbladder and bile ducts: Normal. No calcified stones. No ductal dilation. Pancreas: Unremarkable. Main pancreatic duct is not significantly dilated. Spleen: Normal. No splenomegaly. Adrenal glands: Normal. No mass. Kidneys and ureters: Bilateral renal cysts larger on the left with density readings consistent with benign etiology. Stomach and bowel: There are multiple diverticuli throughout the distal portion of the large bowel without evidence of diverticulitis. Appendix: No evidence of appendicitis. Intraperitoneal space: Unremarkable. No free air. No significant fluid collection. Vasculature: Abdominal aorta and iliac vessels are diffusely calcified. There is no aortic aneurysm. Lymph nodes: Unremarkable. No enlarged lymph nodes. Urinary bladder: Whitman catheter balloon within the urinary bladder is somewhat collapsed and difficult to further assess. Reproductive: Prostate gland not significantly enlarged. Bones/joints: Multilevel bridging osteophytes across the thoracolumbar spine suggestive of ankylosing spondylitis. Priors spinal decompression and instrumentation lower thoracic spine. No acute bony abnormalities. Soft tissues: Mild anasarca within the soft tissues that has developed. CT/CT abdomen pelvis wo con [id number] IMPRESSION: 1. No acute findings within the abdomen or pelvis. 2. Colonic diverticulosis. No evidence of acute diverticulitis. 3. Cardiomegaly with interval development of small bibasilar pleural effusions and mild anasarca suggesting CHF/volume overload. 4. Additional nonemergent findings as above.
--- NOTE | 2022-07-10 15:48 | PC.NURSE ---
Pacemaker interrogation done.
--- NOTE | 2022-07-10 15:49 | PC.NURSE ---
Patient admitted to ICU via bed on room air with amio and blood running. Second bag of blood brought with patient in cooler. Skin tear noted to left elbow and 4+ pitting edema noted to lower extremities. Shoes, socks, pants and jacket in room and daughter stated that she would take them home.
[2022-07-10 16:25] LABS: Add Urine Microscopic? NO; Charge for UA Resulting for Rev
[2022-07-10 16:37] LABS: Bilirubin Urine Neg (Negative); Blood Urine Neg (Negative); Glucose Urine UA Norm (Normal); Ketones Urine Negative (Negative); Leukocyte Esterase Urine Negative (Negative); Nitrate Urine Negative (Negative); Protein Urine Neg (Negative); Urine Appearance Clear (CLEAR); Urine Color Straw (Yellow); Urobilinogen Urine Neg (Negative); pH Urine 7 (5-7)
[2022-07-10 16:41] LABS: Ferritin 30 ng/mL (30-400); Iron 16 ug/dL (59-158); Percent Saturation 4.2 % (20-50); Total Iron Binding Capacity 377 mcg/dl; Unsaturated Iron Binding 361 ug/dL (112-347)
[2022-07-10] MEDS: potassium chloride ER 20 mEq Tablet PO (17:34)
[2022-07-10] MEDS: pantoprazole 40 mg SDV IVP (17:34)
[2022-07-10] MEDS: metoprolol tartrate 25 mg Tablet 12.5 MG PO (17:34)
[2022-07-10 18:12] LABS: Hematocrit 29.2 % (42.0-52.0); Hemoglobin 8.3 g/dL (11.7-16.6)
[2022-07-10] MEDS: atorvastatin 40 mg Tablet 80 MG PO (20:20)
[2022-07-10] MEDS: benzonatate 100 mg Capsule PO (21:10)
[2022-07-10] MEDS: FUROsemide 10 mg/mL SDV 10mL 80 MG IVP (22:46)
[2022-07-11] VITALS (18 sets, daily range): BP systolic 102–159; BP diastolic 51–74; PULSE 50–65; RESP 15–23; TEMP 36.7–37.4; O2SAT 91–97; BMI 28.3
[2022-07-11] MEDS: pantoprazole 40 mg SDV IVP (04:27)
[2022-07-11] MEDS: levothyroxine 75 mcg Tablet PO (05:29)
[2022-07-11 05:49] LABS: Basophils % 0.6 %; Eosinophils % 0.2 %; Hemoglobin 7.3 g/dL (11.7-16.6); Lymphocytes # 0.9 10^3/uL (0.8-4.8); Lymphocytes % 14.6 %; Mean Corpuscular Hemoglobin 24.5 pg (28.0-34.0); Mean Corpuscular Volume 90.6 fl (80-94); Mean Platelet Volume 11.4 fL (7.4-10.4); Monocytes # 0.6 10^3/uL (0.2-0.9); Monocytes % 9.5 %; Neutrophils # 4.83 10^3/uL (1.8-7.7); Neutrophils % 74.8 %; Nucleated Red Blood Cells % 0.3 %; Platelet Count 103 10^3/cmm (130-400); Red Blood Count 2.98 10^6/uL (4.1-5.3); Red Cell Distribution Width 17.1 % (12.1-15.1); White Blood Count 6.5 10^3/uL (4.0-10.0)
[2022-07-11 07:00] LABS: Alanine Aminotransferase 14 U/L (0-41); Albumin Level 3.2 g/dL (3.5-5.2); Alkaline Phosphatase 90 U/L (40-130); Anion Gap 13.2 (5-19); Aspartate Amino Transferase 18 U/L (0-40); Blood Urea Nitrogen 13 mg/dL (8-23); Calcium 8.5 mg/dL (8.5-10.5); Carbon Dioxide 24 mmol/L (22-29); Chloride 105 mmol/L (98-107); Globulin 3.2 g/dL (1.3-4.6); Glucose 91 mg/dL (65-115); Magnesium 2.1 mg/dL (1.7-2.3); Osmolality Calculated 288 mOsm/kg (285-295); Potassium 3.2 mmol/L (3.5-5.1); Sodium 139 mmol/L (136-145); Total Bilirubin 1.1 mg/dL (0.15-1.2); Total Protein 6.4 g/dL (6.6-8.7)
--- NOTE | 2022-07-11 07:04 | PC.NURSE ---
bedside report received from Geraldine GUIDRY
[2022-07-11] MEDS: potassium chloride ER 20 mEq Tablet PO (09:40)
[2022-07-11] MEDS: sodium chloride 0.9% 100 mL Bag IVP (09:40)
[2022-07-11] MEDS: metoprolol tartrate 25 mg Tablet 12.5 MG PO (09:41)
[2022-07-11] MEDS: FUROsemide 10 mg/mL SDV 10mL 80 MG IVP (11:34)
--- NOTE | 2022-07-11 12:14 | PM.DCS ---
Discharge Providers Date of Admission: 07/10/22 13:36 Date of Discharge: July 11, 2022 Attending Provider at Admission: Emmanuel Villarreal MD Attending Provider at Discharge: Emmanuel Villarreal MD Primary Care Provider: Gene Peralta Diagnoses at Discharge Discharge Diagnosis (1) Acute on chronic systolic heart failure: Status: Acute (2) Wide-complex tachycardia: Status: Acute (3) Atherosclerosis of coronary artery of [place] heart without angina pectoris: Status: Acute (4) Anemia: Status: Acute (5) Hypertension: Status: Acute Permanent problem details: Well-controlled (6) Cardiomyopathy: Status: Acute Permanent problem details: History of ischemic cardiomyopathy, do not need revascularization, continue optimal medical regimen (7) Atrial fibrillation: Status: Acute Permanent problem details: Rate control on anticoagulation Reason for Visit Reason for Visit: sent for blood transfusion Hospital Course Hospital Course 86-year-old male with history of ventricular tachycardia, coronary artery disease, chronic anticoagulation, history of diastolic CHF, presented to the ER when PCP called because of low hemoglobin. Patient was given 2 units PRBC at the time of admission, cardiology was consulted because patient was hypotensive with wide-complex tachyarrhythmia, ER physician was about to cardiovert him when he spontaneously converted to narrow complex rhythm, hemoglobin on 07/11 7.3. Requested extra Unit of blood patient has remained hemodynamically stable, total he would get 3 units PRBC. Due for pill endoscopy outpatient. Anticoagulating agents on hold CT abdomen pelvis did not show any signs of retroperitoneal bleed. Dr. Canchola did EGD and colonoscopy which did not show any active sign of bleeding polyps were removed,, pathology report is showing multiple fragments of tubular adenoma, no high-grade dysplasia identified He seems to have severe iron deficiency anemia with low normal ferritin, added p.o. iron supplement at the time of discharge Dr. Gonzalez recommended resuming Plavix along amiodarone at the time of discharge Physical Exam Narrative: Clinical signs of mild fluid overload Currently doing well on room air Hemodynamically stable Bradycardia Awake and alert Nonfocal neuro exam No active abdominal pain Urinary Catheter Management: Whitman: Cath Placed During This Visit: yes Reason for Continuing Indwelling Catheter: Accurate Measurement of Urinary Output in Critically Ill Patients Urinary Catheter Date of Insertion: 07/10/22 Urinary Catheter Time of Insertion: 15:14 Discharge Data Studies Completed and Pending Completed Studies During Hospitalization Category Date Time Status CT abdomen pelvis wo con [id number] Routine Cat Scan 07/10/22 15:01 Completed XR chest 1V portable [id number] Stat Exams 07/10/22 11:46 Completed Pending at discharge Category Date Time Status Immunochemical Fecal OCB Stat Lab 07/10/22 12:56 Uncollected Leukocyte Reduced RBC Routine Lab 07/10/22 12:07 Results Occult Blood Stool [Immunochemical Fecal OCB] Routine Lab 07/10/22 12:56 Uncollected Type and Screen Routine Lab 07/10/22 12:07 Results Radiology Impressions Chest X-Ray 07/10/22 11:46 Impression: 1. No change in cardiomegaly, atherosclerosis and permanent pacemaker. 2. Small bilateral pleural effusions. Abdomen/Pelvis CT 07/10/22 15:01 IMPRESSION: 1. No acute findings within the abdomen or pelvis. 2. Colonic diverticulosis. No evidence of acute diverticulitis. 3. Cardiomegaly with interval development of small bibasilar pleural effusions and mild anasarca suggesting CHF/volume overload. 4. Additional nonemergent findings as above. Laboratory Results WBC 6.5 10^3/uL (4.0-10.0) 07/11/22 04:50 RBC 2.98 10^6/uL (4.1-5.3) L 07/11/22 04:50 Hgb 7.3 g/dL (11.7-16.6) L 07/11/22 04:50 Hct 27.0 % (42.0-52.0) L 07/11/22 04:50 MCV 90.6 fl (80-94) D 07/11/22 04:50 MCH 24.5 pg (28.0-34.0) L 07/11/22 04:50 MCHC 27.0 g/dL (30.0-36.0) L 07/11/22 04:50 RDW 17.1 % (12.1-15.1) H 07/11/22 04:50 Plt Count 103 10^3/cmm (130-400) L D 07/11/22 04:50 MPV 11.4 fL (7.4-10.4) H 07/11/22 04:50 Neut % (Auto) 74.8 % 07/11/22 04:50 Lymph % (Auto) 14.6 % 07/11/22 04:50 [place] % (Auto) 9.5 % 07/11/22 04:50 Eos % (Auto) 0.2 % 07/11/22 04:50 Baso % (Auto) 0.6 % 07/11/22 04:50 Neut # (Auto) 4.83 10^3/uL (1.8-7.7) 07/11/22 04:50 Lymph # (Auto) 0.9 10^3/uL (0.8-4.8) 07/11/22 04:50 [place] # (Auto) 0.6 10^3/uL (0.2-0.9) 07/11/22 04:50 Eos # (Auto) 0.0 10^3/uL (0.0-0.8) 07/11/22 04:50 Baso # (Auto) 0.0 10^3/uL (0.0-0.1) 07/11/22 04:50 Nucleated RBC % (auto) 0.3 % 07/11/22 04:50 Nucleated RBCs # 0.0 /100WBC 07/11/22 04:50 PT 19.30 SECONDS (12.1-14.9) H 07/10/22 12:07 INR 1.59 (0.8-1.2) H 07/10/22 12:07 APTT 37.9 SECONDS (23.9-36.7) H 07/10/22 12:07 Sodium 139 mmol/L (136-145) 07/11/22 06:25 Potassium 3.2 mmol/L (3.5-5.1) L 07/11/22 06:25 Chloride 105 mmol/L (98-107) 07/11/22 06:25 Carbon Dioxide 24 mmol/L (22-29) 07/11/22 06:25 Anion Gap 13.2 (5-19) 07/11/22 06:25 BUN 13 mg/dL (8-23) 07/11/22 06:25 Creatinine 1.0 mg/dL (0.7-1.2) 07/11/22 06:25 GFR Calculation Not Reportable 07/11/22 06:25 Glucose 91 mg/dL (65-115) 07/11/22 06:25 Calculated Osmolality 288 mOsm/kg (285-295) 07/11/22 06:25 Calcium 8.5 mg/dL (8.5-10.5) 07/11/22 06:25 Magnesium 2.1 mg/dL (1.7-2.3) 07/11/22 06:25 Iron 16 ug/dL (59-158) L 07/10/22 12:07 TIBC 377 mcg/dl 07/10/22 12:07 % Saturation 4.2 % (20-50) L 07/10/22 12:07 Unsat Iron Binding 361 ug/dL (112-347) H 07/10/22 12:07 Ferritin 30 ng/mL (30-400) 07/10/22 12:07 Total Bilirubin 1.1 mg/dL (0.15-1.2) 07/11/22 06:25 AST 18 U/L (0-40) 07/11/22 06:25 ALT 14 U/L (0-41) 07/11/22 06:25 Alkaline Phosphatase 90 U/L (40-130) 07/11/22 06:25 Total Protein 6.4 g/dL (6.6-8.7) L 07/11/22 06:25 Albumin 3.2 g/dL (3.5-5.2) L 07/11/22 06:25 Globulin 3.2 g/dL (1.3-4.6) 07/11/22 06:25 Urine Color Straw (Yellow) 07/10/22 15:50 Urine Appearance Clear (CLEAR) 07/10/22 15:50 Urine pH 7 (5-7) 07/10/22 15:50 Ur Specific [place] 1.010 (1.005-1.030) 07/10/22 15:50 Urine Protein Neg (Negative) 07/10/22 15:50 Urine Glucose (UA) Norm (Normal) 07/10/22 15:50 Urine Ketones Negative (Negative) 07/10/22 15:50 Urine Blood Neg (Negative) 07/10/22 15:50 Urine Nitrate Negative (Negative) 07/10/22 15:50 Urine Bilirubin Neg (Negative) 07/10/22 15:50 Urine Urobilinogen Neg mg/dL (Negative) 07/10/22 15:50 Ur Leukocyte Esterase Negative (Negative) 07/10/22 15:50 Blood Type A Positive 07/10/22 12:07 Rho(D) Type Positive 07/10/22 12:07 Antibody Screen Negative 07/10/22 12:07 Crossmatch See Detail 07/10/22 12:07 Vitals Last Vital Signs Temp 98.0 F 07/11/22 10:35 Pulse 53 L 07/11/22 10:35 Resp 19 H 07/11/22 10:35 BP 131/64 07/11/22 10:35 Pulse Ox 92 07/11/22 10:35 O2 Del Method 07/11/22 10:00 Discharge Plan Discharge Patient Disposition: Home Condition: Stable Prescriptions: Continued acetaminophen [Tylenol Extra Strength] 500 mg tablet 500 mg PO Q6H PRN (Reason: Pain) metoprolol tartrate 25 mg tablet 12.5 mg PO BID Qty: 60 3RF lidocaine [Salonpas (lidocaine)] 4 % adhesive patch,medicated 1 patch topical DAILY PRN (Reason: Pain) (DME) Thumb Spica See Rx Instructions .Route .MEDSUPPLY Qty: 1 0RF Rx Instructions: As directed. clopidogrel 75 mg tablet 75 mg PO QAM Qty: 90 3RF Hold Instructions: Resume on 06/06/22. nitroglycerin 0.4 mg tablet, sublingual 0.4 mg sublingual Q5MIN PRN (Reason: Chest Pain) rosuvastatin 40 mg tablet 40 mg PO BEDTIME Centrum Silver 400-250 mcg Tablet,Chewable 1 tab PO DAILY levothyroxine 75 mcg tablet 75 mcg PO QAM hydrocodone-acetaminophen 5-325 mg tablet 1 tab PO Q6H PRN (Reason: pain) Qty: 14 0RF albuterol sulfate 90 mcg/actuation HFA aerosol inhaler 2 puff INHALATION Q6H PRN (Reason: Shortness Of Breath) amiodarone 200 mg tablet 200 mg PO BID Qty: 180 3RF potassium chloride 20 mEq tablet extended release 20 meq PO BID Qty: 60 2RF bumetanide 1 mg tablet 1 mg PO BID Qty: 60 0RF Held Eliquis 5 mg tablet 5 mg PO BID@ Qty: 180 3RF Hold Instructions: Resume on 06/06/22. Discontinued amoxicillin 500 mg capsule 500 mg PO BID prednisone 20 mg tablet 20 mg PO DAILY Referrals: Ayaan Sen M.D [Physician] - 2 weeks Gene Peralta [Primary Care Provider] - Patient Instructions: Opioid Safety Discharge Attestations Time Spent in Discharge Care*: less than 30 min Quality Metrics Clinical Quality Measures [ No reported AMI, CVA or VTE this stay] Coding Level of Care Code Acute Chg FW DC note Diagnoses Acute on chronic systolic heart failure I50.23 Wide-complex tachycardia R00.0 Atherosclerosis of coronary artery of [place] heart without angina pectoris I25.10 Anemia D64.9 Hypertension I10 Cardiomyopathy I42.9 Atrial fibrillation I48.91
[2022-07-11] MEDS: amiodarone 200 mg Tablet 400 MG PO (13:23)
[2022-07-11] MEDS: potassium chloride ER 20 mEq Tablet 40 MEQ PO (13:24)
[2022-07-11 14:33] LABS: Basophils # 0.1 10^3/uL (0.0-0.1); Basophils % 0.8 %; Eosinophils % 0.5 %; Hematocrit 29.4 % (42.0-52.0); Hemoglobin 8.6 g/dL (11.7-16.6); Lymphocytes % 15.7 %; Mean Corpuscular HGB Conc 29.3 g/dL (30.0-36.0); Mean Corpuscular Hemoglobin 24.8 pg (28.0-34.0); Mean Corpuscular Volume 84.7 fl (80-94); Mean Platelet Volume 9.8 fL (7.4-10.4); Monocytes # 0.6 10^3/uL (0.2-0.9); Monocytes % 9.6 %; Neutrophils # 4.79 10^3/uL (1.8-7.7); Neutrophils % 73.2 %; Nucleated Red Blood Cells % 0.3 %; Platelet Count 277 10^3/cmm (130-400); Red Blood Count 3.47 10^6/uL (4.1-5.3); Red Cell Distribution Width 16.7 % (12.1-15.1); White Blood Count 6.5 10^3/uL (4.0-10.0)
[2022-07-11 15:12] LABS: Vitamin B12 602 pg/mL (232-1245)
--- NOTE | 2022-07-11 15:42 | PC.NURSE ---
catheter removed. pt tolerated well.
--- NOTE | 2022-07-11 17:49 | PM.PN ---
Subjective Subjective: Patient is doing okay. He is hemoglobin has improved to 8.6. He is receiving the third unit of blood. Denies any chest pain. Has not had any recurrence of ventricular tachycardia. Vital signs are remaining stable. Vitals/I&O/Wt Last Vital Signs Temp 98.0 F 07/11/22 16:58 Pulse 50 L 07/11/22 16:58 Resp 19 H 07/11/22 16:58 BP 128/54 07/11/22 16:58 Pulse Ox 97 07/11/22 16:58 O2 Del Method 07/11/22 16:00 07/11/22 07/11/22 07/11/22 06:59 14:59 22:59 Intake Total 590 / 590 Output Total 3700 / 6300 2450 / 2450 Balance -3700 / -5232.392 590 / 590 -2450 / -1860 Weight last 48 hrs Weight 197 lb 14.4 oz Weight 205 lb Weight 197 lb Physical Exam Narrative: GENERAL: The patient is alert and oriented times three. Not in any acute distress. HEENT: Moderate pallor no icterus or lymphadenopathy.Oral cavity: There are no mucous membrane lesions. NECK: Trachea appears to be central. No masses noted. No JVD or thyromegaly appreciated. RESPIRATORY: Chest is symmetrical. No intercostals muscle retraction or any accessory muscle activation. There is no chest wall tenderness. Breath sounds are heard bilaterally. No rales or rhonchi heard. No evidence of any consolidation. BREASTS: Deferred. HEART: The heart sounds are normal. No S3 or S4. Systolic murmur grade 3/6 in the left sternal border in the left sternal border. No diastolic murmurs. No pericardial rub ABDOMEN: No vessel pulsations or distention. No tenderness. No organomegaly appreciated. Bowel sounds are normally heard. : Deferred. RECTAL: Deferred. LYMPHATIC: No lymphadenopathy noted in the neck. EXTREMITIES: 2+ edema both lower extremities. No cyanosis. Peripheral pulses are palpable but weak bilaterally MUSCULOSKELETAL: No acute joint deformities or swelling SKIN: There are no significant rashes or ecchymosis NEUROPSYCHIATRIC: The patient is alert and oriented x3. Appears to be in a good mood. No tremors or rigidity noted. Urinary Catheter Management: Whitman: Cath Placed During This Visit: yes Reason for Continuing Indwelling Catheter: Accurate Measurement of Urinary Output in Critically Ill Patients Urinary Catheter Date of Insertion: 07/10/22 Urinary Catheter Time of Insertion: 15:14 Data 07/11/22 14:27 07/11/22 06:25 A&P Assessment and plan (1) Acute on chronic diastolic (congestive) heart failure: Patient's heart failure seems to be compensated at this time. May continue the p.o. Lasix. (2) Wide-complex tachycardia: The patient has no recurrence of ventricular tachycardia, may be started on amiodarone p.o. 200 mg twice daily. Other medications may be continued. (3) Anemia: Anemia work-up as an outpatient. (4) Hypertension: Currently normotensive. Continue on the current medications. (5) Cardiomyopathy: Patient has a history of cardiomyopathy. For the most recent echocardiogram revealed normal LV ejection fraction. Continue on the current measures. (6) Atrial fibrillation: Because of the severe anemia requiring multiple blood transfusion, agree with holding off on any oral anticoagulation at this point. Plan If the patient continues to remain stable, may be discharged home from a cardiac standpoint. Appointment with the [facility] to be seen by nurse practitioner. Appointment with Dr. Sen in 3 weeks Attestations Medical Necessity Statement*: Disposition as per the primary attending. Coding Level of Care Code Acute Operating Cost Clerk for Lawson Fwd History Expanded Problem Focused Exam Expanded Problem Focused Medical Decision Making Moderate Complexity Diagnoses Acute on chronic diastolic (congestive) heart failure I50.33 Wide-complex tachycardia R00.0 Anemia D64.9 Hypertension I10 Cardiomyopathy I42.9 Atrial fibrillation I48.91
== END 2022-07-11 16:30 | disposition home or self-care (01) | DRG 308 ==
LOC: ER 11:48 → ICU 13:52
PROVIDERS: Internal Medicine; Admitting Provider Internal Medicine; Emergency Provider Family Medicine; PCP Family Medicine; Visit Provider Internal Medicine
DX: I47.20 Ventricular tachycardia, unspecified (principal); I50.33 Acute on chronic diastolic (congestive) heart failure; I13.0 Hypertensive heart and chronic kidney disease with heart failure and stage 1 through stage 4 chronic kidney disease, or unspecified chronic kidney disease; N18.9 Chronic kidney disease, unspecified; I25.10 Atherosclerotic heart disease of native coronary artery without angina pectoris; D63.1 Anemia in chronic kidney disease; I25.5 Ischemic cardiomyopathy; D64.9 Anemia, unspecified; I48.91 Unspecified atrial fibrillation; I95.9 Hypotension, unspecified; Z79.02 Long term (current) use of antithrombotics/antiplatelets; Z79.891 Long term (current) use of opiate analgesic; I25.2 Old myocardial infarction; Z95.810 Presence of automatic (implantable) cardiac defibrillator; E78.5 Hyperlipidemia, unspecified
CPT/HCPCS: 23600; 36415; 36430; 51702; 71045; 74176; 80053; 81003; 82607; 82728; 83540; 83550; 83735; 85014; 85018; 85025; 85610; 85730; 86850; 86900; 86920; 93005; 96365; 96375; 99213; 99285; C9113; J0282; J1940; J7060; P9016

== ENCOUNTER → 2022-07-14 10:44 | Outpatient (BNVA) | payer MEDICARE, OTHER, SELFPAY | PROVIDERS: PCP Family Medicine; Visit Provider Physician Assistant | DX: Z98.1 Arthrodesis status (principal) | CPT/HCPCS: 72070; 99213 ==

== ENCOUNTER → 2022-07-22 13:06 | Outpatient (BNVA) | payer MEDICARE, OTHER, SELFPAY | PROVIDERS: PCP Family Medicine; Visit Provider Orthopaedic Surgery | DX: S42.292A Other displaced fracture of upper end of left humerus, initial encounter for closed fracture (principal); X58.XXXA Exposure to other specified factors, initial encounter | CPT/HCPCS: 73030; 99024 ==

== ENCOUNTER → 2022-07-27 10:24 | Outpatient (BNVA) | payer MEDICARE, OTHER, SELFPAY | PROVIDERS: PCP Family Medicine; Visit Provider Nurse Practitioner Family | DX: I47.20 Ventricular tachycardia, unspecified (principal) | CPT/HCPCS: 99213 ==

== ENCOUNTER 2022-08-21 22:38 | Inpatient (IN) | payer MEDICARE, OTHER, SELFPAY ==
[2022-08-21 22:43] VITALS: BP 178/65; PULSE 34; RESP 16; TEMP 36.6; O2SAT 96
--- NOTE | 2022-08-21 22:49 | XRR_ITS ---
PROCEDURE INFORMATION: Exam: XR Chest Exam date and time: 08/21/2022 10:54 PM Age: 86 years old Clinical indication: Pain; Chest pressure; Prior surgery; Additional info: Cp TECHNIQUE: Imaging protocol: Radiologic exam of the chest. Views: 1 view. COMPARISON: CR XR chest 1V portable [id number] 07/10/2022 11:48 AM FINDINGS: Tubes, catheters and devices: There is a single lead cardiac pacer via left subclavian approach. Findings are stable. Lungs: Fullness in the pulmonary vasculature suggesting volume overload in the lungs. Findings are stable. Pleural spaces: Stable small bilateral pleural effusions. No pneumothorax. Heart/Mediastinum: Stable marked enlargement of the cardiac silhouette. Mediastinal contours are unremarkable. Vasculature: Stable vascular calcifications in the aorta. Bones/joints: Bones are diffusely osteopenic. Degenerative changes in the spine and shoulders. Postsurgical changes consistent with previous spine fusion T7 through T12. Osseous findings are stable. XR/XR chest 1V portable [id number] IMPRESSION: 1. Fullness in the pulmonary vasculature suggesting volume overload in the lungs. Findings are stable. 2. Stable small bilateral pleural effusions. 3. Incidental/nonacute findings are listed in the report.
[2022-08-21 22:50] VITALS: BP 178/65; PULSE 70; RESP 15; O2SAT 96
--- NOTE | 2022-08-21 22:50 | ECG_ITS ---
[facility] Test Date: 2022-08-21 Pat Name: Jesus Saucedo Department: Room: Gender: Male Egg Sorter: : 1935 Requested By: Stephanie Paz Order Number: [id number] Anders MD: Mike Gonzalez M.D. Measurements Intervals [place] Rate: 64 P: 0 [place]: 0 QRS: -2 QRSD: 129 T: -60 QT: 320 QTc: 332 Interpretive Statements Atrial fibrillation with frequent PVCs and nonsustained ventricular tachycardia MODERATE INTRAVENTRICULAR CONDUCTION DELAY [110+ ms QRS DURATION] MARKED ST DEPRESSION, CONSIDER SUBENDOCARDIAL INJURY [0.2+ mV ST DEPRESSION] ACUTE IA Compared to ECG 07/10/2022 12:00:02 ST (T wave) deviation now present Sinus rhythm no longer present First degree AV block no longer present T-wave abnormality no longer present Possible ischemia no longer present Electronically Signed On 08-22-2022 19:30:37 STAMP MAKER by Mike Gonzalez M.D. [id number]
[2022-08-21] MEDS: amiodarone 50 mg/mL SDV 3 mL 150 MG IVP (23:00)
--- NOTE | 2022-08-21 23:04 | ED_ITS ---
HPI - Chest Pain General: Chief Complaint: Chest Pain Stated Complaint: possible heart attack, CP Time Seen by Provider: 08/21/22 22:43 Source: patient Mode of arrival: ambulatory Limitations: no limitations History of Present Illness: 86-year-old male who has a defibrillator he has history of V. tach in the past he feels like that he had had a run of V. tach earlier today at 9:50 PM he states that he had felt lightheaded passed out and his believes a defibrillator went off and shocked him he denies any chest pain he states he had some weakness he denies any vomiting or diarrhea. Associated symptoms: Deny abdominal pain, dyspnea, fever(s), nausea or vomiting Review of Systems Const: Denies: fever(s), chills, body aches or change in appetite Eyes: Denies: blurry vision or eye discomfort ENMT: Denies: throat pain or dental pain Card: Denies: chest pain Resp: Denies: dyspnea GI: Denies: abdominal pain, nausea, vomiting or diarrhea : Denies: dysuria Musc: Denies: neck pain or back pain Skin/Breast: Denies: rash Neuro: Denies: headache(s) Psych: Denies: depression Lyle/Lymph: Denies: easy bruising All/Imm: Denies: urticaria PFSH ED PFSH: Medical History Acute diastolic (congestive) heart failure Acute DE Acute non-ST elevation myocardial infarction (NSTEMI) Acute on chronic systolic heart failure Anemia Anemia Atherosclerosis of coronary artery of [place] heart without angina pectoris Atrial fibrillation Rate control on anticoagulation Cardiomyopathy History of ischemic cardiomyopathy, do not need revascularization, continue optimal medical regimen Chronic kidney disease Coronary artery disease Coronary artery disease Hyperlipidemia Hypertension Well-controlled Sustained VT (ventricular tachycardia) Continue current regimen including beta-ashley, amiodarone. Appear to be stable not in VT anymore. Can be discharged home. Tubular adenoma of colon Ventricular tachycardia Ventricular tachycardia Wide-complex tachycardia Surgical History History of back surgery History of cardiac defibrillator placement Stented coronary artery Family History Mother No problems noted. Father No problems noted. Other CAD (coronary artery disease) Social History Smoking and tobacco status: never smoked Alcohol intake: never Adopted: No Caregiver/support person: Yes Housing: Skilled Nursing Marital status: / Current occupational status: retired Physical Exam Const: COMMON NORMALS: patient oriented x3 GENERAL APPEARANCE: ill appearing HENMT: COMMON NORMALS: normocephalic and atraumatic HEAD & SCALP: normocephalic and atraumatic Eye: COMMON NORMALS: Equal, round and reactive pupils present and EOMs intact bilaterally PUPIL: Yes Equal, round and reactive pupils present Neck/C-Spine: COMMON NORMALS: full ROM and supple Chest: COMMONS NORMALS: normal inspection of the chest and normal palpation of entire chest wall Resp: COMMON NORMALS: normal respiratory effort, No retractions, No use of accessory muscles and clear to auscultation bilaterally AUSCULTATION: clear to auscultation bilaterally Cardio: COMMON NORMALS: regular rate, regular rhythm and No murmurs present (Cardio) RATE: regular rate RHYTHM: regular rhythm GI: COMMON NORMALS: Normal to inspection, nondistended, normoactive bowel sounds present, Soft to palpation, non-tender and no masses PALPATION: Yes Soft to palpation Extremity: COMMON NORMALS: normal to inspection and full ROM Neuro: COMMON NORMALS: patient oriented x3, moves all extremities and no focal motor deficits Psych: COMMON NORMALS: mental status grossly normal, Normal thought process present and cooperative THOUGHT PROCESS: Normal thought process present Skin: COMMON NORMALS: no rashes or lesions noted and no wounds GENERAL SKIN EXAM: no rashes or lesions noted Course Vital Signs: Vital signs: Vital Signs Temperature 97.9 F 08/21/22 22:43 Pulse Rate 55 L 08/22/22 00:15 Respiratory Rate 22 H 08/22/22 00:15 Blood Pressure 169/85 08/22/22 00:15 Pulse Oximetry 95 08/22/22 00:15 Oxygen Delivery Me thod 08/21/22 22:43 MDM - Chest Pain Medical Decision Making Patient presents here after being shocked by his defibrillator at home he is shocked twice here as well when he first arrived I did start you on amiodarone he has had no more runs of V. tach since and he is also hypokalemic him replacing his potassium had no chest pain I spoke to hospitalist horticultural services supervisor will admit. Lab Data 08/21/22 23:00 08/21/22 23:00 Radiology Impressions Chest X-Ray 08/21/22 22:49 IMPRESSION: 1. Fullness in the pulmonary vasculature suggesting volume overload in the lungs. Findings are stable. 2. Stable small bilateral pleural effusions. 3. Incidental/nonacute findings are listed in the report. Laboratory Results WBC 7.6 10^3/uL (4.0-10.0) 08/21/22 23:00 RBC 4.01 10^6/uL (4.1-5.3) L 08/21/22 23:00 Hgb 10.6 g/dL (11.7-16.6) L 08/21/22 23:00 Hct 37.0 % (42.0-52.0) L 08/21/22 23:00 MCV 92.3 fl (80-94) 08/21/22 23:00 MCH 26.4 pg (28.0-34.0) L 08/21/22 23:00 MCHC 28.6 g/dL (30.0-36.0) L 08/21/22 23:00 RDW 24.3 % (12.1-15.1) H 08/21/22 23:00 Plt Count 214 10^3/cmm (130-400) 08/21/22 23:00 MPV 9.6 fL (7.4-10.4) 08/21/22 23:00 Neut % (Auto) 40.9 % 08/21/22 23:00 Lymph % (Auto) 42.6 % 08/21/22 23:00 Mclean % (Auto) 11.6 % 08/21/22 23:00 Eos % (Auto) 4.1 % 08/21/22 23:00 Baso % (Auto) 0.7 % 08/21/22 23:00 Neut # (Auto) 3.11 10^3/uL (1.8-7.7) 08/21/22 23:00 Lymph # (Auto) 3.2 10^3/uL (0.8-4.8) 08/21/22 23:00 Mclean # (Auto) 0.9 10^3/uL (0.2-0.9) 08/21/22 23:00 Eos # (Auto) 0.3 10^3/uL (0.0-0.8) 08/21/22 23:00 Baso # (Auto) 0.1 10^3/uL (0.0-0.1) 08/21/22 23:00 Nucleated RBC % (auto) 0 % 08/21/22 23: Nucleated RBCs # 0.0 /100WBC 08/21/22 23:00 Sodium 140 mmol/L (136-145) 08/21/22 23:00 Potassium 2.3 mmol/L (3.5-5.1) L* 08/21/22 23:00 Chloride 103 mmol/L (98-107) 08/21/22 23:00 Carbon Dioxide 25 mmol/L (22-29) 08/21/22 23:00 Anion Gap 14.3 (5-19) 08/21/22 23:00 BUN 11 mg/dL (8-23) 08/21/22 23:00 Creatinine 1.2 mg/dL (0.7-1.2) 08/21/22 23:00 GFR Calculation Not Reportable 08/21/22 23:00 Glucose 119 mg/dL (65-115) H 08/21/22 23:00 Calculated Osmolality 291 mOsm/kg (285-295) 08/21/22 23:00 Calcium 9.1 mg/dL (8.5-10.5) 08/21/22 23:00 Magnesium 1.9 mg/dL (1.7-2.3) 08/21/22 23:00 Total Bilirubin 0.6 mg/dL (0.15-1.2) 08/21/22 23:00 AST 22 U/L (0-40) 08/21/22 23:00 ALT 13 U/L (0-41) 08/21/22 23:00 Alkaline Phosphatase 110 U/L (40-130) 08/21/22 23:00 Troponin T Baseline 41 ng/L (0-15) H 08/21/22 23:00 Total Protein 7.2 g/dL (6.6-8.7) 08/21/22 23:00 Albumin 3.9 g/dL (3.5-5.2) 08/21/22 23:00 Globulin 3.3 g/dL (1.3-4.6) 08/21/22 23:00 Critical Care Time Critical Care Time: Critical Care Time: Yes Total Critical Care Time: 50 Attestation: The high probability of a clinically significant, sudden or life threatening deterioration of the patient's cv system(s) required my full and direct attention, intervention and personal management. The critical care time is as shown. This time is in addition to time spent performing any reported procedures but includes the following: [x] Data and vital sign review and interpretation [x] Patient assessment, examination and intervention [x] Documentation [x] Medication orders and management Discharge Plan Discharge Patient Disposition: Admitted As Inpatient Clinical Impression: Ventricular tachycardia, Hypokalemia Condition: Stable Prescriptions: No Action acetaminophen [Tylenol Extra Strength] 500 mg tablet 500 mg PO Q6H PRN (Reason: Pain) metoprolol tartrate 25 mg tablet 12.5 mg PO BID Qty: 60 3RF lidocaine [Salonpas (lidocaine)] 4 % adhesive patch,medicated 1 patch topical DAILY PRN (Reason: Pain) (DME) Thumb Spica See Rx Instructions .Route .MEDSUPPLY Qty: 1 0RF Rx Instructions: As directed. clopidogrel 75 mg tablet 75 mg PO QAM Qty: 90 3RF Hold Instructions: Resume on 06/06/22. Eliquis 5 mg tablet 5 mg PO BID@,19 Qty: 180 3RF Hold Instructions: Resume on 08/08/22. nitroglycerin 0.4 mg tablet, sublingual 0.4 mg sublingual Q5MIN PRN (Reason: Chest Pain) rosuvastatin 40 mg tablet 40 mg PO BEDTIME Centrum Silver 400-250 mcg Tablet,Chewable 1 tab PO DAILY levothyroxine 75 mcg tablet 75 mcg PO QAM hydrocodone-acetaminophen 5-325 mg tablet 1 tab PO Q6H PRN (Reason: pain) Qty: 14 0RF albuterol sulfate 90 mcg/actuation HFA aerosol inhaler 2 puff INHALATION Q6H PRN (Reason: Shortness Of Breath) amiodarone 200 mg tablet 200 mg PO BID Qty: 180 3RF bumetanide 1 mg tablet 1 mg PO BID Qty: 60 0RF potassium chloride 20 mEq tablet extended release 20 meq PO BID Qty: 60 2RF Feosol 325 mg (65 mg iron) tablet 325 mg PO DAILY Qty: 90 1RF Miralax 17 gram/dose powder 4 g PO DAILY PRN (Reason: constipation) Qty: 119 0RF Referrals: Gene Peralta [Primary Care Provider] - Coding Level of Care Code ED Curator Of Photography And Prints for Chg Garcia
--- NOTE | 2022-08-21 23:04 | PC.NURSE ---
Patient went into vtach on bedside monitor, near snycopal. Dr at bedside. Ordered amio bolus and drip. Patient ICD fired. Patient did not remember what happened after shock happened.
[2022-08-21 23:06] VITALS: BP 176/81; PULSE 69; RESP 21; O2SAT 94
[2022-08-21 23:07] LABS: Basophils # 0.1 10^3/uL (0.0-0.1); Basophils % 0.7 %; Eosinophils # 0.3 10^3/uL (0.0-0.8); Eosinophils % 4.1 %; Hemoglobin 10.6 g/dL (11.7-16.6); Lymphocytes # 3.2 10^3/uL (0.8-4.8); Lymphocytes % 42.6 %; Mean Corpuscular HGB Conc 28.6 g/dL (30.0-36.0); Mean Corpuscular Hemoglobin 26.4 pg (28.0-34.0); Mean Corpuscular Volume 92.3 fl (80-94); Mean Platelet Volume 9.6 fL (7.4-10.4); Monocytes # 0.9 10^3/uL (0.2-0.9); Monocytes % 11.6 %; Neutrophils # 3.11 10^3/uL (1.8-7.7); Neutrophils % 40.9 %; Nucleated Red Blood Cells % 0 %; Platelet Count 214 10^3/cmm (130-400); Red Blood Count 4.01 10^6/uL (4.1-5.3); Red Cell Distribution Width 24.3 % (12.1-15.1); White Blood Count 7.6 10^3/uL (4.0-10.0)
[2022-08-21 23:25] LABS: Troponin(5th) Baseline 41 ng/L (0-15)
[2022-08-21 23:26] LABS: Alanine Aminotransferase 13 U/L (0-41); Albumin Level 3.9 g/dL (3.5-5.2); Alkaline Phosphatase 110 U/L (40-130); Anion Gap 14.3 (5-19); Aspartate Amino Transferase 22 U/L (0-40); Blood Urea Nitrogen 11 mg/dL (8-23); Calcium 9.1 mg/dL (8.5-10.5); Carbon Dioxide 25 mmol/L (22-29); Chloride 103 mmol/L (98-107); Globulin 3.3 g/dL (1.3-4.6); Glucose 119 mg/dL (65-115); Osmolality Calculated 291 mOsm/kg (285-295); Sodium 140 mmol/L (136-145); Total Bilirubin 0.6 mg/dL (0.15-1.2); Total Protein 7.2 g/dL (6.6-8.7)
[2022-08-21 23:30] VITALS: BP 163/71; PULSE 59; RESP 20; O2SAT 97
[2022-08-21 23:34] LABS: Potassium 2.3 mmol/L (3.5-5.1)
[2022-08-21] MEDS: potassium chloride ER 20 mEq Tablet 60 MEQ PO (23:45)
[2022-08-21] MEDS: potassium chloride premix 100 ML 25 MEQ IV (23:46)
[2022-08-22] VITALS (98 sets, daily range): BP systolic 121–176; BP diastolic 67–102; PULSE 50–84; RESP 14–30; TEMP 36.6–37.1; O2SAT 85–98; BMI 26.9
[2022-08-22] MEDS: sodium chloride 0.9% 250 ML 65 ML IV (00:05)
[2022-08-22 00:07] LABS: Magnesium 1.9 mg/dL (1.7-2.3)
--- NOTE | 2022-08-22 00:37 | USCV_ITS ---
Willis Saucedomie Age: 86 Gender: M : 1935 Exam Date: 08/22/2022 08:04 Ordering Phys: Giovani Moses MD Technologist: ERINN [place] [facility] [place] ef BP: / HR: 57 Rhythm: Atrial fibrillation Technical Quality: Adequate MEASUREMENTS (Male / Female) Normal Values 2D ECHO LV Diastolic Diameter PLAX 7.2 cm 4.2 - 5.9 / 3.9 - 5.3 cm LV Systolic Diameter PLAX 4.9 cm IVS Diastolic Thickness 0.8 cm 0.6 - 1.0 / 0.6 - 0.9 cm IVS Systolic Thickness 1.3 cm LVPW Diastolic Thickness 0.9 cm 0.6 - 1.0 / 0.6 - 0.9 cm LVPW Systolic Thickness 1.1 cm LVOT Diameter 2.1 cm LV Ejection Fraction 2D Teich 58.1 % LV Ejection Fraction MOD 2C 20.0 % LV Ejection Fraction 2C AL 18.7 % LA Diameter 5.4 cm M-MODE Aortic Annulus Diameter 3.0 cm LA Ao Ratio MM 2.0 MV E Point Septal Separation 2.3 cm DOPPLER AV Peak Velocity 144.0 cm/s LVOT Peak Velocity 79.0 cm/s AV Area Cont Eq vti 1.6 cm squared AV Area Cont Eq pk 1.9 cm squared MV Area PHT 5.5 cm squared Mitral E to A Ratio 2.5 MV E' Velocity 80.0 cm/s Mitral E to MV E' Ratio 19.0 Mitral E to LV E' Lateral Ratio 15.8 Mitral E to LV E' Septal Ratio 24.2 TR Peak Velocity 435.3 cm/s TR Peak Gradient 75.8 mmHg Right Atrial Pressure 9.0 mmHg Pulmonary Artery Systolic Pressu 84.8 mmHg PV Peak Velocity 64.0 cm/s FINDINGS Left Ventricle Diffuse hypokinesia of the left ventricule with an LV ejection fraction of 40%. Mildly dilated left-ventricule. Grade III/IV diastolic dysfunction (restrictive filling pattern), severely elevated filling pressures. Right Ventricle Normal size ejection fraction. Pacemaker wire is noted Right Atrium Moderately increased right atrial size. Pacemaker wire is noted Left Atrium Moderately increased left atrial size. Mitral Valve Thickened mitral valve. Mild mitral annular calcification. Possibly severe mitral valve regurgitation. Aortic Valve Thickened aortic valve. Trace to mild aortic valve regurgitation. Tricuspid Valve Moderate tricuspid valve regurgitation. Severe pulmonary hypertension with an estimated pulmonary artery peak systolic pressure of 111 mmHg. Pulmonic Valve No gross abnormality noted Pericardium No pericardial effusion. Aorta Normal size aortic root and proximal ascending aorta. IVC Inferior vena cava not visualized. CONCLUSIONS Diffuse hypokinesia of the left ventricule with an ejection fraction of 40%. Mildly dilated left-ventricule. Grade III/IV diastolic dysfunction (restrictive filling pattern), severely elevated filling pressures. Moderate biatrial enlargement Normal RV size ejection fraction. Thickened mitral valve. Mild mitral annular calcification. Possibly severe mitral valve regurgitation. Thickened aortic valve. Trace to mild aortic valve regurgitation. Moderate tricuspid valve regurgitation. Severe pulmonary hypertension with an estimated pulmonary artery peak systolic pressure of 111 mmHg. There is no pericardial effusion. There are no intracardiac masses. Compared to the study from 04/03/2022, there may not be a significant change. Dr Mike Gonzalez MD [facility] (Electronically Signed) Final Date: 22 August 2022 17:39 S
--- NOTE | 2022-08-22 00:49 | ECG_ITS ---
[facility] Test Date: 2022-08-22 Pat Name: Jesus Saucedo Department: Room: Gender: Male Hoop Expander: : 1935 Requested By: Stephanie Paz Order Number: [id number] Anders MD: Mike Gonzalez M.D. Measurements Intervals [place] Rate: 54 P: 0 [place]: 0 QRS: 39 QRSD: 164 T: -40 QT: 522 QTc: 499 Interpretive Statements Normal sinus rhythm with a first-degree AV block Nonspecific T wave changes INTRAVENTRICULAR CONDUCTION DELAY [130+ ms QRS DURATION] Compared to ECG 08/21/2022 22:50:28 ST (T wave) deviation no longer present Electronically Signed On 08-22-2022 19:36:49 BLOW MOLD MACHINE OPERATOR by Mike Gonzalez M.D. [email or web address] [email or web address] Breezeholmes [email or web address].[email or web address]/[id number]
--- NOTE | 2022-08-22 01:03 | PM.HP ---
Providers/Chief Complaint Admitting Physician: Giovani Moses MD Primary Care Provider: Gene Peralta Chief Complaint: possible heart attack, CP History of Present Illness Jesus Saucedo is a 86 year old male with past medical history of hypertension, hypothyroidism, coronary artery disease, ischemic cardiomyopathy, heart failure with preserved ejection fraction, history of VT AICD in place, chronic anemia, atrial fibrillation, on Eliquis, came in today with chief complaint of after feeling lightheaded and passed out, he felt that his defibrillator went off and shocked him,In Er he was shocked twice for VT, subsequent lab work revealed hypokalemia, patient was started on amnio drip, hypokalemia correction was started. Patient denies any chest pain, shortness of breath, nausea vomiting palpitation fever cough. X-ray chest chest has shown: Pulmonary vascular congestion, small bilateral pleural effusion. EKG: A-fib with slow ventricular response. Pertinent labs: WBC 7.6, H&H 10.6/37, PLT : 214 , sodium 140 potassium 2.3, BUN 11, SCR: 1.2 , Baseline troponin 41 Review of Systems General: Reports: 10 or more systems reviewed and unremarkable except in HPI and below Const: Denies: fever(s), chills, body aches, change in appetite or diaphoresis Card: Denies: palpitations, edema, swelling of feet/ankles, dyspnea on exertion, orthopnea or leg pain with exertion Resp: Denies: dyspnea, productive cough, wheezing or pain on inspiration GI: Denies: abdominal pain, nausea, vomiting, diarrhea or constipation : Denies: flank pain or difficulty urinating Musc: Denies: back pain, extremity pain or extremity swelling Neuro: Denies: headache(s), difficulty walking or confusion Medications/Allergies Home Medications Medication Instructions Recorded Confirmed Last Taken Type nitroglycerin 0.4 mg sublingual 0.4 mg sublingual Q5MIN PRN Chest 04/12/21 07/27/22 Unknown History tablet Pain rosuvastatin 40 mg tablet 40 mg PO BEDTIME 04/12/21 07/27/22 07/09/22 History multivit with min-folic 1 tab PO DAILY 04/25/21 07/27/22 07/10/22 History acid-lutein 400 mcg-250 mcg chewable tablet (Centrum Silver) acetaminophen 500 mg tablet 500 mg PO Q6H PRN Pain 05/21/21 07/27/22 06/01/22 History (Tylenol Extra Strength) Thumb Spica #1 ea 02/26/22 07/22/22 Unknown Rx levothyroxine 75 mcg tablet 75 mcg PO QAM 03/02/22 07/27/22 07/10/22 History albuterol sulfate 90 mcg/actuation 2 puff inhalation Q6H PRN 03/04/22 07/27/22 06/01/22 History aerosol inhaler Shortness Of Breath metoprolol tartrate 25 mg tablet 12.5 mg PO BID #60 tabs 03/25/22 07/27/22 07/10/22 Rx lidocaine 4 % topical patch 1 patch topical DAILY PRN Pain 04/13/22 07/27/22 Unknown History (Salonpas (lidocaine)) clopidogrel 75 mg tablet 75 mg PO QAM #90 tabs 05/11/22 07/27/22 07/10/22 Rx hydrocodone 5 mg-acetaminophen 325 1 tab PO Q6H PRN pain #14 tabs 07/06/22 07/27/22 Unknown Rx mg tablet apixaban 5 mg tablet (Eliquis) 5 mg PO BID@07,19 #180 tabs 07/08/22 07/22/22 07/10/22 Rx amiodarone 200 mg tablet 200 mg PO BID #180 tabs 07/11/22 07/27/22 07/10/22 Rx bumetanide 1 mg tablet 1 mg PO BID #60 tabs 07/11/22 07/27/22 07/10/22 Rx ferrous sulfate 325 mg (65 mg 325 mg PO DAILY #90 tabs 07/11/22 07/27/22 Unknown Rx iron) tablet (Feosol) polyethylene glycol 3350 17 4 g PO DAILY PRN constipation #119 07/11/22 07/27/22 Unknown Rx gram/dose oral powder (Miralax) grams potassium chloride 20 mEq 20 meq PO BID #60 tabs 07/11/22 07/27/22 07/10/22 Rx tablet,extended release Allergies Allergy/AdvReac Type Severity Reaction Status Date / Time JACKIE Inhibitors Allergy Unknown Unknown Verified 08/21/22 22:50 aspirin Allergy ALGY-Hives Verified 08/21/22 22:50 Latex, Natural Rubber Allergy ALGY-Rash Verified 08/21/22 22:50 PFSH Acute PFSH: Medical History Acute diastolic (congestive) heart failure Acute DC Acute non-ST elevation myocardial infarction (NSTEMI) Acute on chronic systolic heart failure Anemia Anemia Atherosclerosis of coronary artery of [place] heart without angina pectoris Atrial fibrillation Rate control on anticoagulation Cardiomyopathy History of ischemic cardiomyopathy, do not need revascularization, continue optimal medical regimen Chronic kidney disease Coronary artery disease Coronary artery disease Hyperlipidemia Hypertension Well-controlled Sustained VT (ventricular tachycardia) Continue current regimen including beta-ashley, amiodarone. Appear to be stable not in VT anymore. Can be discharged home. Tubular adenoma of colon Ventricular tachycardia Ventricular tachycardia Wide-complex tachycardia Surgical History History of back surgery History of cardiac defibrillator placement Stented coronary artery Family History Mother No problems noted. Father No problems noted. Other CAD (coronary artery disease) Social History Smoking and tobacco status: never smoked Alcohol intake: never Adopted: No Caregiver/support person: Yes Housing: [facility] Marital status: / Current occupational status: retired Vitals/I&O/Wt Last Vital Signs Temp 97.9 F 08/21/22 22:43 Pulse 52 L 08/22/22 00:30 Resp 18 08/22/22 00:30 BP 163/76 08/22/22 00:30 Pulse Ox 93 08/22/22 00:30 O2 Del Method 08/21/22 22:43 Weight last 48 hrs Weight 86.636 kg Physical Exam Const: COMMON NORMALS: patient oriented x3 HENMT: COMMON NORMALS: normocephalic and atraumatic HEAD & SCALP: normocephalic and atraumatic Resp: COMMON NORMALS: clear to auscultation bilaterally EFFORT & INSPECTION: Yes symmetric chest movement AUSCULTATION: clear to auscultation bilaterally Cardio: COMMON NORMALS: regular rate, regular rhythm, S1 normal heart sound present, S2 normal heart sound present, No gallops present (Cardio), No murmurs present (Cardio), No rub (Cardio) and Peripheral pulses 2+ throughout RATE: regular rate RHYTHM: regular rhythm HEART SOUNDS: S1 normal heart sound present and S2 normal heart sound present PERIPHERAL PULSES: Peripheral pulses 2+ throughout GI: COMMON NORMALS: Normal to inspection, nondistended, normoactive bowel sounds present, Soft to palpation, non-tender, No hepatosplenomegaly present and no masses AUSCULTATION: Yes normoactive bowel sounds PALPATION: Yes Soft to palpation and Yes No hepatosplenomegaly present RECTAL EXAM: Yes deferred Extremity: NARRATIVE EXTREMITY EXAM: Bilateral 2+ lower extremity pitting edema Neuro: COMMON NORMALS: patient oriented x3 Data 08/21/22 23:00 08/21/22 23:00 A&P Assessment and plan (1) Hypokalemia: (2) AICD discharge: (3) Acute on chronic diastolic (congestive) heart failure: (4) Coronary artery disease: (5) Ventricular tachycardia: Plan 86 year old male with past medical history of hypertension, hypothyroidism, coronary artery disease, ischemic cardiomyopathy, heart failure with preserved ejection fraction, history of VT AICD in place, chronic anemia, atrial fibrillation, on Eliquis, came in today with chief complaint of after feeling lightheaded and passed out, he felt that his defibrillator went off and shocked him,In Er he was shocked twice for VT, subsequent lab work revealed hypokalemia, patient was started on amnio drip, hypokalemia correction was started. Patient denies any chest pain, shortness of breath, nausea vomiting palpitation fever cough. Assessment: Ventricular tachycardia: Status post AICD discharge Most recent 2D echo done in 03/2022: LV systolic function is normal with EF 55 to 55%.?Left atrial dilation seen,?Mild mitral regurgitation,?Aortic valve is thickened.? Mild aortic stenosis. Mild aortic,regurgitation,Mild tricuspid regurgitation. Follow-up repeat limited 2D echo Troponin Trend : X-ray chest chest has shown: Pulmonary vascular congestion, small bilateral pleural effusion. EKG: A-fib with slow ventricular response. Monitor serum potassium: Correct for goal of serum potassium greater than 4 Monitor serum magnesium correct for goal greater than 2 Continue amnio drip, if needed lidocaine drip Continue p.o. amiodarone Continue p.o. metoprolol Cardiology on board Hypokalemia: Monitor and replace serum potassium History of atrial fibrillation: Currently heart rate is well controlled Continue p.o. amiodarone metoprolol currently on hold as h/r is on lower side. He is on Eliquis at home, for now we will keep him on therapeutic Lovenox HFpEF: Mildly decompensated. Follow repeat limited 2D echo Patient is complaining of mild shortness of breath at home, Has bilateral 2+ lower extremity pitting edema X-ray chest is suggestive of pulmonary vascular congestion proBNP We will start him on Bumex 1 mg IV daily Monitor intake output charting Monitor electrolytes Monitor weight Continue telemetry monitoring History of coronary artery disease: History of hypothyroidism: Am TSH : Continue levothyroxine CODE STATUS: Full code DVT prophylaxis not needed: On therapeutic anticoagulation with Lovenox Attestations Medical Necessity Statement*: Patient is to be in hospital for management of VT. anticipate length of stay greater than 2 midnights Time Spent in Patient Care: Greater than 35 minutes Critical Care Time: The high probability of a clinically significant, sudden or life threatening deterioration of the patient's [] system(s) required my full and direct attention, intervention and personal management. The critical care time is as shown. This time is in addition to time spent performing any reported procedures but includes the following: [x] Data and vital sign review and interpretation [x] Patient assessment, examination and intervention [x] Documentation [x] Medication orders and management Critical Care Time (min): 40 Coding Level of Care Code Critical Care >/= 30 minutes Diagnoses Hypokalemia E87.6 AICD discharge Z45.02 Acute on chronic diastolic (congestive) heart failure I50.33 Coronary artery disease I25.10 Ventricular tachycardia I47.2
[2022-08-22 01:19] LABS: Troponin 5 2HR 43.62 ng/L (0-15)
[2022-08-22 01:25] LABS: Troponin 5 2HR Delta 2.62 ABS# (0-10)
--- NOTE | 2022-08-22 04:49 | ECG_ITS ---
[facility] Test Date: 2022-08-22 Pat Name: Jesus Saucedo Department: Room: ICU11 Gender: Male Fraud Examiner: : 1935 Requested By: Stephanie Paz Order Number: [id number] Anders MD: Mike Gonzalez M.D. Measurements Intervals Rodman Rate: 54 P: 0 HI: 0 QRS: 27 QRSD: 131 T: -71 QT: 393 QTc: 375 Interpretive Statements Sinus rhythm with a first-degree AV block. Nonspecific T wave change INTRAVENTRICULAR CONDUCTION DELAY [130+ ms QRS DURATION] POSSIBLE LEFT VENTRICULAR HYPERTROPHY [VOLTAGE CRITERIA PLUS LAE OR QRS WIDENING] Compared to ECG 08/22/2022 00:21:11 No significant changes Electronically Signed On 08-22-2022 19:37:33 ADJUNCT PHYSICAL EDUCATION INSTRUCTOR by Mike Gonzalez M.D. [id number]
[2022-08-22] MEDS: levothyroxine 75 mcg Tablet PO (05:05)
[2022-08-22] MEDS: clopidogrel 75 mg Tablet PO (05:05)
[2022-08-22 05:58] LABS: Troponin 5 6HR 46.09 ng/L (0-15)
[2022-08-22 06:01] LABS: Troponin 5 6HR Delta 5.09 ng/L (0-12)
[2022-08-22 06:08] LABS: NT Pro B Type Natriuretic Pept 2582 pg/mL (0-450)
[2022-08-22 06:40] LABS: Basophils % 0.5 %; Eosinophils % 0.4 %; Hematocrit 32.1 % (42.0-52.0); Hemoglobin 9.4 g/dL (11.7-16.6); Lymphocytes # 1.3 10^3/uL (0.8-4.8); Lymphocytes % 23.2 %; Mean Corpuscular HGB Conc 29.3 g/dL (30.0-36.0); Mean Corpuscular Hemoglobin 26.6 pg (28.0-34.0); Mean Corpuscular Volume 90.9 fl (80-94); Mean Platelet Volume 10.3 fL (7.4-10.4); Monocytes # 0.5 10^3/uL (0.2-0.9); Monocytes % 9.4 %; Neutrophils # 3.66 10^3/uL (1.8-7.7); Neutrophils % 66.3 %; Nucleated Red Blood Cells % 0 %; Platelet Count 193 10^3/cmm (130-400); Red Blood Count 3.53 10^6/uL (4.1-5.3); White Blood Count 5.5 10^3/uL (4.0-10.0)
[2022-08-22 06:51] LABS: Anion Gap 14.1 (5-19); Blood Urea Nitrogen 9 mg/dL (8-23); Calcium 8.7 mg/dL (8.5-10.5); Carbon Dioxide 23 mmol/L (22-29); Chloride 102 mmol/L (98-107); Creatinine Clr Calc Pharmacy 55.0879; Glucose 111 mg/dL (65-115); Osmolality Calculated 281 mOsm/kg (285-295); Potassium 3.1 mmol/L (3.5-5.1); Sodium 136 mmol/L (136-145)
[2022-08-22] MEDS: potassium chloride ER 20 mEq Tablet PO ×2 (08:38→17:05)
[2022-08-22] MEDS: ferrous sulfate EC 325 mg Tablet PO (08:38)
[2022-08-22] MEDS: amiodarone 200 mg Tablet PO ×2 (08:38→17:05)
[2022-08-22] MEDS: enoxaparin 100 mg/mL Syringe 90 MG SUBCUT ×2 (08:39→20:19)
[2022-08-22] MEDS: bumetanide 0.25 mg/mL SDV 4 mL 1 MG IVP (08:39)
--- NOTE | 2022-08-22 11:03 | P.CONIM_ITS ---
Providers/Reason For Consult Consulting Physician/Specialty*: FIORDALIZA Gonzalez MD/cardiology Reason for Consult*: Patient with recurrent recurrent episodes of syncope, found to have recurrent ventricular tachycardia on the ICD telemetry. Requesting Physician: Dr. Covington Attending Physician: Charley Covington MD Primary Care Provider: Gene Peralta History of Present Illness History of Present Illness Jesus Saucedo is a 86 year old male with a history of coronary artery disease, status post PCI of the ostial RCA lesion and proximal LAD lesion, chronic anemia, history of high blood pressure, atrial fibrillation, diastolic heart failure, dyslipidemia and multiple other medical problems, apparently had an episode of passing out spell at home. He had another spell in the emergency room. He was found to have episodes of ventricular tachycardia on the device telemetry. Interrogation of the ICD revealed an episode of ventricular fibrillation which was successfully cardioverted to sinus with a single 36 J. He also had episodes of ventricular tachycardia which were successfully treated with overdrive pacing. He had several episodes of nonsustained ventricular tachycardia as well. Patient denies any chest pain or chest tightness. No fever, chills or cough. She was taking diuretics as prescribed. He was found to have a potassium level of 2.1 in the emergency room. He was started on IV amiodarone and potassium supplement. Currently the patient is remaining symptom-free. Has not had any recurrence of VT since the amiodarone was started. The potassium level is slowly coming up. This patient had several episodes ventricular tachycardia over the last couple of years. In April 2021, he initially presented with ventricular tachycardia associated with ischemic EKG changes. His cardiac catheterization at that time revealed a high-grade ostial lesion of the right coronary artery and proximal high-grade lesion in the left artery descending artery. He underwent angioplasty and stent placement of these lesions. A week later, he presented with ventricular tachycardia again. This time also he was found to have ST depressions in the inferior leads after the event. Subsequent cardiac catheterization revealed possible stent occlusion in the ostium of the right coronary artery. He underwent angioplasty of the ostium at that point. In July of this year(2022), he was admitted to the hospital with another ep isode of ventricular tachycardia. He was severely anemic at that time. In fact he came to the hospital for a scheduled outpatient blood transfusion. He had the tachycardia at that time. He has been doing okay up until this current event. He has been compliant with medications. He was on amiodarone of 400 mg p.o. daily Review of Systems Narrative: CONSTITUTIONAL: No fever or chills. EYES: No blurring of vision or other visual disturbances lately. ENT: No hoarseness of voice, auditory disturbances or sore throat. CARDIOVASCULAR: As mentioned above. RESPIRATORY: No significant cough. GASTROINTESTINAL: No hematemesis or melena. GENITOURINARY: No dysuria or hematuria. INTEGUMENTARY: No skin rashes or history of skin cancer. NEURO: No transient ischemic attacks or amaurosis. PSYCHIATRIC: No history of psychosis or major depression. HEMATOLOGIC: No bleeding disorders or significant anemia. ENDOCRINE: No history of polyuria or polydipsia. MUSCULOSKELETAL: No recent joint pain or swelling. ALLERGY/IMMUNOLOGY: As mentioned above. Medications/Allergies Home Medications Medication Instructions Recorded Confirmed Last Taken Type nitroglycerin 0.4 mg sublingual 0.4 mg sublingual Q5MIN PRN Chest 04/12/21 08/22/22 Unknown History tablet Pain rosuvastatin 40 mg tablet 40 mg PO BEDTIME 04/12/21 08/22/22 07/09/22 History multivit with min-folic 1 tab PO DAILY 04/25/21 08/22/22 07/10/22 History acid-lutein 400 mcg-250 mcg chewable tablet (Centrum Silver) acetaminophen 500 mg tablet 500 mg PO Q6H PRN Pain 05/21/21 08/22/22 06/01/22 History (Tylenol Extra Strength) Thumb Spica #1 ea 02/26/22 08/22/22 Unknown Rx levothyroxine 75 mcg tablet 75 mcg PO QAM 03/02/22 08/22/22 07/10/22 History albuterol sulfate 90 mcg/actuation 2 puff inhalation Q6H PRN 03/04/22 08/22/22 06/01/22 History aerosol inhaler Shortness Of Breath metoprolol tartrate 25 mg tablet 12.5 mg PO BID #60 tabs 03/25/22 08/22/22 07/10/22 Rx lidocaine 4 % topical patch 1 patch topical DAILY PRN Pain 04/13/22 08/22/22 Unknown History (Salonpas (lidocaine)) clopidogrel 75 mg tablet 75 mg PO QAM #90 tabs 05/11/22 08/22/22 07/10/22 Rx hydrocodone 5 mg-acetaminophen 325 1 tab PO Q6H PRN pain #14 tabs 07/06/22 08/22/22 Unknown Rx mg tablet apixaban 5 mg tablet (Eliquis) 5 mg PO BID@07,19 #180 tabs 07/08/22 08/22/22 07/10/22 Rx amiodarone 200 mg tablet 200 mg PO BID #180 tabs 07/11/22 08/22/22 07/10/22 Rx ferrous sulfate 325 mg (65 mg 325 mg PO DAILY #90 tabs 07/11/22 08/22/22 Unknown Rx iron) tablet (Feosol) polyethylene glycol 3350 17 4 g PO DAILY PRN constipation #119 07/11/22 08/22/22 Unknown Rx gram/dose oral powder (Miralax) grams potassium chloride 20 mEq 20 meq PO BID #60 tabs 07/11/22 08/22/22 07/10/22 Rx tablet,extended release bumetanide 1 mg tablet 2 mg PO BID 08/22/22 08/22/22 Unknown History Allergies Allergy/AdvReac Type Severity Reaction Status Date / Time JACKIE Inhibitors Allergy Unknown Unknown Verified 08/21/22 22:50 aspirin Allergy ALGY-Hives Verified 08/21/22 22:50 Latex, Natural Rubber Allergy ALGY-Rash Verified 08/21/22 22:50 Current Medications Generic Name Dose Route Start Last Admin Trade Name Freq PRN Reason Stop Dose Admin Amiodarone HCl 200 mg 08/22/22 09:00 08/22/22 08:38 Amiodarone 200 Mg Tablet PO 200 mg BID RICARDO Administration Bumetanide 1 mg 08/22/22 09:00 08/22/22 08:39 Bumetanide 0.25 Mg/Ml Sdv 4 Ml IVP 1 mg DAILY RICARDO Administration Clopidogrel Bisulfate 75 mg 08/22/22 06:00 08/22/22 05:05 Clopidogrel 75 Mg Tablet PO 75 mg QAM RICARDO Administration Enoxaparin Sodium 90 mg 08/22/22 08:00 08/22/22 08:39 Enoxaparin 100 Mg/Ml Syringe 1 mg/kg (90 mg) 90 mg SUBCUT Administration Q12H COUNT INCLUDES THE [facility] Ferrous Sulfate 325 mg 08/22/22 09:00 08/22/22 08:38 Ferrous Sulfate Ec 325 Mg Tablet PO 325 mg DAILY RICARDO Administration Amiodarone HCl 900 mg/ 518 mls @ 0 mls/hr 08/21/22 23:00 08/22/22 05:10 Dextrose/ IV Miscellaneous IV 0.5 mg/min Supplies .Q0M RICARDO 17.27 mls/hr Titration Protocol Per Protocol Levothyroxine Sodium 75 mcg 08/22/22 06:00 08/22/22 05:05 Levothyroxine 75 Mcg Tablet PO 75 mcg QAM RICARDO Administration Potassium Chloride 20 meq 08/22/22 09:00 08/22/22 08:38 Potassium Chloride Er 20 Meq Tablet PO 20 meq BID RICARDO Administration PFSH Acute PFSH: Medical History Acute diastolic (congestive) heart failure Acute AR Acute non-ST elevation myocardial infarction (NSTEMI) Acute on chronic systolic heart failure Anemia Anemia Atherosclerosis of coronary artery of [place] heart without angina pectoris Atrial fibrillation Rate control on anticoagulation Cardiomyopathy History of ischemic cardiomyopathy, do not need revascularization, continue optimal medical regimen Chronic kidney disease Coronary artery disease Coronary artery disease Hyperlipidemia Hypertension Well-controlled Sustained VT (ventricular tachycardia) Continue current regimen including beta-ashley, amiodarone. Appear to be stable not in VT anymore. Can be discharged home. Tubular adenoma of colon Ventricular tachycardia Ventricular tachycardia Wide-complex tachycardia Surgical History History of back surgery History of cardiac defibrillator placement Stented coronary artery Family History Mother No problems noted. Father No problems noted. Other CAD (coronary artery disease) Social History Smoking and tobacco status: never smoked Alcohol intake: never Adopted: No Caregiver/support person: Yes Housing: [facility] Marital status: / Current occupational status: retired Vitals/I&O/Wt Last Vital Signs Temp 98.2 F 08/22/22 08:15 Pulse 58 L 08/22/22 10:30 Resp 18 08/22/22 10:30 BP 159/74 08/22/22 10:30 Pulse Ox 95 08/22/22 10:30 O2 Del Method 08/22/22 08:15 08/21/22 08/22/22 08/22/22 22:59 06:59 14:59 Intake Total 206.029 / 206.029 Output Total 405 / 405 150 / 150 Balance -198.971 / -198.971 -150 / -150 Weight last 48 hrs Weight 188 lb Weight 188 lb Weight 191 lb Physical Exam Narrative: GENERAL: The patient is alert and oriented times three. Not in any acute distress. HEENT: No significant pallor, icterus or lymphadenopathy.Oral cavity: There are no mucous membrane lesions. NECK: Trachea appears to be central. No masses noted. No JVD or thyromegaly appreciated. RESPIRATORY: Chest is symmetrical. No intercostals muscle retraction or any accessory muscle activation. There is no chest wall tenderness. Breath sounds are heard bilaterally. No rales or rhonchi heard. No evidence of any consolidation. BREASTS: Deferred. HEART: The heart sounds are normal. No S3 or S4. Short systolic murmur in the left sternal border. No diastolic murmurs. No pericardial rub ABDOMEN: No vessel pulsations or distention. No tenderness. No organomegaly appreciated. Bowel sounds are normally heard. : Deferred. RECTAL: Deferred. LYMPHATIC: No lymphadenopathy noted in the neck. EXTREMITIES: No edema or cyanosis. No clubbing. MUSCULOSKELETAL: No acute joint deformities or swelling SKIN: There are no significant rashes or ecchymosis NEUROPSYCHIATRIC: The patient is alert and oriented x3. Appears to be in a good mood. No tremors or rigidity noted. Data 08/22/22 05:10 08/22/22 05:10 EKG 1: My Interpretation: The EKG revealed sinus rhythm with diffuse nonspecific ST-T changes. QTc was found to be prolonged 569 A&P Assessment and plan (1) AICD discharge: Most likely arrhythmia was precipitated with severe hypokalemia. The potassium level is improving. At this point, once the potassium level is returned to normal, I may discontinue the IV amiodarone. May continue on amiodarone 400 mg p.o. daily. Patient also needs with potassium supplement (2) Hypokalemia: Continue to correct the hypokalemia (3) Acute on chronic diastolic (congestive) heart failure: Currently seems compensated. (4) Anemia: The hemoglobin seems to be fairly stable at this time. (5) Ventricular tachycardia: No recurrence of ventricular tachycardia since the hospital admission. I may discontinue the IV amiodarone once the potassium is corrected. Continue on the p.o. dose of the amiodarone, 400 mg daily. (6) Hyperlipidemia: Continue on the current medications. We will go ahead and do a repeat echocardiogram to reevaluate the LV systolic function Plan Patient did not require any other intervention at this point. May continue on the other current medications as it is. Consult Attestations Medical Necessity Statement: Patient requires continued hospital stay for close monitoring and further management Coding Level of Care Code 08315 Diagnoses AICD discharge Z45.02 Hypokalemia E87.6 Acute on chronic diastolic (congestive) heart failure I50.33 Anemia D64.9 Ventricular tachycardia I47.2 Hyperlipidemia E78.5
[2022-08-22] MEDS: lidocaine 1% 5 ML in potassium chloride premix 100 ML 26.25 ML IV (11:14)
--- NOTE | 2022-08-22 11:38 | PM.MISC ---
Miscellaneous Note Note: seen today replete electrolytes cardio consult appreciated patient chest pain free feels ok at this time AOx3 lungs clear abdomen soft normal s1, s2 continue with amio drip
[2022-08-22] MEDS: ondansetron 2 mg/ML SDV 2 mL 4 MG IVP (12:58)
[2022-08-22 16:18] LABS: Anion Gap 12.5 (5-19); Blood Urea Nitrogen 8 mg/dL (8-23); Calcium 8.9 mg/dL (8.5-10.5); Carbon Dioxide 23 mmol/L (22-29); Chloride 101 mmol/L (98-107); Creatinine Clr Calc Pharmacy 55.0879; Glucose 114 mg/dL (65-115); Osmolality Calculated 275 mOsm/kg (285-295); Potassium 3.5 mmol/L (3.5-5.1); Sodium 133 mmol/L (136-145)
--- NOTE | 2022-08-22 18:25 | PC.NURSE ---
Shift SUmmary: uneventful shift. Potassium replaced today. On amiodarane at 0.5 throughout the shift. Heart rate has been regular mostly in the mid 50's, occasionally in the mid 60's.
[2022-08-22] MEDS: atorvastatin 40 mg Tablet PO (20:19)
[2022-08-23] VITALS (54 sets, daily range): BP systolic 102–164; BP diastolic 55–108; PULSE 48–92; RESP 10–29; TEMP 37.2–37.6; O2SAT 78–100
[2022-08-23 05:38] LABS: Basophils % 0.6 %; Eosinophils % 0.3 %; Hematocrit 33.2 % (42.0-52.0); Hemoglobin 9.6 g/dL (11.7-16.6); Lymphocytes # 1.5 10^3/uL (0.8-4.8); Lymphocytes % 22.9 %; Mean Corpuscular HGB Conc 28.9 g/dL (30.0-36.0); Mean Corpuscular Hemoglobin 26.9 pg (28.0-34.0); Mean Platelet Volume 10.2 fL (7.4-10.4); Monocytes # 0.6 10^3/uL (0.2-0.9); Monocytes % 9.2 %; Neutrophils # 4.21 10^3/uL (1.8-7.7); Neutrophils % 66.5 %; Nucleated Red Blood Cells % 0 %; Platelet Count 216 10^3/cmm (130-400); Red Blood Count 3.57 10^6/uL (4.1-5.3); Red Cell Distribution Width 24.7 % (12.1-15.1); White Blood Count 6.3 10^3/uL (4.0-10.0)
[2022-08-23] MEDS: clopidogrel 75 mg Tablet PO (05:52)
[2022-08-23] MEDS: levothyroxine 75 mcg Tablet PO (05:52)
[2022-08-23] MEDS: acetaminophen 325 mg Tablet 650 MG PO (05:55)
[2022-08-23 05:58] LABS: Alanine Aminotransferase 12 U/L (0-41); Albumin Level 3.3 g/dL (3.5-5.2); Alkaline Phosphatase 101 U/L (40-130); Anion Gap 13.6 (5-19); Aspartate Amino Transferase 24 U/L (0-40); Blood Urea Nitrogen 9 mg/dL (8-23); Calcium 8.9 mg/dL (8.5-10.5); Carbon Dioxide 23 mmol/L (22-29); Chloride 102 mmol/L (98-107); Globulin 3.5 g/dL (1.3-4.6); Glucose 105 mg/dL (65-115); Osmolality Calculated 279 mOsm/kg (285-295); Potassium 3.6 mmol/L (3.5-5.1); Sodium 135 mmol/L (136-145); Total Bilirubin 0.9 mg/dL (0.15-1.2); Total Protein 6.8 g/dL (6.6-8.7)
--- NOTE | 2022-08-23 09:21 | PM.PN ---
Vitals/I&O/Wt Last Vital Signs Temp 98.9 F 08/23/22 04:00 Pulse 67 08/23/22 06:15 Resp 23 H 08/23/22 06:15 BP 164/89 08/23/22 06:15 Pulse Ox 90 08/23/22 06:15 O2 Del Method 08/22/22 23:09 FiO2 40 08/22/22 13:45 08/22/22 08/23/22 08/23/22 22:59 06:59 14:59 Intake Total 500 / 500 411.971 / 911.971 Output Total 300 / 775 300 / 1075 Balance 200 / -275 111.971 / -163.029 Weight last 48 hrs Weight 88.496 kg Weight 85.275 kg Weight 85.275 kg Weight 86.636 kg Data 08/23/22 04:34 08/23/22 04:34 Coding Level of Care Code Acute Code for Chg Fwd
[2022-08-23] MEDS: enoxaparin 100 mg/mL Syringe 90 MG SUBCUT (09:24)
[2022-08-23] MEDS: ferrous sulfate EC 325 mg Tablet PO (09:27)
[2022-08-23] MEDS: amiodarone 200 mg Tablet PO (09:27)
[2022-08-23] MEDS: potassium chloride ER 20 mEq Tablet PO (09:27)
[2022-08-23] MEDS: bumetanide 0.25 mg/mL SDV 4 mL 1 MG IVP (09:27)
[2022-08-23] MEDS: lidocaine 1% 5 ML in potassium chloride premix 100 ML 26.25 ML IV (09:30)
--- NOTE | 2022-08-23 10:11 | PC.NURSE ---
doctor lisa informed of sleep apnea will follow up
--- NOTE | 2022-08-23 10:38 | PM.PN ---
Subjective Subjective: The patient has not had a recurrence of V. tach since the hospital admission. The potassium level this morning was 3.5. He has no other specific complaints. Medications: Medication Review Details: Current Medications Acetaminophen (Acetaminophen 325 Mg Tablet) 650 mg PO Q6H PRN PRN Reason: Mild/Mod Pain Or Temp >/= 101 Last Admin: 08/23/22 05:55 Dose: 650 mg Hydrocodone Bitart/Acetaminophen (Hydrocodone-Acetaminophen 5-325 Mg Tablet) 1 tab PO Q6H PRN PRN Reason: pain Amiodarone HCl (Amiodarone 200 Mg Tablet) 200 mg PO BID [facility] Last Admin: 08/23/22 09:27 Dose: 200 mg Atorvastatin Calcium (Atorvastatin 40 Mg Tablet) 40 mg PO BEDTIME [facility] Last Admin: 08/22/22 20:19 Dose: 40 mg Bisacodyl (Bisacodyl 5 Mg Tablet) 10 mg PO DAILY PRN; Protocol PRN Reason: Constipation (see protocol) Bumetanide (Bumetanide 0.25 Mg/Ml Sdv 4 Ml) 1 mg IVP DAILY [facility] Last Admin: 08/23/22 09:27 Dose: 1 mg Clopidogrel Bisulfate (Clopidogrel 75 Mg Tablet) 75 mg PO QAM [facility] Last Admin: 08/23/22 05:52 Dose: 75 mg Enoxaparin Sodium (Enoxaparin 100 Mg/Ml Syringe) 90 mg 1 mg/kg (90 mg) SUBCUT Q12H [facility] Last Admin: 08/23/22 09:24 Dose: 90 mg Ferrous Sulfate (Ferrous Sulfate Ec 325 Mg Tablet) 325 mg PO DAILY [facility] Last Admin: 08/23/22 09:27 Dose: 325 mg Lidocaine HCl 5 ml/ Potassium (Chloride) 105 mls @ 26.25 mls/hr IV ONCE ONE Stop: 08/23/22 12:51 Last Admin: 08/23/22 09:30 Dose: 26.25 mls/hr Levothyroxine Sodium (Levothyroxine 75 Mcg Tablet) 75 mcg PO QAM [facility] Last Admin: 08/23/22 05:52 Dose: 75 mcg Metoprolol Tartrate (Metoprolol Tartrate 25 Mg Tablet) 12.5 mg PO BID [facility] Ondansetron HCl (Ondansetron 2 Mg/Ml Sdv 2 Ml) 4 mg IVP Q8H PRN PRN Reason: vomiting, or N/V if npo Last Admin: 08/22/22 12:58 Dose: 4 mg Polyethylene Glycol (Polyethylene Glycol 3350 Pkt 17 Gm) 17 gm PO DAILY PRN PRN Reason: constipation Potassium Chloride (Potassium Chloride Er 20 Meq Tablet) 20 meq PO BID [facility] Last Admin: 08/23/22 09:27 Dose: 20 meq Vitals/I&O/Wt Last Vital Signs Temp 98.9 F 08/23/22 04:00 Pulse 70 08/23/22 10:00 Resp 22 H 08/23/22 10:00 BP 117/65 08/23/22 10:00 Pulse Ox 93 08/23/22 10:00 O2 Del Method 08/23/22 08:00 O2 Flow Rate 2 08/23/22 08:00 FiO2 40 08/23/22 10:00 08/22/22 08/23/22 08/23/22 22:59 06:59 14:59 Intake Total 500 / 500 411.971 / 911.971 300 / 300 Output Total 300 / 775 300 / 1075 Balance 200 / -275 111.971 / -163.029 300 / 300 Weight last 48 hrs Weight 195 lb 1.6 oz Weight 188 lb Weight 188 lb Weight 191 lb Physical Exam Narrative: GENERAL: The patient is alert and oriented times three. Not in any acute distress. HEENT: No significant pallor, icterus or lymphadenopathy.Oral cavity: There are no mucous membrane lesions. NECK: Trachea appears to be central. No masses noted. No JVD or thyromegaly appreciated. RESPIRATORY: Chest is symmetrical. No intercostals muscle retraction or any accessory muscle activation. There is no chest wall tenderness. Breath sounds are heard bilaterally. No rales or rhonchi heard. No evidence of any consolidation. BREASTS: Deferred. HEART: The heart sounds are normal. No S3 or S4. Short systolic murmur in the left sternal border. No diastolic murmurs. No pericardial rub ABDOMEN: No vessel pulsations or distention. No tenderness. No organomegaly appreciated. Bowel sounds are normally heard. : Deferred. RECTAL: Deferred. LYMPHATIC: No lymphadenopathy noted in the neck. EXTREMITIES: No edema or cyanosis. No clubbing. MUSCULOSKELETAL: No acute joint deformities or swelling SKIN: There are no significant rashes or ecchymosis NEUROPSYCHIATRIC: The patient is alert and oriented x3. Appears to be in a good mood. No tremors or rigidity noted. Data 08/23/22 04:34 08/23/22 04:34 Other Labs: Laboratory Last Values WBC 6.3 10^3/uL (4.0-10.0) 08/23/22 04:34 RBC 3.57 10^6/uL (4.1-5.3) L 08/23/22 04:34 Hgb 9.6 g/dL (11.7-16.6) L 08/23/22 04:34 Hct 33.2 % (42.0-52.0) L 08/23/22 04:34 MCV 93.0 fl (80-94) 08/23/22 04:34 MCH 26.9 pg (28.0-34.0) L 08/23/22 04:34 MCHC 28.9 g/dL (30.0-36.0) L 08/23/22 04:34 RDW 24.7 % (12.1-15.1) H 08/23/22 04:34 Plt Count 216 10^3/cmm (130-400) 08/23/22 04:34 MPV 10.2 fL (7.4-10.4) 08/23/22 04:34 Neut % (Auto) 66.5 % 08/23/22 04:34 Lymph % (Auto) 22.9 % 08/23/22 04:34 [place] % (Auto) 9.2 % 08/23/22 04:34 Eos % (Auto) 0.3 % 08/23/22 04:34 Baso % (Auto) 0.6 % 08/23/22 04:34 Neut # (Auto) 4.21 10^3/uL (1.8-7.7) 08/23/22 04:34 Lymph # (Auto) 1.5 10^3/uL (0.8-4.8) 08/23/22 04:34 [place] # (Auto) 0.6 10^3/uL (0.2-0.9) 08/23/22 04:34 Eos # (Auto) 0.0 10^3/uL (0.0-0.8) 08/23/22 04:34 Baso # (Auto) 0.0 10^3/uL (0.0-0.1) 08/23/22 04:34 Nucleated RBC % (auto) 0 % 08/23/22 04:34 Nucleated RBCs # 0.0 /100WBC 08/23/22 04:34 Sodium 135 mmol/L (136-145) L 08/23/22 04:34 Potassium 3.6 mmol/L (3.5-5.1) 08/23/22 04:34 Chloride 102 mmol/L (98-107) 08/23/22 04:34 Carbon Dioxide 23 mmol/L (22-29) 08/23/22 04:34 Anion Gap 13.6 (5-19) 08/23/22 04:34 BUN 9 mg/dL (8-23) 08/23/22 04:34 Creatinine 1.0 mg/dL (0.7-1.2) 08/23/22 04:34 GFR Calculation Not Reportable 08/23/22 04:34 Glucose 105 mg/dL (65-115) 08/23/22 04:34 Calculated Osmolality 279 mOsm/kg (285-295) L 08/23/22 04:34 Calcium 8.9 mg/dL (8.5-10.5) 08/23/22 04:34 Magnesium 2.0 mg/dL (1.7-2.3) 08/23/22 04:34 Total Bilirubin 0.9 mg/dL (0.15-1.2) 08/23/22 04:34 AST 24 U/L (0-40) 08/23/22 04:34 ALT 12 U/L (0-41) 08/23/22 04:34 Alkaline Phosphatase 101 U/L (40-130) 08/23/22 04:34 Troponin T Baseline 41 ng/L (0-15) H 08/21/22 23:00 Troponin T 120 Minute 43.62 ng/L (0-15) H 08/22/22 00:55 Delta Troponin T 2.62 ABS# (0-10) 08/22/22 00:55 Troponin T Hi Sens 6Hr 46.09 ng/L (0-15) H 08/22/22 05:10 Troponin T Hi Sens 6Hr Delta 5.09 ng/L (0-12) 08/22/22 05:10 NT-Pro-B Natriuret Pep 2582 pg/mL (0-450) H 08/22/22 05:10 Total Protein 6.8 g/dL (6.6-8.7) 08/23/22 04:34 Albumin 3.3 g/dL (3.5-5.2) L 08/23/22 04:34 Globulin 3.5 g/dL (1.3-4.6) 08/23/22 04:34 TSH 2.10 uIU/mL (0.27-4.20) 08/22/22 05:10 A&P Assessment and plan (1) AICD discharge: No recurrence of ventricular tachycardia since hospital admission. Potassium level is back to normal. Continue on the p.o. amiodarone, 400 mg daily (2) Hypokalemia: The dose of the potassium may be increased to 20 mEq p.o. 3 times a day (3) Acute on chronic diastolic (congestive) heart failure: Currently seems compensated. May continue on the current dose of the diuretic-Bumex 2 mg p.o. twice daily (4) Anemia: The hemoglobin seems to be fairly stable at this time. (5) Ventricular tachycardia: No recurrence of ventricular tachycardia since the hospital admission. I may discontinue the IV amiodarone once the potassium is corrected. Continue on the p.o. dose of the amiodarone, 400 mg daily. (6) Hyperlipidemia: Continue on the current medications. We will go ahead and do a repeat echocardiogram to reevaluate the LV systolic function Plan Patient did not require any other intervention at this point. May continue on the other current medications as it is. Attestations Medical Necessity Statement*: Possible discharge home today. Appointment the [facility] in a week to be seen by the nurse practitioner. Repeat BMP at that time Appointment with me in the office in 1 month Coding Level of Care Code 25555 Diagnoses AICD discharge Z45.02 Hypokalemia E87.6 Acute on chronic diastolic (congestive) heart failure I50.33 Anemia D64.9 Ventricular tachycardia I47.2 Hyperlipidemia E78.5
--- NOTE | 2022-08-23 12:07 | PM.DCS ---
Discharge Providers Date of Admission: 08/22/22 00:17 Date of Discharge: August 23, 2022 Attending Provider at Admission: Giovani Moses MD Attending Provider at Discharge: Charley Covington MD Primary Care Provider: Gene Peralta Diagnoses at Discharge Discharge Diagnosis (1) AICD discharge: Status: Acute (2) Hypokalemia: Status: Acute (3) Acute on chronic diastolic (congestive) heart failure: Status: Acute (4) Anemia: Status: Acute (5) Ventricular tachycardia: Status: Acute (6) Hyperlipidemia: Status: Acute Reason for Visit Reason for Visit: possible heart attack, CP Brief History: Jesus Saucedo is a 86 year old male with past medical history of hypertension, hypothyroidism, coronary artery disease, ischemic cardiomyopathy, heart failure with preserved ejection fraction, history of VT AICD in place, chronic anemia, atrial fibrillation, on Eliquis, came in today with chief complaint of after feeling lightheaded and passed out, he felt that his defibrillator went off and shocked him,In Er he was shocked twice for VT, subsequent lab work revealed hypokalemia, patient was started on amnio drip, hypokalemia correction was started. Patient denies any chest pain, shortness of breath, nausea vomiting palpitation fever cough. X-ray chest chest has shown: Pulmonary vascular congestion, small bilateral pleural effusion. EKG: A-fib with slow ventricular response. Pertinent labs: WBC 7.6, H&H 10.6/37, PLT : 214 , sodium 140 potassium 2.3, BUN 11, SCR: 1.2 , Baseline troponin 41 Hospital Course Hospital Course Patient admitted for ventricular tachycardia AICD discharge. Potassium was found to be very low at admission in the 2 range. Electrolytes were corrected. He was transitioned to 20 mEq 3 times daily potassium. Previously he was on twice daily at home. He is to continue his Bumex 2 mg twice daily at home. Discussed all the above with cardiology and they agree. Amiodarone drip was continued at admission however has been discontinued. Patient to go home on his regular home medications including oral amiodarone at this point. It was also noted that he was hypoxic while sleeping. Overnight pulse ox was positive. Discussed with case management regarding setting up CPAP for the patient however insurance will require him to have a sleep study done. I will have sleep study referral in place at discharge. Patient will be discharged home in stable condition today. Echo was also done during hospital stay which did not show much of a change compared to prior echo. All questions answered. Patient will going be going home with his daughter today. Physical Exam Const: COMMON NORMALS: patient oriented x3 HENMT: COMMON NORMALS: normocephalic and atraumatic HEAD & SCALP: normocephalic and atraumatic Resp: COMMON NORMALS: clear to auscultation bilaterally EFFORT & INSPECTION: Yes symmetric chest movement AUSCULTATION: clear to auscultation bilaterally Cardio: COMMON NORMALS: regular rate, regular rhythm, S1 normal heart sound present, S2 normal heart sound present, No gallops present (Cardio), No murmurs present (Cardio), No rub (Cardio) and Peripheral pulses 2+ throughout RATE: regular rate RHYTHM: regular rhythm HEART SOUNDS: S1 normal heart sound present and S2 normal heart sound present PERIPHERAL PULSES: Peripheral pulses 2+ throughout GI: COMMON NORMALS: Normal to inspection, nondistended, normoactive bowel sounds present, Soft to palpation, non-tender, No hepatosplenomegaly present and no masses AUSCULTATION: Yes normoactive bowel sounds PALPATION: Yes Soft to palpation and Yes No hepatosplenomegaly present RECTAL EXAM: Yes deferred Extremity: NARRATIVE EXTREMITY EXAM: Bilateral 2+ lower extremity pitting edema Neuro: COMMON NORMALS: patient oriented x3 Discharge Data Studies Completed and Pending Completed Studies During Hospitalization Category Date Time Status XR chest 1V portable [id number] Stat Exams 08/21/22 22:49 Completed CV. echo complete* [id number] Routine Ultrasound 08/22/22 00:37 Completed Pending at discharge Category Date Time Status Complete Blood Count w/Auto AM LABS Lab 08/24/22 04:00 Ordered Complete Blood Count w/Auto AM LABS Lab 08/25/22 04:00 Ordered Comprehensive Metabolic Panel AM LABS Lab 08/24/22 04:00 Ordered Comprehensive Metabolic Panel AM LABS Lab 08/25/22 04:00 Ordered Magnesium AM LABS Lab 08/24/22 04:00 Ordered Magnesium AM LABS Lab 08/25/22 04:00 Ordered Radiology Impressions Chest X-Ray 08/21/22 22:49 IMPRESSION: 1. Fullness in the pulmonary vasculature suggesting volume overload in the lungs. Findings are stable. 2. Stable small bilateral pleural effusions. 3. Incidental/nonacute findings are listed in the report. Laboratory Results WBC 6.3 10^3/uL (4.0-10.0) 08/23/22 04:34 RBC 3.57 10^6/uL (4.1-5.3) L 08/23/22 04:34 Hgb 9.6 g/dL (11.7-16.6) L 08/23/22 04:34 Hct 33.2 % (42.0-52.0) L 08/23/22 04:34 MCV 93.0 fl (80-94) 08/23/22 04:34 MCH 26.9 pg (28.0-34.0) L 08/23/22 04:34 MCHC 28.9 g/dL (30.0-36.0) L 08/23/22 04:34 RDW 24.7 % (12.1-15.1) H 08/23/22 04:34 Plt Count 216 10^3/cmm (130-400) 08/23/22 04:34 MPV 10.2 fL (7.4-10.4) 08/23/22 04:34 Neut % (Auto) 66.5 % 08/23/22 04:34 Lymph % (Auto) 22.9 % 08/23/22 04:34 [place] % (Auto) 9.2 % 08/23/22 04:34 Eos % (Auto) 0.3 % 08/23/22 04:34 Baso % (Auto) 0.6 % 08/23/22 04:34 Neut # (Auto) 4.21 10^3/uL (1.8-7.7) 08/23/22 04:34 Lymph # (Auto) 1.5 10^3/uL (0.8-4.8) 08/23/22 04:34 [place] # (Auto) 0.6 10^3/uL (0.2-0.9) 08/23/22 04:34 Eos # (Auto) 0.0 10^3/uL (0.0-0.8) 08/23/22 04:34 Baso # (Auto) 0.0 10^3/uL (0.0-0.1) 08/23/22 04:34 Nucleated RBC % (auto) 0 % 08/23/22 04:34 Nucleated RBCs # 0.0 /100WBC 08/23/22 04:34 Sodium 135 mmol/L (136-145) L 08/23/22 04:34 Potassium 3.6 mmol/L (3.5-5.1) 08/23/22 04:34 Chloride 102 mmol/L (98-107) 08/23/22 04:34 Carbon Dioxide 23 mmol/L (22-29) 08/23/22 04:34 Anion Gap 13.6 (5-19) 08/23/22 04:34 BUN 9 mg/dL (8-23) 08/23/22 04:34 Creatinine 1.0 mg/dL (0.7-1.2) 08/23/22 04:34 GFR Calculation Not Reportable 08/23/22 04:34 Glucose 105 mg/dL (65-115) 08/23/22 04:34 Calculated Osmolality 279 mOsm/kg (285-295) L 08/23/22 04:34 Calcium 8.9 mg/dL (8.5-10.5) 08/23/22 04:34 Magnesium 2.0 mg/dL (1.7-2.3) 08/23/22 04:34 Total Bilirubin 0.9 mg/dL (0.15-1.2) 08/23/22 04:34 AST 24 U/L (0-40) 08/23/22 04:34 ALT 12 U/L (0-41) 08/23/22 04:34 Alkaline Phosphatase 101 U/L (40-130) 08/23/22 04:34 Troponin T Baseline 41 ng/L (0-15) H 08/21/22 23:00 Troponin T 120 Minute 43.62 ng/L (0-15) H 08/22/22 00:55 Delta Troponin T 2.62 ABS# (0-10) 08/22/22 00:55 Troponin T Hi Sens 6Hr 46.09 ng/L (0-15) H 08/22/22 05:10 Troponin T Hi Sens 6Hr Delta 5.09 ng/L (0-12) 08/22/22 05:10 NT-Pro-B Natriuret Pep 2582 pg/mL (0-450) H 08/22/22 05:10 Total Protein 6.8 g/dL (6.6-8.7) 08/23/22 04:34 Albumin 3.3 g/dL (3.5-5.2) L 08/23/22 04:34 Globulin 3.5 g/dL (1.3-4.6) 08/23/22 04:34 TSH 2.10 uIU/mL (0.27-4.20) 08/22/22 05:10 Vitals Last Vital Signs Temp 98.9 F 08/23/22 04:00 Pulse 70 08/23/22 10:00 Resp 22 H 08/23/22 10:00 BP 117/65 08/23/22 10:00 Pulse Ox 93 08/23/22 10:00 O2 Del Method 08/23/22 08:00 O2 Flow Rate 2 08/23/22 08:00 FiO2 40 08/23/22 10:00 Discharge Plan Discharge Patient Disposition: Home Condition: Stable Prescriptions: Continued acetaminophen [Tylenol Extra Strength] 500 mg tablet 500 mg PO Q6H PRN (Reason: Pain) metoprolol tartrate 25 mg tablet 12.5 mg PO BID Qty: 60 3RF lidocaine [Salonpas (lidocaine)] 4 % adhesive patch,medicated 1 patch topical DAILY PRN (Reason: Pain) (DME) Thumb Spica See Rx Instructions .Route .MEDSUPPLY Qty: 1 0RF Rx Instructions: As directed. clopidogrel 75 mg tablet 75 mg PO QAM Qty: 90 3RF Hold Instructions: Resume on 06/06/22. Eliquis 5 mg tablet 5 mg PO BID@, Qty: 180 3RF Hold Instructions: Resume on 08/08/22. nitroglycerin 0.4 mg tablet, sublingual 0.4 mg sublingual Q5MIN PRN (Reason: Chest Pain) rosuvastatin 40 mg tablet 40 mg PO BEDTIME Centrum Silver 400-250 mcg Tablet,Chewable 1 tab PO DAILY levothyroxine 75 mcg tablet 75 mcg PO QAM hydrocodone-acetaminophen 5-325 mg tablet 1 tab PO Q6H PRN (Reason: pain) Qty: 14 0RF bumetanide 1 mg tablet 2 mg PO BID albuterol sulfate 90 mcg/actuation HFA aerosol inhaler 2 puff INHALATION Q6H PRN (Reason: Shortness Of Breath) amiodarone 200 mg tablet 200 mg PO BID Qty: 180 3RF ferrous sulfate [Feosol] 325 mg (65 mg iron) tablet 325 mg PO DAILY Qty: 90 1RF polyethylene glycol 3350 [Miralax] 17 gram/dose powder 4 g PO DAILY PRN (Reason: constipation) Qty: 119 0RF Changed potassium chloride 20 mEq tablet extended release 20 meq PO TID Qty: 60 2RF Discharge Orders: Discharge Order (Routine); Ordered 08/23/22 Ordered By: Charley Covington Other Ambulatory Orders: Sleep Study W Sleep Stage (Routine) Timeframe: 1 Day Facility: [facility] - Location: [facility] Ordered By: Charley Covington Referrals: Mike Gonzalez MD [Physician] - 1 month (Please call Dr. Gonzalez's Office on Wednesday at [phone] to schedule a follow up appointment for 1 month. Thank you.) Gene Peralta [Primary Care Provider] - 4-7 days (Please call Dr. Peralta's Office on Wednesday at [phone] to schedule a follow up appointment for 4-7 days. Thank you.) Nancy Jorgensen FNP [Nurse Practitioner] - 1 week (Please call Nancy Jorgensen's Office on Wednesday at [phone] to schedule a follow up appointment for 1 week. Thank you.) Discharge Diet: Cardiac Discharge Activity: Resume usual activity Patient Instructions: Potassium Chloride (By mouth) (K-Dur, K-Sigrid, K-Tab, Ramiro Mur), Opioid Safety Discharge Attestations Time Spent in Discharge Care*: greater than 30 min Quality Metrics Clinical Quality Measures [ No reported AMI, CVA or VTE this stay] Coding Level of Care Code 99714 Diagnoses AICD discharge Z45.02 Hypokalemia E87.6 Acute on chronic diastolic (congestive) heart failure I50.33 Anemia D64.9 Ventricular tachycardia I47.2 Hyperlipidemia E78.5
--- NOTE | 2022-08-23 14:41 | PC.NURSE ---
iv removed home o2 study done not qualify at this time did caution to continue to sleep study op pt ordered as sats decrease at night. will follow through also make apts wednesday as wednesday is holiday
== END 2022-08-23 14:30 | disposition home or self-care (01) | DRG 308 ==
LOC: ER 08-22 00:23 → ICU 08-22 00:26
PROVIDERS: Internal Medicine Cardiovascular Disease; Admitting Provider Internal Medicine; Emergency Provider Emergency Medicine; PCP Family Medicine; Visit Provider Internal Medicine
DX: I47.20 Ventricular tachycardia, unspecified (principal); I50.33 Acute on chronic diastolic (congestive) heart failure; I13.0 Hypertensive heart and chronic kidney disease with heart failure and stage 1 through stage 4 chronic kidney disease, or unspecified chronic kidney disease; N18.9 Chronic kidney disease, unspecified; E03.9 Hypothyroidism, unspecified; I25.10 Atherosclerotic heart disease of native coronary artery without angina pectoris; I25.5 Ischemic cardiomyopathy; I48.91 Unspecified atrial fibrillation; D63.1 Anemia in chronic kidney disease; E87.6 Hypokalemia; Z79.02 Long term (current) use of antithrombotics/antiplatelets; Z79.01 Long term (current) use of anticoagulants; Z79.891 Long term (current) use of opiate analgesic; Z79.51 Long term (current) use of inhaled steroids; I25.2 Old myocardial infarction; Z95.810 Presence of automatic (implantable) cardiac defibrillator
CPT/HCPCS: 36415; 71045; 80048; 80053; 83735; 83880; 84443; 84484; 85025; 93005; 93306; 94760; 96372; 96374; 96375; 99285; J0282; J1650; J2405; J3480; J3490; J7050; J7060

== ENCOUNTER → 2022-08-25 15:54 | Outpatient (BNVA) | payer MEDICARE, OTHER, SELFPAY | PROVIDERS: PCP Family Medicine; Visit Provider Internal Medicine | DX: Z45.02 Encounter for adjustment and management of automatic implantable cardiac defibrillator (principal) | CPT/HCPCS: 93296 ==

== ENCOUNTER → 2022-08-26 10:23 | Outpatient (BNVA) | payer MEDICARE, OTHER, SELFPAY | PROVIDERS: PCP Family Medicine; Visit Provider Orthopaedic Surgery | DX: I25.10 Atherosclerotic heart disease of native coronary artery without angina pectoris (principal); Z95.810 Presence of automatic (implantable) cardiac defibrillator; I48.91 Unspecified atrial fibrillation; I42.9 Cardiomyopathy, unspecified; I10 Essential (primary) hypertension; E78.5 Hyperlipidemia, unspecified; S42.292D Other displaced fracture of upper end of left humerus, subsequent encounter for fracture with routine healing; X58.XXXD Exposure to other specified factors, subsequent encounter | CPT/HCPCS: 73030; 80048; 83880; 99213; 99214 ==

== ENCOUNTER 2022-08-31 01:49 | Inpatient (IN) | payer MEDICARE, OTHER, SELFPAY ==
[2022-08-31] VITALS (171 sets, daily range): BP systolic 81–157; BP diastolic 42–94; PULSE 49–175; RESP 8–26; TEMP 36.4–36.7; O2SAT 90–100; BMI 27.8; BMI 25.5
--- NOTE | 2022-08-31 01:54 | W.ED.CHESTPA ---
HPI - Chest Pain General: Chief Complaint: Chest Pain Stated Complaint: chest pain, shocked by defib Time Seen by Provider: 08/31/22 01:52 Source: patient History of Present Illness: 86-year-old gentleman with a history of ventricular tachycardia. He had a recent admission after his AICD went off at home, and twice in the emergency department. His potassium at that point was 2.3. He was released on 08/24. This morning, he believes his defibrillator went off again twice. This awoke him from sleep. He was having chest discomfort at home, not so much now. MD complaint: chest pain and other Pertinent past history: coronary artery disease and other Timing of current episode: now resolved Prior episodes: Yes Onset: during rest Pain location: substernal Quality: other Relieving factors: other Associated symptoms: Reports dyspnea and palpitations; Deny abdominal pain, fever(s), nausea or vomiting Review of Systems Const: Denies: fever(s) Eyes: Denies: change in vision ENMT: Denies: throat pain Card: Reports: chest pain, palpitations, irregular heart rhythm and swelling of feet/ankles (improved from prior) Resp: Reports: dyspnea; Denies: productive cough or non-productive cough GI: Denies: abdominal pain, nausea or vomiting Neuro: Denies: headache(s) PFSH ED PFSH: Medical History (Updated 08/31/22 @ 04:45 by Jeff Eid DO) Acute diastolic (congestive) heart failure Acute ND Acute non-ST elevation myocardial infarction (NSTEMI) Acute on chronic systolic heart failure Anemia Anemia Atherosclerosis of coronary artery of [place] heart without angina pectoris Atrial fibrillation Rate control on anticoagulation Cardiomyopathy History of ischemic cardiomyopathy, do not need revascularization, continue optimal medical regimen Chronic kidney disease Coronary artery disease Coronary artery disease Hyperlipidemia Hypertension Well-controlled Sustained VT (ventricular tachycardia) Continue current regimen including beta-ashley, amiodarone. Appear to be stable not in VT anymore. Can be discharged home. Tubular adenoma of colon Ventricular tachycardia Ventricular tachycardia Wide-complex tachycardia Surgical History History of back surgery History of cardiac defibrillator placement Stented coronary artery Family History Mother No problems noted. Father No problems noted. Other CAD (coronary artery disease) Social History Smoking and tobacco status: never smoked Alcohol intake: never Adopted: No Caregiver/support person: Yes Housing: [employer] Marital status: / Current occupational status: retired Physical Exam Const: GENERAL APPEARANCE: ill appearing (mildly) and frail appearing HENMT: COMMON NORMALS: normocephalic, atraumatic and Normal external nose present HEAD & SCALP: normocephalic and atraumatic FACE & SINUS: normal facial exam and face symmetric NOSE: Normal external nose present Eye: COMMON NORMALS: Equal, round and reactive pupils present and EOMs intact bilaterally PUPIL: Yes Equal, round and reactive pupils present Neck/C-Spine: GENERAL: Yes trachea midline Chest: CHEST: Yes Symmetrical chest wall rise Resp: COMMON NORMALS: normal respiratory effort, No retractions, No use of accessory muscles and clear to auscultation bilaterally AUSCULTATION: clear to auscultation bilaterally Cardio: COMMON NORMALS: regular rate and regular rhythm RATE: regular rate RHYTHM: regular rhythm GI: COMMON NORMALS: Normal to inspection, nondistended, normoactive bowel sounds present Extremity: COMMON NORMALS: no pedal edema Neuro: SADE COMA SCALE: document GCS findings [place] coma scale eye opening: Spontaneous Sade coma scale verbal response: Orientated [place] coma scale motor response: Obey commands Sade coma scale total score: 15 SENSORY EXAM: Yes extremities (intact) Psych: COMMON NORMALS: speech normal SPEECH: Yes normal speech Skin: COMMON NORMALS: no rashes or lesions noted GENERAL SKIN EXAM: no rashes or lesions noted Course Vital Signs: Vital signs: Vital Signs Temperature 97.5 F L 08/31/22 01:55 Pulse Rate 53 L 08/31/22 04:00 Respiratory Rate 17 08/31/22 04:00 Blood Pressure 142/64 08/31/22 04:00 Pulse Oximetry 98 08/31/22 04:00 Oxygen Delivery Me thod 08/31/22 04:00 Oxygen Flow Rate 2 08/31/22 04:00 MDM - Chest Pain Medical Decision Making 86-year-old male whose defibrillator went off at least twice at home. On arrival here, his chest pain had improved. However, during his stay in the emergency department, his defibrillator discharged at least 3 more times. This was for quite refractory ventricular tachycardia with rates up to 200. The patient remained awake and alert for most of these discharges, but was clearly not responsive to one of them. After the first discharge here, a bolus of 150 mg of amiodarone was ordered. The patient had 2 more discharges following that bolus. Another bolus of 150 mg ordered following that. The patient experienced no more discharges after 300 mg of amiodarone was infused. He is placed on a maintenance drip following this. As he has a history of hypokalemia, IV potassium was ordered prior to even receiving the potassium result. It resulted at 2.8. He also received 40 mEq of oral liquid potassium. This will be rechecked. He will go to the ICU. Pacer/AICD was interrogated in the ER, and appears to be functioning appropriately. On departure from the ER to the ICU, the patient was paced at 50, and essentially normotensive. He is awake. He was given some Versed during the episodes of multiple discharges for palliative reasons, so he is mildly sleepy. Cardiology was consulted from the emergency department due to refractory ventricular tachycardia. They agreed with treatment. Lab Data 08/31/22 01:57 Radiology Impressions Chest X-Ray 08/31/22 02:11 IMPRESSION: 1. No focal acute pulmonary disease. 2. No change from comparison. Chronic interstitial lung changes apparent. Laboratory Results PT 14.60 SECONDS (12.1-14.9) 08/31/22 01:57 INR 1.10 (0.8-1.2) 08/31/22 01:57 APTT 25.6 SECONDS (23.9-36.7) 08/31/22 01:57 Sodium 136 mmol/L (136-145) 08/31/22 01:57 Potassium 2.8 mmol/L (3.5-5.1) L* 08/31/22 01:57 Chloride 92 mmol/L (98-107) L 08/31/22 01:57 Carbon Dioxide 26 mmol/L (22-29) 08/31/22 01:57 Anion Gap 20.8 (5-19) H 08/31/22 01:57 BUN 26 mg/dL (8-23) H 08/31/22 01:57 Creatinine 1.9 mg/dL (0.7-1.2) H 08/31/22 01:57 GFR Calculation Not Reportable 08/31/22 01:57 Glucose 124 mg/dL (65-115) H 08/31/22 01:57 Calculated Osmolality 288 mOsm/kg (285-295) 08/31/22 01:57 Calcium 9.4 mg/dL (8.5-10.5) 08/31/22 01:57 Magnesium 2.1 mg/dL (1.7-2.3) 08/31/22 01:57 Total Bilirubin 0.8 mg/dL (0.15-1.2) 08/31/22 01:57 AST 31 U/L (0-40) 08/31/22 01:57 ALT 17 U/L (0-41) 08/31/22 01:57 Alkaline Phosphatase 118 U/L (40-130) 08/31/22 01:57 Troponin T Baseline 53 ng/L (0-15) H 08/31/22 01:57 NT-Pro-B Natriuret Pep 1023 pg/mL (0-450) H 08/31/22 01:57 Total Protein 7.7 g/dL (6.6-8.7) 08/31/22 01:57 Albumin 3.7 g/dL (3.5-5.2) 08/31/22 01:57 Globulin 4.0 g/dL (1.3-4.6) 08/31/22 01:57 Critical Care Time Critical Care Time: Critical Care Time: Yes Total Critical Care Time: 45 Attestation: This case had a high probability of a clinically significant, sudden, or life threatening deterioration of this patient's condition which required my full and direct attention, intervention and personal management. Time is independent of any procedures performed. Discharge Plan Discharge Patient Disposition: Admitted As Inpatient Admit Provider: Giovani Moses Clinical Impression: Ventricular tachycardia, Hypokalemia Condition: Serious Coding Level of Care Code ED Access Lead for Lawson Zelaya
--- NOTE | 2022-08-31 01:57 | ECG_ITS ---
[facility] Test Date: 2022-08-31 Pat Name: Jesus Saucedo Department: Room: [facility] Gender: Male Budget Technician: : 1935 Requested By: Jeff Easton Order Number: [id number] Anders MD: Ayaan Sen M.D. Measurements Intervals [place] Rate: 61 P: -70 [place]: 218 QRS: -9 QRSD: 146 T: -85 QT: 391 QTc: 396 Interpretive Statements ECTOPIC ATRIAL RHYTHM WITH FIRST DEGREE AV BLOCK WITH OCCASIONAL VENTRICULAR PREMATURE COMPLEXES INTRAVENTRICULAR CONDUCTION DELAY [130+ ms QRS DURATION] Compared to ECG 08/22/2022 05:40:16 Ectopic atrial rhythm now present First degree AV block now present Sinus rhythm no longer present T-wave abnormality no longer present Electronically Signed On 08-31-2022 17:30:49 COIL FORMER by Ayaan Sen M.D. [email or web address] [id number]
--- NOTE | 2022-08-31 02:11 | XRR_ITS ---
PROCEDURE INFORMATION: Exam: XR Chest Exam date and time: 08/31/2022 2:43 AM Age: 86 years old Clinical indication: Pain; Chest pressure; Prior surgery; Surgery date: 6+ months; Surgery type: Pacemaker/defib; Additional info: Cp TECHNIQUE: Imaging protocol: Radiologic exam of the chest. Views: 1 view. COMPARISON: CR (CHEST, ) 08/21/2022 10:54 PM FINDINGS: Tubes, catheters and devices: Left chest ICD. Lungs: Prominent vascularity throughout the lungs with coarse increased interstitial lung markings. No consolidation. Pleural spaces: Unremarkable. No pleural effusion. No pneumothorax. Heart/Mediastinum: Cardiomegaly. Bones/joints: Thoracolumbar spine posterior fusion. XR/XR chest 1V portable [id number] IMPRESSION: 1. No focal acute pulmonary disease. 2. No change from comparison. Chronic interstitial lung changes apparent.
--- NOTE | 2022-08-31 02:20 | PC.NURSE ---
Vtach noted on monitor. RN x 3 and MD to bedside to check on pt. Pt is awake and states he feels hot. Pt rate up to 210, defib shocked pt. Pt placed on defib pads, meds given, and pt moved to trauma room 11 for further care. At this time, this RN took over care of pt.
[2022-08-31] MEDS: amiodarone 50 mg/mL SDV 3 mL 150 MG IVP ×2 (02:25→02:36)
[2022-08-31 02:30] LABS: Partial Thromboplastin Time 25.6 SECONDS (23.9-36.7)
--- NOTE | 2022-08-31 02:30 | PC.NURSE ---
2nd Shock delivered via pts defib. Pt remained awake, c/o feeling hot.
[2022-08-31] MEDS: midazolam 1 mg/mL INJ 2 mL 2 MG IVP (02:34)
[2022-08-31 02:40] LABS: Troponin(5th) Baseline 53 ng/L (0-15)
[2022-08-31] MEDS: potassium chloride premix 100 ML 50 MEQ IV (02:45)
[2022-08-31 02:49] LABS: Alanine Aminotransferase 17 U/L (0-41); Albumin Level 3.7 g/dL (3.5-5.2); Alkaline Phosphatase 118 U/L (40-130); Blood Urea Nitrogen 26 mg/dL (8-23); Calcium 9.4 mg/dL (8.5-10.5); Carbon Dioxide 26 mmol/L (22-29); Chloride 92 mmol/L (98-107); Glucose 124 mg/dL (65-115); Magnesium 2.1 mg/dL (1.7-2.3); NT Pro B Type Natriuretic Pept 1023 pg/mL (0-450); Osmolality Calculated 288 mOsm/kg (285-295); Sodium 136 mmol/L (136-145); Total Bilirubin 0.8 mg/dL (0.15-1.2); Total Protein 7.7 g/dL (6.6-8.7)
[2022-08-31 02:53] LABS: Anion Gap 20.8 (5-19); Aspartate Amino Transferase 31 U/L (0-40)
[2022-08-31 02:55] LABS: Potassium 2.8 mmol/L (3.5-5.1)
--- NOTE | 2022-08-31 03:17 | P.HP_ITS ---
Providers/Chief Complaint Primary Care Provider: Gene Peralta Chief Complaint: chest pain, shocked by defib History of Present Illness Jesus Saucedo is a 86 year old male with past medical history of hypertension, hypothyroidism, coronary artery disease, ischemic cardiomyopathy, heart failure with preserved ejection fraction, history of VT AICD in place, chronic anemia, atrial fibrillation, on Eliquis, came in today when his AICD went off twice today at home,he was sleeping at that time, and when he woke up he was having some chest discomfort. When he arrived in the ER, AICD Went off again around 4 times, he received total of 300 bolus of amidarone as well as was started on amidarone drip.He has recent hospitalization for similar complain.2 Decho done during that admission results have been reviewed.Patient was also found to be hypokalemic on aarival for which pottasium supplementation was started.he was also found to be in KARL on this admission possibly prerenal KARL, admission SCR was ; 1.9 . Xray chest showed:chronic changes, no pulmonary vascular congestion, no effusion, no infiltrates Pertinent labs: WBC : 6, H&H 10./33, PLT : 238 , sodium 134 potassium 2.8, BUN 26, SCR: 1.9 , Baseline troponin 53-63-63 , pro bnp: 1023 Review of Systems General: Reports: 10 or more systems reviewed and unremarkable except in HPI and below Const: Denies: fever(s), chills, body aches, change in appetite or diaphoresis Card: Denies: palpitations, edema, swelling of feet/ankles, dyspnea on exertion, orthopnea or leg pain with exertion Resp: Denies: dyspnea, productive cough, wheezing or pain on inspiration GI: Denies: abdominal pain, nausea, vomiting, diarrhea or constipation : Denies: flank pain or difficulty urinating Musc: Denies: back pain, extremity pain or extremity swelling Neuro: Denies: headache(s), difficulty walking or confusion Medications/Allergies Home Medications Medication Instructions Recorded Confirmed Last Taken Type nitroglycerin 0.4 mg sublingual 0.4 mg sublingual Q5MIN PRN Chest 04/12/21 08/31/22 Unknown History tablet Pain rosuvastatin 40 mg tablet 40 mg PO BEDTIME 04/12/21 08/31/22 07/09/22 History multivit with min-folic 1 tab PO DAILY 04/25/21 08/31/22 07/10/22 History acid-lutein 400 mcg-250 mcg chewable tablet (Centrum Silver) acetaminophen 500 mg tablet 500 mg PO Q6H PRN Pain 05/21/21 08/31/22 06/01/22 History (Tylenol Extra Strength) Thumb Spica #1 ea 02/26/22 08/31/22 Unknown Rx levothyroxine 75 mcg tablet 75 mcg PO QAM 03/02/22 08/31/22 07/10/22 History albuterol sulfate 90 mcg/actuation 2 puff inhalation Q6H PRN 03/04/22 08/31/22 06/01/22 History aerosol inhaler Shortness Of Breath metoprolol tartrate 25 mg tablet 12.5 mg PO BID #60 tabs 03/25/22 08/31/22 07/10/22 Rx lidocaine 4 % topical patch 1 patch topical DAILY PRN Pain 04/13/22 08/31/22 Unknown History (Salonpas (lidocaine)) clopidogrel 75 mg tablet 75 mg PO QAM #90 tabs 05/11/22 08/31/22 07/10/22 Rx hydrocodone 5 mg-acetaminophen 325 1 tab PO Q6H PRN pain #14 tabs 07/06/22 08/31/22 Unknown Rx mg tablet apixaban 5 mg tablet (Eliquis) 5 mg PO BID@07,19 #180 tabs 07/08/22 08/31/22 07/10/22 Rx amiodarone 200 mg tablet 200 mg PO BID #180 tabs 07/11/22 08/31/22 07/10/22 Rx ferrous sulfate 325 mg (65 mg 325 mg PO DAILY #90 tabs 07/11/22 08/31/22 Unknown Rx iron) tablet (Feosol) polyethylene glycol 3350 17 4 g PO DAILY PRN constipation #119 07/11/22 08/31/22 Unknown Rx gram/dose oral powder (Miralax) grams bumetanide 1 mg tablet 2 mg PO BID 08/22/22 08/31/22 Unknown History potassium chloride 20 mEq 20 meq PO TID #60 tabs 08/23/22 08/31/22 Unknown Rx tablet,extended release Beets 1 tab PO DAILY 08/26/22 08/31/22 Unknown History metolazone 2.5 mg tablet 2.5 mg PO DAILY #10 tabs 08/27/22 08/31/22 Unknown Rx Allergies Allergy/AdvReac Type Severity Reaction Status Date / Time JACKIE Inhibitors Allergy Unknown Unknown Verified 08/26/22 15:06 aspirin Allergy ALGY-Hives Verified 08/26/22 15:06 Latex, Natural Rubber Allergy ALGY-Rash Verified 08/26/22 15:06 PFSH Acute PFSH: Medical History Acute diastolic (congestive) heart failure Acute TN Acute non-ST elevation myocardial infarction (NSTEMI) Acute on chronic systolic heart failure Anemia Anemia Atherosclerosis of coronary artery of [place] heart without angina pectoris Atrial fibrillation Rate control on anticoagulation Cardiomyopathy History of ischemic cardiomyopathy, do not need revascularization, continue optimal medical regimen Chronic kidney disease Coronary artery disease Coronary artery disease Hyperlipidemia Hypertension Well-controlled Sustained VT (ventricular tachycardia) Continue current regimen including beta-ashley, amiodarone. Appear to be stable not in VT anymore. Can be discharged home. Tubular adenoma of colon Ventricular tachycardia Ventricular tachycardia Wide-complex tachycardia Surgical History History of back surgery History of cardiac defibrillator placement Stented coronary artery Family History Mother No problems noted. Father No problems noted. Other CAD (coronary artery disease) Social History Smoking and tobacco status: never smoked Alcohol intake: never Adopted: No Caregiver/support person: Yes Housing: Longterm Marital status: / Current occupational status: retired Vitals/I&O/Wt Last Vital Signs Temp 97.5 F L 08/31/22 01:55 Pulse 88 08/31/22 02:25 Resp 16 08/31/22 02:25 BP 157/79 08/31/22 02:25 Pulse Ox 96 08/31/22 02:47 O2 Del Method 08/31/22 02:47 O2 Flow Rate 2 08/31/22 02:47 Weight last 48 hrs Weight 87.997 kg Physical Exam Const: COMMON NORMALS: patient oriented x3 HENMT: COMMON NORMALS: normocephalic and atraumatic HEAD & SCALP: normocephalic and atraumatic Resp: COMMON NORMALS: normal respiratory effort, No retractions, No use of accessory muscles and clear to auscultation bilaterally EFFORT & INSPECTION: Yes symmetric chest movement AUSCULTATION: clear to auscultation bilaterally Cardio: COMMON NORMALS: S1 normal heart sound present, S2 normal heart sound present, No gallops present (Cardio), No murmurs present (Cardio), No rub (Cardio) and Peripheral pulses 2+ throughout RATE: regular rate RHYTHM: regular rhythm HEART SOUNDS: S1 normal heart sound present and S2 normal heart sound present PERIPHERAL PULSES: Peripheral pulses 2+ throughout GI: COMMON NORMALS: Normal to inspection, nondistended, normoactive bowel sounds present, Soft to palpation, non-tender, No hepatosplenomegaly present and no masses AUSCULTATION: Yes normoactive bowel sounds PALPATION: Yes Soft to palpation and Yes No hepatosplenomegaly present RECTAL EXAM: Yes deferred Extremity: COMMON NORMALS: no clubbing, cyanosis or edema and no pedal edema Neuro: COMMON NORMALS: patient oriented x3 Data 08/31/22 01:57 A&P Assessment and plan (1) Ventricular tachycardia: (2) AICD discharge: (3) Status post implantation of automatic cardioverter/defibrillator (AICD): (4) Atrial fibrillation: (5) Hypertension: (6) Acute kidney injury superimposed on CKD: (7) Hypokalemia: Plan 86 year old male with past medical history of hypertension, hypothyroidism, coronary artery disease, ischemic cardiomyopathy, heart failure with preserved ejection fraction, history of VT AICD in place, chronic anemia, atrial fibrillation, on Eliquis, came in today when his AICD went off twice today at home,he was sleeping at that time, and when he woke up he was having some chest discomfort. Assessment: Ventricular tachycardia: Status post AICD discharge Most recent 2D echo : has shown new drop in EF, as compared to 2D echo done in 03/26: Diffuse hypokinesia of the left ventricule with an ejection ?fraction of 40%.?Mildly dilated left-ventricule.?Grade III/IV diastolic dysfunction (restrictive filling?pattern), severely elevated filling pressures.?Moderate biatrial enlargement?Normal RV size ejection fraction.?Thickened mitral valve. Mild mitral annular calcification.?Possibly severe mitral valve regurgitation.?Thickened aortic valve. Trace to mild aortic valve?regurgitation.?Moderate tricuspid valve regurgitation.??Severe pulmonary hypertension with an estimated pulmonary artery?peak systolic pressure of 111 mmHg.?There is no pericardial effusion. Monitor serum potassium: Correct for goal of serum potassium greater than 4 Monitor serum magnesium correct for goal greater than 2 Continue amnio drip, if needed lidocaine drip, or po mexlitene Continue p.o. amiodarone Continue p.o. metoprolol Cardiology on board Hypokalemia: Monitor and replace serum potassium KARL ON CKD : Baseline scr is around 1.3 Admission scr : 1.9 continue gentle I.V Hydration monitor BMP Avoid nephrotoxics History of atrial fibrillation: Currently heart rate is well controlled Continue p.o. amiodarone metoprolol currently on hold as h/r is on lower side. He is on Eliquis at home, for now we will keep him on therapeutic Lovenox Mildly reduced HFrEF: Currently compnesated Monitor intake output charting Monitor electrolytes Monitor weight Continue telemetry monitoring History of coronary artery disease: History of hypothyroidism: Am TSH : Continue levothyroxine CODE STATUS: Full code DVT prophylaxis not needed: On therapeutic anticoagulation with Lovenox Attestations Medical Necessity Statement*: Patient needs to be in hospital for the management of recurrent V/T.Anticipated LOS Greater then 2 midnights. Critical Care Time: The high probability of a clinically significant, sudden or life threatening deterioration of the patient's [] system(s) required my full and direct attention, intervention and personal management. The critical care time is as shown. This time is in addition to time spent performing any reported procedures but includes the following: [x] Data and vital sign review and interpretation [x] Patient assessment, examination and intervention [x] Documentation [x] Medication orders and management Critical Care Time (min): 40 Coding Level of Care Code Critical Care >/= 30 minutes Diagnoses Ventricular tachycardia I47.20 AICD discharge Z45.02 Status post implantation of automatic cardioverter/defibrillator (AICD) Z95.810 Atrial fibrillation I48.91 Hypertension I10 Acute kidney injury superimposed on CKD N17.9; N18.9 Hypokalemia E87.6
[2022-08-31] MEDS: potassium chloride oral liq 20 mEq/15 mL UDC 40 MEQ PO (03:41)
--- NOTE | 2022-08-31 04:11 | ECG_ITS ---
[facility] Test Date: 2022-08-31 Pat Name: Jesus Saucedo Department: Room: [facility] Gender: Male Internal Communications Specialist: : 1935 Requested By: Jeff Easton Order Number: [id number] Anders MD: Ayaan Sen M.D. Measurements Intervals [place] Rate: 49 P: 0 SD: 0 QRS: -68 QRSD: 206 T: 113 QT: 554 QTc: 505 Interpretive Statements ELECTRONIC VENTRICULAR PACEMAKER Compared to ECG 08/31/2022 01:57:19 Prolonged QT interval now present Ectopic atrial rhythm no longer present First degree AV block no longer present Intraventricular conduction delay no longer present Electronically Signed On 08-31-2022 17:33:28 FOOD MIXER ASSEMBLER by Ayaan Sen M.D. [email or web address] [facility] natchezSurreal [facility].[employer]/[id number]
[2022-08-31] MEDS: sodium chloride 0.9% 1,000 ML 75 ML IV ×2 (04:55→21:49)
[2022-08-31] MEDS: levothyroxine 75 mcg Tablet PO (06:18)
[2022-08-31] MEDS: clopidogrel 75 mg Tablet PO (06:18)
[2022-08-31 07:13] LABS: Anion Gap 15.9 (5-19); Blood Urea Nitrogen 25 mg/dL (8-23); Carbon Dioxide 26 mmol/L (22-29); Chloride 97 mmol/L (98-107); Glucose 117 mg/dL (65-115); Osmolality Calculated 287 mOsm/kg (285-295); Sodium 136 mmol/L (136-145)
[2022-08-31 07:16] LABS: Troponin 5 2HR 63.02 ng/L (0-15)
[2022-08-31 07:24] LABS: Troponin 5 2HR Delta 10.02 ABS# (0-10)
[2022-08-31 07:25] LABS: Potassium 2.9 mmol/L (3.5-5.1)
--- NOTE | 2022-08-31 08:11 | ECG_ITS ---
[facility] Test Date: 2022-08-31 Pat Name: Jesus Saucedo Department: Room: ICU06 Gender: Male School Principal: : 1935 Requested By: Jeff Easton Order Number: [id number] Anders MD: Ayaan Sen M.D. Measurements Intervals [place] Rate: 51 P: 0 [place]: 0 QRS: -34 QRSD: 114 T: -81 QT: 458 QTc: 425 Interpretive Statements ATRIAL FIBRILLATION WITH SLOW VENTRICULAR RESPONSE WITH ABERRANT CONDUCTION OR VENTRICULAR PREMATURE COMPLEXES LEFT AXIS DEVIATION [QRS AXIS < -30] ST DEVIATION AND MODERATE T-WAVE ABNORMALITY, CONSIDER ANTEROLATERAL ISCHEMIA [-0.1+ mV T-WAVE IN V3-V6] Compared to ECG 08/31/2022 04:55:50 Ventricular premature complex(es) now present Aberrant conduction of supraventricular beat(s) now present Left-axis deviation now present T-wave abnormality now present Possible ischemia now present Ventricular-paced complex(es) or rhythm no longer present Prolonged QT interval no longer present Electronically Signed On 08-31-2022 17:32:54 CUSTOMER SERVICE AGENT by Ayaan Sen M.D. [id number]
[2022-08-31] MEDS: lidocaine 1% 5 ML in potassium chloride premix 100 ML 26.25 ML IV (08:46)
[2022-08-31] MEDS: amiodarone 200 mg Tablet PO ×2 (08:51→17:46)
[2022-08-31] MEDS: metoprolol tartrate 25 mg Tablet 12.5 MG PO ×2 (08:51→17:46)
[2022-08-31] MEDS: potassium chloride ER 20 mEq Tablet 40 MEQ PO (08:52)
[2022-08-31] MEDS: enoxaparin 100 mg/mL Syringe 90 MG SUBCUT (08:53)
[2022-08-31] MEDS: ferrous sulfate EC 325 mg Tablet PO (08:53)
--- NOTE | 2022-08-31 09:01 | PC.PHAR ---
UNABLE TO VERIFY WITH PT DUE TO AMS - UNABLE TO REACH PTS DAUGHTER WHO TAKES CARE OF PTS MEDS- VERIFIED USING EXTERNAL MED LIST LAST FILLED AND DISCHARGE NOTES FROM 08/23/22
[2022-08-31 11:50] LABS: Troponin 5 6HR 63.01 ng/L (0-15); Troponin 5 6HR Delta 10.01 ng/L (0-12)
--- NOTE | 2022-08-31 12:13 | PC.CHAP ---
Pastoral Care Encounter/Spiritual Assessment Type of Contact [] Declined director of strategic communications visit [] Patient/Family/Request visit [] Outpatient visit [] Follow-up visit [] Physician referral [] Code/Alert [x] Routine visit [] Staff referral [] Actively dying [] Patient sleeping [] Family support [] [] Out of room [] Palliative care [] [] Receiving care in room [] Pre-surgical visit [] Trauma [] Long length of stay [x] ICU visit [x] Other: resting well Relational/Emotional Strength [] Patient feels connected with others/family/visitors/staff [] Distress [] Loneliness/isolation [] Abandonment Spirituality of Patient [] Person of Shy [] Attends Protestant of their Shy [] Believes in Prayer [] Reads Bible or Yazidism materials [] There are Spiritual issues to be addressed Branch Service Specialist Interventions [x] Prayer [] Active listening [] Non-anxious presence [] Spiritual/emotional support [] Crisis/trauma care [] Spiritual counseling [] Bereavement support [] Provided bereavement packet [] Provided Bible/devotional materials [] Provided toy/stuffed animal, coloring book to patient or family member [] Provided Communion [] Anointing/[place] [] Salvation [x] Completed spiritual assessment [] Other: Impact on Illness or Injury [] Angry [] Fearful [] Anxious [] Often cries [] Exhaustion [] Unable to work [] Unable to attend episcopal [] Unable to walk/stand [] Unable to read [] Unable to drive [] Unable to eat/drink [] Unable to sleep [] Unable to be with family [] Patient intubated [] Other: Summary Time spent with patient
[2022-08-31] MEDS: acetaminophen 325 mg Tablet 650 MG PO (13:25)
--- NOTE | 2022-08-31 14:23 | PC.NURSE ---
NUrse observed left forearm IV has infiltrated. Sluggisish flow, and swelling and redness proximal to the insertion site. Patient had amiodarone infusing into this IV. Nurse stopped the medication, aspirated the IV, and applied a warm compress. Nurse alerted Dr gonzalez to infiltration. Received orders to discontinue amiodarone, and continue to monitor the site.
--- NOTE | 2022-08-31 16:02 | PM.MISC ---
Miscellaneous Note Purpose of Documentation: Seen today Note: Seen this AM. We will replete electrolytes. We will recheck potassium at 4 PM. We will stop amnio drip. Continue on oral amiodarone 200 twice daily. We will need to adjust his potassium at discharge. Continue to monitor in ICU today.
--- NOTE | 2022-08-31 16:58 | P.CONIM_ITS ---
Providers/Reason For Consult Consulting Physician/Specialty*: Ayaan Sen MD/ Cardiology Reason for Consult*: ICD discharge Requesting Physician: Dr Eid Attending Physician: Charley Covington MD Primary Care Provider: Gene Peralta History of Present Illness History of Present Illness Jesus Saucedo is a 86 year old male with past medical history of hypertension, CAD, ischemic cardiomyopathy, heart failure, atrial fibrillation on Eliquis has presented to hospital with lightheadedness and passing out. He also felt that his defibrillator had shocked him. Went into VT in the ER and was shocked again. His potassium is low. Has been started on amiodarone drip. Had chest pain after ICD shock but now denies chest pain. EKG shows paced rhythm. Review of Systems Const: Reports: fatigue Card: Reports: chest pain, swelling of feet/ankles, lightheadedness and dyspnea on exertion; Denies: palpitations, irregular heart rhythm, syncope, pre-syncope, orthopnea or leg pain with exertion Resp: Reports: dyspnea; Denies: productive cough or non-productive cough Musc: Denies: neck pain or back pain Neuro: Denies: headache(s) or dizziness Psych: Denies: anxiety, depression, suicidal ideation or homicidal ideation Lyle/Lymph: Reports: easy bruising and easy bleeding Medications/Allergies Home Medications Medication Instructions Recorded Confirmed Last Taken Type nitroglycerin 0.4 mg sublingual 0.4 mg sublingual Q5MIN PRN Chest 04/12/21 08/31/22 Unknown History tablet Pain rosuvastatin 40 mg tablet 40 mg PO BEDTIME 04/12/21 08/31/22 07/09/22 History multivit with min-folic 1 tab PO DAILY 04/25/21 08/31/22 07/10/22 History acid-lutein 400 mcg-250 mcg chewable tablet (Centrum Silver) acetaminophen 500 mg tablet 500 mg PO Q6H PRN Pain 05/21/21 08/31/22 06/01/22 History (Tylenol Extra Strength) Thumb Spica #1 ea 02/26/22 08/31/22 Unknown Rx levothyroxine 75 mcg tablet 75 mcg PO QAM 03/02/22 08/31/22 07/10/22 History albuterol sulfate 90 mcg/actuation 2 puff inhalation Q6H PRN 03/04/22 08/31/2222 History aerosol inhaler Shortness Of Breath metoprolol tartrate 25 mg tablet 12.5 mg PO BID #60 tabs 03/25/22 08/31/22 07/10/22 Rx lidocaine 4 % topical patch 1 patch topical DAILY PRN Pain 04/13/22 08/31/22 Unknown History (Salonpas (lidocaine)) clopidogrel 75 mg tablet 75 mg PO QAM #90 tabs 05/11/22 08/31/22 07/10/22 Rx hydrocodone 5 mg-acetaminophen 325 1 tab PO Q6H PRN pain #14 tabs 07/06/22 08/31/22 Unknown Rx mg tablet apixaban 5 mg tablet (Eliquis) 5 mg PO BID@, #180 tabs 07/08/22 08/31/22 07/10/22 Rx amiodarone 200 mg tablet 200 mg PO BID #180 tabs 07/11/22 08/31/22 07/10/22 Rx ferrous sulfate 325 mg (65 mg 325 mg PO DAILY #90 tabs 07/11/22 08/31/22 Unknown Rx iron) tablet (Feosol) polyethylene glycol 3350 17 4 g PO DAILY PRN constipation #119 07/11/22 08/31/22 Unknown Rx gram/dose oral powder (Miralax) grams bumetanide 1 mg tablet 2 mg PO BID 08/22/22 08/31/22 Unknown History potassium chloride 20 mEq 20 meq PO TID #60 tabs 08/23/22 08/31/22 Unknown Rx tablet,extended release Beets 1 tab PO DAILY 08/26/22 08/31/22 Unknown History metolazone 2.5 mg tablet 2.5 mg PO DAILY #10 tabs 08/27/22 08/31/22 Unknown Rx Allergies Allergy/AdvReac Type Severity Reaction Status Date / Time JACKIE Inhibitors Allergy Unknown Unknown Verified 08/26/22 15:06 aspirin Allergy ALGY-Hives Verified 08/26/22 15:06 Latex, Natural Rubber Allergy ALGY-Rash Verified 08/26/22 15:06 Current Medications Generic Name Dose Route Start Last Admin Trade Name Freq PRN Reason Stop Dose Admin Acetaminophen 650 mg 08/31/22 03:10 08/31/22 13:25 Acetaminophen 325 Mg Tablet PO 650 mg Q6H PRN Administration Mild/Mod Pain Or Temp >/= 101 Amiodarone HCl 200 mg 08/31/22 09:00 08/31/22 08:51 Amiodarone 200 Mg Tablet PO 200 mg BID RICARDO Administration Clopidogrel Bisulfate 75 mg 08/31/22 06:00 08/31/22 06:18 Clopidogrel 75 Mg Tablet PO 75 mg QAM RICARDO Administration Ferrous Sulfate 325 mg 08/31/22 09:00 08/31/22 08:53 Ferrous Sulfate Ec 325 Mg Tablet PO 325 mg DAILY RICARDO Administration Amiodarone HCl 900 mg/ 518 mls @ 0 mls/hr 08/31/22 02:30 08/31/22 08:55 Dextrose/ IV Miscellaneous IV 0.5 mg/min Supplies .Q0M RICARDO 17.27 mls/hr Titration Protocol Per Protocol Sodium Chloride 1,000 mls @ 75 mls/hr 08/31/22 03:45 08/31/22 04:55 Sodium Chloride 0.9% IV 75 mls/hr .[id number] RICARDO Administration Levothyroxine Sodium 75 mcg 08/31/22 06:00 08/31/22 06:18 Levothyroxine 75 Mcg Tablet PO 75 mcg QAM RICARDO Administration Metoprolol Tartrate 12.5 mg 08/31/22 09:00 08/31/22 08:51 Metoprolol Tartrate 25 Mg Tablet PO 12.5 mg BID RICARDO Administration PFSH Acute PFSH: Medical History Acute diastolic (congestive) heart failure Acute LA Acute non-ST elevation myocardial infarction (NSTEMI) Acute on chronic systolic heart failure Anemia Anemia Atherosclerosis of coronary artery of [place] heart without angina pectoris Atrial fibrillation Rate control on anticoagulation Cardiomyopathy History of ischemic cardiomyopathy, do not need revascularization, continue optimal medical regimen Chronic kidney disease Coronary artery disease Coronary artery disease Hyperlipidemia Hypertension Well-controlled Sustained VT (ventricular tachycardia) Continue current regimen including beta-ashley, amiodarone. Appear to be stable not in VT anymore. Can be discharged home. Tubular adenoma of colon Ventricular tachycardia Ventricular tachycardia Wide-complex tachycardia Surgical History History of back surgery History of cardiac defibrillator placement Stented coronary artery Family History Mother No problems noted. Father No problems noted. Other CAD (coronary artery disease) Social History Smoking and tobacco status: never smoked Alcohol intake: never Adopted: No Caregiver/support person: Yes Housing: Intermediate Marital status: / Current occupational status: retired Vitals/I&O/Wt Last Vital Signs Temp 98.0 F 08/31/22 12:45 Pulse 59 L 08/31/22 16:15 Resp 19 H 08/31/22 16:15 BP 99/49 08/31/22 16:15 Pulse Ox 96 08/31/22 16:15 O2 Del Method 08/31/22 16:15 O2 Flow Rate 2 08/31/22 08:35 08/31/22 08/31/22 08/31/22 06:59 14:59 22:59 Intake Total 0 / 0 755.454 / 755.454 Output Total 300 / 300 300 / 300 Balance -300 / -300 455.454 / 455.454 Weight last 48 hrs Weight 178 lb 3.2 oz Weight 194 lb Physical Exam Narrative: GENERAL: Patient is alert, awake and oriented x3. [] NECK: No jugular vein distension. [] HEENT: No cyanosis. No icterus. No pallor. [] HEART: Regular S1 and S2. No murmur, rub or gallop. [] LUNGS: Diminished air entry bilaterally CENTRAL NERVOUS SYSTEM: Grossly nonfocal. [] EXTREMITIES: Lower extremities with 1+ edema bilaterally. Data 08/31/22 06:47 A&P Assessment and plan (1) Ventricular tachycardia: (2) AICD discharge: (3) Acute kidney injury superimposed on CKD: (4) Hypokalemia: (5) Hyperlipidemia: (6) Atrial fibrillation: (7) CAD (coronary artery disease): Plan Patient has presented with multiple VT episodes with ICD discharges. He had significant hypokalemia.had similar presentation recently in setting of hypokalemia. Replace potassium Can switch amiodarone gtt to PO amiodarone 200mg BID Continue diuresis Continue ICU monitoring today Will need more aggressive outpatient potassium replacement Thank you for involving us with care of this patient. We will continue to follow. Please call with questions. Consult Attestations Medical Necessity Statement: Care expected to cross 2 midnights. Coding Level of Care Code Acute Code for Chg Fwd Diagnoses Ventricular tachycardia I47.20 AICD discharge Z45.02 Acute kidney injury superimposed on CKD N17.9; N18.9 Hypokalemia E87.6 Hyperlipidemia E78.5 Atrial fibrillation I48.91 CAD (coronary artery disease) I25.10
[2022-08-31 17:08] LABS: Blood Urea Nitrogen 28 mg/dL (8-23); Carbon Dioxide 23 mmol/L (22-29); Chloride 99 mmol/L (98-107); Glucose 83 mg/dL (65-115); Osmolality Calculated 283 mOsm/kg (285-295); Sodium 134 mmol/L (136-145)
[2022-08-31 17:14] LABS: Anion Gap 16.3 (5-19); Potassium 4.3 mmol/L (3.5-5.1)
--- NOTE | 2022-08-31 18:35 | PC.NURSE ---
Shift Summary: uneventful shift. Patient was up to the chair for about half of the day. Transitions form bed to chair with standby assist only. Potassium levels have returned to normal range. IV amiodarone discontinued. No cardiac events throughout the day.
[2022-08-31] MEDS: enoxaparin 80 mg/0.8 mL Syringe SUBCUT (20:32)
[2022-08-31] MEDS: atorvastatin 40 mg Tablet 80 MG PO (20:33)
[2022-09-01] VITALS (157 sets, daily range): BP systolic 107–157; BP diastolic 49–74; PULSE 49–77; RESP 13–27; TEMP 36.5–37.5; O2SAT 90–98
[2022-09-01 03:14] LABS: Basophils # 0.1 10^3/uL (0.0-0.1); Basophils % 0.8 %; Eosinophils # 0.3 10^3/uL (0.0-0.8); Eosinophils % 4.9 %; Hematocrit 33.2 % (42.0-52.0); Lymphocytes # 1.5 10^3/uL (0.8-4.8); Lymphocytes % 23.3 %; Mean Corpuscular HGB Conc 30.1 g/dL (30.0-36.0); Mean Corpuscular Hemoglobin 27.5 pg (28.0-34.0); Mean Corpuscular Volume 91.2 fl (80-94); Mean Platelet Volume 9.7 fL (7.4-10.4); Monocytes % 15.8 %; Neutrophils # 3.49 10^3/uL (1.8-7.7); Nucleated Red Blood Cells % 0 %; Platelet Count 238 10^3/cmm (130-400); Red Blood Count 3.64 10^6/uL (4.1-5.3); Red Cell Distribution Width 23.5 % (12.1-15.1); White Blood Count 6.3 10^3/uL (4.0-10.0)
[2022-09-01 03:36] LABS: Anion Gap 13.1 (5-19); Blood Urea Nitrogen 25 mg/dL (8-23); Calcium 8.5 mg/dL (8.5-10.5); Carbon Dioxide 25 mmol/L (22-29); Chloride 102 mmol/L (98-107); Glucose 93 mg/dL (65-115); Magnesium 2.3 mg/dL (1.7-2.3); Osmolality Calculated 288 mOsm/kg (285-295); Potassium 3.1 mmol/L (3.5-5.1); Sodium 137 mmol/L (136-145)
[2022-09-01] MEDS: levothyroxine 75 mcg Tablet PO (06:18)
[2022-09-01] MEDS: clopidogrel 75 mg Tablet PO (06:18)
--- NOTE | 2022-09-01 07:08 | PM.PN ---
Subjective Subjective: Patient is doing well. No shortness of breathness. Vitals/I&O/Wt Last Vital Signs Temp 97.5 F L 08/31/22 19:00 Pulse 54 L 09/01/22 06:00 Resp 16 09/01/22 05:05 BP 150/71 09/01/22 05:05 Pulse Ox 92 09/01/22 05:05 O2 Del Method 08/31/22 16:15 O2 Flow Rate 2 08/31/22 08:35 08/31/22 09/01/22 09/01/22 22:59 06:59 14:59 Intake Total 1000 / 1755.454 250 / 2005.454 Output Total 400 / 700 400 / 1100 Balance 600 / 1055.454 -150 / 905.454 Weight last 48 hrs Weight 178 lb 3.2 oz Weight 194 lb Physical Exam Narrative: GENERAL: Patient is alert, awake and oriented x3. [] NECK: No jugular vein distension. [] HEENT: No cyanosis. No icterus. No pallor. [] HEART: Regular S1 and S2. No murmur, rub or gallop. [] LUNGS: Diminished air entry bilaterally CENTRAL NERVOUS SYSTEM: Grossly nonfocal. [] EXTREMITIES: Lower extremities with 1+ edema bilaterally. Data 09/01/22 02:26 09/01/22 02:26 A&P Assessment and plan (1) Ventricular tachycardia: (2) AICD discharge: (3) Acute kidney injury superimposed on CKD: (4) Hypokalemia: (5) Hyperlipidemia: (6) Atrial fibrillation: (7) CAD (coronary artery disease): Plan No more episodes of ventricular tachycardia. Likely secondary to hypokalemia. Replace as needed. Can switch to p.o. diuretics. Will need higher dose of potassium replacement. Potassium sparing diuretic added. Continue amiodarone 200 mg daily. Thank you for involving us with care of this patient. We will continue to follow. Please call with questions. Attestations Medical Necessity Statement*: Care expected to cross 2 midnights. Coding Level of Care Code Acute Code for g Fwd Diagnoses Ventricular tachycardia I47.20 AICD discharge Z45.02 Acute kidney injury superimposed on CKD N17.9; N18.9 Hypokalemia E87.6 Hyperlipidemia E78.5 Atrial fibrillation I48.91 CAD (coronary artery disease) I25.10
[2022-09-01] MEDS: potassium chloride ER 20 mEq Tablet 40 MEQ PO ×2 (08:41→17:40)
[2022-09-01] MEDS: enoxaparin 80 mg/0.8 mL Syringe SUBCUT ×2 (08:41→21:00)
[2022-09-01] MEDS: amiodarone 200 mg Tablet PO ×2 (08:41→17:40)
[2022-09-01] MEDS: ferrous sulfate EC 325 mg Tablet PO (08:41)
[2022-09-01] MEDS: metoprolol tartrate 25 mg Tablet 12.5 MG PO ×2 (08:59→17:41)
--- NOTE | 2022-09-01 13:12 | PM.PN ---
Subjective Subjective: seen today k 3.1 cr 1.7 today comfortably seated in chair Vitals/I&O/Wt Last Vital Signs Temp 97.7 F 09/01/22 12:00 Pulse 52 L 09/01/22 08:10 Resp 15 09/01/22 08:10 BP 136/63 09/01/22 08:10 Pulse Ox 92 09/01/22 08:10 O2 Del Method 08/31/22 16:15 O2 Flow Rate 2 08/31/22 08:35 08/31/22 09/01/22 09/01/22 22:59 06:59 14:59 Intake Total 1000 / 1755.454 250 / 2005.454 1240 / 1240 Output Total 400 / 700 400 / 1100 450 / 450 Balance 600 / 1055.454 -150 / 905.454 790 / 790 Weight last 48 hrs Weight 80.83 kg Weight 87.997 kg Physical Exam Const: COMMON NORMALS: patient oriented x3 HENMT: COMMON NORMALS: normocephalic and atraumatic HEAD & SCALP: normocephalic and atraumatic Resp: COMMON NORMALS: clear to auscultation bilaterally EFFORT & INSPECTION: Yes symmetric chest movement AUSCULTATION: clear to auscultation bilaterally Cardio: COMMON NORMALS: regular rate, regular rhythm, S1 normal heart sound present, S2 normal heart sound present, No gallops present (Cardio), No murmurs present (Cardio), No rub (Cardio) and Peripheral pulses 2+ throughout RATE: regular rate RHYTHM: regular rhythm HEART SOUNDS: S1 normal heart sound present and S2 normal heart sound present PERIPHERAL PULSES: Peripheral pulses 2+ throughout GI: COMMON NORMALS: Normal to inspection, nondistended, normoactive bowel sounds present, Soft to palpation, non-tender, No hepatosplenomegaly present and no masses AUSCULTATION: Yes normoactive bowel sounds PALPATION: Yes Soft to palpation and Yes No hepatosplenomegaly present RECTAL EXAM: Yes deferred Extremity: NARRATIVE EXTREMITY EXAM: Bilateral 2+ lower extremity pitting edema Neuro: COMMON NORMALS: patient oriented x3 Data 09/01/22 02:26 09/01/22 02:26 A&P Assessment and plan (1) Ventricular tachycardia: (2) AICD discharge: (3) Status post implantation of automatic cardioverter/defibrillator (AICD): (4) Atrial fibrillation: (5) Hypertension: (6) Acute kidney injury superimposed on CKD: (7) Hypokalemia: Plan 86 year old male with past medical history of hypertension, hypothyroidism, coronary artery disease, ischemic cardiomyopathy, heart failure with preserved ejection fraction, history of VT AICD in place, chronic anemia, atrial fibrillation, on Eliquis, came in today when his AICD went off twice today at home,he was sleeping at that time, and when he woke up he was having some chest discomfort. Assessment: Ventricular tachycardia: Status post AICD discharge KARL on CKD Afib, rate controlled HFrEF Hx of CAD Most recent 2D echo : has shown new drop in EF, as compared to 2D echo done in 03/26: Diffuse hypokinesia of the left ventricule with an ejection ?fraction of 40%.?Mildly dilated left-ventricule.?Grade III/IV diastolic dysfunction (restrictive filling?pattern), severely elevated filling pressures.?Moderate biatrial enlargement?Normal RV size ejection fraction.?Thickened mitral valve. Mild mitral annular calcification.?Possibly severe mitral valve regurgitation.?Thickened aortic valve. Trace to mild aortic valve?regurgitation.?Moderate tricuspid valve regurgitation.??Severe pulmonary hypertension with an estimated pulmonary artery?peak systolic pressure of 111 mmHg.?There is no pericardial effusion. Keep K > 4, Mg > 2 Continue p.o. amiodarone Continue p.o. metoprolol Cardiology on board Consult nephrology as per family request Baseline scr is around 1.3 Admission scr : 1.9 Today cr 1.7 monitor BMP Avoid nephrotoxics Continue therapeutic lovenox Transition to eliquis at discharge Talked with nephrology and discussed case History of hypothyroidism: Am TSH : Continue levothyroxine CODE STATUS: Full code DVT prophylaxis not needed: On therapeutic anticoagulation with Lovenox Attestations Medical Necessity Statement*: COntinue to monitor in hospital today Diagnoses Ventricular tachycardia I47.20 AICD discharge Z45.02 Status post implantation of automatic cardioverter/defibrillator (AICD) Z95.810 Atrial fibrillation I48.91 Hypertension I10 Acute kidney injury superimposed on CKD N17.9; N18.9 Hypokalemia E87.6
--- NOTE | 2022-09-01 13:29 | PC.NURSE ---
This nurse clarified order of metoprolol and potassium with Dr. Covington. Order received to continue metoprolol but to hold the K rider. Patient received discharge orders to go home today. Family notified and daughters expressed great concern of patient going home with potassium level of 3.1. This nurse then notified Dr. Covington of daughters request of wanting their father to stay another night to ensure potassium levels increase. Dr. Covington is in communication with the dynamics ax technical architect trying to establish what needs done for this patient.
[2022-09-01 15:13] LABS: Urine Random Chloride 59 mmol/L; Urine Random Sodium 47 mmol/L
[2022-09-01 16:31] LABS: Potassium Urine Random 62.02
[2022-09-01] MEDS: bumetanide 1 mg Tablet PO (17:41)
[2022-09-01] MEDS: spironolactone 25 mg Tablet PO (17:41)
[2022-09-01] MEDS: atorvastatin 40 mg Tablet 80 MG PO (21:00)
--- NOTE | 2022-09-01 21:20 | P.CONIM_ITS ---
Providers/Reason For Consult Consulting Physician/Specialty*: Kommana /Nephrology Reason for Consult*: hypokalemia Attending Physician: Charley Covington MD Primary Care Provider: Gene Peralta History of Present Illness History of Present Illness Jesus Saucedo is a 86 year old male Patient is 86-year-old male with past medical history of hypertension, coronary artery disease ischemic cardiomyopathy with ejection fraction 25% and history of V. tach with AICD in place, A-fib on Eliquis, was admitted to the hospital due to electrolyte abnormalities including hypokalemia and a CD went all with shocks. Patient was noted to have low potassium of 2.8 currently at 3.1. Recently his diuretic doses were increased by his material handling technician due to worsening shortness of breath and edema. Lab data significant for potassium of 2.8 and creatinine of 1.9 on presentation creatinine improved to 1.7 currently. Review of Systems Narrative: negative Medications/Allergies Home Medications Medication Instructions Recorded Confirmed Last Taken Type nitroglycerin 0.4 mg sublingual 0.4 mg sublingual Q5MIN PRN Chest 04/12/21 08/31/22 Unknown History tablet Pain rosuvastatin 40 mg tablet 40 mg PO BEDTIME 04/12/21 08/31/22 07/09/22 History multivit with min-folic 1 tab PO DAILY 04/25/21 08/31/22 07/10/22 History acid-lutein 400 mcg-250 mcg chewable tablet (Centrum Silver) acetaminophen 500 mg tablet 500 mg PO Q6H PRN Pain 05/21/21 08/31/22 06/01/22 History (Tylenol Extra Strength) Thumb Spica #1 ea 02/26/22 08/31/22 Unknown Rx levothyroxine 75 mcg tablet 75 mcg PO QAM 03/02/22 08/31/22 07/10/22 History albuterol sulfate 90 mcg/actuation 2 puff inhalation Q6H PRN 03/04/22 08/31/22 06/01/22 History aerosol inhaler Shortness Of Breath metoprolol tartrate 25 mg tablet 12.5 mg PO BID #60 tabs 03/25/22 08/31/22 07/10/22 Rx lidocaine 4 % topical patch 1 patch topical DAILY PRN Pain 04/13/22 08/31/22 Unknown History (Salonpas (lidocaine)) clopidogrel 75 mg tablet 75 mg PO QAM #90 tabs 05/11/22 08/31/22 07/10/22 Rx hydrocodone 5 mg-acetaminophen 325 1 tab PO Q6H PRN pain #14 tabs 07/06/22 08/31/22 Unknown Rx mg tablet apixaban 5 mg tablet (Eliquis) 5 mg PO BID@07,19 #180 tabs 07/08/22 08/31/22 07/10/22 Rx amiodarone 200 mg tablet 200 mg PO BID #180 tabs 07/11/22 08/31/22 07/10/22 Rx ferrous sulfate 325 mg (65 mg 325 mg PO DAILY #90 tabs 07/11/22 08/31/22 Unknown Rx iron) tablet (Feosol) polyethylene glycol 3350 17 4 g PO DAILY PRN constipation #119 07/11/22 08/31/22 Unknown Rx gram/dose oral powder (Miralax) grams bumetanide 1 mg tablet 2 mg PO BID 08/22/22 08/31/22 Unknown History potassium chloride 20 mEq 20 meq PO TID #60 tabs 08/23/22 08/31/22 Unknown Rx tablet,extended release Beets 1 tab PO DAILY 08/26/22 08/31/22 Unknown History metolazone 2.5 mg tablet 2.5 mg PO DAILY #10 tabs 08/27/22 08/31/22 Unknown Rx Allergies Allergy/AdvReac Type Severity Reaction Status Date / Time JACKIE Inhibitors Allergy Unknown Unknown Verified 08/26/22 15:06 aspirin Allergy ALGY-Hives Verified 08/26/22 15:06 Latex, Natural Rubber Allergy ALGY-Rash Verified 08/26/22 15:06 Current Medications Generic Name Dose Route Start Last Admin Trade Name Freq PRN Reason Stop Dose Admin Acetaminophen 650 mg 08/31/22 03:10 08/31/22 13:25 Acetaminophen 325 Mg Tablet PO 650 mg Q6H PRN Administration Mild/Mod Pain Or Temp >/= 101 Amiodarone HCl 200 mg 08/31/22 09:00 09/01/22 17:40 Amiodarone 200 Mg Tablet PO 200 mg BID RICARDO Administration Atorvastatin Calcium 80 mg 08/31/22 21:00 09/01/22 21:00 Atorvastatin 40 Mg Tablet PO 80 mg BEDTIME RICARDO Administration Bumetanide 1 mg 09/01/22 18:00 09/01/22 17:41 Bumetanide 1 Mg Tablet PO 1 mg BID RICARDO Administration Clopidogrel Bisulfate 75 mg 08/31/22 06:00 09/01/22 06:18 Clopidogrel 75 Mg Tablet PO 75 mg QAM RICARDO Administration Enoxaparin Sodium 80 mg 08/31/22 21:00 09/01/22 21:00 Enoxaparin 80 Mg/0.8 Ml Syringe SUBCUT 80 mg Q12H RICARDO Administration Ferrous Sulfate 325 mg 08/31/22 09:00 09/01/22 08:41 Ferrous Sulfate Ec 325 Mg Tablet PO 325 mg DAILY RICARDO Administration Levothyroxine Sodium 75 mcg 08/31/22 06:00 09/01/22 06:18 Levothyroxine 75 Mcg Tablet PO 75 mcg QAM RICARDO Administration Metoprolol Tartrate 12.5 mg 08/31/22 09:00 09/01/22 17:41 Metoprolol Tartrate 25 Mg Tablet PO 12.5 mg BID RICARDO Administration Potassium Chloride 40 meq 09/01/22 18:00 09/01/22 17:40 Potassium Chloride Er 20 Meq Tablet PO 09/02/22 09:01 40 meq BID RICARDO Administration Spironolactone 25 mg 09/01/22 17:15 09/01/22 17:41 Spironolactone 25 Mg Tablet PO 25 mg DAILY RICARDO Administration PFSH Acute PFSH: Medical History Acute diastolic (congestive) heart failure Acute [place] Acute non-ST elevation myocardial infarction (NSTEMI) Acute on chronic systolic heart failure Anemia Anemia Atherosclerosis of coronary artery of [place] heart without angina pectoris Atrial fibrillation Rate control on anticoagulation Cardiomyopathy History of ischemic cardiomyopathy, do not need revascularization, continue optimal medical regimen Chronic kidney disease Coronary artery disease Coronary artery disease Hyperlipidemia Hypertension Well-controlled Sustained VT (ventricular tachycardia) Continue current regimen including beta-ashley, amiodarone. Appear to be stable not in VT anymore. Can be discharged home. Tubular adenoma of colon Ventricular tachycardia Ventricular tachycardia Wide-complex tachycardia Surgical History History of back surgery History of cardiac defibrillator placement Stented coronary artery Family History Mother No problems noted. Father No problems noted. Other CAD (coronary artery disease) Social History Smoking and tobacco status: never smoked Alcohol intake: never Adopted: No Caregiver/support person: Yes Housing: Detention Marital status: / Current occupational status: retired Vitals/I&O/Wt Last Vital Signs Temp 99.5 F 09/01/22 19:00 Pulse 55 L 09/01/22 20:15 Resp 16 09/01/22 20:15 BP 139/52 09/01/22 20:15 Pulse Ox 96 09/01/22 20:15 O2 Del Method 08/31/22 16:15 O2 Flow Rate 2 08/31/22 08:35 09/01/22 09/01/22 09/01/22 06:59 14:59 22:59 Intake Total 250 / 2005.454 1240 / 1240 360 / 1600 Output Total 400 / 1100 450 / 450 1450 / 1900 Balance -150 / 905.454 790 / 790 -1090 / -300 Weight last 48 hrs Weight 80.83 kg Weight 87.997 kg Data 09/01/22 02:26 09/01/22 02:26 A&P Assessment and plan (1) Hypokalemia: Plan 1. Hypokalemia: Secondary to potassium losses from diuretic use. Currently on 20 mEq p.o. 3 times daily at home KCl, magnesium level normal. Would benefit from adding potassium sparing diuretic in addition to Bumex. Will discuss with cardiology. 2. KARL: Secondary to possible cardiorenal, creatinine was 1.9 on presentation improved to 1.7 today, baseline creatinine in the 0.9-1 range. 3. History of coronary artery disease with cardiomyopathy, status post AICD: Management per cardiology Patient evaluated using audiovisual cart. Discussed with patient daughter. Time spent 45 minutes. Consult Attestations Medical Necessity Statement: Care expected to cross 2 midnights. Coding Level of Care Code Acute Code for g Fwd Diagnoses Hypokalemia E87.6
[2022-09-01 21:56] LABS: Anion Gap 12.8 (5-19); Blood Urea Nitrogen 17 mg/dL (8-23); Calcium 8.8 mg/dL (8.5-10.5); Carbon Dioxide 25 mmol/L (22-29); Chloride 103 mmol/L (98-107); Glucose 102 mg/dL (65-115); Osmolality Calculated 286 mOsm/kg (285-295); Potassium 3.8 mmol/L (3.5-5.1); Sodium 137 mmol/L (136-145)
[2022-09-02] VITALS (58 sets, daily range): BP systolic 96–138; BP diastolic 49–68; PULSE 50–62; RESP 10–22; O2SAT 93–99
[2022-09-02 03:57] LABS: Basophils # 0.1 10^3/uL (0.0-0.1); Basophils % 0.9 %; Eosinophils # 0.2 10^3/uL (0.0-0.8); Eosinophils % 4.6 %; Hematocrit 33.1 % (42.0-52.0); Hemoglobin 9.8 g/dL (11.7-16.6); Lymphocytes # 1.3 10^3/uL (0.8-4.8); Lymphocytes % 24.3 %; Mean Corpuscular HGB Conc 29.6 g/dL (30.0-36.0); Mean Corpuscular Volume 91.2 fl (80-94); Mean Platelet Volume 9.5 fL (7.4-10.4); Monocytes # 0.9 10^3/uL (0.2-0.9); Monocytes % 17.1 %; Neutrophils # 2.79 10^3/uL (1.8-7.7); Neutrophils % 52.9 %; Nucleated Red Blood Cells % 0 %; Platelet Count 250 10^3/cmm (130-400); Red Blood Count 3.63 10^6/uL (4.1-5.3); Red Cell Distribution Width 23.3 % (12.1-15.1); White Blood Count 5.3 10^3/uL (4.0-10.0)
[2022-09-02 04:24] LABS: Anion Gap 11.3 (5-19); Blood Urea Nitrogen 17 mg/dL (8-23); Carbon Dioxide 26 mmol/L (22-29); Chloride 103 mmol/L (98-107); Glucose 94 mg/dL (65-115); Magnesium 2.3 mg/dL (1.7-2.3); Osmolality Calculated 285 mOsm/kg (285-295); Potassium 3.3 mmol/L (3.5-5.1); Sodium 137 mmol/L (136-145)
[2022-09-02] MEDS: levothyroxine 75 mcg Tablet PO (06:39)
[2022-09-02] MEDS: clopidogrel 75 mg Tablet PO (06:39)
--- NOTE | 2022-09-02 07:57 | PM.PN ---
Subjective Subjective: Patient is doing well. No more shocks. Vitals/I&O/Wt Last Vital Signs Temp 99.5 F 09/01/22 19:00 Pulse 51 L 09/02/22 07:00 Resp 14 09/02/22 07:00 BP 122/59 09/02/22 07:00 Pulse Ox 97 09/02/22 07:00 O2 Del Method 08/31/22 16:15 O2 Flow Rate 2 08/31/22 08:35 09/01/22 09/02/22 09/02/22 22:59 06:59 14:59 Intake Total 360 / 1600 Output Total 1599 / 0 200 / 2250 Balance -1240 / -450 -200 / -650 Physical Exam Narrative: GENERAL: Patient is alert, awake and oriented x3. [] NECK: No jugular vein distension. [] HEENT: No cyanosis. No icterus. No pallor. [] HEART: Regular S1 and S2. No murmur, rub or gallop. [] LUNGS: Diminished air entry bilaterally CENTRAL NERVOUS SYSTEM: Grossly nonfocal. [] EXTREMITIES: Lower extremities with 1+ edema bilaterally. Data 09/02/22 03:22 09/02/22 03:22 A&P Assessment and plan (1) Ventricular tachycardia: (2) AICD discharge: (3) Acute kidney injury superimposed on CKD: (4) Hypokalemia: (5) Hyperlipidemia: (6) Atrial fibrillation: (7) CAD (coronary artery disease): Plan Continue amiodarone. Increase the potassium replacement. Close follow-up of labs. Patient is stable to be discharged from cardiology standpoint. Please call with questions. Attestations Medical Necessity Statement*: Care expected to cross 2 midnights. Coding Level of Care Code Acute Code for g Fwd Diagnoses Ventricular tachycardia I47.20 AICD discharge Z45.02 Acute kidney injury superimposed on CKD N17.9; N18.9 Hypokalemia E87.6 Hyperlipidemia E78.5 Atrial fibrillation I48.91 CAD (coronary artery disease) I25.10
[2022-09-02] MEDS: bumetanide 1 mg Tablet PO (08:33)
[2022-09-02] MEDS: amiodarone 200 mg Tablet PO (08:33)
[2022-09-02] MEDS: spironolactone 25 mg Tablet PO (08:33)
[2022-09-02] MEDS: ferrous sulfate EC 325 mg Tablet PO (08:34)
[2022-09-02] MEDS: metoprolol tartrate 25 mg Tablet 12.5 MG PO (08:34)
[2022-09-02] MEDS: potassium chloride ER 20 mEq Tablet 40 MEQ PO (08:36)
[2022-09-02] MEDS: enoxaparin 80 mg/0.8 mL Syringe SUBCUT (08:36)
--- NOTE | 2022-09-02 10:11 | PM.PN ---
Subjective Subjective: no new complaints Medications: Reviewed: Yes Vitals/I&O/Wt Last Vital Signs Temp 99.5 F 09/01/22 19:00 Pulse 51 L 09/02/22 09:00 Resp 16 09/02/22 09:00 BP 100/55 09/02/22 09:00 Pulse Ox 96 09/02/22 09:00 O2 Del Method 08/31/22 16:15 O2 Flow Rate 2 08/31/22 08:35 09/01/22 09/02/22 09/02/22 22:59 06:59 14:59 Intake Total 360 / 1600 400 / 400 Output Total 1600 / 0 200 / 2250 Balance -1240 / -450 -200 / -650 400 / 400 Physical Exam Narrative: awake, alert , no acute distress HEENT S1 S2 RRR per report clear suad per report Data 09/02/22 03:22 09/02/22 03:22 A&P Assessment and plan (1) Hypokalemia: Plan 1. Hypokalemia: Secondary to potassium losses from diuretic use. Currently on 20 mEq p.o. 3 times daily at home KCl, magnesium level normal. Added Aldactone in addition to Bumex. k is 3.3 today , will give extra 20 meq . OK to DC with close follow up labs 2. KARL: Secondary to possible cardiorenal, creatinine was 1.9 on presentation improved to 1.3 today, baseline creatinine in the 0.9-1 range. 3. History of coronary artery disease with cardiomyopathy, status post AICD: Management per cardiology Patient evaluated using audiovisual cart. Discussed with patient daughter. Time spent 45 minutes. Attestations Medical Necessity Statement*: OK to DC Coding Level of Care Code Acute Code for Chg Fwd Diagnoses Hypokalemia E87.6
--- NOTE | 2022-09-02 10:21 | P.DS_ITS ---
Discharge Providers Date of Admission: 08/31/22 03:19 Date of Discharge: September 02, 2022 Attending Provider at Admission: Giovani Moses MD Attending Provider at Discharge: Charley Covington MD Primary Care Provider: Gene Peralta Diagnoses at Discharge Discharge Diagnosis (1) Hypokalemia: Status: Resolved Reason for Visit Reason for Visit: chest pain, shocked by defib Brief History: Jesus Saucedo is a 86 year old male with past medical history of hypertension, hypothyroidism, coronary artery disease, ischemic cardiomyopathy, heart failure with preserved ejection fraction, history of VT AICD in place, chronic anemia, atrial fibrillation, on Eliquis, came in today when his AICD went off twice today at home,he was sleeping at that time, and when he woke up he was having some chest discomfort. When he arrived in the ER, AICD Went off again around 4 times, he received total of 300 bolus of amidarone as well as was started on amidarone drip.He has recent hospitalization for similar complain.2 Decho done during that admission results have been reviewed.Patient was also found to be hypokalemic on aarival for which pottasium supplementation was started.he was also found to be in KARL on this admission possibly prerenal KARL, admission SCR was ;? 1.9 . Xray chest showed:chronic changes, no pulmonary vascular congestion, no effusion, no infiltrates Pertinent labs: WBC : 6, H&H 10./33, PLT : 238 , sodium 134 potassium 2.8, BUN 26, SCR: 1.9 , Baseline troponin 53-63-63 , pro bnp: 1023? Hospital Course Hospital Course Patient admitted for ventricular tachycardia AICD discharge.? Potassium was found to be very low at admission in the 2 range.? Electrolytes were corrected.? He was recently seen in cardiology clinic with fluid overload and was put on Bumex and metolazone which may have caused the hypokalemia. He was optimized from potassium standpoint during hospital stay. He will be discharged home on spironolactone, Bumex, potassium 40 twice daily. Nephrology was also consulted. Patient was advised to avoid salty foods. He was given labs to recheck potassium twice a week and then to follow-up with cardiology and primary care as an outpatient. Patient's daughter was contacted by nephrology at discharge who agreed with the plan. Cardiology was also on board. Patient discharged home in stable condition. Physical Exam Const: COMMON NORMALS: patient oriented x3 HENMT: COMMON NORMALS: normocephalic and atraumatic HEAD & SCALP: normocephalic and atraumatic Resp: COMMON NORMALS: clear to auscultation bilaterally EFFORT & INSPECTION: Yes symmetric chest movement AUSCULTATION: clear to auscultation bilaterally Cardio: COMMON NORMALS: regular rate, regular rhythm, S1 normal heart sound present, S2 normal heart sound present, No gallops present (Cardio), No murmurs present (Cardio), No rub (Cardio) and Peripheral pulses 2+ throughout RATE: regular rate RHYTHM: regular rhythm HEART SOUNDS: S1 normal heart sound present and S2 normal heart sound present PERIPHERAL PULSES: Peripheral pulses 2+ throughout GI: COMMON NORMALS: Normal to inspection, nondistended, normoactive bowel sounds present, Soft to palpation, non-tender, No hepatosplenomegaly present and no masses AUSCULTATION: Yes normoactive bowel sounds PALPATION: Yes Soft to palpation and Yes No hepatosplenomegaly present RECTAL EXAM: Yes deferred Extremity: NARRATIVE EXTREMITY EXAM: Bilateral 2+ lower extremity pitting edema Neuro: COMMON NORMALS: patient oriented x3 Discharge Data Studies Completed and Pending Completed Studies During Hospitalization Category Date Time Status XR chest 1V portable [id number] Stat Exams 08/31/22 02:11 Completed Pending at discharge Category Date Time Status Basic Metabolic Panel AM LABS Lab 09/03/22 04:00 Ordered Complete Blood Count w/Auto AM LABS Lab 09/03/22 04:00 Ordered Magnesium AM LABS Lab 09/03/22 04:00 Ordered Radiology Impressions Chest X-Ray 08/31/22 02:11 IMPRESSION: 1. No focal acute pulmonary disease. 2. No change from comparison. Chronic interstitial lung changes apparent. Laboratory Results WBC 5.3 10^3/uL (4.0-10.0) 09/02/22 03:22 RBC 3.63 10^6/uL (4.1-5.3) L 09/02/22 03:22 Hgb 9.8 g/dL (11.7-16.6) L 09/02/22 03:22 Hct 33.1 % (42.0-52.0) L 09/02/22 03:22 MCV 91.2 fl (80-94) 09/02/22 03:22 MCH 27.0 pg (28.0-34.0) L 09/02/22 03:22 MCHC 29.6 g/dL (30.0-36.0) L 09/02/22 03:22 RDW 23.3 % (12.1-15.1) H 09/02/22 03:22 Plt Count 250 10^3/cmm (130-400) 09/02/22 03:22 MPV 9.5 fL (7.4-10.4) 09/02/22 03:22 Neut % (Auto) 52.9 % 09/02/22 03:22 Lymph % (Auto) 24.3 % 09/02/22 03:22 [place] % (Auto) 17.1 % 09/02/22 03:22 Eos % (Auto) 4.6 % 09/02/22 03:22 Baso % (Auto) 0.9 % 09/02/22 03:22 Neut # (Auto) 2.79 10^3/uL (1.8-7.7) 09/02/22 03:22 Lymph # (Auto) 1.3 10^3/uL (0.8-4.8) 09/02/22 03:22 [place] # (Auto) 0.9 10^3/uL (0.2-0.9) 09/02/22 03:22 Eos # (Auto) 0.2 10^3/uL (0.0-0.8) 09/02/22 03:22 Baso # (Auto) 0.1 10^3/uL (0.0-0.1) 09/02/22 03:22 Nucleated RBC % (auto) 0 % 09/02/22 03:22 Nucleated RBCs # 0.0 /100WBC 09/02/22 03:22 PT 14.60 SECONDS (12.1-14.9) 08/31/22 01:57 INR 1.10 (0.8-1.2) 08/31/22 01:57 APTT 25.6 SECONDS (23.9-36.7) 08/31/22 01:57 Sodium 137 mmol/L (136-145) 09/02/22 03:22 Potassium 3.3 mmol/L (3.5-5.1) L 09/02/22 03:22 Chloride 103 mmol/L (98-107) 09/02/22 03:22 Carbon Dioxide 26 mmol/L (22-29) 09/02/22 03:22 Anion Gap 11.3 (5-19) 09/02/22 03:22 BUN 17 mg/dL (8-23) 09/02/22 03:22 Creatinine 1.3 mg/dL (0.7-1.2) H 09/02/22 03:22 GFR Calculation Not Reportable 09/02/22 03:22 Glucose 94 mg/dL (65-115) 09/02/22 03:22 Calculated Osmolality 285 mOsm/kg (285-295) 09/02/22 03:22 Calcium 9.0 mg/dL (8.5-10.5) 09/02/22 03:22 Magnesium 2.3 mg/dL (1.7-2.3) 09/02/22 03:22 Total Bilirubin 0.8 mg/dL (0.15-1.2) 08/31/22 01:57 AST 31 U/L (0-40) 08/31/22 01:57 ALT 17 U/L (0-41) 08/31/22 01:57 Alkaline Phosphatase 118 U/L (40-130) 08/31/22 01:57 Troponin T Baseline 53 ng/L (0-15) H 08/31/22 01:57 Troponin T 120 Minute 63.02 ng/L (0-15) H 08/31/22 06:47 Delta Troponin T 10.02 ABS# (0-10) H* 08/31/22 06:47 Troponin T Hi Sens 6Hr 63.01 ng/L (0-15) H 08/31/22 11:12 Troponin T Hi Sens 6Hr Delta 10.01 ng/L (0-12) 08/31/22 11:12 NT-Pro-B Natriuret Pep 1023 pg/mL (0-450) H 08/31/22 01:57 Total Protein 7.7 g/dL (6.6-8.7) 08/31/22 01:57 Albumin 3.7 g/dL (3.5-5.2) 08/31/22 01:57 Globulin 4.0 g/dL (1.3-4.6) 08/31/22 01:57 Ur Random Sodium 47 mmol/L 09/01/22 13:48 Ur Random Potassium 62.02 09/01/22 13:48 Ur Random Chloride 59 mmol/L 09/01/22 13:48 Vitals Last Vital Signs Temp 99.5 F 09/01/22 19:00 Pulse 51 L 09/02/22 09:00 Resp 16 09/02/22 09:00 BP 100/55 09/02/22 09:00 Pulse Ox 96 09/02/22 09:00 O2 Del Method 08/31/22 16:15 O2 Flow Rate 2 08/31/22 08:35 Discharge Plan Discharge Patient Disposition: Home Condition: Fair Prescriptions: New spironolactone 25 mg Tablet 12.5 mg PO DAILY 30 Days Qty: 15 0RF Klor-Con M20 20 mEq Tablet,Er Particles/Crystals 40 meq PO BID 30 Days Qty: 120 0RF Continued acetaminophen [Tylenol Extra Strength] 500 mg tablet 500 mg PO Q6H PRN (Reason: Pain) metoprolol tartrate 25 mg tablet 12.5 mg PO BID Qty: 60 3RF Beets 1 tab PO DAILY lidocaine [Salonpas (lidocaine)] 4 % adhesive patch,medicated 1 patch topical DAILY PRN (Reason: Pain) (DME) Thumb Spica See Rx Instructions .Route .MEDSUPPLY Qty: 1 0RF Rx Instructions: As directed. clopidogrel 75 mg tablet 75 mg PO QAM Qty: 90 3RF Hold Instructions: Resume on 06/06/22. Eliquis 5 mg tablet 5 mg PO BID@07,19 Qty: 180 3RF Hold Instructions: Resume on 08/08/22. nitroglycerin 0.4 mg tablet, sublingual 0.4 mg sublingual Q5MIN PRN (Reason: Chest Pain) rosuvastatin 40 mg tablet 40 mg PO BEDTIME Centrum Silver 400-250 mcg Tablet,Chewable 1 tab PO DAILY levothyroxine 75 mcg tablet 75 mcg PO QAM hydrocodone-acetaminophen 5-325 mg tablet 1 tab PO Q6H PRN (Reason: pain) Qty: 14 0RF albuterol sulfate 90 mcg/actuation HFA aerosol inhaler 2 puff INHALATION Q6H PRN (Reason: Shortness Of Breath) amiodarone 200 mg tablet 200 mg PO BID Qty: 180 3RF ferrous sulfate [Feosol] 325 mg (65 mg iron) tablet 325 mg PO DAILY Qty: 90 1RF polyethylene glycol 3350 [Miralax] 17 gram/dose powder 4 g PO DAILY PRN (Reason: constipation) Qty: 119 0RF Changed bumetanide 1 mg tablet 0.5 mg PO BID Qty: 30 0RF Discontinued metolazone 2.5 mg tablet 2.5 mg PO DAILY Qty: 10 0RF potassium chloride 20 mEq tablet extended release 20 meq PO TID Qty: 60 2RF Discharge Orders: Discharge Order (Routine); Ordered 09/02/22 Ordered By: Charley Covington Other Ambulatory Orders: Basic Metabolic Panel (Q4D) Timeframe: [id number] Facility: [facility] - Location: Lab - Main Lab Ordered By: Charley Covington Basic Metabolic Panel (Q4D) Timeframe: [id number] Facility: [facility] - Location: Lab - Main Lab Ordered By: Charley Covington Basic Metabolic Panel (Q4D) Timeframe: 20220913 Facility: [facility] - Location: Lab - Main Lab Ordered By: Charley Covington Basic Metabolic Panel (Q4D) Timeframe: [id number] Facility: [facility] - Location: Lab - Main Lab Ordered By: Charley Covington Referrals: Ayaan Sen M.D [Physician] - 2 weeks (September ,at time of 08:45 am ) Gene Peralta [Primary Care Provider] - 4-7 days (appointment date :Wednesday09-07-2022 time of 2:20 pm ) Discharge Diet: Cardiac Discharge Activity: Increase activity as tolerated Patient Instructions: Spironolactone (By mouth) (Aldakarias, Jcarlosospir), Potassium Chloride (By mouth) (K-Dur, K-Sigrid, K-Tab, Ramiro Mur), Supraventricular Tachycardia (DC), Chest Pain (DC), Hypokalemia (DC), Implantable Cardioverter D efibrillator (DC), Chest Pain Stoplight, Opioid Safety Discharge Attestations Time Spent in Discharge Care*: less than 30 min Quality Metrics Clinical Quality Measures [ No reported AMI, CVA or VTE this stay] Coding Level of Care Code 94254 Total time (in minutes) for Discharge: 25 Diagnoses Hypokalemia E87.6
[2022-09-02] MEDS: potassium chloride ER 20 mEq Tablet PO (10:42)
--- NOTE | 2022-09-02 10:50 | PC.CHAP ---
Pastoral Care Encounter/Spiritual Assessment Type of Contact [] Declined senior project accountant visit [] Patient/Family/Request visit [] Outpatient visit [] Follow-up visit [] Physician referral [] Code/Alert [x] Routine visit [] Staff referral [] Actively dying [x] Patient sleeping [] Family support [] [] Out of room [] Palliative care [] [] Receiving care in room [] Pre-surgical visit [] Trauma [] Long length of stay [x] ICU visit [] Other: Relational/Emotional Strength [] Patient feels connected with others/family/visitors/staff [] Distress [] Loneliness/isolation [] Abandonment Spirituality of Patient [] Person of Shy [] Attends Zoroastrianism of their Shy [] Believes in Prayer [] Reads Bible or Zoroastrian materials [] There are Spiritual issues to be addressed Product Finisher Interventions [x] Prayer [] Active listening [] Non-anxious presence [] Spiritual/emotional support [] Crisis/trauma care [] Spiritual counseling [] Bereavement support [] Provided bereavement packet [] Provided Bible/devotional materials [] Provided toy/stuffed animal, coloring book to patient or family member [] Provided Communion [] Anointing/[place] [] Salvation [x] Completed spiritual assessment [] Other: Impact on Illness or Injury [] Angry [] Fearful [] Anxious [] Often cries [] Exhaustion [] Unable to work [] Unable to attend hinduism [] Unable to walk/stand [] Unable to read [] Unable to drive [] Unable to eat/drink [] Unable to sleep [] Unable to be with family [] Patient intubated [] Other: Summary Time spent with patient
[2022-09-02 12:48] LABS: Anion Gap 12.8 (5-19); Blood Urea Nitrogen 18 mg/dL (8-23); Calcium 9.1 mg/dL (8.5-10.5); Carbon Dioxide 26 mmol/L (22-29); Chloride 102 mmol/L (98-107); Glucose 88 mg/dL (65-115); Osmolality Calculated 285 mOsm/kg (285-295); Potassium 3.8 mmol/L (3.5-5.1); Sodium 137 mmol/L (136-145)
== END 2022-09-02 14:51 | disposition home health service (06) | DRG 309 ==
LOC: ER 02:20 → ICU 03:19
PROVIDERS: Hospitalist; Admitting Provider Internal Medicine; Emergency Provider Emergency Medicine; PCP Family Medicine; Visit Provider Internal Medicine
DX: I47.20 Ventricular tachycardia, unspecified (principal); I13.0 Hypertensive heart and chronic kidney disease with heart failure and stage 1 through stage 4 chronic kidney disease, or unspecified chronic kidney disease; I50.22 Chronic systolic (congestive) heart failure; N17.9 Acute kidney failure, unspecified; E87.6 Hypokalemia; N18.9 Chronic kidney disease, unspecified; E03.9 Hypothyroidism, unspecified; I25.10 Atherosclerotic heart disease of native coronary artery without angina pectoris; I25.5 Ischemic cardiomyopathy; D64.9 Anemia, unspecified; E78.5 Hyperlipidemia, unspecified; I48.91 Unspecified atrial fibrillation; I25.2 Old myocardial infarction; Z79.899 Other long term (current) drug therapy; Z79.01 Long term (current) use of anticoagulants; Z95.810 Presence of automatic (implantable) cardiac defibrillator
CPT/HCPCS: 12345; 36415; 71045; 80048; 80053; 82436; 83735; 83880; 84133; 84300; 84484; 85025; 85610; 85730; 93005; 96365; 96372; 96375; 99285; 99291; 99292; J0282; J1650; J2250; J3480; J7030; J7060; Q3014

== ENCOUNTER 2022-09-03 23:31 | Emergency (ER) | payer MEDICARE, OTHER, SELFPAY ==
--- NOTE | 2022-09-03 23:33 | XRR_ITS ---
PROCEDURE INFORMATION: Exam: XR Chest Exam date and time: 09/03/2022 11:41 PM Age: 86 years old Clinical indication: Pain; Chest pressure; Prior surgery; Additional info: Cp TECHNIQUE: Imaging protocol: Radiologic exam of the chest. Views: 1 view. COMPARISON: CR (CHEST, ) 08/31/2022 2:43 AM FINDINGS: Tubes, catheters and devices: Pacemaker. Lungs: Emphysematous changes. Pleural spaces: Unremarkable. No pleural effusion. No pneumothorax. Heart/Mediastinum: Cardiomegaly. Bones/joints: Spinal surgical hardware. XR/XR chest 1V portable [id number] IMPRESSION: 1. Negative for infiltrate. 2. Cardiomegaly. 3. Emphysematous changes.
[2022-09-03 23:39] VITALS: BP 159/79; PULSE 72; RESP 16; TEMP 36.9; O2SAT 96; BMI 25.8
--- NOTE | 2022-09-03 23:43 | ED_ITS ---
HPI - Chest Pain General: Chief Complaint: Chest Pain Stated Complaint: Chest Pains Time Seen by Provider: 09/03/22 23:33 Source: patient Mode of arrival: ambulatory Limitations: no limitations History of Present Illness: 86-year-old male has been seen here multiple times in the last week for his defibrillator firing. He was discharged morning he states that he has been shocked 3 times twice this morning and once this evening he states he been having some sharp chest pain across his chest he rates his pain a 5 out of 10 currently denies any shortness of breath denies any worsening proving factors. Associated symptoms: Deny abdominal pain, dyspnea, fever(s), nausea or vomiting Review of Systems Const: Denies: fever(s), chills, body aches or change in appetite Eyes: Denies: blurry vision or eye discomfort ENMT: Denies: throat pain or dental pain Card: Reports: chest pain Resp: Denies: dyspnea GI: Denies: abdominal pain, nausea, vomiting or diarrhea : Denies: dysuria Musc: Denies: neck pain or back pain Skin/Breast: Denies: rash Neuro: Denies: headache(s) Psych: Denies: depression Lyle/Lymph: Denies: easy bruising All/Imm: Denies: urticaria PFSH ED PFSH: Medical History Acute diastolic (congestive) heart failure Acute OR Acute non-ST elevation myocardial infarction (NSTEMI) Acute on chronic systolic heart failure Anemia Anemia Atherosclerosis of coronary artery of [place] heart without angina pectoris Atrial fibrillation Rate control on anticoagulation Cardiomyopathy History of ischemic cardiomyopathy, do not need revascularization, continue optimal medical regimen Chronic kidney disease Coronary artery disease Coronary artery disease Hyperlipidemia Hypertension Well-controlled Sustained VT (ventricular tachycardia) Continue current regimen including beta-ashley, amiodarone. Appear to be stable not in VT anymore. Can be discharged home. Tubular adenoma of colon Ventricular tachycardia Ventricular tachycardia Wide-complex tachycardia Surgical History History of back surgery History of cardiac defibrillator placement Stented coronary artery Family History Mother No problems noted. Father No problems noted. Other CAD (coronary artery disease) Social History Smoking and tobacco status: never smoked Alcohol intake: never Adopted: No Caregiver/support person: Yes Housing: [facility]iary Marital status: / Current occupational status: retired Physical Exam Const: COMMON NORMALS: patient oriented x3 HENMT: COMMON NORMALS: normocephalic and atraumatic HEAD & SCALP: normocephalic and atraumatic Eye: COMMON NORMALS: Equal, round and reactive pupils present and EOMs intact bilaterally PUPIL: Yes Equal, round and reactive pupils present Neck/C-Spine: COMMON NORMALS: full ROM and supple Chest: COMMONS NORMALS: normal inspection of the chest and normal palpation of entire chest wall Resp: COMMON NORMALS: normal respiratory effort, No retractions, No use of accessory muscles and clear to auscultation bilaterally AUSCULTATION: clear to auscultation bilaterally Cardio: COMMON NORMALS: regular rate, regular rhythm and No murmurs present (Cardio) RATE: regular rate RHYTHM: regular rhythm GI: COMMON NORMALS: Normal to inspection, nondistended, normoactive bowel sounds present, Soft to palpation, non-tender and no masses PALPATION: Yes Soft to palpation Extremity: COMMON NORMALS: normal to inspection and full ROM Neuro: COMMON NORMALS: patient oriented x3, moves all extremities and no focal motor deficits Psych: COMMON NORMALS: mental status grossly normal, Normal thought process present and cooperative THOUGHT PROCESS: Normal thought process present Skin: COMMON NORMALS: no rashes or lesions noted and no wounds GENERAL SKIN EXAM: no rashes or lesions noted Course Vital Signs: Vital signs: Vital Signs Temperature 98.4 F 09/03/22 23:39 Pulse Rate 51 L 09/04/22 02:06 Respiratory Rate 16 09/04/22 02:06 Blood Pressure 101/56 09/04/22 02:06 Pulse Oximetry 96 09/04/22 02:06 Oxygen Delivery Me thod 09/04/22 02:06 MDM - Chest Pain Medical Decision Making Patient presents here with chest pain his troponins here are normal we did interrogate his pacemaker here defibrillated he actually never had any discharges today. Potassium level is normal he is stable for discharge he is to follow-up with his steam tender and return if worsening. Lab Data 09/04/22 00:16 09/04/22 00:16 Radiology Impressions Chest X-Ray 09/03/22 23:33 IMPRESSION: 1. Negative for infiltrate. 2. Cardiomegaly. 3. Emphysematous changes. Laboratory Results WBC 7.2 10^3/uL (4.0-10.0) 09/04/22 00:16 RBC 4.12 10^6/uL (4.1-5.3) 09/04/22 00:16 Hgb 11.4 g/dL (11.7-16.6) L 09/04/22 00:16 Hct 37.6 % (42.0-52.0) L 09/04/22 00:16 MCV 91.3 fl (80-94) 09/04/22 00:16 MCH 27.7 pg (28.0-34.0) L 09/04/22 00:16 MCHC 30.3 g/dL (30.0-36.0) 09/04/22 00:16 RDW 22.8 % (12.1-15.1) H 09/04/22 00:16 Plt Count 285 10^3/cmm (130-400) 09/04/22 00:16 MPV 9.4 fL (7.4-10.4) 09/04/22 00:16 Neut % (Auto) 52.1 % 09/04/22 00:16 Lymph % (Auto) 31.7 % 09/04/22 00:16 [place] % (Auto) 12.6 % 09/04/22 00:16 Eos % (Auto) 2.9 % 09/04/22 00:16 Baso % (Auto) 0.4 % 09/04/22 00:16 Neut # (Auto) 3.75 10^3/uL (1.8-7.7) 09/04/22 00:16 Lymph # (Auto) 2.3 10^3/uL (0.8-4.8) 09/04/22 00:16 [place] # (Auto) 0.9 10^3/uL (0.2-0.9) 09/04/22 00:16 Eos # (Auto) 0.2 10^3/uL (0.0-0.8) 09/04/22 00:16 Baso # (Auto) 0.0 10^3/uL (0.0-0.1) 09/04/22 00:16 Nucleated RBC % (auto) 0 % 09/04/22 00:16 Nucleated RBCs # 0.0 /100WBC 09/04/22 00:16 Sodium 137 mmol/L (136-145) 09/04/22 00:16 Potassium 4.4 mmol/L (3.5-5.1) 09/04/22 00:16 Chloride 100 mmol/L (98-107) 09/04/22 00:16 Carbon Dioxide 24 mmol/L (22-29) 09/04/22 00:16 Anion Gap 17.4 (5-19) 09/04/22 00:16 BUN 19 mg/dL (8-23) 09/04/22 00:16 Creatinine 1.7 mg/dL (0.7-1.2) H 09/04/22 00:16 GFR Calculation Not Reportable 09/04/22 00:16 Glucose 104 mg/dL (65-115) 09/04/22 00:16 Calculated Osmolality 287 mOsm/kg (285-295) 09/04/22 00:16 Calcium 9.4 mg/dL (8.5-10.5) 09/04/22 00:16 Total Bilirubin 0.7 mg/dL (0.15-1.2) 09/04/22 00:16 AST 56 U/L (0-40) H 09/04/22 00:16 ALT 41 U/L (0-41) 09/04/22 00:16 Alkaline Phosphatase 122 U/L (40-130) 09/04/22 00:16 Troponin T Baseline 54 ng/L (0-15) H 09/04/22 00:16 Troponin T 120 Minute 51.33 ng/L (0-15) H 09/04/22 01:42 Delta Troponin T -2.67 ABS# (0-10) L 09/04/22 01:42 Total Protein 7.7 g/dL (6.6-8.7) 09/04/22 00:16 Albumin 3.7 g/dL (3.5-5.2) 09/04/22 00:16 Globulin 4.0 g/dL (1.3-4.6) 09/04/22 00:16 EKG Data EKG 1: I personally reviewed and interpreted this EKG as follows: EKG interpretation date: 09/03/22 EKG interpretation time: 23:45 Interpretation: nsr hr [address] or T wave abnormalities QRS 143 QTc 469 Discharge Plan Discharge Patient Disposition: Home Clinical Impression: Chest pain Condition: Stable Prescriptions: No Action acetaminophen [Tylenol Extra Strength] 500 mg tablet 500 mg PO Q6H PRN (Reason: Pain) metoprolol tartrate 25 mg tablet 12.5 mg PO BID Qty: 60 3RF Beets 1 tab PO DAILY lidocaine [Salonpas (lidocaine)] 4 % adhesive patch,medicated 1 patch topical DAILY PRN (Reason: Pain) (DME) Thumb Spica See Rx Instructions .Route .MEDSUPPLY Qty: 1 0RF Rx Instructions: As directed. clopidogrel 75 mg tablet 75 mg PO QAM Qty: 90 3RF Hold Instructions: Resume on 06/06/22. Eliquis 5 mg tablet 5 mg PO BID@07,19 Qty: 180 3RF Hold Instructions: Resume on 08/08/22. nitroglycerin 0.4 mg tablet, sublingual 0.4 mg sublingual Q5MIN PRN (Reason: Chest Pain) rosuvastatin 40 mg tablet 40 mg PO BEDTIME Centrum Silver 400-250 mcg Tablet,Chewable 1 tab PO DAILY levothyroxine 75 mcg tablet 75 mcg PO QAM hydrocodone-acetaminophen 5-325 mg tablet 1 tab PO Q6H PRN (Reason: pain) Qty: 14 0RF albuterol sulfate 90 mcg/actuation HFA aerosol inhaler 2 puff INHALATION Q6H PRN (Reason: Shortness Of Breath) amiodarone 200 mg tablet 200 mg PO BID Qty: 180 3RF ferrous sulfate [Feosol] 325 mg (65 mg iron) tablet 325 mg PO DAILY Qty: 90 1RF polyethylene glycol 3350 [Miralax] 17 gram/dose powder 4 g PO DAILY PRN (Reason: constipation) Qty: 119 0RF spironolactone 25 mg Tablet 12.5 mg PO DAILY 30 Days Qty: 15 0RF Klor-Con M20 20 mEq Tablet,Er Particles/Crystals 40 meq PO BID 30 Days Qty: 120 0RF bumetanide 1 mg tablet 0.5 mg PO BID Qty: 30 0RF Discharge Orders: Discharge ED (Routine); Ordered 09/04/22 Ordered By: Stephanie Paz Referrals: Gene Peralta [Primary Care Provider] - Discharge Diet: Advance as tolerated Discharge Activity: Resume usual activity Patient Instructions: Chest Pain (ED) Coding Level of Care Code ED Cost Accounting Analyst for Lawson Zelaya
--- NOTE | 2022-09-03 23:45 | ECG_ITS ---
[facility] Test Date: 2022-09-03 Pat Name: Jesus Saucedo Department: Room: Gender: Male Inspector Clip On Sunglasses: : 1935 Requested By: Stephanie Paz Order Number: [id number] Anders MD: Mike Gonzalez M.D. Measurements Intervals [place] Rate: 61 P: -68 VT: 197 QRS: 40 QRSD: 143 T: -66 QT: 466 QTc: 471 Interpretive Statements SINUS RHYTHM INTRAVENTRICULAR CONDUCTION DELAY [130+ ms QRS DURATION] Nonspecific ST-T changes Compared to ECG 08/31/2022 09:21:21 Intraventricular conduction delay now present Atrial fibrillation no longer present Aberrant conduction of supraventricular beat(s) no longer present Ventricular premature complex(es) no longer present Left-axis deviation no longer present T-wave abnormality no longer present Possible ischemia no longer present Electronically Signed On 09-04-2022 21:40:23 JAVA XML DEVELOPER by Mike Gonzalez M.D. [id number]
[2022-09-04 00:12] VITALS: BP 159/79; PULSE 55; RESP 16; O2SAT 99
[2022-09-04 00:30] LABS: Basophils % 0.4 %; Eosinophils # 0.2 10^3/uL (0.0-0.8); Eosinophils % 2.9 %; Hematocrit 37.6 % (42.0-52.0); Hemoglobin 11.4 g/dL (11.7-16.6); Lymphocytes # 2.3 10^3/uL (0.8-4.8); Lymphocytes % 31.7 %; Mean Corpuscular HGB Conc 30.3 g/dL (30.0-36.0); Mean Corpuscular Hemoglobin 27.7 pg (28.0-34.0); Mean Corpuscular Volume 91.3 fl (80-94); Mean Platelet Volume 9.4 fL (7.4-10.4); Monocytes # 0.9 10^3/uL (0.2-0.9); Monocytes % 12.6 %; Neutrophils # 3.75 10^3/uL (1.8-7.7); Neutrophils % 52.1 %; Nucleated Red Blood Cells % 0 %; Platelet Count 285 10^3/cmm (130-400); Red Blood Count 4.12 10^6/uL (4.1-5.3); Red Cell Distribution Width 22.8 % (12.1-15.1); White Blood Count 7.2 10^3/uL (4.0-10.0)
[2022-09-04 00:51] LABS: Alanine Aminotransferase 41 U/L (0-41); Albumin Level 3.7 g/dL (3.5-5.2); Alkaline Phosphatase 122 U/L (40-130); Anion Gap 17.4 (5-19); Aspartate Amino Transferase 56 U/L (0-40); Blood Urea Nitrogen 19 mg/dL (8-23); Calcium 9.4 mg/dL (8.5-10.5); Carbon Dioxide 24 mmol/L (22-29); Chloride 100 mmol/L (98-107); Glucose 104 mg/dL (65-115); Osmolality Calculated 287 mOsm/kg (285-295); Potassium 4.4 mmol/L (3.5-5.1); Sodium 137 mmol/L (136-145); Total Bilirubin 0.7 mg/dL (0.15-1.2); Total Protein 7.7 g/dL (6.6-8.7)
[2022-09-04 00:52] LABS: Troponin(5th) Baseline 54 ng/L (0-15)
[2022-09-04 01:00] VITALS: BP 143/62; PULSE 50; RESP 19; O2SAT 96
--- NOTE | 2022-09-04 01:35 | ECG_ITS ---
[facility] Test Date: 2022-09-04 Pat Name: Jesus Saucedo Department: Room: Gender: Male Accessories Repairer: : 1935 Requested By: Stephanie Paz Order Number: [id number] Anders MD: Mike Gonzalez M.D. Measurements Intervals [place] Rate: 57 P: 50 MT: 316 QRS: 31 QRSD: 138 T: -64 QT: 489 QTc: 479 Interpretive Statements SINUS BRADYCARDIA WITH FIRST DEGREE AV BLOCK INTRAVENTRICULAR CONDUCTION DELAY [130+ ms QRS DURATION] Nonspecific ST-T changes Compared to ECG 09/03/2022 23:45:10 First degree AV block now present Sinus rhythm no longer present Electronically Signed On 09-04-2022 21:53:50 AUTOMATION TESTER by Mike Gonzalez M.D. [id number]
[2022-09-04 02:06] VITALS: BP 101/56; PULSE 51; RESP 16; O2SAT 96
[2022-09-04 02:07] LABS: Troponin 5 2HR 51.33 ng/L (0-15)
[2022-09-04 02:21] LABS: Troponin 5 2HR Delta -2.67 ABS# (0-10)
[2022-09-04 02:45] VITALS: BP 129/60; PULSE 52; RESP 17; O2SAT 99
== END 2022-09-04 02:37 | disposition home or self-care (01) ==
PROVIDERS: Emergency Provider Emergency Medicine; PCP Family Medicine
DX: R07.9 Chest pain, unspecified (principal); Z79.01 Long term (current) use of anticoagulants; Z79.02 Long term (current) use of antithrombotics/antiplatelets; I13.0 Hypertensive heart and chronic kidney disease with heart failure and stage 1 through stage 4 chronic kidney disease, or unspecified chronic kidney disease; N18.9 Chronic kidney disease, unspecified; I50.9 Heart failure, unspecified; I25.2 Old myocardial infarction; I25.10 Atherosclerotic heart disease of native coronary artery without angina pectoris; Z95.810 Presence of automatic (implantable) cardiac defibrillator
CPT/HCPCS: 71045; 80053; 84484; 85025; 93005; 99285

== ENCOUNTER 2022-09-08 13:39 | Outpatient (CLI) | payer MEDICARE, OTHER, SELFPAY ==
[2022-09-08 14:30] LABS: Anion Gap 15.9 (5-19); Blood Urea Nitrogen 20 mg/dL (8-23); Calcium 8.9 mg/dL (8.5-10.5); Carbon Dioxide 21 mmol/L (22-29); Chloride 102 mmol/L (98-107); Glucose 92 mg/dL (65-115); Osmolality Calculated 280 mOsm/kg (285-295); Potassium 4.9 mmol/L (3.5-5.1); Sodium 134 mmol/L (136-145)
== END 2022-09-08 13:40 | disposition home or self-care (01) ==
LOC: LAB 13:44
PROVIDERS: PCP Family Medicine; Visit Provider Family Medicine
DX: E87.6 Hypokalemia (principal); Z79.899 Other long term (current) drug therapy
CPT/HCPCS: 80048

== ENCOUNTER → 2022-09-09 14:49 | Outpatient (BNVA) | payer MEDICARE, OTHER, SELFPAY | PROVIDERS: PCP Family Medicine; Visit Provider Internal Medicine Pulmonary Disease | DX: R91.8 Other nonspecific abnormal finding of lung field (principal); G47.34 Idiopathic sleep related nonobstructive alveolar hypoventilation; I48.91 Unspecified atrial fibrillation; Z95.810 Presence of automatic (implantable) cardiac defibrillator; Z79.01 Long term (current) use of anticoagulants; Z99.81 Dependence on supplemental oxygen | CPT/HCPCS: 99204 ==

== ENCOUNTER → 2022-09-14 08:37 | Outpatient (BNVA) | payer MEDICARE, OTHER, SELFPAY | PROVIDERS: PCP Family Medicine; Visit Provider Nurse Practitioner Family | DX: I25.10 Atherosclerotic heart disease of native coronary artery without angina pectoris (principal); I10 Essential (primary) hypertension; I48.91 Unspecified atrial fibrillation; Z95.810 Presence of automatic (implantable) cardiac defibrillator; Z79.01 Long term (current) use of anticoagulants | CPT/HCPCS: 99214 ==

== ENCOUNTER 2022-09-15 13:31 | Outpatient (CLI) | payer MEDICARE, OTHER, SELFPAY ==
[2022-09-15 14:05] LABS: Anion Gap 15.8 (5-19); Blood Urea Nitrogen 27 mg/dL (8-23); Calcium 9.2 mg/dL (8.5-10.5); Carbon Dioxide 22 mmol/L (22-29); Chloride 101 mmol/L (98-107); Glucose 97 mg/dL (65-115); Osmolality Calculated 283 mOsm/kg (285-295); Potassium 4.8 mmol/L (3.5-5.1); Sodium 134 mmol/L (136-145)
== END 2022-09-15 13:32 | disposition home or self-care (01) ==
LOC: LAB 13:32
PROVIDERS: PCP Family Medicine; Visit Provider Family Medicine
DX: E87.8 Other disorders of electrolyte and fluid balance, not elsewhere classified (principal)
CPT/HCPCS: 80048

== ENCOUNTER 2022-09-17 15:13 | Outpatient (CLI) | payer MEDICARE, OTHER, SELFPAY ==
[2022-09-17 16:26] LABS: Anion Gap 15.9 (5-19); Blood Urea Nitrogen 27 mg/dL (8-23); Calcium 9.3 mg/dL (8.5-10.5); Carbon Dioxide 23 mmol/L (22-29); Chloride 101 mmol/L (98-107); Glucose 96 mg/dL (65-115); Osmolality Calculated 285 mOsm/kg (285-295); Potassium 4.9 mmol/L (3.5-5.1); Sodium 135 mmol/L (136-145)
== END 2022-09-17 15:14 | disposition home or self-care (01) ==
LOC: LAB 15:15
PROVIDERS: PCP Family Medicine; Visit Provider Family Medicine
DX: E87.6 Hypokalemia (principal)
CPT/HCPCS: 80048

== ENCOUNTER 2022-09-23 15:44 | Outpatient (CLI) | payer MEDICARE, OTHER, SELFPAY ==
[2022-09-23 17:22] LABS: Anion Gap 15.3 (5-19); Blood Urea Nitrogen 26 mg/dL (8-23); Carbon Dioxide 22 mmol/L (22-29); Chloride 102 mmol/L (98-107); Glucose 123 mg/dL (65-115); Osmolality Calculated 286 mOsm/kg (285-295); Potassium 4.3 mmol/L (3.5-5.1); Sodium 135 mmol/L (136-145)
== END 2022-09-23 15:45 | disposition home or self-care (01) ==
LOC: LAB 15:47
PROVIDERS: PCP Family Medicine; Visit Provider Family Medicine
DX: Z01.89 Encounter for other specified special examinations (principal)
CPT/HCPCS: 80048

== ENCOUNTER 2022-09-29 20:43 | Emergency (ER) | payer MEDICARE, OTHER, SELFPAY ==
[2022-09-29 21:03] VITALS: BP 160/76; PULSE 68; RESP 18; TEMP 36.4; O2SAT 98; BMI 24.5
[2022-09-29 21:27] LABS: Basophils % 0.7 %; Eosinophils # 0.3 10^3/uL (0.0-0.8); Eosinophils % 4.6 %; Hematocrit 39.1 % (42.0-52.0); Hemoglobin 12.4 g/dL (11.7-16.6); Lymphocytes # 1.5 10^3/uL (0.8-4.8); Lymphocytes % 27.7 %; Mean Corpuscular HGB Conc 31.7 g/dL (30.0-36.0); Mean Corpuscular Hemoglobin 29.7 pg (28.0-34.0); Mean Corpuscular Volume 93.5 fl (80-94); Mean Platelet Volume 9.7 fL (7.4-10.4); Monocytes # 0.7 10^3/uL (0.2-0.9); Monocytes % 12.9 %; Neutrophils # 2.91 10^3/uL (1.8-7.7); Neutrophils % 53.9 %; Nucleated Red Blood Cells % 0 %; Platelet Count 224 10^3/cmm (130-400); Red Blood Count 4.18 10^6/uL (4.1-5.3); Red Cell Distribution Width 17.8 % (12.1-15.1); White Blood Count 5.4 10^3/uL (4.0-10.0)
[2022-09-29 21:38] LABS: INR 0.89 (0.8-1.2)
[2022-09-29 21:42] LABS: Alanine Aminotransferase 72 U/L (0-41); Albumin Level 3.7 g/dL (3.5-5.2); Alkaline Phosphatase 105 U/L (40-130); Anion Gap 16.6 (5-19); Aspartate Amino Transferase 67 U/L (0-40); Blood Urea Nitrogen 26 mg/dL (8-23); Calcium 9.5 mg/dL (8.5-10.5); Carbon Dioxide 24 mmol/L (22-29); Chloride 102 mmol/L (98-107); Glucose 103 mg/dL (65-115); Osmolality Calculated 291 mOsm/kg (285-295); Potassium 4.6 mmol/L (3.5-5.1); Sodium 138 mmol/L (136-145); Total Bilirubin 0.3 mg/dL (0.15-1.2); Total Protein 7.7 g/dL (6.6-8.7)
[2022-09-29 21:43] LABS: Troponin(5th) Baseline 30 ng/L (0-15)
--- NOTE | 2022-09-29 22:49 | ECG_ITS ---
[facility] Test Date: 2022-09-29 Pat Name: Jesus Saucedo Department: Room: Gender: Male Client Technical Professional: : [id number] Requested By: Stephanie Paz Order Number: [id number] Anders MD: Mike Gonzalez M.D. Measurements Intervals [place] Rate: 71 P: 255 [place]: 239 QRS: 42 QRSD: 153 T: -48 QT: 468 QTc: 511 Interpretive Statements SINUS RHYTHM WITH FIRST DEGREE AV BLOCK LEFT BUNDLE BRANCH BLOCK [120+ ms QRS DURATION, 80+ ms Q/S IN V1/V2, 85+ ms R IN I/aVL/V5/V6] Compared to ECG 09/04/2022 01:35:19 Left bundle-branch block now present Sinus bradycardia no longer present Intraventricular conduction delay no longer present ST (T wave) deviation no longer present Electronically Signed On 09-30-2022 0:57:44 CDT by Mike Gonzalez M.D. [id number]
[2022-09-29 23:41] VITALS: BP 166/79; PULSE 77; RESP 18; O2SAT 97
[2022-09-29 23:51] LABS: Add Urine Microscopic? NO; Charge for UA Resulting for Rev
--- NOTE | 2022-09-29 23:51 | ED_ITS ---
HPI - Weakness General: Chief complaint: Weakness Stated complaint: head/face numb, shakey, weak Time Seen by Provider: 09/29/22 22:29 Source: patient Mode of arrival: ambulatory Limitations: no limitations History of Present Illness: 86-year-old male who states he has had tremors in the past he states that they start having severe tremors around 4 states they lasted 4 to 5 hours states they were so severe he does have a hard time ambulating states he now feels completely normal he no longer has a tremor he is able to ambulate he denies any worsening improving factors. Denies any headache or chest pain. Associated symptoms: Denies chest pain, chills, dysuria, easy bruising, fever(s), headache(s), nausea or vomiting Review of Systems Const: Denies: fever(s), chills, body aches or change in appetite Eyes: Denies: blurry vision or eye discomfort ENMT: Denies: throat pain or dental pain Card: Denies: chest pain Resp: Denies: dyspnea GI: Denies: abdominal pain, nausea, vomiting or diarrhea : Denies: dysuria Musc: Denies: neck pain or back pain Skin/Breast: Denies: rash Neuro: Denies: headache(s) Psych: Denies: depression Lyle/Lymph: Denies: easy bruising All/Imm: Denies: urticaria PFSH ED PFSH: Medical History Acute diastolic (congestive) heart failure Acute [place] Acute non-ST elevation myocardial infarction (NSTEMI) Acute on chronic systolic heart failure Anemia Anemia Atherosclerosis of coronary artery of [place] heart without angina pectoris Atrial fibrillation Rate control on anticoagulation Cardiomyopathy History of ischemic cardiomyopathy, do not need revascularization, continue optimal medical regimen Chronic kidney disease Coronary artery disease Coronary artery disease Hyperlipidemia Hypertension Well-controlled Sustained VT (ventricular tachycardia) Continue current regimen including beta-ashley, amiodarone. Appear to be stable not in VT anymore. Can be discharged home. Tubular adenoma of colon Ventricular tachycardia Ventricular tachycardia Wide-complex tachycardia Surgical History History of back surgery History of cardiac defibrillator placement Stented coronary artery Family History Mother No problems noted. Father No problems noted. Other CAD (coronary artery disease) Social History Smoking and tobacco status: never smoked Alcohol intake: never Adopted: No Caregiver/support person: Yes Housing: [facility] Marital status: / Current occupational status: retired Physical Exam Const: COMMON NORMALS: no acute distress, patient oriented x3 and healthy appearing HENMT: COMMON NORMALS: normocephalic and atraumatic HEAD & SCALP: normocephalic and atraumatic Eye: COMMON NORMALS: Equal, round and reactive pupils present and EOMs intact bilaterally PUPIL: Yes Equal, round and reactive pupils present Neck/C-Spine: COMMON NORMALS: full ROM and supple Chest: COMMONS NORMALS: normal inspection of the chest and normal palpation of entire chest wall Resp: COMMON NORMALS: normal respiratory effort, No retractions, No use of accessory muscles and clear to auscultation bilaterally AUSCULTATION: clear to auscultation bilaterally Cardio: COMMON NORMALS: regular rate, regular rhythm and No murmurs present (Cardio) RATE: regular rate RHYTHM: regular rhythm GI: COMMON NORMALS: Normal to inspection, nondistended, normoactive bowel sounds present, Soft to palpation, non-tender and no masses PALPATION: Yes Soft to palpation Extremity: COMMON NORMALS: normal to inspection and full ROM Neuro: COMMON NORMALS: patient oriented x3, moves all extremities and no focal motor deficits Psych: COMMON NORMALS: mental status grossly normal, Normal thought process present and cooperative THOUGHT PROCESS: Normal thought process present Skin: COMMON NORMALS: no rashes or lesions noted and no wounds GENERAL SKIN EXAM: no rashes or lesions noted Course Vital Signs: Vital signs: Vital Signs Temperature 97.5 F L 09/29/22 21:03 Pulse Rate 77 09/29/22 23:41 Respiratory Rate 18 09/29/22 23:41 Blood Pressure 166/79 09/29/22 23:41 Pulse Oximetry 97 09/29/22 23:41 Oxygen Delivery Me thod 09/29/22 23:41 MDM - Weakness Medical Decision Making Patient presents here with tremor that is since resolved he is well-appearing here blood works all normal he stable for discharge he is to follow-up with PCP and return if worsening. Lab Data 09/29/22 21:19 09/29/22 21:19 Laboratory Results WBC 5.4 10^3/uL (4.0-10.0) 09/29/22 21:19 RBC 4.18 10^6/uL (4.1-5.3) 09/29/22 21:19 Hgb 12.4 g/dL (11.7-16.6) 09/29/22 21:19 Hct 39.1 % (42.0-52.0) L 09/29/22 21:19 MCV 93.5 fl (80-94) 09/29/22 21:19 MCH 29.7 pg (28.0-34.0) 09/29/22 21:19 MCHC 31.7 g/dL (30.0-36.0) 09/29/22 21:19 RDW 17.8 % (12.1-15.1) H 09/29/22 21:19 Plt Count 224 10^3/cmm (130-400) 09/29/22 21:19 MPV 9.7 fL (7.4-10.4) 09/29/22 21:19 Neut % (Auto) 53.9 % 09/29/22 21:19 Lymph % (Auto) 27.7 % 09/29/22 21:19 [place] % (Auto) 12.9 % 09/29/22 21:19 Eos % (Auto) 4.6 % 09/29/22 21:19 Baso % (Auto) 0.7 % 09/29/22 21:19 Neut # (Auto) 2.91 10^3/uL (1.8-7.7) 09/29/22 21:19 Lymph # (Auto) 1.5 10^3/uL (0.8-4.8) 09/29/22 21:19 [place] # (Auto) 0.7 10^3/uL (0.2-0.9) 09/29/22 21:19 Eos # (Auto) 0.3 10^3/uL (0.0-0.8) 09/29/22 21:19 Baso # (Auto) 0.0 10^3/uL (0.0-0.1) 09/29/22 21:19 Nucleated RBC % (auto) 0 % 09/29/22 21:19 Nucleated RBCs # 0.0 /100WBC 09/29/22 21:19 PT 12.30 SECONDS (12.1-14.9) 09/29/22 21:19 INR 0.89 (0.8-1.2) 09/29/22 21:19 Sodium 138 mmol/L (136-145) 09/29/22 21:19 Potassium 4.6 mmol/L (3.5-5.1) 09/29/22 21:19 Chloride 102 mmol/L (98-107) 09/29/22 21:19 Carbon Dioxide 24 mmol/L (22-29) 09/29/22 21:19 Anion Gap 16.6 (5-19) 09/29/22 21:19 BUN 26 mg/dL (8-23) H 09/29/22 21:19 Creatinine 2.1 mg/dL (0.7-1.2) H 09/29/22 21:19 GFR Calculation Not Reportable 09/29/22 21:19 Glucose 103 mg/dL (65-115) 09/29/22 21:19 Calculated Osmolality 291 mOsm/kg (285-295) 09/29/22 21:19 Calcium 9.5 mg/dL (8.5-10.5) 09/29/22 21:19 Total Bilirubin 0.3 mg/dL (0.15-1.2) 09/29/22 21:19 AST 67 U/L (0-40) H 09/29/22 21:19 ALT 72 U/L (0-41) H 09/29/22 21:19 Alkaline Phosphatase 105 U/L (40-130) 09/29/22 21:19 Troponin T Baseline 30 ng/L (0-15) H 09/29/22 21:19 Troponin T 120 Minute 31.50 ng/L (0-15) H 09/29/22 23:50 Delta Troponin T 1.50 ABS# (0-10) 09/29/22 23:50 Total Protein 7.7 g/dL (6.6-8.7) 09/29/22 21:19 Albumin 3.7 g/dL (3.5-5.2) 09/29/22 21:19 Globulin 4.0 g/dL (1.3-4.6) 09/29/22 21:19 Urine Color Yellow (Yellow) 09/29/22 21:46 Urine Appearance Clear (CLEAR) 09/29/22 21:46 Urine pH 5 (5-7) 09/29/22 21:46 Ur Specific [place] 1.015 (1.005-1.030) 09/29/22 21:46 Urine Protein Neg (Negative) 09/29/22 21:46 Urine Glucose (UA) Norm (Normal) 09/29/22 21:46 Urine Ketones Negative (Negative) 09/29/22 21:46 Urine Blood Neg (Negative) 09/29/22 21:46 Urine Nitrate Negative (Negative) 09/29/22 21:46 Urine Bilirubin Neg (Negative) 09/29/22 21:46 Urine Urobilinogen Norm mg/dL (Negative) 09/29/22 21:46 Ur Leukocyte Esterase Negative (Negative) 09/29/22 21:46 EKG Data EKG 1: I personally reviewed and interpreted this EKG as follows: EKG interpretation date: 09/29/22 EKG interpretation time: 23:32 Interpretation: nsr hr [address] or t wave abnormalities qrs 153 qtc 491 Discharge Plan Discharge Patient Disposition: Home Clinical Impression: Tremor Condition: Stable Prescriptions: No Action acetaminophen [Tylenol Extra Strength] 500 mg tablet 500 mg PO Q6H PRN (Reason: Pain) metoprolol tartrate 25 mg tablet 12.5 mg PO BID Qty: 60 3RF lidocaine [Salonpas (lidocaine)] 4 % adhesive patch,medicated 1 patch topical DAILY PRN (Reason: Pain) clopidogrel 75 mg tablet 75 mg PO QAM Qty: 90 3RF Hold Instructions: Resume on 06/06/22. nitroglycerin 0.4 mg tablet, sublingual 0.4 mg sublingual Q5MIN PRN (Reason: Chest Pain) rosuvastatin 40 mg tablet 40 mg PO BEDTIME Centrum Silver 400-250 mcg Tablet,Chewable 1 tab PO DAILY levothyroxine 75 mcg tablet 75 mcg PO QAM hydrocodone-acetaminophen 5-325 mg tablet 1 tab PO Q6H PRN (Reason: pain) Qty: 14 0RF albuterol sulfate 90 mcg/actuation HFA aerosol inhaler 2 puff INHALATION Q6H PRN (Reason: Shortness Of Breath) amiodarone 200 mg tablet 200 mg PO BID Qty: 180 3RF ferrous sulfate [Feosol] 325 mg (65 mg iron) tablet 325 mg PO DAILY Qty: 90 1RF polyethylene glycol 3350 [Miralax] 17 gram/dose powder 4 g PO DAILY PRN (Reason: constipation) Qty: 119 0RF spironolactone 25 mg Tablet 12.5 mg PO DAILY 30 Days Qty: 15 0RF Klor-Con M20 20 mEq Tablet,Er Particles/Crystals 40 meq PO BID 30 Days Qty: 120 0RF bumetanide 1 mg tablet 0.5 mg PO BID Qty: 30 0RF Discharge Orders: Discharge ED (Routine); Ordered 09/30/22 Ordered By: Stephanie Paz Referrals: Gene Peralta [Primary Care Provider] - Discharge Diet: Advance as tolerated Discharge Activity: Resume usual activity Patient Instructions: Tremors (ED) Coding Level of Care Code ED Spanish Interpreter/Translator for Lawson Zelaya
[2022-09-29 23:54] LABS: Bilirubin Urine Neg (Negative); Blood Urine Neg (Negative); Glucose Urine UA Norm (Normal); Ketones Urine Negative (Negative); Leukocyte Esterase Urine Negative (Negative); Nitrate Urine Negative (Negative); Protein Urine Neg (Negative); Specific Gravity, Urine 1.015 (1.005-1.030); Urine Appearance Clear (CLEAR); Urine Color Yellow (Yellow); Urobilinogen Urine Norm (Negative); pH Urine 5 (5-7)
[2022-09-30 00:43] VITALS: BP 133/82; O2SAT 96
== END 2022-09-30 00:45 | disposition home or self-care (01) ==
PROVIDERS: Emergency Provider Emergency Medicine; PCP Family Medicine
DX: R25.1 Tremor, unspecified (principal); Z79.02 Long term (current) use of antithrombotics/antiplatelets; I13.0 Hypertensive heart and chronic kidney disease with heart failure and stage 1 through stage 4 chronic kidney disease, or unspecified chronic kidney disease; N18.9 Chronic kidney disease, unspecified; I50.9 Heart failure, unspecified; I25.2 Old myocardial infarction; I25.10 Atherosclerotic heart disease of native coronary artery without angina pectoris; E78.5 Hyperlipidemia, unspecified; Z95.810 Presence of automatic (implantable) cardiac defibrillator
CPT/HCPCS: 36415; 80053; 81003; 84484; 85025; 85610; 93005; 99285

== ENCOUNTER 2022-10-01 10:07 | Outpatient (CLI) | payer MEDICARE, OTHER, SELFPAY ==
--- NOTE | 2022-10-01 10:30 | CT_ITS ---
WS: [id number] CT chest wo con [id number] HISTORY: check for nodules seen on chest x-ray 07/06/2022 TECHNIQUE: Axial imaging performed through the thorax. Coronal and sagittal reformats are submitted. All CT scans at [facility] use at least one of these dose optimization techniques: automated exposure control; mA and/or kV adjustment per patient size (includes targeted exams where dose is mat ched to clinical indication); or iterative reconstruction. CONTRAST: None DLP: 337.02 mGy.cm COMPARISON: 07/06/2022 and 09/03/2022 radiographs. Lungs and central airway: Mild pulmonary hyperexpansion. No mass, pulmonary nodule or pneumonia. Pleura: Normal. No pleural effusion. Heart and pericardium: Marked hepatomegaly with extensive coronary artery calcifications. No pericard ial effusion. Single lead defibrillator is noted. Mediastinum and nehemias: No mediastinum or hilar adenopathy. Vessels: Mild atherosclerosis aorta. Pulmonary artery is top normal size. Chest wall and lower neck: Single lead LEFT subclavian defibrillator with generator over the LEFT upp er thorax. Upper abdomen: Small hiatal hernia. No adrenal mass. Atrophy upper pole of each kidneys. Exophytic cy st measures 10 mm from the posterior upper pole LEFT kidney which is unchanged since 02/21/2022. Very slight prominence of the biliary ducts. Common bile duct is normal. Osseous structures: Extensive posterior fusion hardware throughout the thoracic and upper lumbar spin e. Increase in thoracic kyphosis. CT/CT chest wo con [id number] IMPRESSION: 1. No pulmonary mass or nodule. No pneumonia. 2. Chronic emphysema. 3. Marked cardiomegaly. 4. LEFT renal cyst.
== END 2022-10-01 10:08 | disposition home or self-care (01) ==
PROVIDERS: PCP Family Medicine; Visit Provider Internal Medicine Pulmonary Disease
DX: R91.1 Solitary pulmonary nodule (principal); J43.9 Emphysema, unspecified; I51.7 Cardiomegaly; N28.1 Cyst of kidney, acquired
CPT/HCPCS: 71250

== ENCOUNTER 2022-10-28 19:16 | Inpatient (IN) | payer MEDICARE, OTHER, SELFPAY ==
[2022-10-28] VITALS (45 sets, daily range): BP systolic 114–182; BP diastolic 51–101; PULSE 55–167; RESP 0–24; TEMP 36.1; O2SAT 93–100; BMI 25.1; BMI 23.6
--- NOTE | 2022-10-28 19:21 | XRR_ITS ---
PROCEDURE INFORMATION: Exam: XR Chest Exam date and time: 10/28/2022 7:44 PM Age: 86 years old Clinical indication: Pain; Chest pressure; Prior surgery; Surgery type: Pacemaker; Additional info: Cp TECHNIQUE: Imaging protocol: Radiologic exam of the chest. Views: 1 view. COMPARISON: CT chest con [id number] 10/01/2022 10:37 AM FINDINGS: Tubes, catheters and devices: External pacer pads overlie the heart. Left chest defibrillator with a single lead over the heart. Lungs: The lungs are clear. Pleural spaces: Unremarkable. No pleural effusion. No pneumothorax. Heart/Mediastinum: Unremarkable. No cardiomegaly. Bones/joints: Extensive chronic thoracic metallic fixation. XR/XR chest 1V portable [id number] IMPRESSION: Lungs clear
--- NOTE | 2022-10-28 19:25 | ECG_ITS ---
[facility] Test Date: 2022-10-28 Pat Name: Jesus Saucedo Department: Room: Gender: Male Photoresist Contact Printer: : [id number] Requested By: Stephanie Paz Order Number: [id number] Anders MD: Ayaan Sen M.D. Measurements Intervals [place] Rate: 98 P: 0 [place]: 0 QRS: 261 QRSD: 211 T: 42 QT: 353 QTc: 451 Interpretive Statements ATRIAL FIBRILLATION RIGHT AXIS DEVIATION [QRS AXIS > 100] RIGHT BUNDLE BRANCH BLOCK [120+ ms QRS DURATION, UPRIGHT V1, 40+ ms S IN I/aVL/V4/V5/V6] ST DEPRESSION, CONSIDER SUBENDOCARDIAL INJURY [0.1+ mV ST DEPRESSION] Compared to ECG 09/29/2022 23:32:40 Right-axis deviation now present Right bundle-branch block now present ST (T wave) deviation now present Sinus rhythm no longer present First degree AV block no longer present Left bundle-branch block no longer present Electronically Signed On 10-29-2022 0:16:14 CDT by Ayaan Sen M.D. [email or web address]/[id number]
[2022-10-28] MEDS: amiodarone 50 mg/mL SDV 3 mL 150 MG IVP (19:35)
--- NOTE | 2022-10-28 19:48 | W.ED.SYNCOPE ---
HPI - Syncope General: Chief Complaint: Syncope Stated Complaint: SOB/CP Time Seen by Provider: 10/28/22 19:18 Source: patient and EMS Mode of arrival: EMS Limitations: no limitations History of Present Illness: 86-year-old male states he had a syncopal event today. I was patient well he has been seen here multiple times of taking care multiple times he gets electrolyte disturbances then he has had multiple episodes of V. tach in the past when he comes in for syncope he did have a run of V. tach. His AICD fired. He denies any pain he did have a fall earlier and hit his head he has an abrasion to his head. Associated symptoms: Deny abdominal pain, fever(s), headache(s) or nausea Review of Systems Const: Denies: fever(s), chills, body aches or change in appetite Eyes: Denies: blurry vision or eye discomfort ENMT: Denies: throat pain or dental pain Card: Reports: syncope Resp: Denies: dyspnea GI: Denies: abdominal pain, nausea, vomiting or diarrhea : Denies: dysuria Musc: Denies: neck pain or back pain Skin/Breast: Denies: rash Neuro: Denies: headache(s) PFSH ED PFSH: Medical History Acute diastolic (congestive) heart failure Acute [place] Acute non-ST elevation myocardial infarction (NSTEMI) Acute on chronic systolic heart failure Anemia Anemia Atherosclerosis of coronary artery of [place] heart without angina pectoris Atrial fibrillation Rate control on anticoagulation Cardiomyopathy History of ischemic cardiomyopathy, do not need revascularization, continue optimal medical regimen Chronic kidney disease Coronary artery disease Coronary artery disease Hyperlipidemia Hypertension Well-controlled Sustained VT (ventricular tachycardia) Continue current regimen including beta-ashley, amiodarone. Appear to be stable not in VT anymore. Can be discharged home. Tubular adenoma of colon Ventricular tachycardia Ventricular tachycardia Wide-complex tachycardia Surgical History History of back surgery History of cardiac defibrillator placement Stented coronary artery Family History Mother No problems noted. Father No problems noted. Other CAD (coronary artery disease) Social History Smoking and tobacco status: never smoked Alcohol intake: never Substance/Drug Use: never Adopted: No Caregiver/support person: Yes Housing: Snf Marital status: / Current occupational status: retired Physical Exam Const: COMMON NORMALS: patient oriented x3 GENERAL APPEARANCE: ill appearing HENMT: COMMON NORMALS: normocephalic and atraumatic HEAD & SCALP: normocephalic and atraumatic Eye: COMMON NORMALS: Equal, round and reactive pupils present and EOMs intact bilaterally PUPIL: Yes Equal, round and reactive pupils present Neck/C-Spine: COMMON NORMALS: full ROM and supple Chest: COMMONS NORMALS: normal inspection of the chest and normal palpation of entire chest wall Resp: COMMON NORMALS: normal respiratory effort, No retractions, No use of accessory muscles and clear to auscultation bilaterally AUSCULTATION: clear to auscultation bilaterally Cardio: COMMON NORMALS: regular rate, regular rhythm and No murmurs present (Cardio) RATE: regular rate RHYTHM: regular rhythm GI: COMMON NORMALS: Normal to inspection, nondistended, normoactive bowel sounds present, Soft to palpation, non-tender and no masses PALPATION: Yes Soft to palpation Extremity: COMMON NORMALS: normal to inspection and full ROM Neuro: COMMON NORMALS: patient oriented x3, moves all extremities and no focal motor deficits Psych: COMMON NORMALS: mental status grossly normal, Normal thought process present and cooperative THOUGHT PROCESS: Normal thought process present Skin: COMMON NORMALS: no rashes or lesions noted and no wounds GENERAL SKIN EXAM: no rashes or lesions noted Course Vital Signs: Vital signs: Vital Signs Temperature 97 F L 10/28/22 19:18 Pulse Rate 167 H 10/28/22 20:00 Respiratory Rate 19 H 10/28/22 19:27 Blood Pressure 167/73 10/28/22 20:00 Pulse Oximetry 100 10/28/22 20:00 Oxygen Delivery Me thod Room Air 10/28/22 19:18 MDM - Syncope Medical Decision Making Patient presents here with multiple episodes of V. tach with getting shocked with his defibrillator have seen him here for the same he is hypokalemic here and that is caused his runs of V. tach in the past he typically improved with potassium replacement he is on amiodarone drip currently with no more runs of V. tach we will replace his potassium spoke to the hospitalist will admit to the ICU. Lab Data 10/28/22 19:09 10/28/22 19:09 Radiology Impressions Chest X-Ray 10/28/22 19:21 IMPRESSION: Lungs clear Laboratory Results WBC 8.1 10^3/uL (4.0-10.0) 10/28/22 19:09 RBC 3.92 10^6/uL (4.1-5.3) L 10/28/22 19:09 Hgb 11.8 g/dL (11.7-16.6) 10/28/22 19:09 Hct 36.9 % (42.0-52.0) L 10/28/22 19:09 MCV 94.1 fl (80-94) H 10/28/22 19:09 MCH 30.1 pg (28.0-34.0) 10/28/22 19:09 MCHC 32.0 g/dL (30.0-36.0) 10/28/22 19:09 RDW 15.3 % (12.1-15.1) H 10/28/22 19:09 Plt Count 214 10^3/cmm (130-400) 10/28/22 19:09 MPV 9.4 fL (7.4-10.4) 10/28/22 19:09 Neut % (Auto) 39.0 % 10/28/22 19:09 Lymph % (Auto) 44.9 % 10/28/22 19:09 [place] % (Auto) 13.6 % 10/28/22 19:09 Eos % (Auto) 1.7 % 10/28/22 19:09 Baso % (Auto) 0.6 % 10/28/22 19:09 Neut # (Auto) 3.13 10^3/uL (1.8-7.7) 10/28/22 19:09 Lymph # (Auto) 3.6 10^3/uL (0.8-4.8) 10/28/22 19:09 [place] # (Auto) 1.1 10^3/uL (0.2-0.9) H 10/28/22 19:09 Eos # (Auto) 0.1 10^3/uL (0.0-0.8) 10/28/22 19:09 Baso # (Auto) 0.1 10^3/uL (0.0-0.1) 10/28/22 19:09 Nucleated RBC % (auto) 0 % 10/28/22 19:09 Nucleated RBCs # 0.0 /100WBC 10/28/22 19:09 PT 13.10 SECONDS (12.1-14.9) 10/28/22 19:09 INR 0.96 (0.8-1.2) 10/28/22 19:09 Sodium 139 mmol/L (136-145) 10/28/22 19:09 Potassium 2.5 mmol/L (3.5-5.1) L* 10/28/22 19:09 Chloride 95 mmol/L (98-107) L 10/28/22 19:09 Carbon Dioxide 27 mmol/L (22-29) 10/28/22 19:09 Anion Gap 19.5 (5-19) H 10/28/22 19:09 BUN 49 mg/dL (8-23) H 10/28/22 19:09 Creatinine 2.5 mg/dL (0.7-1.2) H 10/28/22 19:09 GFR Calculation Not Reportable 10/28/22 19:09 Glucose 122 mg/dL (65-115) H 10/28/22 19:09 Calculated Osmolality 302 mOsm/kg (285-295) H 10/28/22 19:09 Calcium 9.2 mg/dL (8.5-10.5) 10/28/22 19:09 Magnesium 2.3 mg/dL (1.7-2.3) 10/28/22 19:09 Total Bilirubin 0.4 mg/dL (0.15-1.2) 10/28/22 19:09 AST 193 U/L (0-40) H 10/28/22 19:09 ALT 185 U/L (0-41) H 10/28/22 19:09 Alkaline Phosphatase 102 U/L (40-130) 10/28/22 19:09 Troponin T Baseline 62 ng/L (0-15) H 10/28/22 19:09 Total Protein 7.5 g/dL (6.6-8.7) 10/28/22 19:09 Albumin 3.9 g/dL (3.5-5.2) 10/28/22 19:09 Globulin 3.6 g/dL (1.3-4.6) 10/28/22 19:09 Critical Care Time Critical Care Time: Critical Care Time: Yes Total Critical Care Time: 40 Attestation: The high probability of a clinically significant, sudden or life threatening deterioration of the patient's cv system(s) required my full and direct attention, intervention and personal management. The critical care time is as shown. This time is in addition to time spent performing any reported procedures but includes the following: [x] Data and vital sign review and interpretation [x] Patient assessment, examination and intervention [x] Documentation [x] Medication orders and management Discharge Plan Discharge Patient Disposition: Admitted As Inpatient Clinical Impression: Hypokalemia, V-tach Condition: Stable Coding Level of Care Code ED Cat Scan Technologist for Lawson Zelaya
--- NOTE | 2022-10-28 19:52 | CTR_ITS ---
PROCEDURE INFORMATION: Exam: CT Head Without Contrast Exam date and time: 10/28/2022 8:32 PM Age: 86 years old Clinical indication: Injury or trauma; Blunt trauma (contusions or hematomas); Patient HX: Unwitnessed fall. Patient states he struck his head with loc. On anticoagulants. TECHNIQUE: Imaging protocol: Computed tomography of the head without contrast. Radiation optimization: All CT scans at this facility use at least one of these dose optimization techniques: automated exposure control; mA and/or kV adjustment per patient size (includes targeted exams where dose is matched to clinical indication); or iterative reconstruction. REPORTING DATA: Count of CT and Cardiac NM exams in prior 12 months: This patient has received 7 known CTs and 0 known cardiac nuclear medicine studies in the 12 months prior to the current study. COMPARISON: CT head wo con* [id number] 04/03/2022 11:48 AM RADIATION DOSE METRICS: Total DLP (mGy-cm): 843.82 FINDINGS: Brain: See Paranasal sinuses finding. Cerebral ventricles: No ventriculomegaly. Paranasal sinuses: Small fluid layers in the sphenoid sinus. Next and no CT evidence for acute ischemia, mass or hemorrhage. Mild sulcal widening is an age related change. Mastoid air cells: Visualized mastoid air cells are well aerated. Bones/joints: Unremarkable. No acute fracture. Soft tissues: Mild left frontal scalp swelling. CT/CT head wo con* [id number] IMPRESSION: No acute findings Mild left frontal scalp swelling
[2022-10-28 20:00] LABS: Basophils # 0.1 10^3/uL (0.0-0.1); Basophils % 0.6 %; Eosinophils # 0.1 10^3/uL (0.0-0.8); Eosinophils % 1.7 %; Hematocrit 36.9 % (42.0-52.0); Hemoglobin 11.8 g/dL (11.7-16.6); Lymphocytes # 3.6 10^3/uL (0.8-4.8); Lymphocytes % 44.9 %; Mean Corpuscular Hemoglobin 30.1 pg (28.0-34.0); Mean Corpuscular Volume 94.1 fl (80-94); Mean Platelet Volume 9.4 fL (7.4-10.4); Monocytes # 1.1 10^3/uL (0.2-0.9); Monocytes % 13.6 %; Neutrophils # 3.13 10^3/uL (1.8-7.7); Nucleated Red Blood Cells % 0 %; Platelet Count 214 10^3/cmm (130-400); Red Blood Count 3.92 10^6/uL (4.1-5.3); Red Cell Distribution Width 15.3 % (12.1-15.1); White Blood Count 8.1 10^3/uL (4.0-10.0)
[2022-10-28 20:18] LABS: Troponin(5th) Baseline 62 ng/L (0-15)
[2022-10-28 20:20] LABS: Alanine Aminotransferase 185 U/L (0-41); Albumin Level 3.9 g/dL (3.5-5.2); Alkaline Phosphatase 102 U/L (40-130); Anion Gap 19.5 (5-19); Aspartate Amino Transferase 193 U/L (0-40); Blood Urea Nitrogen 49 mg/dL (8-23); Calcium 9.2 mg/dL (8.5-10.5); Carbon Dioxide 27 mmol/L (22-29); Chloride 95 mmol/L (98-107); Globulin 3.6 g/dL (1.3-4.6); Glucose 122 mg/dL (65-115); Magnesium 2.3 mg/dL (1.7-2.3); Osmolality Calculated 302 mOsm/kg (285-295); Sodium 139 mmol/L (136-145); Total Bilirubin 0.4 mg/dL (0.15-1.2); Total Protein 7.5 g/dL (6.6-8.7)
[2022-10-28 20:21] LABS: Creatinine Clr Calc Pharmacy 24.2165
[2022-10-28 20:22] LABS: Potassium 2.5 mmol/L (3.5-5.1)
[2022-10-28 20:28] LABS: INR 0.96 (0.8-1.2)
[2022-10-28] MEDS: potassium chloride ER 20 mEq Tablet 60 MEQ PO (20:42)
[2022-10-28] MEDS: lidocaine 1% 5 ML in potassium chloride premix 100 ML 26.25 ML IV (20:45)
[2022-10-28 21:33] LABS: Troponin 5 2HR 63.55 ng/L (0-15)
[2022-10-28 21:34] LABS: Troponin 5 2HR Delta 1.55 ABS# (0-10)
--- NOTE | 2022-10-28 21:41 | PM.HP ---
Providers/Chief Complaint Admitting Physician: Charley Covington MD Primary Care Provider: Gene Peralta Chief Complaint: SOB/CP History of Present Illness Jesus Saucedo is a 86 year old male with past medical history of hypertension, hypothyroidism, coronary artery disease, ischemic cardiomyopathy, heart failure with preserved ejection fraction, history of VT AICD in place, chronic anemia, atrial fibrillation, on Eliquis, came in today with chief complaint of defibrillator went off and shocked him. Subsequent lab work revealed hypokalemia, patient was started on amnio drip, pacemaker interrogation showed AICD firing x4. Denies diarrhea. States he is very compliant to his meds Patient denies any chest pain, shortness of breath, nausea vomiting palpitation fever cough. Medications/Allergies Home Medications Medication Instructions Recorded Confirmed Last Taken Type nitroglycerin 0.4 mg sublingual 0.4 mg sublingual Q5MIN PRN Chest 04/12/21 10/28/22 Unknown History tablet Pain rosuvastatin 40 mg tablet 40 mg PO BEDTIME 04/12/21 10/28/22 10/27/22 21:00 History multivit with min-folic 1 tab PO DAILY 04/25/21 10/28/22 10/28/22 08:00 History acid-lutein 400 mcg-250 mcg chewable tablet (Centrum Silver) acetaminophen 500 mg tablet 500 mg PO Q6H PRN Pain 05/21/21 10/28/22 10/27/22 History (Tylenol Extra Strength) levothyroxine 75 mcg tablet 75 mcg PO QAM 03/02/22 10/28/22 10/28/22 History 0700 albuterol sulfate 90 mcg/actuation 2 puff inhalation Q6H PRN 03/04/22 10/28/22 10/25/22 History aerosol inhaler Shortness Of Breath metoprolol tartrate 25 mg tablet 12.5 mg PO BID #60 tabs 03/25/22 10/28/22 10/28/22 Rx 0800 lidocaine 4 % topical patch 1 patch topical DAILY PRN Pain 04/13/22 10/28/22 Unknown History (Salonpas (lidocaine)) clopidogrel 75 mg tablet 75 mg PO QAM #90 tabs 05/11/22 10/28/22 10/28/22 08:00 Rx hydrocodone 5 mg-acetaminophen 325 1 tab PO Q6H PRN pain #14 tabs 07/06/22 10/28/22 10/13/22 Rx mg tablet amiodarone 200 mg tablet 200 mg PO BID #180 tabs 07/11/22 10/28/22 10/28/22 08:00 Rx ferrous sulfate 325 mg (65 mg 325 mg PO DAILY #90 tabs 07/11/22 10/28/22 10/28/22 Rx iron) tablet (Feosol) 0800 polyethylene glycol 3350 17 4 g PO DAILY PRN constipation #119 07/11/22 10/28/22 Unknown Rx gram/dose oral powder (Miralax) grams bumetanide 1 mg tablet 0.5 mg PO BID #30 tabs 09/02/22 10/28/22 10/28/22 08:00 Rx melatonin 5 mg disintegrating 5 mg PO BEDTIME 10/28/22 10/28/22 10/27/22 21:00 History tablet potassium 75 mg tablet 75 mg PO BID 10/28/22 10/28/22 10/28/22 History Allergies Allergy/AdvReac Type Severity Reaction Status Date / Time JACKIE Inhibitors Allergy Unknown Unknown Verified 10/28/22 19:27 Latex, Natural Rubber Allergy Unknown ALGY-Rash Verified 10/28/22 19:27 aspirin Allergy ALGY-Hives Verified 10/28/22 19:27 PFSH Acute PFSH: Medical History Acute diastolic (congestive) heart failure Acute [place] Acute non-ST elevation myocardial infarction (NSTEMI) Acute on chronic systolic heart failure Anemia Anemia Atherosclerosis of coronary artery of [place] heart without angina pectoris Atrial fibrillation Rate control on anticoagulation Cardiomyopathy History of ischemic cardiomyopathy, do not need revascularization, continue optimal medical regimen Chronic kidney disease Coronary artery disease Coronary artery disease Hyperlipidemia Hypertension Well-controlled Sustained VT (ventricular tachycardia) Continue current regimen including beta-ashley, amiodarone. Appear to be stable not in VT anymore. Can be discharged home. Tubular adenoma of colon Ventricular tachycardia Ventricular tachycardia Wide-complex tachycardia Surgical History History of back surgery History of cardiac defibrillator placement Stented coronary artery Family History Mother No problems noted. Father No problems noted. Other CAD (coronary artery disease) Social History Smoking and tobacco status: never smoked Alcohol intake: never Substance/Drug Use: never Adopted: No Caregiver/support person: Yes Housing: Half-Way Marital status: / Current occupational status: retired Vitals/I&O/Wt Last Vital Signs Temp 97 F L 10/28/22 19:18 Pulse 64 10/28/22 21:07 Resp 18 10/28/22 21:07 BP 182/88 10/28/22 21:07 Pulse Ox 100 10/28/22 21:07 O2 Del Method Room Air 10/28/22 19:18 Weight last 48 hrs Weight 81.647 kg Data 10/28/22 19:09 10/29/22 01:15 A&P Assessment and plan (1) Hypokalemia: (2) V-tach: (3) CAD (coronary artery disease): (4) Hypertension: (5) Atrial fibrillation: (6) Coronary artery disease: (7) Chronic kidney disease: (8) Status post implantation of automatic cardioverter/defibrillator (AICD): (9) Syncope: (10) Defibrillator discharge: Plan Ventricular tachycardia: Status post AICD discharge KARL on CKD Afib, rate controlled HFrEF Hx of CAD - Most recent echo showed: Diffuse hypokinesia of the left ventricule with an ejection ?fraction of 40%.? ?Mildly dilated left-ventricule. ?Grade III/IV diastolic dysfunction (restrictive filling ?pattern), severely elevated filling pressures. ?Moderate biatrial enlargement ?Normal RV size ejection fraction. ?Thickened mitral valve. Mild mitral annular calcification. ?Possibly severe mitral valve regurgitation. ?Thickened aortic valve. Trace to mild aortic valve ?regurgitation. ?Moderate tricuspid valve regurgitation.? ?Severe pulmonary hypertension with an estimated pulmonary artery ?peak systolic pressure of 111 mmHg. ?There is no pericardial effusion. ?There are no intracardiac masses. ?Compared to the study from 04/03/2022, there may not be a ?significant change. - Continue amio drip at this time - Replete potassium - Recheck potassium in AM. Keep K > 4, Mg > 2- Consider cardiology consult. Monitor serum potassium: Correct for goal of serum potassium greater than 4 Monitor serum magnesium correct for goal greater than 2 Continue amnio drip, if needed lidocaine drip - Check troponins History of atrial fibrillation: Currently heart rate is well controlled Continue p.o. amiodarone metoprolol currently on hold as h/r is on lower side. Unsure why patient is no longer on eliquis. Mildly reduced HFrEF: Currently compnesated Monitor intake output charting Monitor electrolytes Monitor weight Continue telemetry monitoring History of coronary artery disease: History of hypothyroidism: Am TSH : Continue levothyroxine CODE STATUS: Full code DVT prophylaxis: SCDS Attestations Medical Necessity Statement*: > 2 midnight stay for management of aicd discharge. Other Coding Information Focused coding review requested Diagnoses Hypokalemia E87.6 V-tach I47.20 CAD (coronary artery disease) I25.10 Hypertension I10 Atrial fibrillation I48.91 Chronic kidney disease N18.9 Status post implantation of automatic cardioverter/defibrillator (AICD) Z95.810 Syncope R55 Defibrillator discharge Z45.02
[2022-10-28] MEDS: heparin 5,000 unit/mL INJ 1 mL 5000 UNIT SUBCUT (22:17)
[2022-10-28] MEDS: sodium chloride 0.9% 1,000 ML 75 ML IV (22:17)
--- NOTE | 2022-10-28 23:26 | ECG_ITS ---
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 Measurements Intervals [place] Rate: 59 P: 266 OR: 214 QRS: 10 QRSD: 150 T: -68 QT: 483 QTc: 479 Interpretive Statements SINUS BRADYCARDIA WITH FIRST DEGREE AV BLOCK INTRAVENTRICULAR CONDUCTION DELAY [130+ ms QRS DURATION] Compared to ECG 10/28/2022 19:25:30 First degree AV block now present Intraventricular conduction delay now present Atrial fibrillation no longer present Right-axis deviation no longer present Right bundle-branch block no longer present ST (T wave) deviation no longer present Electronically Signed On 10-29-2022 0:16:21 CDT by Ayaan Sen M.D. [id number]
[2022-10-29] VITALS (26 sets, daily range): BP systolic 89–152; BP diastolic 44–82; PULSE 50–79; RESP 4–38; TEMP 36.4–37.1; O2SAT 93–97; BMI 23.6
[2022-10-29] MEDS: acetaminophen 325 mg Tablet 650 MG PO ×2 (01:03→21:06)
--- NOTE | 2022-10-29 01:22 | ECG_ITS ---
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 Measurements Intervals [place] Rate: 57 P: 239 [place]: 315 QRS: 4 QRSD: 134 T: -75 QT: 472 QTc: 460 Interpretive Statements SINUS BRADYCARDIA WITH FIRST DEGREE AV BLOCK INTRAVENTRICULAR CONDUCTION DELAY [130+ ms QRS DURATION] Compared to ECG 10/28/2022 23:26:00 No significant changes Electronically Signed On 10-29-2022 16:15:55 CDT by Christopher Aguilera M.D. [id number]
[2022-10-29 01:41] LABS: Troponin 5 6HR 89.29 ng/L (0-15)
[2022-10-29 01:45] LABS: Anion Gap 13.5 (5-19); Blood Urea Nitrogen 43 mg/dL (8-23); Calcium 9.3 mg/dL (8.5-10.5); Carbon Dioxide 28 mmol/L (22-29); Chloride 99 mmol/L (98-107); Glucose 111 mg/dL (65-115); Magnesium 2.3 mg/dL (1.7-2.3); Osmolality Calculated 296 mOsm/kg (285-295); Potassium 3.5 mmol/L (3.5-5.1); Sodium 137 mmol/L (136-145)
[2022-10-29 01:46] LABS: Troponin 5 6HR Delta 27.29 ng/L (0-12)
[2022-10-29] MEDS: clopidogrel 75 mg Tablet PO (05:58)
[2022-10-29] MEDS: levothyroxine 75 mcg Tablet PO (05:58)
[2022-10-29] MEDS: ferrous sulfate EC 325 mg Tablet PO (08:02)
[2022-10-29] MEDS: amiodarone 200 mg Tablet PO ×2 (08:02→17:49)
[2022-10-29] MEDS: metoprolol tartrate 25 mg Tablet 12.5 MG PO ×2 (08:02→17:49)
[2022-10-29] MEDS: lidocaine 1% 5 ML in potassium chloride premix 100 ML 26.25 ML IV (09:17)
[2022-10-29] MEDS: heparin 5,000 unit/mL INJ 1 mL 5000 UNIT SUBCUT ×2 (09:18→21:07)
[2022-10-29 10:24] LABS: Basophils % 0.7 %; Eosinophils # 0.2 10^3/uL (0.0-0.8); Hematocrit 35.9 % (42.0-52.0); Hemoglobin 11.3 g/dL (11.7-16.6); Lymphocytes # 1.3 10^3/uL (0.8-4.8); Lymphocytes % 23.4 %; Mean Corpuscular HGB Conc 31.5 g/dL (30.0-36.0); Mean Corpuscular Hemoglobin 30.5 pg (28.0-34.0); Mean Corpuscular Volume 96.8 fl (80-94); Mean Platelet Volume 9.5 fL (7.4-10.4); Monocytes # 0.7 10^3/uL (0.2-0.9); Monocytes % 12.6 %; Neutrophils # 3.28 10^3/uL (1.8-7.7); Neutrophils % 58.9 %; Nucleated Red Blood Cells % 0 %; Platelet Count 192 10^3/cmm (130-400); Red Blood Count 3.71 10^6/uL (4.1-5.3); Red Cell Distribution Width 15.3 % (12.1-15.1); White Blood Count 5.6 10^3/uL (4.0-10.0)
--- NOTE | 2022-10-29 10:58 | PM.PN ---
Subjective Subjective: Patient was seen and examined this morning, serum potassium is improving, denied any chest pain shortness of breath dizziness nausea vomiting. Medications: Medication Review Details: Generic Name Dose Route Start Last Admin Trade Name Aliza PRN Reason Stop Dose Admin Acetaminophen 650 mg 10/28/22 21:37 10/29/22 01:03 Acetaminophen 32 5 Mg Tablet PO 650 mg Q6H PRN Administration MILD PAIN Amiodarone HCl 200 mg 10/29/22 09:00 10/29/22 08:02 Amiodarone 200 M g Tablet PO 200 mg BID RICARDO Administration Clopidogrel Bisulf ate 75 mg 10/29/22 06:00 10/29/22 05:58 Clopidogrel 75 M g Tablet PO 75 mg QAM RICARDO Administration Ferrous Sulfate 325 mg 10/29/22 09:00 10/29/22 08:02 Ferrous Sulfate Ec 325 Mg Tablet PO 325 mg DAILY RICARDO Administration Heparin Sodium (Po rcine) 5,000 unit 10/28/22 21:45 10/29/22 09:18 Heparin 5,000 Un it/Ml Inj 1 Ml SUBCUT 5,000 unit Q12H RICARDO Administration Amiodarone HCl 900 mg/ 518 mls @ 0 mls/h r 10/28/22 19:45 10/28/22 19:47 Dextrose/ IV Misce llaneous IV 1 mg/min Supplies .Q0M RICARDO 34.53 mls/hr Administration Protocol Per Protocol Sodium Chloride 1,000 mls @ 75 ml s/hr 10/28/22 21:45 10/28/22 22:17 Sodium Chloride 0.9% IV 75 mls/hr .[id number] RICARDO Administration Lidocaine HCl 5 ml / Potassium 105 mls @ 26.25 m ls/hr 10/29/22 08:11 10/29/22 09:17 Chloride IV 10/29/22 12:10 26.25 mls/hr ONCE ONE Administration Levothyroxine Sodi um 75 mcg 10/29/22 06:00 10/29/22 05:58 Levothyroxine 75 Mcg Tablet PO 75 mcg QAM RICARDO Administration Metoprolol Tartrat e 12.5 mg 10/29/22 09:00 10/29/22 08:02 Metoprolol Tartr ate 25 Mg Tablet PO 12.5 mg BID RICARDO Administration Vitals/I&O/Wt Last Vital Signs Temp 98.7 F 10/29/22 06:00 Pulse 50 L 10/29/22 08:00 Resp 4 L 10/29/22 08:00 BP 106/57 10/29/22 08:00 Pulse Ox 95 10/29/22 08:00 O2 Del Method Room Air 10/29/22 07:36 10/28/22 10/29/22 10/29/22 22:59 06:59 14:59 Intake Total 225 / 225 Balance 225 / 225 Weight last 48 hrs Weight 76.657 kg Weight 76.657 kg Weight 81.647 kg Physical Exam Const: COMMON NORMALS: patient oriented x3 Resp: COMMON NORMALS: clear to auscultation bilaterally EFFORT & INSPECTION: Yes symmetric chest movement AUSCULTATION: clear to auscultation bilaterally Cardio: COMMON NORMALS: regular rate, regular rhythm, S1 normal heart sound present, S2 normal heart sound present, No gallops present (Cardio), No murmurs present (Cardio), No rub (Cardio) and Peripheral pulses 2+ throughout RATE: regular rate RHYTHM: regular rhythm HEART SOUNDS: S1 normal heart sound present and S2 normal heart sound present PERIPHERAL PULSES: Peripheral pulses 2+ throughout GI: COMMON NORMALS: Normal to inspection, nondistended, normoactive bowel sounds present, Soft to palpation, non-tender, No hepatosplenomegaly present and no masses AUSCULTATION: Yes normoactive bowel sounds PALPATION: Yes Soft to palpation and Yes No hepatosplenomegaly present RECTAL EXAM: Yes deferred Extremity: COMMON NORMALS: no clubbing, cyanosis or edema and no pedal edema Neuro: COMMON NORMALS: patient oriented x3 Data 10/29/22 10:05 10/29/22 01:15 A&P Assessment and plan (1) Hypokalemia: (2) V-tach: (3) CAD (coronary artery disease): (4) Hypertension: (5) Atrial fibrillation: (6) Chronic kidney disease: (7) Status post implantation of automatic cardioverter/defibrillator (AICD): (8) Syncope: (9) Defibrillator discharge: Plan 86 year old male with past medical history of hypertension, hypothyroidism, coronary artery disease, ischemic cardiomyopathy, heart failure with preserved ejection fraction, history of VT AICD in place, chronic anemia, atrial fibrillation, on Eliquis, came in today when his AICD went off yesterday, during that episode patient was feeling dizziness, and also experienced fall at home, currently he has significant swelling over the fluid. Currently he is being managed for Assessment: Ventricular tachycardia: Status post AICD discharge Most recent echo showed: Diffuse hypokinesia of the left ventricule with an ejection?fraction of 40%.? ?Mildly dilated left-ventricule.?Grade III/IV diastolic dysfunction (restrictive filling?pattern), severely elevated filling pressures.?Moderate biatrial enlargement?Normal RV size ejection fraction.?Thickened mitral valve. Mild mitral annular calcification.?Possibly severe mitral valve regurgitation.?Thickened aortic valve. Trace to mild aortic valve ?regurgitation.?Moderate tricuspid valve regurgitation.??Severe pulmonary hypertension with an estimated pulmonary artery ?peak systolic pressure of 111 mmHg.?There is no pericardial effusion.?There are no intracardiac masses. ?Compared to the study from 04/03/2022, there may not be a ?significant change. Patient was started on Amio drip last night currently it has been turned off, continue p.o. amiodarone Monitor electrolytes: Keep potassium greater than 4 magnesium greater than 2. Cardiology on board KARL on CKD: Likely prerenal KARL: Admission serum creatinine:2.5 Baseline serum creatinine is around:1.3-1.7 Continue to hold Bumex for now Gentle IV hydration with normal saline at 75 cc an hour Monitor intake output charting Monitor BMP Avoid nephrotoxic's History of atrial fibrillation: Currently heart rate is well controlled Continue p.o. amiodarone Continue metoprolol Appears that the patient is not on anticoagulation because of age, and his susceptibility to fall. Mildly reduced HFrEF: Currently compnesated Monitor intake output charting Monitor electrolytes Monitor weight Continue telemetry monitoring Continue to hold Bumex for now History of coronary artery disease: History of hypothyroidism: Am TSH : Continue levothyroxine CODE STATUS: Full code DVT prophylaxis: SCDS Attestations Medical Necessity Statement*: Needs to be in hospital for AICD discharge. Coding Level of Care Code 41419 Diagnoses Hypokalemia E87.6 V-tach I47.20 CAD (coronary artery disease) I25.10 Hypertension I10 Atrial fibrillation I48.91 Chronic kidney disease N18.9 Status post implantation of automatic cardioverter/defibrillator (AICD) Z95.810 Syncope R55 Defibrillator discharge Z45.02
--- NOTE | 2022-10-29 12:33 | PM.CONSULT ---
Providers/Reason For Consult Consulting Physician/Specialty*: Ayaan Sen MD/ Cardiology Reason for Consult*: ICD firing/ Ventricular tachycardia Requesting Physician: Dr Moses Attending Physician: Giovani Moses MD Primary Care Provider: Gene Peralta History of Present Illness History of Present Illness Jesus Saucedo is a 86 year old male with past medical history of coronary artery disease, hypertension ICD in place with multiple episodes of ICD shocks presented to hospital after syncope, fall and ICD shock. His potassium level was low at 2.5 at admission. His previous episodes of VT/ICD shocks have been related to hypokalemia as well. Denies chest pain at this time. Since coming to the hospital he was put on amiodarone gtt and has no further arrhythmias. Troponins elevated but consistent with ICD shock. EKG shows sinus bradycardia with no significant ST T wave changes. Review of Systems Const: Denies: fever(s), chills, body aches or change in appetite Eyes: Denies: blurry vision or eye discomfort ENMT: Denies: throat pain or dental pain Card: Reports: syncope Resp: Denies: dyspnea GI: Denies: abdominal pain, nausea, vomiting or diarrhea : Denies: dysuria Musc: Denies: neck pain or back pain Skin/Breast: Denies: rash Neuro: Denies: headache(s) Medications/Allergies Home Medications Medication Instructions Recorded Confirmed Last Taken Type nitroglycerin 0.4 mg sublingual 0.4 mg sublingual Q5MIN PRN Chest 04/12/21 10/28/22 Unknown History tablet Pain rosuvastatin 40 mg tablet 40 mg PO BEDTIME 04/12/21 10/28/22 10/27/22 21:00 History multivit with min-folic 1 tab PO DAILY 04/25/21 10/28/22 10/28/22 08:00 History acid-lutein 400 mcg-250 mcg chewable tablet (Centrum Silver) acetaminophen 500 mg tablet 500 mg PO Q6H PRN Pain 05/21/21 10/28/22 10/27/22 History (Tylenol Extra Strength) levothyroxine 75 mcg tablet 75 mcg PO QAM 03/02/22 10/28/22 10/28/22 History 0700 albuterol sulfate 90 mcg/actuation 2 puff inhalation Q6H PRN 03/04/22 10/28/22 10/25/22 History aerosol inhaler Shortness Of Breath metoprolol tartrate 25 mg tablet 12.5 mg PO BID #60 tabs 03/25/22 10/28/22 10/28/22 Rx 0800 lidocaine 4 % topical patch 1 patch topical DAILY PRN Pain 04/13/22 10/28/22 Unknown History (Salonpas (lidocaine)) clopidogrel 75 mg tablet 75 mg PO QAM #90 tabs 05/11/22 10/28/22 10/28/22 08:00 Rx hydrocodone 5 mg-acetaminophen 325 1 tab PO Q6H PRN pain #14 tabs 07/06/22 10/28/22 10/13/22 Rx mg tablet amiodarone 200 mg tablet 200 mg PO BID #180 tabs 07/11/22 10/28/22 10/28/22 08:00 Rx ferrous sulfate 325 mg (65 mg 325 mg PO DAILY #90 tabs 07/11/22 10/28/22 10/28/22 Rx iron) tablet (Feosol) 0800 polyethylene glycol 3350 17 4 g PO DAILY PRN constipation #119 07/11/22 10/28/22 Unknown Rx gram/dose oral powder (Miralax) grams bumetanide 1 mg tablet 0.5 mg PO BID #30 tabs 09/02/22 10/28/22 10/28/22 08:00 Rx melatonin 5 mg disintegrating 5 mg PO BEDTIME 10/28/22 10/28/22 10/27/22 21:00 History tablet potassium 75 mg tablet 75 mg PO BID 10/28/22 10/28/22 10/28/22 History Allergies Allergy/AdvReac Type Severity Reaction Status Date / Time JACKIE Inhibitors Allergy Unknown Unknown Verified 10/28/22 19:27 Latex, Natural Rubber Allergy Unknown ALGY-Rash Verified 10/28/22 19:27 aspirin Allergy ALGY-Hives Verified 10/28/22 19:27 Current Medications Generic Name Dose Route Start Last Admin Trade Name Freq PRN Reason Stop Dose Admin Acetaminophen 650 mg 10/28/22 21:37 10/29/22 01:03 Acetaminophen 325 Mg Tablet PO 650 mg Q6H PRN Administration MILD PAIN Amiodarone HCl 200 mg 10/29/22 09:00 10/29/22 08:02 Amiodarone 200 Mg Tablet PO 200 mg BID RICARDO Administration Clopidogrel Bisulfate 75 mg 10/29/22 06:00 10/29/22 05:58 Clopidogrel 75 Mg Tablet PO 75 mg QAM RICARDO Administration Ferrous Sulfate 325 mg 10/29/22 09:00 10/29/22 08:02 Ferrous Sulfate Ec 325 Mg Tablet PO 325 mg DAILY RICARDO Administration Heparin Sodium (Porcine) 5,000 unit 10/28/22 21:45 10/29/22 09:18 Heparin 5,000 Unit/Ml Inj 1 Ml SUBCUT 5,000 unit Q12H RICARDO Administration Amiodarone HCl 900 mg/ 518 mls @ 0 mls/hr 10/28/22 19:45 10/28/22 19:47 Dextrose/ IV Miscellaneous IV 1 mg/min Supplies .Q0M RICARDO 34.53 mls/hr Administration Protocol Per Protocol Sodium Chloride 1,000 mls @ 75 mls/hr 10/28/22 21:45 10/28/22 22:17 Sodium Chloride 0.9% IV 75 mls/hr .[id number] RICARDO Administration Levothyroxine Sodium 75 mcg 10/29/22 06:00 10/29/22 05:58 Levothyroxine 75 Mcg Tablet PO 75 mcg QAM RICARDO Administration Metoprolol Tartrate 12.5 mg 10/29/22 09:00 10/29/22 08:02 Metoprolol Tartrate 25 Mg Tablet PO 12.5 mg BID RICARDO Administration PFSH Acute PFSH: Medical History Acute diastolic (congestive) heart failure Acute [place] Acute non-ST elevation myocardial infarction (NSTEMI) Acute on chronic systolic heart failure Anemia Anemia Atherosclerosis of coronary artery of [place] heart without angina pectoris Atrial fibrillation Rate control on anticoagulation Cardiomyopathy History of ischemic cardiomyopathy, do not need revascularization, continue optimal medical regimen Chronic kidney disease Coronary artery disease Coronary artery disease Hyperlipidemia Hypertension Well-controlled Sustained VT (ventricular tachycardia) Continue current regimen including beta-ashley, amiodarone. Appear to be stable not in VT anymore. Can be discharged home. Tubular adenoma of colon Ventricular tachycardia Ventricular tachycardia Wide-complex tachycardia Surgical History History of back surgery History of cardiac defibrillator placement Stented coronary artery Family History Mother No problems noted. Father No problems noted. Other CAD (coronary artery disease) Social History Smoking and tobacco status: never smoked Alcohol intake: never Substance/Drug Use: never Adopted: No Caregiver/support person: Yes Housing: Residential Marital status: / Current occupational status: retired Vitals/I&O/Wt Last Vital Signs Temp 98.1 F 10/29/22 09:00 Pulse 50 L 10/29/22 11:00 Resp 16 10/29/22 11:00 BP 97/44 10/29/22 11:00 Pulse Ox 95 10/29/22 08:00 O2 Del Method Room Air 10/29/22 07:36 10/28/22 10/29/22 10/29/22 22:59 06:59 14:59 Intake Total 225 / 225 240 / 240 Balance 225 / 225 240 / 240 Weight last 48 hrs Weight 169 lb Weight 169 lb Weight 180 lb Physical Exam Narrative: GENERAL: Patient is alert, awake and oriented x3. [] NECK: No jugular vein distension. [] HEENT: No cyanosis. No icterus. No pallor. [] HEART: Regular S1 and S2. No murmur, rub or gallop. [] LUNGS: Diminished air entry bilaterally CENTRAL NERVOUS SYSTEM: Grossly nonfocal. [] EXTREMITIES: Lower extremities with 1+ edema bilaterally. Data 10/30/22 02:53 10/31/22 03:52 A&P Assessment and plan (1) V-tach: (2) CAD (coronary artery disease): (3) Hypertension: (4) Atrial fibrillation: (5) Status post implantation of automatic cardioverter/defibrillator (AICD): Plan Patient had appropriate ICD shocks in the setting of severe hypokalemia. Is prior episodes of ICD shocks ventricular arrhythmias have been associated with hypokalemia as well. Replace with goal of potassium over 4. Amiodarone drip can be switched to p.o. amiodarone. Rhythm has been stable Continue Plavix. Spironolactone will be a consideration however renal function is not normal at this time. We will hold off. As outpatient he will need weekly labs. Potassium replacement titrated if still hypokalemic. Thank you for involving us with care of this patient. We will continue to follow. Please call with questions. Consult Attestations Medical Necessity Statement: Care expected to cross 2 midnights. Coding Level of Care Code Acute Code for Chg Fwd Diagnoses V-tach I47.20 CAD (coronary artery disease) I25.10 Hypertension I10 Atrial fibrillation I48.91 Status post implantation of automatic cardioverter/defibrillator (AICD) Z95.810
[2022-10-29] MEDS: sodium chloride 0.9% 1,000 ML 75 ML IV (17:50)
--- NOTE | 2022-10-29 17:59 | PC.NURSE ---
This nurse offered to assist patient to chair and he politely declined. He stated, I will do it tomorrow.
[2022-10-29] MEDS: atorvastatin 40 mg Tablet PO (21:07)
[2022-10-29] MEDS: trazodone 100 mg Tablet PO (21:26)
[2022-10-30] VITALS (25 sets, daily range): BP systolic 87–147; BP diastolic 48–77; PULSE 50–122; RESP 9–30; TEMP 37.1; O2SAT 94–100; BMI 23.6
[2022-10-30 03:48] LABS: Anion Gap 11.2 (5-19); Blood Urea Nitrogen 30 mg/dL (8-23); Calcium 8.6 mg/dL (8.5-10.5); Carbon Dioxide 27 mmol/L (22-29); Chloride 106 mmol/L (98-107); Glucose 101 mg/dL (65-115); Osmolality Calculated 298 mOsm/kg (285-295); Potassium 3.2 mmol/L (3.5-5.1); Sodium 141 mmol/L (136-145)
[2022-10-30] MEDS: clopidogrel 75 mg Tablet PO (06:14)
[2022-10-30] MEDS: levothyroxine 75 mcg Tablet PO (06:14)
[2022-10-30 06:41] LABS: Basophils % 0.7 %; Eosinophils # 0.3 10^3/uL (0.0-0.8); Eosinophils % 6.7 %; Hematocrit 32.6 % (42.0-52.0); Hemoglobin 10.2 g/dL (11.7-16.6); Lymphocytes # 1.4 10^3/uL (0.8-4.8); Lymphocytes % 32.8 %; Mean Corpuscular HGB Conc 31.3 g/dL (30.0-36.0); Mean Corpuscular Hemoglobin 30.3 pg (28.0-34.0); Mean Corpuscular Volume 96.7 fl (80-94); Mean Platelet Volume 10.2 fL (7.4-10.4); Monocytes # 0.6 10^3/uL (0.2-0.9); Monocytes % 13.2 %; Neutrophils # 2.01 10^3/uL (1.8-7.7); Neutrophils % 46.4 %; Nucleated Red Blood Cells % 0 %; Platelet Count 159 10^3/cmm (130-400); Red Blood Count 3.37 10^6/uL (4.1-5.3); Red Cell Distribution Width 15.1 % (12.1-15.1); White Blood Count 4.3 10^3/uL (4.0-10.0)
[2022-10-30] MEDS: ferrous sulfate EC 325 mg Tablet PO (08:32)
[2022-10-30] MEDS: amiodarone 200 mg Tablet PO ×2 (08:32→17:16)
[2022-10-30] MEDS: sodium chloride 0.9% 1,000 ML 75 ML IV (08:32)
[2022-10-30] MEDS: metoprolol tartrate 25 mg Tablet 12.5 MG PO ×2 (08:32→17:17)
--- NOTE | 2022-10-30 08:55 | P.PN_ITS ---
Subjective Subjective: Patient is overall stable. No further episodes of ventricular arrhythmias. Vitals/I&O/Wt Last Vital Signs Temp 98.7 F 10/30/22 00:00 Pulse 76 10/30/22 08:04 Resp 15 10/30/22 06:00 BP 143/64 10/30/22 06:00 Pulse Ox 97 10/30/22 08:04 O2 Del Method Room Air 10/30/22 08:04 10/29/22 10/30/22 10/30/22 22:59 06:59 14:59 Intake Total 345 / 2281.372 240 / 2521.372 1000 / 1000 Balance 345 / 2281.372 240 / 2521.372 1000 / 1000 Weight last 48 hrs Weight 169 lb Weight 169 lb Weight 169 lb Weight 180 lb Physical Exam Narrative: GENERAL: Patient is alert, awake and oriented x3. [] NECK: No jugular vein distension. [] HEENT: No cyanosis. No icterus. No pallor. [] HEART: Regular S1 and S2. No murmur, rub or gallop. [] LUNGS: Diminished air entry bilaterally CENTRAL NERVOUS SYSTEM: Grossly nonfocal. [] EXTREMITIES: Lower extremities with 1+ edema bilaterally. Data 10/30/22 02:53 10/31/22 03:52 A&P Assessment and plan (1) V-tach: (2) CAD (coronary artery disease): (3) Hypertension: (4) Atrial fibrillation: (5) Status post implantation of automatic cardioverter/defibrillator (AICD): Plan Rhythm has been stable. Renal function improving. Replace potassium with a goal of 4. Continue amiodarone. Will need weekly potassium levels and uptitration of replacement if stays hypokalemic Thank you for involving us with care of this patient. History is stable, can be discharged by tomorrow. Please call with questions. Attestations 2 Medical Necessity Statement*: Care expected to cross 2 midnights. Coding Level of Care Code Acute Code for [facility] Fwd Diagnoses V-tach I47.20 CAD (coronary artery disease) I25.10 Hypertension I10 Atrial fibrillation I48.91 Status post implantation of automatic cardioverter/defibrillator (AICD) Z95.810
[2022-10-30] MEDS: potassium chloride ER 20 mEq Tablet 40 MEQ PO ×2 (10:41→17:17)
[2022-10-30] MEDS: heparin 5,000 unit/mL INJ 1 mL 5000 UNIT SUBCUT ×2 (10:42→20:56)
[2022-10-30] MEDS: lidocaine 1% 5 ML in potassium chloride premix 100 ML 52.5 ML IV (10:42)
--- NOTE | 2022-10-30 14:52 | P.PN_ITS ---
Subjective Subjective: Patient was seen and examined this morning, no similar episode reported, serum potassium this morning is 3.2. Serum creatinine is further trending down. Medications: Medication Review Details: Generic Name Dose Route Start Last Admin Trade Name Jersonq PRN Reason Stop Dose Admin Acetaminophen 650 mg 10/28/22 21:37 10/29/22 21:06 Acetaminophen 32 5 Mg Tablet PO 650 mg Q6H PRN Administration MILD PAIN Amiodarone HCl 200 mg 10/29/22 09:00 10/30/22 08:32 Amiodarone 200 M g Tablet PO 200 mg BID RICARDO Administration Atorvastatin Calci um 40 mg 10/29/22 21:00 10/29/22 21:07 Atorvastatin 40 Mg Tablet PO 40 mg BEDTIME RICARDO Administration Clopidogrel Bisulf ate 75 mg 10/29/22 06:00 10/30/22 06:14 Clopidogrel 75 M g Tablet PO 75 mg QAM RICARDO Administration Ferrous Sulfate 325 mg 10/29/22 09:00 10/30/22 08:32 Ferrous Sulfate Ec 325 Mg Tablet PO 325 mg DAILY RICARDO Administration Heparin Sodium (Po rcine) 5,000 unit 10/28/22 21:45 10/30/22 10:42 Heparin 5,000 Un it/Ml Inj 1 Ml SUBCUT 5,000 unit Q12H RICARDO Administration Amiodarone HCl 900 mg/ 518 mls @ 0 mls/h r 10/28/22 19:45 10/29/22 21:51 Dextrose/ IV Misce llaneous IV Infused Supplies .Q0M RICARDO Titration Protocol Per Protocol Levothyroxine Sodi um 75 mcg 10/29/22 06:00 10/30/22 06:14 Levothyroxine 75 Mcg Tablet PO 75 mcg QAM RICARDO Administration Metoprolol Tartrat e 12.5 mg 10/29/22 09:00 10/30/22 08:32 Metoprolol Tartr ate 25 Mg Tablet PO 12.5 mg BID RICARDO Administration Potassium Chloride 40 meq 10/30/22 09:00 10/30/22 10:41 Potassium Chlori de Er 20 Meq Table t PO 40 meq BID RICARDO Administration Trazodone HCl 100 mg 10/29/22 21:11 10/29/22 21:26 Trazodone 100 Mg Tablet PO 100 mg BEDTIME PRN Administration INSOMNIA Vitals/I&O/Wt Last Vital Signs Temp 98.7 F 10/30/22 00:00 Pulse 122 H 10/30/22 12:00 Resp 30 H 10/30/22 12:00 BP 115/52 10/30/22 12:00 Pulse Ox 97 10/30/22 12:00 O2 Del Method Room Air 10/30/22 08:04 10/29/22 10/30/22 10/30/22 22:59 06:59 14:59 Intake Total 345 / 2281.372 240 / 2521.372 1000 / 1000 Output Total 225 / 225 Balance 345 / 2281.372 240 / 2521.372 775 / 775 Weight last 48 hrs Weight 76.657 kg Weight 76.657 kg Weight 76.657 kg Weight 81.647 kg Physical Exam Const: COMMON NORMALS: patient oriented x3 Resp: COMMON NORMALS: clear to auscultation bilaterally EFFORT & INSPECTION: Yes symmetric chest movement AUSCULTATION: clear to auscultation bilaterally Cardio: COMMON NORMALS: regular rate, regular rhythm, S1 normal heart sound present, S2 normal heart sound present, No gallops present (Cardio), No murmurs present (Cardio), No rub (Cardio) and Peripheral pulses 2+ throughout RATE: regular rate RHYTHM: regular rhythm HEART SOUNDS: S1 normal heart sound present and S2 normal heart sound present PERIPHERAL PULSES: Peripheral pulses 2+ throughout GI: COMMON NORMALS: Normal to inspection, nondistended, normoactive bowel sounds present, Soft to palpation, non-tender, No hepatosplenomegaly present and no masses AUSCULTATION: Yes normoactive bowel sounds PALPATION: Yes Soft to palpation and Yes No hepatosplenomegaly present RECTAL EXAM: Yes deferred Extremity: COMMON NORMALS: no clubbing, cyanosis or edema and no pedal edema Neuro: COMMON NORMALS: patient oriented x3 Data 10/30/22 02:53 10/30/22 02:53 A&P Assessment and plan (1) Hypokalemia: (2) V-tach: (3) CAD (coronary artery disease): (4) Hypertension: (5) Atrial fibrillation: (6) Chronic kidney disease: (7) Status post implantation of automatic cardioverter/defibrillator (AICD): (8) Syncope: (9) Defibrillator discharge: Plan 86 year old male with past medical history of hypertension, hypothyroidism, coronary artery disease, ischemic cardiomyopathy, heart failure with preserved ejection fraction, history of VT AICD in place, chronic anemia, atrial fibrillation, on Eliquis, came in today when his AICD went off yesterday, during that episode patient was feeling dizziness, and also experienced fall at home, currently he has significant swelling over the fluid. Currently he is being managed for Assessment: Ventricular tachycardia: Status post AICD discharge Most recent echo showed: Diffuse hypokinesia of the left ventricule with an ejection?fraction of 40%.? ?Mildly dilated left-ventricule.?Grade III/IV diastolic dysfunction (restrictive filling?pattern), severely elevated filling pressures.?Moderate biatrial en largement?Normal RV size ejection fraction.?Thickened mitral valve. Mild mitral annular calcification.?Possibly severe mitral valve regurgitation.?Thickened aortic valve. Trace to mild aortic valve ?regurgitation.?Moderate tricuspid valve regurgitation.??Severe pulmonary hypertension with an estimated pulmonary artery ?peak systolic pressure of 111 mmHg.?There is no pericardial effusion.?There are no intracardiac masses. ?Compared to the study from 04/03/2022, there may not be a ?significant change. Patient was started on Amio drip last night currently it has been turned off, continue p.o. amiodarone Monitor electrolytes: Keep potassium greater than 4 magnesium greater than 2. Cardiology on board KARL on CKD: Likely prerenal KARL: Admission serum creatinine:2.5 Baseline serum creatinine is around:1.3-1.7 Continue to hold Bumex for now Gentle IV hydration with normal saline at 75 cc an hour Monitor intake output charting Monitor BMP Avoid nephrotoxic's History of atrial fibrillation: Currently heart rate is well controlled Continue p.o. amiodarone Continue metoprolol Appears that the patient is not on anticoagulation because of age, and his susceptibility to fall. Mildly reduced HFrEF: Currently compnesated Monitor intake output charting Monitor electrolytes Monitor weight Continue telemetry monitoring Continue to hold Bumex for now NSTEMI likely type II: Troponin trend:62-63-89. Cardiology on board History of coronary artery disease: History of hypothyroidism: TSH : Continue levothyroxine CODE STATUS: Full code DVT prophylaxis: SCDS Attestations Medical Necessity Statement*: Patient is in hospital for management of AICD firing, hypokalemia.Need for potassium replacement. Coding Level of Care Code Acute Code for Chg Fwd Diagnoses Hypokalemia E87.6 V-tach I47.20 CAD (coronary artery disease) I25.10 Hypertension I10 Atrial fibrillation I48.91 Chronic kidney disease N18.9 Status post implantation of automatic cardioverter/defibrillator (AICD) Z95.810 Syncope R55 Defibrillator discharge Z45.02
[2022-10-30] MEDS: trazodone 100 mg Tablet PO (20:55)
[2022-10-30] MEDS: acetaminophen 325 mg Tablet 650 MG PO (20:55)
[2022-10-30] MEDS: atorvastatin 40 mg Tablet PO (20:56)
[2022-10-31] VITALS (10 sets, daily range): BP systolic 118–146; BP diastolic 56–84; PULSE 50–65; RESP 14–24; TEMP 36.5–36.8; O2SAT 95–98; BMI 23.6
[2022-10-31 04:58] LABS: Anion Gap 13.1 (5-19); Blood Urea Nitrogen 21 mg/dL (8-23); Calcium 8.8 mg/dL (8.5-10.5); Carbon Dioxide 23 mmol/L (22-29); Chloride 112 mmol/L (98-107); Glucose 93 mg/dL (65-115); Osmolality Calculated 301 mOsm/kg (285-295); Potassium 4.1 mmol/L (3.5-5.1); Sodium 144 mmol/L (136-145)
[2022-10-31] MEDS: clopidogrel 75 mg Tablet PO (05:30)
[2022-10-31] MEDS: levothyroxine 75 mcg Tablet PO (05:30)
[2022-10-31] MEDS: potassium chloride ER 20 mEq Tablet 40 MEQ PO (08:53)
[2022-10-31] MEDS: metoprolol tartrate 25 mg Tablet 12.5 MG PO (08:53)
[2022-10-31] MEDS: amiodarone 200 mg Tablet PO (08:53)
[2022-10-31] MEDS: ferrous sulfate EC 325 mg Tablet PO (08:53)
[2022-10-31] MEDS: heparin 5,000 unit/mL INJ 1 mL 5000 UNIT SUBCUT (08:54)
[2022-10-31 11:27] LABS: Basophils % 0.6 %; Eosinophils # 0.3 10^3/uL (0.0-0.8); Eosinophils % 5.8 %; Hematocrit 36.4 % (42.0-52.0); Hemoglobin 11.1 g/dL (11.7-16.6); Lymphocytes # 1.1 10^3/uL (0.8-4.8); Lymphocytes % 23.7 %; Mean Corpuscular HGB Conc 30.5 g/dL (30.0-36.0); Mean Corpuscular Volume 101.7 fl (80-94); Mean Platelet Volume 9.6 fL (7.4-10.4); Monocytes # 0.6 10^3/uL (0.2-0.9); Monocytes % 11.7 %; Neutrophils # 2.72 10^3/uL (1.8-7.7); Nucleated Red Blood Cells % 0 %; Platelet Count 169 10^3/cmm (130-400); Red Blood Count 3.58 10^6/uL (4.1-5.3); Red Cell Distribution Width 14.8 % (12.1-15.1); White Blood Count 4.7 10^3/uL (4.0-10.0)
--- NOTE | 2022-10-31 12:22 | P.DS_ITS ---
Discharge Providers Date of Admission: 10/28/22 20:25 Date of Discharge: October 31, 2022 Attending Provider at Admission: Charley Covington MD Attending Provider at Discharge: Giovani Moses MD Primary Care Provider: Gnee Peralta Diagnoses at Discharge Discharge Diagnosis (1) V-tach: Status: Acute (2) CAD (coronary artery disease): Status: Acute (3) Hypertension: Status: Acute Permanent problem details: Well-controlled (4) Atrial fibrillation: Status: Acute (5) Status post implantation of automatic cardioverter/defibrillator (AICD): Status: Acute Reason for Visit Reason for Visit: SOB/CP Hospital Course Hospital Course 86 year old male with past medical history of hypertension, hypothyroidism, coronary artery disease, ischemic cardiomyopathy, atrial fibrillation, heart failure with with reduced ejection fraction, history of VT AICD in place, chronic anemia, atrial fibrillation, on Eliquis, came in today when his AICD went off yesterday, during that episode patient was feeling dizziness, and also experienced fall at home, currently he has significant swelling over the fluid.Patient was admitted for management of ventricular tachycardia secondary to Hypokalemia s/p AICD discharge, during the hospital stay, aggressive hypokalemia correction was undertaken, he was initially placed on amiodarone drip, and was later continued on p.o. amiodarone As well as metoprolol, no similar event were noted during the hospital, at the time of discharge Hypokalemia has been corrected. During the hospital stay patient was also managed for KARL on CKD stage III, likely prerenal KARL, he was kept on gentle IV hydration, BMP was monitored nephrotoxic's were avoided Bumex was kept on hold, at the time of discharge serum creatinine was progressing towards the baseline, Bumex has been kept on hold, will be resumed from 11/05, patient has been asked to monitor BMP closely at home, and call the results at [facility], for appropriate adjustment of oral potassium.Overall patient responded well to above medical management and is being discharged in stable condition to home, will continue to follow cardiology as well as PCP as outpatient. Physical Exam Const: COMMON NORMALS: patient oriented x3 HENMT: COMMON NORMALS: normocephalic and atraumatic HEAD & SCALP: normocephalic and atraumatic Resp: COMMON NORMALS: clear to auscultation bilaterally AUSCULTATION: clear to auscultation bilaterally Cardio: COMMON NORMALS: No gallops present (Cardio), No murmurs present (Cardio), No rub (Cardio) and Peripheral pulses 2+ throughout PERIPHERAL PULSES: Peripheral pulses 2+ throughout OTHER: Irregularly irregular rhythm S1-S2 variable intensity GI: COMMON NORMALS: Normal to inspection, nondistended, normoactive bowel sounds present, Soft to palpation, non-tender, No hepatosplenomegaly present and no masses AUSCULTATION: Yes normoactive bowel sounds PALPATION: Yes Soft to palpation and Yes No hepatosplenomegaly present RECTAL EXAM: Yes deferred Extremity: COMMON NORMALS: no clubbing, cyanosis or edema and no pedal edema Neuro: COMMON NORMALS: patient oriented x3 Discharge Data Studies Completed and Pending Completed Studies During Hospitalization Category Date Time Status CT head wo con* [id number] Stat Cat Scan 10/28/22 19:52 Completed XR chest 1V portable [id number] Stat Exams 10/28/22 19:21 Completed Pending at discharge Category Date Time Status BMP [Basic Metabolic Panel] AM LABS Lab 11/01/22 04:00 Ordered Radiology Impressions Chest X-Ray 10/28/22 19:21 IMPRESSION: Lungs clear Head CT 10/28/22 19:52 IMPRESSION: No acute findings Mild left frontal scalp swelling Laboratory Results WBC 4.7 10^3/uL (4.0-10.0) 10/31/22 11:12 Corrected WBC Cancelled 10/31/22 10:45 RBC 3.58 10^6/uL (4.1-5.3) L 10/31/22 11:12 Hgb 11.1 g/dL (11.7-16.6) L 10/31/22 11:12 Hct 36.4 % (42.0-52.0) L 10/31/22 11:12 MCV 101.7 fl (80-94) H 10/31/22 11:12 MCH 31.0 pg (28.0-34.0) 10/31/22 11:12 MCHC 30.5 g/dL (30.0-36.0) 10/31/22 11:12 RDW 14.8 % (12.1-15.1) 10/31/22 11:12 Plt Count 169 10^3/cmm (130-400) 10/31/22 11:12 MPV 9.6 fL (7.4-10.4) 10/31/22 11:12 Gran % Cancelled 10/31/22 10:45 Neut % (Auto) 58.0 % 10/31/22 11:12 Lymph % (Auto) 23.7 % 10/31/22 11:12 Falls % (Auto) 11.7 % 10/31/22 11:12 Eos % (Auto) 5.8 % 10/31/22 11:12 Baso % (Auto) 0.6 % 10/31/22 11:12 Neut # (Auto) 2.72 10^3/uL (1.8-7.7) 10/31/22 11:12 Lymph # (Auto) 1.1 10^3/uL (0.8-4.8) 10/31/22 11:12 Falls # (Auto) 0.6 10^3/uL (0.2-0.9) 10/31/22 11:12 Eos # (Auto) 0.3 10^3/uL (0.0-0.8) 10/31/22 11:12 Baso # (Auto) 0.0 10^3/uL (0.0-0.1) 10/31/22 11:12 Absolute Gran (auto) Cancelled 10/31/22 10:45 Nucleated RBC % (auto) 0 % 10/31/22 11:12 Nucleated RBCs # 0.0 /100WBC 10/31/22 11:12 PT 13.10 SECONDS (12.1-14.9) 10/28/22 19:09 INR 0.96 (0.8-1.2) 10/28/22 19:09 Sodium 144 mmol/L (136-145) 10/31/22 03:52 Potassium 4.1 mmol/L (3.5-5.1) 10/31/22 03:52 Chloride 112 mmol/L (98-107) H 10/31/22 03:52 Carbon Dioxide 23 mmol/L (22-29) 10/31/22 03:52 Anion Gap 13.1 (5-19) 10/31/22 03:52 BUN 21 mg/dL (8-23) 10/31/22 03:52 Creatinine 1.5 mg/dL (0.7-1.2) H 10/31/22 03:52 GFR Calculation Not Reportable 10/31/22 03:52 Glucose 93 mg/dL (65-115) 10/31/22 03:52 Calculated Osmolality 301 mOsm/kg (285-295) H 10/31/22 03:52 Calcium 8.8 mg/dL (8.5-10.5) 10/31/22 03:52 Magnesium 2.3 mg/dL (1.7-2.3) 10/29/22 01:15 Total Bilirubin 0.4 mg/dL (0.15-1.2) 10/28/22 19:09 AST 193 U/L (0-40) H 10/28/22 19:09 ALT 185 U/L (0-41) H 10/28/22 19:09 Alkaline Phosphatase 102 U/L (40-130) 10/28/22 19:09 Troponin T Baseline 62 ng/L (0-15) H 10/28/22 19:09 Troponin T 120 Minute 63.55 ng/L (0-15) H 10/28/22 20:50 Delta Troponin T 1.55 ABS# (0-10) 10/28/22 20:50 Troponin T Hi Sens 6Hr 89.29 ng/L (0-15) H 10/29/22 01:15 Troponin T Hi Sens 6Hr Delta 27.29 ng/L (0-12) H* 10/29/22 01:15 Total Protein 7.5 g/dL (6.6-8.7) 10/28/22 19:09 Albumin 3.9 g/dL (3.5-5.2) 10/28/22 19:09 Globulin 3.6 g/dL (1.3-4.6) 10/28/22 19:09 Vitals Last Vital Signs Temp 97.7 F 10/31/22 10:00 Pulse 50 L 10/31/22 10:00 Resp 22 H 10/31/22 10:00 BP 122/80 10/31/22 10:00 Pulse Ox 98 10/31/22 10:00 O2 Del Method Room Air 10/31/22 10:00 Discharge Plan Discharge Patient Disposition: Home Health Service Condition: Stable Prescriptions: New Klor-Con M20 20 mEq Tablet,Er Particles/Crystals 60 meq PO BID 30 Days Qty: 180 3RF Continued acetaminophen [Tylenol Extra Strength] 500 mg tablet 500 mg PO Q6H PRN (Reason: Pain) metoprolol tartrate 25 mg tablet 12.5 mg PO BID Qty: 60 3RF lidocaine [Salonpas (lidocaine)] 4 % adhesive patch,medicated 1 patch topical DAILY PRN (Reason: Pain) clopidogrel 75 mg tablet 75 mg PO QAM Qty: 90 3RF Hold Instructions: Resume on 06/06/22. nitroglycerin 0.4 mg tablet, sublingual 0.4 mg sublingual Q5MIN PRN (Reason: Chest Pain) rosuvastatin 40 mg tablet 40 mg PO BEDTIME Centrum Silver 400-250 mcg Tablet,Chewable 1 tab PO DAILY levothyroxine 75 mcg tablet 75 mcg PO QAM hydrocodone-acetaminophen 5-325 mg tablet 1 tab PO Q6H PRN (Reason: pain) Qty: 14 0RF melatonin 5 mg Tablet,Disintegrating 5 mg PO BEDTIME albuterol sulfate 90 mcg/actuation HFA aerosol inhaler 2 puff INHALATION Q6H PRN (Reason: Shortness Of Breath) amiodarone 200 mg tablet 200 mg PO BID Qty: 180 3RF ferrous sulfate [Feosol] 325 mg (65 mg iron) tablet 325 mg PO DAILY Qty: 90 1RF polyethylene glycol 3350 [Miralax] 17 gram/dose powder 4 g PO DAILY PRN (Reason: constipation) Qty: 119 0RF Held bumetanide 1 mg tablet 0.5 mg PO BID Qty: 30 0RF Hold Instructions: Resume on 11/05/22. Discontinued potassium 75 mg Tablet 75 mg PO BID Discharge Orders: Discharge Order (Routine); Ordered 10/31/22 Ordered By: Giovani Moses Referrals: [facility] ([facility]) [Outside] Gene Peralta [Primary Care Provider] - Nancy Jorgensen FNP [Nurse Practitioner] - 1 week Patient Instructions: Potassium Chloride (By mouth) (K-Dur, K-Sigrid, K-Tab, Ramiro Mur), Opioid Safety Discharge Attestations Time Spent in Discharge Care*: less than 30 min Quality Metrics Clinical Quality Measures [ No reported AMI, CVA or VTE this stay] Coding Level of Care Code Acute Code for Chg Fwd Diagnoses V-tach I47.20 CAD (coronary artery disease) I25.10 Hypertension I10 Atrial fibrillation I48.91 Status post implantation of automatic cardioverter/defibrillator (AICD) Z95.810
--- NOTE | 2022-10-31 18:00 | PC.NURSE ---
Around noon patient and daughter present at bedside was notified that patient had discharge orders. Patient's daughter Antonina voiced concern about the patient being sent home because of issues in the past of having readmission to the hospital soon after discharge due to low potassium. It was explained that discharge instructions would be provided including medications and dosing and that I could contact the doctor about her concerns. Doctor Josué was contacted and it was explained that weekly lab draws would be done by home health and that medications would be changed accordingly. This was explained to both the patient and his daughter. Daughter was still not happy about patient being discharged and said if he has to be readmitted again right away heads are going to roll. The daughter(Antonina) was very polite to this nurse and kept saying that she is not mad at me but she is definitely going to administration if her father has to be readmitted due to issues of his medications not being managed before discharge. Patient was discharged at 12:30 accompanied by Antonina.
== END 2022-10-31 12:30 | disposition home health service (06) | DRG 309 ==
LOC: ER 20:35 → ICU 20:54
PROVIDERS: Admitting Provider Internal Medicine; Emergency Provider Emergency Medicine; PCP Family Medicine; Visit Provider Internal Medicine
DX: I47.20 Ventricular tachycardia, unspecified (principal); I13.0 Hypertensive heart and chronic kidney disease with heart failure and stage 1 through stage 4 chronic kidney disease, or unspecified chronic kidney disease; I50.22 Chronic systolic (congestive) heart failure; N17.9 Acute kidney failure, unspecified; N18.30 Chronic kidney disease, stage 3 unspecified; E03.9 Hypothyroidism, unspecified; I25.10 Atherosclerotic heart disease of native coronary artery without angina pectoris; Z95.5 Presence of coronary angioplasty implant and graft; I25.5 Ischemic cardiomyopathy; I48.91 Unspecified atrial fibrillation; Z95.810 Presence of automatic (implantable) cardiac defibrillator; D63.1 Anemia in chronic kidney disease; E87.6 Hypokalemia; Z79.02 Long term (current) use of antithrombotics/antiplatelets; Z79.891 Long term (current) use of opiate analgesic; I25.2 Old myocardial infarction; E78.5 Hyperlipidemia, unspecified; I08.1 Rheumatic disorders of both mitral and tricuspid valves
CPT/HCPCS: 36415; 70450; 71045; 80048; 80053; 83735; 84484; 85025; 85610; 93005; 96365; 96372; 96375; 99285; J0282; J1644; J3480; J7030; J7060

== ENCOUNTER 2022-11-06 14:20 | Outpatient (CLI) | payer MEDICARE, OTHER, SELFPAY ==
[2022-11-06 14:42] LABS: Basophils % 0.6 %; Eosinophils # 0.2 10^3/uL (0.0-0.8); Eosinophils % 3.9 %; Hematocrit 36.1 % (42.0-52.0); Hemoglobin 11.6 g/dL (11.7-16.6); Lymphocytes # 1.5 10^3/uL (0.8-4.8); Lymphocytes % 27.6 %; Mean Corpuscular HGB Conc 32.1 g/dL (30.0-36.0); Mean Corpuscular Hemoglobin 31.2 pg (28.0-34.0); Mean Platelet Volume 9.8 fL (7.4-10.4); Monocytes # 0.6 10^3/uL (0.2-0.9); Monocytes % 11.8 %; Neutrophils # 3.04 10^3/uL (1.8-7.7); Neutrophils % 55.7 %; Nucleated Red Blood Cells % 0 %; Platelet Count 168 10^3/cmm (130-400); Red Blood Count 3.72 10^6/uL (4.1-5.3); Red Cell Distribution Width 15.2 % (12.1-15.1); White Blood Count 5.4 10^3/uL (4.0-10.0)
[2022-11-06 14:56] LABS: INR 1.01 (0.8-1.2)
[2022-11-06 15:02] LABS: Anion Gap 14.6 (5-19); Blood Urea Nitrogen 18 mg/dL (8-23); Calcium 9.1 mg/dL (8.5-10.5); Carbon Dioxide 25 mmol/L (22-29); Chloride 106 mmol/L (98-107); Glucose 92 mg/dL (65-115); Osmolality Calculated 294 mOsm/kg (285-295); Potassium 4.6 mmol/L (3.5-5.1); Sodium 141 mmol/L (136-145)
== END 2022-11-06 14:21 | disposition home or self-care (01) ==
LOC: LAB 14:23
PROVIDERS: PCP Family Medicine; Visit Provider Family Medicine
DX: N18.9 Chronic kidney disease, unspecified (principal); E87.6 Hypokalemia
CPT/HCPCS: 80048; 85025; 85610

== ENCOUNTER → 2022-11-10 15:57 | Outpatient (BNVA) | payer MEDICARE, OTHER, SELFPAY | PROVIDERS: PCP Family Medicine; Visit Provider Orthopaedic Surgery | DX: M54.9 Dorsalgia, unspecified (principal); Z98.1 Arthrodesis status | CPT/HCPCS: 72100; 99214 ==

== ENCOUNTER → 2022-11-18 14:36 | Outpatient (BNVA) | payer MEDICARE, OTHER, SELFPAY | PROVIDERS: PCP Family Medicine; Visit Provider Internal Medicine | DX: I48.91 Unspecified atrial fibrillation (principal); Z95.810 Presence of automatic (implantable) cardiac defibrillator; I42.9 Cardiomyopathy, unspecified; I25.10 Atherosclerotic heart disease of native coronary artery without angina pectoris; E78.5 Hyperlipidemia, unspecified; I13.0 Hypertensive heart and chronic kidney disease with heart failure and stage 1 through stage 4 chronic kidney disease, or unspecified chronic kidney disease; N18.9 Chronic kidney disease, unspecified; I50.23 Acute on chronic systolic (congestive) heart failure | CPT/HCPCS: 99214 ==

== ENCOUNTER 2022-11-20 15:23 | Outpatient (CLI) | payer MEDICARE, OTHER, SELFPAY ==
[2022-11-20 16:20] LABS: Anion Gap 17.2 (5-19); Blood Urea Nitrogen 23 mg/dL (8-23); Calcium 8.8 mg/dL (8.5-10.5); Carbon Dioxide 20 mmol/L (22-29); Chloride 106 mmol/L (98-107); Glucose 99 mg/dL (65-115); Osmolality Calculated 290 mOsm/kg (285-295); Potassium 5.2 mmol/L (3.5-5.1); Sodium 138 mmol/L (136-145)
== END 2022-11-20 15:24 | disposition home or self-care (01) ==
LOC: LAB 15:23
PROVIDERS: PCP Family Medicine; Visit Provider Family Medicine
DX: E87.6 Hypokalemia (principal); N18.9 Chronic kidney disease, unspecified
CPT/HCPCS: 80048

== ENCOUNTER 2022-11-26 10:59 | Outpatient (CLI) | payer MEDICARE, OTHER, SELFPAY ==
[2022-11-26 11:40] LABS: Anion Gap 13.4 (5-19); Blood Urea Nitrogen 28 mg/dL (8-23); Calcium 8.9 mg/dL (8.5-10.5); Carbon Dioxide 25 mmol/L (22-29); Chloride 106 mmol/L (98-107); Glucose 107 mg/dL (65-115); Osmolality Calculated 296 mOsm/kg (285-295); Potassium 4.4 mmol/L (3.5-5.1); Sodium 140 mmol/L (136-145)
== END 2022-11-26 11:00 | disposition home or self-care (01) ==
LOC: LAB 10:59
PROVIDERS: PCP Family Medicine; Visit Provider Family Medicine
DX: E87.6 Hypokalemia (principal); N18.9 Chronic kidney disease, unspecified
CPT/HCPCS: 80048

== ENCOUNTER 2022-12-10 10:48 | Outpatient (CLI) | payer MEDICARE, OTHER, SELFPAY ==
[2022-12-10 11:22] LABS: Anion Gap 13.7 (5-19); Blood Urea Nitrogen 22 mg/dL (8-23); Carbon Dioxide 26 mmol/L (22-29); Chloride 102 mmol/L (98-107); Glucose 103 mg/dL (65-115); Osmolality Calculated 288 mOsm/kg (285-295); Potassium 4.7 mmol/L (3.5-5.1); Sodium 137 mmol/L (136-145)
== END 2022-12-10 10:49 | disposition home or self-care (01) ==
LOC: LAB 10:49
PROVIDERS: PCP Family Medicine; Visit Provider Family Medicine
DX: E87.6 Hypokalemia (principal); N18.9 Chronic kidney disease, unspecified
CPT/HCPCS: 80048

== ENCOUNTER 2022-12-10 18:44 | Emergency (ER) | payer MEDICARE, OTHER, SELFPAY ==
--- NOTE | 2022-12-10 18:47 | ECG_ITS ---
[facility] Test Date: 2022-12-10 Pat Name: Jesus Saucedo Department: Room: Gender: Male Md Psychiatry: : 1935 Requested By: Jose Eduardo Christensen Order Number: [id number] Anders MD: Ayaan Sen M.D. Measurements Intervals [place] Rate: 82 P: 138 OR: 298 QRS: 13 QRSD: 141 T: 39 QT: 433 QTc: 508 Interpretive Statements ELECTRONIC VENTRICULAR PACEMAKER Compared to ECG 10/29/2022 02:41:09 Sinus bradycardia no longer present First degree AV block no longer present Intraventricular conduction delay no longer present Electronically Signed On 12-11-2022 10:28:38 CDT by Ayaan Sen M.D. [id number]
--- NOTE | 2022-12-10 18:47 | XRR_ITS ---
PROCEDURE INFORMATION: Exam: XR Chest Exam date and time: 12/10/2022 7:03 PM Age: 86 years old Clinical indication: Pain; Chest pressure; Additional info: Chest pain TECHNIQUE: Imaging protocol: Radiologic exam of the chest. Views: 1 view. COMPARISON: CR (CHEST, ) 10/28/2022 7:44 PM FINDINGS: Tubes, catheters and devices: Unchanged left chest pacemaker. Lungs: Unremarkable. No consolidation. Pleural spaces: Trace bilateral pleural effusions. Heart/Mediastinum: Unremarkable. No cardiomegaly. Bones/joints: Thoracic spinal fusion changes are again present. XR/XR chest 1V portable [id number] IMPRESSION: Trace bilateral pleural effusions. No acute findings.
--- NOTE | 2022-12-10 18:47 | ED_ITS ---
HPI - Chest Pain General: Chief Complaint: Chest Pain Stated Complaint: chest discomfort Time Seen by Provider: 12/10/22 18:47 History of Present Illness: 86-year-old male patient comes in today for complaints of mild shortness of breath, chest discomfort, and tremors. Patient has a chronic tremor that worsens at times. Patient does not know a diagnosis for the tremor. Patient d oes get routine physical therapy. Patient lives at home with a daughter. Patient reports he felt well until this evening when he started having the shortness of breath along with his increasing tremors. Patient appears nontoxic. Patient denies any fever. Patient is alert and responsive to quest ions. MD complaint: chest discomfort Onset (ago): hour(s) Pain radiation: none Severity: mild Associated symptoms: Reports dyspnea; Deny fever(s), nausea or vomiting Review of Systems General: Reports: 10 or more systems reviewed and unremarkable except in HPI and below Const: Denies: fever(s) Card: Reports: chest pain Resp: Reports: dyspnea GI: Denies: nausea or vomiting : Denies: difficulty urinating Musc: Denies: neck pain Skin/Breast: Denies: rash Neuro: Denies: headache(s) PFSH ED PFSH: Medical History Acute diastolic (congestive) heart failure Acute RI Acute non-ST elevation myocardial infarction (NSTEMI) Acute on chronic systolic heart failure Anemia Anemia Atherosclerosis of coronary artery of [place] heart without angina pectoris Atrial fibrillation CAD (coronary artery disease) Cardiomyopathy History of ischemic cardiomyopathy, do not need revascularization, continue optimal medical regimen Chronic kidney disease Coronary artery disease Coronary artery disease Defibrillator discharge Hyperlipidemia Hypertension Well-controlled Hypokalemia Sustained VT (ventricular tachycardia) Continue current regimen including beta-ashley, amiodarone. Appear to be stable not in VT anymore. Can be discharged home. Syncope Tubular adenoma of colon V-tach Ventricular tachycardia Ventricular tachycardia Wide-complex tachycardia Surgical History History of back surgery History of cardiac defibrillator placement Status post implantation of automatic cardioverter/defibrillator (AICD) Stented coronary artery Family History Mother No problems noted. Father No problems noted. Other CAD (coronary artery disease) Social History Smoking and tobacco status: never smoked Alcohol intake: never Substance/Drug Use: never Adopted: No Caregiver/support person: Yes Housing: Skilled Nursing Marital status: / Current occupational status: retired Physical Exam Const: COMMON NORMALS: alert HENMT: COMMON NORMALS: normocephalic HEAD & SCALP: normocephalic Resp: COMMON NORMALS: normal respiratory effort and clear to auscultation bilaterally AUSCULTATION: clear to auscultation bilaterally Cardio: COMMON NORMALS: regular rate RATE: regular rate GI: COMMON NORMALS: Soft to palpation and non-tender PALPATION: Yes Soft to palpation Extremity: COMMON NORMALS: full ROM NARRATIVE EXTREMITY EXAM: Bilateral mild pedal edema Neuro: SENSORIUM/ORIENTATION: Yes alert Skin: NARRATIVE SKIN EXAM: Flushed face, patchy dry skin rash Course Vital Signs: Vital signs: Vital Signs Temperature 98.7 F 12/10/22 18:57 Pulse Rate 61 12/10/22 18:57 Respiratory Rate 19 H 12/10/22 18:57 Blood Pressure 154/74 12/10/22 18:57 Pulse Oximetry 97 12/10/22 18:57 Oxygen Delivery Me thod Room Air 12/10/22 18:57 MDM - Chest Pain Medical Decision Making Patient comes in today with some shortness of breath, mild chest discomfort, and dizziness. Patient also reports increased shaking. Patient appears to have chronic tremor and this is verified by his family. Patient does have chronic CHF. On exam patient has clear lung sounds except for some decreased sounds in the bases. Patient does have bilateral pedal edema. Vital signs note some elevation in blood pressure. Differential diagnosis includes ACS, stroke syndrome, CHF, anxiety. Chest x-ray noted some mild bilateral pleural effusions. BNP was elevated at 546. High-sensitivity troponin seem to be stable in the 20s. Patient had no episodes of hypotension that family reports that they have been noticing lately. Labs and x-ray and exam points to some mild CHF. Patient was given 40 mg of IV Lasix x1. Family reports that they had been instructed to stop the bumetanide per Dr. Lynn. I recommended that they continue at least once a day and along with his potassium. Recommend recheck labs in 1 week. And follow-up with Dr. Lynn in 1 week. Family reported understanding and need for follow-up or return to the ER for worsening symptoms. Lab Data 12/10/22 19:00 12/10/22 19:00 Radiology Impressions Chest X-Ray 12/10/22 18:47 IMPRESSION: Trace bilateral pleural effusions. No acute findings. Head CT 12/10/22 18:53 IMPRESSION: No acute intracranial abnormality. Laboratory Results WBC 6.1 10^3/uL (4.0-10.0) 12/10/22 19:00 RBC 3.57 10^6/uL (4.1-5.3) L 12/10/22 19:00 Hgb 11.2 g/dL (11.7-16.6) L 12/10/22 19:00 Hct 34.4 % (42.0-52.0) L 12/10/22 19:00 MCV 96.4 fl (80-94) H 12/10/22 19:00 MCH 31.4 pg (28.0-34.0) 12/10/22 19:00 MCHC 32.6 g/dL (30.0-36.0) 12/10/22 19:00 RDW 14.9 % (12.1-15.1) 12/10/22 19:00 Plt Count 169 10^3/cmm (130-400) 12/10/22 19:00 MPV 9.4 fL (7.4-10.4) 12/10/22 19:00 Neut % (Auto) 38.2 % 12/10/22 19:00 Lymph % (Auto) 38.3 % 12/10/22 19:00 [place] % (Auto) 15.0 % 12/10/22 19:00 Eos % (Auto) 7.6 % 12/10/22 19:00 Baso % (Auto) 0.7 % 12/10/22 19:00 Neut # (Auto) 2.33 10^3/uL (1.8-7.7) 12/10/22 19:00 Lymph # (Auto) 2.3 10^3/uL (0.8-4.8) 12/10/22 19:00 [place] # (Auto) 0.9 10^3/uL (0.2-0.9) 12/10/22 19:00 Eos # (Auto) 0.5 10^3/uL (0.0-0.8) 12/10/22 19:00 Baso # (Auto) 0.0 10^3/uL (0.0-0.1) 12/10/22 19:00 Nucleated RBC % (auto) 0 % 12/10/22 19:00 Nucleated RBCs # 0.0 /100WBC 12/10/22 19:00 Sodium 137 mmol/L (136-145) 12/10/22 19:00 Potassium 4.0 mmol/L (3.5-5.1) 12/10/22 19:00 Chloride 102 mmol/L (98-107) 12/10/22 19:00 Carbon Dioxide 24 mmol/L (22-29) 12/10/22 19:00 Anion Gap 15.0 (5-19) 12/10/22 19:00 BUN 24 mg/dL (8-23) H 12/10/22 19:00 Creatinine 1.7 mg/dL (0.7-1.2) H 12/10/22 19:00 GFR Calculation Not Reportable 12/10/22 19:00 Glucose 113 mg/dL (65-115) 12/10/22 19:00 Calculated Osmolality 289 mOsm/kg (285-295) 12/10/22 19:00 Calcium 8.8 mg/dL (8.5-10.5) 12/10/22 19:00 Total Bilirubin 0.4 mg/dL (0.15-1.2) 12/10/22 19:00 AST 82 U/L (0-40) H 12/10/22 19:00 ALT 73 U/L (0-41) H 12/10/22 19:00 Alkaline Phosphatase 95 U/L (40-130) 12/10/22 19:00 Troponin T Baseline 28 ng/L (0-15) H 12/10/22 19:00 NT-Pro-B Natriuret Pep 520 pg/mL (0-450) H 12/10/22 19:00 Total Protein 6.7 g/dL (6.6-8.7) 12/10/22 19:00 Albumin 3.8 g/dL (3.5-5.2) 12/10/22 19:00 Globulin 2.9 g/dL (1.3-4.6) 12/10/22 19:00 Lipase 37 U/L (13-60) 12/10/22 19:00 EKG Data EKG 1: EKG interpretation date: 12/10/22 EKG interpretation time: : Prior EKG tracings: not available for review Interpretation: EKG shows a electrical ventricular paced rhythm with a regular rate at [address] elevation is noted. No available prior EKGs for comparison. Discharge Plan Discharge Patient Disposition: Home Clinical Impression: Acute dyspnea CHF (congestive heart failure) Qualifiers: Heart failure type: unspecified Heart failure chronicity: chronic Qualified Code(s): I50.9 - Heart failure, unspecified Condition: Stable Prescriptions: No Action acetaminophen [Tylenol Extra Strength] 500 mg tablet 500 mg PO Q6H PRN (Reason: Pain) lidocaine [Salonpas (lidocaine)] 4 % adhesive patch,medicated 1 patch topical DAILY PRN (Reason: Pain) bumetanide 1 mg tablet 1 mg PO BID clopidogrel 75 mg tablet 75 mg PO QAM Qty: 90 3RF Hold Instructions: Resume on 06/06/22. metoprolol tartrate 25 mg tablet 12.5 mg PO BID Qty: 60 3RF nitroglycerin 0.4 mg tablet, sublingual 0.4 mg sublingual Q5MIN PRN (Reason: Chest Pain) rosuvastatin 40 mg tablet 40 mg PO BEDTIME Centrum Silver 400-250 mcg Tablet,Chewable 1 tab PO DAILY levothyroxine 75 mcg tablet 75 mcg PO QAM hydrocodone-acetaminophen 5-325 mg tablet 1 tab PO Q6H PRN (Reason: pain) Qty: 14 0RF melatonin 5 mg Tablet,Disintegrating 5 mg PO BEDTIME Klor-Con M20 20 mEq Tablet,Er Particles/Crystals 60 meq PO BID 30 Days Qty: 180 3RF albuterol sulfate 90 mcg/actuation HFA aerosol inhaler 2 puff INHALATION Q6H PRN (Reason: Shortness Of Breath) amiodarone 200 mg tablet 200 mg PO BID Qty: 180 3RF ferrous sulfate [Feosol] 325 mg (65 mg iron) tablet 325 mg PO DAILY Qty: 90 1RF polyethylene glycol 3350 [Miralax] 17 gram/dose powder 4 g PO DAILY PRN (Reason: constipation) Qty: 119 0RF Discharge Orders: Discharge ED (Routine); Ordered 12/10/22 Ordered By: Jose Eduardo Schwartz Referrals: Gene Peralta [Primary Care Provider] - Discharge Diet: Usual diet Discharge Activity: Increase activity as tolerated Patient Instructions: Heart Failure (ED) Activity Restrictions/Additional Instructions: Continue bumetanide 1 mg daily. Continue potassium as scheduled. Healthy diet and exercise. Follow-up with primary care in 1 week. Return to ED for worsening symptoms such as high fever greater than 100.4, severe chest pain, increasing shortness of breath. 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
--- NOTE | 2022-12-10 18:53 | CTR_ITS ---
PROCEDURE INFORMATION: Exam: CT Head Without Contrast Exam date and time: 12/10/2022 7:11 PM Age: 86 years old Clinical indication: Dizziness TECHNIQUE: Imaging protocol: Computed tomography of the head without contrast. Radiation optimization: All CT scans at this facility use at least one of these dose optimization techniques: automated exposure control; mA and/or kV adjustment per patient size (includes targeted exams where dose is matched to clinical indication); or iterative reconstruction. REPORTING DATA: Count of CT and Cardiac NM exams in prior 12 months: This patient has received 8 known CTs and 0 known cardiac nuclear medicine studies in the 12 months prior to the current study. COMPARISON: CT head wo con* [id number] 10/28/2022 8:32 PM RADIATION DOSE METRICS: Total DLP (mGy-cm): 882.86 FINDINGS: Brain: No acute infarct. No hemorrhage. Unchanged mild volume loss of the brain. Unremarkable white matter for age. No mass effect. Cerebral ventricles: No ventriculomegaly. Paranasal sinuses: Scattered paranasal sinus mucosal thickening, without air-fluid level present. Mastoid air cells: Visualized mastoid air cells are well aerated. Bones/joints: Unremarkable. No acute fracture. Soft tissues: Unremarkable. CT/CT head wo con* [id number] IMPRESSION: No acute intracranial abnormality.
[2022-12-10 18:57] VITALS: BP 154/74; PULSE 61; RESP 19; TEMP 37.1; O2SAT 97; BMI 26.4
[2022-12-10 19:01] VITALS: BP 156/73; PULSE 69; RESP 17; O2SAT 96
[2022-12-10 19:10] LABS: Basophils % 0.7 %; Eosinophils # 0.5 10^3/uL (0.0-0.8); Eosinophils % 7.6 %; Hematocrit 34.4 % (42.0-52.0); Hemoglobin 11.2 g/dL (11.7-16.6); Lymphocytes # 2.3 10^3/uL (0.8-4.8); Lymphocytes % 38.3 %; Mean Corpuscular HGB Conc 32.6 g/dL (30.0-36.0); Mean Corpuscular Hemoglobin 31.4 pg (28.0-34.0); Mean Corpuscular Volume 96.4 fl (80-94); Mean Platelet Volume 9.4 fL (7.4-10.4); Monocytes # 0.9 10^3/uL (0.2-0.9); Neutrophils # 2.33 10^3/uL (1.8-7.7); Neutrophils % 38.2 %; Nucleated Red Blood Cells % 0 %; Platelet Count 169 10^3/cmm (130-400); Red Blood Count 3.57 10^6/uL (4.1-5.3); Red Cell Distribution Width 14.9 % (12.1-15.1); White Blood Count 6.1 10^3/uL (4.0-10.0)
[2022-12-10 19:29] LABS: Troponin(5th) Baseline 28 ng/L (0-15)
[2022-12-10 19:36] LABS: Alanine Aminotransferase 73 U/L (0-41); Albumin Level 3.8 g/dL (3.5-5.2); Alkaline Phosphatase 95 U/L (40-130); Aspartate Amino Transferase 82 U/L (0-40); Blood Urea Nitrogen 24 mg/dL (8-23); Calcium 8.8 mg/dL (8.5-10.5); Carbon Dioxide 24 mmol/L (22-29); Chloride 102 mmol/L (98-107); Globulin 2.9 g/dL (1.3-4.6); Glucose 113 mg/dL (65-115); Lipase 37 U/L (13-60); NT Pro B Type Natriuretic Pept 520 pg/mL (0-450); Osmolality Calculated 289 mOsm/kg (285-295); Sodium 137 mmol/L (136-145); Total Bilirubin 0.4 mg/dL (0.15-1.2); Total Protein 6.7 g/dL (6.6-8.7)
[2022-12-10 20:01] VITALS: BP 170/87; PULSE 73; RESP 16; O2SAT 96
[2022-12-10] MEDS: meclizine 25 mg tablet PO (20:20)
[2022-12-10] MEDS: FUROsemide 10 mg/mL SDV 4mL 40 MG IVP (20:20)
[2022-12-10 20:30] VITALS: BP 166/83; PULSE 74; RESP 18; O2SAT 95
--- NOTE | 2022-12-10 20:55 | ECG_ITS ---
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 Measurements Intervals [place] Rate: 74 P: 48 ID: [id number] QRS: -1 QRSD: 142 T: 70 QT: 454 QTc: 505 Interpretive Statements SINUS RHYTHM WITH FIRST DEGREE AV BLOCK WITH OCCASIONAL VENTRICULAR PREMATURE COMPLEXES INTRAVENTRICULAR CONDUCTION DELAY [130+ ms QRS DURATION] Compared to ECG 12/10/2022 18:57:02 Ventricular premature complex(es) now present First degree AV block now present Intraventricular conduction delay now present Ventricular-paced complex(es) or rhythm no longer present Electronically Signed On 12-11-2022 10:29:30 CDT by Ayaan Sen M.D. [id number]
[2022-12-10 21:00] VITALS: BP 155/72; PULSE 73; RESP 18; O2SAT 95
[2022-12-11 01:34] VITALS: BP 149/79; PULSE 73; RESP 18; O2SAT 96
== END 2022-12-10 21:19 | disposition home or self-care (01) ==
PROVIDERS: Emergency Provider Nurse Practitioner Family; PCP Family Medicine
DX: I13.0 Hypertensive heart and chronic kidney disease with heart failure and stage 1 through stage 4 chronic kidney disease, or unspecified chronic kidney disease (principal); I50.9 Heart failure, unspecified; N18.9 Chronic kidney disease, unspecified; R06.00 Dyspnea, unspecified; I25.10 Atherosclerotic heart disease of native coronary artery without angina pectoris
CPT/HCPCS: 70450; 71045; 80053; 83690; 83880; 84484; 85025; 93005; 96374; 99285; J1940; J8597

== ENCOUNTER 2022-12-17 11:24 | Outpatient (CLI) | payer MEDICARE, OTHER, SELFPAY ==
[2022-12-17 12:36] LABS: Anion Gap 12.6 (5-19); Blood Urea Nitrogen 22 mg/dL (8-23); Carbon Dioxide 21 mmol/L (22-29); Chloride 107 mmol/L (98-107); Glucose 120 mg/dL (65-115); Osmolality Calculated 287 mOsm/kg (285-295); Potassium 4.6 mmol/L (3.5-5.1); Sodium 136 mmol/L (136-145)
== END 2022-12-17 11:25 | disposition home or self-care (01) ==
LOC: LAB 11:25
PROVIDERS: PCP Family Medicine; Visit Provider Family Medicine
DX: E87.6 Hypokalemia (principal); N18.9 Chronic kidney disease, unspecified
CPT/HCPCS: 80048

== ENCOUNTER → 2022-12-24 10:19 | Outpatient (BNVA) | payer MEDICARE, OTHER, SELFPAY | PROVIDERS: PCP Family Medicine; Visit Provider Orthopaedic Surgery | DX: Z98.1 Arthrodesis status (principal) | CPT/HCPCS: 99213 ==

== ENCOUNTER 2023-01-26 07:05 | Inpatient (IN) | payer MEDICARE, OTHER, SELFPAY ==
[2023-01-26] VITALS (123 sets, daily range): BP systolic 71–136; BP diastolic 45–76; PULSE 49–150; RESP 13–28; TEMP 35.9–37.4; O2SAT 91–100
--- NOTE | 2023-01-26 07:09 | XRR_ITS ---
PROCEDURE INFORMATION: Exam: XR Chest Exam date and time: 01/26/2023 7:49 AM Age: 87 years old Clinical indication: Device placement; Ng tube; Additional info: Chest pain ng tube and ett placement TECHNIQUE: Imaging protocol: Radiologic exam of the chest. Views: 1 view. COMPARISON: CR (CHEST, ) 12/10/2022 7:03 PM FINDINGS: Tubes, catheters and devices: Endotracheal tube and nasogastric tube in satisfactory position. Lungs: Unremarkable. No consolidation. Pleural spaces: Small left pleural effusion Heart/Mediastinum: Cardiomegaly. Bones/joints: Postop surgical changes thoracic spine. XR/XR chest 1V portable [id number] IMPRESSION: 1. Endotracheal tube and nasogastric tube are in satisfactory position. 2. Cardiomegaly with small left pleural effusion
--- NOTE | 2023-01-26 07:12 | ECG_ITS ---
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 Measurements Intervals [place] Rate: 154 P: 0 [place]: 0 QRS: -59 QRSD: 251 T: 125 QT: 363 QTc: 582 Interpretive Statements Ventricular tachycardia Compared to ECG 12/10/2022 20:55:03 ST (T wave) deviation now present Sinus rhythm no longer present First degree AV block no longer present Electronically Signed On 01-26-2023 17:34:49 CDT by Ayaan Sen M.D. [id number]
[2023-01-26] MEDS: vecuronium 10 mg SDV IVP (07:24)
[2023-01-26] MEDS: etomidate 2 mg/mL INJ SDV 10 mL 20 MG IVP ×2 (07:24→08:19)
--- NOTE | 2023-01-26 07:27 | ECG_ITS ---
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 Measurements Intervals [place] Rate: 117 P: 230 [place]: 140 QRS: 270 QRSD: 242 T: 0 QT: 423 QTc: 591 Interpretive Statements Ventricular tachycardia RIGHT AXIS DEVIATION [QRS AXIS > 100] Electronically Signed On 01-26-2023 17:40:44 CDT by Ayaan Sen M.D. [id number]
--- NOTE | 2023-01-26 07:32 | ECG_ITS ---
[facility] Test Date: 2023-01-26 Pat Name: Jesus Saucedo Department: Room: Gender: Male Alum Mixer: : 1935 Requested By: Jayant Leavitt Order Number: [id number] Anders MD: Ayaan Sen M.D. Measurements Intervals [place] Rate: 99 P: 0 RI: 0 QRS: -30 QRSD: 152 T: 129 QT: 382 QTc: 491 Interpretive Statements UNCERTAIN REGULAR RHYTHM BORDERLINE LEFT AXIS DEVIATION [QRS AXIS < -20] INTRAVENTRICULAR CONDUCTION DELAY [130+ ms QRS DURATION] INTERPRETATION BASED ON A DEFAULT AGE OF 40 YEARS Compared to ECG 01/26/2023 07:27:02 Intraventricular conduction delay now present Sinus tachycardia no longer present Right-axis deviation no longer present Right bundle-branch block no longer present ST (T wave) deviation no longer present Myocardial infarct finding no longer present Electronically Signed On 01-26-2023 17:33:32 CDT by Ayaan Sen M.D. [id number] f
[2023-01-26 07:34] LABS: ABG PCO2 42.4 mmHg (35-45); ABG PH Result 7.28 (7.35-7.45); Arterial Blood Gas Hematocrit 38.3 % (42-52); Base Excess ABG -6.7 mmol/L (-2.0-2.0); Blood Gas Allen Test Pos; Blood Gas Operator Identificat WALCI; Blood Gas Sample Site Radial, left; Blood Gas Sample Type Arterial; Carboxyhemoglobin 1.1 %THgb (0.4-20.1); HCO3 ABG 19.8 mmol/L (22-26); Ionized Calcium Level - ABG 1.3 mmol/L (1.1-1.4); Methemoglobin 0.9 % (0.4-1.5); Oxygen Device AMBU; Potassium Level - ABG 4.3 mmol/L (3.5-5.0); Total Hemoglobin 12.5 g/dL (14-18)
[2023-01-26] MEDS: DOPamine drip 400 MG/250 ML PREMIX 14.46 MG IV (07:40)
[2023-01-26] MEDS: midazolam 1 mg/mL INJ 2 mL 2 MG ×2 (07:45→08:15)
[2023-01-26] MEDS: heparin 5,000 unit/mL INJ 1 mL 4000 UNIT INJECTION (08:04)
[2023-01-26] MEDS: clopidogrel 300 mg Tablet PO (08:05)
[2023-01-26] MEDS: aspirin 81 mg Chew Tablet 324 MG PO (08:05)
--- NOTE | 2023-01-26 08:05 | PC.NURSE ---
TOYIN VERBALIZED 4MG VERSED NEEDED. NURSE OVER CARLOS VALENZUELA FOR VERSED.
--- NOTE | 2023-01-26 08:29 | XRR_ITS ---
PROCEDURE INFORMATION: Exam: XR Chest Exam date and time: 01/26/2023 8:33 AM Age: 87 years old Clinical indication: Device placement; Other: Central line insertion TECHNIQUE: Imaging protocol: Radiologic exam of the chest. Views: 1 view. COMPARISON: CR XR chest 1V portable [id number] 01/26/2023 7:49 AM FINDINGS: Tubes, catheters and devices: Endotracheal tube and nasogastric tube are in satisfactory position. Right IJ central venous catheter tip is in the cavoatrial region. Lungs: Unremarkable. No consolidation. Pleural spaces: Unremarkable. No pleural effusion. No pneumothorax. Heart/Mediastinum: Unremarkable. No cardiomegaly. Bones/joints: Unremarkable. XR/XR chest 1V portable [id number] IMPRESSION: Right IJ central venous catheter tip at the cavoatrial junction. No pneumothorax.
[2023-01-26 08:32] LABS: Basophils # 0.1 10^3/uL (0.0-0.1); Basophils % 0.3 %; Eosinophils # 0.3 10^3/uL (0.0-0.8); Eosinophils % 1.1 %; Hematocrit 32.5 % (42.0-52.0); Hemoglobin 10.4 g/dL (11.7-16.6); Lymphocytes # 3.9 10^3/uL (0.8-4.8); Lymphocytes % 17.7 %; Monocytes # 1.3 10^3/uL (0.2-0.9); Monocytes % 5.8 %; Neutrophils # 15.84 10^3/uL (1.8-7.7); Neutrophils % 72.4 %; Nucleated Red Blood Cells % 0 %; Platelet Count 182 10^3/cmm (130-400); Red Blood Count 3.25 10^6/uL (4.1-5.3); Red Cell Distribution Width 13.9 % (12.1-15.1); White Blood Count 21.9 10^3/uL (4.0-10.0)
[2023-01-26 08:44] LABS: ABG PCO2 34.1 mmHg (35-45); ABG PH Result 7.38 (7.35-7.45); Alveolar-Arterial Oxygen Gradi 28.4 mmHg (5-10); Arterial Blood Gas Hematocrit 32.2 % (42-52); Base Excess ABG -4.4 mmol/L (-2.0-2.0); Blood Gas Allen Test Pos; Blood Gas Operator Identificat WALCI; Blood Gas Sample Site Radial, left; Blood Gas Sample Type Arterial; Carboxyhemoglobin 0.9 %THgb (0.4-20.1); HCO3 ABG 20.1 mmol/L (22-26); Ionized Calcium Level - ABG 1.2 mmol/L (1.1-1.4); Methemoglobin 0.8 % (0.4-1.5); Oxygen Device VENT; Oxygen Saturation ABG > 100.0; Potassium Level - ABG 3.8 mmol/L (3.5-5.0); Total Hemoglobin 10.5 g/dL (14-18)
[2023-01-26 08:45] LABS: Blood Gas Tidal Volume 0.45
[2023-01-26] MEDS: heparin drip 25,000 UNIT/500 ML PREMIX 22 UNIT IV (08:46)
[2023-01-26 08:56] LABS: Troponin(5th) Baseline 67 ng/L (0-15)
[2023-01-26 08:57] LABS: Alanine Aminotransferase 47 U/L (0-41); Albumin Level 3.1 g/dL (3.5-5.2); Alkaline Phosphatase 85 U/L (40-130); Blood Urea Nitrogen 25 mg/dL (8-23); Calcium 8.3 mg/dL (8.5-10.5); Carbon Dioxide 20 mmol/L (22-29); Chloride 106 mmol/L (98-107); Glucose 169 mg/dL (65-115); Osmolality Calculated 296 mOsm/kg (285-295); Sodium 139 mmol/L (136-145); Total Bilirubin 0.3 mg/dL (0.15-1.2); Total Protein 6.1 g/dL (6.6-8.7)
[2023-01-26 08:58] LABS: Anion Gap 16.7 (5-19); Potassium 3.7 mmol/L (3.5-5.1)
--- NOTE | 2023-01-26 08:58 | P.HP_ITS ---
Providers/Chief Complaint Admitting Physician: Emmanuel Villarreal MD Primary Care Provider: Gene Peralta Chief Complaint: chest pain/SOB History of Present Illness Jesus Saucedo is a 87 year old male with history of ischemic cardiomyopathy, recurrent ventricular tachycardia, pacemaker/defibrillator who presented to the emergency department with complaints of chest discomfort. He was alert upon presentation during his evaluation, he was found to be in ventricular tachycardi a with a pulse. Rate was approximately 150. His defibrillator did not fire. He was decompensating, therefore cardioversion was attempted in the emergency department. With this he went into pulseless ventricular tachycardia. From my understanding he received CPR, a dose of epinephrine, amiodarone, and defibrillation. With these interventions ROSC was achieved. He was intubated, and central line placed. Infiltration of IV occurred in his left upper extremity. Unfortunately, I have not been able to talk with family yet regarding history of proceeding his arrival to the emergency department. Review of Systems General: Reports: ROS unobtainable due to endotracheal tube Medications/Allergies Home Medications Medication Instructions Recorded Confirmed Last Taken Type nitroglycerin 0.4 mg sublingual 0.4 mg sublingual Q5MIN PRN Chest 04/12/21 12/24/22 Unknown History tablet Pain rosuvastatin 40 mg tablet 40 mg PO BEDTIME 04/12/21 12/24/22 10/27/22 21:00 History multivit with min-folic 1 tab PO DAILY 04/25/21 12/24/22 10/28/22 08:00 History acid-lutein 400 mcg-250 mcg chewable tablet (Centrum Silver) acetaminophen 500 mg tablet 500 mg PO Q6H PRN Pain 05/21/21 12/24/22 10/27/22 History (Tylenol Extra Strength) levothyroxine 75 mcg tablet 75 mcg PO QAM 03/02/22 12/24/22 10/28/22 History 0700 albuterol sulfate 90 mcg/actuation 2 puff inhalation Q6H PRN 03/04/22 12/24/22 10/25/22 History aerosol inhaler Shortness Of Breath lidocaine 4 % topical patch 1 patch topical DAILY PRN Pain 04/13/22 12/24/22 Unknown History (Salonpas (lidocaine)) clopidogrel 75 mg tablet 75 mg PO QAM #90 tabs 05/11/22 12/24/22 10/28/22 08:00 Rx hydrocodone 5 mg-acetaminophen 325 1 tab PO Q6H PRN pain #14 tabs 07/06/22 12/24/22 10/13/22 Rx mg tablet ferrous sulfate 325 mg (65 mg 325 mg PO DAILY #90 tabs 07/11/22 12/24/22 10/28/22 Rx iron) tablet (Feosol) 0800 polyethylene glycol 3350 17 4 g PO DAILY PRN constipation #119 07/11/22 12/24/22 Unknown Rx gram/dose oral powder (Miralax) grams melatonin 5 mg disintegrating 5 mg PO BEDTIME 10/28/22 12/24/22 10/27/22 21:00 History tablet potassium chloride 20 mEq 60 meq PO BID 30 days #180 tabs 10/31/22 12/24/22 Unknown Rx tablet,extended release(part/cryst) (Klor-Con M) metoprolol tartrate 25 mg tablet 12.5 mg PO BID #60 tabs 11/17/22 12/24/22 Unknown Rx bumetanide 1 mg tablet 1 mg PO BID 11/18/22 12/24/22 Unknown History amiodarone 200 mg tablet 200 mg PO BID #180 tabs 01/11/23 Unknown Rx Allergies Allergy/AdvReac Type Severity Reaction Status Date / Time JACKIE Inhibitors Allergy Unknown Unknown Verified 12/24/22 10:20 Latex, Natural Rubber Allergy Unknown ALGY-Rash Verified 12/24/22 10:20 aspirin Allergy ALGY-Hives Verified 12/24/22 10:20 PFSH Acute PFSH: Medical History (Updated 01/26/23 @ 10:07 by Emmanuel Villarreal MD) Acute diastolic (congestive) heart failure Acute RI Acute non-ST elevation myocardial infarction (NSTEMI) Acute on chronic systolic heart failure Anemia Anemia Atherosclerosis of coronary artery of [place] heart without angina pectoris Atrial fibrillation CAD (coronary artery disease) Cardiomyopathy History of ischemic cardiomyopathy, do not need revascularization, continue optimal medical regimen Chronic kidney disease Coronary artery disease Coronary artery disease Defibrillator discharge Hyperlipidemia Hypertension Well-controlled Hypokalemia Sustained VT (ventricular tachycardia) Continue current regimen including beta-ashley, amiodarone. Appear to be stable not in VT anymore. Can be discharged home. Syncope Tubular adenoma of colon V-tach Ventricular tachycardia Ventricular tachycardia Wide-complex tachycardia Surgical History History of back surgery History of cardiac defibrillator placement Status post implantation of automatic cardioverter/defibrillator (AICD) Stented coronary artery Family History Mother No problems noted. Father No problems noted. Other CAD (coronary artery disease) Social History Smoking and tobacco status: never smoked Alcohol intake: never Substance/Drug Use: never Adopted: No Caregiver/support person: Yes Housing: Intermediate Marital status: / Current occupational status: retired Vitals/I&O/Wt Last Vital Signs Pulse 150 H 01/26/23 07:28 Resp 14 01/26/23 08:48 FiO2 100 01/26/23 08:48 01/25/23 01/26/23 01/26/23 22:59 06:59 14:59 Intake Total 123.311 / 123.311 Balance 123.311 / 123.311 Weight last 48 hrs Weight 86.183 kg Weight 77.111 kg Physical Exam Narrative: General exam is an intubated and sedated white male. HEENT: Atraumatic and normocephalic. Pupils equally round. Endotracheal tube noted. Oropharyngeal tube noted. Neck is supple no lymphadenopathy or thyromegaly. Central line noted right side. Cardiovascular regular rhythm, bradycardic. I cannot auscultate a murmur. Lungs clear no wheezing or crackles Abdomen soft with positive bowel sounds exam is deferred Extremities no cyanosis clubbing, 2+ edema noted. Cap refill brisk Skin no rash Neuro: Sedated on ventilator Data 01/26/23 08:24 01/26/23 08:24 Other Labs: Multiple EKGs reviewed. Last EKG demonstrates a paced ventricular rhythm, bradycardic in the 50s. I reviewed this Previous echocardiogram in August 2022 demonstrated EF 40%, 3/4 diastolic dysfunction, severe mitral regurgitation and severe pulmonary hypertension. Moderate tricuspid regurg Angiogram 05/25 demonstrated an RCA 70% stenosis in which balloon angioplasty was performed. Moderate disease LAD noted Chest x-ray which I reviewed demonstrates some pulmonary congestion, cardiomegaly, postoperative back surgery, line and endotracheal tube placement adequate. OG tube below diaphragm. Initial ABG with pH 7.28. Repeat ABG has been performed and pH is 7.38, PCO2 34, PO2 443 on the ventilator with PEEP of 5, tidal volume of 450, and FiO2 of 100% CMP reviewed. AST 67, ALT 47. Alk phos, bilirubin normal. Calcium low, appropriate for albumin of 3.1. Initial troponin is 67. A&P Assessment and plan (1) V-tach: Patient presented with ventricular tachycardia. He has had previous similar presentations in the past. Electrolytes at this time are normal including magnesium and TSH Awaiting echocardiogram Cardiology consultation Initiation of amiodarone drip At this point cannot continue patient's home metoprolol secondary to hypotension We will interrogate his pacemaker/defibrillator. Cardiology will determine if settings are adequate. (2) Cardiac arrest: Status postcardiac arrest Currently on 10 of norepinephrine to maintain blood pressure postcardiac arrest in this patient with hypotension Cardiology consultation Electrolytes have been checked and normal Check echocardiogram Neurologic outcome unknown, and will be until sedation can be lessened to see how patient is responding Serial troponins (3) Acute respiratory failure: Patient with acute respiratory failure following cardiac arrest, with inability to maintain airway and significant metabolic acidosis. Currently receiving with support with ventilator. Wean as tolerated (4) KARL (acute kidney injury): Significant acute kidney injury postcode [place] has been placed. Close monitoring of renal output, and repeat creatinine tomorrow. (5) Leukocytosis: Elevation in white blood cell count likely secondary to demargination from stress from code We will go ahead and draw blood culture Monitor for any fever Check urinalysis (6) Elevated troponin: Serial troponins Check echocardiogram Placed on a heparin drip (7) Ischemic cardiomyopathy: Previous echocardiogram demonstrated an EF of around 40%, 3/4 diastolic dysfunction Repeat echocardiogram (8) Chronic systolic (congestive) heart failure: Patient with history of chronic systolic heart failure He has some evidence of lower extremity edema. Will go ahead and check a venous duplex Monitor for fluid overload Plan Multiple other medical problems as outlined in past medical history Full code currently Heparin will suffice for DVT prophylaxis Attestations Medical Necessity Statement*: Will need greater than 2 midniddght stay for management post cardiac arrest, Vtach, resp failure Critical Care Time: The high probability of a clinically significant, sudden or life threatening deterioration of the patient's [cardiac, renal, pulmonary] system(s) required my full and direct attention, intervention and personal management. The critical care time is as shown. This time is in addition to time spent performing any reported procedures but includes the following: [x] Data and vital sign review and interpretation [x] Patient assessment, examination and intervention [x] Documentation [x] Medication orders and management Critical Care Time (min): 75 Coding Level of Care Code Critical Care >/= 30 minutes Critical care time (in minutes): 75 The high probability of a clinically significant, sudden or life threatening deterioration, as referenced in this documentation, required my full and direct attention, intervention and personal management. The critical care time shown is in addition to time spent performing any reported separately billable procedures and includes the following: [x] Data and vital sign review and interpretation [x ] Patient assessment, examination and intervention [x] Medication orders and management [x] Patient/Family updates as able [x] Care Coordination and Documentation. Diagnoses V-tach I47.20 Cardiac arrest I46.9 Acute respiratory failure J96.00 KARL (acute kidney injury) N17.9 Leukocytosis D72.829 Elevated troponin R77.8 Ischemic cardiomyopathy I25.5 Chronic systolic (congestive) heart failure I50.22
[2023-01-26 08:59] LABS: Aspartate Amino Transferase 67 U/L (0-40)
--- NOTE | 2023-01-26 09:13 | USCV_ITS ---
Jesus Saucedo Age: 87 Gender: M : 1935 Exam Date: 01/26/2023 10:23 Ordering Phys: Emmanuel Villarreal MD Technologist: Wai Hodge [place] [facility] [place]: pe BP: 126 / 60 HR: 55 Rhythm: Sinus Technical Quality: Technically difficult study MEASUREMENTS (Male / Female) Normal Values 2D ECHO LV Ejection Fraction MOD 2C 61.6 % LV Ejection Fraction 2C AL 62.3 % DOPPLER AV Peak Velocity 132.0 cm/s LVOT Peak Velocity 55.0 cm/s MV Area PHT 2.4 cm squared Mitral E to A Ratio 2.1 MV E' Velocity 31.0 cm/s Mitral E to MV E' Ratio 9.5 Mitral E to LV E' Lateral Ratio 8.3 Mitral E to LV E' Septal Ratio 11.2 FINDINGS Left Ventricle Grossly normal in size. LV systolic function is moderately reduced with EF of 35 to 40%. Moderate global hypokinesis seen. Right Ventricle Not well visualized Right Atrium Not well visualized Left Atrium Normal in size Mitral Valve Structurally normal mitral valve. Mild mitral regurgitation. Aortic Valve Grossly normal. No significant stenosis. Mild aortic regurgitation. Tricuspid Valve Not well visualized Pulmonic Valve Not well visualized Pericardium Grossly normal Aorta Not well visualized IVC Not well visualized CONCLUSIONS Technically limited quality echocardiogram because of poor ultrasonic windows. LV systolic function is moderately reduced with EF of 35-40% Valvular structures are not well visualized. Mild mitral regurgitation Mild aortic regurgitation. Accurate comparison with prior echocardiogram not possible because of limited visualization however LV systolic function has not changed significantly. Ayaan Sen MD (Electronically Signed) Final Date: 27 January 2023 11:36 S
[2023-01-26 09:49] LABS: Magnesium 2.1 mg/dL (1.7-2.3); Thyroid Stimulating Hormone 1.04 uIU/mL (0.27-4.20)
--- NOTE | 2023-01-26 10:07 | USCV_ITS ---
Jesus Saucedo Age: 87 Gender: M : 1935 Exam Date: 01/26/2023 10:37 Ordering Phys: Emmanuel Villarreal MD Technologist: Wai Hodge Exam Location: [facility] – [place]_ Indication: ? PE PROCEDURES: The venous duplex Doppler examination of both lower extremities was performed in the standard fashion. The following venous structures were evaluated: common femoral vein, profunda vein, proximal portion of the greater saphenous vein, superficial femoral vein, and the popliteal vein. FINDINGS: LT LEG OCCLUDING THROMBUS FROM LT CFV, FEMORAL, POP, PERINEAL DOWN TO LT PTV. THE RT LEG IS NORMAL CONCLUSIONS Occlusive thrombus LEFT common femoral, femoral, popliteal, peroneal, and left PTV. Thrombus GSV above the knee. No evidence of right lower extremity DVT. Notified Dr. Villarreal at time of exam and discussed at 1300 Jay Lemus MD (Electronically Signed) Final Date: 26 January 2023 13:10 S
--- NOTE | 2023-01-26 10:11 | W.ED.SOB ---
HPI - SOB/Dyspnea General: Chief Complaint: Shortness of Breath/Dyspnea Stated Complaint: chest pain/SOB Time Seen by Provider: 01/26/23 07:08 Source: family Mode of arrival: ambulatory History of Present Illness: HPI Narrative: 87-year-old male arrives emergency room with complaint of shortness of breath and shakes . Began yesterday had a couple episodes including one episode he was diaphoretic he denied having any chest pain throughout this whole time however. He was initially being evaluated by the nursing staff and EKG was being done and he went into a sustained ventricular tachycardia see notes below. He was not able to give any further history most of the history of is from the daughter who arrived later in the emergency room MD elicited complaint: shortness of breath Review of Systems General: Reports: ROS unobtainable due to medical condition [facility] ED PFSH: Medical History Acute diastolic (congestive) heart failure Acute PA Acute non-ST elevation myocardial infarction (NSTEMI) Acute on chronic systolic heart failure Anemia Anemia Atherosclerosis of coronary artery of [place] heart without angina pectoris Atrial fibrillation CAD (coronary artery disease) Cardiomyopathy History of ischemic cardiomyopathy, do not need revascularization, continue optimal medical regimen Chronic kidney disease Coronary artery disease Coronary artery disease Defibrillator discharge Hyperlipidemia Hypertension Well-controlled Hypokalemia Sustained VT (ventricular tachycardia) Continue current regimen including beta-ashley, amiodarone. Appear to be stable not in VT anymore. Can be discharged home. Syncope Tubular adenoma of colon V-tach Ventricular tachycardia Ventricular tachycardia Wide-complex tachycardia Surgical History History of back surgery History of cardiac defibrillator placement Status post implantation of automatic cardioverter/defibrillator (AICD) Stented coronary artery Family History Mother No problems noted. Father No problems noted. Other CAD (coronary artery disease) Social History Smoking and tobacco status: never smoked Alcohol intake: never Substance/Drug Use: never Adopted: No Caregiver/support person: Yes Housing: [facility] Marital status: / Current occupational status: retired Physical Exam HENMT: COMMON NORMALS: normocephalic, atraumatic and hearing grossly normal bilaterally HEAD & SCALP: normocephalic and atraumatic Cardio: RATE: tachycardic GI: COMMON NORMALS: Soft to palpation and No hepatosplenomegaly present AUSCULTATION: Yes normoactive bowel sounds PALPATION: Yes Soft to palpation, No Tenderness to palpation present (GI), No Guarding due to palpation present (GI) and Yes No hepatosplenomegaly present Extremity: COMMON NORMALS: normal to inspection, capillary refill normal, no clubbing, cyanosis or edema, no calf tenderness and no pedal edema Skin: COMMON NORMALS: no rashes or lesions noted GENERAL SKIN EXAM: no rashes or lesions noted Procedures Central Line Placement Right IJ: Time Out Performed: Yes Patient Placed on Monitor/Pulse Ox: Yes MD Prep: mask, gown and gloves Central Line Prep: Chlorhexidine scrub Local Anesthetic: lidocaine 1% Amount of anesthesia used (mL): 5 Ultrasound Used for Placement: Yes Central Line Lumen Inserted: triple Post Procedure: sutured in place, good blood return, all ports aspirated, flushed, capped and sterile dressing applied Post Procedure X-Ray: tip of catheter in good position and no pneumothorax seen Patient Tolerated Procedure: well Complications: none Intubation Time out performed: Yes sedative: Etomidate Mg Given: 20 paralytic: Succinylcholine Mg Given: 90 Laryngoscope: fiber optic video scope Assist Device Used: fiber optic device ET Tube Size: 8 ET Tube Uncuffed: No Tube Secured Depth (cm): 24 (Later adjusted after chest x-ray reviewed repeat x-rays at 21 was in proper position above the robin) Tube Secured Location: teeth Tube Placement Confirmation: visualized tube passing through cords, equal breath sounds bilaterally, no breath sounds over epigastrium and confirmation by capnometry Patient Tolerated Procedure: well Intubation Complications: none Course Vital Signs: Vital signs: Vital Signs Temperature 98.7 F 01/30/23 07:39 Pulse Rate 54 L 01/30/23 08:00 Respiratory Rate 18 01/30/23 08:00 Blood Pressure 117/53 01/30/23 08:00 Pulse Oximetry 92 01/30/23 08:00 Oxygen Delivery Me thod Nasal Cannula 01/29/23 18:00 Oxygen Flow Rate 40 01/30/23 03:32 Fraction of Inspir ed Oxygen 40 01/30/23 08:00 MDM - SOB/Dyspnea Medical Decision Making Patient is having his initial EKG done and went into sustained V. tach which she was symptomatic when he initially arrived he was talking to the staff then he became mildly incoherent babbling. He was brought to the trauma bay given Versed and synchronized cardioversion was performed. Immediately after this patient remained in V. tach and was pulseless. CPR was initiated he was given Afrin after epinephrine and at the first pulse check he was found to can still be in V. tach he was defib was performed and CPR resumed. He was noted to have spontaneous movement shortly after that CPR was stopped and he was found to have a pulse was sinus arrhythmia. Patient had been given IV push amiodarone which was then converted to a drip. He was given IV fluids and then dopamine started dopamine was ineffective and he was changed to Levophed. His pressure improved. He remained on the ventilator on Versed and fentanyl. Discussed with Dr. Rowe will admit consult cardiology admitted to ICU intubated stable condition. Have discussed with the family. Medical Records I reviewed the patient's medical records. Lab Data I reviewed the patient's lab results. 01/30/23 02:44 01/30/23 02:44 Labs/Radiology: Radiology Impressions Renal Ultrasound 01/28/23 07:54 IMPRESSION: No specific focal abnormalities other than the renal cyst on the left Chest X-Ray 01/30/23 04:00 IMPRESSION: 1. Cardiomegaly with worsening pulmonary vascular congestion/edema. Bilateral pleural effusion. 2. Right IJ central venous catheter tip is in the right atrium. This however appears stable when compared to the previous examination. Laboratory Results WBC 21.9 10^3/uL (4.0-10.0) H 01/26/23 08:24 RBC 3.25 10^6/uL (4.1-5.3) L 01/26/23 08:24 Hgb 10.4 g/dL (11.7-16.6) L 01/26/23 08:24 Hct 32.5 % (42.0-52.0) L 01/26/23 08:24 MCV 100.0 fl (80-94) H 01/26/23 08:24 MCH 32.0 pg (28.0-34.0) 01/26/23 08:24 MCHC 32.0 g/dL (30.0-36.0) 01/26/23 08:24 RDW 13.9 % (12.1-15.1) 01/26/23 08:24 Plt Count 182 10^3/cmm (130-400) 01/26/23 08:24 MPV 10.0 fL (7.4-10.4) 01/26/23 08:24 Neut % (Auto) 72.4 % 01/26/23 08:24 Lymph % (Auto) 17.7 % 01/26/23 08:24 [place] % (Auto) 5.8 % 01/26/23 08:24 Eos % (Auto) 1.1 % 01/26/23 08:24 Baso % (Auto) 0.3 % 01/26/23 08:24 Neut # (Auto) 15.84 10^3/uL (1.8-7.7) H 01/26/23 08:24 Lymph # (Auto) 3.9 10^3/uL (0.8-4.8) 01/26/23 08:24 [place] # (Auto) 1.3 10^3/uL (0.2-0.9) H 01/26/23 08:24 Eos # (Auto) 0.3 10^3/uL (0.0-0.8) 01/26/23 08:24 Baso # (Auto) 0.1 10^3/uL (0.0-0.1) 01/26/23 08:24 Nucleated RBC % (auto) 0 % 01/26/23 08:24 Nucleated RBCs # 0.0 /100WBC 01/26/23 08:24 Specimen Type Arterial 01/26/23 08:33 Sample Site Radial, left 01/26/23 08:33 ABG pH 7.38 (7.35-7.45) 01/26/23 08:33 ABG pCO2 34.1 mmHg (35-45) L 01/26/23 08:33 ABG pO2 443.0 mmHg (80.0-100.0) H 01/26/23 08:33 ABG HCO3 20.1 mmol/L (22-26) L 01/26/23 08:33 ABG O2 Saturation > 100.0 01/26/23 08:33 ABG Base Excess -4.4 mmol/L (-2.0-2.0) L 01/26/23 08:33 Daniel Test Pos 01/26/23 08:33 A-a O2 Gradient 28.4 mmHg (5-10) H 01/26/23 08:33 Hematocrit 32.2 % (42-52) L 01/26/23 08:33 Hgb O2 Saturation 99.0 % (95-100) 01/26/23 08:33 Carboxyhemoglobin 0.9 %THgb (0.4-20.1) 01/26/23 08:33 Methemoglobin 0.8 % (0.4-1.5) 01/26/23 08:33 Total Hemoglobin 10.5 g/dL (14-18) L 01/26/23 08:33 Sodium 143.0 mmol/L (131-143) 01/26/23 08:33 Potassium 3.8 mmol/L (3.5-5.0) 01/26/23 08:33 Glucose 162.0 mg/dL (70-115) H 01/26/23 08:33 Ionized Calcium 1.2 mmol/L (1.1-1.4) 01/26/23 08:33 O2 Delivery Device Vent 01/26/23 08:33 O2 Liters/Min 15.0 % 01/26/23 07:23 FiO2 100.0 % 01/26/23 08:33 Tidal Volume 0.45 01/26/23 08:33 PEEP 5.0 cmH20 01/26/23 08:33 Support Group Manager ID [place] 01/26/23 08:33 Sodium 139 mmol/L (136-145) 01/26/23 08:24 Potassium 3.7 mmol/L (3.5-5.1) 01/26/23 08:24 Chloride 106 mmol/L (98-107) 01/26/23 08:24 Carbon Dioxide 20 mmol/L (22-29) L 01/26/23 08:24 Anion Gap 16.7 (5-19) 01/26/23 08:24 BUN 25 mg/dL (8-23) H 01/26/23 08:24 Creatinine 1.8 mg/dL (0.7-1.2) H 01/26/23 08:24 GFR Calculation Not Reportable 01/26/23 08:24 Glucose 169 mg/dL (65-115) H 01/26/23 08:24 Calculated Osmolality 296 mOsm/kg (285-295) H 01/26/23 08:24 Calcium 8.3 mg/dL (8.5-10.5) L 01/26/23 08:24 Magnesium 2.1 mg/dL (1.7-2.3) 01/26/23 08:24 Total Bilirubin 0.3 mg/dL (0.15-1.2) 01/26/23 08:24 AST 67 U/L (0-40) H 01/26/23 08:24 ALT 47 U/L (0-41) H 01/26/23 08:24 Alkaline Phosphatase 85 U/L (40-130) 01/26/23 08:24 Troponin T Baseline 67 ng/L (0-15) H 01/26/23 08:24 Troponin T 120 Minute 84.63 ng/L (0-15) H 01/26/23 10:20 Delta Troponin T 17.63 ABS# (0-10) H* 01/26/23 10:20 Total Protein 6.1 g/dL (6.6-8.7) L 01/26/23 08:24 Albumin 3.1 g/dL (3.5-5.2) L 01/26/23 08:24 Globulin 3.0 g/dL (1.3-4.6) 01/26/23 08:24 TSH 1.04 uIU/mL (0.27-4.20) 01/26/23 08:24 Urine Color Yellow (Yellow) 01/26/23 10:00 Urine Appearance Clear (CLEAR) 01/26/23 10:00 Urine pH 5 (5-7) 01/26/23 10:00 Ur Specific [place] 1.020 (1.005-1.030) 01/26/23 10:00 Urine Protein Trace (Negative) 01/26/23 10:00 Urine Glucose (UA) Norm (Normal) 01/26/23 10:00 Urine Ketones Negative (Negative) 01/26/23 10:00 Urine Blood Neg (Negative) 01/26/23 10:00 Urine Nitrate Negative (Negative) 01/26/23 10:00 Urine Bilirubin Neg (Negative) 01/26/23 10:00 Urine Urobilinogen Norm mg/dL (Negative) 01/26/23 10:00 Ur Leukocyte Esterase Negative (Negative) 01/26/23 10:00 Urine RBC 0-4 /hpf (0-2) H 01/26/23 10:00 Urine WBC 0-4 /hpf (0-5) H 01/26/23 10:00 Ur Squamous Epith Cells 5-10 /hpf (0-5) H 01/26/23 10:00 Amorphous Sediment Not Reportable 01/26/23 10:00 Urine Bacteria None /hpf (NONE) 01/26/23 10:00 Hyaline Casts 25-40 /lpf H 01/26/23 10:00 Fine Granular Casts 0-4 /lpf H 01/26/23 10:00 Urine Mucus 2+ /hpf 01/26/23 10:00 Critical Care Time Critical Care Time: Critical Care Time: Yes Total Critical Care Time: 90 Attestation: The high probability of a clinically significant, sudden or life threatening deterioration of the patient's [] system(s) required my full and direct attention, intervention and personal management. The critical care time is as shown. This time is in addition to time spent performing any reported procedures but includes the following: [x] Data and vital sign review and interpretation [x] Patient assessment, examination and intervention [x] Documentation [x] Medication orders and management Discharge Plan Discharge Patient Disposition: Admitted As Inpatient Admit Provider: Emmanuel Villarreal Clinical Impression: Ventricular tachycardia, sustained, Acute respiratory failure, KARL (acute kidney injury), Elevated troponin, Ischemic cardiomyopathy, Chronic systolic (congestive) heart failure, Pulseless ventricular tachycardia, Elevated troponin I level Condition: Stable Coding Level of Care Code ED Telephone Messenger for Lawson Zelaya
[2023-01-26 10:39] LABS: Bilirubin Urine Neg (Negative); Blood Urine Neg (Negative); Glucose Urine UA Norm (Normal); Hyaline Casts Urine 25-40 /lpf; Ketones Urine Negative (Negative); Leukocyte Esterase Urine Negative (Negative); Mucus Urine 2+ /hpf; Nitrate Urine Negative (Negative); Protein Urine Trace (Negative); RBC Urine 0-4 /hpf (0-2); Urine Appearance Clear (CLEAR); Urine Color Yellow (Yellow); Urobilinogen Urine Norm (Negative); WBC Urine 0-4 /hpf (0-5); pH Urine 5 (5-7)
[2023-01-26 10:40] LABS: Add Urine Culture? No; Fine Granular Casts Urine 0-4 /lpf
--- NOTE | 2023-01-26 10:44 | PC.NURSE ---
Code Blue; Vfib/Begin CPR @0719 150 IVP Amio/Epi IVP @0720 Pulse Check/No Pulse @0721 CPR @0722 Epi IVP @0723 10 Vec and 20 Etom IVP @0724 Pulse Check @0724 Shock/Vtach/ROSC @0724 EKG @0725 ABG @0725 Orders for STEMI called, 4k Heparin IVP, 300 Plavix, and 324 ASA @0727 Versed and Fent. gtt @0728 3rd EKG @0732 Amio gtt started 1 @0733 500 NS Blous @ 0737 Heparin gtt order @0740 3mg Versed Bolus @0744 restraints applied @0745 OG placed @0745 20 Etom IVP @0746 Amio gtt paused @0758 ASA and Plavix admin @0803 Heparin IVP @803 Central Line placed @0810
--- NOTE | 2023-01-26 10:49 | PC.PHAR ---
PT UNABLE TO VERIFY MEDICATIONS-PTS DAUGHTER JASON [phone] VERIFIED PTS MEDICATIONS-JASON STATES SHE HAS BEEN GIVING THE PT AMIODARONE 100MG DAILY FILLED 11/12/22 90D/S EXT ALSO SHOWS AMIODARONE 200MG BID FILLED 01/11/23 90D/S PTS DAUGHTER STATES SHE HAS BOTH BOTTLES BUT STATES SHE HAS ONLY BEEN GIVING THE PT 100MG DAILY-PTS DAUGHTER AJSON STATES THE PT HAS BEEN OFF ELIQUIS 5MG BID FOR MONTHS EXT SHOWS LAST FILLED 09/14/22 90D/S-NOTES ARE MADE IN THE PHARMACY COMMENTS AND A TEXT WAS SENT TO ABOUT THE AMIODARONE
[2023-01-26 11:07] LABS: Troponin 5 2HR 84.63 ng/L (0-15)
[2023-01-26 11:11] LABS: Troponin 5 2HR Delta 17.63 ABS# (0-10)
--- NOTE | 2023-01-26 13:09 | ECG_ITS ---
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 Measurements Intervals [place] Rate: 52 P: -77 AR: 254 QRS: 21 QRSD: 134 T: -87 QT: 511 QTc: 479 Interpretive Statements ELECTRONIC VENTRICULAR PACEMAKER -- CONTOUR ANALYSIS BASED ON INTRINSIC RHYTHM INTRAVENTRICULAR CONDUCTION DELAY [130+ ms QRS DURATION] Compared to ECG 01/26/2023 07:27:02 Intraventricular conduction delay now present Sinus tachycardia no longer present Right-axis deviation no longer present Right bundle-branch block no longer present ST (T wave) deviation no longer present Myocardial infarct finding no longer present Electronically Signed On 01-26-2023 17:40:15 CDT by Ayaan Sen M.D. [id number]
[2023-01-26] MEDS: propofol 1,000 MG/100 ML INJ 2.31 MG IV (14:51)
[2023-01-26 15:31] LABS: Partial Thromboplastin Time 151.1 SECONDS (23.9-36.7)
[2023-01-26 15:48] LABS: Troponin 5 6HR 153.9 ng/L (0-15); Troponin 5 6HR Delta 86.9 ng/L (0-12)
--- NOTE | 2023-01-26 18:25 | PC.NURSE ---
REceived patient from ER staff a 1330. Patient is intubated, Receiving 25 fentanyl and 2 versed, and 10mcg of levophed. Patient occaisonalyl withdraws from pain, does not appear to be purposeful. Vitals: HR: 50 paced, BP: 112/55, SPO2: 100%, Temp 96.6.
--- NOTE | 2023-01-26 18:28 | PC.NURSE ---
SHift SUmmary: After arriving in ICU, it has been uneventful. Patient has rested in bed. Sedation has been switched from Versed to propofol. Levophed titrated down to 6. Heparin titrated down per protocol. Family is at bedside and has been updated.
--- NOTE | 2023-01-26 19:28 | PM.CONSULT ---
Providers/Reason For Consult Consulting Physician/Specialty*: FIORDALIZA Gonzalez MD/cardiology Reason for Consult*: Patient with a wide-complex tachycardia/V-fib arrest/status post ACLS Requesting Physician: Dr. Emmanuel Villarreal Attending Physician: Emmanuel Villarreal MD Primary Care Provider: Gene Peralta History of Present Illness History of Present Illness FIORDALIZA Gonzalez MD/ CardiologyJesus Saucedo is a 87 year old male is admitted to hospital through the emergency room where he presented with complaints of some chest discomfort and generalized weakness. He was found to have wide-complex tachycardia. Initially had a palpable pulse. But subsequently he became pulseless and for that reason, he had cardioversion. Electrical cardioversion resulted in V-fib arrest. He had a brief CPR. ACLS protocol was initiated. He was placed on epinephrine and IV amiodarone. Currently he is intubated and sedated. The family members are not available at this time to give any details of the history. Based on the report, patient was supposed to take amiodarone 400 mg p.o. daily. For some reason, he has been taking only 100 mg milligrams daily. He has a history of multiple episodes of wide-complex tachycardia in the past requiring cardioversion both electrical and chemical.. Has a history of chronic anemia requiring multiple blood transfusion. Known to have ischemic cardiomyopathy, chronic intermittent atrial fibrillation The device was interrogated in the emergency room. The patient VT detection rate is 171-200 and the V-fib rate is greater than 200. He had 1 shock around 8:30 AM today which was successful. Apparently had multiple shocks recently. Review of Systems Narrative: CONSTITUTIONAL: No fever or chills. EYES: No recent documented visual disturbances ENT: No documented ENT disturbances CARDIOVASCULAR: As mentioned above. RESPIRATORY: No significant cough. GASTROINTESTINAL: No hematemesis or melena. GENITOURINARY: No dysuria or hematuria. INTEGUMENTARY: No skin rashes or history of skin cancer. NEURO: No transient ischemic attacks or amaurosis. PSYCHIATRIC: No history of psychosis or major depression. HEMATOLOGIC: Chronic anemia requiring multiple blood transfusion ENDOCRINE: No history of polyuria or polydipsia. MUSCULOSKELETAL: No recent joint pain or swelling. ALLERGY/IMMUNOLOGY: As mentioned above. Medications/Allergies Home Medications Medication Instructions Recorded Confirmed Last Taken Type rosuvastatin 40 mg tablet 40 mg PO BEDTIME 04/12/21 01/26/2323 21:00 History multivit with min-folic 1 tab PO DAILY 04/25/21 01/26/23 10/28/22 08:00 History acid-lutein 400 mcg-250 mcg chewable tablet (Centrum Silver) levothyroxine 75 mcg tablet 75 mcg PO QAM 03/02/22 01/26/23 01/26/23 History albuterol sulfate 90 mcg/actuation 2 puff inhalation Q6H PRN 03/04/22 01/26/23 10/25/22 History aerosol inhaler Shortness Of Breath lidocaine 4 % topical patch 1 patch topical DAILY PRN Pain 04/13/22 01/26/23 Unknown History (Salonpas (lidocaine)) clopidogrel 75 mg tablet 75 mg PO QAM #90 tabs 05/11/22 01/26/23 10/28/22 08:00 Rx ferrous sulfate 325 mg (65 mg 325 mg PO DAILY #90 tabs 07/11/22 01/26/23 10/28/22 Rx iron) tablet (Feosol) 0800 melatonin 5 mg disintegrating 5 mg PO BEDTIME 10/28/22 01/26/23 10/27/22 21:00 History tablet potassium chloride 20 mEq 60 meq PO BID 30 days #180 tabs 10/31/22 01/26/23 Unknown Rx tablet,extended release(part/cryst) (Klor-Con M) metoprolol tartrate 25 mg tablet 12.5 mg PO BID #60 tabs 11/17/22 01/26/23 Unknown Rx amiodarone 200 mg tablet 200 mg PO BID #180 tabs 01/11/23 01/26/23 Unknown Rx acetaminophen 650 mg 1,300 mg PO Q12H PRN Pain 01/26/23 01/26/23 Unknown History tablet,extended release amiodarone 100 mg tablet (Pacerone) 100 mg PO DAILY 01/26/23 01/26/23 01/25/23 History bumetanide 2 mg tablet 2 mg PO BID 01/26/23 01/26/23 Unknown History docusate sodium 100 mg capsule 100 mg PO BID 01/26/23 01/26/23 Unknown History (Stool Softener) nitroglycerin 0.4 mg sublingual 0.4 mg sublingual Q5M PRN Chest 01/26/23 01/26/23 Unknown History tablet (Nitrostat) Pain ondansetron 4 mg disintegrating 4 mg PO Q8H PRN Nausea And Vomiting 01/26/23 01/26/23 Unknown History tablet polyethylene glycol 3350 17 17 g PO DAILY PRN constipation 01/26/23 01/26/23 Unknown History gram/dose oral powder (Miralax) prochlorperazine maleate 5 mg 5 mg PO Q6H PRN Nausea And Vomiting 01/26/23 01/26/23 Unknown History tablet Allergies Allergy/AdvReac Type Severity Reaction Status Date / Time JACKIE Inhibitors Allergy Unknown Unknown Verified 12/24/22 10:20 Latex, Natural Rubber Allergy Unknown ALGY-Rash Verified 12/24/22 10:20 aspirin Allergy ALGY-Hives Verified 12/24/22 10:20 Current Medications Generic Name Dose Route Start Last Admin Trade Name Freq PRN Reason Stop Dose Admin Amiodarone HCl 900 mg/ 518 mls @ 0 mls/hr 01/26/23 07:30 01/26/23 10:15 Dextrose/ IV Miscellaneous IV 0.5 mg/min Supplies .Q0M RICARDO 17.27 mls/hr Administration Protocol Per Protocol Fentanyl 2,500 mcg/ Sodium 250 mls @ 0 mls/hr 01/26/23 07:45 01/26/23 14:00 Chloride IV 50 mcg/hr .Q0M RICARDO 5 mls/hr Titration Protocol Per Protocol Heparin Sodium/Sodium Chloride 25,000 unit in 500 mls @ 0 mls/hr 01/26/23 08:00 01/26/23 15:52 Heparin Drip IV 6.48 unit/kg/hr .Q0M RICARDO 10 mls/hr Titration Protocol Per Protocol Norepinephrine Bitartrate 4 mg 254 mls @ 0 mls/hr 01/26/23 08:00 01/26/23 18:30 / Dextrose IV 6 mcg/min .Q0M RICARDO 22.86 mls/hr Titration Protocol Per Protocol Propofol 1,000 mg in 100 mls @ 0 mls/hr 01/26/23 13:34 01/26/23 15:47 Diprivan IV 10 mcg/kg/min .Q0M RICARDO 4.63 mls/hr Titration Protocol Per Protocol PFSH Acute PFSH: Medical History Acute diastolic (congestive) heart failure Acute IA Acute non-ST elevation myocardial infarction (NSTEMI) Acute on chronic systolic heart failure Anemia Anemia Atherosclerosis of coronary artery of [place] heart without angina pectoris Atrial fibrillation CAD (coronary artery disease) Cardiomyopathy History of ischemic cardiomyopathy, do not need revascularization, continue optimal medical regimen Chronic kidney disease Coronary artery disease Coronary artery disease Defibrillator discharge Hyperlipidemia Hypertension Well-controlled Hypokalemia Sustained VT (ventricular tachycardia) Continue current regimen including beta-ashley, amiodarone. Appear to be stable not in VT anymore. Can be discharged home. Syncope Tubular adenoma of colon V-tach Ventricular tachycardia Ventricular tachycardia Wide-complex tachycardia Surgical History History of back surgery History of cardiac defibrillator placement Status post implantation of automatic cardioverter/defibrillator (AICD) Stented coronary artery Family History Mother No problems noted. Father No problems noted. Other CAD (coronary artery disease) Social History Smoking and tobacco status: never smoked Alcohol intake: never Substance/Drug Use: never Adopted: No Caregiver/support person: Yes Housing: Custodial Marital status: / Current occupational status: retired Vitals/I&O/Wt Last Vital Signs Temp 96.9 F L 01/26/23 16:41 Pulse 50 L 01/26/23 18:15 Resp 16 01/26/23 18:14 BP 108/57 01/26/23 18:15 Pulse Ox 100 01/26/23 18:15 O2 Del Method Mechanical Ventilation 01/26/23 14:25 FiO2 28 01/26/23 18:14 01/26/23 01/26/23 01/26/23 06:59 14:59 22:59 Intake Total 241.599 / 241.599 386.101 / 627.700 Output Total 100 / 100 Balance 241.599 / 241.599 286.101 / 527.700 Weight last 48 hrs Weight 190 lb Weight 170 lb Physical Exam Narrative: GENERAL: The patient is on endotracheal intubation and he is sedated. He is not responding to numerable commands at this time HEENT: No significant pallor, icterus or lymphadenopathy.Oral cavity: There are no mucous membrane lesions. NECK: Trachea appears to be central. No masses noted. No JVD or thyromegaly appreciated. RESPIRATORY: Chest is symmetrical. No intercostals muscle retraction or any accessory muscle activation. There is no chest wall tenderness. Breath sounds are heard bilaterally. No rales or rhonchi heard. No evidence of any consolidation. BREASTS: Deferred. HEART: The heart sounds are normal. No S3 or S4. Short systolic murmur in the lower sternal border. No diastolic murmurs. No pericardial rub ABDOMEN: No vessel pulsations or distention. No tenderness. No organomegaly appreciated. Bowel sounds are normally heard. : Deferred. RECTAL: Deferred. LYMPHATIC: No lymphadenopathy noted in the neck. EXTREMITIES: Trace edema with no cyanosis. Peripheral pulses are weak bilaterally. MUSCULOSKELETAL: No acute joint deformities or swelling SKIN: There are no significant rashes or ecchymosis NEUROPSYCHIATRIC: Patient is intubated and sedated Urinary Catheter Management: Whitman: Cath Placed During This Visit: yes Reason for Continuing Indwelling Catheter: Accurate Measurement of Urinary Output in Critically Ill Patients Urinary Catheter Date of Insertion: 01/26/23 Data 01/27/23 02:20 01/27/23 02:20 Other Labs: Laboratory Last Values WBC 21.9 10^3/uL (4.0-10.0) H 01/26/23 08:24 RBC 3.25 10^6/uL (4.1-5.3) L 01/26/23 08:24 Hgb 10.4 g/dL (11.7-16.6) L 01/26/23 08:24 Hct 32.5 % (42.0-52.0) L 01/26/23 08:24 MCV 100.0 fl (80-94) H 01/26/23 08:24 MCH 32.0 pg (28.0-34.0) 01/26/23 08:24 MCHC 32.0 g/dL (30.0-36.0) 01/26/23 08:24 RDW 13.9 % (12.1-15.1) 01/26/23 08:24 Plt Count 182 10^3/cmm (130-400) 01/26/23 08:24 MPV 10.0 fL (7.4-10.4) 01/26/23 08:24 Neut % (Auto) 72.4 % 01/26/23 08:24 Lymph % (Auto) 17.7 % 01/26/23 08:24 Carter % (Auto) 5.8 % 01/26/23 08:24 Eos % (Auto) 1.1 % 01/26/23 08:24 Baso % (Auto) 0.3 % 01/26/23 08:24 Neut # (Auto) 15.84 10^3/uL (1.8-7.7) H 01/26/23 08:24 Lymph # (Auto) 3.9 10^3/uL (0.8-4.8) 01/26/23 08:24 Carter # (Auto) 1.3 10^3/uL (0.2-0.9) H 01/26/23 08:24 Eos # (Auto) 0.3 10^3/uL (0.0-0.8) 01/26/23 08:24 Baso # (Auto) 0.1 10^3/uL (0.0-0.1) 01/26/23 08:24 Nucleated RBC % (auto) 0 % 01/26/23 08:24 Nucleated RBCs # 0.0 /100WBC 01/26/23 08:24 APTT 151.1 SECONDS (23.9-36.7) H* 01/26/23 14:38 Specimen Type Arterial 01/26/23 08:33 Sample Site Radial, left 01/26/23 08:33 ABG pH 7.38 (7.35-7.45) 01/26/23 08:33 ABG pCO2 34.1 mmHg (35-45) L 01/26/23 08:33 ABG pO2 443.0 mmHg (80.0-100.0) H 01/26/23 08:33 ABG HCO3 20.1 mmol/L (22-26) L 01/26/23 08:33 ABG O2 Saturation > 100.0 01/26/23 08:33 ABG Base Excess -4.4 mmol/L (-2.0-2.0) L 01/26/23 08:33 Daniel Test Pos 01/26/23 08:33 A-a O2 Gradient 28.4 mmHg (5-10) H 01/26/23 08:33 Hematocrit 32.2 % (42-52) L 01/26/23 08:33 Hgb O2 Saturation 99.0 % (95-100) 01/26/23 08:33 Carboxyhemoglobin 0.9 %THgb (0.4-20.1) 01/26/23 08:33 Methemoglobin 0.8 % (0.4-1.5) 01/26/23 08:33 Total Hemoglobin 10.5 g/dL (14-18) L 01/26/23 08:33 Sodium 143.0 mmol/L (131-143) 01/26/23 08:33 Potassium 3.8 mmol/L (3.5-5.0) 01/26/23 08:33 Glucose 162.0 mg/dL (70-115) H 01/26/23 08:33 Ionized Calcium 1.2 mmol/L (1.1-1.4) 01/26/23 08:33 O2 Delivery Device Vent 01/26/23 08:33 O2 Liters/Min 15.0 % 01/26/23 07:23 FiO2 100.0 % 01/26/23 08:33 Tidal Volume 0.45 01/26/23 08:33 PEEP 5.0 cmH20 01/26/23 08:33 Sales Project Coordinator ID Walci 01/26/23 08:33 Sodium 139 mmol/L (136-145) 01/26/23 08:24 Potassium 3.7 mmol/L (3.5-5.1) 01/26/23 08:24 Chloride 106 mmol/L (98-107) 01/26/23 08:24 Carbon Dioxide 20 mmol/L (22-29) L 01/26/23 08:24 Anion Gap 16.7 (5-19) 01/26/23 08:24 BUN 25 mg/dL (8-23) H 01/26/23 08:24 Creatinine 1.8 mg/dL (0.7-1.2) H 01/26/23 08:24 GFR Calculation Not Reportable 01/26/23 08:24 Glucose 169 mg/dL (65-115) H 01/26/23 08:24 Calculated Osmolality 296 mOsm/kg (285-295) H 01/26/23 08:24 Calcium 8.3 mg/dL (8.5-10.5) L 01/26/23 08:24 Magnesium 2.1 mg/dL (1.7-2.3) 01/26/23 08:24 Total Bilirubin 0.3 mg/dL (0.15-1.2) 01/26/23 08:24 AST 67 U/L (0-40) H 01/26/23 08:24 ALT 47 U/L (0-41) H 01/26/23 08:24 Alkaline Phosphatase 85 U/L (40-130) 01/26/23 08:24 Troponin T Baseline 67 ng/L (0-15) H 01/26/23 08:24 Troponin T 120 Minute 84.63 ng/L (0-15) H 01/26/23 10:20 Delta Troponin T 17.63 ABS# (0-10) H* 01/26/23 10:20 Troponin T Hi Sens 6Hr 153.9 ng/L (0-15) H 01/26/23 14:38 Troponin T Hi Sens 6Hr Delta 86.9 ng/L (0-12) H* 01/26/23 14:38 Total Protein 6.1 g/dL (6.6-8.7) L 01/26/23 08:24 Albumin 3.1 g/dL (3.5-5.2) L 01/26/23 08:24 Globulin 3.0 g/dL (1.3-4.6) 01/26/23 08:24 TSH 1.04 uIU/mL (0.27-4.20) 01/26/23 08:24 Urine Color Yellow (Yellow) 01/26/23 10:00 Urine Appearance Clear (CLEAR) 01/26/23 10:00 Urine pH 5 (5-7) 01/26/23 10:00 Ur Specific Reading 1.020 (1.005-1.030) 01/26/23 10:00 Urine Protein Trace (Negative) 01/26/23 10:00 Urine Glucose (UA) Norm (Normal) 01/26/23 10:00 Urine Ketones Negative (Negative) 01/26/23 10:00 Urine Blood Neg (Negative) 01/26/23 10:00 Urine Nitrate Negative (Negative) 01/26/23 10:00 Urine Bilirubin Neg (Negative) 01/26/23 10:00 Urine Urobilinogen Norm mg/dL (Negative) 01/26/23 10:00 Ur Leukocyte Esterase Negative (Negative) 01/26/23 10:00 Urine RBC 0-4 /hpf (0-2) H 01/26/23 10:00 Urine WBC 0-4 /hpf (0-5) H 01/26/23 10:00 Ur Squamous Epith Cells 5-10 /hpf (0-5) H 01/26/23 10:00 Amorphous Sediment Not Reportable 01/26/23 10:00 Urine Bacteria None /hpf (NONE) 01/26/23 10:00 Hyaline Casts 25-40 /lpf H 01/26/23 10:00 Fine Granular Casts 0-4 /lpf H 01/26/23 10:00 Urine Mucus 2+ /hpf 01/26/23 10:00 Micro: Microbiology 01/26/23 10:26 Blood Culture - Preliminary Blood SPECIMEN COLLECTED 01/26/23 10:20 Blood Culture - Preliminary Blood SPECIMEN COLLECTED EKG 1: My Interpretation: EKG showed 100% V paced rhythm with a rate of 52 bpm. QTc is 479. Other data: Venous duplex examination Occlusive thrombus LEFT common femoral, femoral, popliteal, ?peroneal, and left PTV. Thrombus GSV above the knee. ?No evidence of right lower extremity DVT. ?Notified Dr. Villarreal at time of exam and discussed at 1300 Into theEchoardiogram on 08/22/2022 Diffuse hypokinesia of the left ventricule with an ejection ?fraction of 40%.? ?Mildly dilated left-ventricule. ?Grade III/IV diastolic dysfunction (restrictive filling ?pattern), severely elevated filling pressures. ?Moderate biatrial enlargement ?Normal RV size ejection fraction. ?Thickened mitral valve. Mild mitral annular calcification. ?Possibly severe mitral valve regurgitation. ?Thickened aortic valve. Trace to mild aortic valve ?regurgitation. ?Moderate tricuspid valve regurgitation.? ?Severe pulmonary hypertension with an estimated pulmonary artery ?peak systolic pressure of 111 mmHg. ?There is no pericardial effusion. ?There are no intracardiac masses. ?Compared to the study from 04/03/2022, there may not be a ?significant change. Recent catheterization in 2020 Diagnostic Cath Status: ? ? Emergency Diagnostic Findings ? * Left Main has mild to moderate distal disease. ? * Left Anterior Descending is patent stent in the proximal segment.. ? * Circumflex has diffuse luminal irregularities. ? * Proximal Right Coronary Artery: obstructive? 70% stenosis, VENKAT: 3 flow. Hazy lesion is seen. ? * Coronary angiography shows right dominance. A&P Assessment and plan (1) Pulseless ventricular tachycardia: The patient's VT detection zone is kept at 171 - 200. This may need to be to be changed. The IV amiodarone may be continued at this time. The patient's compliance to medical treatment is questionable. (2) Ischemic cardiomyopathy: Continue on the current management. Repeat limited 2D echocardiogram would be helpful to reevaluate the LV ejection fraction. Consider optimizing afterload reducing agents. (3) Chronic systolic (congestive) heart failure: May be carefully treated with IV diuretics (4) KARL (acute kidney injury): Close monitoring of electrolytes (5) Hyperlipidemia: May continue on the current medications (6) Acute respiratory failure: Management as per the primary (7) Nocturnal hypoxemia: Management as per the primary (8) Acute DVT (deep venous thrombosis): Patient is on IV heparin which may be continued (9) Intermittent atrial fibrillation: Patient was started on IV heparin (10) Elevated troponin I level: It could be type II IA. Non-ST elevation myocardial infarction cannot be excluded. Consider Myocardial perfusion imaging, once the clinical status is stable Plan Patient may be kept on the IV heparin IV amiodarone Limited 2D echocardiogram to eval LV function ICD interrogation and reprogramming to a lower VT detection rate Based on the clinical progress, further recommendations will be made Thank you for the opportunity to evaluate this patient and make these recommendations Coding Level of Care Code 02914 Diagnoses Pulseless ventricular tachycardia I47.29 Ischemic cardiomyopathy I25.5 Chronic systolic (congestive) heart failure I50.22 KARL (acute kidney injury) N17.9 Hyperlipidemia E78.5 Acute respiratory failure J96.00 Nocturnal hypoxemia G47.34 Acute DVT (deep venous thrombosis) I82.409 Intermittent atrial fibrillation I48.0 Elevated troponin I level R77.8
--- NOTE | 2023-01-26 21:16 | PC.NURSE ---
VERSED WASTE Wasted 80.7 mL versed with CHAO Naranjo
[2023-01-26] MEDS: atorvastatin 40 mg Tablet 80 MG PO (21:39)
[2023-01-26 21:52] LABS: Partial Thromboplastin Time 82.1 SECONDS (23.9-36.7)
[2023-01-27] VITALS (68 sets, daily range): BP systolic 62–156; BP diastolic 40–89; PULSE 50–133; RESP 14–28; TEMP 37.6–37.7; O2SAT 62–98; BMI 23.8
[2023-01-27] MEDS: propofol 1,000 MG/100 ML INJ 9.25 MG IV (01:11)
[2023-01-27 02:53] LABS: Basophils # 0.1 10^3/uL (0.0-0.1); Basophils % 0.7 %; Eosinophils # 0.1 10^3/uL (0.0-0.8); Hematocrit 30.7 % (42.0-52.0); Hemoglobin 9.7 g/dL (11.7-16.6); Lymphocytes # 2.5 10^3/uL (0.8-4.8); Lymphocytes % 18.4 %; Mean Corpuscular HGB Conc 31.6 g/dL (30.0-36.0); Mean Corpuscular Hemoglobin 31.4 pg (28.0-34.0); Mean Corpuscular Volume 99.4 fl (80-94); Mean Platelet Volume 10.2 fL (7.4-10.4); Monocytes # 1.5 10^3/uL (0.2-0.9); Monocytes % 11.1 %; Neutrophils # 9.11 10^3/uL (1.8-7.7); Nucleated Red Blood Cells % 0 %; Platelet Count 204 10^3/cmm (130-400); Red Blood Count 3.09 10^6/uL (4.1-5.3); Red Cell Distribution Width 14.1 % (12.1-15.1); White Blood Count 13.4 10^3/uL (4.0-10.0)
[2023-01-27 03:10] LABS: Partial Thromboplastin Time 44.1 SECONDS (23.9-36.7)
[2023-01-27 03:27] LABS: Alanine Aminotransferase 73 U/L (0-41); Albumin Level 3.1 g/dL (3.5-5.2); Alkaline Phosphatase 85 U/L (40-130); Aspartate Amino Transferase 92 U/L (0-40); Blood Urea Nitrogen 28 mg/dL (8-23); Calcium 8.6 mg/dL (8.5-10.5); Carbon Dioxide 22 mmol/L (22-29); Chloride 105 mmol/L (98-107); Globulin 2.6 g/dL (1.3-4.6); Glucose 106 mg/dL (65-115); Osmolality Calculated 290 mOsm/kg (285-295); Sodium 137 mmol/L (136-145); Total Bilirubin 0.5 mg/dL (0.15-1.2); Total Protein 5.7 g/dL (6.6-8.7)
[2023-01-27] MEDS: heparin 5,000 unit/mL INJ 1 mL IV (03:34)
[2023-01-27 04:29] LABS: ABG PCO2 36.7 mmHg (35-45); ABG PH Result 7.38 (7.35-7.45); Arterial Blood Gas Hematocrit 27.5 % (42-52); Blood Gas Allen Test Pos; Blood Gas Sample Site Radial, right; Blood Gas Sample Type Arterial; HCO3 ABG 21.7 mmol/L (22-26); Oxygen Device VENT; PO2 ABG 76.8 mmHg (80.0-100.0)
[2023-01-27] MEDS: levothyroxine 75 mcg Tablet PO (05:09)
--- NOTE | 2023-01-27 07:15 | XR_ITS ---
WS: [id number] EXAMINATION: XR chest 1V portable [id number] REASON FOR EXAM: resp failure COMPARISON: Previous study ORDER DATE: 01/27/2023 7:32 AM TECHNIQUE: A single, portable frontal chest x-ray was obtained. X-RAY FINDINGS: Tubes, catheters and devices: Endotracheal tube and nasogastric tube are in satisfactory position. Right IJ central venous catheter tip is in the cavoatrial region. Lungs: Hazy opacities developing in each lung bases greater on the left probably a combination of ate lectasis and pleural effusion. No consolidation. No pneumothorax. Heart/Mediastinum: Unremarkable. No cardiomegaly. Bones/joints: Spinal instrumentation superimposing the central chest with a ICD noted on the left XR/XR chest 1V portable [id number] IMPRESSION: Slightly increasing opacities in the lung bases as noted above.
[2023-01-27] MEDS: pantoprazole 40 mg SDV IVP (08:20)
--- NOTE | 2023-01-27 08:25 | P.PN_ITS ---
Subjective Subjective: Jesus is sedated on the ventilator. No events overnight. Urine output only about 300 cc. Still on norepinephrine Medications: Reviewed: Yes Vitals/I&O/Wt Last Vital Signs Temp 99.8 F H 01/27/23 05:46 Pulse 75 01/27/23 06:30 Resp 14 01/27/23 03:49 BP 103/45 01/27/23 06:30 Pulse Ox 97 01/27/23 06:30 O2 Del Method Mechanical Ventilation 01/26/23 14:25 FiO2 28 01/27/23 03:49 01/26/23 01/27/23 01/27/23 22:59 06:59 14:59 Intake Total 640.580 / 882.179 411.321 / 1293.500 Output Total 100 / 100 200 / 300 Balance 540.580 / 782.179 211.321 / 993.500 Weight last 48 hrs Weight 77.5 kg Weight 86.183 kg Weight 77.111 kg Physical Exam Narrative: General exam is an intubated and sedated white male. HEENT: Pupils equally round Neck is supple no lymphadenopathy or thyromegaly. Central line noted right side. Cardiovascular regular rate and rhythm Lungs clear no wheezing or crackles Abdomen soft with positive bowel sounds exam Whitman Extremities no cyanosis clubbing, 2+ edema noted. Cap refill brisk Skin no rash Neuro: Sedated on ventilator Urinary Catheter Management: Whimtan: Cath Placed During This Visit: yes Reason for Continuing Indwelling Catheter: Accurate Measurement of Urinary Output in Critically Ill Patients Urinary Catheter Date of Insertion: 01/26/23 Data 01/27/23 02:20 01/27/23 02:20 Other Labs: Chest x-ray per my read possible developing infiltrates at the bases. Cannot rule out some element of fluid overload.. Tube position appears adequate. Awaiting radiology reading. Micro: Microbiology 01/26/23 10:26 Blood Culture - Preliminary Blood SPECIMEN COLLECTED 01/26/23 10:20 Blood Culture - Preliminary Blood SPECIMEN COLLECTED A&P Assessment and plan (1) V-tach: Patient presented with ventricular tachycardia. He has had previous similar presentations in the past. Electrolytes at this time are normal including magnesium and TSH Awaiting echocardiogram Appreciate cardiology consultation Continue amiodarone drip At this point cannot continue patient's home metoprolol secondary to hypotension We will interrogate his pacemaker/defibrillator. Cardiology will determine if settings are adequate and adjust as needed (2) Cardiac arrest: Status postcardiac arrest Still requiring norepinephrine Electrolytes have been checked and normal Awaiting echocardiogram Neurologic outcome unknown some sedation today to see if cooperative and could be candidate for extubation (3) Acute respiratory failure: Patient with acute respiratory failure following cardiac arrest, with inability to maintain airway and significant metabolic acidosis. Currently receiving with support with ventilator. Ventilator settings are minimal. Some infiltrate on x-ray. Cannot rule out de veloping pneumonia. Secondary to severity of illness add vancomycin and Zosyn. Sputum culture already pending. Check MRSA PCR. Some infiltrate could be attributed to fluid overload (4) KARL (acute kidney injury): Significant acute kidney injury postcode Whitman has been placed. Renal function is worsened. Repeat BMP this afternoon. If worsens consider nephrology consultation. (5) Leukocytosis: Elevation in white blood cell count likely secondary to demargination from stress from code This is improved Urinalysis was not concerning Temperature has drifted up to 99.8 Infiltrate is present on x-ray. Start vancomycin and Zosyn and continue to m onitor (6) Elevated troponin: Serial troponins Await echocardiogram Placed on a heparin drip (7) Ischemic cardiomyopathy: Previous echocardiogram demonstrated an EF of around 40%, 3/4 diastolic dysfunction Repeat echocardiogram pending (8) Chronic systolic (congestive) heart failure: Patient with history of chronic systolic heart failure He has some evidence of lower extremity edema. Consideration of Lasix dose, if blood pressure increases with lessening sedation. (9) Acute DVT (deep venous thrombosis): Patient with acute DVT Placed on a heparin drip yesterday Pulmonary embolism is not excluded, but patient's renal function is such that CTA is not warranted now with patient improvement Continue anticoagulation with heparin, and hopefully in the future can convert to oral agents if patient's neurologic status improves to be extubated Plan Multiple other medical problems as outlined in past medical history Full code currently Heparin will suffice for DVT prophylaxis Attestations Medical Necessity Statement*: Needs continued hospitalization secondary to respiratory failure requiring mechanical ventilation, acute DVT, ventricular tachycardia and cardiac arrest. Critical Care Time: The high probability of a clinically significant, sudden or life threatening deterioration of the patient's [renal, neurologic, vascular, infectious disease] system(s) required my full and direct attention, intervention and personal management. The critical care time is as shown. This time is in addition to time spent performing any reported procedures but includes the following: [x] Data and vital sign review and interpretation [x] Patient assessment, examination and intervention [x] Documentation [x] Medication orders and management Critical Care Time (min): 38 Coding Level of Care Code Critical Care >/= 30 minutes Critical care time (in minutes): 38 The high probability of a clinically significant, sudden or life threatening deterioration, as referenced in this documentation, required my full and direct attention, intervention and personal management. The critical care time shown is in addition to time spent performing any reported separately billable procedures and includes the following: [x] Data and vital sign review and interpretation [x ] Patient assessment, examination and intervention [x] Medication orders and management [x] Patient/Family updates as able [x] Care Coordination and Documentation. Diagnoses V-tach I47.20 Cardiac arrest I46.9 Acute respiratory failure J96.00 KARL (acute kidney injury) N17.9 Leukocytosis D72.829 Elevated troponin R77.8 Ischemic cardiomyopathy I25.5 Chronic systolic (congestive) heart failure I50.22 Acute DVT (deep venous thrombosis) I82.409
[2023-01-27 09:50] LABS: Partial Thromboplastin Time 79.9 SECONDS (23.9-36.7)
[2023-01-27] MEDS: piperacillin-tazobactam 3.375 GM in sodium chloride 0.9% (plus) 50 ML IV ×2 (10:02→16:51)
--- NOTE | 2023-01-27 10:24 | PC.PHAR ---
Patient: Floor: Age: 87 yo Serum creatinine: 2.1 mg/dL Height: 70.9 Inches Weight (kg): 77 IBW (kg): 75.07 Dosing wt(kg): 77 Estimated Creatinine clearance (ml/min): 27.3 CRCL method: Cockcroft and Gault using ibw(default). Drug selected: Vancomycin Loading dose (mg): Vd (liters): 53.9 (factor used: 0.7 L/kg) Carlos (hr-1): 0.027 Half life (hrs): 25.67 CLvanco=?? 1.455 L/hr Recommended dose: 1000 mg Interval: 24 hrs Infusion time (hrs): 1 Predicted peak (mcg/mL): 38.4 Predicted trough (mcg/mL): 20.64 Total body weight is being used for vancomycin dosing. Recommendations: Give Vancomycin 1000 mg q 24 hrs with an expected Cpeak of 38.4 mcg/ml and an expected Ctrough of 20.64 mcg/ml AUC 0-24 /RULA Data: RULA 0.5 mcg/mL:?? AUC/RULA:? 1374.6 RULA 1.0 mcg/mL:?? AUC/RULA:? 687.3 --------- RULA 1.5 mcg/mL:?? AUC/RULA:? 458.2 RULA 2.0 mcg/mL:?? AUC/RULA:? 343.6 Renal dosing of other antibiotics (review renal dosing of other medications and list guidelines here): Thank you for the consult, will continue to follow. Signature: Phani Jacobs, LatashaD
[2023-01-27] MEDS: norepinephrine 8 MG in dextrose 5 % 500 ML 45.72 MG IV (11:00)
[2023-01-27] MEDS: vancomycin 1,000 MG in sodium chloride 0.9% 250 ML 250 MG IV (11:09)
--- NOTE | 2023-01-27 12:38 | ECG_ITS ---
[facility] Test Date: 2023-01-27 Pat Name: Jesus Saucedo Department: Room: ICU10 Gender: Male Card Boxer: : [id number] Requested By: Emmanuel Levy Order Number: [id number] Anders MD: Mike Gonzalez M.D. Measurements Intervals [place] Rate: 114 P: -52 UT: 241 QRS: -89 QRSD: 194 T: 80 QT: 431 QTc: 595 Interpretive Statements Possible Slow ventricular tachycardia Further interpretation is not possible Electronically Signed On 01-27-2023 20:45:40 CDT by Mike Gonzalez M.D. [id number] f
[2023-01-27 13:27] LABS: Anion Gap 18.8 (5-19); Blood Urea Nitrogen 29 mg/dL (8-23); Calcium 8.9 mg/dL (8.5-10.5); Carbon Dioxide 19 mmol/L (22-29); Chloride 102 mmol/L (98-107); Glucose 106 mg/dL (65-115); Osmolality Calculated 286 mOsm/kg (285-295); Potassium 4.8 mmol/L (3.5-5.1); Sodium 135 mmol/L (136-145)
[2023-01-27 16:03] LABS: Partial Thromboplastin Time 44.2 SECONDS (23.9-36.7)
[2023-01-27] MEDS: adenosine 3 mg/mL SDV 2mL 6 MG IVP (18:14)
--- NOTE | 2023-01-27 18:15 | PM.PN ---
Subjective Subjective: Patient got extubated. He seems to be drowsy. He has fine jerking movements all over the body. Telemetry shows a slow VT with a rate of 130 bpm. Medications: Medication Review Details: Current Medications Acetaminophen (Acetaminophen 325 Mg Tablet) 650 mg PO Q6H PRN PRN Reason: MILD PAIN Atorvastatin Calcium (Atorvastatin 40 Mg Tablet) 80 mg PO BEDTIME RICARDO Last Admin: 01/26/23 21:39 Dose: 80 mg Heparin Sodium (Porcine) (Heparin 5,000 Unit/Ml Inj 1 Ml) 0 unit IV PRN PRN; Protocol PRN Reason: Heparin weight-base protocol Last Admin: 01/27/23 03:34 Dose: 3,100 unit Amiodarone HCl 900 mg/Dextrose/ IV Miscellaneous Supplies 518 mls @ 0 mls/hr IV .Q0M RICARDO; Protocol Last Admin: 01/27/23 15:46 Dose: 1 mg/min, 34.53 mls/hr Fentanyl 2,500 mcg/ Sodium (Chloride) 250 mls @ 0 mls/hr IV .Q0M RICARDO; Protocol Last Titration: 01/27/23 00:15 Dose: 125 mcg/hr, 12.5 mls/hr Heparin Sodium/Sodium Chloride (Heparin Drip) 25,000 unit in 500 mls @ 0 mls/hr IV .Q0M RICARDO; Protocol Last Titration: 01/27/23 13:08 Dose: 5.84 unit/kg/hr, 9 mls/hr Norepinephrine Bitartrate 4 mg (/ Dextrose) 254 mls @ 0 mls/hr IV .Q0M RICARDO; Protocol Last Admin: 01/27/23 05:03 Dose: 14 mcg/min, 53.34 mls/hr Sodium Chloride (Sodium Chloride 0.9%) 500 mls @ 0 mls/hr IV .Q0M RICARDO Propofol (Diprivan) 1,000 mg in 100 mls @ 0 mls/hr IV .Q0M RICARDO; Protocol Last Admin: 01/27/23 01:11 Dose: 20 mcg/kg/min, 9.25 mls/hr Vancomycin HCl 1,000 mg/ (Sodium Chloride) 250 mls @ 250 mls/hr IV Q24H RICARDO; Protocol Last Admin: 01/27/23 11:09 Dose: 250 mls/hr Piperacillin Sod/Tazobactam (Sod 3.375 gm/ Sodium Chloride) 50 mls @ 12.5 mls/hr IV Q8H [facility] Last Admin: 01/27/23 16:51 Dose: 12.5 mls/hr Norepinephrine Bitartrate 8 mg (/ Dextrose) 508 mls @ 0 mls/hr IV .Q0M [facility]; Protocol Levothyroxine Sodium (Levothyroxine 75 Mcg Tablet) 75 mcg PO QAM [facility] Last Admin: 01/27/23 05:09 Dose: 75 mcg Ondansetron HCl (Ondansetron 2 Mg/Ml Sdv 2 Ml) 4 mg IVP Q6H PRN PRN Reason: NAUSEA AND VOMITING Pantoprazole Sodium (Pantoprazole 40 Mg Sdv) 40 mg IVP DAILY [facility] Last Admin: 01/27/23 08:20 Dose: 40 mg Vitals/I&O/Wt Last Vital Signs Temp 99.8 F H 01/27/23 05:46 Pulse 130 H 01/27/23 16:47 Resp 18 01/27/23 16:47 BP 75/49 01/27/23 16:00 Pulse Ox 90 01/27/23 16:47 O2 Del Method Mechanical Ventilation 01/26/23 14:25 O2 Flow Rate 65 01/27/23 16:47 FiO2 65 01/27/23 16:47 01/27/23 01/27/23 01/27/23 06:59 14:59 22:59 Intake Total 411.321 / 1293.500 155.417 / 155.417 509.753 / 665.170 Output Total 200 / 300 200 / 200 Balance 211.321 / 993.500 155.417 / 155.417 309.753 / 465.170 Weight last 48 hrs Weight 170 lb 13.732 oz Weight 190 lb Weight 170 lb Physical Exam Narrative: GENERAL: The patient is extubated but drowsy, keeping his eyes closed HEENT: Moderate pallor. No icterus NECK: Trachea appears to be central. No masses noted. No JVD or thyromegaly appreciated. RESPIRATORY: Chest is symmetrical. No intercostals muscle retraction or any accessory muscle activation. There is no chest wall tenderness. Breath sounds are heard bilaterally. No rales or rhonchi heard. No evidence of any consolidation. BREASTS: Deferred. HEART: The heart sounds are normal. No S3 or S4. Short systolic murmur in the mitral area. No pericardial rub ABDOMEN: No vessel pulsations or distention. No tenderness. No organomegaly appreciated. Bowel sounds are normally heard. : Deferred. RECTAL: Deferred. LYMPHATIC: No lymphadenopathy noted in the neck. EXTREMITIES: No edema or cyanosis. No clubbing. MUSCULOSKELETAL: No acute joint deformities or swelling SKIN: There are no significant rashes or ecchymosis NEUROPSYCHIATRIC: Patient seems drowsy, answering to questions by yes or no. Fine jerking movements all over the body Urinary Catheter Management: Whitman: Cath Placed During This Visit: yes Reason for Continuing Indwelling Catheter: Accurate Measurement of Urinary Output in Critically Ill Patients Urinary Catheter Date of Insertion: 01/26/23 Data 01/27/23 02:20 01/27/23 12:58 Other Labs: Laboratory Last Values WBC 13.4 10^3/uL (4.0-10.0) H 01/27/23 02:20 RBC 3.09 10^6/uL (4.1-5.3) L 01/27/23 02:20 Hgb 9.7 g/dL (11.7-16.6) L 01/27/23 02:20 Hct 30.7 % (42.0-52.0) L 01/27/23 02:20 MCV 99.4 fl (80-94) H 01/27/23 02:20 MCH 31.4 pg (28.0-34.0) 01/27/23 02:20 MCHC 31.6 g/dL (30.0-36.0) 01/27/23 02:20 RDW 14.1 % (12.1-15.1) 01/27/23 02:20 Plt Count 204 10^3/cmm (130-400) 01/27/23 02:20 MPV 10.2 fL (7.4-10.4) 01/27/23 02:20 Neut % (Auto) 68.0 % 01/27/23 02:20 Lymph % (Auto) 18.4 % 01/27/23 02:20 Carbon % (Auto) 11.1 % 01/27/23 02:20 Eos % (Auto) 1.0 % 01/27/23 02:20 Baso % (Auto) 0.7 % 01/27/23 02:20 Neut # (Auto) 9.11 10^3/uL (1.8-7.7) H 01/27/23 02:20 Lymph # (Auto) 2.5 10^3/uL (0.8-4.8) 01/27/23 02:20 Carbon # (Auto) 1.5 10^3/uL (0.2-0.9) H 01/27/23 02:20 Eos # (Auto) 0.1 10^3/uL (0.0-0.8) 01/27/23 02:20 Baso # (Auto) 0.1 10^3/uL (0.0-0.1) 01/27/23 02:20 Nucleated RBC % (auto) 0 % 01/27/23 02:20 Nucleated RBCs # 0.0 /100WBC 01/27/23 02:20 APTT 44.2 SECONDS (23.9-36.7) H 01/27/23 15:26 Specimen Type Arterial 01/27/23 04:03 Sample Site Radial, right 01/27/23 04:03 ABG pH 7.38 (7.35-7.45) 01/27/23 04:03 ABG pCO2 36.7 mmHg (35-45) 01/27/23 04:03 ABG pO2 76.8 mmHg (80.0-100.0) L 01/27/23 04:03 ABG HCO3 21.7 mmol/L (22-26) L 01/27/23 04:03 ABG O2 Saturation > 100.0 01/26/23 08:33 ABG Base Excess -3.0 mmol/L (-2.0-2.0) L 01/27/23 04:03 Daniel Test Pos 01/27/23 04:03 A-a O2 Gradient 28.4 mmHg (5-10) H 01/26/23 08:33 Hematocrit 27.5 % (42-52) L 01/27/23 04:03 Hgb O2 Saturation 99.0 % (95-100) 01/26/23 08:33 Carboxyhemoglobin 0.9 %THgb (0.4-20.1) 01/26/23 08:33 Methemoglobin 0.8 % (0.4-1.5) 01/26/23 08:33 Total Hemoglobin 10.5 g/dL (14-18) L 01/26/23 08:33 Sodium 143.0 mmol/L (131-143) 01/26/23 08:33 Potassium 3.8 mmol/L (3.5-5.0) 01/26/23 08:33 Glucose 162.0 mg/dL (70-115) H 01/26/23 08:33 Ionized Calcium 1.2 mmol/L (1.1-1.4) 01/26/23 08:33 O2 Delivery Device Vent 01/27/23 04:03 O2 Liters/Min 15.0 % 01/26/23 07:23 FiO2 28.0 % 01/27/23 04:03 Tidal Volume 0.45 01/26/23 08:33 PEEP 5.0 cmH20 01/27/23 04:03 Sports Nutritionist ID Alewe 01/27/23 04:03 Sodium 135 mmol/L (136-145) L 01/27/23 12:58 Potassium 4.8 mmol/L (3.5-5.1) 01/27/23 12:58 Chloride 102 mmol/L (98-107) 01/27/23 12:58 Carbon Dioxide 19 mmol/L (22-29) L 01/27/23 12:58 Anion Gap 18.8 (5-19) 01/27/23 12:58 BUN 29 mg/dL (8-23) H 01/27/23 12:58 Creatinine 2.2 mg/dL (0.7-1.2) H 01/27/23 12:58 GFR Calculation Not Reportable 01/27/23 12:58 Glucose 106 mg/dL (65-115) 01/27/23 12:58 Calculated Osmolality 286 mOsm/kg (285-295) 01/27/23 12:58 Calcium 8.9 mg/dL (8.5-10.5) 01/27/23 12:58 Magnesium 2.0 mg/dL (1.7-2.3) 01/27/23 02:20 Total Bilirubin 0.5 mg/dL (0.15-1.2) 01/27/23 02:20 AST 92 U/L (0-40) H 01/27/23 02:20 ALT 73 U/L (0-41) H 01/27/23 02:20 Alkaline Phosphatase 85 U/L (40-130) 01/27/23 02:20 Troponin T Baseline 67 ng/L (0-15) H 01/26/23 08:24 Troponin T 120 Minute 84.63 ng/L (0-15) H 01/26/23 10:20 Delta Troponin T 17.63 ABS# (0-10) H* 01/26/23 10:20 Troponin T Hi Sens 6Hr 153.9 ng/L (0-15) H 01/26/23 14:38 Troponin T Hi Sens 6Hr Delta 86.9 ng/L (0-12) H* 01/26/23 14:38 Total Protein 5.7 g/dL (6.6-8.7) L 01/27/23 02:20 Albumin 3.1 g/dL (3.5-5.2) L 01/27/23 02:20 Globulin 2.6 g/dL (1.3-4.6) 01/27/23 02:20 TSH 1.04 uIU/mL (0.27-4.20) 01/26/23 08:24 Urine Color Yellow (Yellow) 01/26/23 10:00 Urine Appearance Clear (CLEAR) 01/26/23 10:00 Urine pH 5 (5-7) 01/26/23 10:00 Ur Specific Manter 1.020 (1.005-1.030) 01/26/23 10:00 Urine Protein Trace (Negative) 01/26/23 10:00 Urine Glucose (UA) Norm (Normal) 01/26/23 10:00 Urine Ketones Negative (Negative) 01/26/23 10:00 Urine Blood Neg (Negative) 01/26/23 10:00 Urine Nitrate Negative (Negative) 01/26/23 10:00 Urine Bilirubin Neg (Negative) 01/26/23 10:00 Urine Urobilinogen Norm mg/dL (Negative) 01/26/23 10:00 Ur Leukocyte Esterase Negative (Negative) 01/26/23 10:00 Urine RBC 0-4 /hpf (0-2) H 01/26/23 10:00 Urine WBC 0-4 /hpf (0-5) H 01/26/23 10:00 Ur Squamous Epith Cells 5-10 /hpf (0-5) H 01/26/23 10:00 Amorphous Sediment Not Reportable 01/26/23 10:00 Urine Bacteria None /hpf (NONE) 01/26/23 10:00 Hyaline Casts 25-40 /lpf H 01/26/23 10:00 Fine Granular Casts 0-4 /lpf H 01/26/23 10:00 Urine Mucus 2+ /hpf 01/26/23 10:00 Micro: Microbiology 01/26/23 10:55 Gram Stain - Final Sputum - Endotracheal Tube Aspirate Sputum Culture - Preliminary 01/26/23 10:26 Blood Culture - Preliminary Blood NEGATIVE TO DATE 01/26/23 10:20 Blood Culture - Preliminary Blood NEGATIVE TO DATE A&P Assessment and plan (1) Ventricular tachycardia: Patient currently has a slow VT with a heart rate in the 130s. It seems to me that the patient has VT with the multiple cycle lengths. Discussed with the family about the possibility of VT ablation. With his age and multiple comorbid factors, he carries a high risk for the procedure. Optimizing the medical treatment will be the plan of action at this point. I may start him on a lidocaine drip, if the blood pressure tolerates. We will give him 1 mg/kg lidocaine as an IV bolus (2) Elevated troponin I level: Patient may benefit from a Myocardial perfusion imaging, if he can tolerate it to further evaluate the coronary status. Because of his high risk for contrast-induced nephropathy which would be avoiding cardiac catheterization if at all possible. The family is thinking about changing his CODE STATUS today. (3) Intermittent atrial fibrillation: Plan continue on the current measures. (4) Acute DVT (deep venous thrombosis): Patient is on IV heparin (5) Ischemic cardiomyopathy: LV ejection fraction about 35 to 40% by echocardiogram. From 2020, the ejection fraction has decreased from 40 to 45% (6) KARL (acute kidney injury): The BUN/creatinine seems to be stable at this point Plan Based on the clinical progress, further recommendations will be made. Dr. Sen will be assuming the cardiac care in the morning. Attestations Medical Necessity Statement*: Patient requires continued hospital stay for close monitoring and further management Coding Level of Care Code 65520 Diagnoses Ventricular tachycardia I47.20 Elevated troponin I level R77.8 Intermittent atrial fibrillation I48.0 Acute DVT (deep venous thrombosis) I82.409 Ischemic cardiomyopathy I25.5 KARL (acute kidney injury) N17.9
--- NOTE | 2023-01-27 18:35 | PC.NURSE ---
Shift summary: patient tolerated weaning sedation and vent, extubated earlier in shift per RT. through out shift patient ran wide complex tachycardia in the 130s. approximately [address] Gonzalez and Cherelle was updated. Dr. Villarreal came to bedside reviewed EKG advised to consult Dr. Gonzalez. Carlos came to bedside approximately 1730 gave order for Adenosine per SEP. Rhythm unchanged, orders received for Lidocaine push and drip per SEP
[2023-01-27] MEDS: lidocaine drip 2,000 MG/500 ML PREMIX 15 MG IV (18:58)
[2023-01-27] MEDS: norepinephrine 8 MG in dextrose 5 % 500 ML 76.2 MG IV (23:32)
[2023-01-28] VITALS (104 sets, daily range): BP systolic 81–139; BP diastolic 37–75; PULSE 62–98; RESP 16–28; TEMP 36.8–37.4; O2SAT 90–100; BMI 23.8
[2023-01-28 01:13] LABS: Partial Thromboplastin Time 47.8 SECONDS (23.9-36.7)
[2023-01-28] MEDS: piperacillin-tazobactam 3.375 GM in sodium chloride 0.9% (plus) 50 ML IV ×3 (02:04→17:05)
[2023-01-28] MEDS: heparin drip 25,000 UNIT/500 ML PREMIX 13.5 UNIT IV (02:48)
[2023-01-28] MEDS: heparin 5,000 unit/mL INJ 1 mL IV (02:55)
[2023-01-28 05:39] LABS: Basophils # 0.1 10^3/uL (0.0-0.1); Basophils % 0.3 %; Eosinophils % 0.1 %; Hematocrit 24.5 % (42.0-52.0); Lymphocytes # 1.2 10^3/uL (0.8-4.8); Lymphocytes % 5.9 %; Mean Corpuscular HGB Conc 32.7 g/dL (30.0-36.0); Mean Corpuscular Hemoglobin 31.7 pg (28.0-34.0); Mean Corpuscular Volume 97.2 fl (80-94); Mean Platelet Volume 10.3 fL (7.4-10.4); Monocytes # 1.1 10^3/uL (0.2-0.9); Monocytes % 5.5 %; Neutrophils # 17.09 10^3/uL (1.8-7.7); Neutrophils % 87.3 %; Nucleated Red Blood Cells % 0 %; Platelet Count 178 10^3/cmm (130-400); Red Blood Count 2.52 10^6/uL (4.1-5.3); Red Cell Distribution Width 13.9 % (12.1-15.1); White Blood Count 19.6 10^3/uL (4.0-10.0)
[2023-01-28] MEDS: norepinephrine 8 MG in dextrose 5 % 500 ML 76.2 MG IV (06:09)
[2023-01-28 06:24] LABS: Alanine Aminotransferase 103 U/L (0-41); Albumin Level 2.6 g/dL (3.5-5.2); Alkaline Phosphatase 67 U/L (40-130); Aspartate Amino Transferase 131 U/L (0-40); Blood Urea Nitrogen 36 mg/dL (8-23); Carbon Dioxide 19 mmol/L (22-29); Globulin 2.3 g/dL (1.3-4.6); Glucose 103 mg/dL (65-115); Magnesium 1.7 mg/dL (1.7-2.3); Total Protein 4.9 g/dL (6.6-8.7)
[2023-01-28 06:51] LABS: Anion Gap 16.7 (5-19); Chloride 98 mmol/L (98-107); Osmolality Calculated 277 mOsm/kg (285-295); Potassium 4.7 mmol/L (3.5-5.1); Sodium 129 mmol/L (136-145)
--- NOTE | 2023-01-28 07:54 | US_ITS ---
WS: [id number] RENAL ULTRASOUND REASON FOR EXAM: renal failure COMPARISON: None available. ORDER DATE: 01/28/2023 8:09 AM TECHNIQUE: Grayscale and Doppler ultrasound examination of the kidneys. FINDINGS: Right kidney: Right kidney measures 10.8 cm x 6.8 cm x 4.9 cm. No focal abnormality Left kidney: Left kidney measures 10.5 cm x 5.3 cm x 4.8 cm. There is a 3 cm cyst Renal parenchymal echogenicity slightly increased bilaterally. Renal vascular flow not evaluated. US/US renal BI with PV bladder IMPRESSION: No specific focal abnormalities other than the renal cyst on the left
--- NOTE | 2023-01-28 07:54 | XR_ITS ---
WS: [id number] EXAMINATION: XR chest 1V portable [id number] REASON FOR EXAM: hypoxia COMPARISON: 01/27/2023 ORDER DATE: 01/28/2023 8:24 AM TECHNIQUE: A single, portable frontal chest x-ray was obtained. X-RAY FINDINGS: Endotracheal tube and nasogastric tube have been removed in the interval. Right IJ central venous cat heter tip is in the cavoatrial region. Lungs: Hazy opacities developing in each lung bases greater on the left probably a combination of atelectasis and pleural effusion. Possible mild medial bibasal consolidation. No pneumothorax. Heart/Mediastinum: Unremarkable. No cardiomegaly. Bones/joints: Spinal instrumentation superimposing the central chest with a ICD noted on the left XR/XR chest 1V portable [id number] IMPRESSION: Slightly increasing opacities in the medial lung bases as noted above. .
[2023-01-28] MEDS: albumin 25 G/100 ML BAG 60 G IV ×2 (08:13→15:38)
[2023-01-28] MEDS: pantoprazole 40 mg SDV IVP (08:17)
--- NOTE | 2023-01-28 09:26 | PM.PN ---
Subjective Subjective: Patient is stable. Denies chest pain. Vitals/I&O/Wt Last Vital Signs Temp 99.8 F H 01/27/23 05:46 Pulse 92 01/28/23 09:00 Resp 22 H 01/28/23 09:00 BP 97/50 01/28/23 08:15 Pulse Ox 98 01/28/23 09:00 O2 Del Method Mechanical Ventilation 01/26/23 14:25 O2 Flow Rate 60 01/28/23 09:00 FiO2 60 01/28/23 09:00 01/27/23 01/28/23 01/28/23 22:59 06:59 14:59 Intake Total 1497.110 / 5782.756 9584.642 / 3141.609 Output Total 450 / 450 150 / 600 Balance 1047.110 / 1547.967 993.642 / 2541.609 Weight last 48 hrs Weight 170 lb 13 oz Weight 170 lb 13.732 oz Physical Exam Narrative: GENERAL: Patient is alert, awake NECK: No jugular vein distension. [] HEENT: No cyanosis. No icterus. No pallor. [] HEART: Regular S1 and S2. LUNGS: Diminished air entry bilaterally CENTRAL NERVOUS SYSTEM: Grossly nonfocal. [] EXTREMITIES: Lower extremities with 1+ edema bilaterally. Urinary Catheter Management: Whitman: Cath Placed During This Visit: yes Reason for Continuing Indwelling Catheter: Accurate Measurement of Urinary Output in Critically Ill Patients Urinary Catheter Date of Insertion: 01/26/23 Data 01/28/23 21:04 01/28/23 13:11 Micro: Microbiology 01/26/23 10:55 Gram Stain - Final Sputum - Endotracheal Tube Aspirate Sputum Culture - Preliminary 01/26/23 10:26 Blood Culture - Preliminary Blood NEGATIVE TO DATE 01/26/23 10:20 Blood Culture - Preliminary Blood NEGATIVE TO DATE A&P Assessment and plan (1) Ventricular tachycardia: Controlled on lidocaine and amiodarone. We will downtitrate the gtt to 0.5 and then stop in the afternoon if rhythm stays stable. In the past had hallucinations with the medication We will decrease the VT detection rate as he was in slow VT (2) Elevated troponin I level: Likely secondary to VT. Can discuss stress test once patient improves (3) Intermittent atrial fibrillation: Plan continue on the current measures. (4) Acute DVT (deep venous thrombosis): Patient is on IV heparin (5) Ischemic cardiomyopathy: LV ejection fraction about 35 to 40% by echocardiogram. As patient is requiring levophed, can not start heart failure therapy at this time. (6) KARL (acute kidney injury): Attestations Medical Necessity Statement*: Care expected to cross 2 midnights. Coding Level of Care Code Acute Code for [facility] Fwd Diagnoses Ventricular tachycardia I47.20 Elevated troponin I level R77.8 Intermittent atrial fibrillation I48.0 Acute DVT (deep venous thrombosis) I82.409 Ischemic cardiomyopathy I25.5 KARL (acute kidney injury) N17.9
[2023-01-28 09:53] LABS: Partial Thromboplastin Time 110.2 SECONDS (23.9-36.7)
[2023-01-28] MEDS: vancomycin 1,000 MG in sodium chloride 0.9% 250 ML 250 MG IV (10:29)
--- NOTE | 2023-01-28 11:00 | P.PN_ITS ---
Subjective Subjective: Jesus is awake and alert. He has stayed off increasing respiratory support since yesterday when he was extubated. He denies any discomfort currently. His FiO2 is still at 60% high flow, not yet been able to be weaned. He denies any chest discomfort. Medications: Reviewed: Yes Vitals/I&O/Wt Last Vital Signs Temp 99.8 F H 01/27/23 05:46 Pulse 87 01/28/23 10:00 Resp 28 H 01/28/23 10:00 BP 105/57 01/28/23 10:00 Pulse Ox 98 01/28/23 09:15 O2 Del Method Mechanical Ventilation 01/26/23 14:25 O2 Flow Rate 60 01/28/23 09:00 FiO2 60 01/28/23 09:00 01/27/23 01/28/23 01/28/23 22:59 06:59 14:59 Intake Total 1497.110 / 2066.037 5517.642 / 3141.609 Output Total 450 / 450 150 / 600 Balance 1047.110 / 1547.967 993.642 / 2541.609 Weight last 48 hrs Weight 77.479 kg Weight 77.5 kg Physical Exam Narrative: General exam awake, communicative, can follow directions. Currently on a lidocaine drip with heart rate of 85 Neck is supple no lymphadenopathy or thyromegaly. Central line noted right side. Cardiovascular regular rate and rhythm Lungs clear no wheezing or crackles Abdomen soft with positive bowel sounds exam Whitman Extremities no cyanosis clubbing, 2+ edema noted. Cap refill brisk Skin no rash Urinary Catheter Management: Whitman: Cath Placed During This Visit: yes Reason for Continuing Indwelling Catheter: Accurate Measurement of Urinary Output in Critically Ill Patients Urinary Catheter Date of Insertion: 01/26/23 Data 01/28/23 05:20 01/28/23 05:20 Micro: Microbiology 01/26/23 10:55 Gram Stain - Final Sputum - Endotracheal Tube Aspirate Sputum Culture - Preliminary 01/26/23 10:26 Blood Culture - Preliminary Blood NEGATIVE TO DATE 01/26/23 10:20 Blood Culture - Preliminary Blood NEGATIVE TO DATE A&P Assessment and plan (1) V-tach: Patient presented with ventricular tachycardia. He has had previous similar presentations in the past. Electrolytes at this time are normal including magnesium and TSH Echo shows diminished ejection fraction of around 40% Appreciate cardiology consultation Currently on amiodarone drip as well as lidocaine drip. Tapering lidocaine drip per cardiology instructions At this point cannot continue patient's home metoprolol secondary to hypotension Cardiology to determine if pacemaker/defibrillator settings are adequate (2) Cardiac arrest: Status postcardiac arrest Still requiring norepinephrine. Norepinephrine dose is increased with addition of and lidocaine drip. Electrolytes have been checked and normal Echocardiogram as above He is neurologically intact (3) Acute respiratory failure: Extubation occurred yesterday 01/27. He is tolerating high flow without difficulty. Ventilator settings are minimal. Left base infiltrate noted on x-ray. Possible small effusions. Secondary to elevated white count, temperature elevations, secretions, concerned about developing pneumonia that may have been present on admission. Vancomycin and Zosyn were ordered. MRSA PCR, sputum culture pending. Sputum culture currently scant normal jf (4) KARL (acute kidney injury): Significant acute kidney injury postcode Whitman has been placed. Renal function slightly worse. Overall needs diuresis but not able to accomplish secondary to hypotension As albumin is low, hypotension is present, albumin infusion will be initiated along with his norepinephrine which is ongoing. Renal ultrasound has been checked and no evidence of obstruction Nephrology consultation. Note that family does not want dialysis CBC, BMP in the morning (5) Leukocytosis: Elevation in white blood cell count likely secondary to demargination from stress from code This is improved Urinalysis was not concerning Temperature has drifted up to 99.8 Infiltrate is present on x-ray. Start vancomycin and Zosyn and continue to monitor (6) Elevated troponin: Cardiology following Currently on a heparin drip EF is above (7) Ischemic cardiomyopathy: Previous echocardiogram demonstrated an EF of around 40%, 3/4 diastolic dysfunction Repeat echocardiogram pending (8) Chronic systolic (congestive) heart failure: Patient with history of chronic systolic heart failure He has some evidence of lower extremity edema. Consideration of Lasix dose, if blood pressure increases with lessening sedation. (9) Acute DVT (deep venous thrombosis): Patient with acute DVT Placed on a heparin drip on admission Pulmonary embolism is not excluded, but patient's renal function is such that CTA is not warranted now with patient improvement Continue anticoagulation with heparin, and hopefully in the future can convert to oral agents i as patient improves Plan Multiple other medical problems as outlined in past medical history Full code currently Heparin will suffice for DVT prophylaxis Attestations Medical Necessity Statement*: Needs continued hospital stay secondary to cardiac arrhythmia, hypotension requiring norepinephrine, pneumonia requiring IV antibiotics Critical Care Time: The high probability of a clinically significant, sudden or life threatening deterioration of the patient's [cardiovascular, renal, infectious] system(s) required my full and direct attention, intervention and personal management. The critical care time is as shown. This time is in addition to time spent performing any reported procedures but includes the following: [x] Data and vital sign review and interpretation [x] Patient assessment, examination and intervention [x] Documentation [x] Medication orders and management Critical Care Time (min): 50 Coding Level of Care Code Critical Care >/= 30 minutes Critical care time (in minutes): 50 The high probability of a clinically significant, sudden or life threatening deterioration, as referenced in this documentation, required my full and direct attention, intervention and personal management. The critical care time shown is in addition to time spent performing any reported separately billable procedures and includes the following: [x] Data and vital sign review and interpretation [x ] Patient assessment, examination and intervention [x] Medication orders and management [x] Patient/Family updates as able [x] Care Coordination and Docu mentation. Diagnoses V-tach I47.20 Cardiac arrest I46.9 Acute respiratory failure J96.00 KARL (acute kidney injury) N17.9 Leukocytosis D72.829 Elevated troponin R77.8 Ischemic cardiomyopathy I25.5 Chronic systolic (congestive) heart failure I50.22 Acute DVT (deep venous thrombosis) I82.409
[2023-01-28 12:07] LABS: Adenovirus Not Detected (NOT DETECT); Chlamydia Pneumoniae Not Detected (NOT DETECT); Coronavirus 229E,HKU1,NL63,OC4 Not Detected (NOT DETECT); Human Metapneumovirus Not Detected (NOT DETECT); Human Rhinovirus/Enterovirus Not Detected (NOT DETECT); Influenza A Not Detected (NOT DETECT); Influenza A H1 Not Detected (NOT DETECT); Influenza A H1-2009 Not Detected (NOT DETECT); Influenza A H3 Not Detected (NOT DETECT); Influenza B Not Detected (NOT DETECT); Mycoplasma Pneumoniae Not Detected (NOT DETECT); Parainfluenza Virus Type 1 Not Detected (NOT DETECT); Parainfluenza Virus Type 2 Not Detected (NOT DETECT); Parainfluenza Virus Type 3 Not Detected (NOT DETECT); Parainfluenza Virus Type 4 Not Detected (NOT DETECT); Respiratory Syncytial Virus A Not Detected (NOT DETECT); Respiratory Syncytial Virus B Not Detected (NOT DETECT); SARS-COV-2 Not Detected (NOT DETECT)
[2023-01-28] MEDS: norepinephrine 8 MG in dextrose 5 % 500 ML 83.82 MG IV (12:52)
[2023-01-28 13:29] LABS: Hematocrit 22.1 % (42.0-52.0); Hemoglobin 7.3 g/dL (11.7-16.6); Mean Corpuscular Hemoglobin 32.2 pg (28.0-34.0); Mean Corpuscular Volume 97.4 fl (80-94); Platelet Count 165 10^3/cmm (130-400); Red Blood Count 2.27 10^6/uL (4.1-5.3); Red Cell Distribution Width 13.9 % (12.1-15.1); White Blood Count 18.4 10^3/uL (4.0-10.0)
[2023-01-28 13:33] LABS: Slide Review Slide Review Perform
[2023-01-28 13:54] LABS: Absolute Neutrophil 16.7 10^3/cmm (1.4-6.5); Absolute Segmented Neutrophil 13.4 10/cmm (1.6-7.1); Band Neutrophils Absolute 3.3 10^3/cmm (0.0-1.2); Basophils Absolute 0.4 10^3/cmm (0.0-0.2); Eosinophils 0 %; Lymphocytes 3 %; Lymphocytes Absolute 0.6 10^3/cmm (1.2-3.4); Monocytes Absolute 0.6 10^3/cmm (0.1-0.6); Platelet Estimate Normal (Normal); Segmented Neutrophils 73 %; Total Cells Counted 100 (0-100)
[2023-01-28 13:55] LABS: Dohle Bodies 1+; Toxic Granulation 1+
[2023-01-28 13:58] LABS: Anion Gap 15.4 (5-19); Blood Urea Nitrogen 34 mg/dL (8-23); Calcium 8.1 mg/dL (8.5-10.5); Carbon Dioxide 20 mmol/L (22-29); Chloride 98 mmol/L (98-107); Glucose 102 mg/dL (65-115); Osmolality Calculated 276 mOsm/kg (285-295); Potassium 4.4 mmol/L (3.5-5.1); Sodium 129 mmol/L (136-145)
[2023-01-28 15:12] LABS: Partial Thromboplastin Time 49.1 SECONDS (23.9-36.7)
--- NOTE | 2023-01-28 19:10 | PC.NURSE ---
Shift summary: Lidocaine titrate per MAR per order from Dr. Sen, uneventful shift, able to titrate pressor per MAR
[2023-01-28] MEDS: morphine 4 mg/mL SDV 1 mL 1 MG IVP (20:00)
[2023-01-28 21:11] LABS: Hematocrit 23.8 % (42.0-52.0); Hemoglobin 7.9 g/dL (11.7-16.6)
[2023-01-28] MEDS: norepinephrine 8 MG in dextrose 5 % 500 ML 53.34 MG IV (21:21)
[2023-01-28 21:33] LABS: Partial Thromboplastin Time 73.3 SECONDS (23.9-36.7)
[2023-01-29] VITALS (71 sets, daily range): BP systolic 98–142; BP diastolic 38–70; PULSE 55–76; RESP 15–28; TEMP 36.7–37.2; O2SAT 87–98; BMI 23.8
[2023-01-29] MEDS: albumin 25 G/100 ML BAG 60 G IV ×3 (00:01→16:30)
[2023-01-29] MEDS: morphine 4 mg/mL SDV 1 mL 1 MG IVP ×6 (00:03→21:59)
[2023-01-29] MEDS: piperacillin-tazobactam 3.375 GM in sodium chloride 0.9% (plus) 50 ML IV ×3 (02:36→16:29)
[2023-01-29 03:16] LABS: Basophils % 0.2 %; Eosinophils % 0.1 %; Hemoglobin 6.9 g/dL (11.7-16.6); Lymphocytes # 0.8 10^3/uL (0.8-4.8); Lymphocytes % 6.1 %; Mean Corpuscular HGB Conc 33.2 g/dL (30.0-36.0); Mean Corpuscular Hemoglobin 30.9 pg (28.0-34.0); Mean Corpuscular Volume 93.3 fl (80-94); Mean Platelet Volume 9.6 fL (7.4-10.4); Monocytes # 0.6 10^3/uL (0.2-0.9); Monocytes % 4.9 %; Neutrophils % 87.4 %; Nucleated Red Blood Cells % 0 %; Platelet Count 127 10^3/cmm (130-400); Red Blood Count 2.23 10^6/uL (4.1-5.3); Red Cell Distribution Width 16.7 % (12.1-15.1); White Blood Count 12.5 10^3/uL (4.0-10.0)
[2023-01-29 03:25] LABS: Hematocrit 20.8 % (42.0-52.0)
[2023-01-29 03:52] LABS: Alanine Aminotransferase 93 U/L (0-41); Albumin Level 2.9 g/dL (3.5-5.2); Alkaline Phosphatase 56 U/L (40-130); Anion Gap 14.2 (5-19); Aspartate Amino Transferase 117 U/L (0-40); Blood Urea Nitrogen 32 mg/dL (8-23); Carbon Dioxide 21 mmol/L (22-29); Chloride 98 mmol/L (98-107); Globulin 1.8 g/dL (1.3-4.6); Glucose 82 mg/dL (65-115); Magnesium 1.8 mg/dL (1.7-2.3); Osmolality Calculated 274 mOsm/kg (285-295); Potassium 4.2 mmol/L (3.5-5.1); Sodium 129 mmol/L (136-145); Total Bilirubin 1.5 mg/dL (0.15-1.2); Total Protein 4.7 g/dL (6.6-8.7)
--- NOTE | 2023-01-29 07:00 | XR_ITS ---
WS: [id number] EXAMINATION: XR chest 1V portable [id number] REASON FOR EXAM: resp failure COMPARISON: None available. ORDER DATE: 01/29/2023 7:00 AM TECHNIQUE: A single, portable frontal chest x-ray was obtained. X-RAY FINDINGS: Right IJ central venous catheter tip is in the cavoatrial region. Lungs: Hazy opacities in each lung base unchanged probably a combination of atelectasis and pleural effusion. Possible mild medial bibasal consolidation. No pneumothorax. Heart/Mediastinum: Unremarkable. No cardiomegaly. Bones/joints: Spinal instrumentation superimposing the central chest with a ICD noted on the left XR/XR chest 1V portable [id number] IMPRESSION: No change from previous
[2023-01-29] MEDS: pantoprazole 40 mg SDV IVP (08:28)
--- NOTE | 2023-01-29 09:05 | PM.PN ---
Subjective Subjective: Patient continues having drop in Hgb. In the past, anticoagulation had to be stopped because of anemia. Vitals/I&O/Wt Last Vital Signs Temp 98.0 F 01/29/23 08:00 Pulse 65 01/29/23 08:25 Resp 20 H 01/29/23 08:25 BP 112/50 01/29/23 08:00 Pulse Ox 92 01/29/23 08:25 O2 Del Method High Flow Nasal Cannula 01/29/23 08:25 O2 Flow Rate 10 01/29/23 08:25 FiO2 40 01/28/23 15:26 01/28/23 01/29/23 01/29/23 22:59 06:59 14:59 Intake Total 2198.387 / 3078.063 390.696 / 3468.759 Output Total 450 / 450 950 / 1400 200 / 200 Balance 1748.387 / 2628.063 -559.304 / 2068.759 -200 / -200 Weight last 48 hrs Weight 170 lb 13 oz Weight 170 lb 13 oz Physical Exam Narrative: GENERAL: Patient is alert, awake NECK: No jugular vein distension. [] HEENT: No cyanosis. No icterus. No pallor. [] HEART: Regular S1 and S2. LUNGS: Diminished air entry bilaterally CENTRAL NERVOUS SYSTEM: Grossly nonfocal. [] EXTREMITIES: Lower extremities with 1+ edema bilaterally. Urinary Catheter Management: Whitman: Cath Placed During This Visit: yes Reason for Continuing Indwelling Catheter: Accurate Measurement of Urinary Output in Critically Ill Patients Urinary Catheter Date of Insertion: 01/26/23 Data 01/29/23 03:09 01/29/23 03:09 Micro: Microbiology 01/26/23 10:55 Gram Stain - Final Sputum - Endotracheal Tube Aspirate Sputum Culture - Final A&P Assessment and plan (1) Ventricular tachycardia: (2) Elevated troponin I level: (3) Intermittent atrial fibrillation: (4) Acute DVT (deep venous thrombosis): (5) Ischemic cardiomyopathy: (6) KARL (acute kidney injury): Plan Patient's rhythm has stayed stable. No more ventricular tachycardia episodes. We weaned off lidocaine drip. Continue amiodarone. Swallowing is limited. Once stable can switch to p.o. amiodarone. Renal function has slight improvement. Patient has been requiring blood transfusions on heparin drip. He has extensive DVT extending from left common femoral vein down to below the knee. Given needs for blood transfusions, history of not tolerating anticoagulation and extensive DVT, we will proceed with IVC filter placement. Risks and benefits of the procedure have been discussed with the patient's family in detail. They understand the risks and benefits and wants to proceed. Levophed dose has come down since yesterday. We will have VT detection and therapy rate lowered by [employer] rep Family wants to continue with full code status for patient for now. Thank you for involving us with care of this patient. We will continue to follow. Please call with questions. Attestations Medical Necessity Statement*: Care expected to cross 2 midnights. Coding Level of Care Code Acute Code for [facility] Fwd Diagnoses Ventricular tachycardia I47.20 Elevated troponin I level R77.8 Intermittent atrial fibrillation I48.0 Acute DVT (deep venous thrombosis) I82.409 Ischemic cardiomyopathy I25.5 KARL (acute kidney injury) N17.9
[2023-01-29] MEDS: sodium chloride 0.9% 100 mL Bag 50 ML IV (09:29)
--- NOTE | 2023-01-29 10:04 | PM.CONSULT ---
Providers/Reason For Consult Consulting Physician/Specialty*: [facility]/Nephrology Reason for Consult*: KARL Attending Physician: Anna Diaz MD Primary Care Provider: Gene Peralta History of Present Illness History of Present Illness Jesus Saucedo is a 87 year old male Patient is a 87-year-old male with past medical history of ischemic cardiomyopathy history of recurrent V. tach, pacemaker defibrillator presented to the emergency department after he had a chest discomfort but was found to be in V. tach at a rate of 150. Patient became pulseless while in the ER and he received CPR with ROSC achieved. He was admitted to ICU. Patient was initially intubated but now extubated. He is on 60% high flow O2. Cardiology following the patient he was placed on Levophed and lidocaine drips. Patient's creatinine was normal at 1.0 in August 2022 but creatinine on presentation was 1.8 worsened to 2.4 and now has improved again to 1.9. Urine output has picked up. Review of Systems Narrative: Unable to obtain from patient Medications/Allergies Home Medications Medication Instructions Recorded Confirmed Last Taken Type rosuvastatin 40 mg tablet 40 mg PO BEDTIME 04/12/21 01/26/23 10/27/22 21:00 History multivit with min-folic 1 tab PO DAILY 04/25/21 01/26/23 10/28/22 08:00 History acid-lutein 400 mcg-250 mcg chewable tablet (Centrum Silver) levothyroxine 75 mcg tablet 75 mcg PO QAM 03/02/22 01/26/23 01/26/23 History albuterol sulfate 90 mcg/actuation 2 puff inhalation Q6H PRN 03/04/22 01/26/23 10/25/22 History aerosol inhaler Shortness Of Breath lidocaine 4 % topical patch 1 patch topical DAILY PRN Pain 04/13/22 01/26/23 Unknown History (Salonpas (lidocaine)) clopidogrel 75 mg tablet 75 mg PO QAM #90 tabs 05/11/22 01/26/23 10/28/22 08:00 Rx ferrous sulfate 325 mg (65 mg 325 mg PO DAILY #90 tabs 07/11/22 01/26/23 10/28/22 Rx iron) tablet (Feosol) 0800 melatonin 5 mg disintegrating 5 mg PO BEDTIME 10/28/22 01/26/23 10/27/22 21:00 History tablet potassium chloride 20 mEq 60 meq PO BID 30 days #180 tabs 10/31/22 01/26/23 Unknown Rx tablet,extended release(part/cryst) (Klor-Con M) metoprolol tartrate 25 mg tablet 12.5 mg PO BID #60 tabs 11/17/22 01/26/23 Unknown Rx amiodarone 200 mg tablet 200 mg PO BID #180 tabs 01/11/23 01/26/23 Unknown Rx acetaminophen 650 mg 1,300 mg PO Q12H PRN Pain 01/26/23 01/26/23 Unknown History tablet,extended release amiodarone 100 mg tablet (Pacerone) 100 mg PO DAILY 01/26/23 01/26/23 01/25/23 History bumetanide 2 mg tablet 2 mg PO BID 01/26/23 01/26/23 Unknown History docusate sodium 100 mg capsule 100 mg PO BID 01/26/23 01/26/23 Unknown History (Stool Softener) nitroglycerin 0.4 mg sublingual 0.4 mg sublingual Q5M PRN Chest 01/26/23 01/26/23 Unknown History tablet (Nitrostat) Pain ondansetron 4 mg disintegrating 4 mg PO Q8H PRN Nausea And Vomiting 01/26/23 01/26/23 Unknown History tablet polyethylene glycol 3350 17 17 g PO DAILY PRN constipation 01/26/23 01/26/23 Unknown History gram/dose oral powder (Miralax) prochlorperazine maleate 5 mg 5 mg PO Q6H PRN Nausea And Vomiting 01/26/23 01/26/23 Unknown History tablet Allergies Allergy/AdvReac Type Severity Reaction Status Date / Time JACKIE Inhibitors Allergy Unknown Unknown Verified 12/24/22 10:20 Latex, Natural Rubber Allergy Unknown ALGY-Rash Verified 12/24/22 10:20 aspirin Allergy ALGY-Hives Verified 12/24/22 10:20 Current Medications Generic Name Dose Route Start Last Admin Trade Name Freq PRN Reason Stop Dose Admin Atorvastatin Calcium 80 mg 01/26/23 21:00 01/28/23 21:00 Atorvastatin 40 Mg Tablet PO Not Given BEDTIME RICARDO Heparin Sodium (Porcine) 0 unit 01/26/23 07:50 01/28/23 02:55 Heparin 5,000 Unit/Ml Inj 1 Ml IV 1,550 unit PRN PRN Administration Heparin weight-base protocol Protocol Amiodarone HCl 900 mg/ 518 mls @ 0 mls/hr 01/26/23 07:30 01/29/23 02:00 Dextrose/ IV Miscellaneous IV 0.5 mg/min Supplies .Q0M RICARDO 17.27 mls/hr Titration Protocol Per Protocol Heparin Sodium/Sodium Chloride 25,000 unit in 500 mls @ 0 mls/hr 01/26/23 08:00 01/29/23 03:53 Heparin Drip IV 9.73 unit/kg/hr .Q0M RICARDO 15 mls/hr Titration Protocol Per Protocol Norepinephrine Bitartrate 4 mg 254 mls @ 0 mls/hr 01/26/23 08:00 01/27/23 11:00 / Dextrose IV Infused .Q0M RICARDO Titration Protocol Per Protocol Vancomycin HCl 1,000 mg/ 250 mls @ 250 mls/hr 01/27/23 11:00 01/28/23 19:21 Sodium Chloride IV Infused Q24H RICARDO Infusion Protocol As Directed Piperacillin Sod/Tazobactam 50 mls @ 12.5 mls/hr 01/27/23 09:15 01/29/23 08:27 Sod 3.375 gm/ Sodium Chloride IV 12.5 mls/hr Q8H RICARDO Administration Norepinephrine Bitartrate 8 mg 508 mls @ 0 mls/hr 01/27/23 10:30 01/28/23 22:30 / Dextrose IV 10 mcg/min .Q0M RICARDO 38.1 mls/hr Titration Protocol Per Protocol Lidocaine HCl/Dextrose 2,000 mg in 500 mls @ 15 mls/hr 01/27/23 18:45 01/28/23 19:05 Lidocaine Drip IV 0 mg/min .Q24H RICARDO 0 mls/hr Infusion 1 MG/MIN Albumin Human 25 g in 100 mls @ 60 mls/hr 01/28/23 07:45 01/29/23 08:28 Albumin IV 60 mls/hr Q8H RICARDO Administration Levothyroxine Sodium 75 mcg 01/27/23 06:00 01/29/23 04:39 Levothyroxine 75 Mcg Tablet PO Not Given QAM RICARDO Morphine Sulfate 1 mg 01/28/23 20:12 01/29/23 09:16 Morphine 4 Mg/Ml Sdv 1 Ml IVP 1 mg Q4H PRN Administration SEVERE PAIN Pantoprazole Sodium 40 mg 01/27/23 09:00 01/29/23 08:28 Pantoprazole 40 Mg Sdv IVP 40 mg DAILY RICARDO Administration Sodium Chloride 50 ml 01/28/23 14:19 01/29/23 09:29 Sodium Chloride 0.9% 100 Ml Bag IV 01/29/23 14:20 50 ml PRN PRN Administration Blood transfusion prime and flush PFSH Acute PFSH: Medical History (Updated 01/27/23 @ 18:37 by Mike Gonzalez MD) Acute diastolic (congestive) heart failure Acute RI Acute non-ST elevation myocardial infarction (NSTEMI) Acute on chronic systolic heart failure Anemia Anemia Atherosclerosis of coronary artery of [place] heart without angina pectoris Atrial fibrillation CAD (coronary artery disease) Cardiomyopathy History of ischemic cardiomyopathy, do not need revascularization, continue optimal medical regimen Chronic kidney disease Coronary artery disease Coronary artery disease Defibrillator discharge Hyperlipidemia Hypertension Well-controlled Hypokalemia Sustained VT (ventricular tachycardia) Continue current regimen including beta-ashley, amiodarone. Appear to be stable not in VT anymore. Can be discharged home. Syncope Tubular adenoma of colon V-tach Ventricular tachycardia Ventricular tachycardia Wide-complex tachycardia Surgical History History of back surgery History of cardiac defibrillator placement Status post implantation of automatic cardioverter/defibrillator (AICD) Stented coronary artery Family History Mother No problems noted. Father No problems noted. Other CAD (coronary artery disease) Social History Smoking and tobacco status: never smoked Alcohol intake: never Substance/Drug Use: never Adopted: No Caregiver/support person: Yes Housing: Snf Marital status: / Current occupational status: retired Vitals/I&O/Wt Last Vital Signs Temp 98.3 F 01/29/23 09:57 Pulse 64 01/29/23 09:57 Resp 20 H 01/29/23 09:57 BP 99/45 01/29/23 09:57 Pulse Ox 92 01/29/23 09:57 O2 Del Method High Flow Nasal Cannula 01/29/23 08:25 O2 Flow Rate 10 01/29/23 08:25 FiO2 40 01/28/23 15:26 01/28/23 01/29/23 01/29/23 22:59 06:59 14:59 Intake Total 2198.387 / 3078.063 390.696 / 3468.759 0 / 0 Output Total 450 / 450 950 / 1400 200 / 200 Balance 1748.387 / 2628.063 -559.304 / 2068.759 -200 / -200 Weight last 48 hrs Weight 77.479 kg Weight 77.479 kg Physical Exam Narrative: Patient is awake, no distress, on high flow O2 60% FiO2 S1-S2 regular rate and rhythm per report Lungs clear per report Has pedal edema Urinary Catheter Management: Whitman: Cath Placed During This Visit: yes Reason for Continuing Indwelling Catheter: Accurate Measurement of Urinary Output in Critically Ill Patients Urinary Catheter Date of Insertion: 01/26/23 Data 01/29/23 03:09 01/29/23 03:09 Micro: Microbiology 01/26/23 10:55 Gram Stain - Final Sputum - Endotracheal Tube Aspirate Sputum Culture - Final A&P Assessment and plan (1) KARL (acute kidney injury): Plan 1. Acute kidney injury: Secondary to cardiac arrest, patient's creatinine was 1.2 in August 2022. Now has a creatinine peak of 2.4 improved to 1.9 currently, urine output picking up. No indication for dialysis, continue to monitor and avoid nephrotoxins and IV contrast studies. Wean Levophed as tolerated. 2. Metabolic acidosis: Mild, monitor 3. Hyponatremia: Mild, monitor, 4. Status postcardiac arrest with V. tach: Status post CPR and ROSC. Off lidocaine drip, and amiodarone drip managed by cardiology. Patient evaluated using audiovisual cart. Time spent 45 minutes. Consult Attestations Medical Necessity Statement: Per medicine Coding Level of Care Code Acute Code for [facility] Fwd Diagnoses KARL (acute kidney injury) N17.9
--- NOTE | 2023-01-29 10:28 | XACV_ITS ---
Ht: 180 cm Wt: 77 kg BSA: 1.97 m2 Any Known Allergies: Natural rubber and latex Gender: Male : 1935 Exam Type: Invasive Peripheral Vascular Procedure(s): Procedure Description: Peripheral vascular Intervention Procedure Description: PV IVC Filter Placement Exam Priority: Routine Abdominal Interventional Findings INDICATION: Patient has been requiring blood transfusions on heparin drip. He has extensive DVT extending from left common femoral vein down to below the knee. Given needs for blood transfusions, history of not tolerating anticoagulation and extensive DVT, we will proceed with IVC filter placement. Risks and benefits of the procedure have been discussed with the patient's family in detail. They understand the risks and benefits and wants to proceed. IVC filter placement : We obtained access in right common femoral vein. 6 Frisian pigtail catheter was used to perform IVC venogram. Renal veins were identified. We then proceeded with placement of Cook Celect IVC filter under fluoroscopic guidance below the renal veins. At this time, sheath was removed and pressure was held to attain hemostasis.. Conclusions Status post successful IVC filter placement. Recommendations If requires further blood transfusions, can stop anticoagulation. Access Site Site: Right Femoral vein Sheath Size: 6 Fr Hemost... Method: Manual Compression Hemost... Success: Successful Procedure Details Findings Procedure Consent Obtained. Pre-Procedure Time Out. Identified patient by full name and date of as verbalized by the patient/guarantor. Does the consent match the physician's order: Yes. Accurate & Complete Informed Consent: Yes. Inpatient/Outpatient History & Physical on Chart: Yes. If H&P is completed, is and addenduem needed: No; If yes, is the addendum complete: N/A. Visualize and Verify Site with Patient/Guarantor: N/A. Relevant Radiology Images available: Yes. Pre-op teaching completed and patient verbalized understanding. The risks, benefits, and alternatives of sedation and/or procedure were discussed by physician. The patient agrees to continue. Procedure started. [facility] Clinical Fraility Score: 7: Severely Frail. Correct patient, site and procedure confirmed by cath team. PERRLA. Strong, equal hand automatic lump making machine tender bilaterally. Lungs clear x 5 lobes. IV Site on Arrival: 22 gauge in the right forearm and a 20g triple lumen. Patient arrived with several drips hanging. They are being managed by an ICU nurse. IV Fluids: 0.9% NaCl at KVO. 0 mL infused prior to laboratory animal care veterinarian. Oxygen started at 10liters/min via nasal canula. bilateral groins was prepped with chloroprep then draped in the usual sterile fashion. Physician arrived. Baseline sample Acquired. HR: 61 BPM. Physician scrubbed in. Time out performed with cath team. Lidocaine 1% infiltrated to the right groin. Venous access with a micropuncture kit. A 6 belarusian Angled Pig catheter in over wire. Abdominal aortogram performed in AP @ 10 mL/sec for a total of 30 mL. Catheter removed over the standard wire. The 6Fr venous sheath exchanged for the IVC filter sheath. IVC filter inserted through the sheath and deployed successfully. Lot# [id number]. IVC filter deployment system removed. Sheath(s) removed and manual pressure held until hemostasis was achieved. Sterile 4x4 and Op-site applied to the puncture site. No oozing or hematoma noted. Post sheath removal instructions were given and the patient verbalized understanding. A Manual Compression was successful obtaining hemostatsis at the Right Femoral vein insertion site. Post Procedure: Pulses reassessed and unchanged. PERRLA. Strong, equal hand automatic lump making machine tender bilaterally. No VTE prophylaxis required. Complications: None. Estimated blood loss: 5mL-10mL. Responsiveness - Normal response to verbal stimuli; alert and oriented, PERRLA. Airway - Unaffected, no intervention required; spontaneous ventilation. Circulation: W/N/L, pulses unchanged. Nausea/Vomiting: No. Procedure completed. Patient transferred by bed to ICU. Vital chart was stopped. I, the attending physician, have reviewed and verified all procedure medications. Yes, all medications given per verbal order History/Risk Factors Hypertension: Yes Dyslipidemia: Yes Peripheral Arterial Disease (PAD): No Myocardial Infarction (TN): Yes Obesity: No Renal Disease: No Tobacco Use: Never Prior Interventions PCI: Yes CABG: No Valve Surgery: No Date of PCI: 04/25/2021 Report Signatures Finalized by Ayaan Sen MD on 02/06/2023 10:37 AM
[2023-01-29] MEDS: vancomycin 1,000 MG in sodium chloride 0.9% 250 ML 250 MG IV (11:17)
--- NOTE | 2023-01-29 12:01 | PC.SOCIAL ---
IMM Update pg 2 of IMM updated and reviewed w/ patient. Copy provided and Copy dated, initialed and placed in chart.
--- NOTE | 2023-01-29 13:14 | W.PM.OPSUD ---
Surgery/Procedure H&P Update DATE OF PROCEDURE: January 29, 2023 DATE H&P PERFORMED: 01/26/23 H&P UPDATE INFORMATION: I have reviewed H&P completed within last 30 days, I have examined patient prior to procedure and No changes to prior documentation PREOP DIAGNOSIS: DVT/ Anemia/ blood transfusions PRIMARY INDICATION FOR PROCEDURE: DVT/ Anemia/ blood transfusions PLANNED PROCEDURE: IVC filter placement PATIENT REASSESSED PRIOR TO SEDATION, WITH NO CHANGE NOTED: Yes PHYSICAL EXAM: alert, clear to auscultation bilaterally (Mild bilateral crackles.) and regular rate & rhythm AIRWAY EVAL/ANESTHESIA PLAN: normal airway, ASA IV, Local Anesthesia, Risks, benefits & alternatives of sedation and/or procedure discussed and Patient agrees to continue as planned ADDITIONAL INFORMATION: Moderate sedation
--- NOTE | 2023-01-29 14:21 | PC.NURSE ---
Patient arrived back in the ICU at 1350 from lab engineer. Patient had a sheath removed and puncture site is dry and clean. Heparin was stopped per Dr. Sen's orders. Heparin will be restarted after 4 hours of observation. Patient is stable at this point.
[2023-01-29] MEDS: guaiFENesin-dextromethorphan UDC 10 mL 5 ML PO (15:04)
--- NOTE | 2023-01-29 15:22 | PC.SLP ---
Orders received, chart reviewed. Patient just returned from clinical laboratory service teacher and will remain flat for 6 hours so his swallowing evaluation cannot be completed until 01/30/23.
[2023-01-29] MEDS: norepinephrine 8 MG in dextrose 5 % 500 ML 30.48 MG IV (16:06)
--- NOTE | 2023-01-29 16:08 | P.PN_ITS ---
Subjective Subjective: Underwent placement of IVC filter today. Currently on HFNC with 02 sat 90%. He is noted to be coughing, suspect a combination of pulmonary edema and pneumonia. Leukocytosis trending down. Received 1PRBC transfusion yesterday. [employer] rep at bedside currently adjusting AICD settings. Medications: Reviewed: Yes Medication Review Details: Current Medications Acetaminophen (Acetaminophen 325 Mg Tablet) 650 mg PO Q6H PRN PRN Reason: MILD PAIN Atorvastatin Calcium (Atorvastatin 40 Mg Tablet) 80 mg PO BEDTIME RICARDO Last Admin: 01/26/23 21:39 Dose: 80 mg Heparin Sodium (Porcine) (Heparin 5,000 Unit/Ml Inj 1 Ml) 0 unit IV PRN PRN; Protocol PRN Reason: Heparin weight-base protocol Last Admin: 01/27/23 03:34 Dose: 3,100 unit Amiodarone HCl 900 mg/Dextrose/ IV Miscellaneous Supplies 518 mls @ 0 mls/hr IV .Q0M RICARDO; Protocol Last Admin: 01/27/23 15:46 Dose: 1 mg/min, 34.53 mls/hr Fentanyl 2,500 mcg/ Sodium (Chloride) 250 mls @ 0 mls/hr IV .Q0M [facility]IC[facility]; Protocol Last Titration: 01/27/23 00:15 Dose: 125 mcg/hr, 12.5 mls/hr Heparin Sodium/Sodium Chloride (Heparin Drip) 25,000 unit in 500 mls @ 0 mls/hr IV .Q0M [facility]; Protocol Last Titration: 01/27/23 13:08 Dose: 5.84 unit/kg/hr, 9 mls/hr Norepinephrine Bitartrate 4 mg (/ Dextrose) 254 mls @ 0 mls/hr IV .Q0M [facility]; Protocol Last Admin: 01/27/23 05:03 Dose: 14 mcg/min, 53.34 mls/hr Sodium Chloride (Sodium Chloride 0.9%) 500 mls @ 0 mls/hr IV .Q0M [facility] Propofol (Diprivan) 1,000 mg in 100 mls @ 0 mls/hr IV .Q0M [facility]; Protocol Last Admin: 01/27/23 01:11 Dose: 20 mcg/kg/min, 9.25 mls/hr Vancomycin HCl 1,000 mg/ (Sodium Chloride) 250 mls @ 250 mls/hr IV Q24H [facility]; Protocol Last Admin: 01/27/23 11:09 Dose: 250 mls/hr Piperacillin Sod/Tazobactam (Sod 3.375 gm/ Sodium Chloride) 50 mls @ 12.5 mls/hr IV Q8H [facility] Last Admin: 01/27/23 16:51 Dose: 12.5 mls/hr Norepinephrine Bitartrate 8 mg (/ Dextrose) 508 mls @ 0 mls/hr IV .Q0M [facility]; Protocol Levothyroxine Sodium (Levothyroxine 75 Mcg Tablet) 75 mcg PO QAM [facility] Last Admin: 01/27/23 05:09 Dose: 75 mcg Ondansetron HCl (Ondansetron 2 Mg/Ml Sdv 2 Ml) 4 mg IVP Q6H PRN PRN Reason: NAUSEA AND VOMITING Pantoprazole Sodium (Pantoprazole 40 Mg Sdv) 40 mg IVP DAILY [facility] Last Admin: 01/27/23 08:20 Dose: 40 mg Vitals/I&O/Wt Last Vital Signs Temp 98.3 F 01/29/23 12:00 Pulse 63 01/29/23 14:00 Resp 21 H 01/29/23 14:00 BP 126/45 01/29/23 14:00 Pulse Ox 90 01/29/23 14:00 O2 Del Method High Flow Nasal Cannula 01/29/23 14:00 O2 Flow Rate 10 01/29/23 11:30 FiO2 40 01/28/23 15:26 01/29/23 01/29/23 01/29/23 06:59 14:59 22:59 Intake Total 390.696 / 3468.759 1240.723 / 1240.723 261.042 / 1501.765 Output Total 950 / 1400 500 / 500 Balance -559.304 / 2068.759 740.723 / 740.723 261.042 / 1001.765 Weight last 48 hrs Weight 77.479 kg Weight 77.479 kg Physical Exam Narrative: General: coughing, family providing bedside suctioning HEENT: PERRLA, pupils bilaterally equal and reactive, pallors not present Chest: B/L crackles CVS: S1-S2 regular, no murmurs, no tachycardia, no gallops, no rubs Abdomen: Soft, nontender, no organomegaly, bowel sounds present Neuro: No focal deficits, no facial deformity, AO x3, power 5/5 in all limbs Urinary Catheter Management: Whitman: Cath Placed During This Visit: yes Reason for Continuing Indwelling Catheter: Accurate Measurement of Urinary Out put in Critically Ill Patients Urinary Catheter Date of Insertion: 01/26/23 Data 01/29/23 03:09 01/29/23 03:09 Micro: Microbiology 01/26/23 10:55 Gram Stain - Final Sputum - Endotracheal Tube Aspirate Sputum Culture - Final A&P Assessment and plan (1) V-tach: Patient presented with ventricular tachycardia. He has had previous similar presentations in the past. Electrolytes at this time are normal including magnesium and TSH Echo shows diminished ejection fraction of around 40% Appreciate cardiology consultation Currently on amiodarone drip , lidocaine drip titrated off At this point cannot continue patient's home metoprolol secondary to hypoten felix, being on levophed Cardiology to determine if pacemaker/defibrillator settings are adequate, rep currently at bedside making adjustments (2) Cardiac arrest: Status postcardiac arrest Still requiring norepinephrine @ 8mcg Electrolytes have been checked and normal Echocardiogram as above He is neurologically intact (3) Acute respiratory failure: Extubation occurred on 01/27. He is tolerating high flow without difficulty. has some cough, needs frequent suctioning Left base infiltrate noted on x-ray. Possible small effusions. Secondary to elevated white count, temperature elevations, secretions, concerned about developing pneumonia that may have been present on admission. MRSA PCR, sputum culture pending. Empirically on zosyn and vanc which we will continue (4) KARL (acute kidney injury): Significant acute kidney injury postcode Whitman has been placed. Renal function currently improving at 1.9; urine output 1900 cc Overall needs diuresis but not able to accomplish secondary to hypotension Nephrology consultation appropriate CBC, BMP in the morning (5) Leukocytosis: Elevation in white blood cell count likely secondary to demargination from stress from code This is improved Urinalysis was not concerning Infiltrate is present on x-ray. Start vancomycin and Zosyn and continue to monitor (6) Elevated troponin: Cardiology following Currently on a heparin drip (7) Ischemic cardiomyopathy: Echo with LV systolic function is moderately reduced with EF of 35-40% (8) Chronic systolic (congestive) heart failure: Patient with history of chronic systolic heart failure He has some evidence of lower extremity edema. Consideration of Lasix dose, if blood pressure increases and kidney function remains stable (9) Acute DVT (deep venous thrombosis): Patient with acute DVT Placed on a heparin drip on admission Pulmonary embolism is not excluded, but patient's renal function is such that CTA is not warranted now with patient improvement Continue anticoagulation with heparin, and hopefully in the future can convert to oral agents i as patient improves Has been suffering Hb drop and needing blood transfusion while on heparin infusion, may not be able to tolerate a/c. High clot burden. IVC filter placed today Plan Multiple other medical problems as outlined in past medical history Full code currently Heparin will suffice for DVT prophylaxis Attestations Medical Necessity Statement*: s/p IVC filter today, amiodarone infusion, close monitoring of resp status, neeeds AICS settings optimized Coding Level of Care Code Critical Care >/= 30 minutes Diagnoses V-tach I47.20 Cardiac arrest I46.9 Acute respiratory failure J96.00 KARL (acute kidney injury) N17.9 Leukocytosis D72.829 Elevated troponin R77.8 Ischemic cardiomyopathy I25.5 Chronic systolic (congestive) heart failure I50.22 Acute DVT (deep venous thrombosis) I82.409
[2023-01-29] MEDS: heparin drip 25,000 UNIT/500 ML PREMIX 22 UNIT IV (16:53)
--- NOTE | 2023-01-29 16:53 | P.PCN_ITS ---
Procedure Note: Date of procedure: 01/29/23 Pre-procedure diagnosis: DVT/ Anemia/ transfusion requirement Post-procedure diagnosis: same Procedure: IVC filter placement: We obtained access in right common femoral vein. 6 Marshallese pigtail catheter was used to perform IVC venogram. Renal veins were identified. We then proceeded with placement of Cook Celect IVC filter under fluoroscopic guidance below the renal veins. At this time, sheath was removed and pressure was held to attain hemostasis. Op report anesthesia: Local Performing Provider: Ayaan Sen Estimated blood loss (mL): 5 Complications: None Condition: critical Disposition: ICU Coding Level of Care Code Acute Code for g Fwkaycee
[2023-01-29 17:55] LABS: Hematocrit 24.1 % (42.0-52.0); Hemoglobin 8.1 g/dL (11.7-16.6)
[2023-01-29] MEDS: lidocaine drip 2,000 MG/500 ML PREMIX 15 MG IV (19:57)
[2023-01-29 22:36] LABS: Partial Thromboplastin Time 66.2 SECONDS (23.9-36.7)
[2023-01-29] MEDS: morphine 4 mg/mL SDV 1 mL 2 MG IVP (23:13)
[2023-01-29] MEDS: FUROsemide 10 mg/mL SDV 4mL 40 MG IVP (23:24)
[2023-01-29] MEDS: sodium chloride 3% 100 ML in empty flexible container 1 EACH 200 ML IV (23:25)
[2023-01-29] MEDS: albumin 25 G/100 ML BAG 50 G IV (23:25)
[2023-01-30] VITALS (68 sets, daily range): BP systolic 84–131; BP diastolic 41–79; PULSE 48–78; RESP 14–27; TEMP 36.9–37.1; O2SAT 89–98; BMI 25.4
[2023-01-30] MEDS: morphine 4 mg/mL SDV 1 mL 2 MG IVP ×6 (01:04→20:55)
[2023-01-30] MEDS: piperacillin-tazobactam 3.375 GM in sodium chloride 0.9% (plus) 50 ML IV ×3 (01:05→17:07)
[2023-01-30 02:58] LABS: Basophils % 0.1 %; Eosinophils # 0.1 10^3/uL (0.0-0.8); Eosinophils % 0.6 %; Hematocrit 23.5 % (42.0-52.0); Hemoglobin 7.8 g/dL (11.7-16.6); Lymphocytes # 0.6 10^3/uL (0.8-4.8); Lymphocytes % 6.8 %; Mean Corpuscular HGB Conc 33.2 g/dL (30.0-36.0); Mean Corpuscular Volume 93.3 fl (80-94); Mean Platelet Volume 9.3 fL (7.4-10.4); Monocytes # 0.5 10^3/uL (0.2-0.9); Monocytes % 5.7 %; Neutrophils # 7.56 10^3/uL (1.8-7.7); Neutrophils % 85.8 %; Nucleated Red Blood Cells % 0 %; Platelet Count 112 10^3/cmm (130-400); Red Blood Count 2.52 10^6/uL (4.1-5.3); Red Cell Distribution Width 16.7 % (12.1-15.1); White Blood Count 8.8 10^3/uL (4.0-10.0)
[2023-01-30 03:20] LABS: Partial Thromboplastin Time 75.6 SECONDS (23.9-36.7)
[2023-01-30 03:23] LABS: Alanine Aminotransferase 68 U/L (0-41); Albumin Level 3.3 g/dL (3.5-5.2); Alkaline Phosphatase 51 U/L (40-130); Anion Gap 13.4 (5-19); Aspartate Amino Transferase 81 U/L (0-40); Blood Urea Nitrogen 29 mg/dL (8-23); Calcium 8.2 mg/dL (8.5-10.5); Carbon Dioxide 21 mmol/L (22-29); Chloride 103 mmol/L (98-107); Globulin 1.6 g/dL (1.3-4.6); Glucose 84 mg/dL (65-115); Osmolality Calculated 283 mOsm/kg (285-295); Potassium 3.4 mmol/L (3.5-5.1); Sodium 134 mmol/L (136-145); Total Bilirubin 1.3 mg/dL (0.15-1.2); Total Protein 4.9 g/dL (6.6-8.7)
--- NOTE | 2023-01-30 04:00 | XRR_ITS ---
PROCEDURE INFORMATION: Exam: XR Chest Exam date and time: 01/30/2023 5:32 AM Age: 87 years old Clinical indication: Patient HX: F/u for pulmonary edema; Additional info: Follow up for pulmonary edema TECHNIQUE: Imaging protocol: Radiologic exam of the chest. Views: 1 view. COMPARISON: CR XR chest 1V portable [id number] 01/29/2023 7:00 AM FINDINGS: Tubes, catheters and devices: Right IJ central venous catheter tip is in the right atrium. Left-sided pacing device Lungs: Worsening pulmonary vascular congestion/interstitial edema. Pleural spaces: Bilateral pleural effusions Heart/Mediastinum: Cardiomegaly Bones/joints: Postop surgical changes thoracolumbar spine XR/XR chest 1V portable [id number] IMPRESSION: 1. Cardiomegaly with worsening pulmonary vascular congestion/edema. Bilateral pleural effusion. 2. Right IJ central venous catheter tip is in the right atrium. This however appears stable when compared to the previous examination.
[2023-01-30] MEDS: albumin 25 G/100 ML BAG 60 G IV ×2 (08:14→16:02)
[2023-01-30] MEDS: FUROsemide 10 mg/mL SDV 4mL 40 MG IVP ×2 (09:44→17:22)
[2023-01-30] MEDS: pantoprazole 40 mg SDV IVP (09:44)
[2023-01-30 10:24] LABS: Partial Thromboplastin Time 77.7 SECONDS (23.9-36.7)
[2023-01-30 10:27] LABS: Vancomycin Trough 9.8 ug/mL (10-15)
[2023-01-30] MEDS: vancomycin 1,000 MG in sodium chloride 0.9% 250 ML 250 MG IV (11:05)
--- NOTE | 2023-01-30 11:29 | PM.PN ---
Subjective Subjective: Overnight events noted, patient had AICD firing multiple times and he is currently back on heparin drip, Levophed and lidocaine drip and amnio drips. Medications: Reviewed: Yes Vitals/I&O/Wt Last Vital Signs Temp 98.7 F 01/30/23 07:39 Pulse 62 01/30/23 09:40 Resp 20 H 01/30/23 09:40 BP 117/53 01/30/23 08:00 Pulse Ox 93 01/30/23 09:40 O2 Del Method Nasal Cannula 01/29/23 18:00 O2 Flow Rate 40 01/30/23 09:40 FiO2 40 01/30/23 09:40 01/29/23 01/30/23 01/30/23 22:59 06:59 14:59 Intake Total 499.934 / 1740.657 724.375 / 2465.032 241.018 / 241.018 Output Total 1025 / 1525 1000 / 2525 Balance -525.066 / 215.657 -275.625 / -59.968 241.018 / 241.018 Weight last 48 hrs Weight 83 kg Weight 77.479 kg Physical Exam Narrative: Patient is awake, no distress, on high flow O2 60% FiO2 S1-S2 regular rate and rhythm per report Lungs clear per report Has pedal edema Urinary Catheter Management: Whitman: Cath Placed During This Visit: yes Reason for Continuing Indwelling Catheter: Accurate Measurement of Urinary Output in Critically Ill Patients Urinary Catheter Date of Insertion: 01/26/23 Data 01/30/23 02:44 01/30/23 02:44 A&P Assessment and plan (1) KARL (acute kidney injury): Plan 1. Acute kidney injury: Secondary to cardiac arrest, patient's creatinine was 1.2 in August 2022. Now has a creatinine peak of 2.4 improved to 1.7, currently, urine output picking up. No indication for dialysis, continue to monitor and avoid nephrotoxins and IV contrast studies. 2. Metabolic acidosis: Mild, monitor 3. Hyponatremia: Mild, monitor, 4. Status postcardiac arrest with V. tach: Status post CPR and ROSC. -Patient had AICD firing -restarted back on amnio drip, lidocaine drip, Levophed drip Patient evaluated using audiovisual cart. Time spent 45 minutes. Attestations Medical Necessity Statement*: Per medicine Coding Level of Care Code Acute Code for Chg Fwd Diagnoses KARL (acute kidney injury) N17.9
[2023-01-30] MEDS: magnesium sulfate premix 2 GM/50 ML PIGGYBACK IV (12:20)
[2023-01-30] MEDS: potassium chloride premix 100 ML 25 MEQ IV ×2 (12:22→16:05)
--- NOTE | 2023-01-30 14:39 | P.PN_ITS ---
Subjective Subjective: Patient has episode of VT overnight though non sustained, started back on lido along with amiodarone drip, this morning he is feeling somewhat better denoes chest pain and shorness of breath , no mor VT Medications: Reviewed: Yes Medication Review Details: Current Medications Acetaminophen (Acetaminophen 325 Mg Tablet) 650 mg PO Q6H PRN PRN Reason: MILD PAIN Atorvastatin Calcium (Atorvastatin 40 Mg Tablet) 80 mg PO BEDTIME [facility]ARDO Last Admin: 01/26/23 21:39 Dose: 80 mg Heparin Sodium (Porcine) (Heparin 5,000 Unit/Ml Inj 1 Ml) 0 unit IV PRN PRN; Protocol PRN Reason: Heparin weight-base protocol Last Admin: 01/27/23 03:34 Dose: 3,100 unit Amiodarone HCl 900 mg/Dextrose/ IV Miscellaneous Supplies 518 mls @ 0 mls/hr IV .Q0M [facility]; Protocol Last Admin: 01/27/23 15:46 Dose: 1 mg/min, 34.53 mls/hr Fentanyl 2,500 mcg/ Sodium (Chloride) 250 mls @ 0 mls/hr IV .Q0M [facility]; Protocol Last Titration: 01/27/23 00:15 Dose: 125 mcg/hr, 12.5 mls/hr Heparin Sodium/Sodium Chloride (Heparin Drip) 25,000 unit in 500 mls @ 0 mls/hr IV .Q0M [facility]; Protocol Last Titration: 01/27/23 13:08 Dose: 5.84 unit/kg/hr, 9 mls/hr Norepinephrine Bitartrate 4 mg (/ Dextrose) 254 mls @ 0 mls/hr IV .Q0M [facility]; Protocol Last Admin: 01/27/23 05:03 Dose: 14 mcg/min, 53.34 mls/hr Sodium Chloride (Sodium Chloride 0.9%) 500 mls @ 0 mls/hr IV .Q0M [facility] Propofol (Diprivan) 1,000 mg in 100 mls @ 0 mls/hr IV .Q0M [facility]; Protocol Last Admin: 01/27/23 01:11 Dose: 20 mcg/kg/min, 9.25 mls/hr Vancomycin HCl 1,000 mg/ (Sodium Chloride) 250 mls @ 250 mls/hr IV Q24H [facility]; Protocol Last Admin: 01/27/23 11:09 Dose: 250 mls/hr Piperacillin Sod/Tazobactam (Sod 3.375 gm/ Sodium Chloride) 50 mls @ 12.5 mls/hr IV Q8H [facility] Last Admin: 01/27/23 16:51 Dose: 12.5 mls/hr Norepinephrine Bitartrate 8 mg (/ Dextrose) 508 mls @ 0 mls/hr IV .Q0M [facility]; Protocol Levothyroxine Sodium (Levothyroxine 75 Mcg Tablet) 75 mcg PO QAM [facility] Last Admin: 01/27/23 05:09 Dose: 75 mcg Ondansetron HCl (Ondansetron 2 Mg/Ml Sdv 2 Ml) 4 mg IVP Q6H PRN PRN Reason: NAUSEA AND VOMITING Pantoprazole Sodium (Pantoprazole 40 Mg Sdv) 40 mg IVP DAILY [facility] Last Admin: 01/27/23 08:20 Dose: 40 mg Vitals/I&O/Wt Last Vital Signs Temp 98.7 F 01/30/23 07:39 Pulse 57 L 01/30/23 14:30 Resp 20 H 01/30/23 14:30 BP 113/46 01/30/23 14:30 Pulse Ox 95 01/30/23 14:30 O2 Del Method Nasal Cannula 01/29/23 18:00 O2 Flow Rate 40 01/30/23 14:04 FiO2 40 01/30/23 14:04 01/29/23 01/30/23 01/30/23 22:59 06:59 14:59 Intake Total 499.934 / 1740.657 724.375 / 2465.032 836.763 / 836.763 Output Total 1025 / 1525 1000 / 2525 Balance -525.066 / 215.657 -275.625 / -59.968 836.763 / 836.763 Weight last 48 hrs Weight 182 lb 15.739 oz Weight 170 lb 13 oz Physical Exam Narrative: Patient is sitting in the bed no distress but feel chest pain when cough due to CPR CVS:S1-S2 regular rate and rhythm Lungs: clear to auscultate but has crepts on the right side [employer] DEVELOPER: nonfocal Urinary Catheter Management: Whitman: Cath Placed During This Visit: yes Reason for Continuing Indwelling Catheter: Accurate Measurement of Urinary Output in Critically Ill Patients Urinary Catheter Date of Insertion: 01/26/23 Data 01/30/23 02:44 01/30/23 02:44 Micro: Microbiology 01/29/23 11:28 MRSA Culture - Final Nose A&P Assessment and plan (1) Ventricular tachycardia: Patient has ischemic cardiomyopathy with decompensated acute on chronic heart failure, he has multiple episodes of VT with few ICD firing , lidocaine was started with ongoing amiodarone drip.Patient is allergic to Mexilitine, keep K and Magnesium in the normal range, once off levophed will add beta ashley, however patient is not able to swallow (2) Elevated troponin I level: Demand ischemia and secondary to ICD shock resuscitation (3) Intermittent atrial fibrillation: On amiodarone (4) Acute DVT (deep venous thrombosis): Not good candidate for anticoagulation , IVC filter (5) Ischemic cardiomyopathy: In decompensated state , IV diuretics introduced will keep diuresing for next 24 hours after that we will reduce it to once a day, continut to replenish electrolyte (6) KARL (acute kidney injury): improving after diureses Attestations Medical Necessity Statement*: Patient requires continuation of hospitalization for above define care Coding Level of Care Code Acute Code for Chg Fwd Diagnoses Ventricular tachycardia I47.20 Elevated troponin I level R77.8 Intermittent atrial fibrillation I48.0 Acute DVT (deep venous thrombosis) I82.409 Ischemic cardiomyopathy I25.5 KARL (acute kidney injury) N17.9
--- NOTE | 2023-01-30 16:49 | PM.PN ---
Subjective Subjective: Patient needed to be placed back on lidocaine infusion overnight as he went back into V-fib. He started on IV Lasix today. Continues to be on Levophed support. He failed his swallow evaluation, with noted choking episode on attempting to eat. States that his chest hurts with the coughing episodes. Medications: Reviewed: Yes Medication Review Details: Current Medications Acetaminophen (Acetaminophen 325 Mg Tablet) 650 mg PO Q6H PRN PRN Reason: MILD PAIN Atorvastatin Calcium (Atorvastatin 40 Mg Tablet) 80 mg PO BEDTIME RICARDO Last Admin: 01/26/23 21:39 Dose: 80 mg Heparin Sodium (Porcine) (Heparin 5,000 Unit/Ml Inj 1 Ml) 0 unit IV PRN PRN; Protocol PRN Reason: Heparin weight-base protocol Last Admin: 01/27/23 03:34 Dose: 3,100 unit Amiodarone HCl 900 mg/Dextrose/ IV Miscellaneous Supplies 518 mls @ 0 mls/hr IV .Q0M RICARDO; Protocol Last Admin: 01/27/23 15:46 Dose: 1 mg/min, 34.53 mls/hr Fentanyl 2,500 mcg/ Sodium (Chloride) 250 mls @ 0 mls/hr IV .Q0M RICARDO; Protocol Last Titration: 01/27/23 00:15 Dose: 125 mcg/hr, 12.5 mls/hr Heparin Sodium/Sodium Chloride (Heparin Drip) 25,000 unit in 500 mls @ 0 mls/hr IV .Q0M RICARDO; Protocol Last Titration: 01/27/23 13:08 Dose: 5.84 unit/kg/hr, 9 mls/hr Norepinephrine Bitartrate 4 mg (/ Dextrose) 254 mls @ 0 mls/hr IV .Q0M RICARDO; Protocol Last Admin: 01/27/23 05:03 Dose: 14 mcg/min, 53.34 mls/hr Sodium Chloride (Sodium Chloride 0.9%) 500 mls @ 0 mls/hr IV .Q0M RICARDO Propofol (Diprivan) 1,000 mg in 100 mls @ 0 mls/hr IV .Q0M RICARDO; Protocol Last Admin: 01/27/23 01:11 Dose: 20 mcg/kg/min, 9.25 mls/hr Vancomycin HCl 1,000 mg/ (Sodium Chloride) 250 mls @ 250 mls/hr IV Q24H RICARDO; Protocol Last Admin: 01/27/23 11:09 Dose: 250 mls/hr Piperacillin Sod/Tazobactam (Sod 3.375 gm/ Sodium Chloride) 50 mls @ 12.5 mls/hr IV Q8H [facility] Last Admin: 01/27/23 16:51 Dose: 12.5 mls/hr Norepinephrine Bitartrate 8 mg (/ Dextrose) 508 mls @ 0 mls/hr IV .Q0M [facility]; Protocol Levothyroxine Sodium (Levothyroxine 75 Mcg Tablet) 75 mcg PO QAM [facility] Last Admin: 01/27/23 05:09 Dose: 75 mcg Ondansetron HCl (Ondansetron 2 Mg/Ml Sdv 2 Ml) 4 mg IVP Q6H PRN PRN Reason: NAUSEA AND VOMITING Pantoprazole Sodium (Pantoprazole 40 Mg Sdv) 40 mg IVP DAILY [facility] Last Admin: 01/27/23 08:20 Dose: 40 mg Vitals/I&O/Wt Last Vital Signs Temp 98.7 F 01/30/23 07:39 Pulse 64 01/30/23 16:00 Resp 20 H 01/30/23 16:00 BP 103/43 01/30/23 16:00 Pulse Ox 96 01/30/23 16:00 O2 Del Method Nasal Cannula 01/29/23 18:00 O2 Flow Rate 40 01/30/23 15:20 FiO2 40 01/30/23 15:20 01/30/23 01/30/23 01/30/23 06:59 14:59 22:59 Intake Total 724.375 / 2465.032 836.763 / 836.763 127.842 / 964.605 Output Total 1000 / 2525 Balance -275.625 / -59.968 836.763 / 836.763 127.842 / 964.605 Weight last 48 hrs Weight 83 kg Weight 77.479 kg Physical Exam Narrative: General: coughing, HEENT: PERRLA, pupils bilaterally equal and reactive, pallors not present Chest: B/L crackles CVS: S1-S2 regular, no murmurs, no tachycardia, no gallops, no rubs Abdomen: Soft, nontender, no organomegaly, bowel sounds present Neuro: No focal deficits, no facial deformity, AO x3, power 5/5 in all limbs Urinary Catheter Management: Whitman: Cath Placed During This Visit: yes Reason for Continuing Indwelling Catheter: Accurate Measurement of Urinary Output in Critically Ill Patients Urinary Catheter Date of Insertion: 01/26/23 Data 01/30/23 02:44 01/30/23 02:44 Micro: Microbiology 01/29/23 11:28 MRSA Culture - Final Nose A&P Assessment and plan (1) V-tach: Patient presented with ventricular tachycardia. He has had previous similar presentations in the past. Electrolytes at this time are normal including magnesium and TSH Echo shows diminished ejection fraction of around 40% Appreciate cardiology consultation Currently on amiodarone drip , lidocaine drip titrated off At this point cannot continue patient's home metoprolol secondary to hypotension, being on levophed Cardiology to determine if pacemaker/defibrillator settings are adequate, rep currently at bedside making adjustments (2) Cardiac arrest: Status postcardiac arrest Still requiring norepinephrine @ 8mcg Electrolytes have been checked and normal Echocardiogram as above He is neurologically intact (3) Acute respiratory failure: Extubation occurred on 01/27. He is tolerating high flow without difficulty. has some cough, needs frequent suctioning Left base infiltrate noted on x-ray. Possible small effusions. Secondary to elevated white count, temperature elevations, secretions, concerned about developing pneumonia that may have been present on admission. MRSA PCR, sputum culture pending. Empirically on zosyn and vanc which we will continue (4) KARL (acute kidney injury): Significant acute kidney injury postcode Whitman has been placed. Renal function currently improving at 1.9; urine output 1900 cc Overall needs diuresis but not able to accomplish secondary to hypotension Nephrology consultation appropriate CBC, BMP in the morning (5) Leukocytosis: Elevation in white blood cell count likely secondary to demargination from stress from code This is improved Urinalysis was not concerning Infiltrate is present on x-ray. Start vancomycin and Zosyn and continue to monitor (6) Elevated troponin: Cardiology following Currently on a heparin drip (7) Ischemic cardiomyopathy: Echo with LV systolic function is moderately reduced with EF of 35-40% (8) Chronic systolic (congestive) heart failure: Patient with history of chronic systolic heart failure He has some evidence of lower extremity edema. Consideration of Lasix dose, if blood pressure increases and kidney function remains stable (9) Acute DVT (deep venous thrombosis): Patient with acute DVT Placed on a heparin drip on admission Pulmonary embolism is not excluded, but patient's renal function is such that CTA is not warranted now with patient improvement Continue anticoagulation with heparin, and hopefully in the future can convert to oral agents i as patient improves Has been suffering Hb drop and needing blood transfusion while on heparin infusion, may not be able to tolerate a/c. High clot burden. IVC filter placed today Plan Multiple other medical problems as outlined in past medical history Full code currently Heparin will suffice for DVT prophylaxis Plan for today. Continue Levophed support. Continue amiodarone and lidocaine infusion. Continue IV diuresis with Lasix. Kidney function currently improving. However overall patient is extremely weak and deconditioned. He has multiple comorbidities. Still needing heated high flow. He has failed his swallow evaluation. He complains of pain over his ribs and sternal area with minimal coughing. Over the next 24 to 48 hours, will need to assess overall goals of care, if continues to fail swallow eval, will likely need consideration for PEG placement. Currently has high FiO2 requirements on heated high flow. Patient has continued to have episodes of V. tach in spite of being on amiodarone and lidocaine infusion, change in AICD settings. Discussed with daughters that palliative care may be reasonable to consider at this point given his global deterioration. They are agreeable to a family meeting palliative care discussion tomorrow at 4pm Attestations Medical Necessity Statement*: ongoing amiodarone, lidocaine , levophed infusions, iv diuresis, monitor respiratory status Coding Level of Care Code Critical Care >/= 30 minutes Diagnoses V-tach I47.20 Cardiac arrest I46.9 Acute respiratory failure J96.00 KARL (acute kidney injury) N17.9 Leukocytosis D72.829 Elevated troponin R77.8 Ischemic cardiomyopathy I25.5 Chronic systolic (congestive) heart failure I50.22 Acute DVT (deep venous thrombosis) I82.409
[2023-01-30 16:57] LABS: Partial Thromboplastin Time 59.5 SECONDS (23.9-36.7)
[2023-01-30] MEDS: heparin drip 25,000 UNIT/500 ML PREMIX 18 UNIT IV (17:21)
--- NOTE | 2023-01-30 17:45 | XRR_ITS ---
PROCEDURE INFORMATION: Exam: XR Chest Exam date and time: 01/30/2023 5:55 PM Age: 87 years old Clinical indication: Device placement; Other: Ij adjustment; Additional info: Repositioned ij TECHNIQUE: Imaging protocol: Radiologic exam of the chest. Views: 1 view. COMPARISON: CR (CHEST, ) 01/30/2023 5:32 AM FINDINGS: Tubes, catheters and devices: The right IJ central line has been slightly retracted with tip in the mid right atrium. Intact Single lead left subclavian pacemaker. Lungs: Stable airspace opacity in the central right lung. Increased airspace opacity in the central left lung. Stable nodular densities in the peripheral right lung base and left upper lobe. Pleural spaces: Small left and trace right pleural effusions suspected. Heart/Mediastinum: Cardiomegaly. Bones/joints: Posterior fusion hardware in the thoracolumbar spine. XR/XR chest 1V portable [id number] IMPRESSION: 1. Bilateral pulmonary edema or pneumonia, slightly increased on the left.
--- NOTE | 2023-01-30 19:33 | PC.NURSE ---
Levophed Patient's blood pressure MAP 60. Levophed turned on at 2 mcg/min; MAR shows infused and unable to titrate in MAR.
--- NOTE | 2023-01-30 20:23 | PC.NURSE ---
Physician Communication Upon entering room, patient noted to have blood on his gown, his sheets, his face, and his hands coming from his nose. Upon inspection, bleed has stopped. Heparin drip still administering. Dr. Velasquez contacted; order received to stop heparin drip for one hour and maintain ptt lab order for 2300. Dr. Velasquez also notified of patient's central line positioning in the right atrium; no new orders received.
--- NOTE | 2023-01-30 21:25 | XRR_ITS ---
PROCEDURE INFORMATION: Exam: XR Chest Exam date and time: 01/30/2023 9:33 PM Age: 87 years old Clinical indication: Device placement; Picc; Additional info: Central line placement TECHNIQUE: Imaging protocol: Radiologic exam of the chest. Views: 1 view. COMPARISON: CR (CHEST, ) 01/30/2023 5:55 PM FINDINGS: Tubes, catheters and devices: The right IJ central line has been retracted with tip at the cavoatrial junction. Stable intact Single lead pacemaker. Lungs: Stable airspace opacities in the right mid lung, central left lung. Stable nodular densities in the peripheral right lung base and left upper lobe. Pleural spaces: Stable small left pleural effusion. No pneumothorax. Heart/Mediastinum: Mild cardiomegaly. Bones/joints: Thoracolumbar fusion hardware. Stable left rib fracture. XR/XR chest 1V portable [id number] IMPRESSION: 1. PICC line tip at the cavoatrial junction. 2. Otherwise stable chest.
--- NOTE | 2023-01-30 21:30 | PC.NURSE ---
Central Line Dr. Velasquez at bedside; central line retracted for correct placement. Chest xray ordered for confirmation of placement.
[2023-01-30 23:05] LABS: Partial Thromboplastin Time 48.6 SECONDS (23.9-36.7)
--- NOTE | 2023-01-30 23:25 | PC.NURSE ---
Heparin bolus Patient's ptt came back at 48.6. Heparin drip titrated per protocol. Dr. Velasquez contacted for verification of heparin bolus following patient's nose bleed earlier in the night. Order received from Dr. Velasquez to hold heparin bolus.
[2023-01-31] VITALS (95 sets, daily range): BP systolic 92–135; BP diastolic 41–96; PULSE 0–85; RESP 11–33; TEMP 36.8–37.1; O2SAT 93–99; BMI 24.8
[2023-01-31] MEDS: piperacillin-tazobactam 3.375 GM in sodium chloride 0.9% (plus) 50 ML IV ×3 (00:26→17:06)
[2023-01-31] MEDS: albumin 25 G/100 ML BAG 60 G IV ×3 (00:26→15:12)
[2023-01-31 01:15] LABS: Glucose Point of Care 78 mg/dL (70-110)
--- NOTE | 2023-01-31 02:00 | PC.NURSE ---
Blood sugar Patient's blood sugar 78. Dr. Velasquez notified; no new orders received.
[2023-01-31] MEDS: morphine 4 mg/mL SDV 1 mL 2 MG IVP ×6 (02:10→22:53)
[2023-01-31 02:24] LABS: Glucose Point of Care 83 mg/dL (70-110)
[2023-01-31 04:37] LABS: Glucose Point of Care 78 mg/dL (70-110)
--- NOTE | 2023-01-31 04:59 | PC.NURSE ---
Confusion Patient states he is seeing things that he knows is not there, like a little man crawling the reed. Dr. Petty notified; order received to pause lidocaine drip. See MAR for details.
[2023-01-31 05:15] LABS: Basophils % 0.3 %; Eosinophils # 0.1 10^3/uL (0.0-0.8); Eosinophils % 1.5 %; Hematocrit 23.8 % (42.0-52.0); Lymphocytes # 0.5 10^3/uL (0.8-4.8); Lymphocytes % 7.6 %; Mean Corpuscular HGB Conc 33.6 g/dL (30.0-36.0); Mean Corpuscular Hemoglobin 31.6 pg (28.0-34.0); Mean Corpuscular Volume 94.1 fl (80-94); Mean Platelet Volume 9.4 fL (7.4-10.4); Monocytes # 0.6 10^3/uL (0.2-0.9); Monocytes % 8.8 %; Neutrophils # 5.23 10^3/uL (1.8-7.7); Nucleated Red Blood Cells % 0 %; Platelet Count 98 10^3/cmm (130-400); Red Blood Count 2.53 10^6/uL (4.1-5.3); Red Cell Distribution Width 16.8 % (12.1-15.1); White Blood Count 6.5 10^3/uL (4.0-10.0)
[2023-01-31] MEDS: vancomycin 1,000 MG in sodium chloride 0.9% 250 ML 250 MG IV (05:19)
[2023-01-31 05:23] LABS: Partial Thromboplastin Time 60.5 SECONDS (23.9-36.7)
[2023-01-31 05:32] LABS: Alanine Aminotransferase 59 U/L (0-41); Albumin Level 3.5 g/dL (3.5-5.2); Alkaline Phosphatase 55 U/L (40-130); Aspartate Amino Transferase 73 U/L (0-40); Blood Urea Nitrogen 25 mg/dL (8-23); Calcium 8.2 mg/dL (8.5-10.5); Carbon Dioxide 23 mmol/L (22-29); Chloride 106 mmol/L (98-107); Globulin 1.5 g/dL (1.3-4.6); Glucose 77 mg/dL (65-115); Magnesium 2.2 mg/dL (1.7-2.3); Osmolality Calculated 293 mOsm/kg (285-295); Sodium 140 mmol/L (136-145); Total Bilirubin 1.6 mg/dL (0.15-1.2)
--- NOTE | 2023-01-31 05:35 | PC.NURSE ---
Morphine Patient complaining of increased chest pain. Dr. Petty notified; order received to increase PRN morphine dose to Q2HR rather than Q4HR. See MAR for details.
--- NOTE | 2023-01-31 06:37 | PC.NURSE ---
Potassium Patient's potassium 3.0. Dr. Velasquez notified; order received for 40 meq KCL IV once. See MAR.
[2023-01-31] MEDS: potassium chloride premix 100 ML 25 MEQ IV (07:01)
[2023-01-31 07:42] LABS: Glucose Point of Care 85 mg/dL (70-110)
[2023-01-31] MEDS: pantoprazole 40 mg SDV IVP (08:49)
[2023-01-31] MEDS: FUROsemide 10 mg/mL SDV 4mL 40 MG IVP ×2 (08:49→18:39)
--- NOTE | 2023-01-31 11:01 | PC.SOCIAL ---
IMM Updated Updated pt's family on IMM. No questions voiced. Provided pt a copy. Initialed, dated, & timed copy in chart.
--- NOTE | 2023-01-31 11:31 | PM.PN ---
Subjective Subjective: off lidocaine drip , remains on amio drip on 40 L Fio2 Medications: Reviewed: Yes Vitals/I&O/Wt Last Vital Signs Temp 98.8 F 01/31/23 07:30 Pulse 64 01/31/23 09:00 Resp 20 H 01/31/23 09:00 BP 105/53 01/31/23 08:00 Pulse Ox 95 01/31/23 09:00 O2 Del Method Heated High Flow 01/31/23 08:00 O2 Flow Rate 40 01/31/23 09:00 FiO2 40 01/31/23 09:00 01/30/23 01/31/23 01/31/23 22:59 06:59 14:59 Intake Total 513.542 / 1350.305 681.5 / 2031.805 Output Total 1650 / 1650 1750 / 3400 Balance -1136.458 / -299.695 -1068.5 / -1368.195 Weight last 48 hrs Weight 80.732 kg Weight 83 kg Physical Exam Narrative: Patient is awake, no distress, on high flow O2 60% FiO2 S1-S2 regular rate and rhythm per report Lungs clear per report Has pedal edema Urinary Catheter Management: Whitman: Cath Placed During This Visit: yes Reason for Continuing Indwelling Catheter: Accurate Measurement of Urinary Output in Critically Ill Patients Urinary Catheter Date of Insertion: 01/26/23 Data 01/31/23 05:05 01/31/23 05:05 Micro: Microbiology 01/26/23 10:26 Blood Culture - Final Blood NO GROWTH AFTER 5 DAYS 01/26/23 10:20 Blood Culture - Final Blood NO GROWTH AFTER 5 DAYS 01/29/23 11:28 MRSA Culture - Final Nose A&P Assessment and plan (1) KARL (acute kidney injury): Plan 1. Acute kidney injury: Secondary to cardiac arrest, patient's creatinine was 1.2 in August 2022. Now has a creatinine peak of 2.4 improved to 1.6, currently, urine output picking up. No indication for dialysis, continue to monitor and avoid nephrotoxins and IV contrast studies. 2. Metabolic acidosis: Mild, monitor 3. Hyponatremia: Mild, monitor, 4. Status postcardiac arrest with V. tach: Status post CPR and ROSC. -Patient had AICD firing -restarted back on amnio drip, lidocaine drip- off now , Levophed drip Patient evaluated using audiovisual cart. Time spent 45 minutes. Attestations Medical Necessity Statement*: per medicine Coding Level of Care Code Acute Code for Chg Fwd Diagnoses KARL (acute kidney injury) N17.9
--- NOTE | 2023-01-31 11:37 | P.PN_ITS ---
Subjective Subjective: No more VT overnight, had hallucination , lidocaine tuned off , Patient complaining of chest pain when cough due to chest trauma secondary to CPR Medications: Reviewed: Yes Medication Review Details: Current Medications Acetaminophen (Acetaminophen 325 Mg Tablet) 650 mg PO Q6H PRN PRN Reason: MILD PAIN Atorvastatin Calcium (Atorvastatin 40 Mg Tablet) 80 mg PO BEDTIME RICARDO Last Admin: 01/26/23 21:39 Dose: 80 mg Heparin Sodium (Porcine) (Heparin 5,000 Unit/Ml Inj 1 Ml) 0 unit IV PRN PRN; Protocol PRN Reason: Heparin weight-base protocol Last Admin: 01/27/23 03:34 Dose: 3,100 unit Amiodarone HCl 900 mg/Dextrose/ IV Miscellaneous Supplies 518 mls @ 0 mls/hr IV .Q0M RICARDO; Protocol Last Admin: 01/27/23 15:46 Dose: 1 mg/min, 34.53 mls/hr Fentanyl 2,500 mcg/ Sodium (Chloride) 250 mls @ 0 mls/hr IV .Q0M RICARDO; Protocol Last Titration: 01/27/23 00:15 Dose: 125 mcg/hr, 12.5 mls/hr Heparin Sodium/Sodium Chloride (Heparin Drip) 25,000 unit in 500 mls @ 0 mls/hr IV .Q0M RICARDO; Protocol Last Titration: 01/27/23 13:08 Dose: 5.84 unit/kg/hr, 9 mls/hr Norepinephrine Bitartrate 4 mg (/ Dextrose) 254 mls @ 0 mls/hr IV .Q0M RICARDO; Protocol Last Admin: 01/27/23 05:03 Dose: 14 mcg/min, 53.34 mls/hr Sodium Chloride (Sodium Chloride 0.9%) 500 mls @ 0 mls/hr IV .Q0M RICARDO Propofol (Diprivan) 1,000 mg in 100 mls @ 0 mls/hr IV .Q0M RICARDO; Protocol Last Admin: 01/27/23 01:11 Dose: 20 mcg/kg/min, 9.25 mls/hr Vancomycin HCl 1,000 mg/ (Sodium Chloride) 250 mls @ 250 mls/hr IV Q24H RICARDO; Protocol Last Admin: 01/27/23 11:09 Dose: 250 mls/hr Piperacillin Sod/Tazobactam (Sod 3.375 gm/ Sodium Chloride) 50 mls @ 12.5 mls/hr IV Q8H [facility] Last Admin: 01/27/23 16:51 Dose: 12.5 mls/hr Norepinephrine Bitartrate 8 mg (/ Dextrose) 508 mls @ 0 mls/hr IV .Q0M [facility]; Protocol Levothyroxine Sodium (Levothyroxine 75 Mcg Tablet) 75 mcg PO QAM [facility] Last Admin: 01/27/23 05:09 Dose: 75 mcg Ondansetron HCl (Ondansetron 2 Mg/Ml Sdv 2 Ml) 4 mg IVP Q6H PRN PRN Reason: NAUSEA AND VOMITING Pantoprazole Sodium (Pantoprazole 40 Mg Sdv) 40 mg IVP DAILY [facility] Last Admin: 01/27/23 08:20 Dose: 40 mg Vitals/I&O/Wt Last Vital Signs Temp 98.8 F 01/31/23 07:30 Pulse 64 01/31/23 09:00 Resp 20 H 01/31/23 09:00 BP 105/53 01/31/23 08:00 Pulse Ox 95 01/31/23 09:00 O2 Del Method Heated High Flow 01/31/23 08:00 O2 Flow Rate 40 01/31/23 09:00 FiO2 40 01/31/23 09:00 01/30/23 01/31/23 01/31/23 22:59 06:59 14:59 Intake Total 513.542 / 1350.305 681.5 / 2031.805 Output Total 1650 / 1650 1750 / 3400 Balance -1136.458 / -299.695 -1068.5 / -1368.195 Weight last 48 hrs Weight 177 lb 15.739 oz Weight 182 lb 15.739 oz Physical Exam Narrative: General: Awake but fatigue, on high flow Chest: Reduced breath sound with inspiratory crackle on right then left CVS: S1-S2 regular, no significant murmur Neuro: Nonfocal LE: no edema Urinary Catheter Management: Whtiman: Cath Placed During This Visit: yes Reason for Continuing Indwelling Catheter: Accurate Measurement of Urinary Output in Critically Ill Patients Urinary Catheter Date of Insertion: 01/26/23 Data 01/31/23 05:05 01/31/23 05:05 Micro: Microbiology 01/26/23 10:26 Blood Culture - Final Blood NO GROWTH AFTER 5 DAYS 01/26/23 10:20 Blood Culture - Final Blood NO GROWTH AFTER 5 DAYS 01/29/23 11:28 MRSA Culture - Final Nose A&P Assessment and plan (1) Ventricular tachycardia: Patient has ischemic cardiomyopathy with decompensated acute on chronic heart failure, he has multiple episodes of VT with few ICD firing , lidocaine was started with ongoing amiodarone drip.Patient is allergic to Mexilitine, keep K and Magnesium in the normal range, once off levophed will add beta ashley, however patient is not able to swallow On today's visit, appeared to be fatigue on high flow nasal, no more sustained VT or ICD shock, continue amiodarone, possible PEG tube if happens will switch to PO, had detailed discussion with the patient and 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 Continue same medications including pressor Levophed (2) Elevated troponin I level: Demand ischemia (3) Intermittent atrial fibrillation: Patient is in sinus rhythm for now on amiodarone we will continue with (4) Acute DVT (deep venous thrombosis): Continue IV heparin, patient is post IVC filter (5) Ischemic cardiomyopathy: Continue IV Lasix still decompensated systolic heart failure. X-ray chest is consistent with possible consolidation in the right lobe, treatment as per medicine for possible pneumonia consider aspiration (6) KARL (acute kidney injury): Creatinine has improved somewhat and remained steady now continue IV diuresis Attestations Medical Necessity Statement*: Patient require continuation hospitalization for above defined care Coding Level of Care Code Acute Code for Chg Fwd Diagnoses Ventricular tachycardia I47.20 Elevated troponin I level R77.8 Intermittent atrial fibrillation I48.0 Acute DVT (deep venous thrombosis) I82.409 Ischemic cardiomyopathy I25.5 KARL (acute kidney injury) N17.9
--- NOTE | 2023-01-31 13:35 | P.PN_ITS ---
Subjective Subjective: Lidocaine infusion was discontinued last evening due to developing hallucinations. Central line was repositioned twice yesterday as radiology now reported that Was in the right atrium. Post repositioning tip is now noted to be in the cavoatrial junction. He is currently in sinus rhythm. Heart rate 50 to 60 bpm. Currently only on amiodarone. Levophed has been titrated off. Running heparin drip. Hemoglobin is stable. Remains on heated high flow at 40% FiO2 at 40 L/min. Still has multiple bouts of coughing with pain over his anterior chest wall with each coughing Wishes to eat, however failed swallow evaluation with noted choking episode with pur?ed diet. He asked me today if he can eat regardless of the choking and as I discussed with him the risk of aspiration pneumonia. He states he will likely be agreeable for a PEG tube however wishes to discuss with his daughter some more. Medications: Reviewed: Yes Vitals/I&O/Wt Last Vital Signs Temp 98.8 F 01/31/23 07:30 Pulse 64 01/31/23 09:00 Resp 22 H 01/31/23 13:16 BP 105/53 01/31/23 08:00 Pulse Ox 96 01/31/23 13:16 O2 Del Method Heated High Flow 01/31/23 08:00 O2 Flow Rate 40 01/31/23 09:00 FiO2 40 01/31/23 09:00 01/30/23 01/31/23 01/31/23 22:59 06:59 14:59 Intake Total 513.542 / 1350.305 681.5 / 2031.805 768 / 768 Output Total 1650 / 1650 1750 / 3400 Balance -1136.458 / -299.695 -1068.5 / -1368.195 768 / 768 Weight last 48 hrs Weight 80.732 kg Weight 83 kg Physical Exam Narrative: General: coughing, acutely ill elderly male, severely deconditioned, heated high flow nasal cannula in place currently HEENT: PERRLA, pupils bilaterally equal and reactive, pallors not present Chest: B/L crackles to auscultation, right side with interval development of worsening crackles. CVS: S1-S2 regular, no murmurs, no tachycardia, no gallops, no rubs Abdomen: Soft, nontender, no organomegaly, bowel sounds present Neuro: No focal deficits, grossly, alert awake oriented Urinary Catheter Management: Whitman: Cath Placed During This Visit: yes Reason for Continuing Indwelling Catheter: Accurate Measurement of Urinary Output in Critically Ill Patients Urinary Catheter Date of Insertion: 01/26/23 Data 01/31/23 05:05 01/31/23 05:05 Micro: Microbiology 01/26/23 10:26 Blood Culture - Final Blood NO GROWTH AFTER 5 DAYS 01/26/23 10:20 Blood Culture - Final Blood NO GROWTH AFTER 5 DAYS 01/29/23 11:28 MRSA Culture - Final Nose A&P Assessment and plan (1) V-tach: Patient presented with ventricular tachycardia. He has had previous similar presentations in the past. He was cardioverted in the emergency room following which she developed V-fib arrest. Received CPR, ROSC was obtained in about 2 minutes Electrolytes were normal at admission time are normal including magnesium and TSH Echo shows diminished ejection fraction of around 40% Appreciate cardiology consultation Currently on amiodarone drip , lidocaine drip turned off on 01/30/2023 due to developing hallucinations. At this point cannot continue patient's home metoprolol secondary to hypotension AICD settings have been adjusted during the course of this admission (2) Cardiac arrest: Status postcardiac arrest upon arrival with cardiogenic shock thereafter. He was on Levophed until January 30, 2023, now titrated off. Electrolytes normal at admission Currently potassium is 3.0 which is being supplemented Echocardiogram as above He is neurologically intact (3) Acute respiratory failure: Extubation occurred on 01/27. His cough has worsened since extubation. He has significant choking on attempting swallow evaluation with evidence of aspiration. Chest x-ray per my read has in the interim developed right-sided infiltrates additionally which may be reflective of aspiration pneumonia versus hospital- acquired pneumonia Currently on antibiotic coverage with piperacillin/tazobactam and vancomycin. Sputum culture shows mixed upper respiratory jf. MRSA PCR negative from nares, discontinue vancomycin He is currently on a heated high flow 40% FiO2 at 40 L/min. Gets easily fatigued and hypoxic when attempting conversation lasting more than a few sentences. (4) KARL (acute kidney injury): Significant acute kidney injury postcode Whitman has been placed. Renal function currently improving at 1.6; urine output 3.4 L last 24 hours Currently Lasix down to 40 mg IV every 24 hours Nephrology consultation appreciated, no indication for dialysis currently (5) Leukocytosis: Now resolved (6) Elevated troponin: Cardiology following Currently on a heparin drip (7) Ischemic cardiomyopathy: Echo with LV systolic function is moderately reduced with EF of 35-40% (8) Chronic systolic (congestive) heart failure: Patient with history of chronic systolic heart failure (9) Acute DVT (deep venous thrombosis): Patient with acute DVT Placed on a heparin drip on admission Continue anticoagulation with heparin, and hopefully in the future can convert to oral agents i as patient improves if hemoglobin remained stable Status post IVC filter on January 29, 2023 Plan Multiple other medical problems as outlined in past medical history Full code currently Heparin will suffice for DVT prophylaxis Family meeting today to include palliative team to discuss goals of care. Overall patient has multiple comorbidities, is quite deconditioned from his recurrent hospital admissions. Currently he is unable to tolerate any p.o. intake without choking. If goals of care are to proceed with all available interventions including procedural ones, I foresee at least a placement of a PEG tube in the near future to ensure patient nutrition and transition to oral medications so that he may be titrated off the IV amiodarone with addition of p.o. beta-blockers or calcium channel blockers. He has previously refused procedures such as hemodialysis but will think about the PEG tube. He wishes us to discuss some more with his daughters before making any decisions. Discussed with him extensively today that even though we are treating his individual components of pneumonia with antibiotics and oxygen, making changes to AICD and running drips, it has not translated into a global overall improvement for him. He is significantly deconditioned, has pain from recurrent bouts of coughing, clutching onto pillows and blankets for most of the day due to chest pain. Attestations Medical Necessity Statement*: Continues to be on amiodarone infusion, unable to tolerate any p.o. intake to transition to p.o. meds, significantly deconditioned, needing heated high flow for respiratory support, family meeting for [facility] discussion Coding Level of Care Code Acute Code for Chg Fwd High MDM includes number and complexity of problems actively addressed during encounter, amount and/or complexity of data reviewed/ordered and described risk of complication, morbidity or mortality of management as documented Diagnoses V-tach I47.20 Cardiac arrest I46.9 Acute respiratory failure J96.00 KARL (acute kidney injury) N17.9 Leukocytosis D72.829 Elevated troponin R77.8 Ischemic cardiomyopathy I25.5 Chronic systolic (congestive) heart failure I50.22 Acute DVT (deep venous thrombosis) I82.409
[2023-01-31] MEDS: lanolin oint 7 gm 1 APPLIC TOPICAL ×2 (15:12→23:11)
[2023-01-31 16:25] LABS: Partial Thromboplastin Time 65.1 SECONDS (23.9-36.7)
--- NOTE | 2023-01-31 16:40 | PC.NURSE ---
Heparin gtt: PTT within range; 65.1 No changes to Heparin gtt indicated.
--- NOTE | 2023-01-31 17:23 | P.CONIM_ITS ---
Providers/Reason For Consult Consulting Physician/Specialty*: Palliative Medicine Reason for Consult*: assistance with decision making between patient and 2 daughters Requesting Physician: Dr. Diaz Attending Physician: Anna Diaz MD Primary Care Provider: Gene Peralta History of Present Illness History of Present Illness Jesus Saucedo is a 87 year old male with history of ischemic cardiomyopathy with EF of 30 to 35%, pulmonary hypertension, chronic kidney disease, recurrent ventricular tachycardia/fibrillation who presented with recurrent and persistent V. tach V-fib. His defibrillator did not shock him except for 1 time. At the hospital he went into ventricular fibrillation arrest. He required shock CPR and intubation patient was started on an amiodarone drip and eventually a lidocaine drip due to recurrent ventricular arrhythmias. He was extubated the following day. Unfortunately he suffered acute on chronic kidney disease, however this did improve over time. In the last few days the patient has concerns continue to have ventricular arrhythmias patient was on lidocaine this had to be stopped due to confusion. He currently is in acutely decompensated CHF and diuresis has just been started. Please note this is at a much lower dose than his normal home dose. He most likely aspirated and is now requiring 40% FiO2 on heated high flow. Review of Systems Const: Denies: fever(s) or chills Eyes: Denies: change in vision ENMT: Denies: throat pain or nasal congestion Card: Reports: chest pain; Denies: palpitations Resp: Reports: non-productive cough; Denies: dyspnea GI: Denies: abdominal pain, nausea, vomiting or change in stool character : Denies: difficulty urinating or dysuria Musc: Denies: back pain or extremity pain Skin/Breast: Denies: rash or lesions Neuro: Denies: headache(s) or dizziness Psych: Denies: anxiety or depression Lyle/Lymph: Denies: easy bruising or easy bleeding Medications/Allergies Home Medications Medication Instructions Recorded Confirmed Last Taken Type rosuvastatin 40 mg tablet 40 mg PO BEDTIME 04/12/21 01/26/23 10/27/22 21:00 History multivit with min-folic 1 tab PO DAILY 04/25/21 01/26/23 10/28/22 08:00 History acid-lutein 400 mcg-250 mcg chewable tablet (Centrum Silver) levothyroxine 75 mcg tablet 75 mcg PO QAM 03/02/22 01/26/23 01/26/23 History albuterol sulfate 90 mcg/actuation 2 puff inhalation Q6H PRN 03/04/22 01/26/23 10/25/22 History aerosol inhaler Shortness Of Breath lidocaine 4 % topical patch 1 patch topical DAILY PRN Pain 04/13/22 01/26/23 Unknown History (Salonpas (lidocaine)) clopidogrel 75 mg tablet 75 mg PO QAM #90 tabs 05/11/22 01/26/23 10/28/22 08:00 Rx ferrous sulfate 325 mg (65 mg 325 mg PO DAILY #90 tabs 07/11/22 01/26/23 10/28/22 Rx iron) tablet (Feosol) 0800 melatonin 5 mg disintegrating 5 mg PO BEDTIME 10/28/22 01/26/23 10/27/22 21:00 History tablet potassium chloride 20 mEq 60 meq PO BID 30 days #180 tabs 10/31/22 01/26/23 Unknown Rx tablet,extended release(part/cryst) (Klor-Con M) metoprolol tartrate 25 mg tablet 12.5 mg PO BID #60 tabs 11/17/22 01/26/23 Unknown Rx amiodarone 200 mg tablet 200 mg PO BID #180 tabs 01/11/23 01/26/23 Unknown Rx acetaminophen 650 mg 1,300 mg PO Q12H PRN Pain 01/26/23 01/26/23 Unknown History tablet,extended release amiodarone 100 mg tablet (Pacerone) 100 mg PO DAILY 01/26/23 01/26/23 01/25/23 History bumetanide 2 mg tablet 2 mg PO BID 01/26/23 01/26/23 Unknown History docusate sodium 100 mg capsule 100 mg PO BID 01/26/23 01/26/23 Unknown History (Stool Softener) nitroglycerin 0.4 mg sublingual 0.4 mg sublingual Q5M PRN Chest 01/26/23 01/26/23 Unknown History tablet (Nitrostat) Pain ondansetron 4 mg disintegrating 4 mg PO Q8H PRN Nausea And Vomiting 01/26/23 01/26/23 Unknown History tablet polyethylene glycol 3350 17 17 g PO DAILY PRN constipation 01/26/23 01/26/23 Unknown History gram/dose oral powder (Miralax) prochlorperazine maleate 5 mg 5 mg PO Q6H PRN Nausea And Vomiting 01/26/23 01/26/23 Unknown History tablet Allergies Allergy/AdvReac Type Severity Reaction Status Date / Time JACKIE Inhibitors Allergy Unknown Unknown Verified 12/24/22 10:20 Latex, Natural Rubber Allergy Unknown ALGY-Rash Verified 12/24/22 10:20 aspirin Allergy ALGY-Hives Verified 12/24/22 10:20 Current Medications Generic Name Dose Route Start Last Admin Trade Name Freq PRN Reason Stop Dose Admin Atorvastatin Calcium 80 mg 01/26/23 21:00 01/30/23 20:04 Atorvastatin 40 Mg Tablet PO Not Given BEDTIME RICARDO Furosemide 40 mg 01/29/23 22:49 01/31/23 08:49 Furosemide 10 Mg/Ml Sdv 4ml IVP 40 mg BID RICARDO Administration Guaifenesin/Dextromethorphan 5 ml 01/29/23 14:35 01/29/23 15:04 Guaifenesin-Dextromethorphan Udc 10 Ml PO 5 ml Q4H PRN Administration COUGH Heparin Sodium (Porcine) 0 unit 01/26/23 07:50 01/28/23 02:55 Heparin 5,000 Unit/Ml Inj 1 Ml IV 1,550 unit PRN PRN Administration Heparin weight-base protocol Protocol Heparin Sodium/Sodium Chloride 25,000 unit in 500 mls @ 0 mls/hr 01/26/23 08:00 01/30/23 23:15 Heparin Drip IV 12.97 unit/kg/hr .Q0M RICARDO 20 mls/hr Titration Protocol Per Protocol Norepinephrine Bitartrate 4 mg 254 mls @ 0 mls/hr 01/26/23 08:00 01/27/23 11:00 / Dextrose IV Infused .Q0M RICARDO Titration Protocol Per Protocol Piperacillin Sod/Tazobactam 50 mls @ 12.5 mls/hr 01/27/23 09:15 01/31/23 17:06 Sod 3.375 gm/ Sodium Chloride IV 12.5 mls/hr Q8H RICARDO Administration Norepinephrine Bitartrate 8 mg 508 mls @ 0 mls/hr 01/27/23 10:30 01/30/23 15:20 / Dextrose IV Infused .Q0M RICARDO Titration Protocol Per Protocol Lidocaine HCl/Dextrose 2,000 mg in 500 mls @ 15 mls/hr 01/27/23 18:45 01/31/23 05:18 Lidocaine Drip IV Not Given .Q24H RICARDO 1 MG/MIN Albumin Human 25 g in 100 mls @ 60 mls/hr 01/28/23 07:45 01/31/23 17:11 Albumin IV Infused Q8H RICARDO Infusion Amiodarone HCl 900 mg/ 518 mls @ 17.267 mls/hr 01/29/23 16:45 01/30/23 23:55 Dextrose/ IV Miscellaneous IV 0.5 mg/min Supplies CONT RICARDO 17.27 mls/hr Administration 0.5 MG/MIN Lanolin 1 applic 01/31/23 15:05 01/31/23 15:12 Lanolin Oint 7 Gm TOPICAL 1 applic PRN PRN Administration DRYNESS Levothyroxine Sodium 75 mcg 01/27/23 06:00 01/31/23 05:14 Levothyroxine 75 Mcg Tablet PO Not Given QAM RICARDO Morphine Sulfate 2 mg 01/31/23 05:35 01/31/23 16:55 Morphine 4 Mg/Ml Sdv 1 Ml IVP 2 mg Q2H PRN Administration SEVERE PAIN Pantoprazole Sodium 40 mg 01/27/23 09:00 01/31/23 08:49 Pantoprazole 40 Mg Sdv IVP 40 mg DAILY RICARDO Administration PFSH Acute PFSH: Medical History (Updated 01/31/23 @ 18:45 by Estuardo Navarrete DO) Acute diastolic (congestive) heart failure Acute NV Acute non-ST elevation myocardial infarction (NSTEMI) Acute on chronic systolic heart failure Anemia Anemia Atherosclerosis of coronary artery of ak chin heart without angina pectoris Atrial fibrillation CAD (coronary artery disease) Cardiomyopathy History of ischemic cardiomyopathy, do not need revascularization, continue optimal medical regimen Chronic kidney disease Coronary artery disease Coronary artery disease Defibrillator discharge Hyperlipidemia Hypertension Well-controlled Hypokalemia Sustained VT (ventricular tachycardia) Continue current regimen including beta-ashley, amiodarone. Appear to be stable not in VT anymore. Can be discharged home. Syncope Tubular adenoma of colon V-tach Ventricular tachycardia Ventricular tachycardia Wide-complex tachycardia Surgical History History of back surgery History of cardiac defibrillator placement Status post implantation of automatic cardioverter/defibrillator (AICD) Stented coronary artery Family History Mother No problems noted. Father No problems noted. Other CAD (coronary artery disease) Social History Smoking and tobacco status: never smoked Alcohol intake: never Substance/Drug Use: never Adopted: No Caregiver/support person: Yes Housing: [facility] Marital status: / Current occupational status: retired Vitals/I&O/Wt Last Vital Signs Temp 98.4 F 01/31/23 14:30 Pulse 58 L 01/31/23 15:30 Resp 19 H 01/31/23 16:55 BP 126/66 01/31/23 15:30 Pulse Ox 97 01/31/23 16:55 O2 Del Method Heated High Flow 01/31/23 15:30 O2 Flow Rate 40 01/31/23 15:30 FiO2 40 01/31/23 15:30 01/31/23 01/31/23 01/31/23 06:59 14:59 22:59 Intake Total 681.5 / 2031.805 768 / 768 100 / 868 Output Total 1750 / 3400 700 / 700 Balance -1068.5 / -1368.195 68 / 68 100 / 168 Weight last 48 hrs Weight 80.732 kg Weight 83 kg Physical Exam Narrative: 87-year-old who looks acutely ill, very fatigued. Patient is having mild to moderate pain with his nonproductive cough. Patient is alert oriented to person place and has a general sense of situation. Neurologic: Nonfocal HEENT: Head is normocephalic atraumatic patient is wearing a heated high flow mask with edema and erythema around the tubing. Nasal and pharyngeal mucosa moist and pink without lesions or exudates neck is supple no JVD carotid bruits or lymphadenopathy Heart: Regular normal S1-S2 without loud murmur Lungs: Diminished throughout Rales at the bilateral bases Abdomen soft nontender nondistended positive bowel sounds no hepatosplenomegaly Extremities mild pedal edema Urinary Catheter Management: Whitman: Cath Placed During This Visit: yes Reason for Continuing Indwelling Catheter: Accurate Measurement of Urinary Output in Critically Ill Patients Urinary Catheter Date of Insertion: 01/26/23 Data 01/31/23 05:05 01/31/23 05:05 Micro: Microbiology 01/26/23 10:26 Blood Culture - Final Blood NO GROWTH AFTER 5 DAYS 01/26/23 10:20 Blood Culture - Final Blood NO GROWTH AFTER 5 DAYS 01/29/23 11:28 MRSA Culture - Final Nose A&P Assessment and plan (1) Acute on chronic systolic heart failure: (2) Ventricular tachycardia: (3) Pulseless ventricular tachycardia: (4) Acute DVT (deep venous thrombosis): (5) Acute on chronic renal failure: (6) Acute respiratory failure: (7) Pulmonary hypertension: (8) Aspiration pneumonia: Plan The above 8 diagnosis is his most important current acute and chronic conditions causing an inability to improve. I met with the patient and his 2 daughters Funmi aldridge with whom he lives and Payal who lives in [place]. I asked patient to demonstrate understanding of his acute and chronic illnesses and he tells me that he is having mini heart attacks , which the daughters tell me is the way he understands his ventricular arrhythmias. He tells me he does not have anything wrong with his lungs and that he was told that his kidneys are okay. I had a lengthy discussion with patient and daughters regarding the severity of his underlying chronic illnesses and now the acute on chronic issues and the vicious cycle that he finds himself in. The family tells me the doctors are planning on transfer to [facility]. Patient tells me his goal is to go home, eat and walk like he did before. There is concern that the patient does not understand his condition; however, my sense is the patient is unable to ACCEPT the outcome of choosing a natural course. I reviewed his living will with patient and daughters that shows he does not wa nt dialysis and he does not want to be receiving treatments that are only meant to keep him alive. I pointed out that currently the IV medications are keeping him alive, as well as, the oxygen that he is receiving. We discussed what resuscitation efforts looked again after already receiving them and having broken ribs. I explained that he has already been receiving the medications we use in a resuscitation effort and thus further resuscitation efforts would be futile. I explained that ethically and morally we cannot as healthcare professionals because pain and suffering with our procedures. Thus he will be changed to DNR/I or allow natural . Besides discussing that particular procedure we discussed allowing nature to take its course going home likely on hospice versus continued care in the ICU and transfer to a long-term acute care hospital. Unfortunately, with the patient's multiple system failure it is unlikely that he will return to the prior level of living. When asked what would be acceptable to him he said only eating and walking. When asked what he would want to do if he could not do either he did not now. again, I believe he is having trouble accepting the inevitable and believe he would benefit from his road advisor. To me he is very clear that he wants to go home. However, I offered a in- between decision such that he start to receive feedings and change to oral amiodarone via feeding tube. This was agreeable to him and his daughters. We will observe over a time limited trial of approximately 3 days if he would improve or atleast stablize with feeding/taking 'oral' meds and coming off drips. Symptoms: Pain with cough due to rib fractures: start roxanol 10 mg sl q6h, consider increasing MSO4 to 4 mg IV. Consider fentanyl patch or other alternative when using feeding tube. SOB: denies N/V: denblanca, meeta prn Bleeding: pt was nose bleed after placing feeding tube. Stop heparin for 2 hrs and phsycially stop the nose bleed. Consult Attestations Medical Necessity Statement: Pt critially ill receiving continous IV medication to prevent life threatening arrhymias. He remains critically ill requiring many more midnights to improve. Coding Level of Care Code Acute Code for Chg Fwd Diagnoses Acute on chronic systolic heart failure I50.23 Ventricular tachycardia I47.20 Pulseless ventricular tachycardia I47.29 Acute DVT (deep venous thrombosis) I82.409 Acute on chronic renal failure N17.9; N18.9 Acute respiratory failure J96.00 Pulmonary hypertension I27.20 Aspiration pneumonia J69.0
--- NOTE | 2023-01-31 18:36 | XRR_ITS ---
PROCEDURE INFORMATION: Exam: XR Chest Exam date and time: 01/31/2023 6:39 PM Age: 87 years old Clinical indication: Device placement; Ng tube; Additional info: Dobhoff placement TECHNIQUE: Imaging protocol: Radiologic exam of the chest. Views: 1 view. COMPARISON: CR (CHEST, ) 01/30/2023 9:33 PM FINDINGS: Tubes, catheters and devices: Stable left pacemaker. Lungs: Stable bilateral pulmonary opacities most consistent with pneumonia versus atypical pulmonary edema. Stable moderate left basilar atelectasis and/or infiltrate and/or effusion. Pleural spaces: Unremarkable. No pleural effusion. No pneumothorax. Heart/Mediastinum: Stable cardiomegaly. Bones/joints: Unremarkable. Other findings: Stable postoperative changes over the thoracic spine with metallic fixation and metallic artifact. XR/XR chest 1V portable [id number] IMPRESSION: 1. Stable cardiomegaly. 2. Stable bilateral pulmonary opacities most consistent with pneumonia versus atypical pulmonary edema. 3. Stable moderate left basilar atelectasis and/or infiltrate and/or effusion.
[2023-01-31] MEDS: morphine 10 mg/0.5 mL oral liq UD PO ×2 (18:39→22:33)
--- NOTE | 2023-01-31 19:00 | PC.NURSE ---
Attempted insertion of NG. Difficult insertion, met resistance immediately causing pain. Pt said to stop. Stopped and immediately removed the 3 inches of NG out of his right nostril. Dr Navarrete, as on unit at this time, informed physician. Orders to try Dobhoff. Pt was agreeable to trying after seeing it was smaller. Again met resistance, although further in, on the right. Was able to get Dobhoff inserted into left nostril, pt tolerated poorly. He requested it to be pulled out. After informing him it was just inches from being in he agreed to continuing. Auscultated placement. Xray obtained to confirm.
--- NOTE | 2023-01-31 20:04 | PC.NURSE ---
Shift summary: Pt remains resting in bed throughout shift. He remains on HHF at 40 liters and 40%. He has been moaning and groaning with his coughing, it hurts his chest. He has difficultly having a productive cough due to the pain. Family has been attentive at bedside during visiting hours. Family meeting today on plan of care and care goals with pt. and family. Pt's heart rhythm A-fib with occasional pacing until the family meeting. since then the frequent V-tach runs have returned with PM correcting. Oral Morphine started this evening, pt stopped hold his chest and complaining of chest pain after it was admin. Heparin gtt Now on hold due to bleeding after Dobhoff insertion. Pressure was held on right nostril until bleeding stopped. No Bm noted today. 1350 of dark yellow urine noted this shift.
[2023-01-31 20:26] LABS: Glucose Point of Care 98 mg/dL (70-110)
[2023-01-31] MEDS: atorvastatin 40 mg Tablet 80 MG PO (21:18)
[2023-01-31] MEDS: amiodarone 200 mg Tablet 400 MG NG-TUBE (21:18)
[2023-01-31] MEDS: heparin drip 25,000 UNIT/500 ML PREMIX 20 UNIT IV (23:35)
[2023-01-31] MEDS: ondansetron 2 mg/ML SDV 2 mL 4 MG IVP (23:35)
[2023-02-01] VITALS (65 sets, daily range): BP systolic 79–122; BP diastolic 40–71; PULSE 0–97; RESP 12–29; TEMP 36.6–37.1; O2SAT 85–98; BMI 24.1
[2023-02-01] MEDS: albumin 25 G/100 ML BAG 60 G IV ×2 (00:33→07:32)
[2023-02-01] MEDS: piperacillin-tazobactam 3.375 GM in sodium chloride 0.9% (plus) 50 ML IV ×2 (00:34→09:17)
[2023-02-01] MEDS: morphine 4 mg/mL SDV 1 mL 2 MG IVP ×4 (02:45→09:44)
[2023-02-01 04:14] LABS: Basophils % 0.6 %; Eosinophils # 0.2 10^3/uL (0.0-0.8); Eosinophils % 4.3 %; Hematocrit 22.4 % (42.0-52.0); Hemoglobin 7.4 g/dL (11.7-16.6); Lymphocytes # 0.6 10^3/uL (0.8-4.8); Lymphocytes % 10.6 %; Mean Corpuscular Hemoglobin 30.6 pg (28.0-34.0); Mean Corpuscular Volume 92.6 fl (80-94); Mean Platelet Volume 9.2 fL (7.4-10.4); Monocytes # 0.6 10^3/uL (0.2-0.9); Monocytes % 11.9 %; Neutrophils # 3.87 10^3/uL (1.8-7.7); Neutrophils % 71.9 %; Nucleated Red Blood Cells % 0 %; Platelet Count 90 10^3/cmm (130-400); Red Blood Count 2.42 10^6/uL (4.1-5.3); Red Cell Distribution Width 16.5 % (12.1-15.1); White Blood Count 5.4 10^3/uL (4.0-10.0)
[2023-02-01 05:13] LABS: Alanine Aminotransferase 62 U/L (0-41); Albumin Level 3.6 g/dL (3.5-5.2); Alkaline Phosphatase 65 U/L (40-130); Anion Gap 12.6 (5-19); Aspartate Amino Transferase 99 U/L (0-40); Blood Urea Nitrogen 25 mg/dL (8-23); Calcium 8.3 mg/dL (8.5-10.5); Carbon Dioxide 25 mmol/L (22-29); Chloride 109 mmol/L (98-107); Globulin 1.3 g/dL (1.3-4.6); Glucose 85 mg/dL (65-115); Osmolality Calculated 302 mOsm/kg (285-295); Sodium 144 mmol/L (136-145); Total Bilirubin 1.9 mg/dL (0.15-1.2); Total Protein 4.9 g/dL (6.6-8.7)
[2023-02-01 05:16] LABS: Potassium 2.6 mmol/L (3.5-5.1)
[2023-02-01 05:25] LABS: Partial Thromboplastin Time 75.9 SECONDS (23.9-36.7)
--- NOTE | 2023-02-01 05:30 | PC.NURSE ---
Potassium Patient's potassium level 2.6. Dr. Velasquez contacted; order received for 40 meq PO kcl liquid once and 40 meq IV KCL once. See MAR for details.
[2023-02-01] MEDS: levothyroxine 75 mcg Tablet PO (05:32)
[2023-02-01] MEDS: potassium chloride oral liq 20 mEq/15 mL UDC 40 MEQ PO (05:32)
[2023-02-01] MEDS: morphine 10 mg/0.5 mL oral liq UD PO ×2 (05:33→11:40)
[2023-02-01] MEDS: potassium chloride premix 100 ML 25 MEQ IV ×2 (05:33→09:54)
[2023-02-01] MEDS: guaiFENesin-dextromethorphan UDC 10 mL 5 ML PO (06:13)
[2023-02-01] MEDS: pantoprazole 40 mg SDV IVP (09:16)
[2023-02-01] MEDS: amiodarone 200 mg Tablet 400 MG NG-TUBE ×2 (09:16→20:39)
--- NOTE | 2023-02-01 09:17 | PM.PN ---
Subjective Subjective: c/o SOB Medications: Reviewed: Yes Vitals/I&O/Wt Last Vital Signs Temp 97.9 F 02/01/23 04:00 Pulse 60 02/01/23 08:10 Resp 18 02/01/23 08:10 BP 115/55 02/01/23 07:00 Pulse Ox 93 02/01/23 08:10 O2 Del Method Heated High Flow 02/01/23 04:00 O2 Flow Rate 40 02/01/23 08:10 FiO2 40 02/01/23 08:10 01/31/23 02/01/23 02/01/23 22:59 06:59 14:59 Intake Total 663.9 / 1431.9 883.042 / 2314.942 Output Total 650 / 1350 1175 / 2525 Balance 13.9 / 81.9 -291.958 / -210.058 Weight last 48 hrs Weight 78.464 kg Weight 80.732 kg Physical Exam Narrative: Patient is awake, no distress, on high flow O2 60% FiO2 S1-S2 regular rate and rhythm per report Lungs clear per report Has pedal edema Urinary Catheter Management: Whitman: Cath Placed During This Visit: yes Reason for Continuing Indwelling Catheter: Accurate Measurement of Urinary Output in Critically Ill Patients Urinary Catheter Date of Insertion: 01/26/23 Data 02/01/23 04:04 02/01/23 04:04 Micro: Microbiology 01/26/23 10:26 Blood Culture - Final Blood NO GROWTH AFTER 5 DAYS 01/26/23 10:20 Blood Culture - Final Blood NO GROWTH AFTER 5 DAYS A&P Assessment and plan (1) KARL (acute kidney injury): Plan 1. Acute kidney injury: Secondary to cardiac arrest, patient's creatinine was 1.2 in August 2022. Now has a creatinine peak of 2.4 improved to 1.6, currently, urine output picking up. No indication for dialysis, continue to monitor and avoid nephrotoxins and IV contrast studies. 2. Metabolic acidosis: Mild, monitor 3. Hypokalemia : being repleted 4. Status postcardiac arrest with V. tach: Status post CPR and ROSC. -Patient had AICD firing -restarted back on amnio drip, lidocaine drip- off now , Levophed drip 5.Dysphagia Patient evaluated using audiovisual cart. Time spent 30 minutes. Attestations Medical Necessity Statement*: PER MEDICINE Coding Level of Care Code Acute Code for Chg Fwd Diagnoses KARL (acute kidney injury) N17.9
--- NOTE | 2023-02-01 11:16 | PM.PN ---
Subjective Subjective: Patient still has chest pain with coughing. Over the weekend he had more VT episodes and was put on lidocaine. He again developed hallucinations and it was stopped.Rhythm is stable today Vitals/I&O/Wt Last Vital Signs Temp 97.9 F 02/01/23 04:00 Pulse 60 02/01/23 08:10 Resp 21 H 02/01/23 09:44 BP 115/55 02/01/23 07:00 Pulse Ox 93 02/01/23 09:44 O2 Del Method Heated High Flow 02/01/23 04:00 O2 Flow Rate 40 02/01/23 08:10 FiO2 40 02/01/23 08:10 01/31/23 02/01/23 02/01/23 22:59 06:59 14:59 Intake Total 663.9 / 1431.9 883.042 / 2314.942 200 / 200 Output Total 650 / 1350 1175 / 2525 Balance 13.9 / 81.9 -291.958 / -210.058 200 / 200 Weight last 48 hrs Weight 172 lb 15.739 oz Weight 177 lb 15.739 oz Physical Exam Narrative: GENERAL: Patient is alert, awake NECK: No jugular vein distension. [] HEENT: No cyanosis. No icterus. No pallor. [] HEART: Regular S1 and S2. LUNGS: Diminished air entry bilaterally CENTRAL NERVOUS SYSTEM: Grossly nonfocal. [] EXTREMITIES: Lower extremities with 1+ edema bilaterally. Urinary Catheter Management: Whitman: Cath Placed During This Visit: yes Reason for Continuing Indwelling Catheter: Accurate Measurement of Urinary Output in Critically Ill Patients Urinary Catheter Date of Insertion: 01/26/23 Data 02/01/23 04:04 02/01/23 04:04 Micro: Microbiology 01/26/23 10:26 Blood Culture - Final Blood NO GROWTH AFTER 5 DAYS 01/26/23 10:20 Blood Culture - Final Blood NO GROWTH AFTER 5 DAYS A&P Assessment and plan (1) Ventricular tachycardia: (2) Elevated troponin I level: (3) Intermittent atrial fibrillation: (4) Acute DVT (deep venous thrombosis): (5) Ischemic cardiomyopathy: (6) KARL (acute kidney injury): Plan Patient's rhythm is stable today. Discussions regarding goals of care with primary team. Patient and family changing code status. Considering hospice. Till patient is not on hospice, continue current medications. Thank you for involving us with care of this patient. We will continue to follow. Please call with questions. Attestations Medical Necessity Statement*: Care expected to cross 2 midnights. Coding Level of Care Code Acute Code for Chg Fwd Diagnoses Ventricular tachycardia I47.20 Elevated troponin I level R77.8 Intermittent atrial fibrillation I48.0 Acute DVT (deep venous thrombosis) I82.409 Ischemic cardiomyopathy I25.5 KARL (acute kidney injury) N17.9
[2023-02-01] MEDS: potassium chloride oral liq 20 mEq/15 mL UDC 40 MEQ DOBHOFF (11:40)
[2023-02-01 12:37] LABS: Partial Thromboplastin Time 80.8 SECONDS (23.9-36.7)
--- NOTE | 2023-02-01 15:10 | PM.PN ---
Subjective Subjective: Patient having severe pain with his cough. He states it is uncontrolled. His only wish at this time is for the pain to improve. Vitals/I&O/Wt Last Vital Signs Temp 98.8 F 02/01/23 08:00 Pulse 54 L 02/01/23 13:15 Resp 20 H 02/01/23 13:15 BP 122/63 02/01/23 13:15 Pulse Ox 95 02/01/23 13:15 O2 Del Method Heated High Flow 02/01/23 13:15 O2 Flow Rate 40 02/01/23 13:15 FiO2 40 02/01/23 13:15 02/01/23 02/01/23 02/01/23 06:59 14:59 22:59 Intake Total 883.042 / 2314.942 365.28 / 365.28 Output Total 1175 / 2525 Balance -291.958 / -210.058 365.28 / 365.28 Weight last 48 hrs Weight 78.464 kg Weight 80.732 kg Physical Exam Narrative: Frail elderly male in acute distress due to cough and pain from the rib fractures ENT: Heated high flow present and Dobbhoff tube present no active bleeding at this time Heart: Distant heart sounds mostly bradycardic a few louder beats when it is paced. Lungs: Diminished throughout, crackles Abdomen: Soft nontender nondistended positive bowel sounds Extremities: Mild edema Urinary Catheter Management: Whitman: Cath Placed During This Visit: yes Reason for Continuing Indwelling Catheter: Accurate Measurement of Urinary Output in Critically Ill Patients Urinary Catheter Date of Insertion: 01/26/23 Data 02/01/23 04:04 02/01/23 04:04 Micro: Microbiology 01/26/23 10:26 Blood Culture - Final Blood NO GROWTH AFTER 5 DAYS 01/26/23 10:20 Blood Culture - Final Blood NO GROWTH AFTER 5 DAYS A&P Assessment and plan (1) V-tach: s/p V-fib arrest. Received CPR, ROSC was obtained in about 2 minutes Echo shows diminished ejection fraction of 35- 40% Cardiology was consulted. amiodarone drip was started. However patient continued to have episodes of V. tach. Lidocaine was then initiated and successful. Until the patient started developing hallucinations when the lidocaine drip had to be turned off. He continues to have recurrent V. tach: Although mostly asymptomatic. AICD settings have been adjusted during the course of this admission (2) Cardiac arrest: Status postcardiac arrest upon arrival with cardiogenic shock thereafter. Neurologic overall intact but patient is severely weak and lethargic (3) Acute respiratory failure: Extubation occurred on 01/27. His cough has worsened since extubation. He has significant aspiration. New aspiration pneumonia documented on chest x-ray Currently on antibiotic coverage with piperacillin/tazobactam and vancomycin. He is currently on a heated high flow 40% FiO2 at 40 L/min. Gets easily fatigued and hypoxic when attempting conversation lasting more than a few sentences. (4) KARL (acute kidney injury): Significant acute kidney injury postcode Whitman has been placed. Renal function stabilizing. Lasix was reinitiated and escalated to 40 every 12 Nephrology consultation appreciated, no indication for dialysis currently (5) Leukocytosis: Now resolved (6) Elevated troponin: Secondary to postcode (7) Ischemic cardiomyopathy: Echo with LV systolic function is moderately reduced with EF of 35-40% (8) Chronic systolic (congestive) heart failure: Patient with history of chronic systolic heart failure (9) Acute DVT (deep venous thrombosis): Patient with acute DVT Placed on a heparin drip on admission Status post IVC filter on January 29, 2023 Plan I met with patient and 2 daughters yesterday for palliative care consult. Unfortunately, patient is not improved; in fact, he is experiencing much pain with his cough. I increased the patient's pain medication today with more frequent dosing of morphine. It does help the pain however his blood pressure starts to lower. Cessation I had with patient and family I did not escalate care. Met with daughters later this afternoon after I rounded. The daughters are in agreement with hospice and Payal says that is mostly what her dad wants and that he wants to go home. Will plan for DC home with hospice tomorrow. In the interim stop heparin drip will continue feeding tube for now to allow a few more doses of medication prior to discharge. There will be no escalation of care and we will provide comfort. [employer] has been contacted to turn off the defibrillator status on patient's pacemaker/AICD. We will keep pacemaker mode on since he is currently pacing. Attestations Medical Necessity Statement*: Patient is transitioning to home hospice Coding Level of Care Code Acute Code for [facility] Fwd Diagnoses V-tach I47.20 Cardiac arrest I46.9 Acute respiratory failure J96.00 KARL (acute kidney injury) N17.9 Leukocytosis D72.829 Elevated troponin R77.8 Ischemic cardiomyopathy I25.5 Chronic systolic (congestive) heart failure I50.22 Acute DVT (deep venous thrombosis) I82.409
[2023-02-01] MEDS: morphine 10 mg/0.5 mL oral liq UD 20 MG PO ×2 (15:56→20:38)
--- NOTE | 2023-02-01 18:50 | PC.NURSE ---
Shift summary: Pt rested in bed throughout the shift. Family made the decision for Hospice planning for discharge tomorrow. Jevity 1.2 tube feeding stopped, Dobhoff left in place for further med administration while still in hospital. Heparin gtt stopped. Oral MOrphien dose increased, it has helped. He does not complain of pain as often or rate it as high as he had been. He has been dozing/resting with his eyes closed for most of the afternoon. His pacemaker still firing frequently. His potassium was low today, replacements done by manager shift. He received more replacements PO and IV this am. Lasix was held this am due to low potassium. Urine out put of 500ml this shift. Family has been at bedside and attentive to Jesus.
[2023-02-01] MEDS: lanolin oint 7 gm 1 APPLIC TOPICAL (20:39)
[2023-02-02] VITALS (16 sets, daily range): BP systolic 103–133; BP diastolic 52–75; PULSE 48–68; RESP 16–22; TEMP 36.5–36.6; O2SAT 94–98
[2023-02-02] MEDS: morphine 4 mg/mL SDV 1 mL IVP ×2 (00:14→15:10)
[2023-02-02] MEDS: morphine 10 mg/0.5 mL oral liq UD 20 MG PO ×3 (02:44→14:11)
[2023-02-02] MEDS: amiodarone 200 mg Tablet 400 MG NG-TUBE (09:13)
--- NOTE | 2023-02-02 09:30 | PC.NURSE ---
Dobhoff feeding tube removed. Pt tolerated very well. CVL, right IJ, removed after removing stitches. Cath tip intact. NO redness or s/s of infection noted. Pt tolerated well.
--- NOTE | 2023-02-02 13:08 | PC.SOCIAL ---
IMM Updated Updated pt's daughters on IMM. No questions voiced. Provided pt a copy. Initialed, dated, & timed copy in chart.
[2023-02-02] MEDS: lanolin oint 7 gm 1 APPLIC TOPICAL (14:12)
--- NOTE | 2023-02-02 14:30 | PC.NURSE ---
Pacemaker: AICD / V-tach functions stopped by Dr Navarrete.
--- NOTE | 2023-02-02 15:20 | PC.NURSE ---
Ambulance crew here. Discharge info/instructions provided and discussed with chelsea Hernandez. No persnal belongings present. Pt discharged.
--- NOTE | 2023-02-03 18:59 | P.DS_ITS ---
Discharge Providers Date of Admission: 01/26/23 13:34 Date of Discharge: February 03, 2023 Attending Provider at Admission: Emmanuel Villarreal MD Attending Provider at Discharge: Estuardo Navarrete DO Consults: Cardiology and nephrology Primary Care Provider: Gene Peralta Diagnoses at Discharge Discharge Diagnosis (1) V-tach: Status: Acute (2) Cardiac arrest: Status: Resolved (3) Acute respiratory failure: Status: Acute (4) KARL (acute kidney injury): Status: Acute (5) Leukocytosis: Status: Acute (6) Elevated troponin: Status: Resolved (7) Ischemic cardiomyopathy: Status: Acute (8) Chronic systolic (congestive) heart failure: Status: Chronic (9) Acute DVT (deep venous thrombosis): Status: Acute Reason for Visit Reason for Visit: chest pain/SOB Brief History: Patient had his defibrillator camp the morning of presentation. in the ER he suffered V-fib arrest. Hospital Course Hospital Course Patient was admitted to the critical critical care unit status post V-fib arrest in the emergency room he was intubated in the emergency room but subsequently extubated the following day. Cardiology was emergently consulted amiodarone drip was started and then eventually a lidocaine drip. He continued to have breakthrough V. tach that was asymptomatic. The lidocaine drip had to be discontinued due to hallucination darted to experience a significant cough and he had rib fractures from resuscitation it was suspected that he was aspirating. He was started on antibiotics. He required heated high flow 40% FiO2 at 40 L/min. Patient was getting progressively weaker and having more pain. His kidn eys stabilized and he was started on Lasix due to his diminished ejection fraction of approximately 30 to 35%. He was also found to have a DVT and placed on a heparin drip and received an IV C filter. After a few lengthy conversations with the patient and 2 daughters the patient stated strongly that he wanted to go home was eventually excepting of his terminal condition and no escalation of care decision was made and comfort meds were started. The defibrillator aspect of his device was turned off and he was discharged home with hospice. Physical Exam Narrative: Frail elderly male in no acute distress ENT: Heated high flow present and Dobbhoff tube present no active bleeding at this time Heart: Distant heart sounds mostly bradycardic a few louder beats when it is paced. Lungs: Diminished throughout, crackles Abdomen: Soft nontender nondistended positive bowel sounds Extremities: Mild edema Urinary Catheter Management: Whitman: Cath Placed During This Visit: yes Reason for Continuing Indwelling Catheter: Accurate Measurement of Urinary Output in Critically Ill Patients Urinary Catheter Date of Insertion: 01/26/23 Discharge Data Studies Completed and Pending Completed Studies During Hospitalization Category Date Time Status CXRP [XR chest 1V portable [id number]] AM LABS Exams 01/30/23 04:00 Completed XR chest 1V portable [id number] Routine Exams 01/27/23 07:15 Completed XR chest 1V portable [id number] Routine Exams 01/28/23 07:54 Completed XR chest 1V portable [id number] Routine Exams 01/29/23 07:00 Completed XR chest 1V portable [id number] Routine Exams 01/30/23 17:45 Completed XR chest 1V portable [id number] Stat Exams 01/26/23 07:09 Completed XR chest 1V portable [id number] Stat Exams 01/26/23 08:29 Completed XR chest 1V portable [id number] Stat Exams 01/30/23 21:25 Completed XR chest 1V portable [id number] Stat Exams 01/31/23 18:36 [place] [id number] Routine Ultrasound 01/26/23 10:07 Completed CV. echo complete* [id number] Routine Ultrasound 01/26/23 09:13 Completed US renal BI with PV bladder Routine Ultrasound 01/28/23 07:54 Completed Pending at discharge Category Date Time Status [employer] request for service Routine Exams 01/29/23 10:28 Taken Radiology Impressions Renal Ultrasound 01/28/23 07:54 IMPRESSION: No specific focal abnormalities other than the renal cyst on the left Chest X-Ray 01/31/23 18:36 IMPRESSION: 1. Stable cardiomegaly. 2. Stable bilateral pulmonary opacities most consistent with pneumonia versus atypical pulmonary edema. 3. Stable moderate left basilar atelectasis and/or infiltrate and/or effusion. ADDENDUM: 01/31/23 194 Impression: 4. Dobbhoff tube tip is over the gastric body (mid stomach). Laboratory Results WBC 5.4 10^3/uL (4.0-10.0) 02/01/23 04:04 RBC 2.42 10^6/uL (4.1-5.3) L 02/01/23 04:04 Hgb 7.4 g/dL (11.7-16.6) L 02/01/23 04:04 Hct 22.4 % (42.0-52.0) L 02/01/23 04:04 MCV 92.6 fl (80-94) 02/01/23 04:04 MCH 30.6 pg (28.0-34.0) 02/01/23 04:04 MCHC 33.0 g/dL (30.0-36.0) 02/01/23 04:04 RDW 16.5 % (12.1-15.1) H 02/01/23 04:04 Plt Count 90 10^3/cmm (130-400) L 02/01/23 04:04 MPV 9.2 fL (7.4-10.4) 02/01/23 04:04 Neut % (Auto) 71.9 % 02/01/23 04:04 Lymph % (Auto) 10.6 % 02/01/23 04:04 [place] % (Auto) 11.9 % 02/01/23 04:04 Eos % (Auto) 4.3 % 02/01/23 04:04 Baso % (Auto) 0.6 % 02/01/23 04:04 Neut # (Auto) 3.87 10^3/uL (1.8-7.7) 02/01/23 04:04 Lymph # (Auto) 0.6 10^3/uL (0.8-4.8) L 02/01/23 04:04 [place] # (Auto) 0.6 10^3/uL (0.2-0.9) 02/01/23 04:04 Eos # (Auto) 0.2 10^3/uL (0.0-0.8) 02/01/23 04:04 Baso # (Auto) 0.0 10^3/uL (0.0-0.1) 02/01/23 04:04 Nucleated RBC % (auto) 0 % 02/01/23 04:04 Total Counted 100 (0-100) 01/28/23 13:11 Atypical Lymphs % 0.0 % (0-5) 01/28/23 13:11 Absolute Neutrophils 16.7 10^3/cmm (1.4-6.5) H 01/28/23 13:11 Segmented Neutrophils 73 % 01/28/23 13:11 Abs Segm Neuts (Man) 13.4 10/cmm (1.6-7.1) H 01/28/23 13:11 Band Neutrophils 18.0 % 01/28/23 13:11 Abs Band Neuts (Man) 3.3 10^3/cmm (0.0-1.2) H 01/28/23 13:11 Absolute Lymphocytes 0.6 10^3/cmm (1.2-3.4) L 01/28/23 13:11 Lymphocytes (Manual) 3 % 01/28/23 13:11 Monocytes (Manual) 3.0 % 01/28/23 13:11 Absolute Monocytes 0.6 10^3/cmm (0.1-0.6) 01/28/23 13:11 Eosinophils (Manual) 0 % 01/28/23 13:11 Absolute Eosinophils 0.0 10^3/cmm (0.0-0.7) 01/28/23 13:11 Basophils (Manual) 2.0 % 01/28/23 13:11 Absolute Basophils 0.4 10^3/cmm (0.0-0.2) H 01/28/23 13:11 Metamyelocytes 1.0 % 01/28/23 13:11 Myelocytes 0.0 % 01/28/23 13:11 Promyelocytes 0.0 % 01/28/23 13:11 Nucleated RBCs 0.0 /100WBC (0-1) 01/28/23 13:11 Nucleated RBCs # 0.0 /100WBC 02/01/23 04:04 Toxic Granulation 1+ H 01/28/23 13:11 Dohle Bodies 1+ H 01/28/23 13:11 Platelet Estimate Normal (Normal) 01/28/23 13:11 APTT 80.8 SECONDS (23.9-36.7) H 02/01/23 11:50 Specimen Type Arterial 01/27/23 04:03 Sample Site Radial, right 01/27/23 04:03 ABG pH 7.38 (7.35-7.45) 01/27/23 04:03 ABG pCO2 36.7 mmHg (35-45) 01/27/23 04:03 ABG pO2 76.8 mmHg (80.0-100.0) L 01/27/23 04:03 ABG HCO3 21.7 mmol/L (22-26) L 01/27/23 04:03 ABG O2 Saturation > 100.0 01/26/23 08:33 ABG Base Excess -3.0 mmol/L (-2.0-2.0) L 01/27/23 04:03 Daniel Test Pos 01/27/23 04:03 A-a O2 Gradient 28.4 mmHg (5-10) H 01/26/23 08:33 Hematocrit 27.5 % (42-52) L 01/27/23 04:03 Hgb O2 Saturation 99.0 % (95-100) 01/26/23 08:33 Carboxyhemoglobin 0.9 %THgb (0.4-20.1) 01/26/23 08:33 Methemoglobin 0.8 % (0.4-1.5) 01/26/23 08:33 Total Hemoglobin 10.5 g/dL (14-18) L 01/26/23 08:33 Sodium 143.0 mmol/L (131-143) 01/26/23 08:33 Potassium 3.8 mmol/L (3.5-5.0) 01/26/23 08:33 Glucose 162.0 mg/dL (70-115) H 01/26/23 08:33 Ionized Calcium 1.2 mmol/L (1.1-1.4) 01/26/23 08:33 O2 Delivery Device Vent 01/27/23 04:03 O2 Liters/Min 15.0 % 01/26/23 07:23 FiO2 28.0 % 01/27/23 04:03 Tidal Volume 0.45 01/26/23 08:33 PEEP 5.0 cmH20 01/27/23 04:03 Shift Nurse Manager ID Alewe 01/27/23 04:03 Sodium 144 mmol/L (136-145) 02/01/23 04:04 Potassium 2.6 mmol/L (3.5-5.1) L* 02/01/23 04:04 Chloride 109 mmol/L (98-107) H 02/01/23 04:04 Carbon Dioxide 25 mmol/L (22-29) 02/01/23 04:04 Anion Gap 12.6 (5-19) 02/01/23 04:04 BUN 25 mg/dL (8-23) H 02/01/23 04:04 Creatinine 1.5 mg/dL (0.7-1.2) H 02/01/23 04:04 GFR Calculation Not Reportable 02/01/23 04:04 Glucose 85 mg/dL (65-115) 02/01/23 04:04 POC Glucose 98 mg/dL (70-110) 01/31/23 20:17 Calculated Osmolality 302 mOsm/kg (285-295) H 02/01/23 04:04 Calcium 8.3 mg/dL (8.5-10.5) L 02/01/23 04:04 Magnesium 2.2 mg/dL (1.7-2.3) 01/31/23 05:05 Total Bilirubin 1.9 mg/dL (0.15-1.2) H 02/01/23 04:04 AST 99 U/L (0-40) H 02/01/23 04:04 ALT 62 U/L (0-41) H 02/01/23 04:04 Alkaline Phosphatase 65 U/L (40-130) 02/01/23 04:04 Troponin T Baseline 67 ng/L (0-15) H 01/26/23 08:24 Troponin T 120 Minute 84.63 ng/L (0-15) H 01/26/23 10:20 Delta Troponin T 17.63 ABS# (0-10) H* 01/26/23 10:20 Troponin T Hi Sens 6Hr 153.9 ng/L (0-15) H 01/26/23 14:38 Troponin T Hi Sens 6Hr Delta 86.9 ng/L (0-12) H* 01/26/23 14:38 Total Protein 4.9 g/dL (6.6-8.7) L 02/01/23 04:04 Albumin 3.6 g/dL (3.5-5.2) 02/01/23 04:04 Globulin 1.3 g/dL (1.3-4.6) 02/01/23 04:04 TSH 1.04 uIU/mL (0.27-4.20) 01/26/23 08:24 Urine Color Yellow (Yellow) 01/26/23 10:00 Urine Appearance Clear (CLEAR) 01/26/23 10:00 Urine pH 5 (5-7) 01/26/23 10:00 Ur Specific [place] 1.020 (1.005-1.030) 01/26/23 10:00 Urine Protein Trace (Negative) 01/26/23 10:00 Urine Glucose (UA) Norm (Normal) 01/26/23 10:00 Urine Ketones Negative (Negative) 01/26/23 10:00 Urine Blood Neg (Negative) 01/26/23 10:00 Urine Nitrate Negative (Negative) 01/26/23 10:00 Urine Bilirubin Neg (Negative) 01/26/23 10:00 Urine Urobilinogen Norm mg/dL (Negative) 01/26/23 10:00 Ur Leukocyte Esterase Negative (Negative) 01/26/23 10:00 Urine RBC 0-4 /hpf (0-2) H 01/26/23 10:00 Urine WBC 0-4 /hpf (0-5) H 01/26/23 10:00 Ur Squamous Epith Cells 5-10 /hpf (0-5) H 01/26/23 10:00 Amorphous Sediment Not Reportable 01/26/23 10:00 Urine Bacteria None /hpf (NONE) 01/26/23 10:00 Hyaline Casts 25-40 /lpf H 01/26/23 10:00 Fine Granular Casts 0-4 /lpf H 01/26/23 10:00 Urine Mucus 2+ /hpf 01/26/23 10:00 Vancomycin Trough 9.8 ug/mL (10-15) L 01/30/23 09:31 Coronavirus 229E (PCR) Not detected (NOT DETECT) 01/28/23 09:04 SARS-CoV-2 (PCR) Not detected (NOT DETECT) 01/28/23 09:04 Blood Type A Positive 01/28/23 15:41 Rho(D) Type Positive 01/28/23 15:41 Antibody Screen Negative 01/28/23 15:41 Crossmatch See Detail 01/28/23 15:41 Vitals Last Vital Signs Temp 97.7 F 02/02/23 04:00 Pulse 60 02/02/23 15:20 Resp 16 02/02/23 15:20 BP 132/67 02/02/23 14:00 Pulse Ox 95 02/02/23 15:20 O2 Del Method High Flow Nasal Cannula 02/02/23 14:00 O2 Flow Rate 4 02/02/23 14:00 FiO2 40 02/02/23 12:00 Discharge Plan Discharge Patient Disposition: Hospice - Home Condition: Serious Prescriptions: Continued lidocaine [Salonpas (lidocaine)] 4 % adhesive patch,medicated 1 patch topical DAILY PRN (Reason: Pain) morphine concentrate 100 mg/5 mL (20 mg/mL) solution 20 mg sublingual DIRECTED PRN (Reason: Pain/SOB) 14 Days Qty: 30 0RF Rx Instructions: 0.25ml-1ml q1H PRN may increase to 0.5ml-1ml Q1H PRN bisacodyl 10 mg suppository 10 mg OK DAILY PRN (Reason: constipation) Qty: 5 0RF Rx Instructions: 1 suppository per rectum every day PRN for constipation. atropine 1 % drops 4 drp sublingual Q4H PRN (Reason: secretions) Qty: 5 0RF Rx Instructions: 4 drops SL q 4 hours PRN for terminal congestion/excessive secretions. ondansetron 4 mg tablet,disintegrating 4 mg translingual Q4H PRN (Reason: nausea) Qty: 5 0RF Rx Instructions: Dissolve 1 tablet under tongue every 4 hours PRN for nausea lorazepam 2 mg/mL concentrate 2 mg sublingual Q4H PRN (Reason: Anxiety/Seizure) Qty: 30 0RF Rx Instructions: 0.25ml-1ml q4H PRN Anxiety/Seizure Start 0.25ml may increase to 0.5ml-1ml q4H levothyroxine 75 mcg tablet 75 mcg PO QAM melatonin 5 mg Tablet,Disintegrating 5 mg PO BEDTIME prochlorperazine maleate 5 mg tablet 5 mg PO Q6H PRN (Reason: Nausea And Vomiting) Nitrostat 0.4 mg Tablet, Sublingual 0.4 mg SUBLINGUAL Q5M PRN (Reason: Chest Pain) Rx Instructions: do not exceed 3 doses per episode ondansetron 4 mg tablet,disintegrating 4 mg PO Q8H PRN (Reason: Nausea And Vomiting) Discontinued clopidogrel 75 mg tablet 75 mg PO QAM Qty: 90 3RF Hold Instructions: Resume on 06/06/22. metoprolol tartrate 25 mg tablet 12.5 mg PO BID Qty: 60 3RF amiodarone 200 mg tablet 200 mg PO BID Qty: 180 3RF Rx Instructions: RX FILLED 01/11/23 90D/S PT NOT BEEN TAKING ONLY TAKING 100MG DAILY rosuvastatin 40 mg tablet 40 mg PO BEDTIME Centrum Silver 400-250 mcg Tablet,Chewable 1 tab PO DAILY potassium chloride [Klor-Con M20] 20 mEq Tablet,Er Particles/Crystals 60 meq PO BID 30 Days Qty: 180 3RF bumetanide 2 mg tablet 2 mg PO BID acetaminophen [Tylenol Arthritis] 650 mg Tablet Extended Release 1,300 mg PO Q12H PRN (Reason: Pain) docusate sodium [Stool Softener] 100 mg Capsule 100 mg PO BID polyethylene glycol 3350 [Miralax] 17 gram/dose powder 17 g PO DAILY PRN (Reason: constipation) amiodarone [Pacerone] 100 mg tablet 100 mg PO DAILY albuterol sulfate 90 mcg/actuation HFA aerosol inhaler 2 puff INHALATION Q6H PRN (Reason: Shortness Of Breath) ferrous sulfate [Feosol] 325 mg (65 mg iron) tablet 325 mg PO DAILY Qty: 90 1RF Discharge Orders: Discharge Order (Routine); Ordered 02/02/23 Ordered By: Estuardo Navarrete [place] [facility] [place] [place]Outside] Gene Peralta [Primary Care Provider] - Discharge Diet: Advance as tolerated Discharge Activity: Increase activity as tolerated Patient Instructions: Colocaci?n de filtro en la vena cava inferior (DC) Discharge Attestations Time Spent in Discharge Care*: greater than 30 min Quality Metrics Clinical Quality Measures [ No reported AMI, CVA or VTE this stay] Coding Level of Care Code Acute Code for [facility] Fwd Diagnoses V-tach I47.20 Cardiac arrest I46.9 Acute respiratory failure J96.00 KARL (acute kidney injury) N17.9 Leukocytosis D72.829 Elevated troponin R77.8 Ischemic cardiomyopathy I25.5 Chronic systolic (congestive) heart failure I50.22 Acute DVT (deep venous thrombosis) I82.409
== END 2023-02-02 15:20 | disposition hospice, home (50) | DRG 296 ==
LOC: ER 10:12 → ICU 13:27
PROVIDERS: Internal Medicine; Student in an Organized Health Care Education/Training Program; Admitting Provider Internal Medicine; Emergency Provider Family Medicine; PCP Family Medicine; Visit Provider Internal Medicine
PROC: 06H03DZ Insertion of Intraluminal Device into Inferior Vena Cava, Percutaneous Approach (ICD-10-PCS; CPT 37191; principal; 2023-01-29 13:00)
DX: I46.9 Cardiac arrest, cause unspecified (principal); I50.23 Acute on chronic systolic (congestive) heart failure; J69.0 Pneumonitis due to inhalation of food and vomit; J96.00 Acute respiratory failure, unspecified whether with hypoxia or hypercapnia; N17.9 Acute kidney failure, unspecified; I13.0 Hypertensive heart and chronic kidney disease with heart failure and stage 1 through stage 4 chronic kidney disease, or unspecified chronic kidney disease; I82.412 Acute embolism and thrombosis of left femoral vein; I82.451 Acute embolism and thrombosis of right peroneal vein; I82.431 Acute embolism and thrombosis of right popliteal vein; R44.3 Hallucinations, unspecified; I24.8 Other forms of acute ischemic heart disease; E87.1 Hypo-osmolality and hyponatremia; E87.20 Acidosis, unspecified; I47.20 Ventricular tachycardia, unspecified; I25.5 Ischemic cardiomyopathy; N18.9 Chronic kidney disease, unspecified; Z95.810 Presence of automatic (implantable) cardiac defibrillator; Z79.891 Long term (current) use of opiate analgesic; I48.0 Paroxysmal atrial fibrillation; I27.20 Pulmonary hypertension, unspecified; T41.3X5A Adverse effect of local anesthetics, initial encounter; T46.2X6A Underdosing of other antidysrhythmic drugs, initial encounter; Z91.138 Patient's unintentional underdosing of medication regimen for other reason; Z66 Do not resuscitate; I95.9 Hypotension, unspecified; E78.5 Hyperlipidemia, unspecified; I25.10 Atherosclerotic heart disease of native coronary artery without angina pectoris
CPT/HCPCS: 31500; 36010; 36415; 36416; 36430; 36556; 36592; 36600; 37191; 51702; 71045; 76770; 76857; 80048; 80051; 80053; 80202; 81001; 82330; 82803; 82805; 82962; 83735; 84443; 84484; 85007; 85014; 85018; 85025; 85730; 86850; 86900; 86920; 87040; 87070; 87205; 87635; 87641; 92507; 92523; 92526; 92610; 93005; 93306; 93970; 94002; 94003; 94799; 96365; 96366; 96367; 96375; 96376; 99291; C1769; C1880; C1887; C1894; C9113; J0153; J0282; J1265; J1644; J1940; J2001; J2250; J2270; J2405; J2543; J2704; J2930; J3010; J3370; J3475; J3480; J3490; J7050; J7060; J7131; P9016; P9046; Q3014; Q9967